=== PATIENT | male | born 1960 | race Caucasian/White ===

== ENCOUNTER → 2018-09-14 10:56 | Outpatient (REF) | payer BC, SELFPAY ==
[2018-09-09 11:35] VITALS: BMI 34.4
== END ==
LOC: CVS 10:56
PROVIDERS: Family Provider Family Medicine; PCP Family Medicine; Referring Provider Internal Medicine Cardiovascular Disease; Visit Provider Internal Medicine Cardiovascular Disease
DX: R00.2 Palpitations (principal)
CPT/HCPCS: 93270

== ENCOUNTER → 2018-10-14 08:28 | Outpatient (CLI) | payer BC, SELFPAY ==
[2018-10-09 13:48] VITALS: BMI 34.4
[2018-10-14 10:35] LABS: BNP,B-Type NATRIURETIC PEPTIDE 131.8 pg/mL (0-100)
== END ==
PROVIDERS: Family Provider Family Medicine; PCP Family Medicine; Referring Provider Internal Medicine Cardiovascular Disease; Visit Provider Internal Medicine Cardiovascular Disease
DX: I47.1 Supraventricular tachycardia (principal); I48.92 Unspecified atrial flutter; R00.2 Palpitations; R06.00 Dyspnea, unspecified
CPT/HCPCS: 36415; 83880

== ENCOUNTER → 2018-11-06 06:28 | Outpatient (CLI) | payer BC, SELFPAY ==
[2018-10-09 13:48] VITALS: BMI 34.4
--- NOTE | 2018-11-06 09:15 | STRESSREP ---
Stress Test Report Pharmacologic myocardial perfusion stress test. 57-year-old man with a history of atrial flutter. Stress protocol: Resting EKG demonstrates atrial flutter with a rate of 73 bpm resting blood pressures 118/80 6 cm of mercury. 0.4 mg of regadenoson was infused per usual protocol fluid Intravenous saline flush injection continuous borematic operator was performed. The maximum heart rate attained was 113 bpm which was 68% of maximum predicted heart rate and maximum workload was 1 metabolic equivalent. The patient maintained atrial flutter throughout the recording with no EKG changes suggestive of ischemia. The resting blood pressure was 118/86 with a final blood pressure 120/70 mmHg. Myocardial perfusion protocol. 14.8 mCi of technetium 99m sestamibi was injected at rest. 0.4 mg of regadenoson was infused per usual protocol. At peak infusion 44.6 mCi of technetium 99m sestamibi was injected stress images were obtained stress and rest images were reconstructed and compared in the short axis vertical and horizontal long axis. Gated images were also obtained Perfusion SPECT analysis: Review of the stress images demonstrate a normal cardiac silhouette size. The septum anterior wall lateral wall appear to be well perfused. The inferior wall demonstrates reduced perfusion from base to mid ventricle. The above is either suggestive of significant diaphragmatic attenuation or GI uptake. Previous infarct cannot be completely excluded. Gated SPECT analysis: The gated ejection fraction is noted to be 48%. Conclusion: Pharmacologic myocardial perfusion stress test with no obvious ischemia noted. Previous inferior infarct cannot be completely excluded. Mild cardiomyopathy. Atrial flutter present.
== END ==
PROVIDERS: Family Provider Family Medicine; PCP Family Medicine; Referring Provider Internal Medicine Cardiovascular Disease; Visit Provider Internal Medicine Cardiovascular Disease
DX: I48.0 Paroxysmal atrial fibrillation (principal); I48.92 Unspecified atrial flutter; I42.9 Cardiomyopathy, unspecified
CPT/HCPCS: 78452; 93017; A9500; A4216; J2785

== ENCOUNTER → 2020-05-08 | Outpatient (CLI) | payer OTHER, SELFPAY ==
[2019-12-14 13:25] VITALS: BMI 34.1
--- NOTE | 2020-05-08 11:30 | PROSBIL_PTH ---
PATIENT: ELMIRA PLASENCIA LOC: [facility] U#:[id number] AGE/SX: 59/M ROOM: RE05/08/[address]: Dr. Seth Santamaria MD : 1960 BED: DIS: 05/08/2020 SPEC #: [id number] RECD: 05/08/20 12:24 STATUS: ZHENG REQ #: [id number] DIANA: 05/08/20 11:[address]: Seth Santamaria DEPT: SURGICAL PATHOLOGY RECD BY: Yisel Price ENTERED: 05/08/20 13:02 SP TYPE: PROST BX MATEO DR: Dr. Sandro Khan MD Tissues: A - PROSTATE RIGHT B - PROSTATE RIGHT C - PROSTATE RIGHT D - PROSTATE LEFT E - PROSTATE LEFT F - PROSTATE LEFT Procedures: PROSTATE BX HEADER OPERATION: Prostate biopsy PRE-OP DIAGNOSIS: Elevated PSA TISSUE SUBMITTED: A - Right apex, B - Right mid, C - Right base, D - Left apex, E - Left mid, F - Left base MICROSCOPIC DIAGNOSIS A. Right prostate, apex, core biopsy: Prostatic adenocarcinoma. Chuck grade: 5+5-10 Number of cores involved: 1/2 Proportion of tissue involved: 15-20% Perineural invasion: Not identified. Greatest tumor length: 0.7 cm, discontinuous B. Right prostate, mid, core biopsy: Prostatic adenocarcinoma. Chuck grade: 4+4=9 Number of cores involved: 2/2 Proportion of tissue involved: ~95% Perineural invasion: Present. Greatest tumor length: 1.4 cm See comment. C. Right prostate, base, core biopsy: Prostatic adenocarcinoma. Chuck grade: 5+3=8 Number of cores involved: 3/3 Proportion of tissue involved: 100% Perineural invasion: Present Greatest tumor length: 1.2 cm See comment. D. Left prostate, apex, core biopsy: Prostatic tissue, negative for malignancy. E. Left prostate, mid, core biopsy: Prostatic tissue, negative for malignancy. F. Left prostate, base, core biopsy: Prostatic tissue, negative for malignancy. SJ:martin 05/09/2020 COMMENT B. Tertiary pattern 3 is also noted. C. Tertiary pattern 4 is also noted. Case has been reviewed in consultation with Dr. Mccann who concurs with the above diagnosis. IDC:AM MICROSCOPIC DESCRIPTION Slides are reviewed. GROSS DESCRIPTION A - Received is one container designated prostate, right apex. The specimen consists of one elongated fragment of light saez-white soft tissue measuring 1 cm in length and 0.1 cm in diameter. The specimen is totally submitted in one cassette. B - Received is one container designated prostate, right mid. The specimen consists of two elongated fragments of light saez-white soft tissue measuring 1 and 1.5 cm in length and 0.1 cm in diameter. The specimen is totally submitted in one cassette. C - Received is one container designated prostate, right base. The specimen consists of three elongated fragments of light saez-white soft tissue measuring 1 and 1.5 cm in length and 0.1 cm in diameter. The specimen is totally submitted in two cassettes. D - Received is one container designated prostate, left apex. The specimen consists of two minute fragments of light saez-white soft tissue measuring 0.2 and 0.3 cm in length and 0.1 cm in diameter. The specimen is totally submitted in one cassette. E - Received is one container designated prostate, left mid. The specimen consists of two elongated fragments of light saez-white soft tissue measuring 0.8 and 1 cm in length and 0.1 cm in diameter. The specimen is totally submitted in one cassette. F - Received is one container designated prostate, left base. The specimen consists of two elongated fragments of light saez-white soft tissue measuring 0.8 and 0.7 cm in length and 0.1 cm in diameter. The specimen is totally submitted in one cassette. / SJ:rg 05/08/20 TC:0 CPT: 65317 x6
== END | disposition home or self-care (01) ==
LOC: LABSPEC 12:59
PROVIDERS: PCP Family Medicine; Referring Provider Urology; Visit Provider Urology
DX: R97.20 Elevated prostate specific antigen [PSA] (principal)
CPT/HCPCS: 88305; G0416

== ENCOUNTER → 2020-05-24 08:21 | Outpatient (CLI) | payer OTHER, SELFPAY ==
[2019-12-14 13:25] VITALS: BMI 34.1
--- NOTE | 2020-05-24 08:25 | NM_ITS ---
CLINICAL: 59-year-old male with reported history of carcinoma of the prostate. WHOLE BODY 99m Tc MDP RADIONUCLIDE BONE SCINTIGRAPHY COMPARISON: None available FINDINGS: Following the intravenous administration of 27.0 mCi of 99m Tc MDP, whole body bone images reveal: 1. Increased radiopharmaceutical concentration is identified in the acromioclavicular and sternoclavicular compartments of both shoulders, lateral glenohumeral compartment of the left shoulder, third and fifth lumbar vertebra posteriorly on the right, bilateral knees, the right-left midfoot. 2. The remaining skeletal structures are scintigraphically unremarkable with normal-appearing renal images and urinary bladder activity identified. NM/Bone Scan Whole Body IMPRESSION: 1. The increase in radiopharmaceutical concentration defined in the bilateral shoulders, lumbar spine, right and left knees, midfoot bilaterally is most consistent with degenerative arthritis. 2. There is no definitive typical scintigraphic evidence of diffuse axial skeletal metastatic disease on the current examination. Electronically Signed: Tod Menezes DO at 18:52 EST Tel , Service support ,
== END ==
PROVIDERS: PCP Family Medicine; Referring Provider Urology; Visit Provider Urology
DX: D40.0 Neoplasm of uncertain behavior of prostate (principal)
CPT/HCPCS: 78306

== ENCOUNTER → 2020-06-01 12:49 | Outpatient (CLI) | payer OTHER, SELFPAY ==
[2019-12-14 13:25] VITALS: BMI 34.1
--- NOTE | 2020-06-01 12:58 | MRI_ITS ---
STUDY: MR PELVIS WITH AND WITHOUT CONTRAST (PROSTATE) REASON FOR EXAM: Male, 59 years old. Prostate carcinoma TECHNIQUE: Standardized multiparametric prostate MRI with T1, T2, DWI/ADC sequences were obtained in 3 orthogonal planes, and dynamic contrast enhancement sequences. 20 mL ml of Dotarem contrast material was administered intravenously for the contrast portion of the examination. COMPARISON: None. FINDINGS: The prostate volume measures 67 mm3. The contours of the prostate gland are lobulated. There is mass effect on the bladder base. The transition zone is heterogenous. PI-RADS DWI score 5 - Focal markedly hypointense on ADC and markedly hyperintense on high b-value DWI; > 1.5 cm on axial. PI-RADS T2W score 5 - Non-circumscribed, homogeneous, moderately hypointense, and 4.2 cm greatest dimension. Contrast enhancement (+) Focal, earlier or contemporaneous with enhancement of adjacent normal prostatic tissues, and corresponding to a suspicious finding on T2WI and/or DWI. The peripheral zone is heterogenous. PI-RADS DWI score 5 - Focal moderately hypointense on ADC and markedly hyperintense on high b-value DWI; >1.5cm on axial or definite extraprostatic extension/invasive behavior. PI-RADS T2W score 5 - Circumscribed, homogenous moderate hypointense focus/mass (likely arising from transitional zone) confined to prostate and > 1.5 cm in greatest dimension or definite extraprostatic invasion/extension. Contrast enhancement (+) Focal, earlier or contemporaneous with enhancement of adjacent normal prostatic tissues, and corresponding to a suspicious finding on T2WI and/or DWI. The seminal vesicles diminished T2 signal intensity along the central right seminal vesicle (image 13 series 5; image 19 series 13), contiguous with prostate mass and demonstrating contrast enhancement, suggesting extraprostatic extension. The rectoprostatic angles are normal. There does not appear to be clear neurovascular involvement. Urinary bladder is normal without wall thickening. The vascular structures of the are normal. The visualized hollow viscus structures are normal. No bone marrow edema or mass lesion depicted. MRI/Pelvis W/WO Contrast IMPRESSION: 1. PIRADS v2.1 2019 -- 5 - Very high (clinically significant cancer is highly likely). Large (4.2 cm) hypointense T2 mass centered in the transitional zone (right dominant), extending into the peripheral zone, with restricted diffusion and contrast enhancement. Probable involvement of the right more than left seminal vesicle. Electronically Signed: Justin Patel MD ([place]) at 14:29 EST , Service support ,
--- NOTE | 2020-06-01 12:59 | RAD_ITS ---
STUDY: X-RAY - ORBITS REASON FOR EXAM: Male, 59 years old. MRI CLEARANCE. HX METAL IN BOTH EYES TECHNIQUE: 2 view(s) of the orbits were obtained. COMPARISON: None. FINDINGS: Normal bilateral orbits without a metallic orbital foreign body. Normal visualized facial bones. Normal paranasal sinuses. The soft tissue structures are unremarkable. RAD/Orbits for Foreign Body IMPRESSION: No demonstrated metallic orbital foreign body. The patient is cleared for an MRI examination. Electronically Signed: Amaury Velasco MD at 13:36 EST , Service support ,
== END ==
PROVIDERS: PCP Family Medicine; Referring Provider Urology; Visit Provider Urology
DX: C61 Malignant neoplasm of prostate (principal)
CPT/HCPCS: 70030; 72197; A9575

== ENCOUNTER 2020-07-06 09:28 | Observation (INO) | payer OTHER, SELFPAY ==
[2019-12-14 13:25] VITALS: BMI 34.1
[2020-06-28 12:00] LABS: Hematocrit 46.3 % (40-54); Hemoglobin 15.7 g/dL (13.0-16.5); Mean Corp Hgb Conc 33.9 g/dL (32-36); Mean Corpuscular Hgb 30.9 pg (27.0-32.0); Mean Corpuscular Volume 91.1 fL (80-94); Mean Platelet Vol. 10.1 fl (6.2-12.0); Platelet Count 211 K/mm3 (150-450); RBC Distribution Width CV 12.6 % (11.6-14.6); RBC Distribution Width SD 41.7 fl (35.1-43.9); Red Blood Count 5.08 M/mm3 (4.6-6.2); White Blood Count 4.2 K/mm3 (4.4-11.0)
[2020-06-28 12:12] LABS: International Normalized Ratio 1.3; Prothrombin Time (Protime)PT. 15.5 SECONDS (11.7-14.9)
[2020-06-28 12:13] LABS: Partial Thromboplast Time 39.8 Seconds (24.1-36.2)
[2020-06-28 12:27] LABS: AST(SGOT) 19 U/L (15-37); Alanine Aminotransfer ALT/SGPT 37 U/L (16-61); Albumin, Serum 3.8 g/dL (3.2-5.0); Alkaline Phosphatase 35 U/L (45-117); Anion Gap 3 (5-15); BUN 20 mg/dL (7-18); Bilirubin, Direct 0.18 mg/dL (0.00-0.30); Calcium,Total 9.2 mg/dL (8.5-10.1); Chloride 109 mmol/L (98-107); Creatinine, Serum 0.95 mg/dL (0.70-1.30); EST Glomerular Filtration Rate 86 mL/min (>60); Est Glom Filt Rate - Afr Amer 104 mL/min (>60); Globulin 3.2 g/dL (2.2-4.2); Glucose 103 mg/dL (74-106); Potassium 3.9 mmol/L (3.5-5.1); Sodium Level 144 mmol/L (136-145)
[2020-07-05] VITALS (14 sets, daily range): BP systolic 120–147; BP diastolic 63–94; PULSE 53–79; RESP 14–18; TEMP 36.3–36.9; O2SAT 92–98; BMI 33.6
--- NOTE | 2020-07-05 | PROST_PTH ---
PATIENT: ELMIRA PLASENCIA LOC: [facility] U#:[id number] AGE/SX: 59/M ROOM: MN305 RE07/06/[address]: Dr. Seth Santamaria MD : 1960 BED: 1 DIS: 07/07/2020 SPEC #: [id number] RECD: 07/06/20 08:59 STATUS: ZHENG NOE #: [id number] DIANA: 07/05/20 00:[address]: Seth Santamaria DEPT: SURGICAL PATHOLOGY RECD BY: Erwin Paniagua ENTERED: 07/06/20 10:44 SP TYPE: PROSTATE OTHR DR: MD Dr. Alex Rooney MD Tissues: A - Adipose tissue B - Lymph node of pelvis, NOS C - Lymph node of pelvis, NOS D - Prostate, NOS Procedures: Surgery Specimen Level IV Surgery Specimen Level V HEADER OPERATION: Lap robotic prostatectomy, nerve monitoring PRE-OP DIAGNOSIS: Prostate cancer TISSUE SUBMITTED: A - Fat over prostate, B - Left pelvic lymph node, C - Right pelvic lymph node, D - Prostate MICROSCOPIC DIAGNOSIS A. Fat over prostate, biopsy: Mature adipose tissue. No evidence of malignancy. B. Left pelvic lymph node, regional lymphadenectomy: One out of one lymph node negative for carcinoma. C. Right pelvic lymph node, regional lymphadenectomy: One out of one lymph node negative for carcinoma. D. Prostate, radical prostatectomy: Adenocarcinoma. See cancer checklist below. AM:martin 07/07/2020 COMMENT PROSTATE CANCER (RADICAL) SUMMARY: Procedure: Radical Prostatectomy Prostate Size: Weight: 81 gm Size: 4.5 x 4.5 x 4.3 cm Histologic type: Adenocarcinoma Histologic grade: 10 (5+5) Percent of Pattern 4: 20% Percent of Pattern 5: 80% Intraductal Carcinoma: Not identified Tumor Quantitation: 85% Extraprostatic Extension: Present, multifocal, (right and left posterolateral and seminal vesicles). Urinary Bladder Neck Invasion: Not identified Seminal Vesicle Invasion: Present Lymphvascular Invasion: Not identified Perineural Invasion: Present, frequent Margins: Focally positive, right lateral margin. Area involved measures 2 mm in greatest dimension. Regional Lymph Nodes: Number of lymph nodes involved by carcinoma: 0 Total Number of Lymph Nodes Examined: 2 (see specimens B & C) Treatment Effect: Unknown Additional Pathologic Findings: Chronic inflammation PATHOLOGIC STAGE: pT3b N0 Mx The above summary is in compliance with [employer] (CAP) Cancer Protocols Checklist and [place] Joint Committee on Cancer (AJCC), Staging Manual, 8th Ed. Reference is made to the patient's prostate biopsy ([id number]) in which high grade prostate carcinoma was identified. Case has been reviewed in consultation with Dr. Calderon who concurs with the above diagnosis. IDC:SJ MICROSCOPIC DESCRIPTION Slides are reviewed. GROSS DESCRIPTION A - Received in fixative is one container labeled with the patient's name and designated fat over prostate. The specimen consists of multiple irregular fragments of yellow fatty tissue that in aggregate measure 4 x 4 x 0.6 cm. Sectioning does not reveal mass lesions. Pyrotechnic [employer]er sections are submitted in one cassette. B - Received in fixative is one container labeled with the patient's name and designated left pelvic lymph node. The specimen consists of multiple irregular fragments of yellow fatty tissue. Dissection reveals two firm saez nodules ranging in size from 0.8 to 1.5 cm. The smaller nodule is submitted in its entirety in cassette 1. The larger nodule is bisected and totally submitted in cassette 2. C - Received in fixative is one container labeled with the patient's name and designated right pelvic lymph node. The specimen consists of two irregular fragments of saez-yellow fatty tissue that in aggregate measure 5.7 x 3.5 x 0.8 cm. Sections reveal a single saez nodule measuring 2 cm in greatest dimension. This nodule is serially sectioned and submitted in one cassette. D - Received in fixative is one container labeled with the patient's name and designated prostate. The specimen consists of a prostate gland weighing 81 gm. The gland measures 4.5 cm transversely, 4.5 cm anterior-posteriorly and 4.3 cm craniocaudally. The attached seminal vesicle and vas deferens are grossly unremarkable. The specimen is differentially inked as follows: anterior - red, right half - blue, left half - green and entire posterior surface - black. The gland is serially sectioned from apex to base at approximately 3-4 mm. No distinct mass lesion is identified. Pyrotechnic Mixer sections are submitted as follows: 1 - distal urethral apex, shave, 2 - bladder shave, 3 & 4 - seminal vesicles, 5 & 6 - most basal section of prostate, 7-10 - apex, 11-16 - mid portion of prostate, 17-20 - basal portion of prostate. / AM:martin 07/06/20 TC:0 CPT: 06492 x3, 85590 ADDENDUM ADDENDUM ADDENDUM ADDENDUM ADDENDUM ADDENDUM ADDENDUM ADDENDUM ADDENDUM ADDENDUM ADDENDUM ADDENDUM ADDENDUM ADDENDUM ADDENDUM ADDENDUM ADDENDUM ADDENDUM ADDENDUM ADDENDUM ADDENDUM 07/15/2022 09:28 ADDENDUM 07/15/2022 09:28 ADDENDUM 07/15/2022 09:28 ADDENDUM 07/15/2022 09:28 ADDENDUM 07/15/2022 09:28 This addendum is added to incorporate an outside pathology consultation report. The case was examined at [facility] (#[id number]) and the following diagnosis was rendered. A. Fat over prostate, biopsy: Fibroadipose tissue with paraganglion, no tumor present B. Left pelvic lymph node, region lymphadenectomy: One lymph node, no tumor present. C. Right pelvic lymph node, region lymphadenectomy: One lymph node, no tumor present. D. Prostate and seminal vesicles, radical prostatectomy: Prostatic adenocarcinoma, Chuck score 9 (5+4), grade group 5, involving approximately 70% of the prostate. Intraductal carcinoma present. Extraprostatic extension present. Tumor invades seminal vesicles. Tumor extends to the right lateral resection margin (2 mm in greatest dimension). Please see complete above mentioned consultation report in EMR
[2020-07-05] MEDS: Lactated Ringers 1,000 ML 100 ML IV ×3 (07:11→12:45)
[2020-07-05] MEDS: Cefazolin 2 GM in 0.9% Normal Saline 100 ML IV (07:57)
--- NOTE | 2020-07-05 08:04 | HP.PCM_ITS ---
Problem List (1) Prostate cancer Status: Acute History of Present Illness Date of Admission: 07/05/20 Chief Complaint: Prostate cancer right prostate nodule The patient is a 59 year old male with a history of recent diagnosis of high- grade prostate cancer [place] [address] disease. He has a right hard nodule on the right side of the prostate concerned that may have extracapsular extension on that side we plan to do a wide dissection of the right side of the prostate and nerve sparing dissection of the left side of the prostate. Organ to do nerve monitoring to help dissect on the right side hopefully spare the nerves bundles with nerve monitoring on the right side since it can to be a tenuous dissection. He has a 46 g prostate. Metastatic work-up was negative for any metastatic disease. We will also plan to do lymph node dissection. Past Medical History Past Medical History (Chronic Problems): Chronic Problems (Last Reviewed 05/06/19 @ 14:[address] Juan M Diaz MD) Paroxysmal supraventricular tachycardia (Chronic) Paroxysmal atrial flutter (Chronic 08/18/18) Acute on chronic diastolic (congestive) heart failure (Chronic) Intermittent palpitations (Chronic) Medical History: Medical History (Last Reviewed 05/06/19 @ 14:[address] Juan M Diaz MD) Paroxysmal supraventricular tachycardia (Chronic) I47.1 Paroxysmal atrial flutter (Chronic) Onset Date: 08/18/18 I48.92 Acute on chronic diastolic (congestive) heart failure (Chronic) I50.33 Asthma J45.909 GERD (gastroesophageal reflux disease) K21.9 Obesity E66.9 Allergies No Known Allergies Allergy (Verified 06/28/20 10:14) Home Medications: Ambulatory Orders Medication Instructions Recorded albuterol sulfate 90 mcg/actuation 2 puff INHALATION Q6H PRN 09/07/18 aerosol inhaler fluticasone 100 mcg-salmeterol 50 1 puff INHALATION DAILY 90 Days 09/09/18 mcg/dose blistr powdr for #180 ea inhalation metoprolol succinate 50 mg 50 mg PO DAILY #90 tab 12/14/19 tablet,extended release 24 hr Albuterol Aerosols [Ventolin 2.5 mg INHALATION Q6H PRN PRN 06/28/20 Aerosols] Aspirin/Acetaminophen/Caffeine 1 ea PO PRN PRN 06/28/20 [Excedrin Migraine Caplet] Flecainide Acetate 100 mg PO BID 06/28/20 Ibuprofen 200 mg PO PRN PRN 06/28/20 Tamsulosin HCl [Flomax] 0.4 mg PO DAILY 06/28/20 Rivaroxaban [Xarelto] 20 mg PO QHS 07/05/20 Surgical History: Surgical History (Last Reviewed 05/06/19 @ 14:[address] 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 surgically reattached History of arthroscopy of left knee Z98.890 X 2 History of bilateral inguinal hernia repair Z98.890, Z87.19 History of left inguinal hernia repair Z98.890, Z87.19 Surgical History: no surgical history Smoking Status: Never smoker Tobacco Use: Chew Review of Systems Constitutional: Denies: Chills, Fever, Weight Change HEENT: Denies: Head Aches, Sinus Congestion, Sinus Drainage Cardiovascular: Denies: Chest Pain, Palpitations Respiratory: Denies: Cough, Shortness of breath at rest, Sputum production Gastrointestinal: Denies: Abdominal Pain, Nausea, Vomiting Genitourinary: Denies: Dysuria Musculoskeletal: Denies: Joint Pain, Joint Tenderness Skin: Denies: Rash, Wounds Neurological: Denies: Numbness, Tingling, Focal weakness Psychiatric: Denies: Anxiety, Depression, Homicidal Ideations, Suicidal Jerri ations Hematologic/ Lymphatic: Denies: Easy Bruising, Easy Bleeding VTE Information - Inpt Only VTE Present on Admission: No - Physical Exam Vitals/I&O's: Vital Signs Temp Pulse Resp BP Pulse Ox 98.1 F 53 L 14 123/80 H 97 07/05/20 07:01 07/05/20 07:01 07/05/20 07:01 07/05/20 07:01 07/05/20 07:01 Oxygen Delivery Method Room Air Weight: 107.8 kg Body Mass Index (BMI) 33.6 General: Alert, Oriented x3, Cooperative HEENT: Atraumatic, PERRLA, EOMI, Normocephalic Neck: Supple, No JVD, Negative Carotid Bruits Lungs: Clear to auscultation, Normal air movement Cardiovascular: Regular rate, No murmurs Abdomen: Bowel Sounds Present, Soft, Non Tender Extremities: No edema, Capillary Refill Less than 3 Seconds Skin: No rashes, No breakdown Musculoskeletal: No Tenderness to Palpation of Joints or Extremities Neurological: Cranial nerves II-XII grossly intact Psych/Mental Status: Normal Affect, Appropriate Current Medications Cefazolin Sodium 2 gm/ Sodium (Chloride) 110 mls @ 150 mls/hr IV PREOP ONE Stop: 07/05/20 08:43 Lactated Ringer's () 1,000 mls @ 100 mls/hr IV .Q10H MILA Last Admin: 07/05/20 07:11 Dose: 100 mls/hr Documented by: Lactated Ringer's () 1,000 mls @ 100 mls/hr IV .Q10H MILA Last Admin: 07/05/20 07:13 Dose: 100 mls/hr Documented by: Assessment/Plan All Active Problems (Last Reviewed 05/06/19 @ 14:[address] Juan M Diaz MD) Prostate cancer (Acute) Assessment and plan 59-year-old male with high risk prostate cancer [place] [address] disease with right hard nodule negative metastatic disease on work-up. Plan to proceed with a laparoscopic robotic assisted radical prostatectomy, plan to do a wide dissection on the right side nerve sparing in the left side and also will plan to do lymph node dissection bilaterally. Patient understands the risk of the procedure including loss of erections, incontinence, slow return of bladder control because of nonnerve sparing especially on one side. And also the potential that the surgery may not cure him and he may need more treatments such as radiation therapy or hormone deprivation therapy or even further treatments as the disease progresses. After long discussion with the patient and his fam dayan please see my office notes were to proceed with a radical prostatectomy.
--- NOTE | 2020-07-05 08:18 | PCM.DC.URO ---
Discharge Diet: Light diet - advance as tolerated Discharge Activity: May not drive while taking narcotic pain medications., May Shower Return to work on:: 08/16/20 Lifting Restrictions: No lifting more then 10 lbs for 6 weeks Call your doctor if your incision/area has: Sudden Increased Bleeding, Increased Pain/ Swelling, Increased Redness Call your doctor if you observe: Fever of 101 or Higher Suture Line Care: Avoid Pulling/Pushing, Avoid Pinching/Bending Instructions: Radical Prostatectomy Allergies/Adverse Reactions: Allergies No Known Allergies Allergy (Verified 06/28/20 10:14) Medications to take at Discharge albuterol sulfate 90 mcg/actuation aerosol inhaler 2 puff INHALATION Q6H PRN 09/07/18 fluticasone 100 mcg-salmeterol 50 mcg/dose blistr powdr for inhalation 1 puff INHALATION DAILY 90 Days #180 ea 09/09/18 metoprolol succinate 50 mg tablet,extended release 24 hr 50 mg PO DAILY #90 tab 12/14/19 Albuterol Aerosols [Ventolin Aerosols] 2.5 mg INHALATION Q6H PRN PRN 06/28/20 Aspirin/Acetaminophen/Caffeine [Excedrin Migraine Caplet] 1 ea PO PRN PRN 06/28/20 Flecainide Acetate 100 mg PO BID 06/28/20 Ibuprofen 200 mg PO PRN PRN 06/28/20 Tamsulosin HCl [Flomax] 0.4 mg PO DAILY 06/28/20 Ciprofloxacin [Cipro] 500 mg PO BID #14 tab 07/05/20 Docusate Sodium [Colace] 100 mg PO BID #20 cap 07/05/20 Hydrocodone Bitart/Apap 5-325 [[place] 5MG-325MG] 1 tab PO Q4H PRN PRN 7 Days #20 tab 07/05/20 Rivaroxaban [Xarelto] 20 mg PO QHS 07/05/20 The following prescriptions were given: Ciprofloxacin [Cipro] 500 mg PO BID #14 tab Transmission Status[facility] Docusate Sodium [Colace] 100 mg PO BID #20 cap Transmission Status: [facility] Hydrocodone Bitart/Apap 5-325 [[place] 5MG-325MG] 1 tab PO Q4H PRN PRN 7 Days #20 tab PRN Reason: Pain Transmission Status: [facility] Primary Care Physician: Sandro Khan MD [Primary Care Provider] - Test Results: Test results from this visit will be discussed in further detail at your follow-up appointment, if applicable. Please Follow Up With: Seth Santamaria MD When: in 2 weeks, please call to make an appointment. Proposed Discharge Date: 07/06/20
[2020-07-05] MEDS: Bupivacaine Mpf 0.5% 30 ML VIAL (09:09)
--- NOTE | 2020-07-05 12:45 | OP.PCM_ITS ---
Problem List (1) Prostate cancer Status: Acute Report of Operation Date of Procedure: 07/05/20 Pre-Operative Diagnosis: Prostate cancer Post-Operative Diagnosis: The same Surgery/Procedure Performed:: Laparoscopic robotic assisted radical prostatectomy. Bilateral pelvic lymph node dissection. Suture suspension of the urethra. EMG monitoring of pelvic and urethral nerves Description of Surgical Findings:: Patient presented to the hospital for treatment of his prostate cancer with radical prostatectomy. In the preoperative setting we discussed the options of management for his prostate cancer including active surveillance radiation therapy radioactive seeds and radical robotic prostatectomy we discussed the side effects of surgery including loss of erections, potential to have bladder control problems and stress incontinence, which could be temporary or permanent we discussed the risk of surgery including the risk of general anesthesia, risk of bleeding, risk of formation of hernia, inguinal hernia after long discussion with the patient in the preoperative setting also please review my preoperative notes in the office he proceed to go with a radical prostatectomy. In his specific case he had high-grade disease on the right side of the prostate we plan to do a wide dissection of the right side of the prostate and hopefully do a nerve sparing dissection the left side of the prostate. Patient was taken back to the operating room he was identified, timeout procedure was performed, is placed upon the table and he underwent general anesthesia with intubation. The abdomen shaved prepped and draped in usual sterile fashion as well as the penis and testicles. A 16 [place]yan[place] catheter was placed in the bladder with clear return of urine. I then an incision above the umbilicus and dissected down to the fascia using a Veress needle into the peritoneal cavity and insufflated insufflated the peritoneal cavity with CO2 gas. I then placed a 12 mm trocar above the umbilicus I then visualized the placement of the rest of the trochars I placed the right robotic trocar, and air seal trocar, a suction port 5 mm trocar, left-sided 2 robotic arms. Once all the trochars were placed and the patient was put in steep Trendelenburg. The robot was docked and the arms were docked and then I placed a 0 degree lens through the robotic arm and used a 30 degree lens during certain parts of the cases. I use incisions in the right arm, prograsp in the other arm and bipolar in the second arm. Initial dissection was to free the colon off the lateral wall this was done by meticulous dissection of the peritoneum and the sigmoid colon off the left lateral wall this allowed for the progress to retract the sigmoid out of the pelvis. Then I went below to the bladder and identified the vas deferens and traced the vas deferens down below the pelvis and below the prostate. I then dissected the seminal vesicle free on the right side using pinpoint electrocautery we then identified the other seminal vesicle on the left side and dissected this using pinpoint electrocautery. Then I elevated the vas deferens and seminal vesicles off the prostate and was able to sweep below the prostate I was above the rectum below the prostate and swept the fatty tissue all the way to the apex working laterally as much as possible. Was below Denonvilliers' fascia and right above rectus longitudinal muscles. I work my way back out of the pelvis this point the bladder was dropped and I created the space of Retzius there was some scar tissue from prior bilateral hernia repair on both sides after creating the space of Retzius the bladder was placed on traction with the fourth arm. Using electrocautery I dissected the anterior peritoneal fascia and then created the space of Retzius towards the prostate. The prostate was then cleaned of all the fat over the prostate using the fourth arm was used to retract the bladder and the placed the prostate and bladder on traction. I then went to the left pelvic sidewall identified the left external iliac artery and vein identified the node of [place] and then swept all the lymphatic tissue and lymph nodes off the left lateral wall performing a lymph node dissection identify the boundaries of my dissection which were the obturator nerve which was identified inferiorly the pelvic pelvic sidewall. The blood vessels and then all the fatty tissue between these identified landmarks were dissected free and all the fatty tissue was handed off as a specimen on the left side. We used generous clips during the dissection to control bleeding. I then went to the right side and identified the right external iliac artery and vein identified the right obturator nerve and then identified the node of [place] lymph node dissection was then performed into the space all the fatty lymphatic tissue was identified and removed there was one big lymph node is also removed on the right side. Generous clips were used to control lymphatic and vessels and also arteries and veins. I then went back to the prostate and identified the endopelvic fascia that was overlying the prostate on the right side and incised in endopelvic fascia and swept the levator muscles off the prostate all the way up to the apex on the right side I then worked my way anterior to the prostate and dissected the puboprostatic ligament and identified the dorsal vein complex this was not injured then I went to the other side of the proximal identify the endopelvic fascia and then incised the left side sweeping the left levator muscles off the prostate on the left side all the way to the apex again identified the puboprostatic ligament on the left side and then I dissected and transected and freed the fascia overlying the dorsal vein complex you used the prograsp encircled the dorsal vein complex and then stitched over the dorsal vein complex using needle drivers and suture ligated the dorsal vein complex above the prograsp. The progress was then placed back in the bladder put back on traction and then the junction between the bladder and prostate was identified between the bladder and prostate and came across the catheter as I dissected between the bladder prostate came across across the catheter and then dissected posterior to the bladder and freed up the prostate free from the bladder off the muscle between the bladder and prostate cauteriz ing to free the bladder off the prostate. Then I went to the top of the prostate identified the endopelvic fascia on the prostate proximal top of the prostate this was incised way to the apex and swept end of the fascia off the prostate laterally and identified the plane between endopelvic fascia and the prosthetic pseudocapsule and swept the fascia laterally until I reached the course of the neurovascular bundles. The neurovascular nodes in the right side were adherent to the prostate and because of the high-grade disease I performed a nonnerve sparing dissection on the right side. At this point the EMG electrodes were dropped into the pelvis the first electrode was placed in the pelvis and the right side the sac electrode pelvis on the left side we then using the EMG electrodes and stimulation we identified the course of the nerve nerve bundles on the left and right side once these nerve bundle course was identified then it continued with a dissection on the right side coming below the vas deferens and seminal vesicles I clipped the pedicle on the right side working my way underneath the prostate following the pedicle then worked as wide as possible doing a nonnerve dissection on the right side and working my way to the apex as I was working through the apex and we encountered some very tough adhesions between the rectal fibers and the prostate very meticulous that dissection had to be performed at this point in order to free up the longitudinal rectal fibers off the prostate all the way to the apex took extensive amount of time to do this to make sure that there is no injury to the rectum. Then I pulled back out of the prostate and went to the left side on the left side we did a nerve sparing dissection I came through the pedicles I then swept off the neurovascular tissue off the prostate laterally I then worked my way up the prostate on the left side all the way to the apex fortunately the side there was very little adhesions between the prostate and the rectum and I was able to get to the apex where the urethra was. We then transected through the dorsal vein complex. I then had to place the next extra stitch with a 3 oh needle Vicryl and secured the dorsal vein complex with an extra stitch in the dorsal vein complex. Once this was complete accomplished and there was no more bleeding from the dorsal vein complex transected through the dorsal vein complex and then dissected circumferentially around the urethra. This then allowed me to further continue the dissection inferiorly to identify the plane between the prostate and the rectum again it was extremely adherent on the posterior right side where the high-grade cancer was but I was able to get this up freed and then went through a nice plane between the rectum and the prostate ensuring that there was no injury to the rectum during this dissection the left side was also dissected free at this point then we transected through the urethra and then the posterior stump of the urethra was transected and then the prostate was free and placed in Endo Catch bag. After the prostate was removed and we checked for EMG stimulation on the left and right side again both of these stimulated very well we had good response we also checked the urethra for stimulation and there was good response from the urethral stimulation. The EMG electrodes were then removed. We inspected the pelvis placed FloSeal and Surgicel to control bleeding coming from the pelvic lateral garay. The bladder neck was then reconstructed using a 3-0 Vicryl we reconstruct the bladder neck to close the bladder neck so about the size of the pinky in order to perform an anastomosis between the bladder neck and the urethra and to do a supra suture suspension of the urethra to the bladder neck. After closing the bladder neck I used the extra stitch to go through the urethra to pull the urethra into good view I then performed an anastomosis between the bladder neck and the urethra using a double-armed suture with 3 oh V-Loc stitch we started at the 6 o'clock position and worked our way from 6:00 to 12 o'clock position in a running fashion after the anastomosis was performed between the bladder neck and the urethra in a continuous fashion then catheter was placed into the bladder we flushed the catheter and there was no leakage from the anastomosis. We then placed Surgicel and FloSeal on the edges on the left right and left edges in the pelvic sidewall where there is a minor oozing. At this point the robot was undocked we switch the extraction site to the camera port we extracted the prostate through the supraumbilical incision then we closed the supraumbilical incision with interrupted 0 Vicryl's a CT1 needle. The catheter was flushed to make sure there is no clots. We then we also closed our 1012 air seal port with a [place] stitch this was done under direct visualization. Patient with anesthetic was reversed it was a long case because of the difficult dissection between the rectum and the prostate of note also prior to closing we did fill the pelvis with water I had one of the nurses put a catheter tip syringe into the rectum and filled the rectum with air and there was no bubbles in the pelvis and no bubbles above the rectum so there was no signs of rectal injury. Patient's anesthetic is currently being reversed his incisions are being closed blood loss was about 300cc fluid replacement see the anesthesia chart and all sponges and needles were accounted for I was present during entire case. Type of Anesthesia:: General Drains: 18 fr mai - Admit VTE Documentation VTE Present on Admission: No VTE Mechan Device Prophylaxis: SCD's
[2020-07-05 13:34] LABS: Hematocrit 44.5 % (40-54); Hemoglobin 15.1 g/dL (13.0-16.5); Mean Corp Hgb Conc 33.9 g/dL (32-36); Mean Corpuscular Hgb 30.8 pg (27.0-32.0); Mean Corpuscular Volume 90.6 fL (80-94); Mean Platelet Vol. 10.1 fl (6.2-12.0); Platelet Count 204 K/mm3 (150-450); RBC Distribution Width CV 12.7 % (11.6-14.6); RBC Distribution Width SD 42.1 fl (35.1-43.9); Red Blood Count 4.91 M/mm3 (4.6-6.2); White Blood Count 9.2 K/mm3 (4.4-11.0)
[2020-07-05] MEDS: Ketorolac 15 MG/ML Vial IV ×2 (13:35→22:57)
[2020-07-05 13:47] LABS: Anion Gap 6 (5-15); BUN 19 mg/dL (7-18); BUN/Creat Ratio 12.8 RATIO (10-20); Calcium,Total 8.4 mg/dL (8.5-10.1); Chloride 108 mmol/L (98-107); Creatinine, Serum 1.48 mg/dL (0.70-1.30); EST Glomerular Filtration Rate 52 mL/min (>60); Est Glom Filt Rate - Afr Amer 63 mL/min (>60); Estimated Creatinine Clearance 56.86 ml/min; Glucose 136 mg/dL (74-106); Potassium 4.8 mmol/L (3.5-5.1); Sodium Level 140 mmol/L (136-145)
--- NOTE | 2020-07-05 14:20 | SUR.PHASEI ---
Addendum entered by Alyssa Ribeiro 07/05/20 14:38: PATIENT ANXIOUS ABOUT ALL THESE SENSATIONS, VERY CONCERNED ABOUT URGE TO VOID AND RECTAL PRESSURE FROM PROCEDURE, TINGLING SENSATION IN FINGERS. DR DODD NOTIFIED, ATIVAN ORDERED. EDUCATION, SUPPORT, AND REASSURANCE OFFERED. Original Note: RIGHT THUMB & FIRST FINGER FEELING NUMB & TINGLY. C/O RECTAL PRESSURE; DR MARTINEZ AT BEDSIDE & EVALUATED, CONTINUE CURRENT PLAN OF CARE.
[2020-07-05] MEDS: Lactated Ringers 1,000 ML 125 ML IV ×2 (15:00→23:08)
[2020-07-05] MEDS: Ciprofloxacin 400 MG/200 ML BAG 200 MG IV (16:09)
[2020-07-05] MEDS: Flecainide 100 MG Tablet PO (22:47)
[2020-07-05] MEDS: 0.9% Saline Lock 10 ML Syringe IV (22:58)
[2020-07-06] VITALS (7 sets, daily range): BP systolic 115–140; BP diastolic 66–79; PULSE 63–71; RESP 16–18; TEMP 36.6–37.2; O2SAT 93–99
[2020-07-06] MEDS: Ciprofloxacin 400 MG/200 ML BAG 200 MG IV (03:13)
[2020-07-06 06:49] LABS: Hematocrit 41.8 % (40-54); Hemoglobin 13.8 g/dL (13.0-16.5); Mean Corpuscular Hgb 30.5 pg (27.0-32.0); Mean Corpuscular Volume 92.3 fL (80-94); Mean Platelet Vol. 10.7 fl (6.2-12.0); Platelet Count 205 K/mm3 (150-450); RBC Distribution Width CV 12.9 % (11.6-14.6); RBC Distribution Width SD 43.9 fl (35.1-43.9); Red Blood Count 4.53 M/mm3 (4.6-6.2); White Blood Count 8.1 K/mm3 (4.4-11.0)
[2020-07-06] MEDS: 0.9% Saline Lock 10 ML Syringe IV (06:55)
[2020-07-06] MEDS: Ketorolac 15 MG/ML Vial IV ×3 (06:55→21:22)
[2020-07-06 07:19] LABS: Anion Gap 6 (5-15); BUN 20 mg/dL (7-18); BUN/Creat Ratio 18.2 RATIO (10-20); Calcium,Total 8.3 mg/dL (8.5-10.1); Chloride 105 mmol/L (98-107); EST Glomerular Filtration Rate 73 mL/min (>60); Est Glom Filt Rate - Afr Amer 89 mL/min (>60); Glucose 101 mg/dL (74-106); Potassium 4.3 mmol/L (3.5-5.1); Sodium Level 139 mmol/L (136-145)
--- NOTE | 2020-07-06 07:23 | PN_ITS ---
Patient Problems: Active and Suspected Problems (Last Reviewed 05/06/19 @ 14:[address] Juan M Diaz MD) Prostate cancer (Acute) Subjective: Postoperative day #1 status post robotic radical prostatectomy for advanced disease and is very difficult dissection the prostate was stuck to the rectum at the very tenuous dissection to get the prostate off the rectum. We did check for injury and there was no apparent injury to the rectum but given the difficult dissection I am not in a [place]ow[place] him out of the hospital we will watch him for another 24 hours here we can advance his diet to soft foods and liquids. Still has not passed any flatus. - Physical Exam Vitals/I&O's: Vital Signs Temp Pulse Resp BP Pulse Ox 98.6 F 71 18 131/78 H 98 07/06/20 06:48 07/06/20 06:48 07/06/20 06:48 07/06/20 06:48 07/06/20 06:48 Oxygen Flow Rate (L/min) 2 Oxygen Delivery Method Room Air Weight: 107.8 kg Body Mass Index (BMI) 33.6 Intake and Output for Last 24 Hours 07/04/20 07/05/20 07/06/20 23:59 23:59 23:59 Intake Total 5082.92 / 5082.92 1160.42 / 1160.42 Output Total 990 / 990 1350 / 1350 Balance 4092.92 / 4092.92 -189.58 / -189.58 General: Alert, Oriented x3, Cooperative HEENT: Atraumatic, PERRLA, EOMI, Normocephalic Neck: Supple, No JVD, Negative Carotid Bruits Lungs: Clear to auscultation, Normal air movement Cardiovascular: Regular rate, No murmurs Abdomen: Bowel Sounds Present, Soft, Non Tender Extremities: No edema, Capillary Refill Less than 3 Seconds Skin: No rashes, No breakdown Musculoskeletal: No Tenderness to Palpation of Joints or Extremities Neurological: Cranial nerves II-XII grossly intact Psych/Mental Status: Normal Affect, Appropriate Laboratory Results 07/05/20 13:22: WBC 9.2, RBC 4.91, Hgb 15.1, Hct 44.5, MCV 90.6, MCH 30.8, MCHC 33.9, RDW Std Deviation 42.1, RDW Coeff of Emily 12.7, Plt Count 204, MPV 10.1 07/05/20 13:22: Sodium 140, Potassium 4.8, Chloride 108 H, Carbon Dioxide 26.0, Anion Gap 6, BUN 19 H, Creatinine 1.48 H, Estim Creat Clear Calc 56.86, Est GFR (MDRD) Af Amer 63, Est GFR (MDRD) Non-Af 52 L, BUN/Creatinine Ratio 12.8, Glucose 136 H, Calcium 8.4 L 07/06/20 05:40: WBC 8.1, RBC 4.53 L, Hgb 13.8, Hct 41.8, MCV 92.3, MCH 30.5, MCHC 33.0, RDW Std Deviation 43.9, RDW Coeff of Emily 12.9, Plt Count 205, MPV 10.7 07/06/20 05:40: Sodium 139, Potassium 4.3, Chloride 105, Carbon Dioxide 28.0, Anion Gap 6, BUN 20 H, Creatinine 1.10, Estim Creat Clear Calc 76.50, Est GFR (MDRD) Af Amer 89, Est GFR (MDRD) Non-Af 73, BUN/Creatinine Ratio 18.2, Glucose 101, Calcium 8.3 L Current Medications Acetaminophen (Acetaminophen 325 Mg Tablet) 325 - 650 mg PO Q4H PRN PRN PRN Reason: pain score 1-10/fever/headache Hydrocodone Bitart/Acetaminophen (Hydrocodone Bitartrate/Apap 5/325 Tablet) 1 - 2 tablet PO Q6H PRN PRN PRN Reason: Pain Score 1-5 Albuterol Sulfate (Albuterol 2.5 Mg/3 Ml Vial.Neb.) 2.5 mg INHALATION Q6H PRN PRN PRN Reason: Asthma Albuterol Sulfate (Albuterol 2.5 Mg/3 Ml Vial.Neb.) 2.5 mg INHALATION Q6HWA.RT [facility] Belladonna Alkaloids/Opium (Opium/Belladonna Alkaloids 60 Mg/15 Mg Suppository) 60 mg RC Q6H PRN PRN PRN Reason: Spasm Budesonide (Budesonide Respules 0.5 Mg/2 Ml Ampul.Neb.) 0.5 mg INHALATION Q12H.RT [facility] Flecainide Acetate (Flecainide 100 Mg Tablet) 100 mg PO BID [facility] Last Admin: 07/05/20 22:47 Dose: 100 mg Documented by: Lactated Ringer's () 1,000 mls @ 125 mls/hr IV .Q8H MILA Last Infusion: 07/06/20 04:23 Dose: 125 mls/hr Documented by: Sodium Chloride () 250 mls @ 15 mls/hr IV .[id number] PRN PRN Reason: Saline Flush Sodium Chloride () 250 mls @ 15 mls/hr IV .[id number] PRN PRN Reason: Additional IVPB Infusion Ketorolac Tromethamine (Ketorolac 15 Mg/Ml Vial) 15 mg IV Q6H PRN PRN PRN Reason: PAIN Stop: 07/07/20 08:10 Last Admin: 07/06/20 06:55 Dose: 15 mg Documented by: Metoprolol Succinate (Metoprolol(Xl)Succ 50 Mg Tablet) 50 mg PO DAILY MILA Morphine Sulfate (Morphine 2 Mg/Ml Syringe) 2 mg IV Q2H PRN PRN PRN Reason: Pain Score 6-10 Ondansetron HCl (Ondansetron 4 Mg/2 Ml Vial) 4 mg IV Q8H PRN PRN Reason: Nausea Prochlorperazine Edisylate (Prochlorperazine 10 Mg/2 Ml Vial) 5 - 10 mg IV Q6H PRN PRN PRN Reason: Nausea/vomiting Sodium Chloride (0.9% Saline Lock 10 Ml Syringe) 10 - 40 ml IV UD PRN PRN Reason: SALINE FLUSH Last Admin: 07/06/20 06:55 Dose: 10 ml Documented by: Tolterodine Tartrate (Tolterodine Tartrate 4 Mg Cap.Sa) 4 mg PO DAILY PRN PRN PRN Reason: Spasms Medical Necessity - Tobacco Use Smoking Status: Never smoker Tobacco Use: Chew Assessment/Plan All Active Problems (Last Reviewed 05/06/19 @ 14:[address] Juan M Diaz MD) Prostate cancer (Acute) Post day #1 status post radical prostatectomy he is doing fairly well denies any current issues good urine output will see how he tolerates regular diet he can be up and around ambulating and moving advance diet as tolerated hopefully discharge tomorrow.
[2020-07-06] MEDS: Metoprolol(XL)Succ 50 MG Tablet PO (07:43)
[2020-07-06] MEDS: Flecainide 100 MG Tablet PO ×2 (07:43→21:23)
[2020-07-06] MEDS: Lactated Ringers 1,000 ML 125 ML IV ×3 (07:45→23:51)
[2020-07-07 02:45] VITALS: BP 140/79; PULSE 73; RESP 18; TEMP 36.3; O2SAT 99
[2020-07-07] MEDS: Ketorolac 15 MG/ML Vial IV ×2 (03:25→09:44)
[2020-07-07 07:16] LABS: Hematocrit 38.8 % (40-54); Mean Corp Hgb Conc 33.5 g/dL (32-36); Mean Corpuscular Hgb 30.8 pg (27.0-32.0); Mean Corpuscular Volume 91.9 fL (80-94); Mean Platelet Vol. 10.2 fl (6.2-12.0); Platelet Count 162 K/mm3 (150-450); RBC Distribution Width SD 43.2 fl (35.1-43.9); Red Blood Count 4.22 M/mm3 (4.6-6.2); White Blood Count 7.7 K/mm3 (4.4-11.0)
[2020-07-07 07:22] VITALS: O2SAT 96
[2020-07-07] MEDS: Lactated Ringers 1,000 ML 125 ML IV (07:22)
[2020-07-07 07:28] VITALS: BP 154/93; PULSE 75; RESP 16; TEMP 36.8; O2SAT 95
[2020-07-07 07:35] LABS: Anion Gap 6 (5-15); BUN 15 mg/dL (7-18); BUN/Creat Ratio 16.1 RATIO (10-20); Calcium,Total 8.3 mg/dL (8.5-10.1); Chloride 109 mmol/L (98-107); Creatinine, Serum 0.93 mg/dL (0.70-1.30); EST Glomerular Filtration Rate 89 mL/min (>60); Est Glom Filt Rate - Afr Amer 107 mL/min (>60); Estimated Creatinine Clearance 90.49 ml/min; Glucose 95 mg/dL (74-106); Potassium 3.9 mmol/L (3.5-5.1); Sodium Level 142 mmol/L (136-145)
--- NOTE | 2020-07-07 08:04 | PCM.DC.SUM ---
Discharge Date and Diagnosis - Problem List Patient Problems: Active and Suspected Problems (Last Reviewed 05/06/19 @ 14:[address] Juan M Diaz MD) Prostate cancer (Acute) Date of Admission: 07/05/20 Date of Discharge: 07/07/20 - Primary Discharge Diagnosis Acute Problems: Active Problems (Last Reviewed 05/06/19 @ 14:[address] Juan M Diaz MD) Prostate cancer (Acute) - Secondary Discharge Diagnosis Chronic Problems: Chronic Problems (Last Reviewed 05/06/19 @ 14:[address] Juan M Diaz MD) Paroxysmal supraventricular tachycardia (Chronic) Paroxysmal atrial flutter (Chronic 08/18/18) Acute on chronic diastolic (congestive) heart failure (Chronic) Intermittent palpitations (Chronic) Hospital Course and Treatment Operations: - - Robotic radical prostatectomy Summary of Care Provided: The patient is a 59 year old male with advanced prostate cancer underwent a radical prostatectomy quite difficult because the cancer was fixed to the rectum but was able to successfully free up the prostate off the rectum. He did well we kept in the hospital for next day for observation had no problems passing gas tolerating full liquid diet and he will be discharged home with Garcia catheter. Patient Problems: Active and Suspected Problems (Last Reviewed 05/06/19 @ 14:[address] Juan M Diaz MD) Prostate cancer (Acute) - Physical Exam Vitals/I&O's: Vital Signs Temp Pulse Resp BP Pulse Ox 98.3 F 75 16 154/93 H 95 07/07/20 07:28 07/07/20 07:28 07/07/20 07:28 07/07/20 07:28 07/07/20 07:28 Oxygen Flow Rate (L/min) 2 Oxygen Delivery Method Room Air Weight: 107.8 kg Body Mass Index (BMI) 33.6 Intake and Output for Last 24 Hours 07/05/20 07/06/20 07/07/20 23:59 23:59 23:59 Intake Total 5082.92 / 5082.92 4571.25 / 4571.25 1179.58 / 1179.58 Output Total 990 / 990 4450 / 4450 850 / 850 Balance 4092.92 / 4092.92 121.25 / 121.25 329.58 / 329.58 General: Alert, Oriented x3, Cooperative HEENT: Atraumatic, PERRLA, EOMI, Normocephalic Neck: Supple, No JVD, Negative Carotid Bruits Lungs: Clear to auscultation, Normal air movement Cardiovascular: Regular rate, No murmurs Abdomen: Bowel Sounds Present, Soft, Non Tender Extremities: No edema, Capillary Refill Less than 3 Seconds Skin: No rashes, No breakdown Musculoskeletal: No Tenderness to Palpation of Joints or Extremities Neurological: Cranial nerves II-XII grossly intact Psych/Mental Status: Normal Affect, Appropriate Laboratory Results 07/07/20 06:50: WBC 7.7, RBC 4.22 L, Hgb 13.0, Hct 38.8 L, MCV 91.9, MCH 30.8, MCHC 33.5, RDW Std Deviation 43.2, RDW Coeff of Emily 13.0, Plt Count 162, MPV 10.2 07/07/20 06:50: Sodium 142, Potassium 3.9, Chloride 109 H, Carbon Dioxide 27.0, Anion Gap 6, BUN 15, Creatinine 0.93, Estim Creat Clear Calc 90.49, Est GFR (MDRD) Af Amer 107, Est GFR (MDRD) Non-Af 89, BUN/Creatinine Ratio 16.1, Glucose 95, Calcium 8.3 L Current Medications Acetaminophen (Acetaminophen 325 Mg Tablet) 325 - 650 mg PO Q4H PRN PRN PRN Reason: pain score 1-10/fever/headache Hydrocodone Bitart/Acetaminophen (Hydrocodone Bitartrate/Apap 5/325 Tablet) 1 - 2 tablet PO Q6H PRN PRN PRN Reason: Pain Score 1-5 Albuterol Sulfate (Albuterol 2.5 Mg/3 Ml Vial.Neb.) 2.5 mg INHALATION Q6H PRN PRN PRN Reason: Asthma Albuterol Sulfate (Albuterol 2.5 Mg/3 Ml Vial.Neb.) 2.5 mg INHALATION Q6HWA.RT MILA Belladonna Alkaloids/Opium (Opium/Belladonna Alkaloids 60 Mg/15 Mg Suppository) 60 mg RC Q6H PRN PRN PRN Reason: Spasm Budesonide (Budesonide Respules 0.5 Mg/2 Ml Ampul.Neb.) 0.5 mg INHALATION Q12H.RT [facility] Flecainide Acetate (Flecainide 100 Mg Tablet) 100 mg PO BID [facility] Last Admin: 07/06/20 21:23 Dose: 100 mg Documented by: Lactated Ringer's () 1,000 mls @ 125 mls/hr IV .Q8H [facility] Last Admin: 07/07/20 07:22 Dose: 125 mls/hr Documented by: Sodium Chloride () 250 mls @ 15 mls/hr IV .[id number] PRN PRN Reason: Saline Flush Sodium Chloride () 250 mls @ 15 mls/hr IV .[id number] PRN PRN Reason: Additional IVPB Infusion Ketorolac Tromethamine (Ketorolac 15 Mg/Ml Vial) 15 mg IV Q6H PRN PRN PRN Reason: PAIN Stop: 07/07/20 08:10 Last Admin: 07/07/20 03:25 Dose: 15 mg Documented by: Metoprolol Succinate (Metoprolol(Xl)Succ 50 Mg Tablet) 50 mg PO DAILY [facility] Last Admin: 07/06/20 07:43 Dose: 50 mg Documented by: Morphine Sulfate (Morphine 2 Mg/Ml Syringe) 2 mg IV Q2H PRN PRN PRN Reason: Pain Score 6-10 Ondansetron HCl (Ondansetron 4 Mg/2 Ml Vial) 4 mg IV Q8H PRN PRN Reason: Nausea Prochlorperazine Edisylate (Prochlorperazine 10 Mg/2 Ml Vial) 5 - 10 mg IV Q6H PRN PRN PRN Reason: Nausea/vomiting Sodium Chloride (0.9% Saline Lock 10 Ml Syringe) 10 - 40 ml IV UD PRN PRN Reason: SALINE FLUSH Last Admin: 07/06/20 06:55 Dose: 10 ml Documented by: Tolterodine Tartrate (Tolterodine Tartrate 4 Mg Cap.Sa) 4 mg PO DAILY PRN PRN PRN Reason: Spasms Discharge Diet: Light diet - advance as tolerated Discharge Activity: May not drive while taking narcotic pain medications., May Shower Return to work on:: 08/16/20 Call your doctor if your incision/area has: Sudden Increased Bleeding, Increased Pain/ Swelling, Increased Redness Call your doctor if you observe: Fever of 101 or Higher Suture Line Care: Avoid Pulling/Pushing, Avoid Pinching/Bending Home Medications: Medications to take at Discharge albuterol sulfate 90 mcg/actuation aerosol inhaler 2 puff INHALATION Q6H PRN 09/07/18 fluticasone 100 mcg-salmeterol 50 mcg/dose blistr powdr for inhalation 1 puff INHALATION DAILY 90 Days #180 ea 09/09/18 metoprolol succinate 50 mg tablet,extended release 24 hr 50 mg PO DAILY #90 tab 12/14/19 Albuterol Aerosols [Ventolin Aerosols] 2.5 mg INHALATION Q6H PRN PRN 06/28/20 Aspirin/Acetaminophen/Caffeine [Excedrin Migraine Caplet] 1 ea PO PRN PRN 06/28/20 Flecainide Acetate 100 mg PO BID 06/28/20 Ibuprofen 200 mg PO PRN PRN 06/28/20 Tamsulosin HCl [Flomax] 0.4 mg PO DAILY 06/28/20 Ciprofloxacin [Cipro] 500 mg PO BID #14 tab 07/05/20 Docusate Sodium [Colace] 100 mg PO BID #20 cap 07/05/20 Hydrocodone Bitart/Apap 5-325 [[place] 5MG-325MG] 1 tab PO Q4H PRN PRN 7 Days #20 tab 07/05/20 Montelukast [Singulair] 10 mg PO QHS 07/05/20 Rivaroxaban [Xarelto] 20 mg PO QHS 07/05/20 Ciprofloxacin [Cipro] 500 mg PO BID #20 tab 07/06/20 Docusate Sodium [Colace] 100 mg PO BID #20 cap 07/06/20 Hydrocodone Bitart/Apap 5-325 [[place] 5MG-325MG] 1 tab PO Q4H PRN PRN 7 Days #14 tab 07/06/20 Following Prescriptions Were Given to Patient: Ciprofloxacin [Cipro] 500 mg PO BID #14 tab Transmission Status: Received by [facility] Ciprofloxacin [Cipro] 500 mg PO BID #20 tab Prescription Printed Docusate Sodium [Colace] 100 mg PO BID #20 cap Transmission Status: Received by [facility] Docusate Sodium [Colace] 100 mg PO BID #20 cap Prescription Printed Hydrocodone Bitart/Apap 5-325 [[place] 5MG-325MG] 1 tab PO Q4H PRN PRN 7 Days #20 tab PRN Reason: Pain Transmission Status: Received by [facility] Hydrocodone Bitart/Apap 5-325 [[place] 5MG-325MG] 1 tab PO Q4H PRN PRN 7 Days #14 tab PRN Reason: Pain Prescription Printed Primary Care Physician: Sandro Khan MD [Primary Care Provider] - Please Follow Up With: Seth Santamaria MD When: in 2 weeks, please call to make an appointment. Patient Instructions: Radical Prostatectomy Medical Necessity - Tobacco Use Smoking Status: Never smoker Tobacco Use: Chew Meaningful Use Info Meaningful Use Diagnoses (Choose all that apply): None applicable
[2020-07-07 09:43] VITALS: PULSE 80
[2020-07-07] MEDS: Metoprolol(XL)Succ 50 MG Tablet PO (09:43)
[2020-07-07] MEDS: Flecainide 100 MG Tablet PO (09:43)
[2020-07-07] MEDS: 0.9% Saline Lock 10 ML Syringe IV (09:44)
[2020-07-07 10:01] VITALS: BP 143/81; PULSE 65; RESP 16; TEMP 36.8; O2SAT 94
--- NOTE | 2020-07-07 10:51 | NURSING ---
pt spent time on hold with his mail order pharmacy this am trying to get 3 scripts (that were accidently e-scripted to them in error per dr ellis) stopped so he can have them filled locally on a short term basis (as his coverage requires)-the mail order Rx says it is already being shipped and they can not stop the shipment, pt has paper scripts that he can have filled -they are to call [phone] for over ride if have problems filling
== END 2020-07-07 13:10 | disposition home or self-care (01) ==
LOC: SDC 09:41 → MS3 09:41
PROVIDERS: Anesthesiology; Admitting Provider Urology; PCP Family Medicine; Referring Provider Urology; Visit Provider Urology
PROC: 0VT04ZZ Resection of Prostate, Percutaneous Endoscopic Approach (ICD-10-PCS; CPT 55866; principal; 2020-07-05 07:40)
DX: C61 Malignant neoplasm of prostate (principal); I48.92 Unspecified atrial flutter; I47.1 Supraventricular tachycardia; I50.32 Chronic diastolic (congestive) heart failure; E66.9 Obesity, unspecified; K21.9 Gastro-esophageal reflux disease without esophagitis; J45.909 Unspecified asthma, uncomplicated; F17.220 Nicotine dependence, chewing tobacco, uncomplicated; Z79.899 Other long term (current) drug therapy; Z79.82 Long term (current) use of aspirin; Z79.01 Long term (current) use of anticoagulants; Z79.51 Long term (current) use of inhaled steroids; Z86.718 Personal history of other venous thrombosis and embolism
CPT/HCPCS: 38571; 55866; 36415; 80048; 80076; 85027; 85610; 85730; 88304; 88305; 88307; 88309; 96361; 96365; 96366; 96375; 96376; 99218; 99406; J7120; A4216; G0378; G0379; J0744; J2405

== ENCOUNTER → 2020-08-29 09:01 | Outpatient (CLI) | payer OTHER, SELFPAY ==
[2020-07-25 14:14] VITALS: BMI 33.4
[2020-08-29 10:09] LABS: PSA,Total- Diagnostic 7.97 ng/mL (0.0-4.0)
== END ==
PROVIDERS: PCP Family Medicine; Referring Provider Urology; Visit Provider Urology
DX: C61 Malignant neoplasm of prostate (principal)
CPT/HCPCS: 36415; 84153

== ENCOUNTER → 2020-10-03 13:45 | Outpatient (CLI) | payer OTHER, SELFPAY ==
[2020-07-25 14:14] VITALS: BMI 33.4
--- NOTE | 2020-10-03 14:00 | PET_ITS ---
EXAMINATION: 18F Fluciclovine PET/CT CLINICAL HISTORY: A 59-year-old male with reported history of carcinoma of the prostate presenting for restaging examination. COMPARISON EXAMINATION: None available PROCEDURE: The patient received an intravenous bolus injection of 10.08 mCi of Axumin (fluciclovine F-18) via the right hand, on the imaging table with the patient in the supine position followed by an intravenous normal saline flush. The patient in the supine position with arms above the head, CT scan for attenuation correction was performed immediately following the bolus injection and left up for 1-2 minutes. The PET scan acquisition was begun within 3-5 minutes following injection from mid thigh to the base of the skull. The total scan time was registered between 20-30 minutes. Axumin (fluciclovine F-18) injection is indicated for positron emission tomography PET imaging in men with suspected prostate cancer recurrence based on elevation of the serum prostatic surface antigen (PSA) levels following prior treatment intervention. HEIGHT: 70 inches. WEIGHT: 240 lbs. LIVER BLOOD POOL SUV: 9.2 BLOOD POOL: 1.4 BONE MARROW: 3.8 INDEX LESION SIZE SUV INTERPRETATION Lower pelvis, prostate bed 27.9-mm (frame 49) 4.8 > bone marrow, blood pool ref. Fulfills quantitative criteria for viable neoplasm Upper midline, right mid pelvic mesentery soft tissue nodularity 18.9-mm (largest) (frame 81) 5.1 (max) > bone marrow, blood pool ref. Fulfills quantitative criteria for viable neoplasm NON-INDEX LESION SIZE SUV INTERPRETATION Left supraclavicular region 12.6-mm (frame 217) 4.7 Most consistent with reactive adenopathy FINDINGS: Head/Neck: There is symmetric radiopharmaceutical concentration defined in the bilateral parotid glands. There is no evidence of abnormal increased radiopharmaceutical concentration within the cranial vault. CHEST: Asymmetric increased fluorine-18 fluciclovine uptake is noted in the left supraclavicular region. The calculated maximal standard uptake value is 4.7, greater than bone marrow and blood pool reference. The corresponding soft tissue density on review of CT of the neck and chest dated 10/03/20 is 12.6-mm (transverse). No other definitive metabolic abnormalities are noted within the context of the right and left hemithorax. Pertinent chest CT findings are as follows. Atherosclerotic calcification is defined in the thoracic aorta. The maximal axial diameter of the ascending thoracic aorta is 43.1-mm. Coronary arterial calcification is observed. Bilateral axillary and mediastinal soft tissue densities are non-fluciclovine avid. There are no parenchymal densities-nodules defined in the right and left hemithorax with discernible increased radiopharmaceutical concentration. Abdomen/Pelvis: Increased radiopharmaceutical concentration is defined in the lower pelvis associated with the apparent prostate bed caudal to the urinary bladder. The calculated maximal standard uptake value is 4.8, greater than the bone marrow and blood pool reference. The maximal axial diameter of the metabolic abnormality is 27.9-mm (AP). Several nodular foci of increased tracer distribution are manifest within the upper-mid pelvic mesentery in the midline and to the right of the midline generating a calculated maximal standard uptake value of 5.1, greater than bone marrow and blood pool reference. The maximal axial diameter of the largest individual metabolic, morphologic abnormality on review of CT of the pelvis dated 10/03/20 is 18.9-mm (AP). Normal physiologic distribution of the radiopharmaceutical is apparent in the hepatic and splenic parenchyma, pancreas, pancreatic head-tail, both renal units, bladder and visualized intestinal tract. Pertinent abdomen and pelvis CT findings are as follows. There is atherosclerotic calcification defined in the abdominal aorta without evidence of dilatation-aneurysm formation. Small fat containing bilateral inguinal hernias are noted. Right and left inguinal subcentimeter soft tissue densities with fatty hilus are non-fluciclovine avid. Skeletal: Degenerative changes are noted in the cervical, thoracic and lumbar spine without evidence of increased radiopharmaceutical concentration. There is no evidence of sclerotic, mixed sclerotic-lytic and/or lytic changes noted on review of the skeletal structures manifesting an increase in radiopharmaceutical concentration. PET/PET/CT Tumor Base -Thigh Subs IMPRESSION: 1. ABNORMAL EXAMINATION INDICATIVE OF FLUCICLOVINE AVID VIABLE NEOPLASM. 2. Increased radiopharmaceutical concentration noted in the lower pelvis in the region of the prostate bed, as well as upper midline and right mid pelvic mesentery corresponding to soft tissue nodularity fulfill quantitative criteria for viable neoplasm. (Mello et al, Journal of Nuclear Medicine 55:1986, 2014). 3. No other quantitatively significant metabolic abnormalities are discerned. 4. Facilitated radiopharmaceutical concentration noted in the left supraclavicular region likely represents a component of reactive adenopathy. Electronic Signature Tod Menezes D.O. Electronically Signed: Tod Menezes DO at 9:51 EDT Tel , Service support ,
== END ==
PROVIDERS: PCP Family Medicine; Referring Provider Urology; Visit Provider Urology
DX: C61 Malignant neoplasm of prostate (principal)
CPT/HCPCS: 78815; A9588

== ENCOUNTER 2020-11-15 09:38 | Day surgery (SDC) | payer OTHER, SELFPAY ==
[2020-07-25 14:14] VITALS: BMI 33.4
[2020-11-15 10:09] VITALS: BP 122/82; PULSE 49; RESP 16; TEMP 36.5; O2SAT 98; BMI 32.5
[2020-11-15] MEDS: Lactated Ringers 1,000 ML 100 ML IV (10:15)
--- NOTE | 2020-11-15 11:24 | PCM.HP.STD ---
HPI - General HPI Narrative ELMIRA PLASENCIA, is a 59 M who presents for placement of gold markers, he had a radical prostatectomy with high risk disease and was found to have advanced disease with lymph nodes involved in the pelvic region. So today were taken to the operating room and placed gold markers for radiation planning. We are not going to do a spacer gel as I explained to the patient because he does not have a prostate and is not indicated in those situations. But I did want to do the procedure under anesthesia given how difficult and how much scar tissue the prior surgery had. After explaining this to the patient he was satisfied signed a consent form again to proceed with placement of gold markers under anesthesia. [facility] Medical History (Updated 11/08/20 @ 11:43 by Snow Yao) Acute on chronic diastolic (congestive) heart failure Alcohol use Asthma Back pain Cardiology follow-up encounter DVT (deep venous thrombosis) Easy bruising GERD (gastroesophageal reflux disease) History of COVID-19 History of echocardiogram History of kidney stones History of stress test Hypertension Injury of head and neck Migraine headache Obesity Paroxysmal atrial flutter (08/18/18) Paroxysmal supraventricular tachycardia Prostate cancer Wears contact lenses Wears hearing aid Home Medications albuterol sulfate 90 mcg/actuation aerosol inhaler 2 puff INHALATION Q6H PRN 09/07/18 [History Last Taken 11/15/20 06:00] albuterol sulfate 2.5 mg INHALATION Q6H PRN PRN 06/28/20 [History Last Taken 11/15/20 06:00] ivwrasw-bfmxgczwpqmjw-mxzkhofw 1 ea PO PRN PRN 06/28/20 [History Last Taken 07/04/20] ibuprofen 200 mg PO PRN PRN 06/28/20 [History Last Taken Unknown] montelukast 10 mg PO QHS 07/05/20 [History Last Taken Unknown] rivaroxaban 20 mg PO QHS 07/05/20 [History Last Taken 11/12/20 06:00] flecainide 100 mg PO BID 11/08/20 [History Last Taken 11/15/20 06:00] fluticasone propion-salmeterol [Advair Diskus] 1 inh INHALATION DAILY 11/08/20 [History Last Taken Unknown] metoprolol succinate 50 mg PO DAILY 11/08/20 [History Last Taken 11/15/20 06:00] Allergy/AdvReac Type Severity Reaction Status Date / Time No Known Allergies Allergy Verified 11/15/20 10:05 Family History Mother CAD (coronary artery disease) Kidney disease Father Cancer Heart disease CHF Uncle Myocardial infarction Paternal from [place] age 38 Surgical History History of amputation of finger of right hand History of arthroscopy of left knee History of bilateral inguinal hernia repair History of left inguinal hernia repair History of prostatectomy (07/05/20) Social History (Updated 07/25/20 @ 14:[address] Juan M Diaz MD) Smoking Status: Never smoker Smokeless tobacco user: chewing tobacco and other alcohol intake: current alcohol intake frequency: a few times a week substance use type: does not use caffeine: No ROS Constitutional Constitutional: Denies chills, fever(s) or malaise Eyes Eyes: Denies blurry vision or change in vision ENT HEENT: Reports none Cardiovascular Cardiovascular: Denies chest pain or palpitations Respiratory/Chest Respiratory/Chest: Denies cough or shortness of breath with exertion Gastrointestinal Gastrointestinal: Denies abdominal pain, constipation or diarrhea Musculoskeletal Musculoskeletal: Denies back pain, joint stiffness or joint swelling Integumentary Integumentary: Denies dry skin, jaundice, lesions or rash Neurologic Neurologic: Denies confusion, syncope or weakness Psychiatric Psychiatric: Reports none; Denies anxiety or depression Endocrine Endocrinology: Denies excessive sweating, fatigue or flushing Hematologic/Lymphatic Hematologic/Lymphatic: Denies anemia, easy bleeding or easy bruising Vital Signs Vital Signs Vital Signs: 11/15/20 10:09 Temperature 97.7 F L Temperature Source Temporal Pulse Rate 49 L Respiratory Rate 16 Respiratory Pattern Normal Blood Pressure 122/82 H Blood Pressure Mean 95 Blood Pressure Source Monitor Blood Pressure Position Sitting Blood Pressure Location Right Arm Pulse Ox 98 Oxygen Delivery Method Room Air Weight Weight: 104.2 kg Body Mass Index (BMI) 32.5 Physical Exam Const alert and oriented x3 General Appearance: cooperative HEENT normocephalic, head/scalp atraumatic, EAC's normal and TM's normal bilaterally Eyes PERRL and EOMs intact bilaterally Pupil: sluggish Neck no lymphadenopathy, supple and no JVD General: trachea midline Lymph Lymphatic: no lymphadenopathy noted, lymphedema and lymphadenopathy Resp normal respiratory effort, normal air movement and clear to auscultation bilaterally Cardio regular rate, regular rhythm and peripheral pulses 2+ throughout GI soft to palpation, non-tender and non-distended Extremity normal capillary refill and no clubbing, cyanosis or edema General Extremity: no tenderness to palpation of joints or extremities Skin no rashes or lesions noted General Skin Exam: turgor normal Lesions: no lesions Rashes: no rashes Neuro CN's II-XII intact bilaterally Speech: speech normal Motor Exam: strength 5/5 throughout; Negative for general weakness Psych thought process normal, cooperative and affect normal Appearance: appropriate Assessment & Plan Assessment/Plan (1) Prostate cancer: PLAN: 59-year-old male with locally advanced prostate cancer with positive lymph nodes in the pelvic area status post radical prostatectomy with high risk disease he is going to have to have multimodality therapy currently on androgen deprivation therapy and working to proceed with radiation therapy to the pelvic area replace markers today and planning for that radiation therapy.
--- NOTE | 2020-11-15 11:26 | PCM.DC ---
Discharge Instructions Diet Discharge Diet: No restrictions Activity Discharge Activity: Return to Normal Activity and May Not Drive (while taking narcotic pain medications.) Dressing / Incision Call your doctor if you observe: Fever of 101 or Higher Follow Up Care Please Follow Up With: Seth Santamaria MD When: Call [phone] for an appointment Test Results: Test results from this visit will be discussed in further detail at your follow-up appointment, if applicable. Discharge Plan Admission Attending Provider: Seth Santamaria Primary Care Provider: Sandro Khan Discharge Orders/Prescriptions Prescriptions: No Action albuterol sulfate [Ventolin HFA] 90 mcg/actuation HFA aerosol inhaler 2 puff INHALATION Q6H PRN (Reason: Asthma) RF: 0 albuterol sulfate 2.5 MG/3 ML solution for nebulization 2.5 mg INHALATION Q6H PRN PRN (Reason: Asthma) RF: 0 ibuprofen 200 MG capsule 200 mg PO PRN PRN (Reason: Pain 1-10 Or Fever) RF: 0 iiynoit-vfmzroupgzqoh-wwqgcysz 1 EACH tablet 1 ea PO PRN PRN (Reason: Migraine Symptoms) RF: 0 rivaroxaban 20 MG tablet 20 mg PO QHS RF: 0 montelukast 10 MG tablet 10 mg PO QHS RF: 0 fluticasone propion-salmeterol [Advair Diskus] 100-50 mcg/dose Blister With Device 1 inh INHALATION DAILY RF: 0 metoprolol succinate 50 mg tablet extended release 24 hr 50 mg PO DAILY RF: 0 flecainide 100 mg tablet 100 mg PO BID RF: 0
[2020-11-15] MEDS: Cefazolin 2 GM in 0.9% Normal Saline 100 ML IV (11:31)
--- NOTE | 2020-11-15 11:50 | OP.PCM_ITS ---
Report of Operation Date of Procedure: 11/15/20 Pre-Operative Diagnosis: Recurrent prostate cancer, advanced prostate cancer Post-Operative Diagnosis: Same Surgery/Procedure Performed:: Transperineal placement of gold fiducial markers for radiation planning Description of Surgical Findings:: Indication this is a 59-year-old male was found to have very high risk prostate cancer, he underwent a robotic radical prostatectomy and had persistence of disease afterwards PET scan was done that demonstrated multiple lymph nodes that lit up in the pelvic area he has been started on hormone deprivation therapy and at this point working start him on radiation salvage therapy we will taken to the operating room today for placement of gold markers so that he can then undergo radiation with wide field and treatment of the pelvic lymph nodes that are involved with cancer. 59-year-old male with very high risk prostate cancer, he was placed in dorsolithotomy position. The ultrasound probe was inserted into the rectum and ultrasonography was done no masses was seen within the pelvis the bladder was slightly distended and then through the perineum I placed for gold fiducial markers to in the left side and to the right side to chilo the area. Once the gold markers were placed then the ultrasound probe was removed patient anesthetic was reversed and he was taken back to the PACU in good condition he is now going to proceed for treatment with radiation therapy and he will follow- up in my office for his next hormone therapy. Type of Anesthesia: General Admit VTE Documentation VTE Present on Admission: No VTE Mechan Device Prophylaxis: SCD's
[2020-11-15 12:00] VITALS: BP 121/75; BP 122/85; PULSE 60; RESP 16; TEMP 36.4; O2SAT 95
[2020-11-15 12:15] VITALS: BP 111/67; BP 122/85; PULSE 47; RESP 16; TEMP 36.4; O2SAT 99
[2020-11-15 12:43] VITALS: BP 118/72; BP 122/85; PULSE 52; RESP 16; TEMP 36.5; O2SAT 98
== END 2020-11-15 12:46 | disposition home or self-care (01) ==
LOC: SDC 09:39 → AC 09:39
PROVIDERS: PCP Family Medicine; Referring Provider Urology; Visit Provider Urology
PROC: (CPT 55874; principal; 2020-11-15 11:35)
DX: C61 Malignant neoplasm of prostate (principal); C77.5 Secondary and unspecified malignant neoplasm of intrapelvic lymph nodes; Z20.822 Contact with and (suspected) exposure to COVID-19; I11.0 Hypertensive heart disease with heart failure; I50.32 Chronic diastolic (congestive) heart failure; I48.92 Unspecified atrial flutter; I47.1 Supraventricular tachycardia; J45.909 Unspecified asthma, uncomplicated; K21.9 Gastro-esophageal reflux disease without esophagitis; E66.9 Obesity, unspecified; Z68.32 Body mass index [BMI] 32.0-32.9, adult; F17.220 Nicotine dependence, chewing tobacco, uncomplicated; Z79.01 Long term (current) use of anticoagulants; Z79.51 Long term (current) use of inhaled steroids; Z79.899 Other long term (current) drug therapy; Z86.16 Personal history of COVID-19; Z86.718 Personal history of other venous thrombosis and embolism; Z87.442 Personal history of urinary calculi; Z90.79 Acquired absence of other genital organ(s)
CPT/HCPCS: 00902; 55876; 87426; C9803; J7120; J2405

== ENCOUNTER → 2020-11-28 10:16 | Outpatient (CLI) | payer OTHER, SELFPAY ==
[2020-11-15 10:09] VITALS: BMI 32.5
[2020-11-28 12:04] LABS: Absolute Lymphocyte Count 0.94 X10^3/uL (0.83-4.51); Absolute Neutrophil Count 1.3 X10^3/uL (2.0-7.7); Basophil# 0.05 X10^3/uL; Basophil% 1.8 % (0-1); Eosinophil# 0.13 X10^3/uL; Eosinophils% 4.8 % (0-5); Hematocrit 45.5 % (40-54); Hemoglobin 15.5 g/dL (13.0-16.5); Lymphocyte # 0.94 X10^3/ul (0.83-4.51); Lymphocyte % 34.7 % (19-41); Mean Corp Hgb Conc 34.1 g/dL (32-36); Mean Corpuscular Hgb 30.1 pg (27.0-32.0); Mean Corpuscular Volume 88.3 fL (80-94); Mean Platelet Vol. 10.9 fl (6.2-12.0); Monocyte% 11.1 % (0-10); NRBC Flagged by Analyzer 0 % (0-5); Neutrophil # 1.28 X10^3/uL (2.7-7.7); Neutrophil % 47.2 % (47-70); Platelet Count 216 K/mm3 (150-450); RBC Distribution Width CV 12.2 % (11.6-14.6); RBC Distribution Width SD 40.3 fl (35.1-43.9); Red Blood Count 5.15 M/mm3 (4.6-6.2); White Blood Count 2.7 K/mm3 (4.4-11.0)
[2020-11-28 12:34] LABS: EST Glomerular Filtration Rate 106 mL/min (>60); Est Glom Filt Rate - Afr Amer 128 mL/min (>60); PSA,Total- Diagnostic 1.29 ng/mL (0.0-4.0)
== END ==
PROVIDERS: PCP Family Medicine; Referring Provider Radiology Radiation Oncology; Visit Provider Radiology Radiation Oncology
DX: Z01.818 Encounter for other preprocedural examination (principal); C61 Malignant neoplasm of prostate
CPT/HCPCS: 36415; 82565; 84153; 85025

== ENCOUNTER → 2020-11-29 12:50 | Outpatient (CLI) | payer OTHER, SELFPAY ==
[2020-07-25 14:14] VITALS: BMI 33.4
[2020-11-15 10:09] VITALS: BMI 32.5
--- NOTE | 2020-11-29 12:54 | CT_ITS ---
STUDY: CT PELVIS WITH CONTRAST REASON FOR EXAM: Male, 59 years old. PROSTATE CA RADIATION DOSAGE (If Supplied By Facility): CTDIvol = ( 21.16 ) mGy, DLP = ( 772.29 ) mGycm TECHNIQUE: Transaxial imaging of the pelvis was performed with oral contrast. IV 100ML ISOVUE 300 was administered intravenously. Individualized dose optimization techniques were used for this CT. COMPARISON: PET scan 10/03/2020 FINDINGS: Poorly distended urinary bladder with prominent wall thickness, either artifact or distention versus cystitis. Metallic implants in the lower pelvis likely related to prostate cancer therapy. Right lateral pelvic wall/iliac chain lymph nodes are redemonstrated (image 46 and 50 series 2) measure up to 8 x 9 mm (slightly smaller when compared to prior PET scan, 11 x 14 mm). Procedural changes of the penis. Prostate is surgically absent. Normal visualized small intestine. Normal visualized colon. There is no pelvic fluid. There is no pelvic lymphadenopathy or mass lesion. Normal visualized pelvic arteries. Very small left inguinal fat-containing hernia. A small periumbilical fat-containing hernia is also demonstrated. Normal osseous structures. CT/CT Pelvis W/CONT Therapy IMPRESSION: 1. Decreased size of right pelvic/iliac chain adenopathy, compared to prior PET scan 10/03/2020. Electronically Signed: Justin Patel MD ([place]) at 8:57 EDT , Service support ,
== END ==
PROVIDERS: PCP Family Medicine; Referring Provider Radiology Radiation Oncology; Visit Provider Radiology Radiation Oncology
DX: C61 Malignant neoplasm of prostate (principal)
CPT/HCPCS: 51600; 72193; Q9967

== ENCOUNTER → 2020-12-27 09:32 | Outpatient (CLI) | payer OTHER, SELFPAY ==
[2020-12-27 12:15] LABS: Absolute Lymphocyte Count 0.48 X10^3/uL (0.83-4.51); Absolute Neutrophil Count 1.8 X10^3/uL (2.0-7.7); Basophil# 0.02 X10^3/uL; Basophil% 0.7 % (0-1); Eosinophil# 0.28 X10^3/uL; Eosinophils% 9.5 % (0-5); Hematocrit 40.2 % (40-54); Hemoglobin 13.9 g/dL (13.0-16.5); Lymphocyte # 0.48 X10^3/ul (0.83-4.51); Lymphocyte % 16.3 % (19-41); Mean Corp Hgb Conc 34.6 g/dL (32-36); Mean Corpuscular Hgb 31.2 pg (27.0-32.0); Mean Corpuscular Volume 90.3 fL (80-94); Mean Platelet Vol. 10.3 fl (6.2-12.0); Monocyte# 0.39 X10^3/uL; Monocyte% 13.3 % (0-10); NRBC Flagged by Analyzer 0 % (0-5); Neutrophil # 1.76 X10^3/uL (2.7-7.7); Neutrophil % 59.9 % (47-70); POSITIVE DIFFERENTIAL YES; Platelet Count 161 K/mm3 (150-450); RBC Distribution Width CV 12.9 % (11.6-14.6); RBC Distribution Width SD 41.9 fl (35.1-43.9); Red Blood Count 4.45 M/mm3 (4.6-6.2); White Blood Count 2.9 K/mm3 (4.4-11.0)
[2020-12-27 12:21] LABS: Differential Indicated SCAN CRITERIA MET
[2020-12-28 13:03] LABS: Pathologist Review Reviewed
== END ==
PROVIDERS: PCP Family Medicine; Referring Provider Radiology Radiation Oncology; Visit Provider Radiology Radiation Oncology
DX: C61 Malignant neoplasm of prostate (principal)
CPT/HCPCS: 36415; 85025

== ENCOUNTER → 2021-01-18 09:24 | Outpatient (CLI) | payer OTHER, SELFPAY ==
[2021-01-18 12:20] LABS: Absolute Lymphocyte Count 0.34 X10^3/uL (0.83-4.51); Basophil# 0.02 X10^3/uL; Basophil% 0.6 % (0-1); Eosinophil# 0.27 X10^3/uL; Eosinophils% 8.8 % (0-5); Hematocrit 38.3 % (40-54); Hemoglobin 12.9 g/dL (13.0-16.5); Lymphocyte # 0.34 X10^3/ul (0.83-4.51); Mean Corp Hgb Conc 33.7 g/dL (32-36); Mean Corpuscular Hgb 31.5 pg (27.0-32.0); Mean Corpuscular Volume 93.4 fL (80-94); Mean Platelet Vol. 9.6 fl (6.2-12.0); Monocyte# 0.46 X10^3/uL; Monocyte% 14.9 % (0-10); NRBC Flagged by Analyzer 0 % (0-5); Neutrophil # 1.98 X10^3/uL (2.7-7.7); Neutrophil % 64.4 % (47-70); POSITIVE DIFFERENTIAL YES; Platelet Count 238 K/mm3 (150-450); RBC Distribution Width CV 13.7 % (11.6-14.6); RBC Distribution Width SD 46.5 fl (35.1-43.9); White Blood Count 3.1 K/mm3 (4.4-11.0)
[2021-01-18 12:25] LABS: Differential Indicated SCAN CRITERIA MET
[2021-01-18 12:54] LABS: Differential Comment SCANNED
[2021-01-19 13:21] LABS: Pathologist Review Reviewed
== END ==
PROVIDERS: PCP Family Medicine; Referring Provider Radiology Radiation Oncology; Visit Provider Radiology Radiation Oncology
DX: C61 Malignant neoplasm of prostate (principal)
CPT/HCPCS: 36415; 85025

== ENCOUNTER → 2021-04-24 08:23 | Outpatient (CLI) | payer OTHER, SELFPAY ==
[2021-04-24 09:38] LABS: PSA,Total- Diagnostic 0.16 ng/mL (0.0-4.0)
== END ==
PROVIDERS: PCP Family Medicine; Referring Provider Urology; Visit Provider Urology
DX: C61 Malignant neoplasm of prostate (principal)
CPT/HCPCS: 36415; 84153

== ENCOUNTER 2021-08-08 10:10 | Outpatient (CLI) | payer OTHER, SELFPAY ==
[2021-08-08 11:11] LABS: PSA,Total- Diagnostic 0.34 ng/mL (0.0-4.0)
== END 2021-08-08 23:59 | disposition home or self-care (01) ==
LOC: LAB 10:11
PROVIDERS: PCP Family Medicine; Visit Provider Urology
DX: C61 Malignant neoplasm of prostate (principal)
CPT/HCPCS: 36415; 84153

== ENCOUNTER → 2021-08-22 | Outpatient (CLI) | payer OTHER, SELFPAY ==
--- NOTE | 2021-08-22 14:30 | PET_ITS ---
STUDY: WHOLE-BODY PET/CT SCAN REASON FOR EXAM: Male, 60 years old. MALIGNANT NEOPLASM OF PROSTATE RADIATION DOSAGE (If Supplied By Facility): CTDIvol = ( 7.16 ) mGy, DLP = ( 761.09 ) mGycm. Individualized dose optimization techniques were used for this CT.? TECHNIQUE: Patient was injected with F-18 FDG for whole body multiplanar PET study performed along with a noncontrasted CT scan COMPARISON: 10/03/2020 FINDINGS: Current study shows no persistent abnormal PET activity. There is normal physiologic activity noted within the brain, salivary glands, heart, liver, spleen, GI and systems. The noncontrasted CT scan shows no abnormality in the visualized brain parenchyma. There is no suspicious bulky adenopathy within the neck. There is a normal thyroid gland. Lung harvey are clear without evidence of organized infiltrate or suspicious noncalcified mass or nodule. No suspicious adenopathy noted. There is no suspicious solid organ abnormality no suspicious mesenteric or retroperitoneal lymph nodes. There are brachytherapy beads noted within the prostatectomy bed PET/PET/CT Tumor Base -Thigh Subs IMPRESSION: Negative study, no suspicious increased activity identified. Electronically Signed: Jerrod George MD at 13:24 EDT ,
== END | disposition home or self-care (01) ==
LOC: ONC 14:12
PROVIDERS: PCP Family Medicine; Referring Provider Urology; Visit Provider Urology
DX: C61 Malignant neoplasm of prostate (principal); Z85.46 Personal history of malignant neoplasm of prostate
CPT/HCPCS: 78814; 78815; A9595

== ENCOUNTER → 2021-11-09 | Outpatient (CLI) | payer OTHER, SELFPAY ==
[2021-11-09 08:00] LABS: PSA,Total- Diagnostic 0.29 ng/mL (0.0-4.0)
== END | disposition home or self-care (01) ==
PROVIDERS: Referring Provider Urology; Visit Provider Urology
DX: R97.20 Elevated prostate specific antigen [PSA] (principal)
CPT/HCPCS: 36415; 84153

== ENCOUNTER → 2022-02-12 | Outpatient (CLI) | payer OTHER, SELFPAY ==
[2022-02-12 11:09] LABS: PSA,Total- Diagnostic 0.39 ng/mL (0.0-4.0)
== END | disposition home or self-care (01) ==
LOC: LAB 09:49
PROVIDERS: Visit Provider Urology
DX: C61 Malignant neoplasm of prostate (principal)
CPT/HCPCS: 36415; 84153

== ENCOUNTER → 2022-05-24 | Outpatient (CLI) | payer BC, SELFPAY ==
[2022-05-24 12:21] LABS: PSA,Total- Diagnostic 1.86 ng/mL (0.0-4.0)
== END | disposition home or self-care (01) ==
PROVIDERS: Referring Provider Urology; Visit Provider Urology
DX: C61 Malignant neoplasm of prostate (principal)
CPT/HCPCS: 36415; 84153

== ENCOUNTER → 2022-06-18 | Outpatient (CLI) | payer BC, SELFPAY ==
--- NOTE | 2022-06-18 12:49 | ECHOD_ITS ---
Reason For Study: AFIB-FLUTTER Procedure This was a 2D Doppler, Color Flow transthoracic echocardiogram. Exam performed in department. Left Ventricle Normal LV size. Left ventricular systolic function is normal. No regional wall motion abnormalities noted. Right Ventricle Normal RV size. Normal systolic function. Atria Normal left atrium. Normal right atrium. Mitral Valve Bileaflet diffuse mitral valve thickening. Tricuspid Valve Normal tricuspid valve. Mild (1+) eccentric tricuspid valve insufficiency. Pulmonary artery systolic pressure is 30 mmHg. Aortic Valve Trisinus/trileaflet aortic valve. Moderate focal aortic valve thickening. Peak aortic valve gradient 34 mmHg. Mean aortic valve gradient 20 mmHg. Trivial aortic valve insufficiency. Pulmonic Valve Normal pulmonic valve. Mild (1+) pulmonic valve insufficiency. Great Vessels Normal aortic root. The pulmonary artery is normal size. Normal inferior vena cava. Pericardium/Pleural No pericardial effusion. MMode/2D Measurements & Calculations LVIDd: 5.0 cm IVSd: 0.98 cm LVOT diam: 2.0 cm LVIDs: 3.4 cm LVPWd: 0.87 cm LVOT area: 3.2 cm2 RVDd: 3.4 cm FS: 33.5 % Ao root diam: 3.6 cm LAV(MOD-bp): 54.5 ml LVAd ap4: 44.7 cm2 LAV(MOD-bp) Indexed: 23.7 ml/m2 LVLd ap4: 9.3 cm LAV(MOD-sp2): 52.6 ml EDV(MOD-sp4): 167.8 ml LAV(MOD-sp4): 53.9 ml EDV(sp4-el): 182.0 ml LVAs ap4: 21.9 cm2 LVLs ap4: 7.9 cm ESV(MOD-sp4): 52.4 ml ESV(sp4-el): 51.6 ml EF(MOD-sp4): 68.8 % EF(sp4-el): 71.6 % SV(MOD-sp4): 115.4 ml SV(sp4-el): 130.4 ml LA A4 area: 20.3 cm2 LA dimension(2D): 4.0 cm RA A4 area: 18.1 cm2 Time Measurements MV dec time: 0.21 sec Doppler Measurements & Calculations MV E max herberth: 85.0 cm/sec Lat Peak E' Herberth: 11.3 cm/sec Med Peak E' Herberth: 10.9 cm/sec MV A max herberth: 93.4 cm/sec E/E' lat: 7.5 E/E' med: 7.8 MV E/A: 0.91 Ao V2 max: 291.4 cm/sec AI max herberth: 464.4 cm/sec LV V1 max: 164.7 cm/sec Ao max P.0 mmHg AI max P.3 mmHg LV V1 max P.8 mmHg Ao V2 mean: 206.6 cm/sec LV V1 mean P.8 mmHg Ao mean P.6 mmHg AI dec slope: 241.0 cm/sec2 LV V1 mean: 111.7 cm/sec Ao V2 VTI: 68.1 cm AI P1/2t: 564.4 msec LV V1 VTI: 41.7 cm AV (velocity ratio): 0.61 RICARDO(I,D): 2.0 cm2 RICARDO(V,D): 1.8 cm2 SV(LVOT): 133.6 ml PA V2 max: 101.8 cm/sec PI end-d herberth: 95.8 cm/sec TR max herberth: 258.5 cm/sec TR max P.7 mmHg ECHO/Echo Complete Interpretation Summary Normal LV size. Left ventricular systolic function is normal. Bileaflet diffuse mitral valve thickening. Mean aortic valve gradient 20 mmHg. Trivial aortic valve insufficiency. Moderate focal aortic valve thickening. Ordering Physician: Juan M Diaz Performed By: Ella Richard RDCS
== END | disposition home or self-care (01) ==
PROVIDERS: Visit Provider Internal Medicine Cardiovascular Disease
DX: I48.92 Unspecified atrial flutter (principal)
CPT/HCPCS: 93306

== ENCOUNTER → 2022-08-28 | Outpatient (CLI) | payer BC, SELFPAY ==
[2022-08-28 08:34] LABS: PSA,Total- Diagnostic 0.18 ng/mL (0.0-4.0)
== END | disposition home or self-care (01) ==
LOC: LAB 07:20
PROVIDERS: Referring Provider Urology; Visit Provider Urology
DX: C61 Malignant neoplasm of prostate (principal)
CPT/HCPCS: 36415; 84153

== ENCOUNTER → 2022-12-05 | Outpatient (CLI) | payer BC, SELFPAY ==
[2022-12-05 16:50] LABS: PSA,Total- Diagnostic 0.41 ng/mL (0.0-4.0)
== END | disposition home or self-care (01) ==
LOC: LAB 15:39
PROVIDERS: Referring Provider Urology; Visit Provider Urology
DX: C61 Malignant neoplasm of prostate (principal)
CPT/HCPCS: 36415; 84153

== ENCOUNTER → 2023-03-06 | Outpatient (CLI) | payer BC, SELFPAY ==
[2023-03-06 13:56] LABS: PSA,Total- Diagnostic 1.35 ng/mL (0.0-4.0)
== END | disposition home or self-care (01) ==
LOC: LAB 13:01
PROVIDERS: Referring Provider Urology; Visit Provider Urology
DX: C61 Malignant neoplasm of prostate (principal)
CPT/HCPCS: 36415; 84153

== ENCOUNTER → 2023-03-27 | Outpatient (CLI) | payer BC, SELFPAY ==
--- NOTE | 2023-03-27 07:22 | NM_ITS ---
CLINICAL: 59-year-old male with history of primary prostate carcinoma. WHOLE BODY 99m Tc MDP RADIONUCLIDE BONE SCINTIGRAPHY COMPARISON: Previous whole body bone scintigraphy study dated 05/24/2020 FINDINGS: Following the intravenous administration of 27.1 mCi of 99m Tc MDP, whole body bone images reveal: 1. Enhanced tracer uptake is noted in the fourth lumbar vertebra posteriorly on the right in the apparent distribution of the transverse process. 2. Increased radiopharmaceutical concentration is demonstrated in the acromioclavicular and sternoclavicular compartments of both shoulders, the medial tibial compartments of both knees, the bilateral midfoot, several thoracic vertebra. 3. The remaining skeletal structures are scintigraphically unremarkable with normal-appearing renal images and urinary bladder activity identified. NM/Bone Scan Whole Body IMPRESSION: 1. The increase in radiopharmaceutical defined in the fourth lumbar vertebra is most consistent with skeletal metastatic disease. Plain film radiography correlation is recommended. 2. Degenerative arthritis is defined in the bilateral shoulders, right and left knees, the midfoot bilaterally and the thoracic spine. 3. Overall compared to the previous whole body bone scintigraphy study dated 05/24/2020, there is apparent interim development of limited skeletal metastatic disease. Electronically Signed: Tod Menezes DO at 22:26 EST ,
== END | disposition home or self-care (01) ==
LOC: NM 07:22
PROVIDERS: Referring Provider Internal Medicine Hematology & Oncology; Visit Provider Internal Medicine Hematology & Oncology
DX: C61 Malignant neoplasm of prostate (principal); C79.51 Secondary malignant neoplasm of bone; C77.9 Secondary and unspecified malignant neoplasm of lymph node, unspecified
CPT/HCPCS: 78306; A9503

== ENCOUNTER → 2023-03-28 | Outpatient (CLI) | payer BC, SELFPAY ==
--- NOTE | 2023-03-28 14:00 | CT_ITS ---
STUDY: CT CHEST, ABDOMEN T PELVIS WITH CONTRAST REASON FOR EXAM: Male, 62 years old. METS PROSTATE CANCER RADIATION DOSAGE (If Supplied By Facility): CTDIvol = ( 22.02 ) mGy, DLP = ( 2296.62 ) mGycm TECHNIQUE: Transaxial imaging was performed following intravenous administration of IV 100mL [id number]. Individualized dose optimization techniques were used for this CT. COMPARISON: No relevant priors. FINDINGS: CHEST Small benign-appearing bilateral axillary lymph nodes. The lungs are normal. There is no demonstrated pleural abnormality. There are calcifications of the coronary arteries. There are small lymph nodes within the mediastinum, which are normal in size and morphology most compatible with reactive lymph hyperplasia. Normal hilar regions. Normal unenhanced pulmonary arteries. Normal aorta arch and descending thoracic aorta. There are multi-level degenerative changes of the thoracic spine. Heterogeneous appearance of lower thoracic vertebrae. Metastatic deposit should be ruled out. There is a 1.9 cm cyst in the anterior aspect of the right lobe of the liver. ABDOMEN 1.1 cm cyst in the anterior aspect of the right lobe of the liver. Scattered tiny cysts throughout both lobes. Normal gallbladder and extrahepatic biliary system. Normal spleen. Normal pancreas. Normal bilateral adrenal glands. Normal right kidney. Normal left kidney. Normal visualized stomach. Normal small intestine. Normal colon. The appendix is visualized and appears normal. There is scattered atherosclerotic calcification of the abdominal aorta, without a demonstrated aneurysm. Normal inferior vena cava. Normal retroperitoneum. Small lymph nodes are seen in the root of the mesentery. Normal abdominal wall. There are diffuse degenerative changes of the visualized lumbar spine. Heterogeneous appearance of the lumbar vertebrae suggestive of metastatic deposits. PELVIS There is no pelvic fluid. There is no pelvic lymphadenopathy or mass lesion. Normal visualized pelvic arteries. Small bilateral inguinal hernias containing fat. Small umbilical hernia containing fat. CT/CT Chest, Abd, Pel w/Contrast IMPRESSION: Small hepatic cysts. Heterogeneous appearance of the lumbar vertebrae suggestive of possible metastasis. The patient is status post prostatectomy. Electronically Signed: Amaury Velasco MD at 15:23 EST ,
== END | disposition home or self-care (01) ==
LOC: CT 13:57
PROVIDERS: Referring Provider Internal Medicine Hematology & Oncology; Visit Provider Internal Medicine Hematology & Oncology
DX: C61 Malignant neoplasm of prostate (principal); C79.51 Secondary malignant neoplasm of bone; C77.9 Secondary and unspecified malignant neoplasm of lymph node, unspecified
CPT/HCPCS: 71260; 74177; Q9967

== ENCOUNTER → 2023-06-12 | Outpatient (CLI) | payer BC, SELFPAY ==
[2023-06-12 10:19] LABS: Absolute Lymphocyte Count 0.84 X10^3/uL (0.83-4.51); Absolute Neutrophil Count 1.5 X10^3/uL (2.0-7.7); Basophil# 0.02 X10^3/uL; Basophil% 0.7 % (0-1); Eosinophil# 0.11 X10^3/uL; Hematocrit 40.8 % (40-54); Hemoglobin 13.9 g/dL (13.0-16.5); Lymphocyte # 0.84 X10^3/ul (0.83-4.51); Lymphocyte % 30.4 % (19-41); Mean Corp Hgb Conc 34.1 g/dL (32-36); Mean Corpuscular Volume 91.1 fL (80-94); Mean Platelet Vol. 9.7 fl (6.2-12.0); Monocyte# 0.31 X10^3/uL; Monocyte% 11.2 % (0-10); NRBC Flagged by Analyzer 0 % (0-5); Neutrophil # 1.48 X10^3/uL (2.7-7.7); Neutrophil % 53.7 % (47-70); Platelet Count 211 K/mm3 (150-450); RBC Distribution Width CV 12.4 % (11.6-14.6); RBC Distribution Width SD 40.9 fl (35.1-43.9); Red Blood Count 4.48 M/mm3 (4.6-6.2); White Blood Count 2.8 K/mm3 (4.4-11.0)
[2023-06-12 10:41] LABS: BNP,B-Type NATRIURETIC PEPTIDE 56.7 pg/mL (0-100)
[2023-06-12 10:54] LABS: ALB/GLOB Ratio 1.1 RATIO (0.9-2.4); AST(SGOT) 17 U/L (15-37); Alanine Aminotransfer ALT/SGPT 28 U/L (16-61); Albumin, Serum 3.5 g/dL (3.2-5.0); Alkaline Phosphatase 77 U/L (45-117); Anion Gap 1 (5-15); BUN 15 mg/dL (7-18); BUN/Creat Ratio 17.3 RATIO (10-20); Calcium,Total 9.6 mg/dL (8.5-10.1); Chloride 109 mmol/L (98-107); Creatinine, Serum 0.87 mg/dL (0.70-1.30); EST Glomerular Filtration Rate 95 mL/min (>60); Est Glom Filt Rate - Afr Amer 115 mL/min (>60); Globulin 3.3 g/dL (2.2-4.2); Glucose 79 mg/dL (74-106); Protein, Total 6.8 g/dL (6.4-8.2); Sodium Level 142 mmol/L (136-145)
[2023-06-12 11:08] LABS: PSA,Total- Diagnostic 3.22 ng/mL (0.0-4.0)
== END | disposition home or self-care (01) ==
LOC: LAB 09:31
PROVIDERS: Internal Medicine Hematology & Oncology; Referring Provider Nurse Practitioner Family; Visit Provider Nurse Practitioner Family
DX: R06.09 Other forms of dyspnea (principal); C79.51 Secondary malignant neoplasm of bone; C77.9 Secondary and unspecified malignant neoplasm of lymph node, unspecified; I50.33 Acute on chronic diastolic (congestive) heart failure; I48.92 Unspecified atrial flutter; C61 Malignant neoplasm of prostate
CPT/HCPCS: 36415; 80053; 83880; 84153; 85025

== ENCOUNTER → 2023-06-24 | Outpatient (CLI) | payer BC, SELFPAY ==
--- NOTE | 2023-06-24 07:53 | NM_ITS ---
CLINICAL: 62-year-old male with history of primary prostate carcinoma. WHOLE BODY 99m Tc MDP RADIONUCLIDE BONE SCINTIGRAPHY COMPARISON: Previous whole body bone scintigraphy study dated 03/27/2023 FINDINGS: Following the intravenous administration of 27.1 mCi of 99m Tc MDP, whole body bone images reveal: 1. Persistent increased radiotracer is defined in the fourth lumbar vertebra involving the transverse process to the right of midline, the left anterior acetabulum, the left sacroiliac joint. 2. Facilitated uptake is noted in the acromioclavicular compartment of both shoulders, the bilateral wrists, the left hand, the right-left ankle and midfoot, knee articulations bilaterally. 3. The remaining skeletal structures are scintigraphically unremarkable with normal-appearing renal images and urinary bladder activity identified. NM/Bone Scan Whole Body IMPRESSION: 1. The increase in tracer uptake redefined and newly apparent in the fourth lumbar vertebra and left acetabulum and left sacroiliac joint are consistent with isolated osteoblastic turnover attributed to the patient''s known diagnosis of primary prostate carcinoma. 2. Degenerative arthritis is defined in the bilateral shoulder and wrist articulations, the left hand, the ankles and midfoot bilaterally, both knees. Electronically Signed: Tdo Menezes DO at 23:33 EST ,
--- OUTSIDE RECORDS SUMMARY | 2023-06-24 07:55 | XMS RPT_ITS | CCD ---
Author Name Unknown Address [address] [place] [address] Organization [facility] Care Team Providers Care Library Page Name Role Phone ROSA ELENA MUNIZ, MANGO Stallworth Primary Care Physician [phone] Tristan Borrero DO Unavailable Nahid MUNIZ, PhD, Sukumar Unavailable Mango Khan MD Primary Care Provider Porter YEH, Sanna Unavailable Unavailable SUKUMAR WHITFIELD Attending Unavailable SHAY CALVERT Referring Unavailable NAUMOFF, MANGO Primary Care Unavailable SUKUMAR WHITFIELD Attending Unavailable AARON WHITFIELD-RAGHAV Referring Unavailable NAUMLEELA, MANGO Primary Care Unavailable SUKUMAR WHITFIELD Attending Unavailable SELF, SELF Referring Unavailable NAUMLEELA, MANGO Primary Care Unavailable AARON WHITFIELD-RAGHAV Referring Unavailable SUKUMAR WHITFIELD Attending Unavailable NAUMLEELA, MANGO Primary Care Unavailable SUKUMAR WHITFIELD Referring Unavailable NAUMOFF, MANGO Primary Care Unavailable SUKUMAR WHITFIELD Attending Unavailable NAUMLEELA, MANGO Primary Care Unavailable SELF, SELF Referring Unavailable SUKUMAR WHITFIELD Attending Unavailable NAUMOFF, MANGO Primary Care Unavailable SELF, SELF Referring Unavailable SUKUMAR WHITFIELD Attending Unavailable AARON WHITFIELD-RENETTAI Referring Unavailable NAUMOFF, MANGO Primary Care Unavailable AARON WHITFIELD-RAGHAV Attending Unavailable AARON WHIFTIELD-RAGHAV Attending Unavailable SALVADOR WHITFIELDG-RENETTAI Referring Unavailable NAUMOFF, MANGO Primary Care Unavailable SUKUMAR WHITFIELD Attending Unavailable SUKUMAR WHITFIELD Referring Unavailable NAUMOFF, MANGO Primary Care Unavailable DARRIAN CROCKETT DO Primary Care Physician DARRIAN CROCKETT DO Attending Unavailable DARRIAN CROCKETT DO Primary Care Unavailable GIVEN LETTER SORTING MACHINE OPERATOR-ROAD BUILDER, [facility] Attending Wilson KHAN MD, MANGO Stallworth Primary Care Unavailable Allergies Allergy Classification Reported Allergen(s) Allergy Type Date of Onset Reaction(s) Facility (6 sources) Ciprofloxacin; Translations: [ciprofloxacin] Drug Allergy 09-19-2021 couldn't walk, hurt feet. [facility] Medications Current Medications Medication Drug Class(es) Dates Sig (Normalized) Sig (Original) acetaminophen 325 mg / caffeine 65 mg oral tablet (2 sources) Central Nervous System Stimulant, Methylxanthine Start: 12-26-2021 take 1 tablet by mouth every six hours Excedrin Mild Headache 325 mg-65 mg oral tablet Dose = 2 tab(s), Oral, q6h, 0 Refill(s) Start Date: 12/26/21 Status: Ordered Albuterol (4 sources) beta2-Adrenergic Agonist ALBUTEROL IN Inhale as needed. 0 Active albuterol MDI (90 mcg/inh) CFC free inhalation aerosol (3 sources) Start: 11-12-2018 take 2 puff(s) by inhalation four times daily as needed for wheezing albuterol MDI (90 mcg/inh) CFC free inhalation aerosol 2 puff(s), Inhalation, QID, PRN for wheezing, 0 Refill(s) Start Date: 11/12/18 Status: Ordered enzalutamide 40 mg oral tablet (1 source) Androgen Receptor Inhibitor Start: 01-21-2023 Xtandi 40 mg oral tablet Dose : 160 mg = 4 tab(s), Oral, qDay, do not chew or break tablets, # 90 tab(s), 0 Refill(s) Start Date: 01/21/23 Status: Ordered flecainide acetate 100 mg oral tablet (7 sources) Antiarrhythmic Start: 11-12-2018 flecainide 100 mg oral tablet Dose : 100 mg = 1 tab(s), Oral, q12h, # 180 tab(s), 0 Refill(s) Start Date: 11/12/18 Status: Ordered 60 actuat fluticasone propionate 0.1 mg/actuat / salmeterol 0.05 mg/actuat dry powder inhaler (7 sources) Corticosteroid, beta2-Adrenergic Agonist Start: 08-29-2021 Advair Diskus 100-50 MCG/ACT Aerosol Powder, breath activated inhaler Problems Active Problems Problem Classification Problem Date Documented Date Episodic/Chronic Abdominal pain (2 sources) Abdominal pain; Translations: [Unspecified abdominal pain] Episodic Asthma (2 sources) Asthma; Translations: [Mild persistent asthma] 05-14-2021 Chronic Cancer of prostate (9 sources) Malignant tumor of prostate; Translations: [Malignant neoplasm of prostate] Onset: 2 Chronic Cardiac dysrhythmias (3 sources) Atrial flutter; Translations: [Unspecified atrial flutter] Onset: 3 01-21-2023 Chronic Coagulation and hemorrhagic disorders (3 sources) Hypercoagulability state; Translations: [Other thrombophilia] Onset: 3 01-21-2023 Chronic Other aftercare (1 source) Long-term current use of anticoagulant 01-21-2023 Episodic Other ear and sense organ disorders (1 source) Hearing loss 01-21-2023 Chronic Residual codes; unclassified (1 source) Requires a tetanus booster 01-21-2023 Episodic Residual codes; unclassified (1 source) Requires varicella vaccination 01-21-2023 Episodic Past or Other Problems Problem Classification Problem Date Documented Da te Episodic/Chronic Mood disorders (1 source) Mood disorders Onset: 10-12-2021 10-12-2021 Results Test Name Value Interpretation Reference Range Facil ity Vital Signs Date Time Vital Sign Value Performing Clinician Faci lity 09-19-2021 [id number] Body temperature 98.4 [degF] Sukumar Whitfield MD, PhD Work Phone: [facility] 09-19-2021 13:17-040 Body weight 111.72 kg Sukumar Whitfield MD, PhD Work Phone: [facility] 09-19-2021 13:17-040 Diastolic blood pressure 71 mm[Hg] Sukumar Whitfield MD, PhD Work Phone: [facility] 09-19-2021 13:17-040 Heart rate 63 /min Sukumar Whitfield MD, PhD Work Phone: [facility] 09-19-2021 13:17-0400 Respiratory rate 18 /min Sukumar Whitfield MD, PhD Work Phone: [facility] 09-19-2021 13:17-0400 SaO2% (BldA) [Mass fraction] 96 % Sukumar Whitfield MD, PhD Work Phone: [facility] 09-19-2021 13:17-0400 Systolic blood pressure 128 mm[Hg] Sukumar Whitfield MD, PhD Work Phone: [facility] Encounters Encounter Date Encounter Type Care Provider Facility Start: 01-21-2023 End: 01-26-2023 ambulatory DARRIAN CROCKETT DO Facility:[facility] Start: 01-21-2023 End: 01-26-2023 Encounter for general adult medical examination without abnormal findings DARRIAN CROCKETT DO Facility:[facility] Start: 01-21-2023 End: 01-25-2023 Outreach Lab DARRIAN CROCKETT DO [facility] Start: 03-08-2022 End: 03-09-2022 [facility] LETTER SORTING MACHINE OPERATOR-ROAD BUILDER Facility:[facility] Start: 03-08-2022 End: 03-08-2022 Patient encounter procedure [facility] LETTER SORTING MACHINE OPERATOR-ROAD BUILDER [facility] Start: 10-12-2021 ambulatory SUKUMAR WHITFIELD Facility :[facility] Start: 10-12-2021 End: 10-12-2021 Subsequent hospital visit by physician Sukumar Whitfield MD, PhD Work Phone: Department of Radiation Oncology Start: 10-10-2021 ambulatory SUKUMAR WHITFIELD Facility :[facility] Start: 10-08-2021 ambulatory SUKUMAR WHITFIELD Facility :[facility] Start: 10-05-2021 ambulatory SUKUMAR WHITFIELD Facility :[facility] Start: 10-03-2021 ambulatory MANGO KHAN Facility :[facility] Start: 09-28-2021 ambulatory MANGO KHAN Facility :[facility] Start: 09-20-2021 ambulatory SUKUMAR WHITFIELD Facility :[facility] Start: 09-20-2021 End: 09-20-2021 Clinical Support Encounter Sukumar Whitfield MD, PhD Work Phone: Department of Radiation Oncology Procedures Date Procedure Procedure Detail Performing Clinician Start: 10-12-2021 GENERAL PROCEDURE Aaron Whitfield MD, PhD Work Phone: Start: 07-05-2020 Prostatic structure (body structure) KRUNAL GIVEN LETTER SORTING MACHINE OPERATOR-ROAD BUILDER Plan of Treatment Date Care Activity Detail Author Start: 12-27-2021 Influenza vaccination INFLUENZA VACCINE (Season Ended) [facility] Start: 10-12-2021 End: 10-12-2021 Patient encounter procedure Department of Radiation Oncology Start: 10-10-2021 End: 10-10-2021 Patient encounter procedure 10/10/2021 Appointment Radiation Oncology Sukumar Whitfield MD, PhD [address] [place] [id number] Department of Radiation Oncology Start: 10-08-2021 End: 10-08-2021 Patient encounter procedure 10/08/2021 Appointment Radiation Oncology Sukumar Whitfield MD, PhD [address] [place] [address] Department of Radiation Oncology Start: 10-05-2021 End: 10-05-2021 Patient encounter procedure 10/05/2021 Appointment Radiation Oncology Sukumar Whitfield MD, PhD [address] [place] [address] Department of Radiation Oncology Start: 10-03-2021 End: 10-03-2021 Patient encounter procedure 10/03/2021 Appointment Radiation Oncology Sukumar Whitfield MD, PhD [address] [place] [address] Department of Radiation Oncology Start: 2012 Prostate specific antigen measurement PROSTATE CANCER SCREENING DISCUSSION [facility] Start: 2012 Zoster vaccine hzv live for subcutaneous use ZOSTER (SHINGLES) VACCINE (1 of 2) [facility] Start: 12-02-2007 Colonoscopy COLORECTAL CANCER SCREENING DISCUSSION [facility] Start: 2002 Fasting lipid profile LIPID SCREENING [facility] Start: 1981 Third diphtheria, tetanus and acellular pertussis (DTaP) vaccination TDAP (ADULT) [facility] Start: 1980 Tetanus vaccination TETANUS [facility] Start: 1977 HIV screening HIV SCREENING DISCUSSION [facility] Start: 1968 PNEUMOCOCCAL VACCINE SERIES (1 - PCV) PNEUMOCOCCAL VACCINE SERIES (1 - PCV) [facility] Start: 12-02-1967 COVID-19 VACCINE (#1) COVID-19 VACCINE (#1) [facility] Start: 1962 Hepatitis C antibody, confirmatory test HEPATITIS C VIRUS SCREENING [facility] RAD ONC SIMULATION RAD ONC SIMULATION Imaging Routine Prostate cancer 09/20/2021 1:06 PM EDT [facility] Immunizations Immunization Date Immunization Notes Care Provider Fa cility 01-21-2023 tetanus toxoid, redu maxim diphtheria toxoid, and acellular pertussis vaccine, adsorbed; Translations: [Boostrix (Tdap)] DARRIAN CROCKETT DO [facility] 05-02-2017 pneumococcal polysaccharide vaccine, 23 valent [facility] LETTER SORTING MACHINE OPERATOR-ROAD BUILDER [facility] Payers Date Payer Category Payer Unknown [id number] 2020 Unknown [employer] [place] [id number] 2020-Present [address] [place] [address] [id number] 2020 Unknown [id number] 1962 Unknown [id number] 1962 Unknown [id number] 1962 Unknown [id number] 1962 Unknown [id number] 1962 Unknown [id number] 1962 Unknown [id number] 1962 Unknown [id number] 1962 Unknown [id number] 1962 Unknown [id number] 1962 Unknown [id number] 1962 Unknown [id number] 1962 Unknown [id number] Social History Date Type Detail Facility Tobacco Nicotine Use: ew . Exposure to Tobacco Smoke Lives with someone who smokes. Type: Oral (Snuff, Chew). [facility] Clinical Notes 09-19-2021 to 10-12-2021 Sukumar Whitfield MD, PhD - 10/12/2021 9:00 AM EDTSPaula Whitfield MD, PhD - 10/12/2021 9:00 AM EDTPatient Hallie Steiner, RUBA - 09/20/2021 1:00 PM Irlanda CashRUBA salguero - 09/19/2021 1:00 PM EDT Note Date & Type Note Facility 10-12-2021 Procedure note Associated Ord er(s): GENERAL PROCEDURE PROCEDURE NOTE FRACTIONATED STEREOTACTIC RADIOTHERAPY RADIATION ONCOLOGIST: Sukumar Whitfield MD, PhD PREOPERATIVE DIAGNOSIS: Prostate cancer recurrence in pelvis POSTOPERATIVE DIAGNOSIS: Same DATE OF SERVICE: 10/12/2021 1. TARGET: Presacral pelvic LN PROCEDURE PERFORMED: Linac-based Fractionated Sterotactic Radiotherapy FRACTION #: 5 RADIATION DOSE GIVEN: 600 cGy CUMULATIVE DOSE: 3000 cGy in 5 fractions PLANNED TOTAL DOSE: 3000 cGy in 5 fractions (SIB to 4000 cGy to GTV) CONSENT: Informed consent was obtained prior to the procedure. Procedure risks, benefits, alternatives and expected outcomes were discussed with the patient. Consent(s) were scanned into the electronic medical record. UNIVERSAL PROTOCOL/ TIMEOUT: Preprocedure verification is complete patient verified and consents confirmed, procedure sites are identified and marked, timeout was called before the start of the procedure. INDICATIONS FOR PROCEDURE: 60 y.o. gentleman with a diagnosis of very high risk prostate adenocarcinoma (pT3bN0, PSA 14.03, Elim 5+5=10) status post radical prostatectomy on 07/06/20, post-op PSA persistently elevated at 7.97 on 08/29/20, fluciclovine PET on 10/03/20 revealed PET-avid disease in prostate bed and pelvis s/p salvage RT to prostate bed and pelvis (70.2 Gy to bed and 45 Gy to pelvis) completed on 01/31/21 with still ongoing ADT, post-salvage PSA of 0.16 on 04/14/21 but rising to 0.34 on 08/08/21, with PSMA-PET on 08/22/21 revealed several retroperitoneal PET-avid nodes, as well as a presacral LN that was in the prior salvage radiation field. He will be undergoing RP dustin irradiation with Dr. Borrero at [place], with plan to receive 20 fractions delivering 40 Gy to the elective dustin region with 55 Gy boost to the gross nodes. He is receiving SBRT to the persistent presacral LN disease that is located within the prior salvage radiation field. PROCEDURE DETAILS: CT for treatment planning was previously obtained. The images were transferred to the treatment planning computer. The target and adjacent normal structures were outlined. A radiation treatment plan was developed to maximize coverage and minimize dose to adjacent tissues. farmworker cranberry checks were performed on the plan. The patient was immobilized utilizing the [employer] stereotactic body frame. Cone beam CT centered at the isocenter was taken and very minor shifts were made after approval by id. The patient received treatment with 10 FFF MV photons, using a volumetric modulated arc therapy (VMAT) radiation plan delivering the prescribed dose to the presacral LN. After the treatment was completed, the patient was removed from the stereotactic body frame. CONDITION: The patient tolerated the procedure well and was in stable condition. COMPLICATIONS: None PLAN: Linac-based Fractionated Stereotactic Radiotherapy completed as planned. He will follow up with our clinic in approximately 4-8 weeks. Sukumar Whitfield MD, PhD Dry Wall Installations Mechanic Department of Radiation Oncology [facility] Work Phone: 10-12-2021 Procedure note Associated Ord er(s): GENERAL PROCEDURE PROCEDURE NOTE FRACTIONATED STEREOTACTIC RADIOTHERAPY RADIATION ONCOLOGIST: Sukumar Whitfield MD, PhD PREOPERATIVE DIAGNOSIS: Prostate cancer recurrence in pelvis POSTOPERATIVE DIAGNOSIS: Same DATE OF SERVICE: 10/12/2021 1. TARGET: Presacral pelvic LN PROCEDURE PERFORMED: Linac-based Fractionated Sterotactic Radiotherapy FRACTION #: 5 RADIATION DOSE GIVEN: 600 cGy CUMULATIVE DOSE: 3000 cGy in 5 fractions PLANNED TOTAL DOSE: 3000 cGy in 5 fractions (SIB to 4000 cGy to GTV) CONSENT: Informed consent was obtained prior to the procedure. Procedure risks, benefits, alternatives and expected outcomes were discussed with the patient. Consent(s) were scanned into the electronic medical record. UNIVERSAL PROTOCOL/ TIMEOUT: Preprocedure verification is complete patient verified and consents confirmed, procedure sites are identified and marked, timeout was called before the start of the procedure. INDICATIONS FOR PROCEDURE: 60 y.o. gentleman with a diagnosis of very high risk prostate adenocarcinoma (pT3bN0, PSA 14.03, Chuck 5+5=10) status post radical prostatectomy on 07/06/20, post-op PSA persistently elevated at 7.97 on 08/29/20, fluciclovine PET on 10/03/20 revealed PET-avid disease in prostate bed and pelvis s/p salvage RT to prostate bed and pelvis (70.2 Gy to bed and 45 Gy to pelvis) completed on 01/31/21 with still ongoing ADT, post-salvage PSA of 0.16 on 04/14/21 but rising to 0.34 on 08/08/21, with PSMA-PET on 08/22/21 revealed several retroperitoneal PET-avid nodes, as well as a presacral LN that was in the prior salvage radiation field. He will be undergoing RP dustin irradiation with Dr. Borrero at [place], with plan to receive 20 fractions delivering 40 Gy to the elective dustin region with 55 Gy boost to the gross nodes. He is receiving SBRT to the persistent presacral LN disease that is located within the prior salvage radiation field. PROCEDURE DETAILS: CT for treatment planning was previously obtained. The images were transferred to the treatment planning computer. The target and adjacent normal structures were outlined. A radiation treatment plan was developed to maximize coverage and minimize dose to adjacent tissues. farmworker cranberry checks were performed on the plan. The patient was immobilized utilizing the [employer] stereotactic body frame. Cone beam CT centered at the isocenter was taken and very minor shifts were made after approval by me. The patient received treatment with 10 FFF MV photons, using a volumetric modulated arc therapy (VMAT) radiation plan delivering the prescribed dose to the presacral LN. After the treatment was completed, the patient was removed from the stereotactic body frame. CONDITION: The patient tolerated the procedure well and was in stable condition. COMPLICATIONS: None PLAN: Linac-based Fractionated Stereotactic Radiotherapy completed as planned. He will follow up with our clinic in approximately 4-8 weeks. Sukumar Whitfield MD, PhD Dry Wall Installations Mechanic Department of Radiation Oncology [facility] documented in this encounter [facility] 09-20-2021 Instructions Maryjane Steiner RN - 09/20/2021 1:[address] Simulation Instructions You had a CT scan today. If you had IV contrast for your CT, make sure you drink 2-3 extra glasses of water this evening to help your kidneys flush the contrast from your blood. Your CT scan will help your doctor, the dosimetrists, and the physicists plan for your radiation treatment. This planning normally takes about 7-10 days, after which you will start treatment. You may start treatment earlier than this in some cases. You will leave today with a full schedule of all of your radiation appointments. If there is a time of day that works best for you for treatment, let your radiation therapist know during your CT so they can try to accommodate your schedule. Any changes in treatment times after your CT will need to be made by the therapists on your machine. Radiation treatments occur daily Friday through Friday. Normally, there are no treatments on weekends or holidays. Your doctor will tell you if you need treatment on a weekend or holiday. Your treatment will normally be in the same LINAC (treatment machine) each day. You can check the monitors in each waiting room when you come to see if your treatment machine is running on time or if there is a delay. Allow for about 45-60 minutes for your treatment each day. Dr. Whitfield will see you 10/12/21 after your treatment for your On Treatment Visit (OTV). Your physician along with your primary nurse will discuss symptom management and check to see how you are doing. Your primary nurse is Asya. Allow for a longer visit on these days. If you have side effects or trouble related to your treatment in between your weekly OTVs, ask the therapists during your treatment to see a nurse and you can be scheduled for a nursing visit following treatment. The department validates parking, so make sure to ask for a ticket each day. This includes client experience consultant parking. You will be given information on reserved parking in the [place] garages. You will be given a special wrist band today that you can use to check in for your treatments. You do not need to go to registration before each radiation treatment. If you have appointments with any other department at [facility], you must go to registration prior to those appointments. Please call the radiation clinic at [phone] with any questions or concerns. You can also contact your physician via My Chart with any non-urgent issues. My Chart messages are only reviewed during regular business hours. documented in this encounter [facility] 09-20-2021 History of Presen t illness Narrative Elmira Edmondson was seen 09/20/2021 in Radiation Oncology for a CT Simulation. Elmira Edmondson will start radiation on 10/03/21 and receive 5 treatments. Final treatment will be on 10/12/21. Assessed pt for any further needs with regard to childcare, spiritual, financial, transportation, or psychosocial issues. Further education was provided to Elmira Edmondson regarding side effects of radiation, the OTV process, and Time Out procedures prior to daily treatments. No further assistance needed at this time. Maryjane Steiner RN documented in this encounter [facility] 09-19-2021 History of Presen t illness Narrative Patient presents to consult with his . They live in [place], [place] and receive ADT and RT at [facility]. Past medical history, past surgical history, medications, and allergies reviewed with patient and updated in chart. He is here for consult regarding SBRT. Previous RT: + lower abdomen/prostate: Nov 2020- January [address] [facility] Previous/Current Chemotherapy/Immunotherapy: denies Pacemaker: denies ASSESSMENT Fatigue: Grade 1 Fatigue relieved by rest Pain: 0 (No Pain) Location: denies Urinary Frequency: Grade 1 = Present mild Nocturia: 2 Dysuria: Grade 0 = none Hematuria: Grade 0 = none Urinary Urgency: Grade 1 = Present Urinary Incontinence: Grade 1 = Occasional (e.g., with coughing, sneezing, etc.), pads not indicated Constipation: Grade 0 = none Diarrhea: Grade 0 = none Fecal Incontinence: Grade 0 = none Rectal hemorrage: Grade 0 None Rectal pain: Grade 0 None Radiation Dermatitis: Grade 0 = none Hot Flashes: Grade 1 = Mild symptoms; intervention not indicated Erectile Dysfunction: Grade 2 notified Asya Lemus RN Images from the original note were not included. RADIATION ONCOLOGY CONSULTATION NOTE Referring physician: Self, Self Thank you for requesting a Radiation Oncology consultation for Elmira Edmondson in evaluation of the following: DIAGNOSIS: ICD-10-CM 1. Prostate cancer C61 RAD ONC SIMULATION HISTORY OF PRESENT ILLNESS: Elmira Edmondson is a 60 y.o. gentleman with a diagnosis of very high risk prostate adenocarcinoma (pT3bN0, PSA 14.03, Chuck 5+5=10) status post radical prostatectomy on 07/06/20, post-op PSA persistently elevated at 7.97 on 08/29/20, fluciclovine PET on 10/03/20 revealed PET-avid disease in prostate bed and pelvis s/p salvage RT to prostate bed and pelvis (70.2 Gy to bed and 45 Gy to pelvis) completed on 01/31/21 with still ongoing ADT, post-salvage PSA of 0.16 on 04/14/21 but rising to 0.34 on 08/08/21, with PSMA-PET on 08/22/21 revealed several retroperitoneal PET-avid nodes, as well as a presacral LN that was in the prior salvage radiation field. He will be undergoing RP dustin irradiation with Dr. Borrero at [place], with plan to receive 20 fractions delivering 40 Gy to the elective dustin region with 55 Gy boost to the gross nodes. He presents to the [facility] today for consultation regarding SBRT to the persistent presacral LN disease that is located within the prior salvage radiation field. Oncologic Summary: Oncology History Prostate cancer 03/17/2020 Tumor Markers PSA 14.03 05/08/2020 Procedure TRUS Prostate Biopsy 05/08/2020 Pathology 05/24/2020 Imaging Bone Scan 06/01/2020 Imaging MRI Pelvis: 07/06/2020 Surgery Radical Prostatectomy with lymph node dissection 07/06/2020 Pathology 08/29/2020 Tumor Markers PSA 7.97 10/03/2020 Imaging 18F PET: 11/28/2020 Tumor Markers PSA 1.29 11/29/[address] Pelvis 12/07/2020 - 01/31/2021 Radiation 04/14/2021 Tumor Markers PSA 0.16 08/08/2021 Tumor Markers PSA 0.34 08/22/2021 Imaging PET Interval History: He notes mild urinary frequency and urinary incontinence, as well as nocturia x 2. Otherwise without GI symptoms, pain, or constitutional symptoms. I have reviewed Elmira Edmondson medical, surgical and other pertinent history in detail HISTORY OF RADIATION THERAPY: YES - prior history of radiation therapy (salvage RT to prostate bed and pelvis Nov-Jan 2021) No history of collagen vascular disease or inflammatory bowel disease. He does not have a pacemaker or defibrillator. He denies issues with orthopnea or difficulty with arms over head position. PAST MEDICAL/SURGICAL HISTORY: Past Medical History: Diagnosis Date Arrhythmia Atrial flutter History of radiation therapy Kidney stone 2011 Past Surgical History: Procedure Laterality Date KNEE SURGERY Left 2009 2 arthroscopic knee surgery in 2009 and 2017 HERNIA REPAIR Left 1999 VASECTOMY 1991 ALLERGIES: he is allergic to ciprofloxacin. MEDICATIONS: Current Outpatient Medications Medication Sig Dispense Refill Advair Diskus 100-50 MCG/ACT Aerosol Powder, breath activated inhaler ALBUTEROL IN Inhale as needed. flecainide 100 MG tablet metoprolol 50 MG tab regular release Take 50 mg by mouth daily. montelukast 10 MG tablet Xarelto 20 MG tablet No current facility-administered medications for this visit. FAMILY HISTORY: Family History Problem Relation Age of Onset Breast Cancer Mother Lung Cancer Father Prostate Cancer Maternal Grandfather SOCIAL HISTORY: Social History Socioeconomic History Marital status: Spouse name: Not on file Number of children: Not on file Years of education: Not on file Highest education level: Not on file Occupational History Not on file Tobacco Use Smoking status: Never Smoker Smokeless tobacco: Not on file Vaping Use Vaping Use: Never used Substance and Sexual Activity Alcohol use: Yes Alcohol/week: 12.0 standard drinks Types: 12 Cans of beer per week Drug use: Not on file Sexual activity: Not Currently Partners: Female Other Topics Concern Not on file Social History Narrative Not on file Social Determinants of Health Financial Resource Strain: Not on file Food Insecurity: Not on file Transportation Needs: Not on file Physical Activity: Not on file Stress: Not on file Social Connections: Not on file Intimate Partner Violence: Not on file Housing Stability: Not on file REVIEW OF SYSTEMS: Positive 12 point ROS as noted in HPI and RN's note. Otherwise negative. PHYSICAL EXAMINATION: VITALS: BP 128/71 Pulse 63 Temp 98.4 F (36.9 C) (Oral) Resp 18 Wt 111.7 kg (246 lb 4.8 oz) SpO2 96% Smoking Status Never Smoker CONSTITUTIONAL: No acute distress noted. HEENT: Head: Normocephalic and atraumatic. Oropharynx clear. Pupils are equal, round, and reactive to light and accomodation. Extraocular movements are intact. Sclerae are anicteric. NECK: Supple, non-tender. No tracheal deviation. LYMPH NODE: No palpable cervical, supraclavicular or axillary lymphadenopathy CARDIAC: Regular rate and rhythm. No mumurs, rubs or gallops PULMONARY/CHEST: Lungs are clear to auscultation bilaterally. No wheezes, rhonchi or rales. BACK: No spinal tenderness to palpation ABDOMINAL: Abdomen with +bowel sounds. Soft, non-tender, non-distended. EXTREMETIES: No peripheral edema. NEUROLOGICAL: Conscious, alert and oriented. Cranial nerves II through XII are intact grossly and symmetrically. No focal neurologic deficit. SKIN: Skin is warm and dry. PSYCHIATRIC: Appropriate mood and affect for the clinical situation. PERFORMANCE STATUS: ECOG 0 - Fully active, able to carry on all pre-disease performance without restriction LABS/ IMAGING/ STUDIES: Laboratory Findings: No results found for: WBC, WBCCOUNT, WBCFETAL, HGB, HCT, PLATELET, MCV No results found for: SODIUM, POTASSIUM, CHLORIDE, CO2, BUN, CREATSERUM, GLUCOSE Pathologic Findings: See HPI Radiographic Findings: See HPI ASSESSMENT & PLAN: Elmira Edmondson is a 60 y.o. gentleman with a diagnosis of very high risk prostate adenocarcinoma (pT3bN0, PSA 14.03, Elim 5+5=10) status post radical prostatectomy on 07/06/20, post-op PSA persistently elevated at 7.97 on 08/29/20, fluciclovine PET on 10/03/20 revealed PET-avid disease in prostate bed and pelvis s/p salvage RT to prostate bed and pelvis (70.2 Gy to bed and 45 Gy to pelvis) completed on 01/31/21 with still ongoing ADT, post-salvage PSA of 0.16 on 04/14/21 but rising to 0.34 on 08/08/21, with PSMA-PET on 08/22/21 revealed several retroperitoneal PET-avid nodes, as well as a presacral LN that was in the prior salvage radiation field. He will be undergoing RP dustin irradiation with Dr. Borrero at [place], with plan to receive 20 fractions delivering 40 Gy to the elective dustin region with 55 Gy boost to the gross nodes. He presents to the [facility] today for consultation regarding SBRT to the persistent presacral LN disease that is located within the prior salvage radiation field. We discussed SBRT to the persistent small presacral LN disease to achieve tumor eradication while minimizing re-irradiation dose to the nearby organs at risk, namely the sigmoid colon. On review of his prior scans, there appears to be some distance between the presacral node to the adjacent sigmoid colon, which should allow safe delivery of SBRT treatment with relatively low exposure of sigmoid colon to additional radiation dose. We discussed either concurrent or sequential treatment of his SBRT here at the [facility] with his fractionated EBRT at [place], and patient would prefer concurrent, which is also logistically feasible per the patient. We plan to deliver 35-40 Gy in 5 fractions to the presacral dustin disease, but will dose-reduce if OAR constraints cannot be met. The logistics of radiation therapy, side effects and complications were discussed in detail with the patient and his at the time of this consultation. We explained the logistics of external beam radiation therapy including simulation for stereotactic radiation therapy planning followed by [id number] treatment for 5 fractions over 1.5 weeks. The side effects of radiation therapy were also explained to the patient, including but not limited to, acute side effects in the form of fatigue, loose stools or diarrhea, and late side effects in the form of change in bowel habits, radiation proctitis, and possible risk of large bowel ulceration/fistula in the setting of re-irradiation. The patient indicated that he understood the recommendations and would like to proceed with treatment. All of the patient's questions were answered to his satisfaction. He signed e-consent for SBRT treatment, and he is schedule for CT simulation tomorrow (09/20/21). Thank you for allowing me to participate in the management and care of your patient. If I may answer any questions in the interim, please do not hesitiate to contact me at any time. I spent >60 minutes today on chart review and with the patient, >50% of that dedicated to counseling and coordination of care. Sukumar Whitfield MD, PhD [employer] Radiation Oncology documented in this encounter [facility] Evaluation + Plan note Future Appointments Appointment Date:03/08/2021 08:30:00 AM Scheduled Provider:MANGO KHAN MD Location:[facility] Appointment Type:PC Wellness Annual [facility] Evaluation + Plan note Future Appointments Appointment Date:01/27/2024 08:30:00 AM Scheduled Provider:DRARIAN CROCKETT DO Location:[facility] Appointment Type:PC Wellness Annual [facility] Diagnosis Prostate cancer- Primary Malignant neoplasm of prostate [facility] N[facility] No data available for this section [facility] Hospital Discharge instructions No data available for this section [facility] Progress note No data available for this section [facility] Reason for referral (narrative)* (Routine) - Open Specialty Diagnoses / Procedures Referred By Contponcho t Referred To Contact Diagnoses Prostate cancer Procedures RAD ONC Sukumar Doss MD, PhD [address] [place] [id number] Referral ID Status Reason Start Date Expiration Date Visits Re quested Visits Authorized [id number] Open 09/19/2021 10/14/2022 1 1 [facility] N[facility]ative* (Routine) - Open Specialty Diagnoses / Procedures Referred By Chase sherman Referred To Contact Diagnoses Prostate cancer Procedures RAD ONC Sukumar Doss MD, PhD [address] [place] [address] Referral ID Status Reason Start Date Expiration Date Visits Re quested Visits Authorized [id number] Open 09/19/2021 10/14/2022 1 1 [facility] Summary Purpose Family History No Family History Records Found No data available for this section No Family History Records Found Advance Directives No Advanced Directives Records FoundNo Advanced Directives Records Found Additional Source Comments Reason for Visit (unrecogniz ed section and content) Reason Comments Consult Care Teams (unrecognized sec tion and content) Library Page Relationship Specialty Start Date End Date Mango Khan MD [address] [place] [address] PCP - General Family Medicine 09/19/21 Tristan Borrero DO [address] [facility] [address] [place] [address] Radiation Oncologist Radiation Oncology 09/19/21 Sukumar Whitfield MD, PhD [address] [place] [address] Radiation Oncologist Radiation Oncology 09/19/21 Sanna Beunrostro, RN Registered Nurse 09/19/21 Library Page Relationship Specialty Start Date End Date Mango Khan MD [address] [place] [address] PCP - General Family Medicine 09/19/21 Tristan Borrero DO [address] [facility] [address] [place] [address] Radiation Oncologist Radiation Oncology 09/19/21 Sukumar Whitfield MD, PhD [address] [place] [address] Radiation Oncologist Radiation Oncology 09/19/21 Sanna Buenrostro, RN Registered Nurse 09/19/21 Library Page Relationship Specialty Start Date End Date Mango Khan MD [address] [place] [address] PCP - General Family Medicine 09/19/21 Tristan Borrero DO [facility] [address] [address] Radiation Oncologist Radiation Oncology 09/19/21 Sukumar Whitfield MD, PhD [address] [place] [address] Radiation Oncologist Radiation Oncology 09/19/21 Sanna Buenrostro, RN Registered Nurse 09/19/21 (unrecognized sect ion and content) No Status Records FoundNo Status Records Found INFORMATION SOURCE (unrecogn ized section and content) DATE CREATED AUTHOR AUTHOR'S ORGANIZ ATION 01/31/2023 [facility] [place] Care Team (unrecognized sect ion and content) Care Team Personnel Name: MANGO KHAN MD Position: P4 Physician - Primary Care Member Role: Primary Care Physician Address: Address: [address] [place] [address] Physicians [place], [place] [address] Care Team Related Persons Name: SANDHYA EDMONDSON Address: Home [address] [place] [phone] FOR RECORDS PERTAINING TO PATIENTS WHO ARE OR HAVE BEEN ENROLLED IN A CHEMICAL DEPENDENCY/SUBSTANCEABUSE PROGRAM, SOME INFORMATION MAY BE OMITTED. This clinical summary was aggregated from multiple sources. Caution should be exercised in using it in the provision of clinical care. This summary normalizes information from multiple sources, and as a consequence, information in this document may materially change the coding, format and clinical context of patient data. In addition, data may be omitted in some cases. CLINICAL DECISIONS SHOULD BE BASED ON THE PRIMARY CLINICAL RECORDS. [employer] provides no warranty or guarantee of the accuracy or completeness of information in this document.
== END | disposition home or self-care (01) ==
LOC: NM 07:52
PROVIDERS: Referring Provider Internal Medicine Hematology & Oncology; Visit Provider Internal Medicine Hematology & Oncology
DX: C61 Malignant neoplasm of prostate (principal); C79.51 Secondary malignant neoplasm of bone; C77.9 Secondary and unspecified malignant neoplasm of lymph node, unspecified
CPT/HCPCS: 78306; A9503

== ENCOUNTER → 2023-06-27 | Outpatient (CLI) | payer BC, SELFPAY ==
--- OUTSIDE RECORDS SUMMARY | 2023-06-27 18:01 | XMS RPT_ITS | CCD ---
Author Name Unknown Address [address] [place] [address] Organization [facility] Care Team Providers Care Electromechanical Assembler Name Role Phone ROSA ELENA MUNIZ, MANGO Stallworth Primary Care Physician Tristan Borrero DO Unavailable Nahid MUNIZ, PhD, Sukumar Unavailable [phone] Mango Khan MD Primary Care Provider Porter [...] Care Unavailable AARON WHITFIELD-RAGHAV Attending Unavailable AARON WHITFIELD-RAGHAV Attending Unavailable SALVADOR WHITFIELDG-RENETTAI Referring Unavailable NAUMOFF, MANGO Primary Care Unavailable AARON WHITFIELD-RAGHAV Attending Unavailable SUKUMAR WHITFIELD Referring Unavailable NAUMOFF, MANGO Primary Care Unavailable DARRIAN CROCKETT DO Primary Care Physician DARRIAN CROCKETT DO Attending Unavailable DARRIAN CROCKETT DO Primary Care Unavailable [place] [facility] [employer] Attending Wilson KHAN MD, MANGO Stallworth Primary Care Unavailable Allergies Allergy Classification Reported Allergen(s) Allergy Type Date of Onset Reaction(s) Facility (6 sources) Ciprofloxacin; Translations: [ciprofloxacin] Drug Allergy 09-19-2021 couldn't walk, hurt feet. [facility] Medications Current Medications Medication Drug Class(es) Dates [...] [degF] Sukumar Whitfield MD, PhD Work Phone: [facility] 09-19-2021 13:17-040 Body weight 111.72 kg Sukumar Whitfield MD, PhD Work Phone: [facility] 09-19-2021 13:17-040 Diastolic blood pressure 71 mm[Hg] Sukumar Whitfield MD, PhD Work Phone: [facility] 09-19-2021 13:17-040 Heart rate 63 /min Sukumar Whitfield MD, PhD Work Phone: [facility] 09-19-2021 13:17-0400 Respiratory rate 18 /min Sukumar Whitfield MD, PhD Work Phone: [facility] 09-19-2021 13:17-0400 SaO2% (BldA) [Mass fraction] 96 % Sukumar Whitfield MD, PhD Work Phone: [facility] 09-19-2021 13:17-0400 Systolic blood pressure 128 mm[Hg] Sukumar Whitfield MD, PhD Work Phone: [facility] Encounters Encounter Date Encounter Type Care Provider Facility Start: 01-21-2023 End: 01-26-2023 ambulatory DARRIAN CROCKETT DO Facility:[facility] Start: 01-21-2023 End: 01-26-2023 Encounter for general adult medical examination without abnormal findings DARRIAN CROCKETT DO Facility:[facility] Start: 01-21-2023 End: 01-25-2023 Outreach Lab DARRIAN CROCKETT DO [facility] Start: 03-08-2022 End: 03-09-2022 ambulatory [facility] Facility[facility] Start: 03-08-2022 End: 03-08-2022 Patient encounter procedure [facility] IMMUNOLOGIST-[employer]OMOTIVE DESIGN [facility] Start: 10-12-2021 ambulatory SUKUMAR WHITFIELD [...] Start: 07-05-2020 Prostatic structure (body structure) [facility] [place] [facility] Plan of Treatment Date Care Activity Detail Author Start: 12-27-2021 Influenza vaccination INFLUENZA VACCINE (Season Ended) [facility] Start: 10-12-2021 End: 10-12-2021 Patient encounter procedure Department of Radiation Oncology Start: 10-10-2021 End: 10-10-2021 Patient encounter procedure 10/10/2021 Appointment Radiation Oncology Sukumar Whitfield MD, PhD [address] [place] [address] Department of Radiation Oncology Start: 10-08-2021 End: 10-08-2021 Patient encounter procedure 10/08/2021 Appointment Radiation Oncology Sukumar Whitfield MD, PhD [address] [place] [address] Department of Radiation Oncology Start: 10-05-2021 End: 10-05-2021 Patient encounter procedure 10/05/2021 Appointment Radiation Oncology Sukumar Whitfield MD, PhD [address] [place] [address] Department of Radiation Oncology Start: 10-03-2021 End: 10-03-2021 Patient encounter procedure 10/03/2021 Appointment Radiation Oncology Sukumar Whitfield MD, PhD [address] [place] [address] Department of Radiation Oncology Start: 2012 Prostate specific antigen measurement PROSTATE CANCER SCREENING DISCUSSION [facility] Start: 2012 Zoster vaccine hzv live for subcutaneous use ZOSTER (SHINGLES) VACCINE (1 of 2) [facility] Start: 12-02-2007 Colonoscopy COLORECTAL CANCER SCREENING DISCUSSION [facility] Start: 2002 Fasting lipid profile LIPID SCREENING [facility] Start: 1981 Third diphtheria, tetanus and acellular pertussis (DTaP) vaccination TDAP (ADULT) [facility] Start: 1980 Tetanus vaccination TETANUS [facility] Start: 1977 HIV screening HIV SCREENING DISCUSSION [facility] Start: 1968 PNEUMOCOCCAL VACCINE SERIES (1 - PCV) PNEUMOCOCCAL VACCINE SERIES (1 - PCV) [facility] Start: 12-02-1967 COVID-19 VACCINE (#1) COVID-19 VACCINE (#1) [facility] Start: 1962 Hepatitis C antibody, confirmatory test HEPATITIS C VIRUS SCREENING [facility] RAD ONC SIMULATION RAD ONC SIMULATION Imaging Routine Prostate cancer 09/20/2021 1:06 PM EDT [facility] Immunizations Immunization Date Immunization Notes Care Provider Fa cility 01-21-2023 tetanus toxoid, redu maxim diphtheria toxoid, and acellular pertussis vaccine, adsorbed; Translations: [Boostrix (Tdap)] DARRIAN CROCKETT DO [facility] 05-02-2017 pneumococcal polysaccharide vaccine, 23 valent [facility] PEDIATRIC IMMUNOLOGIST-DRAFTER AUTOMOTIVE DESIGN [facility] Payers Date Payer Category Payer Unknown [id number] 2020 Unknown [employer] [place] [id number] 2020-Present [address] [place] [address] [id number] 2020 Unknown [id number] 1962 Unknown [id number] 1962 Unknown [id number] [id number] 1962 Unknown [id number] [id number] 1962 Unknown [id number] [id number] 1962 Unknown [id number] [id number] 1962 Unknown [id number] [id number] 1962 Unknown [id number] [id number] 1962 Unknown [id number] [id number] 1962 Unknown [id number] [id number] 1962 Unknown [id number] [id number] 1962 Unknown [id number] [id number] 1962 Unknown [id number] [id number] Social History Date Type Detail Facility Tobacco Nicotine Use: ew . Exposure to Tobacco Smoke Lives with someone who smokes. Type: Oral (Snuff, Chew). [facility] Clinical Notes 09-19-2021 to 10-12-2021 [...] high risk prostate adenocarcinoma (pT3bN0, PSA 14.03, [place] 5+5=10) status post radical prostatectomy on 07/06/20, [...] RP dustin irradiation with Dr. Borrero at [place], with plan to receive 20 fractions delivering [...] coverage and minimize dose to adjacent tissues. quality assurance test program manager checks were performed on the plan. The patient was immobilized utilizing the [employer] stereotactic body frame. Cone beam CT centered at the isocenter was taken and very minor shifts were made after approval by ok. The patient received treatment with 10 FFF [...] approximately 4-8 weeks. Sukumar Whitfield MD, PhD Managing Member Department of Radiation Oncology [facility] Work Phone: 10-12-2021 Procedure note Associated Ord [...] RP dustin irradiation with Dr. Borrero at [place], with plan to receive 20 fractions delivering [...] coverage and minimize dose to adjacent tissues. quality assurance test program manager checks were performed on the plan. The patient was immobilized utilizing the [employer] stereotactic body frame. Cone beam CT centered [...] approximately 4-8 weeks. Sukumar Whitfield MD, PhD Managing Member Department of Radiation Oncology [facility] documented in this encounter [facility] 09-20-2021 Instructions Maryjane Steiner RN - 09/20/2021 [...] for a ticket each day. This includes third shift lieutenant parking. You will be given information on reserved parking in the [place] garages. You will be given a special wrist band today that you can use to check in for your treatments. You do not need to go to registration before each radiation treatment. If you have appointments with any other department at [facility], you must go to registration prior to those appointments. Please call the radiation clinic at [phone] with any questions or concerns. You can also contact your physician via My Chart with any non-urgent issues. My Chart messages are only reviewed during regular business hours. documented in this encounter [facility] 09-20-2021 History of Presen t illness Narrative [...] Steiner RN documented in this encounter [facility] 09-19-2021 History of Presen t illness Narrative Patient presents to consult with his . They live in [place], [place] and receive ADT and RT at [facility]. Past medical history, past surgical history, medications, and allergies reviewed with patient and updated in chart. He is here for consult regarding SBRT. Previous RT: + lower abdomen/prostate: Nov 2020- January 2021 at [facility] Previous/Current Chemotherapy/Immunotherapy: denies Pacemaker: denies ASSESSMENT Fatigue: [...] high risk prostate adenocarcinoma (pT3bN0, PSA 14.03, [place] 5+5=10) status post radical prostatectomy on 07/06/20, [...] RP dustin irradiation with Dr. Borrero at [place], with plan to receive 20 fractions delivering 40 Gy to the elective dustin region with 55 Gy boost to the gross nodes. He presents to the [facility] Rad[facility] Oncology Clinic today for consultation regarding [...] high risk prostate adenocarcinoma (pT3bN0, PSA 14.03, [place] 5+5=10) status post radical prostatectomy on 07/06/20, [...] RP dustin irradiation with Dr. Borrero at [place], with plan to receive 20 fractions delivering 40 Gy to the elective dustin region with 55 Gy boost to the gross nodes. He presents to the [facility] Radiation Oncology Clinic today for consultation regarding [...] treatment of his SBRT here at the [facility] with his fractionated EBRT at [place], and patient would prefer concurrent, which is [...] for stereotactic radiation therapy planning followed by [id number] treatment for 5 fractions over 1.5 weeks. [...] coordination of care. Sukumar Whitfield MD, PhD Managing Member Radiation Oncology documented in this encounter [facility] Evaluation + Plan note Future Appointments Appointment Date:03/08/2021 08:30:00 AM Scheduled Provider:MANGO KHAN MD Location:[facility] Appointment Type:PC Wellness Annual [facility] Evaluation + Plan note Future Appointments Appointment Date:01/27/2024 08:30:00 AM Scheduled Provider:DARRIAN CROCKETT DO Location:[facility] Appointment Type:PC Wellness Annual [facility] Prostate cancer- Primary Malignant neoplasm of prostate [facility] N[facility] No data available for this section [facility] Hospital Discharge instructions No data available for this section [facility] Progress note No data available for this section [facility] Reason for referral (narrative)* (Routine) - Open Specialty Diagnoses / Procedures Referred By Contponcho t Referred To Contact Diagnoses Prostate cancer Procedures RAD ONC Sukumar Doss MD, PhD [address] [place] [address] Referral ID Status Reason Start Date Expiration Date Visits Re quested Visits Authorized [id number] Open 09/19/2021 10/14/2022 1 1 [facility] ([facility]ine) - Open Specialty Diagnoses / Procedures Referred By Chase sherman Referred To Contact Diagnoses Prostate cancer Procedures RAD ONC Sukumar Doss MD, PhD [address] [place] [address] Referral ID Status Reason Start Date Expiration Date Visits Re quested Visits Authorized [id number] Open 09/19/2021 10/14/2022 1 1 [facility] Summary Purpose Family History No Family History Records Found No data available for this section No Family History Records Found Advance Directives No Advanced Directives Records FoundNo Advanced Directives Records Found Additional Source Comments Reason for Visit (unrecogniz ed section and content) Reason Comments Consult Care Teams (unrecognized sec tion and content) Electromechanical Assembler Relationship Specialty Start Date End Date Mango Khan MD [address] [place] [address] PCP - General Family Medicine 09/19/21 Tristan Borrero DO [address] [facility] [address] [place] [address] Radiation Oncologist Radiation Oncology 09/19/21 Sukumar Whitfield MD, PhD [address] [place] [address] Radiation Oncologist Radiation Oncology 09/19/21 Sanna Buenrostro, RN Registered Nurse 09/19/21 Electromechanical Assembler Relationship Specialty Start Date End Date Mango Khan MD [address] [place] [address] PCP - General Family Medicine 09/19/21 Tristan Borrero DO [address] [facility] [address] [place] [address] Radiation Oncologist Radiation Oncology 09/19/21 Sukumar Whitfield MD, PhD [address] [place] [address] Radiation Oncologist Radiation Oncology 09/19/21 Sanna Buenrostro, RN Registered Nurse 09/19/21 Electromechanical Assembler Relationship Specialty Start Date End Date Mango Khan MD [address] [place] [address] PCP - General Family Medicine 09/19/21 Tristan [facility] DO [facility] [facility] [address] [address] Radiation Oncologist Radiation Oncology 09/19/21 Sukumar Whitfield MD, PhD [address] [place] [address] Radiation Oncologist Radiation Oncology 09/19/21 Sanna Buenrostro, RN Registered Nurse 09/19/21 (unrecognized sect ion and content) No Status Records FoundNo Status Records Found INFORMATION SOURCE (unrecogn ized section and content) DATE CREATED AUTHOR AUTHOR'S ORGANIZ ATION 01/31/2023 [facility] ([place]) Care Team (unrecognized sect ion and content) Care Team Personnel Name: MANGO KHAN MD Position: P4 Physician - Primary Care Member Role: Primary Care Physician Address: Address: [address] [place] [address] Physicians [place], [place] [address] Care Team Related Persons Name: SANDHYA EDMONDSON Address: Home [address] [place] [phone] FOR RECORDS PERTAINING TO PATIENTS WHO ARE [...] BE BASED ON THE PRIMARY CLINICAL RECORDS. [employer] provides no warranty or guarantee of the accuracy or completeness of information in this document.
[2023-06-27 18:24] LABS: Amphetamine Urine VISTA NEGATIVE (<1000 ng/mL); Barbiturate Urine VISTA NEGATIVE (< 200 ng/mL); Benzodiazepine Urine VISTA NEGATIVE (< 200 ng/mL); Cocaine Urine VISTA NEGATIVE (< 300 ng/mL); Ecstacy Urine VISTA NEGATIVE (< 500 ng/mL); Methadone Urine VISTA NEGATIVE (< 300 ng/mL); PCP Urine VISTA NEGATIVE (< 25 ng/mL); THC Urine VISTA NEGATIVE (< 50 ng/mL); Vista UDS pH Range 6
== END | disposition home or self-care (01) ==
LOC: LAB 15:04
PROVIDERS: Referring Provider Anesthesiology; Visit Provider Anesthesiology
DX: M54.16 Radiculopathy, lumbar region (principal)
CPT/HCPCS: 80307

== ENCOUNTER → 2023-07-04 | Outpatient (CLI) | payer BC, SELFPAY ==
--- OUTSIDE RECORDS SUMMARY | 2023-07-04 07:13 | XMS RPT_ITS | CCD ---
Author Name Unknown Address [address] [place] [address] Organization [facility] Care Team Providers Care Plaster Maker Name Role Phone ROSA ELENA MUNIZ, MANGO [...] Unavailable DARRIAN CROCKETT DO Primary Care Unavailable [facility] COORDIN[facility]-SEED SOR[facility] Attending Wilson KHAN MD, MANGO Stallworth Primary Care Unavailable Allergies Allergy Classification Reported Allergen(s) Allergy Type Date of Onset Reaction(s) Facility (6 sources) Ciprofloxacin; Translations: [ciprofloxacin] Drug Allergy 09-19-2021 couldn't walk, hurt feet. [facility] Medications Current Medications Medication Drug Class(es) [...] [degF] Sukumar Whitfield MD, PhD Work Phone: [facility] 09-19-2021 13:17-040 Body weight 111.72 kg Sukumar Whitfield MD, PhD Work Phone: [facility] 09-19-2021 13:17-040 Diastolic blood pressure 71 mm[Hg] Sukumar Whitfield MD, PhD Work Phone: [facility] 09-19-2021 13:17-040 Heart rate 63 /min Sukumar Whitfield MD, PhD Work Phone: [facility] 09-19-2021 13:17-0400 Respiratory rate 18 /min Sukumar Whitfield MD, PhD Work Phone: [facility] 09-19-2021 13:17-0400 SaO2% (BldA) [Mass fraction] 96 % Sukumar Whitfield MD, PhD Work Phone: [facility] 09-19-2021 13:17-0400 Systolic blood pressure 128 mm[Hg] Sukumar Whitfield MD, PhD Work Phone: [facility] Encounters Encounter Date Encounter Type Care Provider Facility Start: 01-21-2023 End: 01-26-2023 ambulatory DARRIAN CROCKETT DO Facility:[facility] Start: 01-21-2023 End: 01-26-2023 Encounter for general adult medical examination without abnormal findings DARRIAN CROCKETT DO Facility:[facility] Start: 01-21-2023 End: 01-25-2023 Outreach Lab DARRIAN CROCKETT DO [facility] Start: 03-08-2022 End: 03-09-2022 [facility] Facility[facility] Start: 03-08-2022 End: 03-08-2022 Patient encounter procedure [facility] CANCER REGISTRY COORDINATOR-SEED SORTER [facility] Start: 10-12-2021 ambulatory SUKUMAR WHITFIELD [...] Start: 07-05-2020 Prostatic structure (body structure) KRUNAL [facility] REGISTRY COORDINATOR-SEED SORTER Plan of Treatment Date Care Activity Detail Author Start: 12-27-2021 Influenza vaccination INFLUENZA VACCINE (Season Ended) [facility] Start: 10-12-2021 End: 10-12-2021 Patient encounter procedure Department of Radiation Oncology Start: 10-10-2021 End: 10-10-2021 Patient encounter procedure 10/10/2021 Appointment Radiation Oncology Sukumar Whitfield MD, PhD [address] [place] [id number] Department of Radiation Oncology Start: 10-08-2021 End: 10-08-2021 Patient encounter procedure 10/08/2021 Appointment Radiation Oncology Sukumar Whitfield MD, PhD [address] [place] [address] Department of Radiation Oncology Start: 10-05-2021 End: 10-05-2021 Patient encounter procedure 10/05/2021 Appointment Radiation Oncology Sukumar Whitfield MD, PhD [address] [place] [address] Department of Radiation Oncology Start: 10-03-2021 End: 10-03-2021 Patient encounter procedure 10/03/2021 Appointment Radiation Oncology Sukumar Whitfield MD, PhD [address] [place] [address] Department of Radiation Oncology Start: 2012 Prostate specific antigen measurement PROSTATE CANCER SCREENING DISCUSSION [facility] Start: 2012 Zoster vaccine hzv live for subcutaneous use ZOSTER (SHINGLES) VACCINE (1 of 2) [facility] Start: 12-02-2007 Colonoscopy COLORECTAL CANCER SCREENING DISCUSSION [facility] Start: 2002 Fasting lipid profile LIPID SCREENING [facility] Start: 1981 Third diphtheria, tetanus and acellular pertussis (DTaP) vaccination TDAP (ADULT) [facility] Start: 1980 Tetanus vaccination TETANUS [facility] Start: 1977 HIV screening HIV SCREENING DISCUSSION [facility] Start: 1968 PNEUMOCOCCAL VACCINE SERIES (1 - PCV) PNEUMOCOCCAL VACCINE SERIES (1 - PCV) [facility] Start: 12-02-1967 COVID-19 VACCINE (#1) COVID-19 VACCINE (#1) [facility] Start: 1962 Hepatitis C antibody, confirmatory test HEPATITIS C VIRUS SCREENING [facility] RAD ONC SIMULATION RAD ONC SIMULATION Imaging Routine Prostate cancer 09/20/2021 1:06 PM EDT [facility] Immunizations Immunization Date Immunization Notes Care Provider Fa cility 01-21-2023 tetanus toxoid, redu maxim diphtheria toxoid, and acellular pertussis vaccine, adsorbed; Translations: [Boostrix (Tdap)] DARRIAN CROCKETT DO [facility] 05-02-2017 pneumococcal polysaccharide vaccine, 23 valent [facility] CANCER REGISTRY COORDINATOR-SEED SORTER [facility] Payers Date Payer Category Payer Unknown [id number] 2020 Unknown [employer] [place] [id number] 2020-Present [address] [place] [address] [id number] 2020 Unknown [id number] 1962 Unknown [id number] 1962 Unknown [id number] [id number] 1962 Unknown [id number] [id number] 1962 Unknown [id number] [id number] 1962 Unknown [id number] [id number] 1962 Unknown [id number] [id number] 1962 Unknown [id number] [id number] 1962 Unknown [id number] [id number] 1962 Unknown [id number] [id number] 1962 Unknown [id number] [id number] 1962 Unknown [id number] [id number] 1962 Unknown [id number] [id number] Social History Date Type Detail Facility Tobacco Nicotine Use: ew . Exposure to Tobacco Smoke Lives with someone who smokes. Type: Oral (Snuff, Chew). [facility] Clinical Notes 09-19-2021 to 10-12-2021 [...] high risk prostate adenocarcinoma (pT3bN0, PSA 14.03, [place] 5+5=10) status post radical prostatectomy on 07/06/20, [...] RP dustin irradiation with Dr. Borrero at [facility], with plan to receive 20 fractions delivering [...] coverage and minimize dose to adjacent tissues. neck pinner checks were performed on the plan. The patient was immobilized utilizing the [employer] stereotactic body frame. Cone beam CT centered at the isocenter was taken and very minor shifts were made after approval by wi. The patient received treatment with 10 FFF [...] approximately 4-8 weeks. Sukumar Whitfield MD, PhD Glass Artist Department of Radiation Oncology [facility] Work Phone: 10-12-2021 Procedure note Associated [...] RP dustin irradiation with Dr. Borrero at [facility], with plan to receive 20 fractions delivering [...] coverage and minimize dose to adjacent tissues. neck pinner checks were performed on the plan. The patient was immobilized utilizing the [employer] stereotactic body frame. Cone beam CT centered [...] approximately 4-8 weeks. Sukumar Whitfield MD, PhD Glass Artist Department of Radiation Oncology [facility] documented in this encounter [facility] 09-20-2021 Instructions Maryjane Steiner RN - [...] for a ticket each day. This includes medicare sales representative parking. You will be given information on reserved parking in the [place] garages. You will be given a special wrist band today that you can use to check in for your treatments. You do not need to go to registration before each radiation treatment. If you have appointments with any other department at [facility], you must go to registration prior to those appointments. Please call the radiation clinic at [phone] with any questions or concerns. You can also contact your physician via My Chart with any non-urgent issues. My Chart messages are only reviewed during regular business hours. documented in this encounter [facility] 09-20-2021 History of Presen t illness [...] Steiner RN documented in this encounter [facility] 09-19-2021 History of Presen t illness Narrative Patient presents to consult with his . They live in [place], [place] and receive ADT and RT at [facility]. Past medical history, past surgical history, medications, and allergies reviewed with patient and updated in chart. He is here for consult regarding SBRT. Previous RT: + lower abdomen/prostate: Nov 2020- January 2021 at [facility] Previous/Current Chemotherapy/Immunotherapy: denies Pacemaker: denies ASSESSMENT [...] high risk prostate adenocarcinoma (pT3bN0, PSA 14.03, [place] 5+5=10) status post radical prostatectomy on 07/06/20, [...] RP dustin irradiation with Dr. Borrero at [place], with plan to receive 20 fractions delivering 40 Gy to the elective dustin region with 55 Gy boost to the gross nodes. He presents to the [facility] Radiation Oncology Clinic today for consultation regarding [...] high risk prostate adenocarcinoma (pT3bN0, PSA 14.03, [place] 5+5=10) status post radical prostatectomy on 07/06/20, [...] RP dustin irradiation with Dr. Borrero at [facility], with plan to receive 20 fractions delivering 40 Gy to the elective dustin region with 55 Gy boost to the gross nodes. He presents to the [facility] Radiation Oncology Clinic today for consultation regarding [...] treatment of his SBRT here at the [facility] with his fractionated EBRT at [facility], and patient would prefer concurrent, which is [...] for stereotactic radiation therapy planning followed by [id number] treatment for 5 fractions over 1.5 weeks. [...] coordination of care. Sukumar Whitfield MD, PhD Glass Artist Radiation Oncology documented in this encounter [facility] Evaluation + Plan note Future Appointments Appointment Date:03/08/2021 08:30:00 AM Scheduled Provider:MANGO KHAN MD Location:[facility] Appointment Type:PC Wellness Annual [facility] Evaluation + Plan note Future Appointments Appointment Date:01/27/2024 08:30:00 AM Scheduled Provider:DARRIAN CROCKETT DO Location:[facility] Appointment Type:PC Wellness Annual [facility] Prostate cancer- Primary Malignant neoplasm of prostate [facility] No data available for this section [facility] Hospital Discharge instructions No data available for this section [facility] Progress note No data available for this section [facility] Reason for referral (narrative)* (Routine) - Open Specialty Diagnoses / Procedures Referred By Contponcho t Referred To Contact Diagnoses Prostate cancer Procedures RAD ONC Sukumar Doss MD, PhD [address] [place] [address] Referral ID Status Reason Start Date Expiration Date Visits Re quested Visits Authorized [id number] Open 09/19/2021 10/14/2022 1 1 [facility] (Routine) - Open Specialty Diagnoses / Procedures Referred By Chase sherman Referred To Contact Diagnoses Prostate cancer Procedures RAD ONC Sukumar Doss MD, PhD [address] [place] [address] Referral ID Status Reason Start Date Expiration Date Visits Re quested Visits Authorized [id number] Open 09/19/2021 10/14/2022 [address] [facility] Summary Purpose Family History No Family History Records Found No data available for this section No Family History Records Found Advance Directives No Advanced Directives Records FoundNo Advanced Directives Records Found Additional Source Comments Reason for Visit (unrecogniz ed section and content) Reason Comments Consult Care Teams (unrecognized sec tion and content) Plaster Maker Relationship Specialty Start Date End Date Mango Khan MD [address] [place] [address] PCP - General Family Medicine 09/19/21 Tristan Borrero DO [address] [facility] [address] [place] [address] Radiation Oncologist Radiation Oncology 09/19/21 Sukumar Whitfield MD, PhD [address] [place] [address] Radiation Oncologist Radiation Oncology 09/19/21 Sanna Buenrostro, RN Registered Nurse 09/19/21 Plaster Maker Relationship Specialty Start Date End Date Mango Khan MD [address] [place] [address] PCP - General Family Medicine 09/19/21 Tristan Borrero DO [address] [facility] [address] [place] [address] Radiation Oncologist Radiation Oncology 09/19/21 Sukumar Whitfield MD, PhD [address] [place] [address] Radiation Oncologist Radiation Oncology 09/19/21 Sanna Buenrostro, RN Registered Nurse 09/19/21 Plaster Maker Relationship Specialty Start Date End Date Mango Khan MD [address] [place] [address] PCP - General Family Medicine 09/19/21 Tristan [facility] DO [facility] [facility] [address] [address] Radiation Oncologist Radiation Oncology 09/19/21 Sukumar Whitfield MD, PhD [address] [place] [address] Radiation Oncologist Radiation Oncology 09/19/21 Sanna Buenrostro, RN Registered Nurse 09/19/21 (unrecognized sect ion and content) No Status Records FoundNo Status Records Found INFORMATION SOURCE (unrecogn ized section and content) DATE CREATED AUTHOR AUTHOR'S ORGANIZ ATION 01/31/2023 [facility] ([place] Care Team (unrecognized sect ion and content) Care Team Personnel Name: MANGO KHAN MD Position: P4 Physician - Primary Care Member Role: Primary Care Physician Address: Address: [address] [place] [address] Physicians [place], [place] [address] Care Team Related Persons Name: SANDHYA EDMONDSON Address: Home [address] [place] [phone] FOR RECORDS PERTAINING TO PATIENTS WHO ARE [...] BE BASED ON THE PRIMARY CLINICAL RECORDS. [employer] provides no warranty or guarantee of the accuracy or completeness of information in this document.
--- NOTE | 2023-07-04 07:25 | MRI_ITS ---
HISTORY: BONE CA. Pain low back and right buttock, thigh. TECHNIQUE: Multiplanar and multisequence MR images of the lumbar spine were obtained before and after the intravenous administration of 23 mL Clariscan. 236 images. COMPARISON: [place] 06/24/2023, CT 03/28/2023. FINDINGS: VERTEBRAE: Vertebral body heights maintained. Multiple T1 hypointense, STIR hyperintense, enhancing lesions in the vertebral bodies and posterior elements of L1, L2, L3, L5, left sacrum, and right iliac. 4.9 x 4.9 cm expansile mass of the right L3 transverse process with enhancing extraosseous soft tissue component and cortical breakthrough invading the right paraspinal soft tissues, previously 2.6 x 4.6 cm. Right L3 transverse process mass invades the right L2-3 neural foramen with moderate foraminal narrowing and the right L3-4 neural foramen with moderate-severe foraminal narrowing. The right L3 posterior element metastatic lesion also invades the right lateral and dorsal aspect of the spinal canal with mild enhancement along the ligamentum flavum. Incidental note made of hemangioma in the T11 vertebral body and degenerative endplate changes at multiple levels. ALIGNMENT: Chronic mild anterolisthesis of L3-4 and retrolisthesis of L4-5. SPINAL CANAL: Normal morphology and position of the conus medullaris at T12-L1 without enhancing lesion. INTERVERTEBRAL DISCS: T12-L1: Minimal disc bulge and facet arthropathy without significant central canal stenosis or foraminal narrowing. L1-2: No significant posterior disc protrusion, central canal stenosis, or foraminal narrowing. L2-3: Mild disc bulge and facet arthropathy with minimal narrowing of the thecal sac and left foramina. Right foraminal invasion and narrowing secondary to tumor. L3-4: Right L3 and L4 nerve root effacement secondary to the right posterior element metastatic lesion. Disc bulge with facet arthropathy resulting in mild central canal stenosis and left foraminal narrowing. Combination of degenerative change and metastatic lesion moderate to severely narrowing the right neural foramen. Extension of extraosseous soft tissue mass into the right dorsal lateral aspect of the spinal canal. L4-5: Mild posterior disc bulge osteophyte complex with facet arthropathy superimposed on a developmentally narrow spinal canal resulting in moderate central canal stenosis and mild-moderate bilateral foraminal narrowing. L5-S1: Mild degenerative disc and facet disease superimposed on a developmentally narrow spinal canal with minimal narrowing of the thecal sac and bilateral foramina. SOFT TISSUES: Mild posterior subcutaneous and intramuscular edema. Small right renal cyst. 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 Increased size of large right L3 transverse process metastasis with large extraosseous soft tissue component invading the right paraspinal soft tissues, right neuroforamina, and right spinal canal. Multilevel degenerative disc disease as above. Electronically Signed: Karen Mcclelland MD at 10:56 EST ,
--- NOTE | 2023-07-04 07:26 | MRI_ITS ---
HISTORY: BONE CA. TECHNIQUE: Multiplanar and multisequence MR images of the pelvis were obtained before and after the intravenous administration of 23 cc Clariscan. 291 images. COMPARISON: [place] 06/24/2023, CT 03/28/2023. FINDINGS: BONE MARROW: Refer to MRI lumbar spine regarding large metastatic lesion of the right L3 transverse process with extraosseous soft tissue component and L5 metastatic lesion. Multiple T1 hypointense, STIR hyperintense, and enhancing lesions measuring 7 mm in the left S1 vertebra and 2.3 cm in the left femoral head neck junction, previously 1.1 cm. 8 mm, 1.5 cm, and 1.8 cm lesions in the right iliac which also appear mildly increased in size. No cortical breakthrough or enhancing extraosseous soft tissue component of the pelvic lesions. Degenerative sclerosis and bridging osteophytes of the bilateral sacroiliac joints with a superimposed metastatic lesion on the left. JOINT SPACES: No dislocation. No significant joint effusion. Mild degenerative change. SOFT TISSUES: Small fat-containing right inguinal hernia. No enhancing soft tissue mass or fluid collection. PELVIS: Prostatectomy. Diminutive or resected seminal vesicles. No significant free fluid or pathologically enlarged lymph nodes. Preservation of the presacral fat. MRI/Pelvis W/WO Contrast IMPRESSION: Multiple metastatic lesions of the lower lumbar spine, left sacrum, right iliac, and left proximal femur mildly progressed from prior CT. Electronically Signed: Karen Mcclelland MD at 11:12 EST ,
== END | disposition home or self-care (01) ==
PROVIDERS: Referring Provider Anesthesiology; Visit Provider Anesthesiology
DX: M54.16 Radiculopathy, lumbar region (principal); C79.51 Secondary malignant neoplasm of bone
CPT/HCPCS: 72158; 72197; A9575

== ENCOUNTER → 2023-07-10 | Outpatient (CLI) | payer BC, SELFPAY ==
--- OUTSIDE RECORDS SUMMARY | 2023-07-10 22:16 | XMS RPT_ITS | CCD ---
Author Name Unknown Address [address] [place] [address] Organization [facility] Care Team Providers Care Piano Machine Operator Name Role Phone ROSA ELENA MUNIZ, MANGO Stallworth Primary Care Physician [phone] Tristan Borrero DO Unavailable [phone] Nahid MUNIZ, PhD, Sukumar Unavailable Mango Khan MD Primary Care Provider [phone] Porter YEH, Sanna Unavailable Unavailable SUKUMAR WHITFIELD [...] Unavailable NAUMOFF, MANGO Primary Care Unavailable SUKUMAR WHITIFELD Attending Unavailable SUKUMAR WHITFIELD Referring Unavailable NAUMOFF, MANGO Primary Care Unavailable DARRIAN CROCKETT DO Primary Care Physician DARRIAN CROCKETT DO Attending Unavailable DARRIAN CROCKETT DO Primary Care Unavailable [place] BLOW MOLDER-MOLD MAINTENANCE TECHNICIAN, [facility] Attending Wilson KHAN MD, MANGO Stallworth Primary Care Unavailable Allergies Allergy Classification Reported Allergen(s) Allergy Type Date of Onset Reaction(s) Facility (6 sources) Ciprofloxacin; Translations: [ciprofloxacin] Drug Allergy 09-19-2021 couldn't walk, hurt feet. [facility] Medications Current Medications Medication Drug Class(es) [...] [degF] Sukumar Whitfield MD, PhD Work Phone: [facility] 09-19-2021 13:17-040 Body weight 111.72 kg Sukumar Whitfield MD, PhD Work Phone: [facility] 09-19-2021 13:17-040 Diastolic blood pressure 71 mm[Hg] Sukumar Whitfield MD, PhD Work Phone: [facility] 09-19-2021 13:17-040 Heart rate 63 /min Sukumar Whitfield MD, PhD Work Phone: [facility] 09-19-2021 13:17-0400 Respiratory rate 18 /min Sukumar Whitfield MD, PhD Work Phone: [facility] 09-19-2021 13:17-0400 SaO2% (BldA) [Mass fraction] 96 % Sukumar Whitfield MD, PhD Work Phone: [facility] 09-19-2021 13:17-0400 Systolic blood pressure 128 mm[Hg] Sukumar Whitfield MD, PhD Work Phone: [facility] Encounters Encounter Date Encounter Type Care Provider Facility Start: 01-21-2023 End: 01-26-2023 ambulatory DARRIAN CROCKETT DO Facility:[facility] Start: 01-21-2023 End: 01-26-2023 Encounter for general adult medical examination without abnormal findings DARRIAN CROCKETT DO Facility:[facility] Start: 01-21-2023 End: 01-25-2023 Outreach Lab DARRIAN CROCKETT DO [facility] Start: 03-08-2022 End: 03-09-2022 ambulatory [facility] BLOW MOLDER-MOLD MAINTENANCE TECHNICIAN Facility:[facility] Start: 03-08-2022 End: 03-08-2022 Patient encounter procedure [facility] BLOW MOLDER-MOLD MAINTENANCE TECHNICIAN [facility] Start: 10-12-2021 ambulatory SUKUMAR WHITFIELD [...] Start: 07-05-2020 Prostatic structure (body structure) KRUNAL [place] BLOW MOLDER-MOLD MAINTENANCE TECHNICIAN Plan of Treatment Date Care Activity Detail Author Start: 12-27-2021 Influenza vaccination INFLUENZA VACCINE (Season Ended) [facility] Start: 10-12-2021 End: 10-12-2021 Patient encounter procedure Department of Radiation Oncology Start: 10-10-2021 End: 10-10-2021 Patient encounter procedure 10/10/2021 Appointment Radiation Oncology Sukumar Whitfield MD, PhD [address] [place] [address] Department of Radiation Oncology Start: 10-08-2021 End: 10-08-2021 Patient encounter procedure 10/08/2021 Appointment Radiation Oncology Sukumar Whitfield MD, PhD [address] [place] [address] Department of Radiation Oncology Start: 10-05-2021 End: 10-05-2021 Patient encounter procedure 10/05/2021 Appointment Radiation Oncology Sukumar Whitfield MD, PhD [address] [place] [address] Department of Radiation Oncology Start: 10-03-2021 End: 10-03-2021 Patient encounter procedure 10/03/2021 Appointment Radiation Oncology Sukumar Whitfield MD, PhD [address] [place] [address] Department of Radiation Oncology Start: 2012 Prostate specific antigen measurement PROSTATE CANCER SCREENING DISCUSSION [facility] Start: 2012 Zoster vaccine hzv live for subcutaneous use ZOSTER (SHINGLES) VACCINE (1 of 2) [facility] Start: 12-02-2007 Colonoscopy COLORECTAL CANCER SCREENING DISCUSSION [facility] Start: 2002 Fasting lipid profile LIPID SCREENING [facility] Start: 1981 Third diphtheria, tetanus and acellular pertussis (DTaP) vaccination TDAP (ADULT) [facility] Start: 1980 Tetanus vaccination TETANUS [facility] Start: 1977 HIV screening HIV SCREENING DISCUSSION [facility] Start: 1968 PNEUMOCOCCAL VACCINE SERIES (1 - PCV) PNEUMOCOCCAL VACCINE SERIES (1 - PCV) [facility] Start: 12-02-1967 COVID-19 VACCINE (#1) COVID-19 VACCINE (#1) [facility] Start: 1962 Hepatitis C antibody, confirmatory test HEPATITIS C VIRUS SCREENING [facility] RAD ONC SIMULATION RAD ONC SIMULATION Imaging Routine Prostate cancer 09/20/2021 1:06 PM EDT [facility] Immunizations Immunization Date Immunization Notes Care Provider Fa cility 01-21-2023 tetanus toxoid, redu maxim diphtheria toxoid, and acellular pertussis vaccine, adsorbed; Translations: [Boostrix (Tdap)] DARRIAN CROCKETT DO [facility] 05-02-2017 pneumococcal polysaccharide vaccine, 23 valent [facility] BLOW MOLDER-MOLD MAINTENANCE TECHNICIAN [facility] Payers Date Payer Category Payer Unknown [id number] 2020 Unknown [employer] [place] [id number] 2020-Present [address] [place] [address] [id number] 2020 Unknown [id number] 1962 Unknown [id number] 1962 Unknown [id number] 1962 Unknown [id number] 1962 Unknown [id number] [id number] 1962 Unknown [id number] [id number] 1962 Unknown [id number] [id number] 1962 Unknown [id number] [id number] 1962 Unknown [id number] [id number] 1962 Unknown [id number] [id number] 1962 Unknown [id number] [id number] 1962 Unknown [id number] [id number] 1962 Unknown [id number] Social History Date Type Detail Facility Tobacco Nicotine Use: ew . Exposure to Tobacco Smoke Lives with someone who smokes. Type: Oral (Snuff, Chew). [facility] Clinical Notes 09-19-2021 to 10-12-2021 Sukumar Whitfield [...] RP dustin irradiation with Dr. Borrero at [facility], with plan to receive 20 fractions delivering [...] coverage and minimize dose to adjacent tissues. corporate quality assurance manager checks were performed on the plan. The patient was immobilized utilizing the [employer] stereotactic body frame. Cone beam CT centered at the isocenter was taken and very minor shifts were made after approval by in. The patient received treatment with 10 FFF [...] approximately 4-8 weeks. Sukumar Whitfield MD, PhD Item Processor Department of Radiation Oncology [facility] Work Phone: 10-12-2021 Procedure note Associated [...] RP dustin irradiation with Dr. Borrero at [facility], with plan to receive 20 fractions delivering [...] coverage and minimize dose to adjacent tissues. corporate quality assurance manager checks were performed on the plan. The patient was immobilized utilizing the [employer] stereotactic body frame. Cone beam CT centered [...] approximately 4-8 weeks. Sukumar Whitfield MD, PhD Item Processor Department of Radiation Oncology [facility] documented in this encounter [facility] 09-20-2021 Instructions Maryjane Steiner RN - [...] for a ticket each day. This includes practice administrator parking. You will be given information on reserved parking in the [place] garages. You will be given a special wrist band today that you can use to check in for your treatments. You do not need to go to registration before each radiation treatment. If you have appointments with any other department at [facility], you must go to registration prior to those appointments. Please call the radiation clinic at [phone] with any questions or concerns. You can also contact your physician via My Chart with any non-urgent issues. My Chart messages are only reviewed during regular business hours. documented in this encounter [facility] 09-20-2021 History of Presen t illness [...] further assistance needed at this time. Maryjane Steinre RN documented in this encounter [facility] 09-19-2021 History of Presen t illness Narrative Patient presents to consult with his . They live in [place], [place] and receive ADT and RT at [facility]. Past medical history, past surgical history, medications, and allergies reviewed with patient and updated in chart. He is here for consult regarding SBRT. Previous RT: + lower abdomen/prostate: Nov 2020- January 2021 at [facility] Previous/Current Chemotherapy/Immunotherapy: denies Pacemaker: denies ASSESSMENT [...] high risk prostate adenocarcinoma (pT3bN0, PSA 14.03, Clyman 5+5=10) status post radical prostatectomy on 07/06/20, [...] RP dustin irradiation with Dr. Borrero at [facility], with plan to receive 20 fractions delivering 40 Gy to the elective dustin region with 55 Gy boost to the gross nodes. He presents to [facility] today for consultation [...] RP dustin irradiation with Dr. Borrero at [facility], with plan to receive 20 fractions delivering 40 Gy to the elective dustin region with 55 Gy boost to the gross nodes. He presents to the [facility] Rad[facility] Clinic today for consultation [...] of his SBRT here at the [facility] with his fractionated EBRT at [facility], and patient would prefer concurrent, which is [...] for stereotactic radiation therapy planning followed by [id number] treatment for 5 fractions over 1.5 weeks. [...] coordination of care. Sukumar Whitfield MD, PhD Item Processor Radiation Oncology documented in this encounter [facility] Evaluation + Plan note Future Appointments Appointment Date:03/08/2021 08:30:00 AM Scheduled Provider:MANGO KHAN MD Location:[facility] Appointment Type:PC Wellness Annual [facility] Evaluation + Plan note Future Appointments Appointment Date:01/27/2024 08:30:00 AM Scheduled Provider:DARRIAN CROCKETT DO Location:[facility] Appointment Type:PC Wellness Annual [facility] Prostate cancer- Primary Malignant neoplasm of prostate [facility] N[facility] No data available for this section [facility] Hospital Discharge instructions No data available for this section [facility] Progress note No data available for this section [facility] Reason for referral (narrative)* (Routine) - Open Specialty Diagnoses / Procedures Referred By Contponcho t Referred To Contact Diagnoses Prostate cancer Procedures RAD ONC Sukumar Doss MD, PhD [address] [place] [address] Referral ID Status Reason Start Date Expiration Date Visits Re quested Visits Authorized [id number] Open 09/19/2021 10/14/2022 1 1 [facility] (Routine) - Open Specialty Diagnoses / Procedures Referred By Chase sherman Referred To Contact Diagnoses Prostate cancer Procedures RAD ONC Sukumar Doss MD, PhD [address] [place] [address] Referral ID Status Reason Start Date Expiration Date Visits Re quested Visits Authorized [id number] Open 09/19/2021 10/14/2022 1 1 [facility] Summary Purpose Family History No Family History Records Found No data available for this section No Family History Records Found Advance Directives No Advanced Directives Records FoundNo Advanced Directives Records Found Additional Source Comments Reason for Visit (unrecogniz ed section and content) Reason Comments Consult Care Teams (unrecognized sec tion and content) Piano Machine Operator Relationship Specialty Start Date End Date Mango Khan MD [address] [place] [address] PCP - General Family Medicine 09/19/21 Tristan Borrero DO [address] [facility] [address] [place] [address] Radiation Oncologist Radiation Oncology 09/19/21 Sukumar Whitfield MD, PhD [address] [place] [address] Radiation Oncologist Radiation Oncology 09/19/21 Sanna Buenrostro, RN Registered Nurse 09/19/21 Piano Machine Operator Relationship Specialty Start Date End Date Mango Khan MD [address] [place] [address] PCP - General Family Medicine 09/19/21 Tristan Borrero DO [address] [facility] [address] [place] [address] Radiation Oncologist Radiation Oncology 09/19/21 Sukumar Whitfield MD, PhD [address] [place] [address] Radiation Oncologist Radiation Oncology 09/19/21 Sanna Buenrostro, RN Registered Nurse 09/19/21 Piano Machine Operator Relationship Specialty Start Date End Date Mango Khan MD [address] [place] [address] PCP - General Family Medicine 09/19/21 Tristan [facility]rero DO [facility] [address] [address] Radiation Oncologist Radiation Oncology 09/19/21 Sukumar Whitfield MD, PhD [address] [place] [address] Radiation Oncologist Radiation Oncology 09/19/21 Sanna Buenrostro, RN Registered Nurse 09/19/21 (unrecognized sect ion and content) No Status Records FoundNo Status Records Found INFORMATION SOURCE (unrecogn ized section and content) DATE CREATED AUTHOR AUTHOR'S ORGANIZ ATION 01/31/2023 [facility] ([place]) Care Team (unrecognized sect ion and content) Care Team Personnel Name: MANGO KHAN MD Position: P4 Physician - Primary Care Member Role: Primary Care Physician Address: Address: [address] [place] [address] Phys[place], [place] [address] Care Team Related Persons Name: SANDHYA EDMONDSON Address: Home [address] [place] [phone] FOR RECORDS PERTAINING TO PATIENTS WHO ARE [...] BE BASED ON THE PRIMARY CLINICAL RECORDS. [employer] provides no warranty or guarantee of the accuracy or completeness of information in this document.
== END | disposition home or self-care (01) ==
LOC: LABSPEC 15:55
PROVIDERS: Referring Provider Surgery; Visit Provider Surgery
DX: Z45.2 Encounter for adjustment and management of vascular access device (principal)
CPT/HCPCS: 87081

== ENCOUNTER → 2023-07-23 | Outpatient (CLI) | payer BC, SELFPAY ==
--- NOTE | 2023-07-23 06:06 | ECHOD_ITS ---
Reason For Study: DYSPNEA Procedure This was a 2D Doppler, Color Flow transthoracic echocardiogram. Myocardial strain analysis was performed in this exam to aid in the assessment of cardiac function. Exam performed in department. Left Ventricle Normal LV size. Left ventricular systolic function is normal. Stage 1 diastolic dysfunction. No regional wall motion abnormalities noted. Right Ventricle Normal RV size. Normal systolic function. Atria Normal left atrium. Normal right atrium. Mitral Valve Normal mitral valve. Tricuspid Valve Normal tricuspid valve. Mild (1+) tricuspid valve insufficiency. Pulmonary artery systolic pressure is 30 mmHg. Aortic Valve Trisinus/trileaflet aortic valve. Moderate focal aortic valve calcification. Peak aortic valve gradient 22 mmHg. Mean aortic valve gradient 13 mmHg. Mild aortic stenosis. Mild (1+) aortic valve insufficiency. Pulmonic Valve Normal pulmonic valve. Mild (1+) pulmonic valve insufficiency. Great Vessels Normal aortic root. The pulmonary artery is normal size. Inferior vena cava collapse with respiration. Pericardium/Pleural No pericardial effusion. MMode/2D Measurements & Calculations LVIDd: 4.7 cm IVSd: 1.1 cm LVOT diam: 2.0 cm LVIDs: 3.2 cm LVPWd: 1.0 cm LVOT area: 3.3 cm2 RVDd: 3.3 cm FS: 31.6 % Ao root diam: 3.9 cm LAV(MOD-bp): 44.9 ml LVAd ap4: 39.1 cm2 LAV(MOD-bp) Indexed: 19.4 ml/m2 LVLd ap4: 9.6 cm LAV(MOD-sp2): 42.7 ml EDV(MOD-sp4): 129.1 ml LAV(MOD-sp4): 43.8 ml EDV(sp4-el): 135.3 ml LVAs ap4: 20.1 cm2 LVLs ap4: 7.6 cm ESV(MOD-sp4): 46.7 ml ESV(sp4-el): 45.1 ml EF(MOD-sp4): 63.8 % EF(sp4-el): 66.7 % SV(MOD-sp4): 82.4 ml SV(sp4-el): 90.2 ml LA A4 area: 17.4 cm2 LA dimension(2D): 3.5 cm RA A4 area: 13.6 cm2 TAPSE: 2.0 cm Time Measurements MV dec time: 0.21 sec Doppler Measurements & Calculations MV E max herberth: 72.1 cm/sec Lat Peak E' Herberth: 9.1 cm/sec Med Peak E' Herberth: 8.9 cm/sec MV A max herberth: 99.7 cm/sec E/E' lat: 7.9 E/E' med: 8.1 MV E/A: 0.72 Ao V2 max: 235.7 cm/sec AI max herberth: 443.0 cm/sec LV V1 max: 123.2 cm/sec Ao max P.2 mmHg AI max P.5 mmHg LV V1 max P.1 mmHg Ao V2 mean: 170.0 cm/sec LV V1 mean P.5 mmHg Ao mean P.1 mmHg AI dec slope: 158.3 cm/sec2 LV V1 mean: 88.8 cm/sec Ao V2 VTI: 52.9 cm AI P1/2t: 819.5 msec LV V1 VTI: 30.8 cm AV (velocity ratio): 0.58 RICARDO(I,D): 1.9 cm2 RICARDO(V,D): 1.7 cm2 SV(LVOT): 101.0 ml PA V2 max: 92.3 cm/sec PI end-d herberth: 105.3 cm/sec TR max herberth: 259.3 cm/sec TR max P.9 mmHg ECHO/Echo Complete Interpretation Summary Normal LV size. Left ventricular systolic function is normal. Moderate focal aortic valve calcification. Stage 1 diastolic dysfunction. Mean aortic valve gradient 13 mmHg. Mild aortic stenosis. Ordering Physician: Catalino Williamson/Juan M Diaz Referring Physician: DARRIAN CROCKETT Performed By: Ella Richard RDCS
--- NOTE | 2023-07-23 11:27 | STRESSREP ---
Stress Test Report Exercise myocardial perfusion stress test. 62-year-old man with a history of dyspnea Stress protocol: Resting EKG demonstrates normal sinus rhythm with a rate of 61 bpm resting blood pressure is 112/84 mmHg. The patient exercised according to the regular Joshua protocol for a total duration of 6 minutes attaining a maximum heart rate of 141 bpm which was 88% of maximum predicted heart rate; the maximum workload was 7.2 metabolic equivalents. At rest there were no ST or T wave changes noted to suggest ischemia and at peak exercise upsloping ST changes only were noted which did not meet the criteria for ischemia. No clinical angina was noted the test was terminated due to the target heart rate being achieved/fatigue. The peak blood pressure was 178/80 mmHg. Rate-pressure product was 24,700. Myocardial perfusion protocol. 14.7 mCi of technetium 99m sestamibi was injected at rest. The patient exercised according to regular Joshua protocol for total duration of 6 minutes and at peak exercise 44.4 mCi of technetium 99m sestamibi was injected stress images were obtained stress and rest images were reconstructed in comparing the short axis vertical long and horizontal long axis. Gated images were also obtained. Perfusion SPECT analysis: Review of the stress images demonstrate normal uptake of tracer noted in all areas of the myocardium, there is a small area in the apex with reduced perfusion. The resting images similarly demonstrate normal uptake of tracer noted in all areas of the myocardium with a small area in the apex with reduced perfusion suggestive of a previous apical infarct. Gated SPECT analysis: The gated ejection fraction is 60%. Conclusion: Normal exercise myocardial perfusion stress test at a moderate workload Preserved ejection fraction. Previous apical infarct cannot be excluded
== END | disposition home or self-care (01) ==
LOC: CVS 06:05
PROVIDERS: Referring Provider Nurse Practitioner Family; Visit Provider Nurse Practitioner Family
DX: R06.09 Other forms of dyspnea (principal); I50.33 Acute on chronic diastolic (congestive) heart failure; I48.92 Unspecified atrial flutter; C61 Malignant neoplasm of prostate
CPT/HCPCS: 78452; 93017; 93306; A9500; A4216

== ENCOUNTER 2023-08-26 05:57 | Day surgery (SDC) | payer BC, SELFPAY ==
[2023-08-26] VITALS (7 sets, daily range): BP systolic 117–146; BP diastolic 80–89; PULSE 63–67; RESP 16; TEMP 36.1–36.2; O2SAT 94–100; BMI 36.0
[2023-08-26] MEDS: Lactated Ringers 1,000 ML 15 ML IV (06:44)
--- NOTE | 2023-08-26 07:02 | PCM.HP.BLA ---
History and Physical Date of Admission: 08/26/23 Date of Service: 07/10/23 MR#: [id number] Acct: [id number] Name: ELMIRA EDMONDSON Rep #: [id number] : 1960 Provider: Dr. Matthew Medellin MD Age/Sex: 62/M Location: [facility] Status: Signed Intake Vital Signs 07/06/2406:59 07/09/2412:30 Height 5 ft 10 in 5 ft 10 in Weight: 255 lb 5 oz 256 lb BMI 36.6 36.7 BP 147/87 H 128/87 H Blood Pressure Location Lt brachial Rt brachial Position Sitting Sitting Respiration 18 17 Pulse 70 115 H Pulse Source Monitor Monitor Temp 97.0 F L 97.2 F L Temp Source Temporal Pulse Oximetry (%) 98 95 Oxygen Delivery Method room air room air Intake Visit Reasons: PORT PLACEMENT Chief Complaint: port placement Is patient in pain?: No Allergies ciprofloxacin [From Cipro] Allergy (Unknown, Verified 07/10/23 13:34) swelling Medications albuterol sulfate 90 mcg/actuation aerosol inhaler (Ventolin HFA) 2 puff inhalation Q6H PRN Asthma 09/07/18 [History Confirmed 07/10/23] albuterol sulfate 2.5 mg/3 mL (0.083 %) solution for nebulization 2.5 mg inhalation Q6H PRN PRN Asthma 06/28/20 [History Confirmed 07/10/23] montelukast 10 mg tablet 10 mg PO QHS asthma 07/05/20 [History Confirmed 07/10/23] fluticasone 100 mcg-salmeterol 50 mcg/dose blistr powdr for inhalation (Advair Diskus) 1 inh inhalation DAILY asthma 11/08/20 [History Confirmed 07/10/23] enzalutamide 40 mg capsule (Xtandi) 160 mg PO DAILY 06/07/22 [History Confirmed 07/10/23] flecainide 100 mg tablet See Rx Instructions .Route .COMPLEX #180 tabs 01/22/23 [Rx Confirmed 07/10/23] rivaroxaban 20 mg tablet 20 mg PO QHS BLOOD THINNER #90 tabs 05/29/23 [Rx Confirmed 07/10/23] metoprolol succinate 50 mg tablet,extended release 24 hr 50 mg PO DAILY bp #90 tabs 06/16/23 [Rx Confirmed 07/10/23] hydrocodone-acetaminophen 5-325mg 5mg-325mg 1 tab PO BID PRN 07/01/23 [History Confirmed 07/10/23] dexamethasone 4 mg tablet 8 mg (2 x 4 mg) PO .COMPLEX #12 tabs 07/07/23 [Rx Confirmed 07/10/23] duloxetine 30 mg capsule,delayed release 60 mg PO DAILY 07/07/23 [History Confirmed 07/10/23] lidocaine-prilocaine 2.5 %-2.5 % topical cream 1 applic topical ONCE PRN port access 30 days #30 grams 07/07/23 [Rx Confirmed 07/10/23] ondansetron 4 mg disintegrating tablet 4 mg PO Q8H PRN nausea and vomiting #30 tabs 07/07/23 [Rx Confirmed 07/10/23] PFSH Medical History (Updated 07/10/23 @ 15:[address] Matthew Medellin MD) Acute on chronic diastolic (congestive) heart failure Alcohol use Asthma Back pain Cardiology follow-up encounter DVT (deep venous thrombosis) Easy bruising Edema Encounter for education GERD (gastroesophageal reflux disease) History of COVID-19 History of echocardiogram History of kidney stones History of stress test Hypertension Injury of head and neck Intermittent palpitations Metastasis to bone Migraine headache Obesity Paroxysmal atrial flutter (08/18/18) Paroxysmal supraventricular tachycardia Prostate cancer Prostate cancer metastatic to intraabdominal lymph node Regional lymph node metastasis present Rising PSA following treatment for malignant neoplasm of prostate Wears contact lenses Wears hearing aid Surgical History History of amputation of finger of right hand History of arthroscopy of left knee History of bilateral inguinal hernia repair History of left inguinal hernia repair History of prostatectomy (07/05/20) Family History Mother CAD (coronary artery disease) Kidney diseaseFather Heart disease CHF Lung cancerUncle Myocardial infarction Paternal from [place] age 38 Social History household members: spouse current occupational status: employed Smoking Status: Never smoker Smokeless tobacco user: chewing tobacco and other alcohol intake: current alcohol intake frequency: a few times a week Alcohol type: beer details: 12 pack or more in a week substance use type: does not use caffeine: No HPI HPI HPI: Patient is a 62-year-old male who presents for consideration of port placement. Patient was diagnosed with prostate cancer in 2020 and underwent radical prostatectomy followed by radiation. He notes that following surgery his PSA started climbing. He then had metastatic prostate cancer confirmed in 2021 followed by serial radiation treatments both here in [place] as well as in [place] as part of the [facility] cancer network. Recent bone scan suggests vertebral metastasis and he has met with Dr. Granger who has recommended proceeding for hormonal chemotherapy, however, Mr. Edmondson states that he is still undecided and due to follow-up with oncology today regarding a decision. In the meantime he shares that he and his plan to travel to [place] for a vacation the first week of July. He makes it clear that he would not want to go through with any intervention until after this trip. Patient has no prior history of central line placement. Patient has no pacemaker or intracardiac defibrillator but he is diagnosed with atrial flutter and is experiencing increasing frequency of this arrhythmia. He is pending follow-up stress testing and echocardiogram with cardiology on 07/23/2023. Patient has no renal dysfunction. Mr. Edmondson does have a history of MRSA infection along his left flank some 6 to 7 years ago. He has also been treated for presumptive staph infections 1-2 times since because of a similar presentation. Mr. Edmondson is currently prescribed Xarelto for his history of atrial flutter. ROS General General: Yes weight change and fatigue; No appetite, colon cancer, breast cancer or weakness HEENT HEENT: No difficulty swallowing, eye injury, eye surgery, swollen glands or hoarseness Endo Endocrine: No thyroid disease, diabetes mellitus, thyroid cancer, Hair loss, heat intolerance or cold intolerance Skin Skin: No rash or changing moles Musc Musculoskeletal: Yes back problems; No arthritis, rheumatoid arthritis, gout or joint pain Cardio Cardiovascular: Yes atrial fibrillation; No murmur, pacemaker, heart disease, high blood pressure, heart attack, heart stent, palpitations, shortness of breat with exertion or chest pain Psych Psychiatric: No depression, anxiety or hearing voices Resp Respiratory: Yes shortness of breath, No sleep apnea, No cough, No COPD, Yes asthma, No emphysema and No wheezing Gastro Gastrointestinal: No abdominal pain, No nausea or vomiting, No diarrhea, No constipation, No blood in stool, Yes acid reflux, No hemorrhoids, No ulcers, No gallbladder problem and No black,tarry stools Leroy Hematologic: Yes blood thinners, No blood disorders, No bleeding, No anemia and No blood clots Neuro Neurologic: No system reviewed and no additional complaints, except as documented, No as per HPI, No abnormal gait, No abnormal hearing, No abnormal movements, No abnormal speech, No behavioral changes, No burning sensations, No confusion, No convulsions, No disequilibrium, No dizziness, No localized weakness, No frequent falls, No headache(s), No lack of coordination, No loss of vision, No memory loss, No numbness, No other visual disturbances, No radicular pain, No restless legs, No sensory deficit, No syncope, No tingling, No tremor(s), No weakness and No other Exam Const General: cooperative and anxious Orientation: alert, awake and oriented x3 Neck Other: No scars or rashes Chest Other: No scars or rashes Assessment and Plan Assessment and Plan (1) Encounter for insertion of venous access port: Status: Acute Comment: Patient is a 62-year-old male with evidence of bony mets from prostate cancer first diagnosed in 2020. He is currently on the fence as to whether or not he wants to proceed with chemotherapy as recommended by oncology following serial rounds of adjuvant radiation therapy. I held a lengthy conversation with patient and his suggesting that I would not want to proceed with port placement if he is disinclined to proceed with chemotherapy. This is largely due to wanting to justify the inherent risks of the procedure with the expected benefit of having durable venous access for the use during chemotherapy. and Mrs. Edmondson expressed understanding of this rationale. In the event that patient decides to proceed with chemotherapy I did hold a discussion regarding the advantages of ports, their infection risk, and the expected procedure/recovery involved with a port placement. Mr. 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 Given the seriousness of this past time I suggest that we could simply plan for a left-sided port placement to try to circumvent any issues. Lastly, given patient's history of MRSA infection I would like to screen him today for MRSA colonization of the nares and complete treatment if found to be positive. He agrees with this course of action and we will obtain this testing today. Plan: ? Follow-up MRSA swab results ? Follow-up patient's final decision regarding possible port placement and if patient decides in favor of proceeding with port will plan for left, possible right internal jugular Port-A-Cath placement in the OR (2) Metastasis to bone: Status: Chronic I have examined the patient the following changes are noted: Patient has agreed to go forward with chemotherapy as recommended by oncology and thus presents today for left possible right Port-A-Cath placement. He denies any interval health updates, but after nursing raises the issue does confess to a musculoskeletal injury of his left shoulder. On exam there are no new rashes or lesions of the upper chest bilaterally. Procedure and post procedure expectations were reviewed?including a overview of what to expect with accessing the port and chemotherapy as well as postoperative care instructions. All questions were answered from patient and spouse will now proceed to the OR for port placement using ultrasound and fluoroscopic guidance.
[2023-08-26] MEDS: Cefazolin 2 GM in 0.9% Normal Saline (100mL Bag) 100 ML IV (07:31)
[2023-08-26] MEDS: Bupiv/Epi 0.25% 30 ML Vial (08:46)
--- NOTE | 2023-08-26 08:54 | OP.PCM_ITS ---
Report of Operation Date of Procedure: 08/26/23 Pre-Operative Diagnosis: Metastatic prostate cancer requiring Durable venous ac cess for chemotherapy Post-Operative Diagnosis: Same Surgery/Procedure Performed:: Ultrasound and fluoroscopic guidance of left internal jugular port placement Surgeon: Matthew Medellin block hand: None Type of Anesthesia: General/Supplemental Anesthesiologist: Zeke Quintanilla Specimen's removed: None Description of Procedure: After appropriate identification in the preoperative holding area the patient was brought to the operating room. There [he/she] was administered preoperative antibiotics and positioned supine on the operating room table. Once sedation was begun, the upper chest and lower cervical region were prepped and draped in usual sterile fashion. A formal timeout was then conducted to confirm both the patient and procedure. Ultrasound was used to localize the [right/left] internal jugular vein. Then a wheal of [type of local anesthetic] was raised superficially in this location and the vein was accessed under direct ultrasound guidance using a Seldinger technique and micro access kit to place a guidewire. The position of the guidewire was confirmed with fluoroscopy. The micro access guidewire was exchanged for standard 035 guidewire using provided sheath. Next the position of the port pocket was determined and again local anesthetic was used to anesthetize the area of both the pocket and the tunneling cephalad. A transverse incision approximately 3 cm in width was made down through the subcutaneous tissue. Selective electrocautery was used to obtain hemostasis. Then with blunt dissection the port pocket was developed. The catheter was connected to the tunneler and was tunneled up to the position of the guidewire. Here the dilator and peel-away sheath were placed over the guidewire and the guidewire was removed. Position was again confirmed with fluoroscopy. The catheter length was estimated based on the external placement of a hemostat to approximate the level of the cyril and the cavoatrial junction. The catheter was then fed into the sheath and slowly the sheath was peeled away as the catheter was inserted fully into the neck. Back in the chest the excess catheter was trimmed and the port was connected to the catheter. The port was tied into the pocket using [2-0 Prolene/3-0 Vicryl]. Function was then tested using sterile saline on a Morales needle. It was locked with [2.5] mL of heparinized saline (concentration 50U/5mL). The port pocket was closed with a deep dermal stitch using a running 3-0 Vicryl followed by 4-0 Monocryl subcuticular stitch. The 1 cm incision in the neck was closed with a single interrupted subcuticular stitch using 4-0 Monocryl. Dermabond was applied as a dressing. Patient was then aroused from the sedation and taken to PACU for ongoing recovery were a portable chest x-ray was obtained to confirm port positioning and exclude any pneumothorax. Grafts/Implants Used: PowerPort ISP MRI implantable reference [id number] Lot [id number]
--- NOTE | 2023-08-26 08:54 | PCM.OPRPT ---
Report of Operation Date of Procedure: 08/26/23 Pre-Operative Diagnosis: Metastatic prostate cancer requiring Durable venous access for chemotherapy Post-Operative Diagnosis: Same Surgery/Procedure Performed:: Ultrasound and fluoroscopic guidance of left internal jugular port placement Surgeon: Matthew Medellin principal java developer: None Type of Anesthesia: General/Supplemental Anesthesiologist: Zeke Quintanilla Specimen's removed: None Description of Procedure: After appropriate identification in the preoperative holding area the patient was brought to the operating room. There he was administered preoperative antibiotics and positioned supine on the operating room table. Preliminary ultrasound exam was used to confirm patency of the bilateral internal jugular veins. It was noted that the patient's left internal jugular vein was smaller in diameter than the right, however, patient had a strong preference for a left-sided port placement given his hobby shooting firearms. Therefore we proceeded with a left-sided attempt. Once sedation was begun, the upper chest and lower cervical region were prepped and draped in usual sterile fashion. A formal timeout was then conducted to confirm both the patient and procedure. Ultrasound was used to localize the left internal jugular vein. Then a wheal of 0.25% bupivacaine with epinephrine was raised superficially in this location and the vein was accessed under direct ultrasound guidance using a Seldinger technique and micro access kit to place a guidewire. Unfortunately in the guidewire kinked and the needle was withdrawn. I reattempted with the standard finder needle and guidewire. This time there was resistance to threading the wire and upon using fluoroscopy I found it doubling back upon itself toward the subclavian. Thus under live fluoroscopy I was able to redirect the wire towards the superior vena cava. Next the position of the port pocket was determined and again local anesthetic was used to anesthetize the area of both the pocket and the tunneling cephalad. A transverse incision 3 cm in width was made down through the subcutaneous tissue. Selective electrocautery was used to obtain hemostasis. Then with blunt dissection the port pocket was developed. The catheter was connected to the tunneler and was tunneled up to the position of the guidewire. Here the dilator and peel-away sheath were placed over the guidewire under fluoroscopic visualization and the guidewire was removed. However, once again I encountered resistance with feeding the catheter through the sheath as it appeared unable to make the turn towards the superior vena cava. I chose to obtain a longer hydrophilic 035 guidewire and passed this through the catheter lumen under fluoroscopic visualization after slightly withdrawing the sheath to improve push ability of the catheter. This took some manipulation but I was able to direct the wire into the SVC and then advanced the catheter over the wire. Position was again confirmed with x-ray. The catheter length was estimated based on the external placement of a hemostat to approximate the level of the cyril and the cavoatrial junction. The catheter appeared to be in appropriate depth and the wire was withdrawn under fluoroscopy to ensure that the catheter did not back out. Back in the chest the excess catheter was trimmed and the port was connected to the catheter. The port was tied into the pocket using 3-0 Vicryl. Function was then tested using sterile saline on a Morales needle. It was locked with 3 mL of heparinized saline (concentration 50U/5mL). The port pocket was closed with a deep dermal stitch using a running 3-0 Vicryl followed by 4-0 Monocryl subcuticular stitch. The 1 cm incision in the neck was closed with a single interrupted subcuticular stitch using 4-0 Monocryl. Dermabond was applied as a dressing. Patient was then aroused from the sedation and taken to PACU for ongoing recovery were a portable chest x-ray was obtained to confirm port positioning and exclude any pneumothorax. Grafts/Implants Used: PowerPort ISP MRI implantable reference [id number] Lot [id number] Complications None Admit VTE Documentation VTE Mechan Device Prophylaxis: SCD's Procedures Cardiovascular CF Procedures [id number]: [id number] Insert tunneled cv cath
--- NOTE | 2023-08-26 08:56 | EX.PCM.DISCH ---
Discharge Instructions Diet Discharge Diet: No restrictions Activity Discharge Activity: May Shower May shower in (days): 1 Ice area for (Minutes): 20 Additional Activity Instructions:: Limit the activity by the nearest upper extremity for 48 hours postop Dressing / Incision Call your doctor if your incision/area has: Increased Pain/ Swelling, Increased Redness, Foul Smelling Discharge and Swelling at the incision site Call your doctor if you observe: Fever of 101 or Higher Remove Dressing in: do not remove dressing (Dermabond (surgical glue) expected to dissolve spontaneously within 7 to 10 days postop using regular showering) Cleanse incision/area with: Soap & Water Follow Up Care Test Results: Test results from this visit will be discussed in further detail at your follow-up appointment, if applicable. Discharge Plan Admission Primary Reason for Your Visit: Port placement Attending Provider: Matthew Medellin Primary Care Provider: Carlitos Brewer Instructions Additional Instructions / Restrictions: Resume Xarelto in 48 hours post procedure Discharge Orders/Prescriptions Prescriptions: Continued albuterol sulfate [Ventolin HFA] 90 mcg/actuation HFA aerosol inhaler 2 puff INHALATION Q6H PRN (Reason: Asthma) Xtandi 40 mg capsule 160 mg PO DAILY lidocaine-prilocaine 2.5-2.5 % cream 1 applic topical ONCE PRN (Reason: port access) 30 Days Qty: 30 2RF dexamethasone 4 mg tablet 8 mg PO .COMPLEX Qty: 12 5RF Rx Instructions: 8 mg orally twice daily ONLY the day before, day of, and day after chemotherapy ondansetron 4 mg tablet,disintegrating 4 mg PO Q8H PRN (Reason: nausea and vomiting) Qty: 30 2RF oxycodone 10 mg tablet 10 mg PO Q8H PRN (Reason: pain) albuterol sulfate 2.5 MG/3 ML solution for nebulization 2.5 mg INHALATION Q6H PRN PRN (Reason: Asthma) montelukast 10 MG tablet 10 mg PO QHS fluticasone propion-salmeterol [Advair Diskus] 100-50 mcg/dose blister with device 1 inh INHALATION BID Excedrin Migraine 250-250-65 mg tablet 1 tab PO Q6H PRN PRN (Reason: pain) calcium carbonate [Calcium 600] 600 mg calcium (1,500 mg) tablet 600 mg PO DAILY cholecalciferol (vitamin D3) [Vitamin D3] 50 mcg (2,000 unit) capsule 50 mcg PO DAILY famotidine [Acid Meat Stringer (famotidine)] 20 mg tablet 20 mg PO DAILY PRN PRN (Reason: GERD) flecainide 100 mg tablet See Rx Instructions .ROUTE .COMPLEX Qty: 180 3RF Dose Instruction: TAKE 1 TABLET TWICE A DAY Rx Instructions: TAKE 1 TABLET TWICE A DAY rivaroxaban 20 mg tablet 20 mg PO QHS Qty: 90 3RF metoprolol succinate 50 mg tablet extended release 24 hr 50 mg PO DAILY Qty: 90 3RF Referrals / Follow Up: Carlitos Brewer DO [Primary Care Provider] - Disposition Disposition (needs filled in before D/C Order can be placed): Home, Self Care
--- NOTE | 2023-08-26 08:59 | RAD_ITS ---
STUDY: X-RAY CHEST REASON FOR EXAM: Male, 62 years old. Status post line placement TECHNIQUE: Single AP portable view of the chest. COMPARISON: None. FINDINGS: A left-sided Port-A-Cath has been inserted with the tip at the junction of the superior vena cava and right atrium. The lungs are clear and expanded. There is no demonstrated pleural abnormality. Normal size heart. Normal mediastinum and delfina. Normal visualized pulmonary arteries. There is atherosclerotic tortuosity of the aortic arch and descending thoracic aorta. There are diffuse degenerative changes of the visualized thoracic spine. Normal visualized ribs, clavicles, and shoulders. There is no demonstrated abnormality of the visualized soft tissue structures of the upper abdomen. RAD/CXR for Line Placement IMPRESSION: A left-sided tati catheter has been placed with the tip at the junction of the superior vena cava and right atrium. Electronically Signed: Amaury Velasco MD at 9:32 EDT ,
== END 2023-08-26 10:05 | disposition home or self-care (01) ==
LOC: SDC 06:02 → AC 06:02
PROVIDERS: Visit Provider Surgery
PROC: (CPT 36561; principal; 2023-08-26 07:15)
DX: Z45.2 Encounter for adjustment and management of vascular access device (principal); I48.92 Unspecified atrial flutter; I48.91 Unspecified atrial fibrillation; C61 Malignant neoplasm of prostate; Z92.3 Personal history of irradiation; I10 Essential (primary) hypertension; F17.220 Nicotine dependence, chewing tobacco, uncomplicated; Z90.79 Acquired absence of other genital organ(s); Z79.01 Long term (current) use of anticoagulants; Z86.14 Personal history of Methicillin resistant Staphylococcus aureus infection; Z79.899 Other long term (current) drug therapy; J45.909 Unspecified asthma, uncomplicated; K21.9 Gastro-esophageal reflux disease without esophagitis
CPT/HCPCS: 36561; 00532; 71045; 77001; C1894; C1788; J2405

== ENCOUNTER 2023-09-10 15:59 | Emergency (ER) | payer BC, SELFPAY ==
[2023-09-10] VITALS (7 sets, daily range): BP systolic 110–126; BP diastolic 77–86; PULSE 68–117; RESP 18–22; TEMP 35.6–36.2; O2SAT 96–99; BMI 36.6
--- NOTE | 2023-09-10 16:14 | ED.VIS.DYS ---
HPI History of Present Illness Chief Complaint: Shortness of Breath Informant: patient Onset/Context/Timing Onset: Today Context: gradual Timing: Continuous Quality: Positive for Dyspnea on exertion Worsened by: Exertion Relieved by: Rest Associated Symptoms Negative for cough Chest Pain: Positive for None Narrative Narrative: Patient presents with shortness of breath that became worse today. Patient states it is gradually gotten worse over the past few days. Patient states that he got up out of bed this morning walked approximately 40 feet to his kitchen and was out of breath. Patient admits to some palpitations. Patient states he has a history of paroxysmal atrial flutter and felt like his heart was fluttering this morning. Patient had his first dose of chemotherapy last week. Patient states he had a bone strengthening infusion 2 days ago. Patient admits to some subjective chills but denies any fevers. Patient denies any cough. Patient admits to some rhinorrhea. PE Risk Factors: Positive for Cancer; Negative for OCP + Smoking + > 35, Prior DVT or PE, Recent immobilization, Recent surgery or Recent travel [facility] Medical History History of steroid therapy Arthritis Dietary restriction Gastric reflux Patient uses snuff Shortness of breath on exertion History of pain when walking History of edema History of atrial fibrillation Encounter for education Metastasis to bone Regional lymph node metastasis present Rising PSA following treatment for malignant neoplasm of prostate Prostate cancer metastatic to intraabdominal lymph node Edema History of COVID-19 Wears hearing aid Wears contact lenses Alcohol use DVT (deep venous thrombosis) Back pain Injury of head and neck Migraine headache History of echocardiogram History of stress test Cardiology follow-up encounter Hypertension Prostate cancer Acute on chronic diastolic (congestive) heart failure Paroxysmal supraventricular tachycardia Asthma Paroxysmal atrial flutter (08/18/18) Intermittent palpitations Obesity Home Medications ?Medication ?Instructions ?Recorded ?Last Taken ?Type albuterol sulfate 90 mcg/actuation 2 puff inhalation Q6H PRN Asthma 09/07/18 11/15/20 06:00 History aerosol inhaler (Ventolin HFA) albuterol sulfate 2.5 mg/3 mL 2.5 mg inhalation Q6H PRN PRN 06/28/20 08/25/23 History (0.083 %) solution for nebulization Asthma montelukast 10 mg tablet 10 mg PO QHS asthma 07/05/20 09/09/23 History flecainide 100 mg tablet See Rx Instructions .Route 01/22/23 09/10/23 Rx .COMPLEX #180 tabs rivaroxaban 20 mg tablet 20 mg PO QHS BLOOD THINNER #90 tabs 05/29/23 09/09/23 Rx metoprolol succinate 50 mg 50 mg PO DAILY bp #90 tabs 06/16/23 09/10/23 Rx tablet,extended release 24 hr dexamethasone 4 mg tablet 8 mg (2 x 4 mg) PO .COMPLEX #12 07/07/23 09/02/23 Rx tabs lidocaine-prilocaine 2.5 %-2.5 % 1 applic topical ONCE PRN port 07/07/23 Unknown Rx topical cream access 30 days #30 grams ondansetron 4 mg disintegrating 4 mg PO Q8H PRN nausea and 07/07/23 Unknown Rx tablet vomiting #30 tabs oxycodone 10 mg tablet 10 mg PO Q8H PRN pain 07/21/23 08/17/23 History fluticasone 100 mcg-salmeterol 50 1 inh inhalation BID asthma 08/11/23 09/10/23 History mcg/dose blistr powdr for inhalation (Advair Diskus) calcium carbonate (Calcium 600) 600 mg PO DAILY 08/15/23 09/09/23 History cholecalciferol (vitamin D3) 50 50 mcg PO DAILY 08/15/23 09/09/23 History mcg (2,000 unit) capsule (Vitamin D3) famotidine 20 mg tablet (Acid 20 mg PO DAILY PRN PRN GERD 08/15/23 09/09/23 History Heavy Forger (famotidine)) darolutamide 300 mg tablet (Nubeqa) 600 mg PO BID 09/10/23 09/10/23 History levofloxacin 500 mg tablet 500 mg PO DAILY #7 tabs 09/10/23 Unknown Rx Allergy/AdvReac Type Severity Reaction Status Date / Time ciprofloxacin (From Cipro) Allergy Unknown swelling Verified 09/10/23 16:00 Family History Mother CAD (coronary artery disease) Kidney disease Father Heart disease CHF Lung cancer Uncle Myocardial infarction Paternal from [place] age 38 Surgical History Hx of cystoscopy History of prostatectomy (07/05/20) History of amputation of finger of right hand History of left inguinal hernia repair History of bilateral inguinal hernia repair History of arthroscopy of left knee Social History household members: spouse current occupational status: employed Smoking Status: Never smoker Smokeless tobacco user: chewing tobacco and other alcohol intake: current alcohol intake frequency: a few times a week Alcohol type: beer details: 12 pack or more in a week substance use type: does not use caffeine: No ROS ROS ED Constitutional Constitutional ED: Reports chills; Denies fever(s) Eyes Eyes: Denies blurry vision or change in vision ENT ENT ED: Reports rhinorrhea; Denies sore throat Cardiovascular Cardiovascular: Reports palpitations; Denies chest pain Respiratory/Chest Respiratory/Chest: Reports dyspnea; Denies cough Gastrointestinal Gastrointestinal: Denies nausea or vomiting Genitourinary Genitourinary ED: Denies dysuria or hematuria Musculoskeletal Musculoskeletal: Denies back pain or neck pain Integumentary Reports rash; Denies abscess Neurologic Neurologic: Denies headache(s) or weakness Allergic/Immunologic Allergic/Immunologic ED: Denies mouth swelling or urticaria EXAM Physical Exam Const Vital Signs: 09/10/23 16:00 09/10/23 16:25 09/10/23 16:59 Temperature 97.2 F L Temperature Source Temporal Pulse Rate 68 Respiratory Rate 18 Respiratory Effort Short of Breath Respiratory Depth Normal Respiratory Pattern Normal Blood Pressure 115/83 H Blood Pressure Mean 93 Pulse Ox 99 98 Oxygen Delivery Method Room Air Room Air Room Air 09/10/23 18:00 09/10/23 19:06 09/10/23 19:08 Temperature 96.1 F L 96.1 F L Temperature Source Temporal Pulse Rate 117 H 110 H 106 H Respiratory Rate 22 H 20 H 19 H Respiratory Effort Respiratory Depth Respiratory Pattern Blood Pressure 110/80 125/77 H 126/77 H Blood Pressure Mean 90 93 93 Pulse Ox 96 96 97 Oxygen Delivery Method Room Air Room Air Positive well nourished and well developed General Appearance ED: well developed and NAD HEENT Reports moist mucous membranes Neck supple and no meningeal signs Resp normal respiratory effort and clear to auscultation bilaterally Cardio Rate: tachycardic Rhythm: abnormal rhythm irregularly irregular GI non-tender and non-distended Palpation: soft Extremity normal to inspection General Extremety ED: Negative for edema or tenderness General Extremity: Negative for edema Neuro oriented x3 and CN's II-XII intact bilaterally Shalini Coma Scale: document GCS findings Spontaneous Obeys Commands Oriented 15 Sensorium / Orientation: alert Speech: speech normal Motor Exam: general weakness Psych mental status grossly normal MDM MDM MDM Narrative Medical decision making narrative: Differential diagnosis includes pulmonary embolism, pneumonia, pneumothorax, cardiac dysrhythmia, cardiac ischemia, congestive heart failure, and anxiety. EKG will be obtained to assess for cardiac dysrhythmia and cardiac ischemia. CT of the chest will be obtained to assess for pulmonary embolism and aortic dissection. CBC will be obtained to assess for leukocytosis and anemia. Basic metabolic profile will be obtained to assess for electrolyte abnormality and renal function. BNP will be obtained to assess for congestive heart failure. High-sensitivity troponin will be obtained to assess for cardiac ischemia. Lab Data Attestation: I reviewed the patient's lab results. Lab results narrative: CBC was reviewed. White blood cell count was low at 0.6. Hemoglobin was stable at 11.9 and hematocrit was 35.3. Platelets are normal. Absolute neutrophil count was 0.1. Basic metabolic profile was reviewed and was essentially within normal limits. High-sensitivity troponin was reviewed and was normal at 15. BNP was reviewed and was slightly elevated at 176.9. Labs: Laboratory Results - last 24 hr 09/10/23 16:47 WBC 0.6 L* RBC 3.98 L Hgb 11.9 L Hct 35.3 L MCV 88.7 MCH 29.9 MCHC 33.7 RDW Std Deviation 39.3 RDW Coeff of Emily 12.4 Plt Count 218 MPV 9.9 Immature Gran % (Auto) 0.000 Neut % (Auto) 10.0 L Lymph % (Auto) 63.3 H [place] % (Auto) 25.0 H Eos % (Auto) 0.0 Baso % (Auto) 1.7 H Absolute Neuts (auto) 0.1 L Absolute Lymphs (auto) 0.38 L Nucleated RBC % 25.0 H Differential Comment SCANNED Diff Path Review May foll Sodium 137 Potassium 3.6 Chloride 109 H Carbon Dioxide 25.0 Anion Gap 3 L BUN 13 Creatinine 0.72 Estim Creat Clear Calc 138.95 Est GFR (MDRD) Af Amer 143 Est GFR (MDRD) Non-Af 118 BUN/Creatinine Ratio 18.1 Glucose 114 H Calcium 8.5 Troponin I High Sens 15 B-Natriuretic Peptide 176.9 H Radiography CTA PE Study: No Evidence of PE and No Evidence of Dissection Diagnostic Testing: Clinical Impression(s) from Imaging Studies Chest CTA 09/10/23 16:30 IMPRESSION: No pulmonary embolism or evidence of acute airspace disease. Mild aortic valvular calcifications and mild coronary atherosclerosis. Nonspecific prominent right hilar 1.3 cm lymph node. Electronically Signed: Scotty Marion MD at 18:07 EDT , CT of the chest was obtained. There is no evidence of pulmonary embolism or airspace disease. There is a right hilar lymph node noted. There is no acute abnormality noted. This was interpreted by the radiologist was also independently reviewed by myself. EKG Initial EKG: Interpretation: Atrial Fibrillation and Non-Specific ST Changes Comments: EKG was obtained. On my independent interpretation, it shows atrial fibrillation with a rate of 109. QRS interval was normal at 112 ms. QTc interval was normal at 479 ms. There is borderline left axis deviation at -19. There are no acute ST or T wave changes noted. Prior EKG tracings: available for review Prior: Changed (Compared to the previous EKG, the atrial fibrillation is new.) Treatment and Re-Evaluation :: Patient was advised of his findings. Patient states he has a history of paroxysmal atrial fibrillation. Case was discussed with Dr. Maldonado. He recommended starting the patient on Cipro. Patient is allergic to Cipro. Patient states that his feet swell up and become raw. Patient does not think he is ever had Levaquin before. Patient was given a prescription for Levaquin instead. Patient was given a dose here. Patient wants to go home. Patient was instructed to get plenty of rest. Patient was given a prescription for Cipro. Patient was instructed to follow-up with his oncologist in 3 to 5 days. Patient was instructed return for any fevers. Patient was instructed return if worse in any way. Patient understood and was agreeable with the plan. All questions were answered. Discharge Plan Triage Chief Complaint: Shortness of Breath ED Provider: Alex Varma Dx/Rx/DC Orders Clinical Impression: Dyspnea on exertion, Paroxysmal atrial flutter, Neutropenia Instructions: Neutropenia, ED Dyspnea Prescriptions: New levofloxacin 500 mg tablet 500 mg PO DAILY Qty: 7 0RF No Action albuterol sulfate [Ventolin HFA] 90 mcg/actuation HFA aerosol inhaler 2 puff INHALATION Q6H PRN (Reason: Asthma) lidocaine-prilocaine 2.5-2.5 % cream 1 applic topical ONCE PRN (Reason: port access) 30 Days Qty: 30 2RF dexamethasone 4 mg tablet 8 mg PO .COMPLEX Qty: 12 5RF Rx Instructions: 8 mg orally twice daily ONLY the day before, day of, and day after chemotherapy ondansetron 4 mg tablet,disintegrating 4 mg PO Q8H PRN (Reason: nausea and vomiting) Qty: 30 2RF oxycodone 10 mg tablet 10 mg PO Q8H PRN (Reason: pain) albuterol sulfate 2.5 MG/3 ML solution for nebulization 2.5 mg INHALATION Q6H PRN PRN (Reason: Asthma) montelukast 10 MG tablet 10 mg PO QHS fluticasone propion-salmeterol [Advair Diskus] 100-50 mcg/dose blister with device 1 inh INHALATION BID calcium carbonate [Calcium 600] 600 mg calcium (1,500 mg) tablet 600 mg PO DAILY cholecalciferol (vitamin D3) [Vitamin D3] 50 mcg (2,000 unit) capsule 50 mcg PO DAILY famotidine [Acid Heavy Forger (famotidine)] 20 mg tablet 20 mg PO DAILY PRN PRN (Reason: GERD) Nubeqa 300 mg tablet 600 mg PO BID flecainide 100 mg tablet See Rx Instructions .ROUTE .COMPLEX Qty: 180 3RF Dose Instruction: TAKE 1 TABLET TWICE A DAY Rx Instructions: TAKE 1 TABLET TWICE A DAY rivaroxaban 20 mg tablet 20 mg PO QHS Qty: 90 3RF metoprolol succinate 50 mg tablet extended release 24 hr 50 mg PO DAILY Qty: 90 3RF Primary Care Provider: Carlitos Brewer Referrals: Carlitos Brewer DO [Primary Care Provider] - Print Language: Sinhala
--- NOTE | 2023-09-10 16:30 | EKG12_ITS ---
Test Reason : SOB Blood Pressure : / mmHG Vent. Rate : 109 BPM Atrial Rate : 000 BPM P-R Int : 000 ms QRS Dur : 112 ms QT Int : 356 ms P-R-T Axes : 000 -19 052 degrees QTc Int : 479 ms Atrial fibrillation with rapid ventricular response Cannot rule out Inferior infarct , age undetermined Abnormal ECG Confirmed by Matthew Vasquez ([id number]), online editor MYNOR LOVE ([id number]) on 09/15/2023 9:43:38 AM Referred By: Confirmed By:Matthew Vasquez
--- NOTE | 2023-09-10 16:30 | CT_ITS ---
STUDY: CTA CHEST REASON FOR EXAM: Male, 62 years old. Dyspnea RADIATION DOSAGE (If Supplied By Facility): CTDIvol = ( 12.64 ) mGy, DLP = ( 521.47 ) mGycm TECHNIQUE: The examination was performed with the intravenous administration of IV 100mL Isovue-370. Post-processing of the angiographic images was performed, with multiplanar reformation and 3D reconstruction. Individualized dose optimization techniques were used for this CT. COMPARISON: Chest radiograph July 30, 2023. FINDINGS: Left chest port tip projects at the distal superior vena cava. Normal enhancement of the bilateral peripheral pulmonary arteries. There is no demonstrated pulmonary embolism. No main pulmonary arterial enlargement. No aortic dissection or aneurysmal dilatation. Aortic valvular calcifications are noted. No cardiomegaly or pericardial effusion. Mild calcified coronary atherosclerosis. No mediastinal adenopathy. Right hilar 1.3 cm nonspecific lymph node. Other subcentimeter bilateral hilar lymph nodes are present.. No endobronchial lesion. No airspace consolidation, effusion, or pneumothorax. Normal osseous structures. Mild bilateral gynecomastia. Multiple hepatic cysts. CT/CTA Chest W/WO Contrast IMPRESSION: No pulmonary embolism or evidence of acute airspace disease. Mild aortic valvular calcifications and mild coronary atherosclerosis. Nonspecific prominent right hilar 1.3 cm lymph node. Electronically Signed: Scotty Marion MD at 18:07 EDT ,
[2023-09-10 16:58] LABS: Absolute Lymphocyte Count 0.38 X10^3/uL (0.83-4.51); Absolute Neutrophil Count 0.1 X10^3/uL (2.0-7.7); Basophil# 0.01 X10^3/uL; Basophil% 1.7 % (0-1); Hematocrit 35.3 % (40-54); Hemoglobin 11.9 g/dL (13.0-16.5); Lymphocyte # 0.38 X10^3/ul (0.83-4.51); Lymphocyte % 63.3 % (19-41); Mean Corp Hgb Conc 33.7 g/dL (32-36); Mean Corpuscular Hgb 29.9 pg (27.0-32.0); Mean Corpuscular Volume 88.7 fL (80-94); Mean Platelet Vol. 9.9 fl (6.2-12.0); Monocyte# 0.15 X10^3/uL; Neutrophil # 0.06 X10^3/uL (2.7-7.7); POSITIVE COUNT YES; POSITIVE DIFFERENTIAL YES; POSITIVE MORPHOLOGY YES; Platelet Count 218 K/mm3 (150-450); RBC Distribution Width CV 12.4 % (11.6-14.6); RBC Distribution Width SD 39.3 fl (35.1-43.9); Red Blood Count 3.98 M/mm3 (4.6-6.2)
[2023-09-10 17:16] LABS: Anion Gap 3 (5-15); BUN 13 mg/dL (7-18); BUN/Creat Ratio 18.1 RATIO (10-20); Calcium,Total 8.5 mg/dL (8.5-10.1); Chloride 109 mmol/L (98-107); Creatinine, Serum 0.72 mg/dL (0.70-1.30); EST Glomerular Filtration Rate 118 mL/min (>60); Est Glom Filt Rate - Afr Amer 143 mL/min (>60); Estimated Creatinine Clearance 138.95 ml/min; Glucose 114 mg/dL (74-106); Potassium 3.6 mmol/L (3.5-5.1); Sodium Level 137 mmol/L (136-145); Troponin-I HS 15 pg/mL (3.0-78.0)
[2023-09-10 17:39] LABS: BNP,B-Type NATRIURETIC PEPTIDE 176.9 pg/mL (0-100)
[2023-09-10 17:43] LABS: Differential Indicated SCAN CRITERIA MET; White Blood Count 0.6 K/mm3 (4.4-11.0)
[2023-09-10 17:44] LABS: Differential Comment SCANNED
[2023-09-10] MEDS: levoFLOXacin 500 MG Tablet PO (20:17)
[2023-09-12 14:36] LABS: Pathologist Review Reviewed
== END 2023-09-10 20:21 | disposition home or self-care (01) ==
LOC: ED 16:58
PROVIDERS: Emergency Provider Emergency Medicine; Visit Provider Emergency Medicine
DX: I48.92 Unspecified atrial flutter (principal); I50.33 Acute on chronic diastolic (congestive) heart failure; I11.0 Hypertensive heart disease with heart failure; I48.0 Paroxysmal atrial fibrillation; D70.9 Neutropenia, unspecified; R06.09 Other forms of dyspnea; K21.9 Gastro-esophageal reflux disease without esophagitis; J45.909 Unspecified asthma, uncomplicated; Z79.899 Other long term (current) drug therapy
CPT/HCPCS: 36591; 71275; 80048; 83880; 84484; 85025; 87631; 93005; 99284; Q9967; A4216

== ENCOUNTER → 2023-09-19 | Outpatient (CLI) | payer BC, SELFPAY | END | disposition home or self-care (01) | PROVIDERS: Referring Provider Nurse Practitioner Gerontology; Visit Provider Nurse Practitioner Gerontology | DX: I48.92 Unspecified atrial flutter (principal) | CPT/HCPCS: 93225; 93226 ==

== ENCOUNTER 2024-01-05 08:28 | Day surgery (SDC) | payer BC, SELFPAY ==
[2024-01-02 07:43] VITALS: BMI 38.2
--- NOTE | 2024-01-05 10:26 | CL.D_ITS ---
Patient Name: ELMIRA PLASENCIA Study Date: 01/05/2024 Performing: Juan M Diaz MD Ht: 70 inches 177.8 cm : 1960 Wt: 267 lbs 121.11 kg Age: 63 Gender: male BSA: 2.36 PROCEDURE(S) PERFORMED DC01-(10252)LHC/COR/LV CLINICAL PROFILE AND INDICATIONS Indications: Cardiac Arrythmia Heart Failure: None Stress/Imaging Date: 07/20/23 CAD Presentations: Symptom unlikely to be ischemic. CONCLUSIONS Normal coronary arteries Normal LV size, wall motion,and systolic function Aortic Valve Stenosis- Mild RECOMMENDATIONS Medical therapy DESCRIPTION OF PROCEDURE The patient arrived to the procedure lab. The risks and benefits of the procedure as well as a full description of our services here and current unavailability of surgical backup were fully explained to the patient and/or their significant other prior to the catheterization. The Timeout was completed, verifying the correct patient and procedure. The patient's procedural site was prepped and draped in the usual fashion. Local anesthetic was given subcutaneously to right radial region with Lidocaine 2%. Using a modified Seldinger technique, arterial access was obtained via the right radial artery, a 6Fr sheath was inserted. Right Coronary Artery selective angiography was then performed in multiple views using a 5 Fr. 4.0 Tarzana catheter. Left Coronary Artery selective angiography was performed in multiple views using a 5 Fr. 4.0 Tarzana catheter. Left Ventriculography was performed in DANIEL projection using a 5 Fr. Pigtail catheter. LV to AO pullback pressures were then recorded.The arterial sheath was pulled and a TR Band was applied for hemostasis -10cc air CORONARY ANGIOGRAPHY DOMINANCE: Left Dominant LEFT HEART ASSESSMENT Left Ventricular Ejection Fraction: by LV Gram 60 % Normal LV wall motion Normal Left Ventricular systolic function LEFT MAIN: Angiographically normal LEFT ANTERIOR DESCENDING ARTERY: Angiographically normal CIRCUMFLEX ARTERY: Angiographically normal COMPLICATIONS No Complications PROCEDURE MEDICATIONS Fentanyl 50 mcg IV Versed 1 mg IV Oxygen: 2 L/min via nasal cannula Baby Aspirin (81mg) 3 Tabs PO @ 01/05/2024 09:12:30 Heparin given IA 01/05/2024 09:44:06 Verapamil 2.5mg, Ntg 100mcgs, 3000 units of Heparin given IA 01/05/2024 09:44:06 SUMMARY OF HEMODYNAMIC DATA Time AIR REST ECG 09:07:17 ECG 09:07:45 AO 117/76 (95) SA 10:08:56 LV 130/10, 15 10:16:58 LV 139/9, 15 10:17:06 LV 128/12, 22 10:17:38 LV 130/11, 15 10:17:46 LVp 133/9, 30 10:17:49 AOp 112/66 (88) 10:17:56 Signed By Juan M Diaz MD On 01/05/2024 10:25:47 Juan M Diaz MD
== END 2024-01-05 12:30 | disposition home or self-care (01) ==
PROVIDERS: Referring Provider Internal Medicine Cardiovascular Disease; Visit Provider Internal Medicine Cardiovascular Disease
DX: I35.0 Nonrheumatic aortic (valve) stenosis (principal); I50.33 Acute on chronic diastolic (congestive) heart failure; I48.0 Paroxysmal atrial fibrillation; R00.2 Palpitations; Z79.01 Long term (current) use of anticoagulants; Z79.899 Other long term (current) drug therapy; R60.0 Localized edema; R06.09 Other forms of dyspnea; K21.9 Gastro-esophageal reflux disease without esophagitis; J45.909 Unspecified asthma, uncomplicated; F17.220 Nicotine dependence, chewing tobacco, uncomplicated
CPT/HCPCS: 93458; 99152; 99153; J7040; Q9967; A4216; C1769; C1894

== ENCOUNTER → 2024-01-19 | Outpatient (CLI) | payer BC, SELFPAY ==
--- NOTE | 2024-01-19 07:23 | NM_ITS ---
CLINICAL: 63-year-old male with history of primary prostate carcinoma. WHOLE BODY 99m Tc MDP RADIONUCLIDE BONE SCINTIGRAPHY COMPARISON: Previous whole body bone scintigraphy study dated 06/24/2023 FINDINGS: Following the intravenous administration of 26.4 mCi of 99m Tc MDP, whole body bone images reveal: 1. Enhanced radiopharmaceutical concentration remains apparent in the third lumbar vertebra involving the right transverse process, persistently identified in the left acetabulum with a decrease in the spatial visualization of uptake, newly identified within the right posterior 10th and left anterior fourth ribs, the left proximal clavicle. 2. There is increased tracer uptake noted in the bilateral midfoot, the knee articulations bilaterally, the bilateral shoulders, the upper cervical spine posteriorly on the left. 3. The remaining skeletal structures are scintigraphically unremarkable with normal-appearing renal images and urinary bladder activity identified. NM/Bone Scan Whole Body IMPRESSION: 1. The increase in tracer uptake defined in the third lumbar vertebra involving the right transverse process, the left acetabulum, the left posterior 10th and left anterior fourth ribs, the left proximal clavicle are commensurate with probable skeletal metastatic disease. 2. Degenerative changes are defined in the bilateral midfoot, both knee articulations, the shoulders bilaterally and upper cervical spine. 3. Overall compared to the previous whole body bone scintigraphy study dated 06/24/2023, there is apparent progression of skeletal metastatic disease. Electronically Signed: Tod Menezes DO at 15:28 EDT ,
== END | disposition home or self-care (01) ==
LOC: NM 07:23
PROVIDERS: Referring Provider Internal Medicine Hematology & Oncology; Visit Provider Internal Medicine Hematology & Oncology
DX: C61 Malignant neoplasm of prostate (principal); C77.9 Secondary and unspecified malignant neoplasm of lymph node, unspecified; C79.51 Secondary malignant neoplasm of bone
CPT/HCPCS: 78306; A9503

== ENCOUNTER → 2024-03-31 | Outpatient (CLI) | payer BC, SELFPAY ==
--- NOTE | 2024-03-31 14:53 | CT_ITS ---
STUDY: CT CHEST, ABDOMEN T PELVIS WITH CONTRAST REASON FOR EXAM: Male, 63 years old. met prostate ca; RP adenopathy; new hoarseness RADIATION DOSAGE (If Supplied By Facility): CTDIvol = ( 18.26 ) mGy, DLP = ( 1740.37 ) mGycm TECHNIQUE: Transaxial imaging was performed following intravenous administration of IV 100mL Isovue-300. The protocol utilizes one or more of the following dose reduction techniques: automated exposure control, adjustment of mA and/or kV according to patient size,and/or use of iterative reconstruction technique. COMPARISON: CTA ChestMay 2023 5:30pm FINDINGS: CHEST The lungs are normal. There is no demonstrated pleural abnormality. Normal heart and pericardium. Normal mediastinum. Normal hilar regions. Normal unenhanced pulmonary arteries. Ascending aorta aneurysm measures 4.4 cm. Metastatic lesion at T12 is unchanged since the prior study. There is no demonstrated abnormality of the visualized upper abdomen. ABDOMEN The visualized lung bases are unremarkable. The visualized portions of the heart are within normal limits. Multiple liver cysts the largest measures 1.2 cm. There are multiple gallstones. Normal spleen. Normal pancreas. Normal bilateral adrenal glands. Normal right kidney. Normal left kidney. Normal visualized stomach. Normal small intestine. Normal colon. The appendix is visualized and appears normal. Normal abdominal aorta. Normal inferior vena cava. Normal retroperitoneum. Normal abdominal wall. Multiple osteosclerotic metastatic lesions T12, L1, L2, L3, L5. PELVIS Normal urinary bladder. Normal visualized small intestine. Normal visualized colon. There is no pelvic fluid. There is no pelvic lymphadenopathy or mass lesion. Normal visualized pelvic arteries. Normal abdominal wall. Multiple metastatic lesions in the pelvic bone. CT/CT Chest, Abd, Pel w/Contrast IMPRESSION: Multiple metastatic lesions in the thoracic, lumbar spine and pelvic bones not significantly changed since the previous study. No new metastatic lesions are seen. There is no evidence of pathologic fractures. Electronically Signed: Benji Cardoso MD at 8:13 EST ,
== END | disposition home or self-care (01) ==
LOC: CT 14:52
PROVIDERS: Referring Provider Nurse Practitioner Family; Visit Provider Nurse Practitioner Family
DX: C61 Malignant neoplasm of prostate (principal); C77.9 Secondary and unspecified malignant neoplasm of lymph node, unspecified; C79.51 Secondary malignant neoplasm of bone; R49.0 Dysphonia
CPT/HCPCS: 71260; 74177; Q9967

== ENCOUNTER → 2024-04-16 | Outpatient (CLI) | payer BC, SELFPAY ==
--- NOTE | 2024-04-16 06:44 | EKG12_ITS ---
Test Reason : DRUG CHECK Blood Pressure : */* mmHG Vent. Rate : 57 BPM Atrial Rate : 57 BPM P-R Int : 172 ms QRS Dur : 106 ms QT Int : 438 ms P-R-T Axes : 23 -35 59 degrees QTcB Int : 426 ms Sinus bradycardia Left axis deviation Abnormal ECG Confirmed by SAURAV MUNIZ, ASHOK ([id number]), society editor KRYSTINA HOWELL ([id number]) on 04/19/2024 6:41:10 AM Referred By: Jignesh Purcell Confirmed By: ASHOK MG MD
== END | disposition home or self-care (01) ==
LOC: PSN 06:44
PROVIDERS: Referring Provider Internal Medicine Hematology & Oncology; Visit Provider Internal Medicine Hematology & Oncology
DX: C61 Malignant neoplasm of prostate (principal)
CPT/HCPCS: 93005

== ENCOUNTER → 2024-05-24 | Outpatient (CLI) | payer BC, SELFPAY ==
--- NOTE | 2024-05-24 12:24 | RAD_ITS ---
STUDY: X-RAY - LUMBAR SPINE REASON FOR EXAM: Male, 63 years old. Back pain. Prostate cancer with metastases to bone. TECHNIQUE: 2 view(s) of the lumbar spine were obtained. COMPARISON: Lumbar spine MRI dated June 2023 FINDINGS: Osteopenia. Normal lumbar lordosis. Minimal levoscoliosis. 4 mm of anterolisthesis of L3 on L4. Diffuse moderate lower thoracic and lumbosacral facet sclerosis. Diffuse intervertebral disc space narrowing most marked at L3-4, L4-5 and L5-S1. The soft tissue structures are normal. RAD/Lumbar Spine 2 or 3 Views IMPRESSION: Osteopenia with lower thoracic and lumbosacral spondylosis. Abnormalities noted on the lumbar spine MR are not visualized on the x-rays. Electronically Signed: Santo Condon MD at 15:24 EST ,
== END | disposition home or self-care (01) ==
LOC: RAD 12:22
PROVIDERS: Referring Provider Nurse Practitioner Family; Visit Provider Nurse Practitioner Family
DX: C61 Malignant neoplasm of prostate (principal); C79.51 Secondary malignant neoplasm of bone; M54.9 Dorsalgia, unspecified
CPT/HCPCS: 72100

== ENCOUNTER → 2024-05-25 | Outpatient (CLI) | payer BC, SELFPAY ==
--- NOTE | 2024-05-25 15:40 | MRI_ITS ---
PROCEDURE: PELVIS W/WO CONTRAST REASON FOR EXAM: Prostate CA, with known bony metastasis. TECHNIQUE: Multiplanar, multisequence MRI of the prostate was performed before and following intravenous gadolin ium-based contrast. Axial, coronal, and sagittal high-resolution T2-weighted images, axial T1-weighted images, diffusion-weighte d images with high B value, and dynamic postcontrast fat saturated T1-weighted images were performed. CONTRAST: 24 cc of Clariscan port COMPARISON: None. FINDINGS: Multifocal areas of abnormal marrow signal, with corresponding enhancement seen, including however no t limited to, L3 transverse process on the right, partially imaged, L4 vertebral body measuring 2.1 cm in the CC dimension, right iliac wing measuring 1.6 cm right sacral ala measuring 2 cm, left sacral ala measuring 1.1 cm and left femoral head measuring 2.5 cm, consistent with bony metastasis. No acute fractures or dislocations are identified. Suspect prior prostatectomy. Urinar y bladder is partially decompressed. Occasional diverticula involving the proximal sigmoid colon without gross surrounding inflammatory changes. No definite pelvic lymphadenopathy. Overlying soft tissues appear intact. MRI/Pelvis W/WO Contrast IMPRESSION: Multifocal bony metastasis with corresponding enhancement, including however no t limited to, the transverse process of L3 on the right, L4 vertebral body, right iliac wing, bilateral sacral ala and left femor al head, with measurements provided above. [facility]
--- NOTE | 2024-05-25 15:40 | MRI_ITS ---
PROCEDURE: SPINE LUMBAR W/WO CONTRAST REASON FOR EXAM: Prostate CA. Back pain. TECHNIQUE: Lumbar spine MRI without and with intravenous gadolinium-based contrast. CONTRAST: 24 cc Clariscan port COMPARISON: Prior MRI lumbar spine dated 07/04/2023 FINDINGS: Vertebrae: There is heterogeneous marrow signal throughout the visualized thoracolumbar spine, and ri ght iliac wing, with edema and enhancement most conspicuous of the T12 vertebral level as well as the posterior elements of L2 a nd L3 eccentric towards the right and L4 vertebral level. Heterogeneous mass arising from the transverse process of L3 eccentric towards the right measures 4.5 cm AP x 3.8 cm transverse by 4.6 cm cc, with enhancement. Findings are consistent with diffuse o sseous metastatic burden, progressive in the interval. There is grade 1 anterolisthesis of L4 on L5. No significant vertebral body height loss is noted. Few scattered hemangiomas again noted. Conus medullaris terminates posterior to the T12-L1 level. D istal cord and cauda equina appear intact. 1.5 renal cyst is seen on the right. Disc levels as follows: T12-L1: Mild right paracentral disc bulge. Facet arthrosis and ligamentum flavum thickening. No sig nificant central spinal or neural foraminal stenosis bilaterally L1-2: No disc herniation. Moderate facet arthrosis and ligamentum flavum thickening. No central spi nal or neural foraminal stenosis bilaterally. L2-3: Minimal disc bulge. Moderate facet arthrosis with ligamentum flavum thickening. Mild narrowin g of the right lateral recess. No central spinal stenosis. No neural foraminal stenosis bilaterally L3-4: Broad-based disc bulge mildly effaces the ventral subarachnoid space. Facet arthrosis and mild ligamentum flavum thickening. No central spinal stenosis. Moderate neural foraminal stenosis on the right. No signif icant neural foraminal stenosis on the left L4-5: Broad-based disc bulge. Facet arthrosis. No significant central spinal or left neural foramin al stenosis. Neural foramen measures lower limits of normal on the right L5-S1: Mild broad-based disc bulge. Facet arthrosis bilaterally. No central spinal or neural forami nal stenosis bilaterally. Sacrum: 1.6 cm heterogeneous T1 hypointense lesion within the right iliac wing, with mild enhancement . Postcontrast images: Heterogeneous enhancement throughout the visualized thoracolumbar spine. Mass a rising from the transverse process of L3 on the right demonstrates enhancement. MRI/Spine Lumbar W/WO Contrast IMPRESSION: 1. Diffuse osseous metastatic burden to the visualized thoracolumbar spine most conspicuous at the T12 vertebral body, posterior elements of L2 and L3 on the right, L4 vertebral body as well as the right shania c wing, progressive in the interval. 2. Heterogeneous mass arising from the transverse process arising from the L3 t ransverse process eccentric towards the right, as described 3. Multilevel spondylotic changes, without significant canal stenosis. There i s moderate neural foraminal stenosis at the L3-4 level on the right. 4. Additional findings, as above Reading [facility]
[2024-05-25] MEDS: 0.9% Saline Lock 10 ML Syringe IV (18:20)
== END | disposition home or self-care (01) ==
PROVIDERS: Referring Provider Nurse Practitioner Family; Visit Provider Nurse Practitioner Family
DX: C61 Malignant neoplasm of prostate (principal); C79.51 Secondary malignant neoplasm of bone; M54.9 Dorsalgia, unspecified
CPT/HCPCS: 72158; 72197; A9575; A4216

== ENCOUNTER → 2024-05-28 | Outpatient (CLI) | payer BC, SELFPAY ==
--- NOTE | 2024-05-28 09:06 | NM_ITS ---
PROCEDURE: BONE SCAN WHOLE BODY REASON FOR EXAM: Metastatic prostate cancer. Previous prostatectomy. TECHNIQUE: Whole-body bone scan with anterior and posterior views. Imaging at 3.5 hours. RADIOPHARMACEUTICAL: 25.1 mCi Technetium-99m MDP IV COMPARISON: Whole-body bone scan of 01/19/2024 FINDINGS: Bones: Interval worsening of multiple sites of osseous metastatic disease of the thoracic and lumbar spine noted, most prominent at the T12 vertebral body in the left T8 vertebra. The exophytic area at the right L3 vertebra is again seen. Interval worsening of the right L4 vertebra is noted. Worsening uptake in the posterolateral right 9th rib is seen. 2 focus of increased uptake of the left proximal clavicle is noted, concerning for metastatic disease. Worsening of uptake at the distal left 1st or 2nd rib is also noted, consistent with metastatic disease. Significant increased focal uptake in the left acromion is seen, also concerning for metastatic disease versus asymmetric worsening arthritic change. Increased uptake at the mid feet is similar to the prior study, likely degenerative. Scee-oygdvar-dvvx-right bilateral knee degenerative changes are again seen. Kidneys: Normal activity is identified at both kidneys. NM/Bone Scan Whole Body IMPRESSION: Interval worsening of osseous metastatic disease is seen within the left clavic le, ribs, and spine. Possible also worsening at the left acromion (versus asymmetric worsening degenerative changes). Reading Location: [address]
== END | disposition home or self-care (01) ==
LOC: NM 09:05
PROVIDERS: Referring Provider Nurse Practitioner Family; Visit Provider Nurse Practitioner Family
DX: C61 Malignant neoplasm of prostate (principal); C77.9 Secondary and unspecified malignant neoplasm of lymph node, unspecified; C79.51 Secondary malignant neoplasm of bone; M54.9 Dorsalgia, unspecified
CPT/HCPCS: 78306; A9503

== ENCOUNTER → 2024-08-25 | Outpatient (CLI) | payer BC, SELFPAY ==
--- NOTE | 2024-08-25 10:17 | NM_ITS ---
PROCEDURE: BONE SCAN WHOLE BODY 08/25/2024 REASON FOR EXAM: METS PROSTATE CANCER TECHNIQUE: Whole-body bone scan with anterior and posterior views. Imaging at 3.5 hours. RADIOPHARMACEUTICAL: 26 mCi Technetium-99m MDP IV COMPARISON: CORRELATION WITH EXISTING RELEVANT IMAGING STUDIES (i.e. x-ray, MRI, CT, etc.): 05/28/2024 FINDINGS: Bones: Increase in the size and number of areas of increased uptake within the axial skeleton consistent with worsening metastatic disease. Kidneys: Normal concentration radiopharmaceutical by both kidneys with excretion into the bladder. NM/Bone Scan Whole Body IMPRESSION: Worsening metastatic disease. Reading Location: [id number]
== END | disposition home or self-care (01) ==
LOC: NM 10:16
PROVIDERS: Referring Provider Internal Medicine Hematology & Oncology; Visit Provider Internal Medicine Hematology & Oncology
DX: Z45.2 Encounter for adjustment and management of vascular access device (principal); C79.51 Secondary malignant neoplasm of bone; C61 Malignant neoplasm of prostate
CPT/HCPCS: 78306; A9503

== ENCOUNTER 2024-10-11 07:04 | Inpatient (IN) | payer BC, SELFPAY ==
[2024-10-11] VITALS (8 sets, daily range): BP systolic 89–104; BP diastolic 43–72; PULSE 68–88; RESP 13–20; TEMP 36.7–37.3; O2SAT 91–98; BMI 31.7; BMI 30.7
--- NOTE | 2024-10-11 07:43 | EKG12_ITS ---
Test Reason : Blood Pressure : */* mmHG Vent. Rate : 83 BPM Atrial Rate : 83 BPM P-R Int : 186 ms QRS Dur : 118 ms QT Int : 404 ms P-R-T Axes : 22 -37 35 degrees QTcB Int : 474 ms Normal sinus rhythm Left axis deviation Non-specific intra-ventricular conduction delay Minimal voltage criteria for LVH, may be normal variant ( Leonides product ) Abnormal ECG Confirmed by SAURAV MUNIZ, ASHOK ([id number]), movie editor KRYSTINA HOWELL ([id number]) on 10/12/2024 10:46:55 AM Referred By: Confirmed By: ASHOK MG MD
--- NOTE | 2024-10-11 07:46 | CT_ITS ---
PROCEDURE: CTA CHEST W/WO CONTRAST 10/11/2024 REASON FOR EXAM: SOB, HX OF CANCER TECHNIQUE: CTA CHEST W/WO CONTRAST Multiplanar and multisequence images were obtained. CONTRAST: Information not provided. One or more dose reduction techniques were used (e.g., Automated exposure control, adjustment of the mA and/or kV according to patient size, use of iterative reconstruction technique). RADIATION DOSE SUMMARY: CTDlvol: 71.5 mGy DLP: 2049.85 mGycm COMPARISON: CT chest abdomen and pelvis, 03/31/2024. # of known CTs in the past 12 months: 1 # of known Cardiac Nuclear Medicine Studies in the past 12 months: None FINDINGS: Thoracic Aorta: There is aneurysmal dilatation of the ascending thoracic aorta. There is no evidence of aortic dissection. There is calcific vascular disease of the aortic arch. Measurements (cm): Mid ascendin.3 cm Proximal descendin.5 cm Heart: The heart size is normal. There is a minimal pericardial effusion. There is no calcific vascular disease of the coronary arteries evident. Pulmonary Vessels: There is no evidence of pulmonary emboli. The main pulmonary artery is normal in diameter. Hardware: There is a chemotherapy port in the left upper chest wall with the tip in the superior vena cava via the left internal jugular vein. Lymph nodes: There is no significant mediastinal or hilar lymphadenopathy. Lungs and Airways: There is peribronchial consolidation again seen in the middle lobe of the right lung consistent with atelectasis or pneumonia. There is peribronchial consolidation in the posterior basilar segments of the lower lobes of both lungs, not present previously, consistent with atelectasis or pneumonia. Pleura: There are no pleural effusions. Upper Abdomen: Unremarkable. Chest wall: There is no axillary lymphadenopathy. There is bilateral gynecomastia. There are sclerotic foci in multiple thoracic vertebral bodies consistent with the patient's known metastatic prostate cancer. CT/CTA Chest W/WO Contrast IMPRESSION: 1. No evidence of pulmonary emboli. 2. Aneurysmal dilatation of the ascending thoracic aorta. 3. Atelectasis or pneumonia in the middle lobe of the right lung in the lower lobe of both lungs as described. 4. Other findings as noted. Reading Location: [id number]
[2024-10-11 07:58] LABS: Absolute Lymphocyte Count 0.63 X10^3/uL (0.83-4.51); Basophil# 0.03 X10^3/uL; Basophil% 0.3 % (0-1); Eosinophil# 0.01 X10^3/uL; Eosinophils% 0.1 % (0-5); Hematocrit 34.4 % (40-54); Hemoglobin 11.4 g/dL (13.0-16.5); Lymphocyte # 0.63 X10^3/ul (0.83-4.51); Lymphocyte % 5.4 % (19-41); Mean Corp Hgb Conc 33.1 g/dL (32-36); Mean Corpuscular Volume 84.5 fL (80-94); Mean Platelet Vol. 9.2 fl (6.2-12.0); Monocyte# 0.94 X10^3/uL; NRBC Flagged by Analyzer 0 % (0-5); Neutrophil # 9.95 X10^3/uL (2.7-7.7); Neutrophil % 84.8 % (47-70); Platelet Count 358 K/mm3 (150-450); RBC Distribution Width CV 14.8 % (11.6-14.6); RBC Distribution Width SD 45.7 fl (35.1-43.9); Red Blood Count 4.07 M/mm3 (4.6-6.2); White Blood Count 11.7 K/mm3 (4.4-11.0)
[2024-10-11] MEDS: 0.9% Normal Saline (1000mL) 1,000 ML 999 ML IV ×2 (08:00→16:01)
--- NOTE | 2024-10-11 08:00 | CT_ITS ---
PROCEDURE: ABDOMEN/PELVIS W IV CONT ONLY 10/11/2024 REASON FOR EXAM: ABD PAIN, CONSTIPATION. Right-sided chest pain, shortness of breath and fever. Other history includes asthma, hypertension and prostate carcinoma with bone metastases. TECHNIQUE: ABDOMEN/PELVIS W IV CONT ONLY. Coronal and Sagittal reconstruction series were provided. ORAL CONTRAST TYPE: None. AMOUNT: mL CONTRAST: Isovue 370 VOLUME: 100 mL One or more dose reduction techniques were used (e.g., Automated exposure control, adjustment of the mA and/or kV according to patient size, use of iterative reconstruction technique. RADIATION DOSE SUMMARY: CTDlvol: 54.19 1740 mGy DLP: 1740 mGycm COMPARISON: CT exam of March 31, 2024 FINDINGS: Lung bases: Platelike atelectasis in both lung bases. Liver: Several tiny liver cysts. Gallbladder: Fat stranding around the gallbladder with marked gallbladder distension. Edema of the gallbladder wall. Suspect stone in the neck of the gallbladder. Spleen: Unremarkable Pancreas: Small but otherwise normal. Adrenals: Normal Kidneys: Unremarkable Bladder: Identified. Not identified Reproductive Organs: Identified Bowel: At the hepatic flexure there is thickening of the colon wall and pericolic fat stranding at the: Immediately adjacent to the gallbladder the gallbladder inflammatory process is most likely related to the: Findings Appendix: Not identified Lymph nodes: Not identified. Vasculature: Appreciated. Peritoneum / Retroperitoneum: No free air. Traces of free fluid in the right upper quadrant Bones: Osteoblastic processes involving the T12 through L4 vertebral bodies CT/Abdomen/Pelvis W IV Cont ONLY IMPRESSION: Acute cholecystitis with inflammatory process affecting the right upper quadran t and transiting hepatic flexure of the colon. Reading Location[facility]
--- NOTE | 2024-10-11 08:09 | EX.ED.DYSGE1 ---
HPI History of Present Illness Chief Complaint: General Illness Narrative Narrative: Patient is a 63-year-old male with a past medical history of prostate cancer with metastases, paroxysmal atrial flutter on Xarelto, congestive heart failure, GERD, DVT, hypertension who presents to the emergency department with a chief complaint of shortness of breath, right-sided chest pain, constipation and abdominal pain. Patient states that he just went to [place] for bone scan and CT scans and just returned. He states that he has worsening shortness of breath with exertion and states that he feels like his lungs are filled with fluid he states that he has never had to have this drained off his lungs before. Patient denies any sick contacts. [facility] Medical History Hoarseness of voice Bilateral lower extremity edema Encounter for chemotherapy management History of steroid therapy Arthritis Dietary restriction Gastric reflux Patient uses snuff Shortness of breath on exertion History of pain when walking History of edema History of atrial fibrillation Encounter for education Metastasis to bone Regional lymph node metastasis present Rising PSA following treatment for malignant neoplasm of prostate Prostate cancer metastatic to intraabdominal lymph node Edema History of COVID-19 Wears hearing aid Wears contact lenses Alcohol use DVT (deep venous thrombosis) Back pain Injury of head and neck Migraine headache History of echocardiogram History of stress test Cardiology follow-up encounter Hypertension Prostate cancer Acute on chronic diastolic (congestive) heart failure Paroxysmal supraventricular tachycardia Asthma Paroxysmal atrial flutter (08/18/18) Intermittent palpitations Obesity Home Medications ?Medication ?Instructions ?Recorded ?Last Taken ?Type albuterol sulfate 90 mcg/actuation 2 puff inhalation Q6H PRN Asthma 09/07/18 11/15/20 06:00 History aerosol inhaler (Ventolin HFA) albuterol sulfate 2.5 mg/3 mL 2.5 mg inhalation Q6H PRN PRN 06/28/20 08/25/23 History (0.083 %) solution for nebulization Asthma montelukast 10 mg tablet 10 mg PO QHS asthma 07/05/20 09/09/23 History lidocaine-prilocaine 2.5 %-2.5 % 1 applic topical ONCE PRN port 07/07/23 Unknown Rx topical cream access 30 days #30 grams oxycodone 10 mg tablet 10 mg PO Q8H PRN pain 07/21/23 08/17/23 History calcium carbonate (Calcium 600) 600 mg PO DAILY 08/15/23 09/09/23 History cholecalciferol (vitamin D3) 50 50 mcg PO DAILY 08/15/23 09/09/23 History mcg (2,000 unit) capsule (Vitamin D3) vwlhfwg-utmxqowmozxtb-bjlgouai 250 1 tab PO Q4-6H PRN pain 10/06/23 Unknown History mg-250 mg-65 mg tablet (Excedrin Migraine) fluticasone 100 mcg-salmeterol 50 1 inh inhalation DAILY asthma 10/06/23 Unknown History mcg/dose blistr powdr for inhalation (Advair Diskus) omeprazole 20 mg tablet,delayed 20 mg PO DAILY 11/03/23 Unknown History release flecainide 100 mg tablet 100 mg PO BID #180 TABLETS 08/03/24 Unknown Rx leuprolide (3 month) 22.5 mg (3 mg subcut 08/03/24 Unknown History month) subcutaneous syringe (Masabi) metoprolol succinate 100 mg 100 mg PO DAILY bp #90 tabs 08/03/24 Unknown Rx tablet,extended release 24 hr polyethylene glycol 3350 17 g PO QDAY PRN 08/03/24 Unknown History gram/dose oral powder (Miralax) rivaroxaban 20 mg tablet 20 mg PO QHS BLOOD THINNER #90 tabs 08/03/24 Unknown Rx albuterol sulfate 1.25 mg/3 mL 1 inhalation 4X/DAY PRN PRN 10/11/24 Unknown History solution for nebulization shortness of breath or wheezing tizanidine 4 mg tablet 4 mg PO TID 10/11/24 Unknown History Allergy/AdvReac Type Severity Reaction Status Date / Time ciprofloxacin (From Cipro) Allergy Unknown swelling Verified 10/11/24 07:05 Family History Mother CAD (coronary artery disease) Kidney disease Father Heart disease CHF Lung cancer Uncle Myocardial infarction Paternal from [place] age 38 Surgical History Hx of cystoscopy History of prostatectomy (07/05/20) History of amputation of finger of right hand History of left inguinal hernia repair History of bilateral inguinal hernia repair History of arthroscopy of left knee Social History household members: spouse current occupational status: employed Smoking Status: Never smoker Smokeless tobacco user: chewing tobacco and other alcohol intake: current alcohol intake frequency: a few times a week Alcohol type: beer details: 12 pack or more in a week substance use type: does not use caffeine: No ROS ROS ED ROS Narrative Constitutional: Denies fevers, chills, headaches Cardiovascular: Complains of right sided rib/chest pain Respiratory: Complains shortness of breath denies coughing wheezing Abdomen: Complains of constipation and abdominal pain as noted above denies vomiting or diarrhea denies dark tarry stools or blood in his stool : Denies urinary symptoms Neurological: Denies numbness, weakness, tingling Musculoskeletal: Complains of left-sided back pain Skin: Denies any rashes or lesions EXAM Physical Exam Narrative Exam Narrative: General: Patient lying in bed resting comfortably did not appear to be acute distress Head: Atraumatic, normocephalic Eyes: PERRL bilaterally, EOMI bilateral, no conjunctival injection noted Neck: Soft, supple, trachea midline Cardiovascular: Regular in rhythm no murmurs gallops rubs noted Respiratory: Clear to auscultation bilaterally Abdomen: Soft, nondistended, diffuse tenderness to palpation no rebound or guarding on exam Extremities: +4/5 strength noted in the bilateral upper and lower extremities, radial pulses +2/4 in the bilateral extremities, no pedal edema on exam Neurological: Patient follow commands knew that he was at [facility] years 2024 Skin: Warm, dry, intact no rashes or lesions noted Const Vital Signs: 10/11/24 07:05 10/11/24 07:36 10/11/24 09:04 Temperature 98.2 F 98.2 F Temperature Source Oral Oral Pulse Rate 82 80 Respiratory Rate 20 H 13 Respiratory Effort Short of Breath Respiratory Pattern Tachypnea Blood Pressure 101/72 102/68 Blood Pressure Mean 81 79 Pulse Ox 98 93 Oxygen Delivery Method Room Air Room Air 10/11/24 11:00 Temperature Temperature Source Pulse Rate 88 Respiratory Rate 16 Respiratory Effort Respiratory Pattern Blood Pressure 96/64 Blood Pressure Mean 74 Pulse Ox 98 Oxygen Delivery Method MDM MDM MDM Narrative Medical decision making narrative: Patient is a 63-year-old male who presented to the emergency department with a chief complaint of dyspnea on exertion, right sided chest wall pain and left back pain. On the differential diagnosis includes but not limited to CHF exacerbation, ACS, pneumothorax, pneumonia, worsening metastases, malignant pleural effusion, PE. Once workup is obtained reviewed he will be reevaluated. Patient's CBC was reviewed and showed a leukocytosis of 11,000, hemoglobin 11.4, platelet count of 358. Patient sodium was 133, potassium 3.6, creatinine was 1.44. Patient's AST and ALT are 22 and 16 respectively, troponin was 30 with a delta troponin pending. Patient's EKG was reviewed as well which showed sinus rhythm with a rate of 78 bpm. Patient's proBNP normal at 896, lipase normal at 15. Patient's total bilirubin normal at 0.99. Patient's CTA of the chest was reviewed and showed no evidence of pulmonary emboli. Aneurysmal dilation of the ascending thoracic aorta which measures 4.3 in the mid ascending and 2.5 in the proximal descending. Atelectasis or pneumonia in the middle lobe of the right lung in the lower lobe of both lungs as described. After this was reviewed patient was ordered Rocephin and azithromycin at 9:[address] ab and pelvis with IV contrast was pending. Patient CT abdomen pelvis IV contrast reviewed and showed acute cholecystitis with inflammatory process affecting the right upper quadrant and transhepatic flexure of the colon. Repeat abdominal exam patient has significant tenderness palpation of the right upper quadrant. Reach out to on-call general surgeon Dr. Pruett who states that she will talk with interventional radiology to see if they can place a drain since he is on Xarelto. Patient was given Zosyn at 9:[address] Pruett states that admit the patient to the hospitalist team hold Xarelto and drain will be placed in the morning. Will discuss case with hospitalist for admission. Discussed case with hospitalist Dr. Watkins who accept patient for admission. Lab Data Labs: Laboratory Results - last 24 hr 10/11/24 10/11/24 10/11/24 07:45 09:45 11:44 WBC 11.7 H RBC 4.07 L Hgb 11.4 L Hct 34.4 L MCV 84.5 MCH 28.0 MCHC 33.1 RDW Std Deviation 45.7 H RDW Coeff of Emily 14.8 H Plt Count 358 MPV 9.2 Immature Gran % (Auto) 1.400 H Neut % (Auto) 84.8 H Lymph % (Auto) 5.4 L [place] % (Auto) 8.0 Eos % (Auto) 0.1 Baso % (Auto) 0.3 Absolute Neuts (auto) 10.0 H Absolute Lymphs (auto) 0.63 L Nucleated RBC % 0 Sodium 133 Potassium 3.6 Chloride 99 Carbon Dioxide 20.6 L Anion Gap 14 BUN 24 H Creatinine 1.44 H Estim Creat Clear Calc 63.94 Est GFR (MDRD) Non-Af 55 L BUN/Creatinine Ratio 16.6 Glucose 149 H Calcium 9.0 Total Bilirubin 0.99 AST 22 ALT 16 Alkaline Phosphatase 152 H Troponin T High Sens 30 H Troponin T Hi Sens 2 Hr 27 H Troponin T Hi Sens 4Hr 24 H NT pro BNP II 896 Total Protein 7.0 Albumin 3.4 Globulin 3.6 Albumin/Globulin Ratio 0.9 Lipase 15 Radiography Diagnostic Testing: Clinical Impression(s) from Imaging Studies Chest CTA 10/11/24 07:46 IMPRESSION: 1. No evidence of pulmonary emboli. 2. Aneurysmal dilatation of the ascending thoracic aorta. 3. Atelectasis or pneumonia in the middle lobe of the right lung in the lower lobe of both lungs as described. 4. Other findings as noted. Reading Location: [id number] Abdomen/Pelvis CT 10/11/24 08:00 IMPRESSION: Acute cholecystitis with inflammatory process affecting the right upper quadrant and transiting hepatic flexure of the colon. Reading [facility] Discharge Plan Triage Chief Complaint: General Illness ED Provider: Darron [place] Dx/Rx/DC Orders Clinical Impression: Abdominal pain, Prostate cancer, Metastasis to bone, Paroxysmal atrial flutter, Acute cholecystitis Prescriptions: No Action albuterol sulfate [Ventolin HFA] 90 mcg/actuation HFA aerosol inhaler 2 puff INHALATION Q6H PRN (Reason: Asthma) Eligard (3 month) 22.5 mg syringe subcut polyethylene glycol 3350 [Miralax] 17 gram/dose powder PO QDAY PRN flecainide 100 mg tablet 100 mg PO BID Qty: 180 3RF metoprolol succinate 100 mg tablet extended release 24 hr 100 mg PO DAILY Qty: 90 3RF rivaroxaban 20 mg tablet 20 mg PO QHS Qty: 90 3RF lidocaine-prilocaine 2.5-2.5 % cream 1 applic topical ONCE PRN (Reason: port access) 30 Days Qty: 30 2RF oxycodone 10 mg tablet 10 mg PO Q8H PRN (Reason: pain) Excedrin Migraine 250-250-65 mg tablet 1 tab PO Q4-6H PRN (Reason: pain) omeprazole 20 mg tablet,delayed release (DR/EC) 20 mg PO DAILY albuterol sulfate 2.5 MG/3 ML solution for nebulization 2.5 mg INHALATION Q6H PRN PRN (Reason: Asthma) montelukast 10 MG tablet 10 mg PO QHS fluticasone propion-salmeterol [Advair Diskus] 100-50 mcg/dose blister with device 1 inh INHALATION DAILY calcium carbonate [Calcium 600] 600 mg calcium (1,500 mg) tablet 600 mg PO DAILY cholecalciferol (vitamin D3) [Vitamin D3] 50 mcg (2,000 unit) capsule 50 mcg PO DAILY tizanidine 4 mg tablet 4 mg PO TID albuterol sulfate 1.25 mg/3 mL solution for nebulization 1 inhalation 4X/DAY PRN PRN (Reason: shortness of breath or wheezing) Primary Care Provider: Carlitos Brewer Referrals: Carlitos Brewer DO [Primary Care Provider] - Print Language: Bengali Disposition Disposition: Acute Care Hospital [facility]
[2024-10-11 08:31] LABS: Troponin T High Sensitivity 30 ng/L (<=22)
[2024-10-11 08:35] LABS: ALB/GLOB Ratio 0.9 RATIO (0.9-2.4); AST(SGOT) 22 U/L (<=37); Alanine Aminotransfer ALT/SGPT 16 U/L (<=46); Albumin, Serum 3.4 g/dL (3.4-4.8); Alkaline Phosphatase 152 U/L (40-129); Anion Gap 14 (5-15); BUN 24 mg/dL (4-19); BUN/Creat Ratio 16.6 RATIO (10-20); Carbon Dioxide 20.6 mmol/L (21.0-32.0); Chloride 99 mmol/L (98-108); Creatinine, Serum 1.44 mg/dL (0.70-1.20); EST Glomerular Filtration Rate 55 (>60); Estimated Creatinine Clearance 63.94 ml/min (50-250); Globulin 3.6 g/dL (2.2-4.2); Glucose 149 mg/dL (70-99); Lipase 15 U/L (13-75); Potassium 3.6 mmol/L (3.3-5.1); Sodium Level 133 mmol/L (133-145); Total Bilirubin 0.99 mg/dL (0.00-1.30)
[2024-10-11 08:36] LABS: Pro- Brain NATRIURETIC PEPTIDE 896 pg/mL (<=900)
[2024-10-11] MEDS: Morphine 4 MG/ML Syringe IV (09:00)
[2024-10-11] MEDS: Ondansetron 4 MG/2 ML Vial IV (09:00)
[2024-10-11] MEDS: Ceftriaxone 2 GM in 0.9% Normal Saline (50mL MB+) 50 ML IV (09:48)
[2024-10-11] MEDS: Piperacil/Tazobactam 4.5 GM in 0.9% Normal Saline (100mL MB+) 100 ML IV (10:27)
--- NOTE | 2024-10-11 10:33 | EX.PCM.CON.S ---
Assessment & Plan Assessment/Plan (1) Acute cholecystitis due to biliary calculus: (2) Anticoagulant long-term use: PLAN: Plan Patient has had pain since Friday. And took his Xarelto at 9 PM last night. Would recommend cholecystostomy tube with cholecystectomy as an outpatient in 3 to 4 weeks. Discussed with patient and his son. Plan for admission for hospitalist. Due to taking the Xarelto at 9 PM last night we will plan for cholecystostomy tube to be placed tomorrow morning to talk with Dr. Velasco our radiologist. Hold Xarelto Pain control IV Zosyn Kitty Pruett M.D. Pager: [phone] [facility] [address] [place] [address], Outpatient Pavilion, [address] [place] [address] Office: [phone] HPI Consult Data Date of Consult: 10/11/24 HPI Narrative HPI Narrative: ELMIRA PLASENCIA, is a 63 M who presents to the ER due to right upper quadrant pain. Patient states started about Friday has had decreased appetite since then. Patient did take his Xarelto for A-fib last night at [address] abdomen pelvis consistent with acute cholecystitis with inflammation in the right upper quadrant. Patient was given Zosyn in the ER. White blood cell count was 11.7 with a shift. [facility] Medical History Hoarseness of voice Bilateral lower extremity edema Encounter for chemotherapy management History of steroid therapy Arthritis Dietary restriction Gastric reflux Patient uses snuff Shortness of breath on exertion History of pain when walking History of edema History of atrial fibrillation Encounter for education Metastasis to bone Regional lymph node metastasis present Rising PSA following treatment for malignant neoplasm of prostate Prostate cancer metastatic to intraabdominal lymph node Edema History of COVID-19 Wears hearing aid Wears contact lenses Alcohol use DVT (deep venous thrombosis) Back pain Injury of head and neck Migraine headache History of echocardiogram History of stress test Cardiology follow-up encounter Hypertension Prostate cancer Acute on chronic diastolic (congestive) heart failure Paroxysmal supraventricular tachycardia Asthma Paroxysmal atrial flutter (08/18/18) Intermittent palpitations Obesity Home Medications ?Medication ?Instructions ?Recorded ?Last Taken ?Type albuterol sulfate 90 mcg/actuation 2 puff inhalation Q6H PRN Asthma 09/07/18 11/15/20 06:00 History aerosol inhaler (Ventolin HFA) albuterol sulfate 2.5 mg/3 mL 2.5 mg inhalation Q6H PRN PRN 06/28/20 08/25/23 History (0.083 %) solution for nebulization Asthma montelukast 10 mg tablet 10 mg PO QHS asthma 07/05/20 09/09/23 History lidocaine-prilocaine 2.5 %-2.5 % 1 applic topical ONCE PRN port 07/07/23 Unknown Rx topical cream access 30 days #30 grams oxycodone 10 mg tablet 10 mg PO Q8H PRN pain 07/21/23 08/17/23 History calcium carbonate (Calcium 600) 600 mg PO DAILY 08/15/23 09/09/23 History cholecalciferol (vitamin D3) 50 50 mcg PO DAILY 08/15/23 09/09/23 History mcg (2,000 unit) capsule (Vitamin D3) hmqjkak-xubebphhqwsdp-jqhmenxm 250 1 tab PO Q4-6H PRN pain 10/06/23 Unknown History mg-250 mg-65 mg tablet (Excedrin Migraine) fluticasone 100 mcg-salmeterol 50 1 inh inhalation DAILY asthma 10/06/23 Unknown History mcg/dose blistr powdr for inhalation (Advair Diskus) omeprazole 20 mg tablet,delayed 20 mg PO DAILY 11/03/23 Unknown History release flecainide 100 mg tablet 100 mg PO BID #180 TABLETS 08/03/24 Unknown Rx leuprolide (3 month) 22.5 mg (3 mg subcut 08/03/24 Unknown History month) subcutaneous syringe (Justino) metoprolol succinate 100 mg 100 mg PO DAILY bp #90 tabs 08/03/24 Unknown Rx tablet,extended release 24 hr polyethylene glycol 3350 17 g PO QDAY PRN 08/03/24 Unknown History gram/dose oral powder (Miralax) rivaroxaban 20 mg tablet 20 mg PO QHS BLOOD THINNER #90 tabs 08/03/24 Unknown Rx albuterol sulfate 1.25 mg/3 mL 1 inhalation 4X/DAY PRN PRN 10/11/24 Unknown History solution for nebulization shortness of breath or wheezing tizanidine 4 mg tablet 4 mg PO TID 10/11/24 Unknown History Allergy/AdvReac Type Severity Reaction Status Date / Time ciprofloxacin (From Cipro) Allergy Unknown swelling Verified 10/11/24 07:05 Family History Mother CAD (coronary artery disease) Kidney disease Father Heart disease CHF Lung cancer Uncle Myocardial infarction Paternal from [place] age 38 Surgical History Hx of cystoscopy History of prostatectomy (07/05/20) History of amputation of finger of right hand History of left inguinal hernia repair History of bilateral inguinal hernia repair History of arthroscopy of left knee Social History household members: spouse current occupational status: employed Smoking Status: Never smoker Smokeless tobacco user: chewing tobacco and other alcohol intake: current alcohol intake frequency: a few times a week Alcohol type: beer details: 12 pack or more in a week substance use type: does not use caffeine: No ROS Constitutional Constitutional: Reports anorexia; Denies fever(s) Eyes Eyes: Denies blurry vision ENT HEENT: Denies dysphagia Cardiovascular Cardiovascular: Reports chest pain Respiratory/Chest Respiratory/Chest: Denies cough Gastrointestinal Gastrointestinal: Reports abdominal pain and nausea Genitourinary Genitourinary: Denies dysuria Musculoskeletal Musculoskeletal: Denies joint swelling Integumentary Integumentary: Denies jaundice Neurologic Neurologic: Denies focal weakness Psychiatric Psychiatric: Denies depression Endocrine Endocrinology: Denies palpitations Hematologic/Lymphatic Hematologic/Lymphatic: Denies easy bleeding Physical Exam Const alert, oriented x3 and no apparent distress HEENT normocephalic and head/scalp atraumatic Chest Chest Narrative: Left chest port in place clean dry and intact Resp normal respiratory effort Cardio regular rate GI soft to palpation; Negative for non-distended Palpation: tender epigastric, RUQ and Isbell's sign; Negative for guarding Extremity no clubbing, cyanosis or edema Neuro CN's II-XII intact bilaterally Psych mental status grossly normal Lab / Micro Data 10/11/24 07:45 10/11/24 07:45 Labs: Laboratory Results - last 24 hr 10/11/24 07:45: WBC 11.7 H, RBC 4.07 L, Hgb 11.4 L, Hct 34.4 L, MCV 84.5, MCH 28.0, MCHC 33.1, RDW Std Deviation 45.7 H, RDW Coeff of Emily 14.8 H, Plt Count 358, MPV 9.2, Immature Gran % (Auto) 1.400 H, Neut % (Auto) 84.8 H, Lymph % (Auto) 5.4 L, Dickson % (Auto) 8.0, Eos % (Auto) 0.1, Baso % (Auto) 0.3, Absolute Neuts (auto) 10.0 H, Absolute Lymphs (auto) 0.63 L, Nucleated RBC % 0, Sodium 133, Potassium 3.6, Chloride 99, Carbon Dioxide 20.6 L, Anion Gap 14, BUN 24 H, Creatinine 1.44 H, Estim Creat Clear Calc 63.94, Est GFR (MDRD) Non-Af 55 L, BUN/Creatinine Ratio 16.6, Glucose 149 H, Calcium 9.0, Total Bilirubin 0.99, AST 22, ALT 16, Alkaline Phosphatase 152 H, Troponin T High Sens 30 H, NT pro BNP II 896, Total Protein 7.0, Albumin 3.4, Globulin 3.6, Albumin/Globulin Ratio 0.9, Lipase 15 Imaging Radiology Impression Chest CTA 10/11/24 07:46 IMPRESSION: 1. No evidence of pulmonary emboli. 2. Aneurysmal dilatation of the ascending thoracic aorta. 3. Atelectasis or pneumonia in the middle lobe of the right lung in the lower lobe of both lungs as described. 4. Other findings as noted. Reading Location: [id number] Abdomen/Pelvis CT 10/11/24 08:00 IMPRESSION: Acute cholecystitis with inflammatory process affecting the right upper quadrant and transiting hepatic flexure of the colon. Reading Location: [facility] Charges/Coding Visit Charges Inpatient E&M: 26560 Init Hosp L3
[2024-10-11 10:54] LABS: Troponin T High Sens 2 HR 27 ng/L (<=22)
--- NOTE | 2024-10-11 11:32 | ED.RN ---
COMMUNICATION ABOUT ZIRTHOMAX AND DELAY OF IT BEING ADMIN. DR. SALEH SAID NO NEED FOR ZITHROMAX. MED DISCONTINUED PER MD ORDER'
--- NOTE | 2024-10-11 11:39 | CASEMGMT ---
Care Management Face to Face with patient for initial transition planning/care coordination assessment in the ED.? This principal technical writer introduced self and role at [facility]. Patient alert and oriented. Patient willing to participate in assessment and is able to answer all questions appropriately.? Care providers, pharmacy, and demographics verified. Admitting Diagnosis: ??Acute cholecystitis Other diagnosis history: ?prostate cancer, DVT, hypertension, CHF, asthma PCP: ?[facility] Specialists: ?Kameron Diaz, Carmen iDaz Preferred Pharmacy:? [facility] Pharmacy Insurance: ?[place] Prescription Benefit: ?Yes Living Will/HPOA: ?patient states he has completed, to bring in copies when able LNOK: ? Living Arrangements: ?patient lives with in one story home, patient mostly independent with ADLs, assists when needed Transportation: ? transports DME: ?Cane, shower chair, lift chair, blood pressure cuff, pulse ox, nebulizer HHC: ?None SNF/Rehab: ?None Community Resources: ?None Behavioral Health History: ? states she feels patient has depression and anxiety from the cancer but patient has not been diagnosed Patient goals: Uncertain at this time.? ?Patient denies any further needs or concerns at this time. Disposition Plan: admission to acute; RN CM/SW to follow for discharge planning needs that may arise Adriana Rubio, AWARD CLERK, SENIOR QUALITY ENGINEER
--- NOTE | 2024-10-11 12:07 | CASEMGMT ---
Social Work Patients last assessment was completed less than 30 days ago, patient verified no changes since last admission. Would like to discharge home when able. No further needs identified at this time. Adriana Rubio, PLANT ELECTRICAL ENGINEER, [employer]
[2024-10-11 12:09] LABS: Troponin T High Sens 4 HR 24 ng/L (<=22)
[2024-10-11] MEDS: tiZANidine HCl 2 MG Tablet 4 MG PO ×2 (13:38→21:29)
[2024-10-11] MEDS: 0.9% Normal Saline (1000mL) 1,000 ML 150 ML IV ×2 (17:30→23:46)
--- NOTE | 2024-10-11 18:32 | HP.PCM.HOS_ITS ---
HPI - General General Date of Admission: 10/11/24 HPI Narrative ELMIRA PLASENCIA, is a 63 M who presents to the hospital with abdominal pain that was occasionally going up into the right side of his chest, he is also having some left-sided upper back pain that his thinks might be related to new metastatic disease. He has a history of metastatic prostate cancer to his bones and he is very tender on his left upper back so is likely musculoskeletal in origin. In the ER he was found to have a slight leukocytosis to [address] scan of his abdomen pelvis demonstrated acute cholecystitis with pericholecystic fluid and inflammation. General surgery was consulted in the ER and they felt that given the severity of inflammation and the duration of symptoms that he would be better served with a cholecystostomy tube especially since he has also been on Xarelto for A-fib. [facility] Medical History (Updated 10/11/24 @ 12:58 by Rosario Betts) Anxiety Atrial fibrillation Hoarseness of voice Bilateral lower extremity edema Encounter for chemotherapy management History of steroid therapy Arthritis Dietary restriction Gastric reflux Patient uses snuff Shortness of breath on exertion History of pain when walking History of edema History of atrial fibrillation Encounter for education Metastasis to bone Regional lymph node metastasis present Rising PSA following treatment for malignant neoplasm of prostate Prostate cancer metastatic to intraabdominal lymph node Edema History of COVID-19 Wears hearing aid Wears contact lenses Alcohol use DVT (deep venous thrombosis) Back pain Injury of head and neck Migraine headache History of echocardiogram History of stress test Cardiology follow-up encounter Hypertension Prostate cancer Acute on chronic diastolic (congestive) heart failure Paroxysmal supraventricular tachycardia Asthma Paroxysmal atrial flutter (08/18/18) Intermittent palpitations Obesity Home Medications ?Medication ?Instructions ?Recorded ?Last Taken ?Type albuterol sulfate 90 mcg/actuation 2 puff inhalation Q 6H PRN Asthma 09/07/18 11/15/20 06:00 History aerosol inhaler (Ventolin HFA) albuterol sulfate 2.5 mg/3 mL 1.25 mg inhalation Q6H P RN PRN 06/28/20 08/25/23 History (0.083 %) solution for nebulization Asthma montelukast 10 mg tablet 10 mg PO QHS asthma 07/05/20 09/09/23 History calcium carbonate (Calcium 600) 600 mg PO DAILY supple ment 08/15/23 09/09/23 History cholecalciferol (vitamin D3) 50 50 mcg PO DAILY supple ment 08/15/23 09/09/23 History mcg (2,000 unit) capsule (Vitamin D3) fluticasone 100 mcg-salmeterol 50 1 inh inhalation Q12 H asthma 10/06/23 Unknown History mcg/dose blistr powdr for inhalation (Advair Diskus) omeprazole 20 mg tablet,delayed 20 mg PO DAILY gerd Unknown History release flecainide 100 mg tablet 100 mg PO BID bp #180 TABLET S 08/03/24 Unknown Rx leuprolide (3 month) 22.5 mg (3 mg subcut .q 3 month h ormone 08/03/24 Unknown History month) subcutaneous syringe (EliPole Stard) metoprolol succinate 100 mg 100 mg PO DAILY bp #90 tab s 08/03/24 Unknown Rx tablet,extended release 24 hr rivaroxaban 20 mg tablet 20 mg PO QHS BLOOD THINNER # 90 tabs 08/03/24 Unknown Rx albuterol sulfate 1.25 mg/3 mL 1 inhalation 4X/DAY PRN PRN 10/11/24 Unknown History solution for nebulization shortness of breath or wheez ing tizanidine 4 mg tablet 4 mg PO TID 10/11/24 Unknown History Allergy/AdvReac Type Severity Reaction Status Date / Time ciprofloxacin (From Cipro) Allergy Unknown swelling Verified 10/11/24 07:05 Family History Mother CAD (coronary artery disease) Kidney disease Father Heart disease CHF Lung cancer Uncle Myocardial infarction Paternal from [place] age 38 Surgical History Hx of cystoscopy History of prostatectomy (07/05/20) History of amputation of finger of right hand History of left inguinal hernia repair History of bilateral inguinal hernia repair History of arthroscopy of left knee Social History household members: spouse current occupational status: employed Smoking Status: Never smoker Smokeless tobacco user: chewing tobacco and other alcohol intake: current alcohol intake frequency: a few times a week Alcohol type: beer details: 12 pack or more in a week substance use type: does not use caffeine: No ROS Constitutional Constitutional: Reports malaise; Denies chills, fatigue or fever(s) Eyes Eyes: Denies blurry vision ENT HEENT: Denies headache(s) or nasal discharge Cardiovascular Cardiovascular: Denies chest pain, dyspnea on exertion or syncope Respiratory/Chest Respiratory/Chest: Denies cough, shortness of breath at rest or shortness of breath with exertion Gastrointestinal Gastrointestinal: Reports abdominal pain; Denies constipation, diarrhea, nausea or vomiting Genitourinary Genitourinary: Denies dysuria Neurologic Neurologic: Denies focal weakness, numbness or tremor(s) Psychiatric Psychiatric: Denies anxiety or depression Vital Signs Vital Signs Vital Signs: 10/11/24 07:05 10/11/24 07:36 10/11/24 09:04 Temperature 98.2 F 98.2 F Temperature Source Oral Oral Pulse Rate 82 80 Respiratory Rate 20 H 13 Respiratory Effort Short of Breath Respiratory Depth Respiratory Pattern Tachypnea Blood Pressure 101/72 102/68 Blood Pressure Mean 81 79 Blood Pressure Source Blood Pressure Position Blood Pressure Location Pulse Ox 98 93 Oxygen Delivery Method Room Air Room Air 10/11/24 11:00 10/11/24 12:26 10/11/24 12:58 Temperature 98.3 F 98.2 F Temperature Source Oral Pulse Rate 88 88 75 Respiratory Rate 16 16 18 Respiratory Effort Respiratory Depth Respiratory Pattern Blood Pressure 96/64 96/64 97/56 L Blood Pressure Mean 74 74 69 Blood Pressure Source Manual Blood Pressure Position Semi-Fowlers Blood Pressure Location Right Arm Pulse Ox 98 98 91 Oxygen Delivery Method Room Air 10/11/24 13:00 10/11/24 15:18 10/11/24 17:06 Temperature 98.2 F 98.0 F Temperature Source Oral Oral Pulse Rate 68 73 Respiratory Rate 18 18 Respiratory Effort Normal Respiratory Depth Normal Respiratory Pattern Normal Blood Pressure 89/43 L 90/52 L Blood Pressure Mean 58 64 Blood Pressure Source Monitor Monitor Blood Pressure Position Semi-Fowlers Semi-Fowlers Blood Pressure Location Right Arm Right Arm Pulse Ox 93 94 Oxygen Delivery Method Room Air Room Air Room Air Weight Weight: 219 lb 15.988 oz Body Mass Index (BMI) 30.7 Physical Exam Narrative General: Alert, Oriented x3, Cooperative, No apparent distress HEENT: Atraumatic, PERRLA, EOMI, Normocephalic Oral: Moist Mucosa Neck: Supple, No JVD Lungs: Diminished, Normal air movement, No rhonchi, No wheeze, No rales Cardiovascular: Regular rate, Regular Rhythm, Normal S1, Normal S2, No murmurs Abdomen: Soft, right upper quadrant TTP, Non-Distended, No Hepato-splenomegaly Extremities: Trace edema, Capillary Refill Less than 3 Seconds Skin: No rashes, No breakdown Musculoskeletal: No Tenderness to Palpation of Joints or Extremities Neurological: No focal neurological deficits, Motor Exam 5/5 strength throughout, Sensory exam intact to light touch and pain Psych/Mental Status: Normal Affect, Appropriate Results Lab / Micro Data 10/11/24 07:45 10/11/24 07:45 Labs: Laboratory Results - last 24 hr 10/11/24 07:45: WBC 11.7 H, RBC 4.07 L, Hgb 11.4 L, Hct 34.4 L, MCV 84.5, MCH 28.0, MCHC 33.1, RDW Std Deviation 45.7 H, RDW Coeff of Emily 14.8 H, Plt Count 358, MPV 9.2, Immature Gran % (Auto) 1.400 H, Neut % (Auto) 84.8 H, Lymph % (Auto) 5.4 L, [place] % (Auto) 8.0, Eos % (Auto) 0.1, Baso % (Auto) 0.3, Absolute Neuts (auto) 10.0 H, Absolute Lymphs (auto) 0.63 L, Nucleated RBC % 0, Sodium 133, Potassium 3.6, Chloride 99, Carbon Dioxide 20.6 L, Anion Gap 14, BUN 24 H, Creatinine 1.44 H, Estim Creat Clear Calc 63.94, Est GFR (MDRD) Non-Af 55 L, BUN/Creatinine Ratio 16.6, Glucose 149 H, Calcium 9.0, Total Bilirubin 0.99, AST 22, ALT 16, Alkaline Phosphatase 152 H, Troponin T High Sens 30 H, NT pro BNP II 896, Total Protein 7.0, Albumin 3.4, Globulin 3.6, Albumin/Globulin Ratio 0.9, Lipase 15 10/11/24 09:45: Troponin T Hi Sens 2 Hr 27 H 10/11/24 11:44: Troponin T Hi Sens 4Hr 24 H Micro: Microbiology 10/11/24 10:20 Urine, Clean Catch Legionella Antigen - Final 10/11/24 10:20 Urine, Clean Catch Streptococcus pneumoniae Antigen (M - Final Imaging Radiology Impression Chest CTA 10/11/24 07:46 IMPRESSION: 1. No evidence of pulmonary emboli. 2. Aneurysmal dilatation of the ascending thoracic aorta. 3. Atelectasis or pneumonia in the middle lobe of the right lung in the lower lobe of both lungs as described. 4. Other findings as noted. Reading Location: [id number] Abdomen/Pelvis CT 10/11/24 08:00 IMPRESSION: Acute cholecystitis with inflammatory process affecting the right upper quadrant and transiting hepatic flexure of the colon. Reading Location[facility] Assessment & Plan Assessment/Plan (1) Acute cholecystitis: PLAN: Plan 1. Acute cholecystitis ? Continue with Zosyn ? Continue with aggressive IV fluids ? He can have clear liquids until midnight when he will be n.p.o. ? Will continue to hold Xarelto-after plan for cholecystostomy tube tomorrow morning ? Not septic, he had 1 transient blood pressure at 89 systolic but otherwise does not meet the other criteria ? Given the fact that he is immunocompromise will obtain blood cultures, it is not obtained in the ER prior to getting of Rocephin, azithromycin, and Zosyn therefore they will be low yield unless he has a significant bacterial burden 2. Metastatic prostate cancer ? This is obviously complicating his care with chemotherapy and hormonal therapy that he has been on ? Will hold his home medications for now he can restart them on discharge ? Unfortunately his cancer has progressed through his treatments and oncology is considering for him to go to the [facility] [place] to enter into drug trials versus radioligand therapy 3. Essential HTN/paroxysmal A-fib ? Given his softer blood pressures we will hold his metoprolol however he is also on flecainide therefore we will continue the flecainide given the risk of an arrhythmia ? Will hold his Xarelto ? Will monitor make adjustments as necessary 4. GERD ? Stable ? Continue with PPI 5. Asthma ? Continue with Singulair and his home inhaler as needed ? Stable 6. Ascending aortic aneurysm ? Measuring about 4.3 cm. He will need to follow-up with us as an outpatient DVT: Heparin 75 minutes was spent on direct patient care, including documentation as well as chart review and collaboration with colleagues Charges/Coding Visit Charges Inpatient E&M: 29494 Init Hosp L3
[2024-10-11] MEDS: Piperacil/Tazobactam 3.375 GM in 0.9% Normal Saline (50mL MB+) 50 ML IV (21:26)
[2024-10-11] MEDS: Montelukast 10 MG Tablet PO (21:29)
[2024-10-11] MEDS: Flecainide 100 MG Tablet PO (21:29)
[2024-10-11] MEDS: Heparin Injection (Vial) 5,000 UNIT/ML VIAL 5000 UNIT SC (21:29)
[2024-10-11] MEDS: oxyCODONE 5 MG Tablet PO (21:44)
[2024-10-11] MEDS: Acetaminophen 325 MG Tablet 650 MG PO (21:45)
[2024-10-11] MEDS: 0.9% Normal Saline (250mL Bag) 250 ML 15 ML IV (21:51)
[2024-10-12] VITALS (19 sets, daily range): BP systolic 81–119; BP diastolic 47–71; PULSE 48–68; RESP 12–18; TEMP 36.2–36.8; O2SAT 92–100
[2024-10-12 04:48] LABS: Absolute Lymphocyte Count 0.43 X10^3/uL (0.83-4.51); Absolute Neutrophil Count 5.6 X10^3/uL (2.0-7.7); Basophil# 0.02 X10^3/uL; Basophil% 0.3 % (0-1); Eosinophil# 0.09 X10^3/uL; Eosinophils% 1.4 % (0-5); Hematocrit 27.3 % (40-54); Hemoglobin 9.1 g/dL (13.0-16.5); Lymphocyte # 0.43 X10^3/ul (0.83-4.51); Lymphocyte % 6.5 % (19-41); Mean Corp Hgb Conc 33.3 g/dL (32-36); Mean Corpuscular Hgb 28.5 pg (27.0-32.0); Mean Corpuscular Volume 85.6 fL (80-94); Monocyte# 0.41 X10^3/uL; Monocyte% 6.2 % (0-10); NRBC Flagged by Analyzer 0 % (0-5); Neutrophil # 5.57 X10^3/uL (2.7-7.7); Neutrophil % 84.8 % (47-70); POSITIVE DIFFERENTIAL YES; Platelet Count 263 K/mm3 (150-450); RBC Distribution Width CV 15.1 % (11.6-14.6); RBC Distribution Width SD 46.9 fl (35.1-43.9); Red Blood Count 3.19 M/mm3 (4.6-6.2); White Blood Count 6.6 K/mm3 (4.4-11.0)
[2024-10-12 05:06] LABS: International Normalized Ratio 1.6
[2024-10-12 05:07] LABS: Partial Thromboplast Time 49.3 Seconds (24.1-36.2)
[2024-10-12 05:09] LABS: AST(SGOT) 34 U/L (<=37); Alanine Aminotransfer ALT/SGPT 24 U/L (<=46); Albumin, Serum 2.8 g/dL (3.4-4.8); Alkaline Phosphatase 122 U/L (40-129); Anion Gap 10 (5-15); BUN 19 mg/dL (4-19); BUN/Creat Ratio 22.5 RATIO (10-20); Bilirubin, Direct 0.31 mg/dL (0.00-0.30); Calcium,Total 8.2 mg/dL (7.6-11.0); Carbon Dioxide 22.5 mmol/L (21.0-32.0); Chloride 102 mmol/L (98-108); Creatinine, Serum 0.86 mg/dL (0.70-1.20); EST Glomerular Filtration Rate 99 (>60); Estimated Creatinine Clearance 108.57 ml/min (50-250); Globulin 3.1 g/dL (2.2-4.2); Glucose 108 mg/dL (70-99); Potassium 3.7 mmol/L (3.3-5.1); Protein, Total 5.9 g/dL (5.9-8.4); Sodium Level 134 mmol/L (133-145); Total Bilirubin 0.52 mg/dL (0.00-1.30)
[2024-10-12] MEDS: Piperacil/Tazobactam 3.375 GM in 0.9% Normal Saline (50mL MB+) 50 ML IV ×3 (05:20→21:04)
[2024-10-12] MEDS: tiZANidine HCl 2 MG Tablet 4 MG PO ×3 (05:21→21:05)
[2024-10-12] MEDS: oxyCODONE 5 MG Tablet PO (05:29)
[2024-10-12] MEDS: Acetaminophen 325 MG Tablet 650 MG PO ×2 (05:30→21:05)
[2024-10-12] MEDS: 0.9% Normal Saline (1000mL) 1,000 ML 150 ML IV ×3 (06:10→17:38)
--- NOTE | 2024-10-12 08:00 | CT_ITS ---
EXAM: CT-guided percutaneous cholecystostomy. CLINICAL HISTORY: Hydrops of the gallbladder with a stone in the neck of the gallbladder. Sepsis. COMPARISON: Prior study dated October 11, 2024. TECHNIQUE: CT-guided percutaneous cholecystostomy. The procedure as well as the benefits and possible complications including infection and bleeding were explained to the patient and the patient's daughter. Informed consent was obtained. The patient was in the supine position. Conscious sedation was performed. The patient received 2 mg of Versed and 25 mcg of fentanyl intravenously. Conscious sedation was started at 9:21 a.m. and terminated at 9:47 a.m.. The patient was independently monitored by the department nurse. The overlying skin in the right upper quadrant was prepped and draped in the usual sterile fashion. Following local anesthetic application, a direct puncture into the gallbladder with an 8 [place] all-purpose drainage catheter was performed. 160 mL of purulent material was aspirated. The patient tolerated the procedure well. Dose report: CTDI L volume: 26 mGy. DLP: 1290.92 FINDINGS: Successful CT-guided percutaneous cholecystostomy with placement of an [address] [place] [address]/Biopsy/Inj or Needle Placement IMPRESSION: Successful CT-guided percutaneous cholecystostomy with placement of an 8 [place] all-purpose drainage catheter. The patient tolerated the procedure well. No immediate complication was noted. Reading Location: [place] [id number]
[2024-10-12] MEDS: Midazolam 2 MG/2 ML Syringe IV ×2 (09:21→09:36)
[2024-10-12] MEDS: fentaNYL 100 MCG/2 ML Ampul IV (09:22)
[2024-10-12] MEDS: Lidocaine 2% (20 ml mdv) 20 ML Vial INFILT (09:35)
--- NOTE | 2024-10-12 09:35 | PN.SURG_ITS ---
Subjective Subjective Cholecystostomy tube was placed this morning 460 cc. Objective Data Objective Data Vital Signs: Vital Signs Temp Pulse Resp BP Pulse Ox O2 Del Method 97.5 F L 51 L 14 81/52 L 95 Room Air 10/12/24 08:28 10/12/24 08:28 10/12/24 08:28 10/12/24 08:28 10/12/24 08:28 10/12/24 08:28 Oxygen Delivery Method Room Air Weight: 219 lb 15.988 oz Body Mass Index (BMI) 30.7 Intake & Output: Intake and Output for Last 24 Hours 10/10/24 10/11/24 10/12/24 23:59 23:59 23:59 Intake Total 3330 / 3330 1118.5 / 1118.5 Output Total 300 / 300 Balance 3330 / 3330 818.5 / 818.5 Lab / Micro Data 10/12/24 04:05 10/12/24 04:05 Labs: Laboratory Results - last 24 hr 10/11/24 09:45: Troponin T Hi Sens 2 Hr 27 H 10/11/24 11:44: Troponin T Hi Sens 4Hr 24 H 10/12/24 04:05: WBC 6.6, RBC 3.19 L, Hgb 9.1 L, Hct 27.3 L, MCV 85.6, MCH 28.5, MCHC 33.3, RDW Std Deviation 46.9 H, RDW Coeff of Emily 15.1 H, Plt Count 263, MPV 9.0, Immature Gran % (Auto) 0.800, Neut % (Auto) 84.8 H, Lymph % (Auto) 6.5 L, [place] % (Auto) 6.2, Eos % (Auto) 1.4, Baso % (Auto) 0.3, Absolute Neuts (auto) 5.6, Absolute Lymphs (auto) 0.43 L, Nucleated RBC % 0, PT 19.0 H, INR 1.6, APTT 49.3 H, Sodium 134, Potassium 3.7, Chloride 102, Carbon Dioxide 22.5, Anion Gap 10, BUN 19, Creatinine 0.86, Estim Creat Clear Calc 108.57, Est GFR (MDRD) Non- Af 99, BUN/Creatinine Ratio 22.5 H, Glucose 108 H, Calcium 8.2, Total Bilirubin 0.52, Direct Bilirubin 0.31 H, AST 34, ALT 24, Alkaline Phosphatase 122, Total Protein 5.9, Albumin 2.8 L, Globulin 3.1 Micro: Microbiology 10/11/24 10:20 Urine, Clean Catch Legionella Antigen - Final 10/11/24 10:20 Urine, Clean Catch Streptococcus pneumoniae Antigen (M - Final Physical Exam Const oriented x3 GI soft to palpation GI Narrative: Tender in the right upper quadrant near tube insertion, cholecystostomy tube reddish with some thicker saez material Assessment & Plan Assessment/Plan (1) Acute cholecystitis due to biliary calculus: (2) Anticoagulant long-term use: PLAN: Plan Patient currently getting cholecystostomy tube in radiology. Will plan for an outpatient cholecystectomy. Will plan to send patient home on Augmentin for 5 more days. If patient is able to tolerate diet we will plan for discharge tomorrow morning. Will have patient follow-up in 1 week and plan for robotic cholecystectomy tentatively 10/26/2024. Kitty Pruett M.D. Pager: [phone] [facility] [address] [place] [address], [facility], [address] [place] [address] Office: [phone] Charges/Coding Visit Charges Inpatient E&M: 46218 Subs Hosp L2
--- NOTE | 2024-10-12 10:00 | EKG12_ITS ---
Test Reason : AM EKG Blood Pressure : */* mmHG Vent. Rate : 56 BPM Atrial Rate : 56 BPM P-R Int : 196 ms QRS Dur : 128 ms QT Int : 502 ms P-R-T Axes : 37 -12 25 degrees QTcB Int : 484 ms Sinus bradycardia Non-specific intra-ventricular conduction block Abnormal ECG When compared with ECG of 11-Oct-2024 07:58, MANUAL COMPARISON REQUIRED DATA IS UNCONFIRMED Confirmed by SAURAV MUNIZ, ASHOK ([id number]), art editor KRYSTINA HOWELL ([id number]) on 10/13/2024 7:27:09 AM Referred By: SALINA Confirmed By: SAHOK MG MD
[2024-10-12] MEDS: Lidocaine 5% Patch 1 PATCH TOPICAL (12:01)
--- NOTE | 2024-10-12 12:46 | EX.PCM.DISCH ---
Discharge Instructions Diet Discharge Diet: Light diet - advance as tolerated Dressing / Incision Call your doctor if your incision/area has: Continuous Slow Oozing, Sudden Increased Bleeding, Increased Pain/ Swelling and Increased Redness Remove Dressing in: do not remove dressing (If starts to come loose let our office know so we can get another bandage to replace. Keep bandage clean and dry) Cleanse incision/area with: Keep Dressing Clean & Dry (Tape off with a Ziploc bag if showering to keep dressing dry) Additional Dressing/Incision Instructions:: Keep SUKHDEV log of drainage and bring to appointment. Extra dressing will be sent home with you if the other comes off?okay to come in to get it replaced but bring the dressing with you. Follow Up Care Please Follow Up With: Kitty Pruett MD When: Call the office for a follow-up appointment mid next week-week of October 18; tentative robotic cholecystectomy date October 26 hold Xarelto x 3 days (last dose 10/22/24) Test Results: Test results from this visit will be discussed in further detail at your follow-up appointment, if applicable. Discharge Plan Admission Admit Date/Time: 10/11/24 12:15 Attending Provider: Andrews Watkins Primary Care Provider: Carlitos Brewer Consulting Providers: Kitty Pruett Instructions Patient Instructions: Luis Chopra Drain Tube Dc, Post Op Drain Emptying ROSSY Stinson RN Procedural Sedation Discharge Orders/Prescriptions Prescriptions: New amoxicillin-pot clavulanate 875-125 mg tablet 1 tab PO Q12H Qty: 10 0RF oxycodone 5 mg capsule 5 mg PO Q6H PRN (Reason: pain) 3 Days Qty: 5 0RF Continued albuterol sulfate [Ventolin HFA] 90 mcg/actuation HFA aerosol inhaler 2 puff INHALATION Q6H PRN (Reason: Asthma) Eligard (3 month) 22.5 mg syringe subcut .q 3 month flecainide 100 mg tablet 100 mg PO BID Qty: 180 3RF metoprolol succinate 100 mg tablet extended release 24 hr 100 mg PO DAILY Qty: 90 3RF rivaroxaban 20 mg tablet 20 mg PO QHS Qty: 90 3RF omeprazole 20 mg tablet,delayed release (DR/EC) 20 mg PO DAILY albuterol sulfate 2.5 MG/3 ML solution for nebulization 1.25 mg INHALATION Q6H PRN PRN (Reason: Asthma) montelukast 10 MG tablet 10 mg PO QHS fluticasone propion-salmeterol [Advair Diskus] 100-50 mcg/dose blister with device 1 inh INHALATION Q12H calcium carbonate [Calcium 600] 600 mg calcium (1,500 mg) tablet 600 mg PO DAILY cholecalciferol (vitamin D3) [Vitamin D3] 50 mcg (2,000 unit) capsule 50 mcg PO DAILY tizanidine 4 mg tablet 4 mg PO TID albuterol sulfate 1.25 mg/3 mL solution for nebulization 1 inhalation 4X/DAY PRN PRN (Reason: shortness of breath or wheezing) Referrals / Follow Up: Carlitos Brewer DO [Primary Care Provider] - 10/25/24 1:00 pm Kitty Pruett MD [Med Staff - Active Staff] - 10/26/24 8:30 am Disposition Disposition (needs filled in before D/C Order can be placed): Home, Self Care
--- NOTE | 2024-10-12 12:59 | CASEMGMT ---
Noted pt was referred to palliative care. Email to palliative care to confirm if pt was active, received response back that pt declined when referred in July.
--- NOTE | 2024-10-12 13:17 | PCM.PN.HOSP ---
Subjective Subjective Doing well today, no issues overnight. Did get his cholecystostomy tube with 160 cc immediately drained Objective Data Objective Data Vital Signs: Vital Signs Temp Pulse Resp BP Pulse Ox O2 Del Method O2 Flow Rate 97.6 F L 59 L 16 99/68 93 Room Air 4 10/12/24 12:02 10/12/24 12:02 10/12/24 12:02 10/12/24 12:02 10/12/24 12:02 10/12/24 12:02 10/12/24 09:50 Oxygen Flow Rate (L/min) 4 Oxygen Delivery Method Room Air Weight: 219 lb 15.988 oz Body Mass Index (BMI) 30.7 Intake & Output: Intake and Output for Last 24 Hours 10/11/24 10/12/24 10/13/24 03:59 03:59 03:59 Intake Total 3380 / 3380 1741.0 / 1741.0 Output Total 490 / 490 Balance 3380 / 3380 1251.0 / 1251.0 Lab / Micro Data 10/12/24 04:05 10/12/24 04:05 Labs: Laboratory Results - last 24 hr 10/12/24 04:05: WBC 6.6, RBC 3.19 L, Hgb 9.1 L, Hct 27.3 L, MCV 85.6, MCH 28.5, MCHC 33.3, RDW Std Deviation 46.9 H, RDW Coeff of Emily 15.1 H, Plt Count 263, MPV 9.0, Immature Gran % (Auto) 0.800, Neut % (Auto) 84.8 H, Lymph % (Auto) 6.5 L, [place] % (Auto) 6.2, Eos % (Auto) 1.4, Baso % (Auto) 0.3, Absolute Neuts (auto) 5.6, Absolute Lymphs (auto) 0.43 L, Nucleated RBC % 0, PT 19.0 H, INR 1.6, APTT 49.3 H, Sodium 134, Potassium 3.7, Chloride 102, Carbon Dioxide 22.5, Anion Gap 10, BUN 19, Creatinine 0.86, Estim Creat Clear Calc 108.57, Est GFR (MDRD) Non-Af 99, BUN/Creatinine Ratio 22.5 H, Glucose 108 H, Calcium 8.2, Total Bilirubin 0.52, Direct Bilirubin 0.31 H, AST 34, ALT 24, Alkaline Phosphatase 122, Total Protein 5.9, Albumin 2.8 L, Globulin 3.1 Micro: Microbiology 10/11/24 10:20 Urine, Clean Catch Legionella Antigen - Final 10/11/24 10:20 Urine, Clean Catch Streptococcus pneumoniae Antigen (M - Final Radiography Diagnostic Testing: Radiology Impression Biopsy CT 10/12/24 08:00 IMPRESSION: Successful CT-guided percutaneous cholecystostomy with placement of an 8 Ecuadorean all-purpose drainage catheter. The patient tolerated the procedure well. No immediate complication was noted. Reading Location: [place] [address] Physical Exam Narrative General: Alert, Oriented x3, Cooperative, No apparent distress HEENT: Atraumatic, PERRLA, EOMI, Normocephalic Oral: Moist Mucosa Neck: Supple, No JVD Lungs: Diminished, Normal air movement, No rhonchi, No wheeze, No rales Cardiovascular: Regular rate, Regular Rhythm, Normal S1, Normal S2, No murmurs Abdomen: Soft, right upper quadrant TTP, Non-Distended, No Hepato-splenomegaly Extremities: Trace edema, Capillary Refill Less than 3 Seconds Skin: No rashes, No breakdown Musculoskeletal: No Tenderness to Palpation of Joints or Extremities Neurological: No focal neurological deficits, Motor Exam 5/5 strength throughout, Sensory exam intact to light touch and pain Psych/Mental Status: Normal Affect, Appropriate Assessment & Plan Assessment/Plan (1) Acute cholecystitis: PLAN: Plan 1. Acute cholecystitis ? Continue with Zosyn ? Continue with aggressive IV fluids ?Obtain his cholecystostomy tube today, restart Xarelto tomorrow ? Not septic, he had 1 transient blood pressure at 89 systolic but otherwise does not meet the other criteria ? Given the fact that he is immunocompromise will obtain blood cultures, it is not obtained in the ER prior to getting of Rocephin, azithromycin, and Zosyn therefore they will be low yield unless he has a significant bacterial burden ? Bile is also being cultured after his cholecystostomy placement 2. Metastatic prostate cancer ? This is obviously complicating his care with chemotherapy and hormonal therapy that he has been on ? Will hold his home medications for now he can restart them on discharge ? Unfortunately his cancer has progressed through his treatments and oncology is considering for him to go to the main campus in [place] to enter into drug trials versus radioligand therapy 3. Essential HTN/paroxysmal A-fib ? Given his softer blood pressures we will hold his metoprolol however he is also on flecainide therefore we will continue the flecainide given the risk of an arrhythmia ? Will hold his Xarelto ? Will monitor make adjustments as necessary 4. GERD ? Stable ? Continue with PPI 5. Asthma ? Continue with Singulair and his home inhaler as needed ? Stable 6. Ascending aortic aneurysm ? Measuring about 4.3 cm. He will need to follow-up with us as an outpatient DVT: Heparin Charges/Coding Visit Charges Inpatient E&M: 64555 Subs Hosp L2
[2024-10-12] MEDS: Heparin Injection (Vial) 5,000 UNIT/ML VIAL 5000 UNIT SC ×2 (14:03→21:05)
[2024-10-12] MEDS: Flecainide 100 MG Tablet PO (21:05)
[2024-10-12] MEDS: Montelukast 10 MG Tablet PO (21:05)
[2024-10-13] MEDS: 0.9% Normal Saline (1000mL) 1,000 ML 100 ML IV (02:11)
[2024-10-13 02:22] VITALS: BP 140/84; PULSE 60; RESP 16; TEMP 36.4; O2SAT 96
[2024-10-13] MEDS: Heparin Injection (Vial) 5,000 UNIT/ML VIAL 5000 UNIT SC (04:52)
[2024-10-13] MEDS: tiZANidine HCl 2 MG Tablet 4 MG PO (04:52)
[2024-10-13] MEDS: Acetaminophen 325 MG Tablet 650 MG PO (04:52)
[2024-10-13] MEDS: Piperacil/Tazobactam 3.375 GM in 0.9% Normal Saline (50mL MB+) 50 ML IV (04:52)
[2024-10-13 05:00] LABS: Absolute Lymphocyte Count 0.39 X10^3/uL (0.83-4.51); Absolute Neutrophil Count 2.9 X10^3/uL (2.0-7.7); Basophil# 0.02 X10^3/uL; Basophil% 0.5 % (0-1); Eosinophil# 0.09 X10^3/uL; Eosinophils% 2.5 % (0-5); Hemoglobin 8.8 g/dL (13.0-16.5); Lymphocyte # 0.39 X10^3/ul (0.83-4.51); Lymphocyte % 10.6 % (19-41); Mean Corp Hgb Conc 32.6 g/dL (32-36); Mean Corpuscular Hgb 27.8 pg (27.0-32.0); Mean Corpuscular Volume 85.2 fL (80-94); Monocyte# 0.26 X10^3/uL; Monocyte% 7.1 % (0-10); NRBC Flagged by Analyzer 0 % (0-5); Neutrophil # 2.89 X10^3/uL (2.7-7.7); Neutrophil % 78.8 % (47-70); POSITIVE DIFFERENTIAL YES; Platelet Count 264 K/mm3 (150-450); RBC Distribution Width CV 14.8 % (11.6-14.6); RBC Distribution Width SD 46.2 fl (35.1-43.9); Red Blood Count 3.17 M/mm3 (4.6-6.2); White Blood Count 3.7 K/mm3 (4.4-11.0)
[2024-10-13 05:38] LABS: Anion Gap 9 (5-15); BUN 12 mg/dL (4-19); BUN/Creat Ratio 18.8 RATIO (10-20); Calcium,Total 8.2 mg/dL (7.6-11.0); Carbon Dioxide 22.2 mmol/L (21.0-32.0); Chloride 104 mmol/L (98-108); Creatinine, Serum 0.65 mg/dL (0.70-1.20); EST Glomerular Filtration Rate 107 (>60); Estimated Creatinine Clearance 143.64 ml/min (50-250); Glucose 90 mg/dL (70-99); Potassium 3.8 mmol/L (3.3-5.1); Sodium Level 135 mmol/L (133-145)
[2024-10-13 07:00] VITALS: O2SAT 95
[2024-10-13 08:00] VITALS: BP 122/74; PULSE 66; RESP 18; TEMP 36.6; O2SAT 96
[2024-10-13] MEDS: Lidocaine 5% Patch 1 PATCH TOPICAL (08:09)
[2024-10-13] MEDS: Pantoprazole Sodium 20 MG Tablet PO ×2 (08:10)
[2024-10-13] MEDS: Flecainide 100 MG Tablet PO (08:10)
--- NOTE | 2024-10-13 08:16 | PN.SURG_ITS ---
Subjective Subjective Patient's SUKHDEV output bilious, right upper quadrant pain improved from last night, tolerating diet Objective Data Objective Data Vital Signs: Vital Signs Temp Pulse Resp BP Pulse Ox O2 Del Method O2 Flow Rate 97.8 F 66 18 122/74 H 96 Room Air 4 10/13/24 08:00 10/13/24 08:00 10/13/24 08:00 10/13/24 08:00 10/13/24 08:00 10/13/24 08:00 10/12/24 09:50 Oxygen Flow Rate (L/min) 4 Oxygen Delivery Method Room Air Weight: 219 lb 15.988 oz Body Mass Index (BMI) 30.7 Intake & Output: Intake and Output for Last 24 Hours 10/11/24 10/12/24 10/13/24 23:59 23:59 23:59 Intake Total 3330 / 3330 3305.00 / 3305.00 717 / 717 Output Total 740 / 740 50 / 50 Balance 3330 / 3330 2565.00 / 2565.00 667 / 667 Lab / Micro Data 10/13/24 04:33 10/13/24 04:33 Labs: Laboratory Results - last 24 hr 10/13/24 04:33: WBC 3.7 L, RBC 3.17 L, Hgb 8.8 L, Hct 27.0 L, MCV 85.2, MCH 27.8, MCHC 32.6, RDW Std Deviation 46.2 H, RDW Coeff of Emily 14.8 H, Plt Count 264, MPV 9.0, Immature Gran % (Auto) 0.500, Neut % (Auto) 78.8 H, Lymph % (Auto) 10.6 L, [place] % (Auto) 7.1, Eos % (Auto) 2.5, Baso % (Auto) 0.5, Absolute Neuts (auto) 2.9, Absolute Lymphs (auto) 0.39 L, Nucleated RBC % 0, Sodium 135, Potassium 3.8, Chloride 104, Carbon Dioxide 22.2, Anion Gap 9, BUN 12, C reatinine 0.65 L, Estim Creat Clear Calc 143.64, Est GFR (MDRD) Non-Af 107, BUN/Creatinine Ratio 18.8, Glucose 90, Calcium 8.2 Micro: Microbiology 10/11/24 10:20 Urine, Clean Catch Legionella Antigen - Final 10/11/24 10:20 Urine, Clean Catch Streptococcus pneumoniae Antigen (M - Final Radiography Diagnostic Testing: Radiology Impression Biopsy CT 10/12/24 08:00 IMPRESSION: Successful CT-guided percutaneous cholecystostomy with placement of an 8 Frisian all-purpose drainage catheter. The patient tolerated the procedure well. No immediate complication was noted. Reading Location: [place] [address] Physical Exam Const oriented x3 GI soft to palpation GI Narrative: Mild tender in the right upper quadrant near tube insertion, cholecystostomy tube bilious Assessment & Plan Assessment/Plan (1) Acute cholecystitis due to biliary calculus: (2) Anticoagulant long-term use: PLAN: Plan Patient currently getting cholecystostomy tube in radiology. Will plan for an outpatient cholecystectomy. Will plan to send patient home on Augmentin for 5 more days. Okay to DC today per surgery. Will have patient follow-up in 1 week and plan for robotic cholecystectomy tentatively 10/26/2024. Kitty Pruett M.D. Pager: [phone] [facility] [address] [place] [address], [facility], [address] [place] [address] Office: [phone] Charges/Coding Visit Charges Inpatient E&M: 37107 [facility] Hosp L2
--- NOTE | 2024-10-13 08:42 | DCINST_ITS ---
Discharge Instructions Diet Discharge Diet: Light diet - advance as tolerated DC O2, CPAP, BIPAP needs Home O2 Discharge instructions: No Dressing / Incision Discharge Activity: Return to Normal Activity Dressing / Incision Call your doctor if your incision/area has: Continuous Slow Oozing, Sudden Increased Bleeding, Increased Pain/ Swelling and Increased Redness Call your doctor if you observe: Fever of 101 or Higher, Shortness of breath, Dizziness, Fainting spells, Swelling in the ankles, Chest pain and Increased palpitations (irregular heartbeat) Cleanse incision/area with: Keep Dressing Clean & Dry (Tape off with a Ziploc bag if showering to keep dressing dry) Additional Dressing/Incision Instructions:: Keep SUKHDEV log of drainage and bring to appointment. Follow Up Care Please Follow Up With: Kitty Pruett MD Test Results: Test results from this visit will be discussed in further detail at your follow- up appointment, if applicable. Discharge Plan Admission Admit Date/Time: 10/11/24 12:15 Attending Provider: Andrews Watkins Primary Care Provider: Carlitos Brewer Consulting Providers: Kitty Pruett Instructions Patient Instructions: Luis Chopra Drain Tube Dc, Post Op Drain Emptying Milad, ROSSY YEH Procedural Sedation Discharge Orders/Prescriptions Prescriptions: New amoxicillin-pot clavulanate 875-125 mg tablet 1 tab PO Q12H Qty: 10 0RF oxycodone 5 mg capsule 5 mg PO Q6H PRN (Reason: pain) 3 Days Qty: 5 0RF Continued albuterol sulfate [Ventolin HFA] 90 mcg/actuation HFA aerosol inhaler 2 puff INHALATION Q6H PRN (Reason: Asthma) Eligard (3 month) 22.5 mg syringe subcut .q 3 month flecainide 100 mg tablet 100 mg PO BID Qty: 180 3RF metoprolol succinate 100 mg tablet extended release 24 hr 100 mg PO DAILY Qty: 90 3RF rivaroxaban 20 mg tablet 20 mg PO QHS Qty: 90 3RF omeprazole 20 mg tablet,delayed release (DR/EC) 20 mg PO DAILY albuterol sulfate 2.5 MG/3 ML solution for nebulization 1.25 mg INHALATION Q6H PRN PRN (Reason: Asthma) montelukast 10 MG tablet 10 mg PO QHS fluticasone propion-salmeterol [Advair Diskus] 100-50 mcg/dose blister with device 1 inh INHALATION Q12H calcium carbonate [Calcium 600] 600 mg calcium (1,500 mg) tablet 600 mg PO DAILY cholecalciferol (vitamin D3) [Vitamin D3] 50 mcg (2,000 unit) capsule 50 mcg PO DAILY tizanidine 4 mg tablet 4 mg PO TID albuterol sulfate 1.25 mg/3 mL solution for nebulization 1 inhalation 4X/DAY PRN PRN (Reason: shortness of breath or wheezing) Referrals / Follow Up: Carlitos Brewer DO [Primary Care Provider] - Within 1 Week Kitty Pruett MD [Med Staff - Active Staff] - Within 2 Weeks Disposition Disposition (needs filled in before D/C Order can be placed): Home, Self Care
[2024-10-13 08:47] VITALS: BP 122/74; PULSE 66; RESP 18; TEMP 36.6; O2SAT 96
--- NOTE | 2024-10-13 09:01 | CASEMGMT ---
Addendum entered by Soraya Galan 10/13/24 09:03: Pt states that he plans to go to the [facility] to pickup his rxs after leaving the floor. Original Note: Pt has an order for DC placed. RUBA CM to the pt room at this time. Pt states that he still feels safe returning home with his today and denies any additional needs or concerns.
--- NOTE | 2024-10-13 11:35 | PHA.DC.MR.R ---
Pharmacy [place] Med Reconciliation Pharmacy Service has performed discharge medication reconciliation for this patient. Medication education papers prepared, patient discharged when counseling was attempted. The patient's discharge medication list was reviewed for discrepancies and discrepancies were resolved. Medications at Discharge Home Medications albuterol sulfate 90 mcg/actuation aerosol inhaler (Ventolin HFA) 2 puff inhalation Q6H PRN Asthma 09/07/18 albuterol sulfate 2.5 mg/3 mL (0.083 %) solution for nebulization 1.25 mg inhalation Q6H PRN PRN Asthma 06/28/20 montelukast 10 mg tablet 10 mg PO QHS asthma 07/05/20 calcium carbonate (Calcium 600) 600 mg PO DAILY supplement 08/15/23 cholecalciferol (vitamin D3) 50 mcg (2,000 unit) capsule (Vitamin D3) 50 mcg PO DAILY supplement 08/15/23 fluticasone 100 mcg-salmeterol 50 mcg/dose blistr powdr for inhalation (Advair Diskus) 1 inh inhalation Q12H asthma 10/06/23 omeprazole 20 mg tablet,delayed release 20 mg PO DAILY gerd 11/03/23 flecainide 100 mg tablet 100 mg PO BID bp #180 TABLETS 08/03/24 leuprolide (3 month) 22.5 mg (3 month) subcutaneous syringe (Eligard) mg subcut .q 3 month hormone 08/03/24 metoprolol succinate 100 mg tablet,extended release 24 hr 100 mg PO DAILY bp #90 tabs 08/03/24 rivaroxaban 20 mg tablet 20 mg PO QHS BLOOD THINNER #90 tabs 08/03/24 albuterol sulfate 1.25 mg/3 mL solution for nebulization 1 inhalation 4X/DAY PRN PRN shortness of breath or wheezing 10/11/24 tizanidine 4 mg tablet 4 mg PO TID 10/11/24 amoxicillin 875 mg-potassium clavulanate 125 mg tablet 1 tab PO Q12H #10 tabs 10/12/24 oxycodone 5 mg capsule 5 mg PO Q6H PRN pain 3 days #5 caps 10/12/24
--- NOTE | 2024-10-13 15:38 | PCM.DC.SUM ---
Providers Date of Admission: 10/11/24 Primary Care Physician: Dr. 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 Medications at Discharge Home Medications albuterol sulfate 90 mcg/actuation aerosol inhaler (Ventolin HFA) 2 puff inhalation Q6H PRN Asthma 09/07/18 albuterol sulfate 2.5 mg/3 mL (0.083 %) solution for nebulization 1.25 mg inhalation Q6H PRN PRN Asthma 06/28/20 montelukast 10 mg tablet 10 mg PO QHS asthma 07/05/20 calcium carbonate (Calcium 600) 600 mg PO DAILY supplement 08/15/23 cholecalciferol (vitamin D3) 50 mcg (2,000 unit) capsule (Vitamin D3) 50 mcg PO DAILY supplement 08/15/23 fluticasone 100 mcg-salmeterol 50 mcg/dose blistr powdr for inhalation (Advair Diskus) 1 inh inhalation Q12H asthma 10/06/23 omeprazole 20 mg tablet,delayed release 20 mg PO DAILY gerd 11/03/23 flecainide 100 mg tablet 100 mg PO BID bp #180 TABLETS 08/03/24 leuprolide (3 month) 22.5 mg (3 month) subcutaneous syringe (Eligard) mg subcut .q 3 month hormone 08/03/24 metoprolol succinate 100 mg tablet,extended release 24 hr 100 mg PO DAILY bp #90 tabs 08/03/24 rivaroxaban 20 mg tablet 20 mg PO QHS BLOOD THINNER #90 tabs 08/03/24 albuterol sulfate 1.25 mg/3 mL solution for nebulization 1 inhalation 4X/DAY PRN PRN shortness of breath or wheezing 10/11/24 tizanidine 4 mg tablet 4 mg PO TID 10/11/24 amoxicillin 875 mg-potassium clavulanate 125 mg tablet 1 tab PO Q12H #10 tabs 10/12/24 oxycodone 5 mg capsule 5 mg PO Q6H PRN pain 3 days #5 caps 10/12/24 Hospital Course Operations None Procedures - (Cholecystostomy tube) Summary of Care Provided Minutes Spent on Discharge: 32 Hospital Course: Per HPI: ELMIRA PLASENCIA, is a 63 M who presents to the hospital with abdominal pain that was occasionally going up into the right side of his chest, he is also having some left-sided upper back pain that his thinks might be related to new metastatic disease. He has a history of metastatic prostate cancer to his bones and he is very tender on his left upper back so is likely musculoskeletal in origin. In the ER he was found to have a slight leukocytosis to [address] scan of his abdomen pelvis demonstrated acute cholecystitis with pericholecystic fluid and inflammation. General surgery was consulted in the ER and they felt that given the severity of inflammation and the duration of symptoms that he would be better served with a cholecystostomy tube especially since he has also been on Xarelto for A-fib. Hospital Course: 1. Acute cholecystitis?63-year-old male with history of metastatic prostate cancer presents to the hospital with right upper quadrant abdominal pain going into his chest as well as some left upper back pain. Left back pain is due to what appears to be metastatic bone lesions to the ribs on that side however the right upper quadrant is due to cholecystitis. Unfortunately given the severity of his illness and the fact that he is on Xarelto at baseline for paroxysmal A-fib, general surgery did not feel that he was a safe candidate be taken to the OR emergently therefore he was evaluated by radiology and had a cholecystostomy tube placed that drained 160 cc of pus up immediately upon insertion. He was on Zosyn during his hospitalization. He did require a few liters of fluid due to transiently borderline low blood pressures but once he had the cholecystostomy tube in place his blood pressures rebounded nicely. Unfortunate no blood cultures have been drawn in the emergency room and the blood cultures obtained for the sake of being complete were after couple doses of antibiotics so I do anticipate low yield. Also the biliary fluid that was drained during the cholecystostomy procedure is currently being cultured and it shows 3+ gram-positive cocci. He will follow-up with general surgery as an outpatient and they should be able to follow-up the cultures and make any antibiotic adjustments needed. They will likely try to take him back for a cholecystectomy in early October. I discussed with him the plan for discharge today he expressed understanding of the risk and benefits of going home and would like to go home today. 2. Metastatic prostate cancer, essential hypertension, paroxysmal A-fib, GERD, asthma, ascending aortic aneurysm are all chronic medical conditions which complicate his care. His home medications were continued where appropriate. Of note his ascending aortic aneurysm was 4.3 cm and he will need outpatient follow-up for this. Physical Exam Narrative General: Alert, Oriented x3, Cooperative, No apparent distress HEENT: Atraumatic, PERRLA, EOMI, Normocephalic Oral: Moist Mucosa Neck: Supple, No JVD Lungs: Diminished, Normal air movement, No rhonchi, No wheeze, No rales Cardiovascular: Regular rate, Regular Rhythm, Normal S1, Normal S2, No murmurs Abdomen: Soft, nontender, Non-Distended, No Hepato-splenomegaly, cholecystostomy tube in the right upper quadrant Extremities: Trace edema, Capillary Refill Less than 3 Seconds Skin: No rashes, No breakdown Musculoskeletal: No Tenderness to Palpation of Joints or Extremities Neurological: No focal neurological deficits, Motor Exam 5/5 strength throughout, Sensory exam intact to light touch and pain Psych/Mental Status: Normal Affect, Appropriate Weight / BMI Weight Weight: 219 lb 15.988 oz Body Mass Index (BMI) 30.7 ABG / Lab / Microbiology Data 10/13/24 04:33 10/13/24 04:33 Laboratory: Laboratory Results - last 24 hr 10/13/24 04:33: WBC 3.7 L, RBC 3.17 L, Hgb 8.8 L, Hct 27.0 L, MCV 85.2, MCH 27.8, MCHC 32.6, RDW Std Deviation 46.2 H, RDW Coeff of Emily 14.8 H, Plt Count 264, MPV 9.0, Immature Gran % (Auto) 0.500, Neut % (Auto) 78.8 H, Lymph % (Auto) 10.6 L, [place] % (Auto) 7.1, Eos % (Auto) 2.5, Baso % (Auto) 0.5, Absolute Neuts (auto) 2.9, Absolute Lymphs (auto) 0.39 L, Nucleated RBC % 0, Sodium 135, Potassium 3.8, Chloride 104, Carbon Dioxide 22.2, Anion Gap 9, BUN 12, Creatinine 0.65 L, Estim Creat Clear Calc 143.64, Est GFR (MDRD) Non-Af 107, BUN/Creatinine Ratio 18.8, Glucose 90, Calcium 8.2 Microbiology: Microbiology 10/12/24 Unknown Aspirate - Other Gram Stain - Final 10/11/24 10:20 Urine, Clean Catch Legionella Antigen - Final 10/11/24 10:20 Urine, Clean Catch Streptococcus pneumoniae Antigen (M - Final D/C Instructions Discharge Diet: Light diet - advance as tolerated Call your doctor if your incision/area has: Continuous Slow Oozing, Sudden Increased Bleeding, Increased Pain/ Swelling and Increased Redness Call your doctor if you observe: Fever of 101 or Higher, Shortness of breath, Dizziness, Fainting spells, Swelling in the ankles, Chest pain and Increased palpitations (irregular heartbeat) Cleanse incision/area with: Keep Dressing Clean & Dry (Tape off with a Ziploc bag if showering to keep dressing dry) Additional Dressing/Incision Instructions: Keep SUKHDEV log of drainage and bring to appointment. Extra dressing will be sent home with you if the other comes off?okay to come in to get it replaced but bring the dressing with you. DC O2, CPAP, BIPAP Needs Home O2 Discharge instructions: No Please Follow Up With: Kitty Pruett MD When: Call the office for a follow-up appointment mid next week-week of October 18; tentative robotic cholecystectomy date October 26 hold Xarelto x 3 days (last dose 10/22/24) Meaningful Use Info Meaningful Use Meaningful Use Diagnoses (Choose all that apply): None applicable Ischemic Stroke Statin Dosing Therapy Reference: STATIN DOSE THERAPY REFERENCE: * Patients > 75 years receive moderate or high dose statin therapy. * Patients 75 years or YOUNGER should receive HIGH intensity statin dose unless contraindicated. You will be required to document reason for non-treatment if statin daily dose does not meet guidelines. HIGH DOSE STATIN THERAPY DAILY Atorvastatin > than or = to 40 mg Rosuvastatin > than or = to 20 mg Amlodipine + Atorvastatin > than or = to 2.5/40 mg Ezetimibe + Simvastatin 10/80 mg Simvastatin 80mg Discharge Plan Admission Admit Date/Time: 10/11/24 12:15 Attending Provider: Andrews Watkins Primary Care Provider: Carlitos Brewer Consulting Providers: Kitty Pruett Instructions Patient Instructions: Luis Chopra Drain Tube Dc, Post Op Drain Emptying Steps, ROSSY RN Procedural Sedation Discharge Orders/Prescriptions Prescriptions: New amoxicillin-pot clavulanate 875-125 mg tablet 1 tab PO Q12H Qty: 10 0RF oxycodone 5 mg capsule 5 mg PO Q6H PRN (Reason: pain) 3 Days Qty: 5 0RF Continued albuterol sulfate [Ventolin HFA] 90 mcg/actuation HFA aerosol inhaler 2 puff INHALATION Q6H PRN (Reason: Asthma) Eligard (3 month) 22.5 mg syringe subcut .q 3 month flecainide 100 mg tablet 100 mg PO BID Qty: 180 3RF metoprolol succinate 100 mg tablet extended release 24 hr 100 mg PO DAILY Qty: 90 3RF rivaroxaban 20 mg tablet 20 mg PO QHS Qty: 90 3RF omeprazole 20 mg tablet,delayed release (DR/EC) 20 mg PO DAILY albuterol sulfate 2.5 MG/3 ML solution for nebulization 1.25 mg INHALATION Q6H PRN PRN (Reason: Asthma) montelukast 10 MG tablet 10 mg PO QHS fluticasone propion-salmeterol [Advair Diskus] 100-50 mcg/dose blister with device 1 inh INHALATION Q12H calcium carbonate [Calcium 600] 600 mg calcium (1,500 mg) tablet 600 mg PO DAILY cholecalciferol (vitamin D3) [Vitamin D3] 50 mcg (2,000 unit) capsule 50 mcg PO DAILY tizanidine 4 mg tablet 4 mg PO TID albuterol sulfate 1.25 mg/3 mL solution for nebulization 1 inhalation 4X/DAY PRN PRN (Reason: shortness of breath or wheezing) Referrals / Follow Up: Carlitos Brewer DO [Primary Care Provider] - 10/25/24 1:00 pm Kitty Pruett MD [Med Staff - Active Staff] - 10/26/24 8:30 am Disposition Disposition (needs filled in before D/C Order can be placed): Home, Self Care Charges/Coding Visit Charges Inpatient E&M: 97853 Disch Hosp >30min
--- NOTE | 2024-10-15 10:47 | CASEMGMT ---
TC back from pt who states that he is having some sob. Asked pt if he has a pox, pt states he does. He took his pox for a reading of 95%. Asked pt if he has used his nebulizer recently, pt has not. Asked if he could do a breathing treatment. Pt states he is at work. Asked pt if he felt he could finish his shift or if he felt that he needed to be seen by ER. Pt does have his albuterol inhaler with him. He states he will use this. Pt aware that if he continues to be sob, he should go to the ER. Pt verbalized understanding. Pt reports taking his atb as ordered as well as other medications. Pt denies further needs at this time.
== END 2024-10-13 10:50 | disposition home or self-care (01) | DRG 445 ==
LOC: ED 12:22 → MS3 12:23
PROVIDERS: Surgery; Admitting Provider Family Medicine; Emergency Provider Emergency Medicine; Visit Provider Family Medicine
DX: K80.00 Calculus of gallbladder with acute cholecystitis without obstruction (principal); C79.51 Secondary malignant neoplasm of bone; I11.0 Hypertensive heart disease with heart failure; I50.9 Heart failure, unspecified; J45.909 Unspecified asthma, uncomplicated; I71.21 Aneurysm of the ascending aorta, without rupture; I48.0 Paroxysmal atrial fibrillation; C61 Malignant neoplasm of prostate; K21.9 Gastro-esophageal reflux disease without esophagitis; F17.220 Nicotine dependence, chewing tobacco, uncomplicated; M54.9 Dorsalgia, unspecified; G89.3 Neoplasm related pain (acute) (chronic); R03.1 Nonspecific low blood-pressure reading; Z79.51 Long term (current) use of inhaled steroids; Z79.01 Long term (current) use of anticoagulants; Z79.899 Other long term (current) drug therapy; Z86.718 Personal history of other venous thrombosis and embolism
CPT/HCPCS: 36415; 36591; 71275; 74177; 77012; 80048; 80053; 80076; 83690; 83880; 84484; 85025; 85610; 85730; 87040; 87070; 87075; 87077; 87186; 87205; 87449; 93005; 97802; 99285; Q9967; A4216; J0696; J2405

== ENCOUNTER 2024-10-26 11:23 | Day surgery (SDC) | payer BC, SELFPAY ==
--- NOTE | 2024-10-15 15:11 | PAT.ANE_ITS ---
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 When Was Last Pacemaker Check QUESTION #4 FULL TEXT: You/Your Family Experience fever (hyperthermia) with Anesthesia Last Oral Intake Last Oral intake: Last Oral Intake NPO since Meds taken in AM with sips of water? Meds patient instructed to take am of surgery PONV PONV - mirror department supervisor: PONV - mirror department supervisor Female No 10/15/24 09:17 HX of Motion Sickness No 10/15/24 09:17 HX of N/V After Surgery No 10/15/24 09:17 Non-Smoker Yes 10/15/24 09:17 Duration of Surgery greater Yes 10/15/24 09:17 than 60 minutes Number of Risk Factors 2 10/15/24 09:17 PONV Score Moderate Risk 10/15/24 09:17 Height & Weight Height & Weight: Anesthesia: Height & Weight Height 5 ft 11 in 10/11/24 13:52 Respiratory Assessment Respiratory Assessment - mirror department supervisor: Respiratory Tract Infection Hx - mirror department supervisor Hx Respiratory Tract Infection No 10/15/24 09:17 STOP Sleep Apnea STOP Sleep Apnea - mirror department supervisor: STOP Sleep Apnea - mirror department supervisor Hx Hypertension Yes: PER PT, CONTROLLED ON 10/15/24 09:17 MEDS Hx Sleep Apnea No 10/15/24 09:17 CPAP BIPAP Do you snore loudly (louder No 10/15/24 09:17 than talking or can be heard Do you often feel tired/ No 10/15/24 09:17 fatigued/ sleepy during daytime? Has anyone observed you stop No 10/15/24 09:17 breathing during sleep? STOP Results Negative 10/15/24 09:17 QUESTION #5 FULL TEXT : Do you snore loudly (louder than talking or can be heard through closed doors)? 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 Specify any problems Hx of Preganancy in last 3 N/A 10/15/24 09:17 Months Nurse Filling Out Transfusion MGRIMIK 10/15/24 09:17 & Questions: Date: 10/15/24 10/15/24 09:17 Time: 10/15/24 09:17 Patient unable to answer at this time (ie. confused, unrespo /Reproduction History /Reproductive History - mirror department supervisor: /Reproductive Hx- mirror department supervisor Hx Now Gestational Age (in weeks): EDC: Hx Hx Para Hx Section SAB No 08/15/23 14:51 PFSH Medical History (Updated 10/15/24 @ 09:42 by Snow Yao) Cancer Ambulates with cane Former smoker Chronic cough History of Holter monitoring Anxiety Hoarseness of voice Bilateral lower extremity edema Encounter for chemotherapy management History of steroid therapy Arthritis Gastric reflux Patient uses snuff Shortness of breath on exertion History of pain when walking History of edema History of atrial fibrillation Encounter for education Metastasis to bone Regional lymph node metastasis present Rising PSA following treatment for malignant neoplasm of prostate Prostate cancer metastatic to intraabdominal lymph node Edema History of COVID-19 Wears hearing aid Wears contact lenses Alcohol use DVT (deep venous thrombosis) Back pain Injury of head and neck Migraine headache History of echocardiogram History of stress test Cardiology follow-up encounter Hypertension Prostate cancer Acute on chronic diastolic (congestive) heart failure Paroxysmal supraventricular tachycardia Asthma Paroxysmal atrial flutter (08/18/18) Intermittent palpitations Obesity Home Medications ?Medication ?Instructions ?Recorded ?Last Taken ?Type albuterol sulfate 90 mcg/actuation 2 puff inhalation Q 6H PRN Asthma 09/07/18 11/15/20 06:00 History aerosol inhaler (Ventolin HFA) albuterol sulfate 2.5 mg/3 mL 1.25 mg inhalation Q6H P RN PRN 06/28/20 08/25/23 History (0.083 %) solution for nebulization Asthma montelukast 10 mg tablet 10 mg PO QHS asthma 07/05/20 09/09/23 History calcium carbonate (Calcium 600) 600 mg PO DAILY supple ment 08/15/23 09/09/23 History fluticasone 100 mcg-salmeterol 50 1 inh inhalation Q12 H asthma 10/06/23 Unknown History mcg/dose blistr powdr for inhalation (Advair Diskus) omeprazole 20 mg tablet,delayed 20 mg PO QHS gerd 12/19 Unknown History release flecainide 100 mg tablet 100 mg PO BID bp #180 TABLET S 08/03/24 Unknown Rx leuprolide (3 month) 22.5 mg (3 22.5 mg subcut .q 3 mo nth hormone 08/03/24 Unknown History month) subcutaneous syringe (Home-Account) metoprolol succinate 100 mg 100 mg PO DAILY bp #90 tab s 08/03/24 Unknown Rx tablet,extended release 24 hr rivaroxaban 20 mg tablet 20 mg PO QHS BLOOD THINNER # 90 tabs 08/03/24 Unknown Rx albuterol sulfate 1.25 mg/3 mL 1.25 mg inhalation 4X/D AY PRN PRN 10/11/24 Unknown History solution for nebulization shortness of breath or wheez ing tizanidine 4 mg tablet 4 mg PO TID PRN muscle spast icity 10/11/24 Unknown History amoxicillin 875 mg-potassium 1 tab PO Q12H #10 tabs Unknown Rx clavulanate 125 mg tablet oxycodone 5 mg capsule 5 mg PO Q6H PRN pain 3 days #5 caps 10/12/24 Unknown Rx Allergy/AdvReac Type Severity Reaction Status Date / Time ciprofloxacin (From Cipro) Allergy Unknown swelling Verified 10/15/24 09:07 Family History Mother CAD (coronary artery disease) Kidney disease Father Heart disease CHF Lung cancer Uncle Myocardial infarction Paternal from [place] age 38 Surgical History (Updated 10/15/24 @ 09:42 by Snow Yao) History of surgery History of cardiac catheterization Hx of cystoscopy History of prostatectomy (07/05/20) History of amputation of finger of right hand History of left inguinal hernia repair History of bilateral inguinal hernia repair History of arthroscopy of left knee Social History household members: spouse current occupational status: employed Smoking Status: Former smoker Smokeless tobacco user: chewing tobacco and other alcohol intake: current alcohol intake frequency: a few times a week Alcohol type: beer details: 12 pack or more in a week substance use type: does not use caffeine: No Audit: Pertinent Findings Pertinent Findings EKG Perinent findings: October 12, 2024. Sinus bradycardia 56 bpm. Stress test pertinent findings: July 23, 2023. EF 60%. Normal exercise myocardial perfusion stress test at moderate workload. Previous apical infarct cannot be excluded. Echo (EF%) pertinent findings: July 23, 2023. Normal LV function. PASP is 30 mmHg. Mild aortic stenosis. Heart catheterization pertinent findings: January 05, 2024. Normal coronary arteries. Normal LV size and function. EF is 60%. Mild aortic valve stenosis Consult pertinent findings: August 03, 2024. Dr. Diaz. 1. Paroxysmal atrial flutter?[id number] score of 3. Normal echo. No A-fib on Holter monitor. Patient is to continue metoprolol and Xarelto. 2. Dyspnea on exertion?acute-last BNP in August 2023 was 176. He has lost some weight since then and his breathing is much better. Additional pertinent findings: Holter monitor. September 19, 2023. Normal sinus rhythm with rare PVCs and occasional PACs. 1 episode of shortness of breath correlated with normal sinus rhythm. Recommendation Anesthesia Recommendation Anesthesia recommendation: OPTIMIZED for anesthesia
[2024-10-26] VITALS (11 sets, daily range): BP systolic 115–143; BP diastolic 71–83; PULSE 70–83; RESP 16–18; TEMP 36.2–36.5; O2SAT 91–96; BMI 30.1
[2024-10-26] MEDS: Lactated Ringers 1,000 ML 15 ML IV (12:27)
[2024-10-26] MEDS: INDOCYANINE GREEN 3.75 MG in Syringe 1.5 ML 999 MG IV (12:29)
--- NOTE | 2024-10-26 12:33 | PCM.HP.BLA ---
History and Physical Date of Admission: 10/26/24 Date of Service: 10/20/24 MR#: [id number] Acct: [id number] Name: ELMIRA PLASENCIA Rep #: [id number] : 1960 Provider: Dr. Kitty Pruett MD Age/Sex: 63/M Location: [facility] Status: Signed Intake Vital Signs 10/11/2512:52 10/20/2515:25 Height 5 ft 11 in 5 ft 11 in Weight: 224 lb 4 oz BMI 31.2 BP 119/79 Blood Pressure Location Lt brachial Position Sitting Respiration 18 Pulse 69 Pulse Source Monitor Temp 97.3 F L Pulse Oximetry (%) 93 Oxygen Delivery Method room air Intake Visit Reasons: CHECK SUKHDEV DRAIN Chief Complaint: Metastatic prostate cancer Allergies ciprofloxacin (From Cipro) Allergy (Unknown, Verified 10/20/24 13:33) swelling Medications ?Medication ?Instructions ?Recorded ?Confirmed ?Type albuterol sulfate 90 mcg/actuation 2 puff inhalation Q6H PRN Asthma 09/07/18 10/20/24 History aerosol inhaler (Ventolin HFA) albuterol sulfate 2.5 mg/3 mL 1.25 mg inhalation Q6H PRN PRN 06/28/20 10/20/24 History (0.083 %) solution for nebulization Asthma montelukast 10 mg tablet 10 mg PO QHS asthma 07/05/20 10/20/24 History calcium carbonate (Calcium 600) 600 mg PO DAILY supplement 08/15/23 10/20/24 History fluticasone 100 mcg-salmeterol 50 1 inh inhalation Q12H asthma 10/06/23 10/20/24 History mcg/dose blistr powdr for inhalation (Advair Diskus) omeprazole 20 mg tablet,delayed 20 mg PO QHS gerd 11/03/23 10/20/24 History release flecainide 100 mg tablet 100 mg PO BID bp #180 TABLETS 08/03/24 10/20/24 Rx leuprolide (3 month) 22.5 mg (3 22.5 mg subcut .q 3 month hormone 08/03/24 10/20/24 History month) subcutaneous syringe (EliSRCH2d) metoprolol succinate 100 mg 100 mg PO DAILY bp #90 tabs 08/03/24 10/20/24 Rx tablet,extended release 24 hr rivaroxaban 20 mg tablet 20 mg PO QHS BLOOD THINNER #90 tabs 08/03/24 10/20/24 Rx albuterol sulfate 1.25 mg/3 mL 1.25 mg inhalation 4X/DAY PRN PRN 10/11/24 10/20/24 History solution for nebulization shortness of breath or wheezing tizanidine 4 mg tablet 4 mg PO TID PRN muscle spasticity 10/11/24 10/20/24 History oxycodone 5 mg capsule 5 mg PO Q6H PRN pain 3 days #5 caps 10/12/24 10/20/24 Rx doxycycline hyclate 100 mg capsule 100 mg PO BID 10/19/24 10/20/24 History PFSH Medical History Cancer Ambulates with cane Former smoker Chronic cough History of Holter monitoring Anxiety Hoarseness of voice Bilateral lower extremity edema Encounter for chemotherapy management History of steroid therapy Arthritis Gastric reflux Patient uses snuff Shortness of breath on exertion History of pain when walking History of edema History of atrial fibrillation Encounter for education Metastasis to bone Regional lymph node metastasis present Rising PSA following treatment for malignant neoplasm of prostate Prostate cancer metastatic to intraabdominal lymph node Edema History of COVID-19 Wears hearing aid Wears contact lenses Alcohol use DVT (deep venous thrombosis) Back pain Injury of head and neck Migraine headache History of echocardiogram History of stress test Cardiology follow-up encounter Hypertension Prostate cancer Acute on chronic diastolic (congestive) heart failure Paroxysmal supraventricular tachycardia Asthma Paroxysmal atrial flutter (08/18/18) Intermittent palpitations Obesity Surgical History History of surgery History of cardiac catheterization Hx of cystoscopy History of prostatectomy (07/05/20) History of amputation of finger of right hand History of left inguinal hernia repair History of bilateral inguinal hernia repair History of arthroscopy of left knee Family History Mother CAD (coronary artery disease) Kidney diseaseFather Heart disease CHF Lung cancerUncle Myocardial infarction Paternal from [place] age 38 Social History household members: spouse current occupational status: employed Smoking Status: Former smoker Smokeless tobacco user: chewing tobacco and other alcohol intake: current alcohol intake frequency: a few times a week Alcohol type: beer details: 12 pack or more in a week substance use type: does not use caffeine: No HPI HPI HPI: 63-year-old male presents for follow-up status post cholecystostomy tube placement/hospitalization for acute cholecystitis. Patient states close he was putting out about 360 cc/day yellowish in color currently. Patient is tolerating diet and having bowel function. Patient did go to the ER due to Ischium shortness of breath at [facility] had a CTA of the chest which was negative for PE question possible pneumonia was started on antibiotics?doxycycline. ROS Gastro Gastrointestinal: No abdominal pain, No nausea or vomiting, No acid reflux and Yes gallbladder problem Exam Const General: cooperative, healthy appearing, comfortable and no acute distress HENMT Head: normocephalic and atraumatic Neck Neck: supple Resp Effort & Inspection: normal respiratory effort Cardio Rate: regular rate GI Inspection: non-distended Palpation: soft and nontender Other: Cholecystostomy tube in place?bilious drainage Skin General: no rashes or lesions noted Neuro General: CN's II-XI intact bilaterally Extrem General: normal to inspection Psych Mental Status: mental status grossly normal Attitude: cooperative Assessment and Plan Assessment and Plan (1) H/O insertion of cholecystostomy tube: Status: Acute (2) Acute cholecystitis: Status: Acute (3) Acute cholecystitis due to biliary calculus: Status: Acute Plan Will have patient hold his Xarelto for 3 days prior to surgery on 10/26/2024 Reviewed the anatomy with the patient and discussed the procedure: Robotic assisted laparoscopic cholecystectomy with possible cholangiograms, possible open. Review risks including but not limited to bleeding, infection, hernia, bile leak, retained gallstones requiring another procedure ERCP- Endoscopic Retrograde Cholangiopancreatography, injury to another organ (bile ducts, common bile duct, small bowel, etc.) and conversion to an open procedure. All questions were answered. Kitty Pruett M.D. Pager: [phone] [facility] [address] [place], [place] [address], [address] [place] [address] Office: [phone] Coding Level of Care Code Off vis,est,level 3 Diagnoses H/O insertion of cholecystostomy tube Z98.890 Acute cholecystitis K81.0 Acute cholecystitis due to biliary calculus K80.00 10/22/24 0800 <Electronically signed by Kitty Pruett MD> Date Kitty Pruett MD
--- NOTE | 2024-10-26 13:00 | GALL_PTH ---
PATIENT: ELMIRA PLASENCIA LOC: [facility] [place] U#:[id number] AGE/SX: 63/M ROOM: RE10/26/[address]: Dr. Kitty Pruett MD : 1960 BED: DIS: 10/26/2024 SPEC #: [id number] RECD: 10/26/24 18:11 STATUS: ZHENG RECheli #: [id number] DIANA: 10/26/24 13:[address]: Kitty Pruett DEPT: SURGICAL PATHOLOGY RECD BY: José Miguel Mas ENTERED: 10/27/24 10:37 SP TYPE: ROSALIO GALINDO DR: Dr. Carlitos Brewer, DO Tissues: A - Gallbladder, NOS Procedures: Surgery Specimen Level III HEADER OPERATION: Robotic cholecystectomy PRE-OP DIAGNOSIS: History of insertion of cholecystostomy tube, acute cholecystitis, acute cholecystitis due to biliary calculus TISSUE SUBMITTED: Gallbladder MICROSCOPIC DIAGNOSIS A. Gallbladder, cholecystectomy: - Acute on chronic cholecystitis with cholelithiasis. MICROSCOPIC DESCRIPTION Slides are reviewed. GROSS DESCRIPTION A. Received in formalin labeled with the patient's name and date of . Designated as gallbladder is a 6.5 x 2.6 x 2.2 cm pink-purple to meyer, disrupted gallbladder with attached cystic duct (inked black, shaved). A lymph node is not present. Opening reveals a 1.4 cm pigmented cholelith. The mucosa is saez-pink to red, trabeculated and granular with patchy ulceration/necrosis. Sectioning reveals focally fibrotic cut surfaces near the fundus and a maximum wall thickness of 0.7 cm. Cholesterolosis is not present. [employer] sections are submitted in 1 cassette. [place] 10/27/2024 CPT:17236
--- NOTE | 2024-10-26 13:11 | EKG12_ITS ---
Test Reason : PRE OP Blood Pressure : */* mmHG Vent. Rate : 80 BPM Atrial Rate : 80 BPM P-R Int : 172 ms QRS Dur : 112 ms QT Int : 396 ms P-R-T Axes : 16 -37 34 degrees QTcB Int : 456 ms Normal sinus rhythm Left axis deviation Septal infarct , age undetermined Possible Inferior infarct , age undetermined Abnormal ECG When compared with ECG of 12-Oct-2024 04:59, Septal infarct is now Present No significant change was found Confirmed by SAURAV MUNIZ, ASHOK ([id number]), publications editor MYNOR LOVE ([id number]) on 10/27/2024 1:54:12 PM Referred By: Kitty Pruett Confirmed By: ASHOK MG MD
--- NOTE | 2024-10-26 13:14 | PRE.ANES_ITS ---
ASA Classification* ASA Classification ASA Classification: 3 (patient did not take flecanide or metoprolol this morning, we will give his morning dose of flecanide in preop. discussed risk of perioperative arrhythmias ) Assessment & Plan Anesthesia* Anesthesia Assessment Anesthesia Assessment: Discussed sedation and/or anesthesia options, risks, benefits, and alternatives with patient/parents/legal guardian/POA. Questions invited. The patient/parents/legal guardian/POA seems to understand and agrees to proceed with anesthesia plan. Reviewed the physical assessment, medical history, allergy history and patient home medications list prior to surgery/procedure/anesthetic and documented any changes. Performed airway and anesthesia risk assessments. Anesthesia Type Anesthesia Type: General (GA with ETT) History Source History Obtained from:: Patient, Chart and Significant Other Anesthesia Focused Assessment* Temperature: 97.2 F Pulse Rate: 79 Blood Pressure: 117/77 Respiratory Rate: 18 Pulse Ox: 96 Oxygen Delivery Method: Room Air Airway Assessment Mouth opens: 2 cm Mallampati Score: II Teeth Condition: Intact Labs Anesthesia Preop lab: CBC WBC 3.5 K/mm3 (4.4-11.0) L 10/19/24 15:30 10/19/24 RBC 3.51 M/mm3 (4.6-6.2) L 10/19/24 15:30 10/19/24 Hgb 9.7 g/dL (13.0-16.5) L 10/19/24 15:30 10/19/24 Hct 30.1 % (40-54) L 10/19/24 15:30 10/19/24 Plt Count 351 K/mm3 (150-450) 10/19/24 15:30 10/19/24 CHEMISTRY Potassium 4.0 mmol/L (3.3-5.1) 10/19/24 15:30 10/19/24 Sodium 136 mmol/L (133-145) 10/19/24 15:30 10/19/24 BUN 17 mg/dL (4-19) 10/19/24 15:30 10/19/24 Creatinine 0.59 mg/dL (0.70-1.20) L 10/19/24 15:30 Glucose 110 mg/dL (70-99) H 10/19/24 15:30 10/19/24 TSH 0.20 uIU/mL (0.358-3.74) L 11/03/23 08:00 07/12/19 COAG PT 19.0 SECONDS (11.7-14.9) H 10/12/24 04:05 09/26 11/19 Pre-Assessment Diagnosis/Proposed Procedure Planned Operative Procedure(s): Robotic Cholecystectomy w/grams Anesthesia History Anesthesia History - senior security architect: Anesthesia History - senior security architect Hx Hospitalization Yes: 10/20 ACUTE 10/15/24 09:17 CHOLECYSTITS Any Problems With Anesthesia Yes 10/15/24 09:17 Cholinesterase deficiency No 10/15/24 09:17 You/Your Family Experience No 10/15/24 09:17 fever (hyperthermia) with Relationship Recent Exposure to Contagious No 10/26/24 12:03 Disease Does patient have nerve No 10/15/24 09:17 stimulator Patient instructed to have device shut off --Does patient have Pacemaker No 10/26/24 12:03 or ICD? When Was Last Pacemaker Check QUESTION #4 FULL TEXT: You/Your Family Experience fever (hyperthermia) with Anesthesia Last Oral Intake Last Oral intake: Last Oral Intake NPO since 21:00 10/26/24 12:03 Meds taken in AM with sips of Yes 10/26/24 12:03 water? Meds patient instructed to take am of surgery PONV PONV - senior security architect: PONV - senior security architect Female No 10/15/24 09:17 HX of Motion Sickness No 10/15/24 09:17 HX of N/V After Surgery No 10/15/24 09:17 Non-Smoker Yes 10/15/24 09:17 Duration of Surgery greater Yes 10/15/24 09:17 than 60 minutes Number of Risk Factors 2 10/15/24 09:17 PONV Score Moderate Risk 10/15/24 09:17 Height & Weight Height & Weight: Anesthesia: Height & Weight Height 5 ft 11 in 10/26/24 12:03 Weight: 98 kg 10/26/24 12:03 Body Mass Index (BMI) 30.1 10/26/24 12:03 Respiratory Assessment Respiratory Assessment - senior security architect: Respiratory Tract Infection Hx - senior security architect Hx Respiratory Tract Infection No 10/15/24 09:17 STOP Sleep Apnea STOP Sleep Apnea - senior security architect: STOP Sleep Apnea - senior security architect Hx Hypertension Yes: PER PT, CONTROLLED ON 10/15/24 09:17 MEDS Hx Sleep Apnea No 10/15/24 09:17 CPAP BIPAP Do you snore loudly (louder No 10/15/24 09:17 than talking or can be heard Do you often feel tired/ No 10/15/24 09:17 fatigued/ sleepy during daytime? Has anyone observed you stop No 10/15/24 09:17 breathing during sleep? STOP Results Negative 10/15/24 09:17 QUESTION #5 FULL TEXT : Do you snore loudly (louder than talking or can be heard through closed doors)? Tobacco Use History Tobacco Use History - senior security architect: Tobacco Use History - senior security architect Tobacco Use Smoking Status Former smoker 10/15/24 09:17 Hx Tobacco Use Yes: snuff 10/15/24 09:17 Years Smoking Packs Smoked per Day Smoking Cessation Date was Yes - quit smoking within 15 10/15/24 09:17 within the last 15 years years Hx Smoking Cessation Date Hx Smoking Cessation Counseling Hematologic Medial History Hematologic Hx - senior security architect: Hematologic Medical Hx - treasury representative Hx of Blood Transfusion Yes 10/15/24 09:17 Hx of Transfusion in last 3 No 10/15/24 09:17 Months Date of Last Transfusion (if within last 3 months) Ever experience any problems No 10/15/24 09:17 with transfusion(s)? Specify any problems Hx of Preganancy in last 3 N/A 10/15/24 09:17 Months Nurse Filling Out Transfusion MGRIFFITH 10/15/24 09:17 & Questions: Date: 10/15/24 10/15/24 09:17 Time: 10/15/24 09:17 Patient unable to answer at this time (ie. confused, unrespo /Reproduction History /Reproductive History - senior security architect: /Reproductive Hx- senior security architect Hx Now Gestational Age (in weeks): EDC: Hx Hx Para Hx Section SAB No 08/15/23 14:51 Active Medications Active Medications: Current Medications Generic Name Dose Route Start Last Admin Trade Name Freq PRN Reason Stop Dose Admin Cefotetan Disodium 2 gm/ 100 mls @ 200 mls/hr 10/26/24 13:00 Sodium Chloride IV 10/26/24 13:29 INTRAOP ONE Lactated Ringer's 1,000 mls @ 15 mls/hr 10/26/24 11:45 10/26/24 12:27 IV 15 mls/hr .Q48H MILA Administration Sodium Chloride 10 - 40 ml 10/26/24 11:46 0.9% Saline Lock 10 Ml Syringe IV UD PRN Port-a-Cath (VAD)/R Port Flush Sodium Chloride 10 - 40 ml 10/26/24 11:46 0.9 % Nacl (Sterile) Posiflush 10 Ml IV UD PRN Port access or dressing change [facility] Medical History Cancer Ambulates with cane Former smoker Chronic cough History of Holter monitoring Anxiety Hoarseness of voice Bilateral lower extremity edema Encounter for chemotherapy management History of steroid therapy Arthritis Gastric reflux Patient uses snuff Shortness of breath on exertion History of pain when walking History of edema History of atrial fibrillation Encounter for education Metastasis to bone Regional lymph node metastasis present Rising PSA following treatment for malignant neoplasm of prostate Prostate cancer metastatic to intraabdominal lymph node Edema History of COVID-19 Wears hearing aid Wears contact lenses Alcohol use DVT (deep venous thrombosis) Back pain Injury of head and neck Migraine headache History of echocardiogram History of stress test Cardiology follow-up encounter Hypertension Prostate cancer Acute on chronic diastolic (congestive) heart failure Paroxysmal supraventricular tachycardia Asthma Paroxysmal atrial flutter (08/18/18) Intermittent palpitations Obesity Home Medications ?Medication ?Instructions ?Recorded ?Last Taken ?Type albuterol sulfate 90 mcg/actuation 2 puff inhalation Q 6H PRN Asthma 09/07/18 11/15/20 06:00 History aerosol inhaler (Ventolin HFA) albuterol sulfate 2.5 mg/3 mL 1.25 mg inhalation Q6H P RN PRN 06/28/20 08/25/23 History (0.083 %) solution for nebulization Asthma montelukast 10 mg tablet 10 mg PO QHS asthma 07/05/20 10/25/24 History calcium carbonate (Calcium 600) 600 mg PO DAILY supple ment 08/15/23 10/25/24 History fluticasone 100 mcg-salmeterol 50 1 inh inhalation Q12 H asthma 10/06/23 10/26/24 History mcg/dose blistr powdr for inhalation (Advair Diskus) omeprazole 20 mg tablet,delayed 20 mg PO QHS gerd 07/12/1910/25/24 History release flecainide 100 mg tablet 100 mg PO BID bp #180 TABLET S 08/03/24 10/25/24 Rx leuprolide (3 month) 22.5 mg (3 22.5 mg subcut .q 3 mo nth hormone 08/03/24 Unknown History month) subcutaneous syringe (Eligard) metoprolol succinate 100 mg 100 mg PO DAILY bp #90 tab s 08/03/24 10/25/24 Rx tablet,extended release 24 hr rivaroxaban 20 mg tablet 20 mg PO QHS BLOOD THINNER # 90 tabs 08/03/24 10/22/24 Rx albuterol sulfate 1.25 mg/3 mL 1.25 mg inhalation 4X/D AY PRN PRN 10/11/24 Unknown History solution for nebulization shortness of breath or wheez ing tizanidine 4 mg tablet 4 mg PO TID PRN muscle spast icity 10/11/24 10/21/24 History oxycodone 5 mg capsule 5 mg PO Q6H PRN pain 3 days #5 caps 10/12/24 Unknown Rx cefdinir 300 mg capsule 300 mg PO BID 10/26/2410/26 History Allergy/AdvReac Type Severity Reaction Status Date / Time ciprofloxacin (From Cipro) Allergy Unknown swelling Verified 10/26/24 12:00 Family History Mother CAD (coronary artery disease) Kidney disease Father Heart disease CHF Lung cancer Uncle Myocardial infarction Paternal from [place] age 38 Surgical History History of surgery History of cardiac catheterization Hx of cystoscopy History of prostatectomy (07/05/20) History of amputation of finger of right hand History of left inguinal hernia repair History of bilateral inguinal hernia repair History of arthroscopy of left knee Social History household members: spouse current occupational status: employed Smoking Status: Former smoker Smokeless tobacco user: chewing tobacco and other alcohol intake: current alcohol intake frequency: a few times a week Alcohol type: beer details: 12 pack or more in a week substance use type: does not use caffeine: No Review of Systems (Anesthesia) ROS Narrative System reviewed and no additional complaints, except as documented. Physical Exam Const alert and oriented x3 HEENT HEENT Narrative: hoarse voice Chest Chest Narrative: port right chest Resp normal respiratory effort Cardio regular rate
[2024-10-26] MEDS: Cefotetan 2 GM in 0.9% Normal Saline (100mL MB+) 100 ML IV (14:55)
--- NOTE | 2024-10-26 16:49 | PCM.OPRPT ---
Operative Report (Standard) Operative Information Date of Procedure: 10/26/24 Pre-Operative Diagnosis: Acute cholecystitis, cholelithiasis, umbilical hernia Post-Operative Diagnosis: Same Surgery/Procedure Performed: Robotic cholecystectomy with ICG, primary umbilical hernia repair merchandiser seasonal: Yes Nitrocellulose Operator: Lam Olvera Tasks completed by rehabilitation assistant: Opening & closing and Retracting Type of Anesthesia: General/Supplemental RN Documented Start/Stop Times: Operation Date: 10/26/24 13:00 Case Time Into Pre-Op 10/26/24 11:44 Anesthesia Start 10/26/24 14:55 Into Room 10/26/24 14:55 Procedure Start 10/26/24 15:12 Procedure End 10/26/24 16:48 Anesthesia End 10/26/24 16:53 Out of Room 10/26/24 16:53 Procedure Start Time: 15:12 Procedure Stop Time: 16:48 Select all DRAINS/GRAFTS/IMPLANTS that apply: None Special Medications: Cefotetan 2 g IV x 1 Estimated Blood Loss: 20 cc Specimen collected: Yes Description of specimen(s) removed: Gallbladder Description of surgery: Indications: this is a 63 year-old male who developed abdominal pain/nausea/vomiting found to have acute cholecystitis status post cholecystostomy tube placement, with a normal common bile duct. Robotic cholecystectomy was elected. Description procedure: The patient was placed on operating table in supine position. A timeout was completed verifying correct patient, procedure, site, position and special equipment prior to beginning procedure. General Anesthesia was induced. The abdomen was prepped and draped in usual sterile fashion. An curvilinear incision was made in the natural skin line below the umbilicus. Hemostat was used to ground the stalk of the umbilicus. The hernia was carefully from the skin of the umbilicus and reduced back in the abdomen. The fascia was elevated. The peritoneum was elevated and incised. Entry into the peritoneum was confirmed visually and no bowel was noted in the vicinity of the incision. Leblanc trocar was placed. The abdomen was insufflated with carbon dioxide to a pressure of 12-15 mmHg. Patient tolerated insufflation well. The laparoscope was then inserted and abdomen inspected. No injuries from initial trocar placement were noted. Additional trochars were then inserted in the following locations 8 mm trocar left upper quadrant and 2 more 8 mm trochars in right lower quadrant and left lower quadrant. The abdomen was inspected no abnormalities were found. The table is placed in reverse Trendelenburg position with the right side up. Robot was docked. The adhesions between the gallbladder and omentum were taken down carefully with traction. The dome of the gallbladder was grasped with atraumatic grasper passed through the lateral port and retracted over the dome of the liver. Infundibulum was then grasped with atraumatic grasper through the midclavicular port and retracted to the right lower quadrant. This maneuver exposed Calot's triangle. Cholecystostomy tube was removed. The peritoneum overlying the gallbladder infundibulum was then incised and cystic duct and artery identified and circumferentially dissected. ICG was used to visualize the cystic duct. The cystic duct and artery were then doubly clipped and divided close to the gallbladder. The gallbladder then dissected from its peritoneal attachments by electrocautery, and distal aspect was tightly adherent and left in place. Distal posterior gallbladder wall mucosa was cauterized. Hemostasis was checked and the gallbladder was removed using the endoscopic retrieval bag through the umbilical port. The gallbladder is passed off table as specimen. The gallbladder fossa was irrigated with saline and hemostasis obtained. There is no evidence of bleeding from the gallbladder fossa or cystic artery leakage of bile from the cystic duct stump. Secondary trochars removed under direct vision. No bleeding was noted the trocar sites. The laparoscope was withdrawn and umbilical trocar removed. The abdomen was allowed to collapse. The fascia of the 12 mm trocar was closed with a [id number] 0 Nurolon suture. Skin of the umbilicus was tacked back down to the fascia with 3-0 Vicryl interrupted suture. The skin was closed with sutures of 4-0 Monocryl and Steri-Strips. Cotton balls were placed in the umbilicus over the skin and OpSite was placed. The patient was extubated. The patient tolerated procedure well and was taken to the postanesthesia care unit in stable condition. Surgical Findings: See operative report Complications Complications: No
--- NOTE | 2024-10-26 17:00 | EX.PCM.DISCH ---
Discharge Instructions Diet Discharge Diet: Light diet - advance as tolerated Activity May shower in (days): 5 (Keep umbilical dressing clean dry and intact for 5 days. Okay to tape off with a Ziploc bag to shower after 24 hours. Or lower shower and upper sponge bath.) Lifting Restrictions: no lifting >20 lbs x 2 wks, no strenuous exercise for 4 wks Additional Activity Instructions:: - Dressing / Incision Call your doctor if your incision/area has: Continuous Slow Oozing, Sudden Increased Bleeding, Increased Pain/ Swelling, Increased Redness, Foul Smelling Discharge and Swelling at the incision site Call your doctor if you observe: Fever of 101 or Higher Remove Dressing in: 5 days (After 5 days okay to remove surgical dressing. Place cotton ball or rolled up gauze in bellybutton and retape daily for 2 more days.) Cleanse incision/area with: Soap & Water (For left upper quadrant left lower quadrant and right lower quadrant incisions) and Do not get Incision Wet (for 5 days for umbilical incision) Additional Dressing/Incision Instructions:: Steri-Strips will fall off in 7 to 10 days, if they do not fall off okay to remove after 10 days. Follow Up Care Please Follow Up With: Kitty Pruett MD When: Call the office for a follow-up appointment 2 weeks; after 5 PM and on the weekends call [phone] with any concerns. Test Results: Test results from this visit will be discussed in further detail at your follow-up appointment, if applicable. Discharge Plan Admission Attending Provider: Kitty Pruett Primary Care Provider: Carlitos Brewer Instructions Print Language: [place] Discharge Orders/Prescriptions Prescriptions: New oxycodone 5 mg capsule 5 mg PO Q6H PRN (Reason: pain) 3 Days Qty: 10 0RF Continued albuterol sulfate [Ventolin HFA] 90 mcg/actuation HFA aerosol inhaler 2 puff INHALATION Q6H PRN (Reason: Asthma) Eligard (3 month) 22.5 mg syringe 22.5 mg subcut .q 3 month flecainide 100 mg tablet 100 mg PO BID Qty: 180 3RF metoprolol succinate 100 mg tablet extended release 24 hr 100 mg PO DAILY Qty: 90 3RF omeprazole 20 mg tablet,delayed release (DR/EC) 20 mg PO QHS albuterol sulfate 2.5 MG/3 ML solution for nebulization 1.25 mg INHALATION Q6H PRN PRN (Reason: Asthma) montelukast 10 MG tablet 10 mg PO QHS fluticasone propion-salmeterol [Advair Diskus] 100-50 mcg/dose blister with device 1 inh INHALATION Q12H calcium carbonate [Calcium 600] 600 mg calcium (1,500 mg) tablet 600 mg PO DAILY tizanidine 4 mg tablet 4 mg PO TID PRN (Reason: muscle spasticity) albuterol sulfate 1.25 mg/3 mL solution for nebulization 1.25 mg inhalation 4X/DAY PRN PRN (Reason: shortness of breath or wheezing) oxycodone 5 mg capsule 5 mg PO Q6H PRN (Reason: pain) 3 Days Qty: 5 0RF cefdinir 300 mg capsule 300 mg PO BID Held rivaroxaban 20 mg tablet 20 mg PO QHS Qty: 90 3RF Hold Instructions: Resume on 10/28/24. Patient Comments: LAST DOSE TO BE 10/22/24 FOR SURGERY ON 10/26/24 Referrals / Follow Up: Carlitos Brewer DO [Primary Care Provider] - Disposition Disposition (needs filled in before D/C Order can be placed): Home, Self Care
--- NOTE | 2024-10-26 17:02 | PCM.POST.ANE ---
Anesthesia: Postop Eval I Current Vital Signs Temperature: 97.7 F Pulse Rate: 75 Blood Pressure: 141/83 Respiratory Rate: 16 Pulse Ox: 92 Oxygen Delivery Method: Room Air Assessment Airway patent: Yes Spontaneous unlabored respirations: Yes Mental status: Awake nausea: No Vomiting: No Anesthesia Complication: No Fluid Hydration Crystalloid volume administer (ml): 1,000 Total IV fluid infused: 1,000 Progress Note Anesthesia document: Postop Eval 1 completed: Yes
--- NOTE | 2024-10-26 18:19 | POSTOPAN2_ITS ---
Anesthesia Postop Eval I Sum Postop Eval Completion status Anesthesia document: Postop Eval 1 completed: Yes Anesthesia Postop Eval I Summary Anesthesia Postop Eval I Summary: Anesthesia Postop Eval I: Assessment Summary Airway patent Yes 10/26/24 17:04 [email or web address] Spontaneous unlabored Yes 10/26/24 17:04 [email or web address] respirations Mental status Awake 10/26/24 17:04 [email or web address] nausea No 10/26/24 17:04 [email or web address].ACAR Vomiting No 10/26/24 17:04 [email or web address].ACAR Anesthesia Postop Eval I: Fluid Summary Crystalloid volume administer 1,000 10/26/24 17:04 [email or web address].ACAR (ml) Colloids volume administered ( ml) Blood Product volume administered (ml) Total IV fluid infused 1,000 10/26/24 17:04 [email or web address].ACAR Anesthesia Postop Eval I: Summary Notes Anesthesia Complication No 10/26/24 17:04 [email or web address].[email or web address] Anesthesia Complication Comment: Post-operative progress note Anesthesia: Postop Eval II Evaluation Mental status: Awake and Calm Pain Level: 2 nausea: No Vomiting: No Complications Anesthesia Complication: No
--- NOTE | 2024-10-26 18:19 | PCM.POSTANE2 ---
Anesthesia Postop Eval I Sum Postop Eval Completion status Anesthesia document: Postop Eval 1 completed: Yes Anesthesia Postop Eval I Summary Anesthesia Postop Eval I Summary: Anesthesia Postop Eval I: Assessment Summary Airway patent Yes 10/26/24 17:04 BOAT [email or web address] Spontaneous unlabored Yes 10/26/24 17:04 BOAT [email or web address].ACAR respirations Mental status Awake 10/26/24 17:04 BOAT [email or web address] nausea No 10/26/24 17:04 BOAT [email or web address].ACAR Vomiting No 10/26/24 17:04 BOAT [email or web address].ACAR Anesthesia Postop Eval I: Fluid Summary Crystalloid volume administer 1,000 10/26/24 17:04 BOAT [email or web address].ACAR (ml) Colloids volume administered ( ml) Blood Product volume administered (ml) Total IV fluid infused 1,000 10/26/24 17:04 BOAT [email or web address].ACAR Anesthesia Postop Eval I: Summary Notes Anesthesia Complication No 10/26/24 17:04 BOAT [email or web address].ACAR Anesthesia Complication Comment: Post-operative progress note Anesthesia: Postop Eval II Evaluation Mental status: Awake and Calm Pain Level: 2 nausea: No Vomiting: No Complications Anesthesia Complication: No
[2024-10-26] MEDS: 0.9% Saline Lock 10 ML Syringe IV (18:48)
== END 2024-10-26 19:02 | disposition home or self-care (01) ==
LOC: SDC 11:31 → AC 11:32
PROVIDERS: Referring Provider Surgery; Visit Provider Surgery
PROC: 0FT44ZZ Resection of Gallbladder, Percutaneous Endoscopic Approach (ICD-10-PCS; CPT 47562; principal; 2024-10-26 12:40)
DX: K80.12 Calculus of gallbladder with acute and chronic cholecystitis without obstruction (principal); I11.0 Hypertensive heart disease with heart failure; I50.32 Chronic diastolic (congestive) heart failure; C61 Malignant neoplasm of prostate; K42.9 Umbilical hernia without obstruction or gangrene; F17.220 Nicotine dependence, chewing tobacco, uncomplicated; Z79.899 Other long term (current) drug therapy; Z86.718 Personal history of other venous thrombosis and embolism
CPT/HCPCS: 47563; S2900; 00790; 88304; 93005; 94640; A4216; J2405

== ENCOUNTER 2025-03-03 20:34 | Emergency (ER) | payer BC, SELFPAY ==
[2025-03-03 20:36] VITALS: BP 113/81; PULSE 96; RESP 20; TEMP 36.7; O2SAT 99; BMI 31.0
--- OUTSIDE RECORDS SUMMARY | 2025-03-03 21:06 | XMS RPT_ITS | CCD ---
Author Organization [facility] Care Team Providers Care Economics Professor Name Role Phone ROSA ELENA MUNIZ, MANGO Stallworth Primary Care Physician [phone] Dr. Mango Cuba Primary Care Provider Dr. Mango Cuba Referring Provider [phone] Teri HEATING AND BLENDING SUPERVISOR, GERARDO-Priscilla Jeffery Attending Provider Tristan Borrero DO Unavailable Nahid MUNIZ, PhD, [facility] Unavailable [phone] Mango Cuba MD Primary Care Provider [phone] Porter YEH, Sanna Unavailable Unavailable Dr. Mango Cuba Primary Care Provider Dr. Tristan Borrero Attending Provider [phone] Seth Santamaria Referring Provider Dr. Tristan Borrero Referring Provider Dr. Dong Cheung Attending Provider Dr. Dogn Cheung Referring Provider Dr. Mango Cuba Primary Care Provider Dr. Tristan Borrero Attending Provider Dr. Tristan Borrero Referring Provider Care Physician, No Primary Primary Care Provider Unavailable Care Physician, No Primary Primary Care Provider Unavailable Care Physician, No Primary Referring Provider Un available Dr. Tristan Borrero Attending Provider [phone] Dr. Juan M Diaz Attending Provider Roof HEATING AND BLENDING SUPERVISOR, HEATING AND BLENDING SUPERVISOR-C Catalino Jeffery Attending Provider Care Physician, No Primary Primary Care Provider Unavailable Dr. Tristan Borrero Attending Provider Care Physician, No Primary Referring Provider Un available Dr. Juan M Diaz Attending Provider Roof HEATING AND BLENDING SUPERVISOR, HEATING AND BLENDING SUPERVISOR-C Catalino Jeffery Attending Provider CARLITOS BREWER DO Primary Care Physician Care Physician, No Primary Primary Care Provider Unavailable Irma Jansen Attending Provider Unavailable Dr. Jignesh Purcell Attending Provider Dr. Seth Santamaria Referring Provider Dr. Carlitos Brewer Primary Care Provider [phone] Dr. Carlitos Brewer Referring Provider [phone] Care Physician, No Primary Referring Provider Un available Roof HEATING AND BLENDING SUPERVISOR, HEATING AND BLENDING SUPERVISOR-C Catalino Jeffery Attending Provider Care Physician, No Primary Primary Care Provider Unavailable Irma Jansen Attending Provider Unavailable Dr. Jignesh Purcell Attending Provider Dr. Seth Santamaria Referring Provider Dr. Carlitos Brewer Primary Care Provider [phone] Dr. Carlitos Brewer Referring Provider [phone] Care Physician, No Primary Referring Provider Un available Roof HEATING AND BLENDING SUPERVISOR, HEATING AND BLENDING SUPERVISOR-C Catalino Jeffery Attending Provider Adrián HEATING AND BLENDING SUPERVISOR, HEATING AND BLENDING SUPERVISOR-C Florencia Attending Provider Dr. Matthew Medellin Attending Provider Dr. Jignesh Purcell Attending Provider Dr. Carlitos Brewer Primary Care Provider Dr. Carlitos Brewer Referring Provider [phone] Dr. Jignesh Purcell Attending Provider Dr. Tristan Borrero Attending Provider Dr. Tristan Borrero Referring Provider Roof HEATING AND BLENDING SUPERVISOR, HEATING AND BLENDING SUPERVISOR-C Catalino Jeffery Referring Provider Roof HEATING AND BLENDING SUPERVISOR, HEATING AND BLENDING SUPERVISOR-C Catalino Jeffery Other Provider Dr. Juan M Diaz Attending Provider Dr. Matthew Medellin Other Provider CARLITOS BREWER DO Attending Unavailable CARLITOS BREWER DO Primary Care Unavailable INOCENCIO FORBES-AZAM Wells Attending Unavailab le KEIRA ZAVALETA, CARLITOS Briceño Primary Care Unavailable CARLITOS BREWER DO Attending Unavailable CARLITOS BREWER DO Primary Care Unavailable Dr. Carlitos Brewer DO Primary Care Provider Dr. Carlitos Brewer DO Referring Provider Adrián HEATING AND BLENDING SUPERVISOR-C, Florencia Attending Provider Adrián HEATING AND BLENDING SUPERVISOR-C, Florencia Referring Provider Irma Jansen Attending Provider Unavailable Dr. Tristan Borrero DO Attending Provider Dr. Jignesh Purcell MD Attending Provider Dr. Juan M Diaz MD Attending Provider Dr. Jignesh Purcell MD Referring Provider Dr. Tristan Borrero DO Referring Provider Dr. Carlitos Brewer DO Primary Care Provider [phone] Dr. Carlitos Brewer DO Referring Provider Dr. Jignesh Purcell MD Attending Provider Dr. Tristan Borrero DO Attending Provider Dr. Tristan Borrero DO Referring Provider Adrián HEATING AND BLENDING SUPERVISOR-C, Florencia Attending Provider Dr. Darron Washington DO Emergency Provider Salina MUNIZ, Dr. Andrews Goetz Admit Provider Salina MUNIZ, Dr. Andrews Goetz Attending Provider Seble MUNIZ, Dr. Tang Other Provider Dr. Andrews Watkins MD Other Provider Seble MUNIZ, Dr. Tang Attending Provider BREWER DO, CARLITOS Briceño Primary Care Unavailable ANKUSH MUNIZ, ANGIE Khan Attending Unavailable BREWER DO, CARLITOS E Primary Care Unavailable CONNIE QUINN Attending Unavailab le BREWER DO, CARLITOS E Primary Care Unavailable BREWER DO, CARLITOS E Attending Unavailable BREWER DO, CARLITOS E Primary Care Unavailable BREWER DO, CARLITOS E Attending Unavailable BREWER DO, CARLITOS E Primary Care Unavailable BREWER DO, CARLITOS E Attending Unavailable Seble MUNIZ, Dr. Tang Referring Provider [phone] Gissell ZAVALETA Tristan A Unavailable Nahid MUNIZ, Sukumar Unavailable Rosa Elena MUNIZ, Mango Primary Care Provider Jazzy STRINGER [facility], Jignesh S Unavailable Sanna Buenrostro RN Unavailable Unavailable Dr. Carlitos Brewer DO Primary Care Provider [phone] Dr. Carlitos Brewer DO Referring Provider Dr. Jignesh Purcell MD Attending Provider [phone] Alejandra Yao PA-C Attending Provider BICER, FUAT Referring Unavailable BICSVITLANA FUAT Attending Unavailable MANGO CUBA Primary Care Unavailable JIGNESH PURCELL S Referring Unavailable BICYAN SHANE Attending Unavailable MANGO CUBA Primary Care Unavailable MANGO CUBA Primary Care Unavailable KELLY PIMENTEL Referring UnavailKELLY Koenig Attending Unavailabl e Carlitos Brewer Primary Care Unavailable IsckarusJignesh Referring Unavailable IscJignesh murillo Attending Unavailable Carlitos Brewer Primary Care Unavailable Adrián HEATING AND BLENDING SUPERVISOR, Florencia Attending Unavailable Adrián HEATING AND BLENDING SUPERVISOR, Florencia Referring Unavailable Carlitos Brewer Primary Care Unavailable Adrián HEATING AND BLENDING SUPERVISOR, Florencia Referring Unavailable Adrián HEATING AND BLENDING SUPERVISOR, Florencia Attending Unavailable Carlitos Brewer Primary Care Unavailable Adrián HEATING AND BLENDING SUPERVISOR, Florencia Attending Unavailable Adrián HEATING AND BLENDING SUPERVISOR, Florencia Referring Unavailable Andrews Watkins Admitting Unavailable Andrews Watkins Referring Unavailable Brewer, Carlitos Primary Care Unavailable Robotham, Kitty Attending Unavailable Robotham, Kitty Consulting Unavailable Andrews Watkins Consulting Unavailable Gissell, Tristan Referring Unavailable Brewer, Carlitos Primary Care Unavailable Tristan Borrero Attending Unavailable Andrews Watkins Admitting Unavailable Andrews Watkins Attending Unavailable Brewer, Carlitos Primary Care Unavailable Robotham, Kitty Consulting Unavailable Brewer, Carlitos Primary Care Unavailable GissellTristan hager Attending Unavailable Brewer, Carlitos Primary Care Unavailable Irma Jansen Attending Unavailable Brewer, Carlitos Primary Care Unavailable Gissell, Tristan Referring Unavailable Gissell, Tristan Attending Unavailable Brewer, Carlitos Primary Care Unavailable Gissell, Tristan Referring Unavailable Gissell, Tristan Attending Unavailable Brewer, Carlitos Primary Care Unavailable Gissell, Tristan Referring Unavailable Gissell, Tristan Attending Unavailable Brewer, Carlitos Referring Unavailable Brewer, Carlitos Primary Care Unavailable IscJignesh murillo Attending Unavailable Brewer, Carlitos Primary Care Unavailable Brewer, Carlitos Referring Unavailable Adrián HEATING AND BLENDING SUPERVISOR, Florencia Attending Unavailable Tristan Borrero Attending Unavailable Brewer, Carlitos Primary Care Unavailable Brewer, Carlitos Referring Unavailable IsckarJignesh avina Attending Unavailable Brewer, Carlitos Primary Care Unavailable Brewer, Carlitos Referring Unavailable Brewer, Carlitos Primary Care Unavailable Gissell, Tristan Referring Unavailable Gissell, Tristan Attending Unavailable Brewer, Carlitos Primary Care Unavailable Robotham, Kitty Consulting Unavailable Robotham, Kitty Referring Unavailable Robotham, Kitty Attending Unavailable Brewer, Carlitos Referring Unavailable Brewer, Carlitos Primary Care Unavailable Alejandra Yao Attending Unavailable Brewer, Carlitos Primary Care Unavailable Jignesh Purcell Attending Unavailable Brewer, Carlitos Referring Unavailable Brewer, Carlitos Primary Care Unavailable Catalino Williamson NP Attending Unavailable Brewer, Carlitos Referring Unavailable Brewer, Carlitos Referring Unavailable GissellTristan Attending Unavailable Brewer, Carlitos Primary Care Unavailable Brewer, Carlitos Primary Care Unavailable Robotham, Kitty Referring Unavailable Robotham, Kitty Attending Unavailable Andrews Watkins Attending Unavailable Brewer, Carlitos Primary Care Unavailable Adrián HEATING AND BLENDING SUPERVISOR, Florencia Attending Unavailable Adrián HEATING AND BLENDING SUPERVISOR, Florencia Referring Unavailable Brewer, Carlitos Primary Care Unavailable Juan M Diaz Attending Unavailable Robotham, Kitty Referring Unavailable Brewer, Carlitos Primary Care Unavailable Juan M Diaz Attending Unavailable Isckarus, Mansour Referring Unavailable Isckarus, Jignesh Attending Unavailable Brewer, Carlitos Primary Care Unavailable Brewer, Carlitos Referring Unavailable Juan M Diaz Attending Unavailable Brewer, Carlitos Primary Care Unavailable Brewer, Carlitos Referring Unavailable Isckarus, Mansour Attending Unavailable Brewer, Carlitos Referring Unavailable Brewer, Carlitos Primary Care Unavailable Brewer, Carlitos Primary Care Unavailable Adrián HEATING AND BLENDING SUPERVISOR, Florencia Attending Unavailable Brewer, Carlitos Referring Unavailable Brewer, Carlitos Primary Care Unavailable Isckarus, Mansour Attending Unavailable Brewer, Carlitos Referring Unavailable Brewer, Carlitos Primary Care Unavailable Adrián HEATING AND BLENDING SUPERVISOR, Florencia Attending Unavailable Brewer, Carlitos Referring Unavailable Brewer, Carlitos Referring Unavailable Brewer, Carlitos Primary Care Unavailable Kitty Pruett Attending Unavailable Brewer, Carlitos Referring Unavailable Brewer, Carlitos Primary Care Unavailable Isckarus, Mansour Attending Unavailable Brewer, Carlitos Referring Unavailable Brewer, Carlitos Primary Care Unavailable Isckarus, Mansour Attending Unavailable Brewer, Carlitos Primary Care Unavailable Isckarus, Mansour Referring Unavailable Iscchidi, Mansour Attending Unavailable Dr. Carlitos Brewer DO Primary Care Physician Dr. Kitty Pruett MD Attending Physician Dr. Juan M Diaz MD Attending Physician Dr. Kitty Pruett MD Nurse Practitioner Dr. Carlitos Brewer DO Referring Provider Dr. Jignesh Purcell MD Attending Physician Dr. Tristan Borrero DO Attending Physician Dr. Tristan Borrero DO Referring Provider Alejandra Yao PA-C Attending Physician Catalino Witt Attending Physician Allergies Allergy Classification Reported Allergen(s) Allergy Type Date of Onset Reaction(s) Facility (20 sources) Ciprofloxacin; Translations: [ciprofloxacin] Drug Allergy 2 couldn't walk, hurt feet., swelling U [facility] (1 source) Ciprofloxacin Drug Allergy 5 [facility] Repository Medications Current Medications Medication Drug Class(es) Dates Sig (Normalized) Sig (Original) acetaminophen 325 mg / caffeine 65 mg oral tablet (7 sources) Central Nervous System Stimulant, Methylxanthine Start: 12-26-2021 take 1 tablet by mouth every six hours Excedrin Mild Headache 325 mg-65 mg oral tablet Dose = 2 tab(s), Oral, q6h, 0 Refill(s) Start Date: 12/26/21 Status: Ordered Repeat number: 1 albuterol 0.417 mg/ml inhalation solution (20 sources) beta2-Adrenergic Agonist Start: 10-11-2024 take 1.25 mg by inhalation four times daily as needed for wheezing Albuterol Sulfate 1.25 mg/3 mL solution for nebulization Active 1.25 mg INHALATION 4 TIMES DAILY NEEDED as needed for shortness of breath or wheezing October 11, 2024 12:00am Complies with drug therapy Start: 10-11-2024 Albuterol Sulf ate 1.25 mg/3 mL solution for nebulization Active 1 INHALATION 4 TIMES DAILY NEEDED as needed for shortness of breath or wheezing October 11, 2024 12:00am Start: 06-28-2020 take 1.25 mg by inha lation every six hours as needed Albuterol Sulfate 2.5 MG/3 ML solution for nebulization Active 1.25 mg INHALATION EVERY 6 HOURS NEEDED as needed for Asthma June 28, 2020 1:00am Complies with drug therapy Start: 06-28-2020 take 2.5 mg by inhal ation every six hours as needed Albuterol Sulfate 2.5 MG/3 ML solution for nebulization Active 2.5 mg INHALATION EVERY 6 HOURS NEEDED as needed for Asthma June 28, 2020 1:00am Start: 09-07-2018 Albuterol Sulf ate (Ventolin Hfa) 90 mcg/actuation HFA aerosol inhaler Active 2 NMA INHALATION EVERY 6 HOURS as needed for Asthma September 07, 2018 12:00am Complies with drug therapy ALBUTEROL IN Inh ore as needed. Active ALBUTEROL IN Inh roe as needed. 0 Active albuterol MDI (90 mcg/inh) CFC free inhalation aerosol (8 sources) Start: 11-12-2018 take 2 puff(s) by inhalation four times daily as needed for wheezing albuterol MDI (90 mcg/inh) CFC free inhalation aerosol 2 puff(s), Inhalation, QID, PRN for wheezing, 0 Refill(s) Start Date: 11/12/18 Status: Ordered Repeat number: 1 Start: 11-12-2018 take 2 puff(s) by in halation four times daily as needed for wheezing albuterol MDI (90 mcg/inh) CFC free inhalation aerosol 2 puff(s), Inhalation, QID, PRN for wheezing, 0 Refill(s) Start Date: 11/12/18 Status: Ordered Albuterol Sulfate (Ventolin Hfa) 90 mcg/actuation HFA aerosol inhaler (20 sources) Start: 09-07-2018 take 1 puff(s) by inhalation every six hours Albuterol Sulfate (Ventolin Hfa) 90 mcg/actuation HFA aerosol inhaler Active 2 PUFF INHALATION EVERY 6 HOURS September 07, 2018 8:26pm Start: 09-07-2018 Albuterol Sulf ate (Ventolin Hfa) 90 mcg/actuation HFA aerosol inhaler Active 2 NMA INHALATION EVERY 6 HOURS as needed for Asthma September 07, 2018 12:00am Start: 09-07-2018 take 1 puff(s) by in halation every six hours Albuterol Sulfate (Ventolin Hfa) 90 mcg/actuation HFA aerosol inhaler Active 2 PUFF INHALATION EVERY 6 HOURS September 06, 2018 11:00pm Start: 09-07-2018 take 1 puff(s) by in halation every six hours Albuterol Sulfate (Ventolin Hfa) 90 mcg/actuation HFA aerosol inhaler Active 2 PUFF INHALATION EVERY 6 HOURS September 07, 2018 12:00am calcium carbonate 1500 mg oral tablet (11 sources) Start: 08-15-2023 take 1 tablet by mouth once daily Calcium Carbonate (Calcium 600) 600 mg calcium (1,500 mg) tablet Active 600 mg PO DAILY August 15, 2023 12:00am supplement Complies with drug therapy cholecalciferol 0.05 mg oral capsule (4 sources) Vitamin D Start: 08-15-2023 take 1 capsule by mouth once daily Cholecalciferol (Vitamin D3) (Vitamin D3) 50 mcg (2,000 unit) capsule Active 50 ug PO DAILY August 15, 2023 12:00am fluticasone propionate 0.05 mg/actuat metered dose nasal spray (1 source) Corticosteroid Start: 02-23-2024 End: 11-27-2024 take 100 ug nasal route once daily fluticasone 50 mcg/inh NASAL spray 100 mcg Dose = 2 spray(s), Nostril, each, qDay, shake well before using, # 16 gram(s), 0 Refill(s), Pharmacy: [facility]/pharmacy #[id number], Bilateral serous otitis media, 178.4, cm, 02/23/24 15:38:00 EDT, Height, kg, 02/23/24 15:38:00 EDT, Dosing Weight Start Date: 02/23/24 Stop Date: 03/24/24 Status: Ordered Fluticasone Propion-Salmeterol (20 sources) Corticosteroid, beta2-Adrenergic Agonist Start: 10-06-2023 Fluticasone Propion-Salmeterol (Advair Diskus) 100-50 mcg/dose blister with device Active 1 NMA INHALATION Q12H October 06, 2023 1:33pm asthma Complies with drug therapy Start: 10-06-2023 Fluticasone Pr opion-Salmeterol (Advair Diskus) 100-50 mcg/dose blister with device Active 1 NMA INHALATION Q12H October 06, 2023 1:33pm asthma Start: 10-06-2023 Fluticasone Pr opion-Salmeterol (Advair Diskus) 100-50 mcg/dose blister with device Active 1 NMA INHALATION Q12H October 06, 2023 1:33pm Start: 10-06-2023 Fluticasone Pr opion-Salmeterol (Advair Diskus) 100-50 mcg/dose blister with device Active 1 NMA INHALATION DAILY October 06, 2023 1:33pm Start: 08-11-2023 End: 10-06-2023 Fluticasone Propion-Salmeter ol (Advair Diskus) 100-50 mcg/dose blister with device Discontinued 1 NMA INHALATION TWICE A DAY August 11, 2023 9:05am October 06, 2023 1:40pm asthma Start: 08-11-2023 End: 10-06-2023 Fluticasone Propion-Salmeter ol (Advair Diskus) 100-50 mcg/dose blister with device Discontinued 1 NMA INHALATION TWICE A DAY August 11, 2023 9:05am October 06, 2023 1:40pm Start: 08-11-2023 Fluticasone Pr opion-Salmeterol (Advair Diskus) 100-50 mcg/dose blister with device Active 1 INH INHALATION TWICE A DAY August 11, 2023 9:05am Start: 08-29-2021 Advair Diskus 100-50 MCG/ACT Aerosol Powder, breath activated inhaler 08/29/2021 Active Start: 11-08-2020 Fluticasone Pr opion-Salmeterol (Advair Diskus) 100-50 mcg/dose Blister With Device Active 1 INH INHALATION DAILY November 08, 2020 11:12am Start: 11-08-2020 End: 08-11-2023 Fluticasone Propion-Salmeter ol (Advair Diskus) 100-50 mcg/dose Blister With Device Discontinued 1 NMA INHALATION DAILY November 08, 2020 12:00am August 11, 2023 9:07am asthma Start: 11-08-2020 End: 08-11-2023 Fluticasone Propion-Salmeter ol (Advair Diskus) 100-50 mcg/dose Blister With Device Discontinued 1 NMA INHALATION DAILY November 08, 2020 12:00am August 11, 2023 9:07am Start: 11-08-2020 End: 08-11-2023 Fluticasone Propion-Salmeter ol (Advair Diskus) 100-50 mcg/dose Blister With Device Discontinued 1 INH INHALATION DAILY November 08, 2020 12:00am August 11, 2023 9:07am Start: 11-08-2020 Fluticasone Pr opion-Salmeterol (Advair Diskus) 100-50 mcg/dose Blister With Device Active 1 INH INHALATION DAILY November 07, 2020 11:00pm Start: 11-08-2020 Fluticasone Pr opion-Salmeterol (Advair Diskus) 100-50 mcg/dose Blister With Device Active 1 INH INHALATION DAILY November 08, 2020 12:00am Start: 11-12-2018 take 1 dose by inhal ation once daily Advair Diskus 100 mcg-50 mcg inhalation powder Dose = 1 puff(s), Inhalation, qDay, 0 Refill(s) Start Date: 11/12/18 Status: Ordered Repeat number: 1 Start: 11-12-2018 take 1 dose by inhal ation once daily Advair Diskus 100 mcg-50 mcg inhalation powder Dose = 1 puff(s), Inhalation, qDay, 0 Refill(s) Start Date: 11/12/18 Status: Ordered Start: 09-07-2018 End: 09-09-2018 Fluticasone Propion-Salmeter ol (Advair Diskus) 250-50 mcg/dose blister with device Discontinued 1 INH INHALATION TWICE A DAY September 07, 2018 8:26pm September 09, 2018 11:38am Start: 09-07-2018 End: 09-09-2018 Fluticasone Propion-Salmeter ol (Advair Diskus) 250-50 mcg/dose blister with device Discontinued 1 NMA INHALATION TWICE A DAY September 07, 2018 12:00am September 09, 2018 11:38am Start: 09-07-2018 End: 09-09-2018 Fluticasone Propion-Salmeter ol (Advair Diskus) 250-50 mcg/dose blister with device Discontinued 1 INH INHALATION TWICE A DAY September 06, 2018 11:00pm September 09, 2018 10:38am Start: 09-07-2018 End: 09-09-2018 Fluticasone Propion-Salmeter ol (Advair Diskus) 250-50 mcg/dose blister with device Discontinued 1 INH INHALATION TWICE A DAY September 07, 2018 12:00am September 09, 2018 11:38am 12 hr guaiFENesin 600 mg extended release oral tablet (1 source) Start: 02-23-2024 End: 03-04-2024 guaiFENesin 600 mg oral tablet, extended release Dose : 600 mg = 1 tab(s), Oral, q12h, X 10 day(s), # 20 tab(s), 0 Refill(s), 03/04/24 4:33:00 PM EST, Pharmacy: [facility]/pharmacy #[id number], Viral URI, 178.4, cm, 02/23/24 15:38:00 EDT, Height, kg, 02/23/24 15:38:00 EDT, Dosing Weight Start Date: 02/23/24 Stop Date: 03/04/24 Status: Ordered ibuprofen 200 mg oral tablet (20 sources) Nonsteroidal Anti-inflammatory Drug Start: 12-26-2021 ibuprofen 200 mg oral tablet Dose : 400 mg = 2 tab(s), Oral, q6hr, PRN pain or fever, 0 Refill(s) Start Date: 12/26/21 Status: Ordered Start: 06-28-2020 End: 03-17-2023 Ibuprofen 200 MG capsule Dis continued 200 mg PO NEEDED as needed for Pain 1-10 Or Fever June 28, 2020 1:00am March 17, 2023 3:34pm montelukast 10 mg oral tablet (20 sources) Leukotriene Receptor Antagonist Start: 11-12-2018 take 1 tablet by mouth at bedtime Montelukast 10 MG tablet Active 10 mg PO AT BEDTIME July 05, 2020 1:00am asthma Complies with drug therapy omeprazole 20 mg oral tablet (15 sources) Proton Pump Inhibitor Start: 02-23-2024 take 1 dose by mouth once daily omeprazole Dose : 20 mg =, Oral, qDay, 0 Refill(s) Start Date: 02/23/24 Status: Ordered Repeat number: 1 Start: 11-03-2023 take 1 tablet by rick th at bedtime Omeprazole 20 mg tablet,delayed release (DR/EC) Active 20 mg PO AT BEDTIME November 03, 2023 12:00am gerd Complies with drug therapy oxyCODONE hydrochloride 10 mg oral tablet (20 sources) Opioid Agonist Start: 2024 End: 02-03-2025 take 1 tablet by mouth every four hours as needed Oxycodone 10 mg tablet Active 10 mg PO Q4H as needed 0 February 03, 2025 2:32pm alternating with 20mg Complies with drug therapy Start: 10-12-2024 End: 11-10-2024 take 1 capsule by mouth every six hours as needed for pain Oxycodone 5 mg capsule Discontinued 5 mg PO EVERY 6 HOURS as needed for pain 10 3 0 October 26, 2024 November 10, 2024 9:39am Postoperative pain Other acute postprocedural pain Start: 07-21-2023 End: 10-11-2024 take 1 tablet by mouth every eight hours as needed for pain Oxycodone 10 mg tablet Discontinued 10 mg PO Q8H as needed for pain 0 July 21, 2023 12:00am October 11, 2024 12:51pm Pegfilgrastim-jmdb (FULPHILA SC) (2 sources) Pegfilgrastim-jm db (FULPHILA SC) Inject under the skin. Active polyethylene glycol 3350 18693 mg powder for oral solution (12 sources) Osmotic Laxative Start: 2024 Polyethylene Glycol 3350 (Miralax) 17 gram/dose powder Active 4 g PO ONCE as needed 2024 12:00am Complies with drug therapy Start: 08-03-2024 End: 10-11-2024 Polyethylene Glycol 3350 (Mi ralax) 17 gram/dose powder Discontinued g PO daily as needed August 03, 2024 12:00am October 11, 2024 12:51pm tamsulosin hydrochloride 0.4 mg oral capsule (1 source) alpha-Adrenergic Mai Start: 03-17-2020 Floma x 0.4 mg oral capsule Dose : 0.4 mg = 1 cap(s), Oral, qDay, # 30 cap(s), 4 Refill(s), Pharmacy: [facility] [address], [address], cm, 03/17/20 13:07:00 EST, Height, kg, 03/17/20 13:07:00 EST, Dosing Weight Start Date: 03/17/20 Status: Ordered Completed/Discontinued Medications Medication Drug Class(es) Dates Sig (Normalized) Sig (Original) abiraterone acetate 500 mg oral tablet (10 sources) Cytochrome P450 17A1 Inhibitor Start: 03-22-2024 End: 05-27-2024 take 1 tablet by mouth once daily 1 hour(s) after mealtime Abiraterone (Zytiga) 500 mg tablet Discontinued 1000 mg PO daily 60 30 March 22, 2024 1:00am May 27, 2024 2:24pm Malignant neoplasm of prostate Malignant neoplasm metastatic to bone Malignant neoplasm of prostate Secondary malignant neoplasm of bone must be taken on empty stomach, at least 1 hr before or 2 hrs after a meal/food acetaminophen 250 mg / aspirin 250 mg / caffeine 65 mg oral tablet (20 sources) Platelet Aggregation Inhibitor, Nonsteroidal Anti-inflammatory Drug, Central Nervous System Stimulant, Methylxanthine Start: 10-06-2023 End: 10-11-2024 Aspirin-Acetamino phen-Caffeine (Excedrin Migraine) 250-250-65 mg tablet Discontinued 1 {tbl} PO EVERY 4-6 HOURS as needed for pain October 06, 2023 12:00am October 11, 2024 12:51pm Start: 08-15-2023 End: 09-10-2023 Zgxtmbi-Kwsdpkjygvjxm-Escxpm ne (Excedrin Migraine) 250-250-65 mg tablet Discontinued 1 {tbl} PO EVERY 6 HOURS NEEDED as needed for pain August 15, 2023 12:00am September 10, 2023 6:37pm Start: 06-28-2020 End: 07-01-2023 Jkdjbar-Rzgskthlcpkvp-Scfnkc ne 1 EACH tablet Discontinued 1 NMA PO NEEDED as needed for Migraine Symptoms June 28, 2020 1:00am July 01, 2023 12:22pm Start: 06-28-2020 End: 07-01-2023 Ydxccop-Tkwvxmvcofhxe-Gxfbik ne Discontinued 1 EACH PO NEEDED June 28, 2020 1:00am July 01, 2023 12:22pm acetaminophen 325 mg / HYDROcodone bitartrate 5 mg oral tablet (20 sources) Opioid Agonist Start: 07-01-2023 End: 08-11-2023 Hydrocodone-Acetaminophen 5- 325 mg tablet Discontinued 1 {tbl} PO TWICE A DAY as needed 0 July 01, 2023 1:00am August 11, 2023 9:06am Start: 07-01-2023 End: 08-11-2023 take 1 tablet by mouth twice daily Hydrocodone-Acetaminophen Discontinued 1 TABLET PO TWICE A DAY July 01, 2023 1:00am August 11, 2023 9:06am Start: 07-05-2020 End: 07-13-2020 Hydrocodone-Acetaminophen 1 TABLET tablet Discontinued 1 {tbl} PO EVERY 4 HOURS NEEDED as needed for Pain 14 7 0 July 06, 2020 July 12, 2020 12:00am July 13, 2020 12:02am Malignant neoplasm of prostate Start: 07-05-2020 End: 07-13-2020 take 1 tablet by mouth every four hours as needed Hydrocodone-Acetaminophen Discontinued 1 TABLET PO EVERY 4 HOURS NEEDED 14 7 July 06, 2020 July 13, 2020 12:02am amoxicillin 875 mg / clavulanate 125 mg oral tablet (8 sources) Penicillin-class Antibacterial Start: 10-12-2024 End: 10-19-2024 Amoxicillin-Pot Clavulanate 875-125 mg tablet Discontinued 1 {tbl} PO Q12H 10 0 October 12, 2024 12:00am October 19, 2024 4:24pm Apalutamide (20 sources) Start: 06-01-2024 End: 09-01-2024 take 1 tablet by mouth once daily Apalutamide (Erleada) 240 mg tablet Discontinued 240 mg PO daily June 01, 2024 1:29pm September 01, 2024 11:38am Malignant neoplasm of prostate Malignant neoplasm of prostate Start: 06-01-2024 End: 09-01-2024 take 1 tablet by mouth once daily Apalutamide (Erleada) 240 mg tablet Discontinued 240 mg PO daily June 01, 2024 1:29pm September 01, 2024 11:38am Start: 05-27-2024 End: 06-01-2024 take 1 tablet by mouth once daily Apalutamide (Erleada) 240 mg tablet Discontinued 240 mg PO daily May 27, 2024 1:00am June 01, 2024 1:31pm cefdinir 300 mg oral capsule (7 sources) Cephalosporin Antibacterial Start: 10-18-2024 End: 11-10-2024 take 1 capsule by mouth twice daily Cefdinir 300 mg capsule Discontinued 300 mg PO TWICE A DAY October 26, 2024 12:00am November 10, 2024 9:38am ciprofloxacin 500 mg oral tablet (20 sources) Quinolone Antimicrobial Start: 11-15-2020 End: 05-25-2021 take 1 tablet by mouth twice daily Ciprofloxacin Hcl (Cipro) 500 mg tablet Discontinued 500 mg PO TWICE A DAY 14 0 November 15, 2020 12:00am May 25, 2021 9:41am Start: 07-05-2020 End: 07-25-2020 take 1 tablet by mouth twice daily Ciprofloxacin Hcl 500 MG tablet Discontinued 500 mg PO TWICE A DAY 20 0 July 06, 2020 1:00am July 25, 2020 2:15pm cyclobenzaprine hydrochloride 5 mg oral tablet (20 sources) Muscle Relaxant Start: 05-24-2024 End: 08-03-2024 take 1 tablet by mouth three times daily as needed for muscle spasms Cyclobenzaprine 5 mg tablet Discontinued 5 mg PO THREE TIMES A DAY as needed for muscle spasm 60 0 May 24, 2024 1:00am August 03, 2024 9:03am Back pain Malignant neoplasm of prostate Malignant neoplasm metastatic to bone Dorsalgia, unspecified Malignant neoplasm of prostate Secondary malignant neoplasm of bone Start: 09-09-2018 End: 12-15-2018 take 1 tablet by mouth once daily as needed Cyclobenzaprine 5 mg tablet Discontinued 5 mg PO DAILY as needed 10 10 0 September 09, 2018 12:00am December 15, 2018 11:46am darolutamide 300 mg oral tablet (20 sources) Start: 09-10-2023 End: 05-24-2024 take 1 tablet by mouth twice daily Darolutamide (Nubeqa) 300 mg tablet Discontinued 600 mg PO TWICE A DAY 120 30 6 September 18, 2023 11:00am December 16, 2023 3:41pm Malignant neoplasm of prostate Malignant neoplasm of prostate dexamethasone 4 mg oral tablet (15 sources) Corticosteroid Start: 07-07-2023 End: 05-24-2024 take 2 tablets by mouth twice daily Dexamethasone 4 mg tablet Discontinued 8 mg PO .COMPLEX 12 July 07, 2023 12:00am May 24, 2024 11:37am 8 mg orally twice daily ONLY the day before, day of, and day after chemotherapy Start: 07-07-2023 take 8 mg by mouth twice daily Dexamethasone Active 8 MG PO .COMPLEX 12 July 07, 2023 12:00am 8 mg orally twice daily ONLY the day before, day of, and day after chemotherapy docusate sodium 100 mg oral capsule (20 sources) Start: 08-03-2024 End: 09-08-2024 take 1 capsule by mouth twice daily Docusate Sodium (Stool Softener) 100 mg capsule Discontinued 100 mg PO TWICE A DAY August 03, 2024 12:00am September 08, 2024 1:37pm Start: 07-06-2020 End: 07-25-2020 take 1 capsule by mouth twice daily Docusate Sodium 100 MG capsule Discontinued 100 mg PO TWICE A DAY 20 0 July 06, 2020 1:00am July 25, 2020 2:17pm doxycycline hyclate 100 mg oral capsule (10 sources) Tetracycline-class Drug Start: 10-18-2024 End: 10-28-2024 take 1 capsule by mouth twice daily Doxycycline Hyclate 100 mg capsule Discontinued 100 mg PO TWICE A DAY October 19, 2024 12:00am October 26, 2024 12:13pm Start: 02-24-2024 End: 03-02-2024 doxycycline hyclate 100 mg o ral capsule Dose : 100 mg = 1 cap(s), Oral, BID, X 7 day(s), # 14 cap(s), 0 Refill(s), 03/02/24 4:08:00 PM EST, Pharmacy: [facility]/pharmacy #[id number], Acute URI, 178.4, cm, 02/23/24 15:38:00 EDT, Height, 119, kg, 02/23/24 15:38:00 EDT, Dosing Weight Start Date: 02/24/24 Stop Date: 03/02/24 Status: Ordered DULoxetine 30 mg delayed release oral capsule (20 sources) Serotonin and Norepinephrine Reuptake Inhibitor Start: 07-07-2023 End: 08-11-2023 take 2 capsules by mouth once daily Duloxetine 30 mg capsule,delayed release(DR/EC) Discontinued 60 mg PO DAILY July 07, 2023 9:11am August 11, 2023 9:05am Start: 07-07-2023 End: 08-11-2023 take 60 mg by mouth once daily Duloxetine Discontinued 60 MG PO DAILY July 07, 2023 9:11am August 11, 2023 9:05am Start: 07-01-2023 End: 07-07-2023 take 1 capsule by mouth twice daily Duloxetine 30 mg capsule,delayed release(DR/EC) Discontinued 30 mg PO TWICE A DAY July 01, 2023 1:00am July 07, 2023 9:13am enzalutamide 40 mg oral tablet (20 sources) Androgen Receptor Inhibitor Start: 09-10-2023 End: 09-10-2023 Enzalutamide (Enzalutamide 40 Mg Tablet) 40 mg tablet Discontinued 80 mg PO TWICE A DAY September 10, 2023 12:00am September 10, 2023 6:38pm Start: 01-21-2023 Xtandi 40 mg o ral tablet Dose : 160 mg = 4 tab(s), Oral, qDay, do not chew or break tablets, # 90 tab(s), 0 Refill(s) Start Date: 01/21/23 Status: Ordered Start: 06-07-2022 End: 09-10-2023 take 1 capsule by mouth once daily Enzalutamide (Xtandi) 40 mg capsule Discontinued 160 mg PO DAILY June 07, 2022 1:00am September 10, 2023 4:02pm famotidine 20 mg oral tablet (20 sources) Histamine-2 Receptor Antagonist Start: 08-15-2023 End: 11-03-2023 take 1 tablet by mouth once daily as needed for gastroesophageal reflux disease Famotidine (Acid Director Microbiology (Famotidine)) 20 mg tablet Discontinued 20 mg PO DAILY NEEDED as needed for GERD August 15, 2023 12:00am November 03, 2023 8:17am Start: 10-17-2021 End: 03-14-2023 take 1 tablet by mouth once daily before mealtime Famotidine (Pepcid Ac) 10 mg tablet Discontinued 10 mg PO DAILY October 17, 2021 12:00am March 14, 2023 1:00pm flecainide acetate 100 mg oral tablet (20 sources) Antiarrhythmic Start: 05-25-2021 End: 06-18-2021 Flecainide 100 mg tablet Discontinued 50 mg PO TWICE A DAY May 25, 2021 9:41am June 18, 2021 11:28am heart Start: 05-25-2021 End: 01-22-2023 Flecainide Discontinued 0 .R OUTE .COMPLEX 180 April 04, 2022 5:50pm January 22, 2023 6:43pm TAKE 1 TABLET TWICE A DAY Start: 11-12-2018 End: 08-03-2024 take 1 tablet by mouth twice daily Flecainide 100 mg tablet Discontinued 100 mg PO TWICE A DAY 180 3 April 14, 2024 5:44pm August 03, 2024 9:11am Start: 10-08-2018 End: 06-28-2020 take 1 tablet by mouth every twelve hours Flecainide 100 mg tablet Discontinued 100 mg PO Q12H 180 3 January 27, 2019 10:31am December 14, 2019 1:51pm furosemide 40 mg oral tablet (20 sources) Loop Diuretic Start: 09-19-2023 End: 08-03-2024 take 1 tablet by mouth once daily Furosemide 40 mg tablet Discontinued 40 mg PO DAILY 30 September 19, 2023 12:00am August 03, 2024 9:03am Start: 12-15-2018 End: 12-14-2019 Furosemide (Lasix) 40 mg tab let Discontinued 20 mg PO DAILY as needed May 06, 2019 2:52pm December 14, 2019 1:27pm Start: 10-14-2018 End: 12-15-2018 take 1 tablet by mouth once daily Furosemide (Lasix) 40 mg tablet Discontinued 40 mg PO DAILY 30 October 14, 2018 12:00am December 15, 2018 11:47am 0.375 ml leuprolide acetate 60 mg/ml prefilled syringe (11 sources) Gonadotropin Releasing Hormone Receptor Agonist Start: 08-03-2024 End: 02-03-2025 Leuprolide (3 Month) (Eligard (3 Month)) 22.5 mg syringe Discontinued 22.5 mg SC .q 3 month 1 January 11, 2025 12:33pm February 03, 2025 2:34pm Malignant neoplasm of prostate Malignant neoplasm metastatic to bone Malignant neoplasm of prostate Secondary malignant neoplasm of bone hormone Start: 08-03-2024 Leuprolide (3 Month) (Eligard (3 Month)) 22.5 mg syringe Active mg SC August 03, 2024 12:00am levoFLOXacin 500 mg oral tablet (10 sources) Quinolone Antimicrobial Start: 09-10-2023 End: 09-23-2023 take 1 tablet by mouth once daily Levofloxacin 500 mg tablet Discontinued 500 mg PO DAILY 7 September 10, 2023 12:00am September 23, 2023 9:00am lidocaine 25 mg/ml / prilocaine 25 mg/ml topical cream (14 sources) Antiarrhythmic, Amide Local Anesthetic Start: 07-07-2023 End: 10-11-2024 Lidocaine-Prilocai ne 2.5-2.5 % cream Discontinued 1 NMA TOPICAL ONCE as needed for port access July 07, 2023 12:00am October 11, 2024 12:52pm Malignant neoplasm of prostate Malignant neoplasm of prostate Start: 07-07-2023 Lidocaine-Pril ocaine Active 1 APPLIC TOPICAL ONCE July 07, 2023 12:00am Magic Mouth Wash (Bmx) 180 mL suspension (10 sources) Start: 09-08-2023 End: 09-10-2023 Magic Mouth Wash (Bmx) 180 m L suspension Discontinued 15 mL PO .Q6HR 180 5 September 08, 2023 12:00am September 10, 2023 6:39pm Stomatitis Other forms of stomatitis diphenhydramine 12.5 mg/5 mL oral liquid 60 mL; aluminum-mag hydroxide-simethicone 400 mg-400 mg-40 mg/5 mL oral susp 60 mL; Lidocaine Viscous 2 % mucosal solution 60 mL; Per 180 mL Start: 09-08-2023 End: 09-10-2023 Magic Mouth Wash (Bmx) 180 m L suspension Discontinued 15 mL PO .Q6HR 180 September 08, 2023 12:00am September 10, 2023 6:39pm diphenhydramine 12.5 mg/5 mL oral liquid 60 mL; aluminum-mag hydroxide-simethicone 400 mg-400 mg-40 mg/5 mL oral susp 60 mL; Lidocaine Viscous 2 % mucosal solution 60 mL; Per 180 mL methylPREDNISolone 4 mg oral tablet (6 sources) Corticosteroid Start: 11-04-2024 End: 11-10-2024 take 1 tablet by mouth once Methylprednisolone (Medrol (Daryn)) 4 mg tablets,dose pack Discontinued 0 PO per package directions November 04, 2024 12:00am November 10, 2024 9:39am PO PER PKG DIR Start: 11-01-2024 methylPREDNIso lone 4 MG Tab Therapy Pack tablet Take 1 tablet by mouth As directed. follow package directions 21 tablet 11/01/2024 Active 24 hr metoprolol succinate 50 mg extended release oral tablet (20 sources) beta-Adrenergic Mai Start: 10-11-2024 End: 10-11-2024 take 1 tablet by mouth once daily Metoprolol Succinate 50 mg tablet extended release 24 hr Discontinued 50 mg PO DAILY October 11, 2024 12:00am October 11, 2024 8:11am Start: 12-08-2023 End: 08-03-2024 take 1 tablet by mouth once daily Metoprolol Succinate 100 mg tablet extended release 24 hr Active 100 mg PO DAILY 90 August 03, 2024 9:11am bp Complies with drug therapy Start: 12-02-2023 Metoprolol Suc cinate ER 50 mg oral TABLET extended release Dose : 100 mg = 2 tab(s), 0 Refill(s) Start Date: 12/02/23 Status: Ordered Repeat number: 1 Start: 09-15-2023 End: 12-08-2023 Metoprolol Succinate 50 mg t ablet extended release 24 hr Discontinued 100 mg PO DAILY 90 September 15, 2023 4:01pm December 08, 2023 9:06am bp Start: 05-06-2019 End: 09-15-2023 take 1 tablet by mouth once daily Metoprolol Succinate 50 mg tablet extended release 24 hr Discontinued 50 mg PO DAILY 90 June 16, 2023 10:35am September 15, 2023 4:02pm bp Start: 11-12-2018 Metoprolol Suc cinate ER 100 mg oral tablet, extended release Dose : 50 mg = 0.5 tab(s), Oral, qDay, # 30 tab(s), 0 Refill(s) Start Date: 11/12/18 Status: Ordered Start: 10-08-2018 End: 05-06-2019 take 1 tablet by mouth once daily Metoprolol Succinate 100 mg tablet extended release 24 hr Discontinued 100 mg PO DAILY 90 January 27, 2019 10:31am May 06, 2019 2:53pm Start: 09-09-2018 End: 10-08-2018 take 1 tablet by mouth once daily Metoprolol Succinate (Toprol Xl) 50 mg tablet extended release 24 hr Discontinued 50 mg PO DAILY 60 September 09, 2018 12:00am October 08, 2018 11:35am ondansetron 4 mg disintegrating oral tablet (14 sources) Serotonin-3 Receptor Antagonist Start: 07-07-2023 End: 08-03-2024 take 1 tablet by mouth every eight hours as needed for nausea and vomiting Ondansetron 4 mg tablet,disintegrating Discontinued 4 mg PO Q8H as needed for nausea and vomiting 30 July 07, 2023 12:00am August 03, 2024 9:03am Malignant neoplasm of prostate Malignant neoplasm of prostate 0.6 ml [id number] 10 mg/ml prefilled syringe (4 sources) Leukocyte Growth Factor Start: 12-02-2023 End: 12-02-2023 inject 0.6 mL by subcutaneous injection once daily Fulphila 6 mg/0.6 mL subcutaneous solution Dose : 6 mg = 0.6 mL, Subcutaneous, qDay, # 0.6 mL, 0 Refill(s) Start Date: 12/02/23 Stop Date: 12/02/23 Status: Ordered Quantity: 0.6 Unit: mL Repeat number: 1 predniSONE 5 mg oral tablet (20 sources) Start: 03-23-2024 End: 08-03-2024 take 1 tablet by mouth twice daily Prednisone 5 mg tablet Discontinued 5 mg PO TWICE A DAY 60 March 23, 2024 1:00am August 03, 2024 9:03am Start: 02-24-2024 End: 02-29-2024 predniSONE 20 mg oral tablet Dose : 40 mg = 2 tab(s), Oral, qDay, X 5 day(s), # 10 tab(s), 0 Refill(s), 02/29/24 4:08:00 PM EST, Pharmacy: [facility]/pharmacy #[id number], Asthma exacerbation, 178.4, cm, 02/23/24 15:38:00 EDT, Height, kg, 02/23/24 15:38:00 EDT, Dosing Weight Start Date: 02/24/24 Stop Date: 02/29/24 Status: Ordered Start: 09-09-2018 End: 12-15-2018 Prednisone 5 mg tablet Disco ntinued 30 mg PO DAILY 60 10 September 09, 2018 12:00am December 15, 2018 11:47am Start: 09-09-2018 End: 12-15-2018 take 30 mg by mouth once daily Prednisone Discontinued 30 MG PO DAILY 60 September 09, 2018 12:00am December 15, 2018 11:47am rivaroxaban 20 mg oral tablet (20 sources) Factor Xa Inhibitor Start: 09-29-2018 End: 08-03-2024 take 1 tablet by mouth at bedtime Rivaroxaban 20 mg tablet Discontinued 20 mg PO AT BEDTIME 90 May 26, 2024 5:35pm August 03, 2024 9:11am BLOOD THINNER Testosterone injection (20 sources) Start: 06-07-2022 End: 07-07-2023 Testosterone injection Discontinued IM every 12 weeks June 07, 2022 1:00am July 07, 2023 9:13am Start: 06-07-2022 Testosterone i njection Active IM every 12 weeks June 07, 2022 1:00am Start: 06-07-2022 Testosterone i njection Active IM every 12 weeks June 07, 2022 12:00am tiZANidine 4 mg oral tablet (20 sources) Central alpha-2 Adrenergic Agonist Start: 07-13-2024 End: 2024 take 1 tablet by mouth three times daily as needed Tizanidine 4 mg tablet Discontinued 4 mg PO THREE TIMES A DAY as needed for muscle spasticity October 11, 2024 12:00am 2024 2:45pm Start: 07-01-2024 End: 09-08-2024 take 1 tablet by mouth every eight hours as needed Tizanidine 4 mg tablet Discontinued 4 mg PO Q8H as needed July 01, 2024 1:00am September 08, 2024 1:36pm Problems Active Problems Problem Classification Problem Date Documented Date Episodic/Chronic Abdominal pain (16 sources) Abdominal pain; Translations: [Unspecified abdominal pain] Episodic Administrative/social admission (20 sources) Patient encounter status; Translations: [Counseling, unspecified] 07-07-2023 Episodic Comment on above: Patient is a 62-year -old male with evidence of bony mets from prostate cancer first diagnosed in 2020. He is currently on the fence as to whether or not he wants to proceed with chemotherapy as recommended by oncology following serial rounds of adjuvant radiation therapy. I held a lengthy conversation with patient and his suggesting that I would not want to proceed with port placement if he is disinclined to proceed with chemotherapy. This is largely due to wanting to justify the inherent risks of the procedure with the expected benefit of having durable venous access for the use during chemotherapy. and Mrs. Edmondson expressed understanding of this rationale. In the event that patient decides to proceed with chemotherapy I did hold a discussion regarding the advantages of ports, their infection risk, and the expected procedure/recovery involved with a port placement. Mr. 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 Given the seriousness of this past time I suggest that we could simply plan for a left-sided port placement to try to circumvent any issues. Lastly, given patient's history of MRSA infection I would like to screen him today for MRSA colonization of the nares and complete treatment if found to be positive. He agrees with this course of action and we will obtain this testing today. Asthma (20 sources) Asthma; Translations: [Unspecified asthma, uncomplicated] 05-14-2021 Chronic Comment on above: WELL CONTROLLED WITH INHALER Cancer of prostate (20 sources) Malignant tumor of prostate; Translations: [Malignant neoplasm of prostate] Onset: 2 Chronic Cardiac dysrhythmias (20 sources) Paroxysmal atrial flutter; Translations: [Unspecified atrial flutter] Onset: 9 Chronic Cardiac dysrhythmias (20 sources) Intermittent palpitations; Translations: [Palpitations] Episodic Coagulation and hemorrhagic disorders (8 sources) Hypercoagulability state; Translations: [Other thrombophilia] Onset: 3 01-21-2023 Chronic Congestive heart failure; nonhypertensive (20 sources) Acute on chronic diastolic heart failure; Translations: [Acute on chronic diastolic (congestive) heart failure] 10-14-2018 Chronic Diseases of white blood cells (20 sources) Leukopenia; Translations: [Neutropenia] 01-28-2023 Chronic Disorders of lipid metabolism (6 sources) Hypercholesterolemia; Translations: [Pure hypercholesterolemia] 01-28-2023 Chronic Maintenance chemotherapy; radiotherapy (10 sources) Patient encounter status; Translations: [Encounter for antineoplastic chemotherapy] 09-23-2023 Chronic Other aftercare (20 sources) Long-term current use of anticoagulant; Translations: [snf (current) use of anticoagulants] 01-21-2023 Episodic Other aftercare (1 source) Follow-up status; Translations: [Encounter for follow-up examination after completed treatment for conditions other than malignant neoplasm] Episodic Other circulatory disease (1 source) H/O: artificial organ/tissue; Translations: [Presence of other vascular implants and grafts] Chronic Other circulatory disease (1 source) Disorder of respiratory system; Translations: [Other specified symptoms and signs involving the circulatory and respiratory systems] Episodic Other ear and sense organ disorders (6 sources) Hearing loss 01-21-2023 Chronic Other gastrointestinal disorders (1 source) Disorder of peritoneum; Translations: [Other specified disorders of peritoneum] Episodic Other lower respiratory disease (20 sources) Dyspnea on exertion; Translations: [Other forms of dyspnea] 06-12-2023 Episodic Other lower respiratory disease (9 sources) Other forms of dyspnea; Translations: [Other respiratory abnormalities] Onset: 5 06-12-2023 Episodic Other lower respiratory disease (1 source) Dyspnea; Translations: [Shortness of breath] Episodic Other lower respiratory disease (1 source) Abnormal findings on diagnostic imaging of lung; Translations: [Other nonspecific abnormal finding of lung field] Episodic Other screening for suspected conditions (not mental disorders or infectious disease) (20 sources) Raised prostate specific antigen; Translations: [Rising PSA following treatment for malignant neoplasm of prostate] Onset: 5 06-03-2022 Episodic Other upper respiratory disease (10 sources) Hoarse; Translations: [Dysphonia] 03-11-2024 Episodic Pleurisy; pneumothorax; pulmonary collapse (1 source) Pleural effusion; Translations: [Pleural effusion, not elsewhere classified] Episodic Residual codes; unclassified (20 sources) Edema; Translations: [Edema, unspecified] 05-25-2021 Episodic Residual codes; unclassified (2 sources) Edema, unspecified; Translations: [Edema] Episodic Residual codes; unclassified (4 sources) Requires a tetanus booster 01-21-2023 Episodic Residual codes; unclassified (6 sources) Requires varicella vaccination 01-21-2023 Episodic Residual codes; unclassified (3 sources) Edema of lower extremity 01-27-2024 Episodic Residual codes; unclassified (10 sources) Bilateral lower limb edema; Translations: [Localized edema] 11-04-2023 Episodic Residual codes; unclassified (1 source) Other general symptoms and signs; Translations: [Clinical finding (finding)] Episodic Secondary malignancies (20 sources) Secondary malignant neoplasm of bone; Translations: [Secondary malignant neoplasm of bone] 03-31-2023 Chronic Secondary malignancies (20 sources) Regional lymph node metastasis present ; Translations: [Secondary and unspecified malignant neoplasm of lymph node, unspecified] 03-17-2023 Chronic Secondary malignancies (20 sources) Secondary malignant neoplasm of bone; Translations: [Secondary malignant neoplasm of bone and bone marrow] Onset: 5 03-17-2023 Chronic Secondary malignancies (20 sources) Secondary and unspecified malignant neoplasm of lymph node, unspecified; Translations: [Secondary and unspecified malignant neoplasm of lymph nodes, site unspecified] Onset: 5 03-17-2023 Chronic Spondylosis; intervertebral disc disorders; other back problems (2 sources) Lumbar spondylosis 07-13-2024 Chronic Unclassified (1 source) Cough, unspecified; Translations: [Cough, unspecified] Onset: Past or Other Problems Problem Classification Problem Date Documented Date Episodic/Chronic Biliary tract disease (20 sources) Acute cholecystitis due to biliary calculus; Translations: [Calculus of gallbladder with acute cholecystitis without obstruction] Onset: 10-28-2024 10-11-2024 Episodic Mood disorders (3 sources) Mood disorders Onset: 10-12-2021 Resolved: 11-01-2024 10-12-2021 Other aftercare (5 sources) Encounter for adjustment and management of vascular access device; Translations: [Fitting and adjustment of vascular catheter] Onset: 08-31-2024 07-10-2023 Episodic Other aftercare (1 source) intermediate accountant (current) use of anticoagulants; Translations: [intermediate accountant (current) use of anticoagulants] Onset: 10-28-2024 Episodic Other lower respiratory disease (2 sources) Shortness of breath; Translations: [Shortness of breath] Onset: 07-13-2024 Episodic Other nervous system disorders (1 source) Other acute postprocedural pain; Translations: [Other acute postprocedural pain] Onset: 10-28-2024 Episodic Other upper respiratory infections (2 sources) Acute pharyngitis, unspecified; Translations: [Acute pharyngitis, unspecified] Onset: 02-23-2024 Episodic Spondylosis; intervertebral disc disorders; other back problems (12 sources) Backache; Translations: [Dorsalgia, unspecified] Onset: 05-24-2024 05-24-2024 Episodic Comment on above: low back LESION ON S PINE/SCIATIC PAIN Unclassified (1 source) Cough, unspecified; Translations: [Cough, unspecified] Onset: 02-23-2024 Results Test Name Value Interpretation Reference Range Facility Cardiology Visit Reporton Cardiology Visit Report Normal [facility] Oncology Visit Reporton Oncology Visit Report Normal [facility] Surgery Visit Reporton 11-10 Surgery Visit Report Normal [facility] Absolute lymphocyte countOrd ered By: Jignesh Purcell on 11-04-2024 Lymphocytes Auto (Unsp spec) [#/Vol] 0.79 10*3/uL Low 0.83-4.51 [facility] Absolute neutrophil countOrd ered [facility] 11-04-2024 Neutrophils (Bld) [#/Vol] 4.2 10*3/uL 2.0-7.7 [facility] Anion gap in Serum or Plasma [facility]: [facility] on 11-04-2024 Anion gap [Moles/Vol] 12 mmol/L 5-15 [facility] Automated lymphocyte count a s percentage of total leukocytesOrdered By: Jignesh Purcell on 11-04-2024 Lymphocytes/100 WBC Auto (Unsp spec) 13.7 % Low 19-41 [facility] BUN/creatinine ratioOrdered By: [facility] Center[facility] Purcell on 11-04-2024 Urea nitrogen/Creatinine [Mass ratio] 32.7 mg/mg High 10-20 [facility] Basophil percentageOrdered B y: Jignesh Purcell on 11-04-2024 Basophils/100 WBC (Bld) 0.7 % 0-1 [facility] Bilirubin, totalOrdered By: Jignesh Purcell on 11-04-2024 Bilirubin [Mass/Vol] 0.29 mg/dL 0.00-1.30 [facility] CBC W/Diff, Automatedon 10-26 Absolute Lymph 0.79 X10 3/uL Low 0.83-4.51 [facility] Comment on above: Performed By: #### L 100.0100, L501.9940, L500.4050 ####[facility] [address] [place], [address] Absolute Neut 4.2 X10 3/uL Normal 2.0-7.7 [facility] Comment on above: Performed By: #### L 100.0100, L501.9940, L500.4050 ####[facility] [address] [place], [address] Basophils/100 WBC (Bld) 0.7 % Normal 0-1 [facility] Comment on above: Performed By: #### L 100.0100, L501.9940, L500.4050 ####[facility] [address] [place], [address] Eosinophils/100 WBC (Bld) 1.2 % Normal 0-5 [facility] Comment on above: Performed By: #### L 100.0100, L501.9940, L500.4050 ####[facility] [address] [place], [address] Erythrocyte distribution width (RBC) [Ratio] 15.3 % High 11.6-14.6 [facility] Comment on above: Performed By: #### L 100.0100, L501.9940, L500.4050 ####[facility] [address] [place], [address] Hematocrit (Bld) [Volume fraction] 30.4 % Low 40-54 [facility] Comment on above: Performed By: #### L 100.0100, L501.9940, L500.4050 ####[facility] [address] [place], [address] Hemoglobin (Bld) [Mass/Vol] 9.7 g/dL Low 13.0-16.5 [facility] Comment on above: Performed By: #### L 100.0100, L501.9940, L500.4050 ####[facility] [address] [place], [address] IG% 1.400 High 0.0-0.9 [facility] Comment on above: Result Comment: IG% - Immature Granulocytes (promyelocytes, myelocytes andmetamyelocytes) > 1% indicates that a LEFT SHIFT is Present. Performed By: #### L 100.0100, L501.9940, L500.4050 ####[facility] [address] [place], [address] Lymphocytes/100 WBC (Bld) 13.7 % Low 19-41 [facility] Comment on above: Performed By: #### L 100.0100, L501.9940, L500.4050 ####[facility] [address] [place], [address] MCH (RBC) [Entitic mass] 27.2 pg Normal 27.0-32.0 [facility] Comment on above: Performed By: #### L 100.0100, L501.9940, L500.4050 ####[facility] [address] [place], [address] MCHC (RBC) [Mass/Vol] 31.9 g/dL Low 32-36 [facility] Comment on above: Performed By: #### L 100.0100, L501.9940, L500.4050 ####[facility] [address] [place], [address] MCV (RBC) [Entitic vol] 85.2 fL Normal 80-94 [facility] Comment on above: Performed By: #### L 100.0100, L501.9940, L500.4050 ####[facility] [address] [place], [address] Monocytes/100 WBC (Bld) 9.5 % Normal 0-10 [facility] Comment on above: Performed By: #### L 100.0100, L501.9940, L500.4050 ####[facility] [address] [place], [address] Neutrophils/100 WBC (Bld) 73.5 % High 47-70 [facility] Comment on above: Performed By: #### L 100.0100, L501.9940, L500.4050 ####[facility] [address] [place], [address] Nucleated RBC (Bld) [#/Vol] 0 10*3/uL Normal 0-5 [facility] Comment on above: Performed By: #### L 100.0100, L501.9940, L500.4050 ####[facility] [address] [place], [address] Platelet mean volume (Bld) [Entitic vol] 8.6 fL Normal 6.2-12.0 [facility] Comment on above: Performed By: #### L 100.0100, L501.9940, L500.4050 ####[facility] [address] [place], [address] Platelets (Bld) [#/Vol] 368 10*3/uL Normal 150-450 [facility] Comment on above: Performed By: #### L 100.0100, L501.9940, L500.4050 ####[facility] [address] [place], [address] RBC (Bld) [#/Vol] 3.57 10*6/uL Low 4.6-6.2 [facility] Comment on above: Performed By: #### L 100.0100, L501.9940, L500.4050 ####[facility] [address] [place], [address] RDW SD 47.5 fl High 35.1-43.9 [facility] Comment on above: Performed By: #### L 100.0100, L501.9940, L500.4050 ####[facility] [address] [place], [address] WBC (Bld) [#/Vol] 5.8 10*3/uL Normal 4.4-11.0 [facility] Comment on above: Performed By: #### L 100.0100, L501.9940, L500.4050 ####[facility] [address] [place], [address] Carbon dioxide, total [Moles /volume] in Central venous bloodOrdered By: Jignesh Purcell on 11-04-2024 CO2 [Moles/Vol] 25.3 mmol/L 21.0-32.0 [facility] Chloride assayOrdered By: Cash Purcell on 11-04-2024 Chloride [Moles/Vol] 104 mmol/L 98-108 [facility] Comprehensive Metabolic Prof ilon 11-04-2024 Albumin [Mass/Vol] 3.4 g/dL Normal 3.4-4.8 [facility] Comment on above: Performed By: #### L 100.0100, L501.9940, L500.4050 ####[facility] [address] [place], [address] Albumin/Globulin [Mass ratio] 1.0 {ratio} Normal 0.9-2.4 [facility] Comment on above: Performed By: #### L 100.0100, L501.9940, L500.4050 ####[facility] [address] [place], [address] ALK PHOS 406 U/L High 40-129 [facility] Comment on above: Performed By: #### L 100.0100, L501.9940, L500.4050 ####[facility] [address] [place], [address] ALT [Catalytic activity/Vol] 35 U/L Normal <=46 [facility] Comment on above: Performed By: #### L 100.0100, L501.9940, L500.4050 ####[facility] [address] [place], [address] AST [Catalytic activity/Vol] 77 U/L High <=37 [facility] Comment on above: Performed By: #### L 100.0100, L501.9940, L500.4050 ####[facility] [address] [place], [address] Bilirubin [Mass/Vol] 0.29 mg/dL Normal 0.00-1.30 [facility] Comment on above: Performed By: #### L 100.0100, L501.9940, L500.4050 ####[facility] [address] [place], [address] BUN/CRE 32.7 RATIO High 10-20 [facility] Comment on above: Performed By: #### L 100.0100, L501.9940, L500.4050 ####[facility] [address] [place], [address] Calcium [Mass/Vol] 9.2 mg/dL Normal 7.6-11.0 [facility] Comment on above: Performed By: #### L 100.0100, L501.9940, L500.4050 ####[facility] [address] [place], [address] Chloride [Moles/Vol] 104 mmol/L Normal 98-108 [facility] Comment on above: Performed By: #### L 100.0100, L501.9940, L500.4050 ####[facility] [address] [place], [address] CO2 [Moles/Vol] 25.3 mmol/L Normal 21.0-32.0 [facility] Comment on above: Performed By: #### L 100.0100, L501.9940, L500.4050 ####[facility] [address] [place], [address] Creatinine [Mass/Vol] 0.56 mg/dL Low 0.70-1.20 [facility] Comment on above: Performed By: #### L 100.0100, L501.9940, L500.4050 ####[facility] [address] [place], [address] ECRCL 165.54 ml/min Normal 50-250 [facility] Comment on above: Performed By: #### L 100.0100, L501.9940, L500.4050 ####[facility] [address] [place], [address] GAP 12 Normal 5-15 [facility] Comment on above: Performed By: #### L 100.0100, L501.9940, L500.4050 ####[facility] [address] [place], [address] GFR/1.73 sq M.predicted among non-blacks MDRD (S/P/Bld) [Vol rate/Area] 112 mL/min/{1.73_m2} Normal >60 [facility] Comment on above: Result Comment: mL/m in/1.73m2 CKD-EPI Creatinine Equation (2020) Performed By: #### L 100.0100, L501.9940, L500.4050 ####[facility] [address] [place], [address] Globulin (S) [Mass/Vol] 3.3 g/dL Normal 2.2-4.2 [facility] Comment on above: Performed By: #### L 100.0100, L501.9940, L500.4050 ####[facility] [address] [place], [address] Glucose [Mass/Vol] 97 mg/dL Normal 70-99 [facility] Comment on above: Performed By: #### L 100.0100, L501.9940, L500.4050 ####[facility] [address] [place], [address] Potassium [Moles/Vol] 3.9 mmol/L Normal 3.3-5.1 [facility] Comment on above: Performed By: #### L 100.0100, L501.9940, L500.4050 ####[facility] [address] [place], [address] Sodium [Moles/Vol] 141 mmol/L Normal 133-145 [facility] Comment on above: Performed By: #### L 100.0100, L501.9940, L500.4050 ####[facility] [address] [place], [address] T PROT 6.8 g/dL Normal 5.9-8.4 [facility] Comment on above: Performed By: #### L 100.0100, L501.9940, L500.4050 ####[facility] [address] [place], [address] Urea nitrogen [Mass/Vol] 18 mg/dL Normal 4-19 [facility] Comment on above: Performed By: #### L 100.0100, L501.9940, L500.4050 ####[facility] [address] [place], [address] Eosinophil percentageOrdered By: Jignesh Purcell on 11-04-2024 Eosinophils/100 WBC (Bld) 1.2 % 0-5 [facility] Erythrocyte distribution wid th ratioOrdered By: [facility] Jazzy on 11-04-2024 Erythrocyte distribution width (RBC) [Ratio] 15.3 % High 11.6-14.6 [facility] Erythrocyte distribution wid th standard deviationOrdered By: [facility] Purcell on 11-04-2024 Erythrocyte distribution width (RBC) [Ratio] 47.5 fl High 35.1-43.9 [facility] Glomerular filtration rate ( GFR) estimation/1.73 sq m using serum, plasma, or whole bOrdered By: Jignesh Purcell on 11-04-2024 GFR/1.73 sq M.predicted among non-blacks MDRD (S/P/Bld) [Vol rate/Area] 112 mL/min/{1.73_m2} >60 [facility] Comment on above: mL/min/1.73m2 CKD-EP I Creatinine Equation (2020) Hematocrit Auto (Bld) [Volum e fraction]Ordered By: Jignesh Purcell on 11-04-2024 Hematocrit (Bld) [Volume fraction] 30.4 % Low 40-54 [facility] Hemoglobin measurementOrdere d By: Jignesh Purcell on 11-04-2024 Hemoglobin (Bld) [Mass/Vol] 9.7 g/dL Low 13.0-16.5 [facility] Immature granulocytes/100 WB C Auto (Bld)Ordered By: Jignesh Purcell on 11-04-2024 Immature granulocytes/100 WBC (Bld) 1.400 % High 0.0-0.9 [facility] Comment on above: IG% - Immature Granu locytes (promyelocytes, myelocytes and metamyelocytes) > 1% indicates that a LEFT SHIFT is Present. Laboratory - Chemistry and C hemistry - challengeOrdered By: Jignesh Purcell on 11-04-2024 AST [Catalytic activity/Vol] 77 U/L High <38 [facility] MCV (mean corpuscular volume ) determinationOrdered By: Jignesh Purcell on 11-04-2024 MCV (RBC) [Entitic vol] 85.2 fL 80-94 [facility] Mean corpuscular hemoglobin (MCH) determinationOrdered By: Jignesh Purcell on 11-04-2024 MCH (RBC) [Entitic mass] 27.2 pg 27.0-32.0 [facility] Mean corpuscular hemoglobin concentration (MCHC) determinationOrdered By: Jignesh Purcell on 11-04-2024 MCHC (RBC) [Mass/Vol] 31.9 g/dL Low 32-36 [facility] Mean platelet volume determi nationOrdered By: Jignesh Purcell on 11-04-2024 Platelet mean volume (Bld) [Entitic vol] 8.6 fL 6.2-12.0 [facility] Monocyte percentageOrdered B y: Jignesh Purcell on 11-04-2024 Monocytes/100 WBC (Bld) 9.5 % 0-10 [facility] Neutrophil percentageOrdered By: Jignesh Purcell on 11-04-2024 Neutrophils/100 WBC (Bld) 73.5 % High 47-70 [facility] Nucleated red blood cell per centageOrdered By: Jignesh Purcell on 11-04-2024 Nucleated RBC/100 WBC (Bld) [Ratio] 0 % 0-5 [facility] Oncology Visit Reporton 10-26 Oncology Visit Report Normal [facility] PSA,Total- Diagnosticon 10-26 PSA, DIAGNOSTIC 11.80 ng/mL High 0.00-4.00 [facility] Comment on above: Result Comment: This test was performed using the [employer] tPSAmethod. Measured values of a patient??sample can varydepending on the testing procedure used. PSA valuesdetermined on patient samples by different testingprocedures cannot be used interchangeably. If there is achange in PSA assays while monitoring therapy, sequentialtesting should be performed to confirm baseline values. Performed By: #### L 100.0100, L501.9940, L500.4050 ####[facility] [address] [place], [place], [address] Platelet countOrdered By: Cash Purcell on 11-04-2024 Platelets (Bld) [#/Vol] 368 10*3/uL 150-450 [facility] Potassium measurement (mass/ volume)Ordered By: Jignesh Purecll on 11-04-2024 Potassium (Unsp spec) [Mass/Vol] 3.9 mmol/L 3.3-5.1 [facility] RBC Auto (Bld) [#/Vol]Ordere d By: Jignesh Purcell on 11-04-2024 RBC (Bld) [#/Vol] 3.57 10*6/uL Low 4.6-6.2 [facility] Serum creatinine measurement (mass/volume)Ordered By: Jignesh Purcell on 11-04-2024 Creatinine [Mass/Vol] 0.56 mg/dL Low 0.70-1.20 [facility] Serum globulin measurementOr dered By: Jignesh Purcell on 11-04-2024 Globulin (S) [Mass/Vol] 3.3 g/dL 2.2-4.2 [facility] Serum glucose measurement (m ass/volume)Ordered By: Jignesh Purcell on 11-04-2024 Glucose [Mass/Vol] 97 mg/dL 70-99 [facility] Serum or plasma alanine yeung otransferase (ALT) measurementOrdered By: Jignesh Purcell on 11-04-2024 ALT [Catalytic activity/Vol] 35 U/L <47 [facility] Serum or plasma albumin delia urement (mass/volume)Ordered By: Kristiealejandro Purcell on 11-04-2024 Albumin [Mass/Vol] 3.4 g/dL 3.4-4.8 [facility] Serum or plasma albumin/glob ulin mass ratioOrdered By: Jignesh Purcell on 11-04-2024 Albumin/Globulin [Mass ratio] 1.0 {ratio} 0.9-2.4 [facility] Serum or plasma alkaline jeffry sphatase measurementOrdered By: Jignesh Purcell on 11-04-2024 ALP [Catalytic activity/Vol] 406 U/L High 40-129 [facility] Serum or plasma calcium delia urement (mass/volume)Ordered By: Jignesh Purcell on 11-04-2024 Calcium [Mass/Vol] 9.2 mg/dL 7.6-11.0 [facility] Serum or plasma urea nitroge n measurement (mass/volume)Ordered By: Jignesh Purcell on 11-04-2024 Urea nitrogen [Mass/Vol] 18 mg/dL 4-19 [facility] Sodium levelOrdered By: Kristie alejandro Jazzy on 11-04-2024 Sodium [Moles/Vol] 141 mmol/L 133-145 [facility] Total proteinOrdered By: Moses silvano Jazzy on 11-04-2024 Protein [Mass/Vol] 6.8 g/dL 5.9-8.4 [facility] White blood cell (WBC) count Ordered By: Jignesh Purcell on 11-04-2024 WBC (Bld) [#/Vol] 5.8 10*3/uL 4.4-11.0 [facility] CBC AND ELECTRONIC DIFFon Abs Baso Auto < Normal 0.00-0.09 [facility] Comment on above: Performed By: #### L AB980 #### U [facility] (DEFAULT) [address] [place] [address] Basophils/100 WBC (Bld) 0.5 % Normal [facility] Comment on above: Performed By: #### L AB980 #### OSAkin [facility] (DEFAULT) [address] [place] [address] DIFF STATUS Electronic Differential Normal [facility] Comment on above: Performed By: #### L AB980 #### [facility] (DEFAULT) [address] [place] [address] Eosinophils (Bld) [#/Vol] 0.15 10*3/uL Normal 0.00-0.48 [facility] Comment on above: Performed By: #### L AB980 #### [facility] (DEFAULT) [address] [place] [address] Eosinophils/100 WBC (Bld) 3.9 % Normal [facility] Comment on above: Performed By: #### L AB980 #### [facility] (DEFAULT) [address] [place] [address] Hematocrit (Bld) [Volume fraction] 30.3 % Low 39.6-48.8 [facility] Comment on above: Performed By: #### L AB980 #### [facility] (DEFAULT) [address] [place] [address] Hemoglobin (Bld) [Mass/Vol] 9.6 g/dL Low 13.4-16.8 [facility] Comment on above: Performed By: #### L AB980 #### [facility] (DEFAULT) [address] [place] [address] Immature Grans % 0.8 % Normal [facility] Comment on above: Performed By: #### L AB980 #### [facility] (DEFAULT) [address] [place] [address] Immature Grans Absolute < Normal <=0.07 [facility] Comment on above: Performed By: #### L AB980 #### U [facility] (DEFAULT) [address] [place] [address] Lymphocytes (Bld) [#/Vol] 0.65 10*3/uL Low 0.83-3.57 [facility] Comment on above: Performed By: #### L AB980 #### [facility] (DEFAULT) [address] [place] [address] Lymphocytes/100 WBC (Bld) 16.8 % Normal [facility] Comment on above: Performed By: #### L AB980 #### U [facility] (DEFAULT) [address] [place] [address] MCV (RBC) [Entitic vol] 83.9 fL Normal 79.0-94.5 [facility] Comment on above: Performed By: #### L AB980 #### [facility] (DEFAULT) [address] [address] Mean Cell Hgb 26.6 pg Normal 26.1-33.3 [facility] Comment on above: Performed By: #### L AB980 #### [facility] (DEFAULT) [address] [place] [address] Mean Cell Hgb Conc 31.7 g/dL Low 31.9-36.5 [facility] Comment on above: Performed By: #### L AB980 #### [facility] (DEFAULT) [address] [place] [address]65 Monocytes (Bld) [#/Vol] 0.58 10*3/uL Normal 0.24-0.93 [facility] Comment on above: Performed By: #### L AB980 #### [facility] (DEFAULT) [address] [place] [address] Monocytes/100 WBC (Bld) 14.9 % Normal [facility] Comment on above: Performed By: #### L AB980 #### [facility] (DEFAULT) [address] [address] Nucleated RBC 0.0 /100 WBC Normal <=0.2 [facility] Comment on above: Performed By: #### L AB980 #### [facility] (DEFAULT) [address] [place] [address] Platelet mean volume (Bld) [Entitic vol] 8.6 fL Low 8.7-12.3 [facility] Comment on above: Performed By: #### L AB980 #### [facility] (DEFAULT) [address] [place] [address] Platelets (Bld) [#/Vol] 334 10*3/uL Normal 146-337 [facility] Comment on above: Performed By: #### L AB980 #### [facility] (DEFAULT) [address] [place] [address] RBC (Bld) [#/Vol] 3.61 10*6/uL Low 4.38-5.83 [facility] Comment on above: Performed By: #### L AB980 #### [facility] (DEFAULT) [address] [place] [address] RBC Distribution 15.4 % High 10.9-14.3 [facility] Comment on above: Performed By: #### L AB980 #### [facility] (DEFAULT) [address] [place] [address] Segs + Bands Auto 63.1 % Normal [facility] Comment on above: Performed By: #### L AB980 #### [facility] (DEFAULT) [address] [place] [address] Segs + Bands,Absolute Auto 2.45 K/uL Normal 1.57-6.19 [facility] Comment on above: Performed By: #### L AB980 #### U [facility] (DEFAULT) [address] [place] [address] WBC (Bld) [#/Vol] 3.88 10*3/uL Normal 3.73-10.10 [facility] Comment on above: Performed By: #### L [id number] #### [facility] (DEFAULT) [address] [place] [address] CMPN WITHOUT GLUCOSEon 11-01 Albumin [Mass/Vol] 3.3 g/dL Low 3.5-5.0 [facility] Comment on above: Performed By: #### C MPNG #### U [facility] (DEFAULT) [address] [place] [address] ALP [Catalytic activity/Vol] 194 U/L High 32-126 [facility] Comment on above: Performed By: #### C MPNG #### U [facility] (DEFAULT) [address] [place] [address] 40665 ALT [Catalytic activity/Vol] 18 U/L Normal 10-52 [facility] Comment on above: Performed By: #### C MPNG #### U [facility] (DEFAULT) [address] [place] [address] 17494 Anion gap [Moles/Vol] 9 mmol/L Normal 7-17 [facility] Comment on above: Performed By: #### C MPNG #### U [facility] (DEFAULT) [address] [place] [address] 79750 AST [Catalytic activity/Vol] 18 U/L Normal 10-39 [facility] Comment on above: Performed By: #### C MPNG #### [facility] (DEFAULT) [address] [place] [address]396 Bilirubin [Mass/Vol] 0.6 mg/dL Normal <1.5 [facility] Comment on above: Performed By: #### C MPNG #### U [facility] (DEFAULT) [address] [place] [address]114 Calcium [Mass/Vol] 8.8 mg/dL Normal 8.6-10.5 [facility] Comment on above: Performed By: #### C MPNG #### U [facility] (DEFAULT) [address] [place] [address] 28738 Chloride [Moles/Vol] 102 mmol/L Normal 98-108 [facility] Comment on above: Performed By: #### C MPNG #### U [facility] (DEFAULT) [address] [place] [address]77 CO2 [Moles/Vol] 28 mmol/L Normal 21-31 [facility] Comment on above: Performed By: #### C MPNG #### U [facility] (DEFAULT) [address] [place] [address]28 Creatinine [Mass/Vol] 0.55 mg/dL Low 0.70-1.30 [facility] Comment on above: Performed By: #### C MPNG #### U [facility] (DEFAULT) [address] [place] [address]60[address] eGFR, CKD-EPI, Male > Normal >=60 [facility] Comment on above: Result Comment: Repo rted eGFR is based on the CKD-EPI 2020 equation using creatinine, age, and sex. Performed By: #### C MPNG #### U [facility] (DEFAULT) [address] [place] [address] Potassium [Moles/Vol] 3.6 mmol/L Normal 3.5-5.0 [facility] Comment on above: Performed By: #### C MPNG #### [facility] (DEFAULT) [address] [place] [address] 56609 Protein [Mass/Vol] 6.7 g/dL Normal 6.4-8.3 [facility] Comment on above: Performed By: #### C MPNG #### U [facility] [facility] (DEFAULT) [address] [place] [address] Sodium [Moles/Vol] 135 mmol/L Normal 135-145 [facility] Comment on above: Performed By: #### C MPNG #### [facility] (DEFAULT) [address] [place] [address] Urea nitrogen [Mass/Vol] 14 mg/dL Normal 7-25 [facility] Comment on above: Performed By: #### C MPNG #### [facility] (DEFAULT) [address] [place] [address] Urea nitrogen/Creatinine [Mass ratio] 25 mg/mg Normal [facility] Comment on above: Performed By: #### C MPNG #### [facility] ([facility]) [address] [address] 12 Lead EKGon 10-26-2024 12 Lead EKG Normal [facility] Discharge Instructionon 07-0 Discharge Instruction Normal [facility] MR/POSTOP.ANEon 10-26-2024 MR/POSTOP.ANE Normal [facility] MR/[id number] 10-26-2024 MR/POSTOPAN2 Normal [facility] Operative Reporton Operative Report Normal [facility] Surgery Specimen Level IIIon 10-26-2024 Surgery Specimen Level III Normal [facility] Comment on above: Performed By: #### P SUIII ####[facility] [address] [place], [address] Surgery Visit Reporton 10-22 Surgery Visit Report Normal [facility] Culture, Anaerobic Any Sourc arpit 10-20-2024 CUAN Normal [facility] Comment on above: Performed By: #### M 100.3000, M100.4001, M100.2000 ####[facility] [address] [place], [address] Absolute lymphocyte countOrd ered By: Jignesh Purcell on 10-19-2024 Lymphocytes Auto (Unsp spec) [#/Vol] 0.48 10*3/uL Low 0.83-4.51 [facility] Absolute neutrophil countOrd ered By: Jignesh Purcell on 10-19-2024 Neutrophils (Bld) [#/Vol] 2.6 10*3/uL 2.0-7.7 [facility] Anion gap in Serum or Plasma Ordered By: Jignesh Purcell on 10-19-2024 Anion gap [Moles/Vol] 12 mmol/L 5-15 [facility] Automated lymphocyte count a s percentage of total leukocytesOrdered By: Jignesh Purcell on 10-19-2024 Lymphocytes/100 WBC Auto (Unsp spec) 13.6 % Low 19-41 [facility] BUN/creatinine ratioOrdered By: Jignesh Purcell on 10-19-2024 Urea nitrogen/Creatinine [Mass ratio] 28.5 mg/mg High 10-20 [facility] Basophil percentageOrdered B y: Jignesh Purcell on 10-19-2024 Basophils/100 WBC (Bld) 0.3 % 0-1 [facility] Bilirubin, totalOrdered By: Jignesh Purcell on 10-19-2024 Bilirubin [Mass/Vol] 0.41 mg/dL 0.00-1.30 [facility] CBC W/Diff, Automatedon 09-27 Absolute Lymph 0.48 X10 3/uL Low 0.83-4.51 [facility] Comment on above: Performed By: #### L 100.0100, L500.4050, L501.9940 ####[facility] [address] [place], [address] Absolute Neut 2.6 X10 3/uL Normal 2.0-7.7 [facility] Comment on above: Performed By: #### L 100.0100, L500.4050, L501.9940 ####[facility] [address] [place], [address] Basophils/100 WBC (Bld) 0.3 % Normal 0-1 [facility] Comment on above: Performed By: #### L 100.0100, L500.4050, L501.9940 ####[facility] [address] [place], [address] Eosinophils/100 WBC (Bld) 2.3 % Normal 0-5 [facility] Comment on above: Performed By: #### L 100.0100, L500.4050, L501.9940 ####[facility] [address] [place], [address] Erythrocyte distribution width (RBC) [Ratio] 15.5 % High 11.6-14.6 [facility] Comment on above: Performed By: #### L 100.0100, L500.4050, L501.9940 ####[facility] [address] [place], [address] Hematocrit (Bld) [Volume fraction] 30.1 % Low 40-54 [facility] Comment on above: Performed By: #### L 100.0100, L500.4050, L501.9940 ####[facility] [address] [place], [address] Hemoglobin (Bld) [Mass/Vol] 9.7 g/dL Low 13.0-16.5 [facility] Comment on above: Performed By: #### L 100.0100, L500.4050, L501.9940 ####[facility] [address] [place], [address] IG% 0.600 Normal 0.0-0.9 [facility] Comment on above: Result Comment: IG% - Immature Granulocytes (promyelocytes, myelocytes andmetamyelocytes) > 1% indicates that a LEFT SHIFT is Present. Performed By: #### L 100.0100, L500.4050, L501.9940 ####[facility] [address] [place], [address] Lymphocytes/100 WBC (Bld) 13.6 % Low 19-41 [facility] Comment on above: Performed By: #### L 100.0100, L500.4050, L501.9940 ####[facility] [address] [place], [address] MCH (RBC) [Entitic mass] 27.6 pg Normal 27.0-32.0 [facility] Comment on above: Performed By: #### L 100.0100, L500.4050, L501.9940 ####[facility] [address] [place], [address] MCHC (RBC) [Mass/Vol] 32.2 g/dL Normal 32-36 [facility] Comment on above: Performed By: #### L 100.0100, L500.4050, L501.9940 ####[facility] [address] [place], [address] MCV (RBC) [Entitic vol] 85.8 fL Normal 80-94 [facility] Comment on above: Performed By: #### L 100.0100, L500.4050, L501.9940 ####[facility] [address] [place], [address] Monocytes/100 WBC (Bld) 9.6 % Normal 0-10 [facility] Comment on above: Performed By: #### L 100.0100, L500.4050, L501.9940 ####[facility] [address] [place], [address] Neutrophils/100 WBC (Bld) 73.6 % High 47-70 [facility] Comment on above: Performed By: #### L 100.0100, L500.4050, L501.9940 ####[facility] [address] [place], [address] Nucleated RBC (Bld) [#/Vol] 0 10*3/uL Normal 0-5 [facility] Comment on above: Performed By: #### L 100.0100, L500.4050, L501.9940 ####[facility] [address] [place], [address] Platelet mean volume (Bld) [Entitic vol] 8.9 fL Normal 6.2-12.0 [facility] Comment on above: Performed By: #### L 100.0100, L500.4050, L501.9940 ####[facility] [address] [place], [address] Platelets (Bld) [#/Vol] 351 10*3/uL Normal 150-450 [facility] Comment on above: Performed By: #### L 100.0100, L500.4050, L501.9940 ####[facility] [address] [place], [address] RBC (Bld) [#/Vol] 3.51 10*6/uL Low 4.6-6.2 [facility] Comment on above: Performed By: #### L 100.0100, L500.4050, L501.9940 ####[facility] [address] [place], [address] RDW SD 48.0 fl High 35.1-43.9 [facility] Comment on above: Performed By: #### L 100.0100, L500.4050, L501.9940 ####[facility] [address] [place], [address] WBC (Bld) [#/Vol] 3.5 10*3/uL Low 4.4-11.0 [facility] Comment on above: Performed By: #### L 100.0100, L500.4050, L501.9940 ####[facility] [address] [place], [address] Carbon dioxide, total [Moles /volume] in Central venous bloodOrdered By: Jignesh Purcell on 10-19-2024 CO2 [Moles/Vol] 22.9 mmol/L 21.0-32.0 [facility] Chloride assayOrdered By: Cash Purcell on 10-19-2024 Chloride [Moles/Vol] 101 mmol/L 98-108 [facility] Comprehensive Metabolic Prof ilon 10-19-2024 Albumin [Mass/Vol] 3.3 g/dL Low 3.4-4.8 [facility] Comment on above: Performed By: #### L 100.0100, L500.4050, L501.9940 ####[facility] [address] [place], [address] Albumin/Globulin [Mass ratio] 0.9 {ratio} Normal 0.9-2.4 [facility] Comment on above: Performed By: #### L 100.0100, L500.4050, L501.9940 ####[facility] [address] [place], [address] ALK PHOS 190 U/L High 40-129 [facility] Comment on above: Performed By: #### L 100.0100, L500.4050, L501.9940 ####[facility] [address] [place], [address] ALT [Catalytic activity/Vol] 26 U/L Normal <=46 [facility] Comment on above: Performed By: #### L 100.0100, L500.4050, L501.9940 ####[facility] [address] [place], [address] AST [Catalytic activity/Vol] 33 U/L Normal <=37 [facility] Comment on above: Performed By: #### L 100.0100, L500.4050, L501.9940 ####[facility] [address] [place], [address] Bilirubin [Mass/Vol] 0.41 mg/dL Normal 0.00-1.30 [facility] Comment on above: Performed By: #### L 100.0100, L500.4050, L501.9940 ####[facility] [address] [place], [address] BUN/CRE 28.5 RATIO High 10-20 [facility] Comment on above: Performed By: #### L 100.0100, L500.4050, L501.9940 ####[facility] [address] [place], [address] Calcium [Mass/Vol] 9.1 mg/dL Normal 7.6-11.0 [facility] Comment on above: Performed By: #### L 100.0100, L500.4050, L501.9940 ####[facility] [address] [place], [address] Chloride [Moles/Vol] 101 mmol/L Normal 98-108 [facility] Comment on above: Performed By: #### L 100.0100, L500.4050, L501.9940 ####[facility] [address] [place], [address] CO2 [Moles/Vol] 22.9 mmol/L Normal 21.0-32.0 [facility] Comment on above: Performed By: #### L 100.0100, L500.4050, L501.9940 ####[facility] [address] [place], [address] Creatinine [Mass/Vol] 0.59 mg/dL Low 0.70-1.20 [facility] Comment on above: Performed By: #### L 100.0100, L500.4050, L501.9940 ####[facility] [address] [place], [address] ECRCL 157.12 ml/min Normal 50-250 [facility] Comment on above: Performed By: #### L 100.0100, L500.4050, L501.9940 ####[facility] [address] [place], [address] GAP 12 Normal 5-15 [facility] Comment on above: Performed By: #### L 100.0100, L500.4050, L501.9940 ####[facility] [address] [place], [address] GFR/1.73 sq M.predicted among non-blacks MDRD (S/P/Bld) [Vol rate/Area] 110 mL/min/{1.73_m2} Normal >60 [facility] Comment on above: Result Comment: mL/m in/1.73m2 CKD-EPI Creatinine Equation (2020) Performed By: #### L 100.0100, L500.4050, L501.9940 ####[facility] [address] [place], [address] Globulin (S) [Mass/Vol] 3.5 g/dL Normal 2.2-4.2 [facility] Comment on above: Performed By: #### L 100.0100, L500.4050, L501.9940 ####[facility] [address] [place], [address] Glucose [Mass/Vol] 110 mg/dL High 70-99 [facility] Comment on above: Performed By: #### L 100.0100, L500.4050, L501.9940 ####[facility] [address] [place], [address] Potassium [Moles/Vol] 4.0 mmol/L Normal 3.3-5.1 [facility] Comment on above: Performed By: #### L 100.0100, L500.4050, L501.9940 ####[facility] [address] [place], [address] Sodium [Moles/Vol] 136 mmol/L Normal 133-145 [facility] Comment on above: Performed By: #### L 100.0100, L500.4050, L501.9940 ####[facility] [address] [place], [address] T PROT 6.7 g/dL Normal 5.9-8.4 [facility] Comment on above: Performed By: #### L 100.0100, L500.4050, L501.9940 ####[facility] [address] [place], [address] Urea nitrogen [Mass/Vol] 17 mg/dL Normal 4-19 [facility] Comment on above: Performed By: #### L 100.0100, L500.4050, L501.9940 ####[facility] [address] [place], [address] Eosinophil percentageOrdered By: Jignesh Purcell on 10-19-2024 Eosinophils/100 WBC (Bld) 2.3 % 0-5 [facility] Erythrocyte distribution wid th ratioOrdered By: [facility] Purcell on 10-19-2024 Erythrocyte distribution width (RBC) [Ratio] 15.5 % High 11.6-14.6 [facility] Erythrocyte distribution wid th standard deviationOrdered By: [facility] Jazzy on 10-19-2024 Erythrocyte distribution width (RBC) [Ratio] 48.0 fl High 35.1-43.9 [facility] Glomerular filtration rate ( GFR) estimation/1.73 sq m using serum, plasma, or whole bOrdered By: [facility] Jazzy on 10-19-2024 GFR/1.73 sq M.predicted among non-blacks MDRD (S/P/Bld) [Vol rate/Area] 110 mL/min/{1.73_m2} >60 [facility] Comment on above: mL/min/1.73m2 CKD-EP I Creatinine Equation (2020) Hematocrit Auto (Bld) [Volum e fraction]Ordered By: [facility] Purcell on 10-19-2024 Hematocrit (Bld) [Volume fraction] 30.1 % Low 40-54 [facility] Hemoglobin measurementOrdere d By: Jignesh Purcell on 10-19-2024 Hemoglobin (Bld) [Mass/Vol] 9.7 g/dL Low 13.0-16.5 [facility] Immature granulocytes/100 WB C Auto (Bld)Ordered By: [facility] Purcell on 10-19-2024 Immature granulocytes/100 WBC (Bld) 0.600 % 0.0-0.9 [facility] Comment on above: IG% - Immature Granu locytes (promyelocytes, myelocytes and metamyelocytes) > 1% indicates that a LEFT SHIFT is Present. Laboratory - Chemistry and C hemistry - challengeOrdered By: Jignesh Purcell on 10-19-2024 AST [Catalytic activity/Vol] 33 U/L <38 [facility] MCV (mean corpuscular volume ) determinationOrdered By: Jignesh Purcell on 10-19-2024 MCV (RBC) [Entitic vol] 85.8 fL 80-94 [facility] Mean corpuscular hemoglobin (MCH) determinationOrdered By: [facility] Jazzy on 10-19-2024 MCH (RBC) [Entitic mass] 27.6 pg 27.0-32.0 [facility] Mean corpuscular hemoglobin concentration (MCHC) determinationOrdered By: [facility] Purcell on 10-19-2024 MCHC (RBC) [Mass/Vol] 32.2 g/dL 32-36 [facility] Mean platelet volume determi nationOrdered By: [facility] Jazzy on 10-19-2024 Platelet mean volume (Bld) [Entitic vol] 8.9 fL 6.2-12.0 [facility] Monocyte percentageOrdered B y: [facility] Jazzy on 10-19-2024 Monocytes/100 WBC (Bld) 9.6 % 0-10 [facility] Neutrophil percentageOrdered By: [facility] Jazzy on 10-19-2024 Neutrophils/100 WBC (Bld) 73.6 % High 47-70 [facility] Nucleated red blood cell per centageOrdered By: [facility] Jazzy on 10-19-2024 Nucleated RBC/100 WBC (Bld) [Ratio] 0 % 0-5 [facility] Oncology Visit Reporton 09-27 Oncology Visit Report Normal [facility] PROCALon 10-19-2024 Procalcitonin 0.15 ng/mL High 0.00-0.08 [facility] Comment on above: Result Comment: A procalcitonin (PCT) level above 2.0 ng/mL on the first day of ICU admission is associated with a high risk for progression to severe sepsis and/or septic shock. A PCT level below 0.5 ng/mL on the first day of ICU admission is associated with a low risk for progression to severe sepsis and/or septic shock. Note: Concentrations <0.5 ng/mL do not exclude an infection, on account of localized infections (without systemic signs) which can be associated with such low concentrations, or a systemic infection in its initial stages (<6 hours). Furthermore, increased procalcitonin can occur without infection. PCT concentrations between 0.5 and 2.0 ng/mL should be interpreted taking into account the patient's history. It is recommended to retest PCT within 6-24 hours if any concentrations <2 ng/mL are obtained. Performed At: [facility] [id number] Kaushik Dennis MD Ph:[phone] Performed By: #### C BC, TSH, ANEU, ADIFF, PSA, CMP, A1C, GFR, LIPID #### [facility] [address] [place], [place] [address] #### B12 #### [facility] [address] [place] [address] PSA,Total- [employer] 09-27 PSA, DIAGNOSTIC 6.18 ng/mL High 0.00-4.00 [facility] Comment on above: Result Comment: This test was performed using the [employer] tPSAmethod. Measured values of a patient??sample can varydepending on the testing procedure used. PSA valuesdetermined on patient samples by different testingprocedures cannot be used interchangeably. If there is achange in PSA assays while monitoring therapy, sequentialtesting should be performed to confirm baseline values. Performed By: #### L 100.0100, L500.4050, L501.9940 ####[facility] [address] [place], [address] Platelet countOrdered By: Cash Purcell on 10-19-2024 Platelets (Bld) [#/Vol] 351 10*3/uL 150-450 [facility] Potassium measurement (mass/ volume)Ordered By: Jignesh Purcell on 10-19-2024 Potassium (Unsp spec) [Mass/Vol] 4.0 mmol/L 3.3-5.1 [facility] RBC Auto (Bld) [#/Vol]Ordere d By: Jignesh Purcell on 10-19-2024 RBC (Bld) [#/Vol] 3.51 10*6/uL Low 4.6-6.2 [facility] Serum creatinine measurement (mass/volume)Ordered By: Jignesh Purcell on 10-19-2024 Creatinine [Mass/Vol] 0.59 mg/dL Low 0.70-1.20 [facility] Serum globulin measurementOr dered By: Jignesh uPrcell on 10-19-2024 Globulin (S) [Mass/Vol] 3.5 g/dL 2.2-4.2 [facility] Serum glucose measurement (m ass/volume)Ordered By: Jignesh Purcell on 10-19-2024 Glucose [Mass/Vol] 110 mg/dL High 70-99 [facility] Serum or plasma alanine yeung otransferase (ALT) measurementOrdered By: Jignesh Purcell on 10-19-2024 ALT [Catalytic activity/Vol] 26 U/L <47 [facility] Serum or plasma albumin delia urement (mass/volume)Ordered By: Jignesh Purcell on 10-19-2024 Albumin [Mass/Vol] 3.3 g/dL Low 3.4-4.8 [facility] Serum or plasma albumin/glob ulin mass ratioOrdered By: Jignesh Purcell on 10-19-2024 Albumin/Globulin [Mass ratio] 0.9 {ratio} 0.9-2.4 [facility] Serum or plasma alkaline jeffry sphatase measurementOrdered By: Jignesh Purcell on 10-19-2024 ALP [Catalytic activity/Vol] 190 U/L High 40-129 [facility] Serum or plasma calcium delia urement (mass/volume)Ordered By: Jignesh Purcell on 10-19-2024 Calcium [Mass/Vol] 9.1 mg/dL 7.6-11.0 [facility] Serum or plasma urea nitroge n measurement (mass/volume)Ordered By: Jignesh Purcell on 10-19-2024 Urea nitrogen [Mass/Vol] 17 mg/dL 4-19 [facility] Sodium levelOrdered By: Kristie Purcell on 10-19-2024 Sodium [Moles/Vol] 136 mmol/L 133-145 [facility] Total proteinOrdered By: Moses Purcell on 10-19-2024 Protein [Mass/Vol] 6.7 g/dL 5.9-8.4 [facility] White blood cell (WBC) count Ordered By: Jignesh Purcell on 10-19-2024 WBC (Bld) [#/Vol] 3.5 10*3/uL Low 4.4-11.0 [facility] .Auto Diffon 10-18-2024 Basophil, Absolute 0.0 10 3/mcL Normal 0.0-0.3 [facility] Comment on above: Performed By: #### M ALBR #### [address] [address] Basophils/100 WBC (Bld) 0.6 % Normal 0.0-2.5 [facility] Comment on above: Performed By: #### M ALBR #### [address] [address] Eosinophil, Absolute 0.1 10 3/mcL Normal 0.0-0.[address] [facility] Comment on above: Performed By: #### M ALBR #### [address] [address] Eosinophils/100 WBC (Bld) 1.5 % Normal 0.0-6.0 [facility] Comment on above: Performed By: #### M ALBR #### [address] [address] Lymphocyte, Absolute 0.5 10 3/mcL Low 0.9-4.[address] [facility] Comment on above: Performed By: #### M ALBR #### [address] [address] Lymphocytes/100 WBC (Bld) 11.8 % Low 20.0-40.0 [facility] Comment on above: Performed By: #### M ALBR #### [address] [address] Monocyte, Absolute 0.5 10 3/mcL Normal 0.1-1.4 [facility] Comment on above: Performed By: #### M ALBR #### [address] [address] Monocytes/100 WBC (Bld) 11.2 % Normal 2.0-13.0 [facility] Comment on above: Performed By: #### M ALBR #### [address] [address] Neutrophils/100 WBC (Bld) 74.9 % Normal 50.0-75.0 [facility] Comment on above: Performed By: #### M ALBR #### [address] [address] .GFRon 10-18-2024 Estimated Glomerular Filtration Rate 104 ml/min/1.73sqm Normal [facility] Comment on above: Result Comment: Stages of Chronic Kidney Disease (CKD) Stage Description eGFR(ml/min/1.73 sq.m.) CKD 1 Normal kidney function or >=90 normal kindney function with possible kidney damage (ex. Proteinuria) CKD 2 Kidney damage with mild loss 60-89 of kidney function CKD 3a Mild to moderate loss of kidney 45-59 function CKD 3b Moderate to severe loss of 30-44 of kindey function CKD 4 Severe loss of kidney function 15-29 CKD 5 Kidney failure <15 Note: (go live 2024) the eGFR calculation was updated to the 2020 CKD-EPI creatinine equation without a race factor to calculate the eGFR results. Performed By: #### C BC, TSH, ANEU, ADIFF, PSA, CMP, A1C, GFR, LIPID #### [address] [address] #### B12 #### [address] [address] .NEUABSon 10-18-2024 Neutrophil, Absolute 3.3 10 3/mcL Normal 2.3-8.[address] [facility] Comment on above: Performed By: #### M ALBR #### [address] [address] APTTon 10-18-2024 aPTT Coag (Bld) [Time] 51.7 s High 25.0-35.[address] [facility] Comment on above: Result Comment: For Heparin anticoagulation therapy, the recommended therapeutic range is: 45.4-75.9 seconds. Patients on heparin therapy may have an extreme result. Performed By: #### M ALBR #### [address] [address] CBCon 10-18-2024 Erythrocyte distribution width (RBC) [Ratio] 16.8 % High 11.5-15.5 [facility] Comment on above: Order Comment: STAT Performed By: #### M ALBR #### [address] [address] Hematocrit (Bld) [Volume fraction] 32.1 % Low 40.0-52.0 [facility] Comment on above: Order Comment: STAT Performed By: #### M ALBR #### [place] [id number] Hgb 10.6 G/dL Low 13.0-17.5 [facility] Comment on above: Order Comment: STAT Performed By: #### M ALBR #### [address] [address] MCH (RBC) [Entitic mass] 27.6 pg Normal 27.0-33.0 [facility] Comment on above: Order Comment: STAT Performed By: #### M ALBR #### [address] [address] MCHC 33.0 G/dL Normal 32.0-36.0 [facility] Comment on above: Order Comment: STAT Performed By: #### M ALBR #### [address] [address] MCV (RBC) [Entitic vol] 83.4 fL Normal 81.0-100.0 [facility] Comment on above: Order Comment: STAT Performed By: #### M ALBR #### [address] [address] Platelet 362 10 3/mcL Normal 150-450 [facility] Comment on above: Order Comment: STAT Performed By: #### M ALBR #### [address] [address] Platelet mean volume (Bld) [Entitic vol] 6.6 fL Normal 6.4-10.5 [facility] Comment on above: Order Comment: STAT Performed By: #### M ALBR #### [address] [address] RBC 3.85 10 6/mcL Low 4.50-6.00 [facility] Comment on above: Order Comment: STAT Performed By: #### M ALBR #### [address] [address] WBC 4.4 10 3/mcL Low 4.5-10.8 [facility] Comment on above: Order Comment: STAT Performed By: #### M ALBR #### [address] [address] CMPon 10-18-2024 Albumin Level 2.3 G/dL Low 3.4-4.8 [facility] Comment on above: Performed By: #### C BC, TSH, ANEU, ADIFF, PSA, CMP, A1C, GFR, LIPID #### [place] [address] #### B12 #### [place] [address] Albumin/Globulin [Mass ratio] 0.5 {ratio} Low 1.1-2.5 [facility] Comment on above: Performed By: #### C BC, TSH, ANEU, ADIFF, PSA, CMP, A1C, GFR, LIPID #### [place] [address] #### B12 #### [address] [address] ALP [Catalytic activity/Vol] 198 U/L High 40-135 [facility] Comment on above: Performed By: #### C BC, TSH, ANEU, ADIFF, PSA, CMP, A1C, GFR, LIPID #### [place] [address] #### B12 #### [address] [address] ALT [Catalytic activity/Vol] 23 U/L Normal 16-63 [facility] Comment on above: Performed By: #### C BC, TSH, ANEU, ADIFF, PSA, CMP, A1C, GFR, LIPID #### [place] [address] #### B12 #### [address] [address] AST [Catalytic activity/Vol] 20 U/L Normal 10-40 [facility] Comment on above: Performed By: #### C BC, TSH, ANEU, ADIFF, PSA, CMP, A1C, GFR, LIPID #### [place] [address] #### B12 #### [address] [address] Bili Total 0.7 mg/dL Normal 0.2-1.0 [facility] Comment on above: Result Comment: Use of this assay is not recommended for patients undergoing treatment with eltrombopag due to the potential for falsely elevated results. Performed By: #### C BC, TSH, ANEU, ADIFF, PSA, CMP, A1C, GFR, LIPID #### [place] [address] #### B12 #### [address] [address] BUN/Creatinine Ratio 26 ratio Normal 7-27 [facility] Comment on above: Performed By: #### C BC, TSH, ANEU, ADIFF, PSA, CMP, A1C, GFR, LIPID #### [place] [address] #### B12 #### [address] [address] Calcium [Mass/Vol] 9.1 mg/dL Normal 8.4-10.2 [facility] Comment on above: Performed By: #### C BC, TSH, ANEU, ADIFF, PSA, CMP, A1C, GFR, LIPID #### [place] [address] #### B12 #### [address] [address] Chloride [Moles/Vol] 100 mmol/L Normal 98-107 [facility] Comment on above: Performed By: #### C BC, TSH, ANEU, ADIFF, PSA, CMP, A1C, GFR, LIPID #### [address] [address] #### B12 #### [address] [address] CO2 [Moles/Vol] 28 mmol/L Normal 23-31 [facility] Comment on above: Performed By: #### C BC, TSH, ANEU, ADIFF, PSA, CMP, A1C, GFR, LIPID #### [address] [address] #### B12 #### [place] [address] Creatinine [Mass/Vol] 0.72 mg/dL Normal 0.67-1.17 [facility] Comment on above: Performed By: #### C BC, TSH, ANEU, ADIFF, PSA, CMP, A1C, GFR, LIPID #### [place] [address] #### B12 #### [place] [address] Electrolyte Balance 7.0 mEq/L Normal 4.0-15.0 [facility] Comment on above: Performed By: #### C BC, TSH, ANEU, ADIFF, PSA, CMP, A1C, GFR, LIPID #### [address] [address] #### B12 #### [place] [address] Globulin 5.0 G/dL High 2.7-4.4 [facility] Comment on above: Performed By: #### C BC, TSH, ANEU, ADIFF, PSA, CMP, A1C, GFR, LIPID #### [address] [address] #### B12 #### [address] [address] Glucose [Mass/Vol] 106 mg/dL Normal 80-115 [facility] Comment on above: Performed By: #### C BC, TSH, ANEU, ADIFF, PSA, CMP, A1C, GFR, LIPID #### [address] [address] #### B12 #### [address] [address] Potassium [Moles/Vol] 3.7 mmol/L Normal 3.5-5.1 [facility] Comment on above: Performed By: #### C BC, TSH, ANEU, ADIFF, PSA, CMP, A1C, GFR, LIPID #### [place] [address] #### B12 #### [address] [address] Sodium [Moles/Vol] 135 mmol/L Low 136-145 [facility] Comment on above: Performed By: #### C BC, TSH, ANEU, ADIFF, PSA, CMP, A1C, GFR, LIPID #### [place] [address] #### B12 #### [address] [address] Total Protein 7.3 G/dL Normal 6.4-8.2 [facility] Comment on above: Performed By: #### C BC, TSH, ANEU, ADIFF, PSA, CMP, A1C, GFR, LIPID #### [place] [address] #### B12 #### [address] [address] Urea nitrogen [Mass/Vol] 19 mg/dL High 7-18 [facility] Comment on above: Performed By: #### C BC, TSH, ANEU, ADIFF, PSA, CMP, A1C, GFR, LIPID #### [place] [address] #### B12 #### [address] [address] CRPon 10-18-2024 C-Reactive Protein 19.8 mg/dL High 0.0-0.3 [facility] Comment on above: Performed By: #### C BC, TSH, ANEU, ADIFF, PSA, CMP, A1C, GFR, LIPID #### [place] [id number] [place], [place] [address] #### B12 #### [address] [address] [address] ANGIOGRAPHY CHEST W/CONTR Lacy 10-18-2024 CT ANGIOGRAPHY CHEST W/CONTRAST ORIGINAL EXAMINATION: CTA OF THE CHEST10/18/2024 9:13 pm CTA CHEST WITH CONTRAST TECHNIQUE: CTA of the chest was performed after the administration of intravenous contrast. Multiplanar reformatted images are provided for review. MIP images are provided for review. Automated exposure control, iterative reconstruction, and/or weight based adjustment of the mA/kV was utilized to reduce the radiation dose to as low as reasonably achievable. CTA of the thorax was acquired in the axial plane. Coronal and sagittal reformatted images were reviewed. Three dimensional reconstructions were created on a separate workstation. This exam was performed according to our departmental dose optimization program, and includes the following measures where applicable: automated exposure control, adjustment of the mAs and/or kVp according to patient size and/or exam, and an iterative reconstruction algorithm. COMPARISON: None HISTORY: ORDERING SYSTEM PROVIDED HISTORY: Reason for Exam: Pulmonary embolism (PE) suspected, high prob FINDINGS: Pulmonary Arteries:There is mild cardiac and respiratory motion artifact. Main pulmonary artery is nondilated. Contrast bolus is adequate to exclude pulmonary arterial embolus to the segmental level. No evidence of right heart strain. Mediastinum: There is a left chest Port-A-Cath with tip at the cavoatrial junction. Thoracic aorta does not appear dilated accounting for cardiac motion artifact. There are coronary artery calcifications. There is mild atherosclerosis of. Heart is normal in size. No pericardial effusion. No pathologically enlarged mediastinal or hilar lymph nodes by size criteria. Lungs: Central tracheobronchial tree is patent. Lung volumes are low. There is a small left pleural effusion. No pneumothorax. There are streaky bibasilar lower lobe consolidations. The right middle lobe is completely collapsed Upper Abdomen:Limited evaluation of the partially visualized upper abdomen demonstrates a percutaneous cholecystostomy tube within the gallbladder. No upper abdominal pneumoperitoneum. Finding on comparison radiograph is likely artifactual. There is a 2.3 cm right hepatic lobe fluid density lesion, likely a cyst. There are a few subcentimeter hypodensities in the liver, too small further characterize also represent cysts. Scattered colonic diverticulosis noted. Bones/Soft Tissues: There are multiple sclerotic lesions in the thoracic and partially visualized lumbar spine as well as the left clavicle and several ribs. Unremarkable soft tissues. IMPRESSION: 1. No evidence of pulmonary embolism. 2. Small left pleural effusion. 3. Streaky bibasilar lower lobe consolidations, suspicious for pneumonia or atelectasis. 4. Complete collapse of the right middle lobe. 5. Multiple sclerotic bone lesions, suspicious for metastatic disease. 6. Percutaneous cholecystostomy tube within the gallbladder. No upper abdominal pneumoperitoneum. Finding on comparison radiograph is likely artifactual. Interpreted by: Rogelio Monroy Preliminary Report By: Rogelio Monroy Electronically signed By Rogelio Monroy Dictated Date: 10/18/2024 9:45:25 PM Prelim Date: 10/18/2024 9:54:57 PM Sign Date: 10/18/2024 9:54:57 PM Ordering Provider: MAHENDRA ARRIAGA Normal [facility] DIMERon 10-18-2024 D-Dimer 2090 ng/mL D-DU High 0-230 [facility] Comment on above: Order Comment: STAT Result Comment: Resu lts reported in D-DU ng/mL. Positive for D-dimer. A positive D-Dimer may occur in the following: DVT, PE, DIC, Trauma, Cancer, Sepsis, , Rheumatoid arthritis, Myocardial infarction and Cirrhosis. The presence of Rheumatoid Factor and HAMA (human mouse antibody) produces an overestimation of test results. The result of the D-Dimer test should be evaluated in the context of all the clinical and laboratory data available. In those instances where the laboratory result does not agree with the clinical evaluation, additional tests should be performed accordingly. If the D-Dimer result is used to exclude DVT or PE, the recommended cutoff value is less than 230 ng/mL. The D-Dimer result should not be used alone to rule in DVT/PE, but should be used in conjunction with a clinical pretest probability (PTP)assessment model to exclude venous thromboembolism (VTE) in patients suspected of deep venous thrombosis (DVT) and pulmonary embolism (PE). Performed By: #### C BC, TSH, ANEU, ADIFF, PSA, CMP, A1C, GFR, LIPID #### [address] [address] #### B12 #### [address] [address] ESRon 10-18-2024 Erythrocyte Sed Rate 22 mm/hr High 0-20 [facility] Comment on above: Performed By: #### C BC, TSH, ANEU, ADIFF, PSA, CMP, A1C, GFR, LIPID #### [address] [address] #### B12 #### [address] [address] LABORATORYOrdered By: SYSTEM SYSTEM on 10-18-2024 aPTT Coag (PPP) [Time] 51.7 s High 25.0 - 35.0 seconds AO [facility] Comment on above: Interpretive Data: F or Heparin anticoagulation therapy, the recommended therapeutic range is: 45.4-75.9 seconds. Patients on heparin therapy may have an extreme result. INR Coag (PPP) [Relative time] 1.6 {INR} Invalid Interpretation Code AO [facility] Comment on above: Interpretive Data: Lane chandra [employer] [place] [employer] (CHEST, 1992, 102:312S-25S) recommended therapeutic range for oral anticoagulant therapy is: LOW RISK: Prophylaxis of venous thrombosis INR: 2.0-3.0 Treatment of pulmonary embolism 2.0-3.0 Prevention of systemic embolism 2.0-3.0 HIGH RISK: Mechanical prosthetic valves 2.5-3.5 Natriuretic peptide.B prohormone N-Terminal [Mass/Vol] 294 pg/mL High 0 - 125 pg/mL AO ADM SS Comment on above: Interpretive Data: N T-proBNP results of less than 300 pg/mL effectively rules out acute congestive heart failure with 99% negative predictive value. PT Coag (PPP) [Time] 18.0 s High 9.0 - 1 4.4 seconds AO [facility] Troponin I.cardiac DL <= 0.01 ng/mL [Mass/Vol] 7 ng/L Normal 0 - 76 ng/L AO ADM SS Comment on above: Interpretive Data: H igh Sensitive Troponin I Reference Ranges: Female: 0-51 ng/L Male: 0-76 ng/L Testing performed on [employer] using a homogeneous sandwich chemiluminescent immunoassay based on [employer] technology. Albumin BCP dye [Mass/Vol] 2.3 G/dL Low 3.4 - 4.8 G/dL AO ADM SS Albumin/Globulin [Mass ratio] 0.5 {ratio} Low 1.1 - 2.5 ratio AO ADM SS ALP [Catalytic activity/Vol] 198 U/L High 40 - 135 U/L AO ADM SS ALT With P-5'-P [Catalytic activity/Vol] 23 U/L Normal 16 - 63 U/L AO ADM SS AST With P-5'-P [Catalytic activity/Vol] 20 U/L Normal 10 - 40 U/L AO ADM SS Basophils (Bld) [#/Vol] 0.0 103/mcL Normal 0.0 - 0.3 10^3/mcL AO Workflow SS Basophils/100 WBC (Bld) 0.6 % Normal 0.0 - 2.5 % AO Workflow SS Bilirubin [Mass/Vol] 0.7 mg/dL Normal 0.2 - 1 .0 mg/dL AO ADM SS Comment on above: Interpretive Data: U se of this assay is not recommended for patients undergoing treatment with eltrombopag due to the potential for falsely elevated results. Calcium [Mass/Vol] 9.1 mg/dL Normal 8.4 - 10. 2 mg/dL AO ADM SS Chloride [Moles/Vol] 100 mmol/L Normal 98 - 10 7 mmol/L AO ADM SS CO2 [Moles/Vol] 28 mmol/L Normal 23 - 31 mmol/L AO ADM SS Creatinine [Mass/Vol] 0.72 mg/dL Normal 0.67 - 1.17 mg/dL AO ADM SS CRP [Mass/Vol] 19.8 mg/dL High 0.0 - 0.3 mg/dL AO ADM SS Electrolyte Balance 7.0 mEq/L Normal 4.0 - 15 .0 mEq/L AO ADM SS Eosinophil, Absolute 0.1 103/mcL Normal 0.0 - 0 .7 10^3/mcL AO Workflow SS Eosinophils/100 WBC (Bld) 1.5 % Normal 0.0 - 6.0 % AO Workflow SS Erythrocyte distribution width (RBC) [Ratio] 16.8 % High 11.5 - 15.5 % AO Workflow SS Estimated Glomerular Filtration Rate 104 ml/min/1.73sqm Invalid Interpretation Code AO Chemistry S Comment on above: Interpretive Data: Stages of Chronic Kidney Disease (CKD) Stage Description eGFR(ml/min/1.73 sq.m.) CKD 1 Normal kidney function or >=90 normal kindney function with possible kidney damage (ex. Proteinuria) CKD 2 Kidney damage with mild loss 60-89 of kidney function CKD 3a Mild to moderate loss of kidney 45-59 function CKD 3b Moderate to severe loss of 30-44 of kindey function CKD 4 Severe loss of kidney function 15-29 CKD 5 Kidney failure <15 Note: (go live 2024) the eGFR calculation was updated to the 2020 CKD-EPI creatinine equation without a race factor to calculate the eGFR results. Fibrin D-dimer DDU (PPP) [Mass/Vol] 2090 ng/mL D-DU High 0 - 230 ng/mL D-DU AO [facility] Comment on above: Result Comment: Resu lts reported in D-DU ng/mL. Positive for D-dimer. A positive D-Dimer may occur in the following: DVT, PE, DIC, Trauma, Cancer, Sepsis, , Rheumatoid arthritis, Myocardial infarction and Cirrhosis. The presence of Rheumatoid Factor and HAMA (human mouse antibody) produces an overestimation of test results. Interpretive Data: T he result of the D-Dimer test should be evaluated in the context of all the clinical and laboratory data available. In those instances where the laboratory result does not agree with the clinical evaluation, additional tests should be performed accordingly. If the D-Dimer result is used to exclude DVT or PE, the recommended cutoff value is less than 230 ng/mL. The D-Dimer result should not be used alone to rule in DVT/PE, but should be used in conjunction with a clinical pretest probability (PTP)assessment model to exclude venous thromboembolism (VTE) in patients suspected of deep venous thrombosis (DVT) and pulmonary embolism (PE). Globulin 5.0 G/dL High 2.7 - 4.4 G/dL AO ADM SS Glucose [Mass/Vol] 106 mg/dL Normal 80 - 115 mg/dL AO ADM SS Hematocrit (Bld) [Volume fraction] 32.1 % Low 40.0 - 52.0 % AO Workflow SS Hemoglobin (Bld) [Mass/Vol] 10.6 G/dL Low 13.0 - 17.5 G/dL AO Workflow SS Lymphocytes (Bld) [#/Vol] 0.5 103/mcL Low 0.9 - 4.3 10^3/mcL AO Workflow SS Lymphocytes/100 WBC (Bld) 11.8 % Low 20.0 - 40.0 % AO Workflow SS MCH (RBC) [Entitic mass] 27.6 pg Normal 27.0 - 33.0 pg AO Workflow SS MCHC 33.0 G/dL Normal 32.0 - 36.0 G/dL AO Workflow SS MCV (RBC) [Entitic vol] 83.4 fL Normal 81.0 - 100.0 fL AO Workflow SS Monocytes (Bld) [#/Vol] 0.5 103/mcL Normal 0.1 - 1.4 10^3/mcL AO Workflow SS Monocytes/100 WBC (Bld) 11.2 % Normal 2.0 - 13.0 % AO Workflow SS Natriuretic peptide.B prohormone N-Terminal [Mass/Vol] 353 pg/mL High 0 - 125 pg/mL AO ADM SS Comment on above: Interpretive Data: N T-proBNP results of less than 300 pg/mL effectively rules out acute congestive heart failure with 99% negative predictive value. Neutrophils (Bld) [#/Vol] 3.3 103/mcL Normal 2.3 - 8.1 10^3/mcL AO Workflow SS Neutrophils/100 WBC (Bld) 74.9 % Normal 50.0 - 75.0 % AO Workflow SS Platelet mean volume (Bld) [Entitic vol] 6.6 fL Normal 6.4 - 10.5 fL AO Workflow SS Platelets (Bld) [#/Vol] 362 103/mcL Normal 150 - 450 10^3/mcL AO Workflow SS Potassium [Moles/Vol] 3.7 mmol/L Normal 3.5 - 5.1 mmol/L AO ADM SS Protein [Mass/Vol] 7.3 G/dL Normal 6.4 - 8.2 G/dL AO ADM SS RBC (Bld) [#/Vol] 3.85 106/mcL Low 4.50 - 6.0 0 10^6/mcL AO Workflow SS Sodium [Moles/Vol] 135 mmol/L Low 136 - 145 mmol/L AO ADM SS Urea nitrogen [Mass/Vol] 19 mg/dL High 7 - 18 mg/dL AO ADM SS Urea nitrogen/Creatinine [Mass ratio] 26 ratio Normal 7 - 27 ratio AO ADM SS WBC (Bld) [#/Vol] 4.4 103/mcL Low 4.5 - 10.8 10^3/mcL AO Workflow SS LABORATORYOrdered By: Berna Isbell on 10-18-2024 ESR Photometric method (Bld) [Velocity] 22 mm/hr High 0 - 20 mm/hr AO Man Heme SS PBNPon 10-18-2024 Natriuretic peptide B (Bld) [Mass/Vol] 294 pg/mL High 0-125 [facility] Comment on above: Result Comment: NT-p roBNP results of less than 300 pg/mL effectively rules out acute congestive heart failure with 99% negative predictive value. Performed By: #### M ALBR #### [address] [address] Natriuretic peptide B (Bld) [Mass/Vol] 353 pg/mL High [address] Comment on above: Result Comment: NT-p roBNP results of less than 300 pg/mL effectively rules out acute congestive heart failure with 99% negative predictive value. Performed By: #### C BC, TSH, ANEU, ADIFF, PSA, CMP, A1C, GFR, LIPID #### [address] [address] #### B12 #### [place] [address] PROon 10-18-2024 PT Coag (PPP) [Time] 18.0 s High 9.0-14.4 [facility] Comment on above: Performed By: #### M ALBR #### [address] [address] PT International Ratio 1.[address] [facility] Comment on above: Result Comment: [employer] [place] [employer] (CHEST, 1992, 102:312S-25S) recommended therapeutic range for oral anticoagulant therapy is: LOW RISK: Prophylaxis of venous thrombosis INR: 2.0-3.0 Treatment of pulmonary embolism 2.0-3.0 Prevention of systemic embolism 2.0-3.0 HIGH RISK: Mechanical prosthetic valves 2.5-3.5 Performed By: #### M ALBR #### [address] [address] TROPHSon 06-23-2025 High Sensitivity Troponin I 7 ng/L Normal 0-76 [facility] Comment on above: Result Comment: High Sensitive Troponin I Reference Ranges: Female: 0-51 ng/L Male: 0-76 ng/L Testing performed on [employer] using a homogeneous sandwich chemiluminescent immunoassay based on [employer] technology. Performed By: #### M ALBR #### [facility] [address] [place], [place] [address] XR CHEST 2 VIEWSon XR CHEST 2 VIEWS ORIGINAL EXAMINATION: TWO XRAY VIEWS OF THE CHEST10/18/2024 5:13 pm CHEST AP/PA and LATERAL COMPARISON: Chest radiograph 07 31 2013 HISTORY: ORDERING SYSTEM PROVIDED HISTORY: Reason for Exam: short of breath, rales R posterior [id number]^ FINDINGS: Lines/Tubes: There is a left chest Port-A-Cath tip which projects over the right atrium. A pigtail catheter projects over the right upper quadrant. Lungs: Low lung volumes crowding bronchovascular markings. There are right greater than left bibasilar opacities. No evidence of pneumothorax. Blunting of both costophrenic angles suggestive of pleural effusions. Heart/Mediastinum: Within normal limits of size. Bones/Soft Tissues: There is pneumoperitoneum. No evidence of acute fracture. IMPRESSION: 1. Pneumoperitoneum with a right upper quadrant surgical drain. Recommend clinical correlation. 2. Right greater than left basilar opacities, concerning for pneumonia or aspiration given clinical history. Recommend follow-up to resolution. 3. Small bilateral pleural effusions. Interpreted by: Rogelio Monroy Preliminary Report By: Rogelio Monroy Electronically signed By Rogelio Monroy Dictated Date: 10/18/2024 6:27:42 PM Prelim Date: 10/18/2024 6:30:38 PM Sign Date: 10/18/2024 6:30:38 PM Ordering Provider: CARLITOS BREWER Normal [facility] Culture, Blood (WB)on 2024 CUB No growth in 5 days. Normal [facility] Comment on above: Performed By: #### M 200.1000 ####[facility] [address] [place], [address] MR/PAT.ANEon 10-15-2024 MR/YUN Normal [facility] Wound Cultureon 10-15-2024 WC Normal [facility] Comment on above: Performed By: #### M 100.3000, M100.4001, M100.2000 ####[facility] [address] [place], [place], [id number] Absolute lymphocyte countOrd ered By: Andrews Watkins on 10-13-2024 Lymphocytes Auto (Unsp spec) [#/Vol] 0.39 10*3/uL Low 0.83-4.51 [facility] Absolute neutrophil countOrd ered By: Andrews Watkins on 10-13-2024 Neutrophils (Bld) [#/Vol] 2.9 10*3/uL 2.0-7.7 [facility] Anion gap in Serum or Plasma Ordered By: Andrews Watkins on 10-13-2024 Anion gap [Moles/Vol] 9 mmol/L 5-15 [facility] Automated blood erythrocyte countOrdered By: Andrews Watkins on 10-13-2024 RBC (Bld) [#/Vol] 3.17 10*6/uL Low 4.6-6.2 [facility] Comment on above: Performed By: #### L 100.0100, L500.2500 ####[facility] [address] [place], [place], [id number] Automated blood hematocrit ( percentage)Ordered By: Andrews Watkins on 10-13-2024 Hematocrit (Bld) [Volume fraction] 27.0 % Low 40-54 [facility] Comment on above: Performed By: #### L 100.0100, L500.2500 ####[facility] [address] [place], [address] Automated lymphocyte count a s percentage of total leukocytesOrdered By: Andrews Watkins on 10-13-2024 Lymphocytes/100 WBC Auto (Unsp spec) 10.6 % Low 19-41 [facility] BUN/creatinine ratioOrdered By: Andrews Watkins on 10-13-2024 Urea nitrogen/Creatinine [Mass ratio] 18.8 mg/mg 10-20 [facility] Basic Metabolic Profile (BMP )on 10-13-2024 BUN/CRE 18.8 RATIO Normal - [facility] Comment on above: Performed By: #### L 100.0100, L500.2500 ####[facility] [address] [place], [address] Calcium [Mass/Vol] 8.2 mg/dL Normal 7.6-11.0 [facility] Comment on above: Performed By: #### L 100.0100, L500.2500 ####[facility] [address] [place], [address] Chloride [Moles/Vol] 104 mmol/L Normal 98-108 [facility] Comment on above: Performed By: #### L 100.0100, L500.2500 ####[facility] [address] [place], [address] CO2 [Moles/Vol] 22.2 mmol/L Normal 21.0-32.0 [facility] Comment on above: Performed By: #### L 100.0100, L500.2500 ####[facility] [address] [place], [address] Creatinine [Mass/Vol] 0.65 mg/dL Low 0.70-1.20 [facility] Comment on above: Performed By: #### L 100.0100, L500.2500 ####[facility] [address] [place], [address] ECRCL 143.64 ml/min Normal 50-250 [facility] Comment on above: Performed By: #### L 100.0100, L500.2500 ####[facility] [address] [place], [address] GAP 9 Normal 5-15 [facility] Comment on above: Performed By: #### L 100.0100, L500.2500 ####[facility] [address] [place], [address] GFR/1.73 sq M.predicted among non-blacks MDRD (S/P/Bld) [Vol rate/Area] 107 mL/min/{1.73_m2} Normal >60 [facility] Comment on above: Result Comment: mL/m in/1.73m2 CKD-EPI Creatinine Equation (2020) Performed By: #### L 100.0100, L500.2500 ####[facility] [address] [place], [address] Glucose [Mass/Vol] 90 mg/dL Normal 70-99 [facility] Comment on above: Performed By: #### L 100.0100, L500.2500 ####[facility] [address] [place], [address] Potassium [Moles/Vol] 3.8 mmol/L Normal 3.3-5.1 [facility] Comment on above: Performed By: #### L 100.0100, L500.2500 ####[facility] [address] [place], [address] Sodium [Moles/Vol] 135 mmol/L Normal 133-145 [facility] Comment on above: Performed By: #### L 100.0100, L500.2500 ####[facility] [address] [place], [address] Urea nitrogen [Mass/Vol] 12 mg/dL Normal 4-19 [facility] Comment on above: Performed By: #### L 100.0100, L500.2500 ####[facility] [address] [place], [address] Basophil percentageOrdered B y: Andrews Watkins on 10-13-2024 Basophils/100 WBC (Bld) 0.5 % Normal 0-1 [facility] Comment on above: Performed By: #### L 100.0100, L500.2500 ####[facility] [address] [place], [address] CBC W/Diff, Automatedon 06-1 Absolute Lymph 0.39 X10 3/uL Low 0.83-4.51 [facility] Comment on above: Performed By: #### L 100.0100, L500.2500 ####[facility] [address] [place], [address] Absolute Neut 2.9 X10 3/uL Normal 2.0-7.7 [facility] Comment on above: Performed By: #### L 100.0100, L500.2500 ####[facility] [address] [place], [address] IG% 0.500 Normal 0.0-0.9 [facility] Comment on above: Result Comment: IG% - Immature Granulocytes (promyelocytes, myelocytes andmetamyelocytes) > 1% indicates that a LEFT SHIFT is Present. Performed By: #### L 100.0100, L500.2500 ####[facility] [address] [place], [address] Lymphocytes/100 WBC (Bld) 10.6 % Low 19-41 [facility] Comment on above: Performed By: #### L 100.0100, L500.2500 ####[facility] [address] [place], [address] Nucleated RBC (Bld) [#/Vol] 0 10*3/uL Normal 0-5 [facility] Comment on above: Performed By: #### L 100.0100, L500.2500 ####[facility] [address] [place], [address] RDW SD 46.2 fl High 35.1-43.9 [facility] Comment on above: Performed By: #### L 100.0100, L500.2500 ####[facility] [address] [place], [address] Carbon dioxide, total [Moles /volume] in Central venous bloodOrdered By: Andrews Watkins on 10-13-2024 CO2 [Moles/Vol] 22.2 mmol/L 21.0-32.0 [facility] Chloride assayOrdered By: Eugenia Watkins on 10-13-2024 Chloride [Moles/Vol] 104 mmol/L 98-108 [facility] Discharge Instructionon 09-26 Discharge Instruction Normal [facility] Electrocardiogram reportOrde red By: Juan M Diaz on 10-13-2024 EKG study [facility] [address] [place] [address] 12 Lead EKG 10/12/24 0459 MR#: [id number] Acct: [id number] Name: DANNIE EDMONDSON Rep #:[id number] : 1960 63 From: Juan M Diaz MD Attending Dr: Dr. Andrews Watknis MD Status: ADM IN Ordering Dr: Andrews Watkins MD Da te: 10/12/24 Location: MS3 Sex: M C Admitted: 10/11/24 Test Reason : AM EKG Blood Pressure : */* mmHG Vent. Rate : 56 BPM Atrial Rate : 56 BPM P-R Int : 196 ms QRS Dur : 128 ms QT Int : 502 ms P-R-T Axes : 37 -12 25 degrees QTcB Int : 484 ms Sinus bradycardia Non-specific intra-ventricular conduction block Abnormal ECG When compared with ECG of 11-Oct-2024 07:58, MANUAL COMPARISON REQUIRED DATA IS UNCONFIRMED Confirmed by JUAN M DIAZ MD ([id number]), loan expeditor KRYSTINA HOWELL ([id number]) on 10/13/2024 7:27:09 AM Referred By: SALINA Confirmed By: JUAN M DIAZ MD 10/13/24 0727 Date _ Juan M Diaz MD CC: Dr. Andrews Watkins MD; Dr. Carlitos Brewer, DO ~ Signed [facility] Work Phone: [phone] Eosinophil percentageOrdered By: Andrews Watkins on 10-13-2024 Eosinophils/100 WBC (Bld) 2.5 % Normal 0-5 [facility] Comment on above: Performed By: #### L 100.0100, L500.2500 ####[facility] [address] [place], [address] Erythrocyte distribution wid th ratioOrdered By: Andrews Watkins on 10-13-2024 Erythrocyte distribution width (RBC) [Ratio] 14.8 % High 11.6-14.6 [facility] Comment on above: Performed By: #### L 100.0100, L500.2500 ####[facility] [address] [place], [place], [address] Erythrocyte distribution wid th standard deviationOrdered By: Andrews Watkins on 10-13-2024 Erythrocyte distribution width (RBC) [Ratio] 46.2 fl High 35.1-43.9 [facility] Glomerular filtration rate ( GFR) estimation/1.73 sq m using serum, plasma, or whole bOrdered By: Andrews Watkins on 10-13-2024 GFR/1.73 sq M.predicted among non-blacks MDRD (S/P/Bld) [Vol rate/Area] 107 mL/min/{1.73_m2} >60 [facility] Comment on above: mL/min/1.73m2 CKD-EP I Creatinine Equation (2020) Gram Stainon 10-13-2024 GS Gallbladder Aspirate Gram Stain 4+ White Blood Cells 3+ Gram positive cocci Normal [facility] Comment on above: Performed By: #### M 100.3000, M100.4001, M100.2000 ####[facility] [address] [place], [address] Hemoglobin measurementOrdere d By: Andrews Watkins on 10-13-2024 Hemoglobin (Bld) [Mass/Vol] 8.8 g/dL Low 13.0-16.5 [facility] Comment on above: Performed By: #### L 100.0100, L500.2500 ####[facility] [address] [place], [address] Immature granulocytes/100 WB C Auto (Bld)Ordered By: Andrews Watkins on 10-13-2024 Immature granulocytes/100 WBC (Bld) 0.500 % 0.0-0.9 [facility] Comment on above: IG% - Immature Granu locytes (promyelocytes, myelocytes and metamyelocytes) > 1% indicates that a LEFT SHIFT is Present. MCV (mean corpuscular volume ) determinationOrdered By: Andrews Watkins on 10-13-2024 MCV (RBC) [Entitic vol] 85.2 fL Normal 80-94 [facility] Comment on above: Performed By: #### L 100.0100, L500.2500 ####[facility] [address] [place], [address] Mean corpuscular hemoglobin (MCH) determinationOrdered By: Andrews Watkins on 10-13-2024 MCH (RBC) [Entitic mass] 27.8 pg Normal 27.0-32.0 [facility] Comment on above: Performed By: #### L 100.0100, L500.2500 ####[facility] [address] [place], [address] Mean corpuscular hemoglobin concentration (MCHC) determinationOrdered By: Andrews Watkins on 10-13-2024 MCHC (RBC) [Mass/Vol] 32.6 g/dL Normal 32-36 [facility] Comment on above: Performed By: #### L 100.0100, L500.2500 ####[facility] [address] [place], [address] Mean platelet volume determi nationOrdered By: Andrews Watkins on 10-13-2024 Platelet mean volume (Bld) [Entitic vol] 9.0 fL Normal 6.2-12.0 [facility] Comment on above: Performed By: #### L 100.0100, L500.2500 ####[facility] [address] [place], [address] Monocyte percentageOrdered B y: Andrews Watkins on 10-13-2024 Monocytes/100 WBC (Bld) 7.1 % Normal 0-10 [facility] Comment on above: Performed By: #### L 100.0100, L500.2500 ####[facility] [address] [place], [address] Neutrophil percentageOrdered By: Andrews Watkins on 10-13-2024 Neutrophils/100 WBC (Bld) 78.8 % High 47-70 [facility] Comment on above: Performed By: #### L 100.0100, L500.2500 ####[facility] [address] [place], [address] Nucleated red blood cell per centageOrdered By: Andrews Watkins on 10-13-2024 Nucleated RBC/100 WBC (Bld) [Ratio] 0 % 0-5 [facility] Platelet countOrdered By: Eugenia Watkins on 10-13-2024 Platelets (Bld) [#/Vol] 264 10*3/uL Normal 150-450 [facility] Comment on above: Performed By: #### L 100.0100, L500.2500 ####[facility] [address] [place], [address] Potassium measurement (mass/ volume)Ordered By: Andrews Watkins on 10-13-2024 Potassium (Unsp spec) [Mass/Vol] 3.8 mmol/L 3.3-5.1 [facility] Serum creatinine measurement (mass/volume)Ordered By: Andrews Watkins on 10-13-2024 Creatinine [Mass/Vol] 0.65 mg/dL Low 0.70-1.20 [facility] Serum glucose measurement (m ass/volume)Ordered By: Andrews Watkins on 10-13-2024 Glucose [Mass/Vol] 90 mg/dL 70-99 [facility] Serum or plasma calcium delia urement (mass/volume)Ordered By: Andrews Watkins on 10-13-2024 Calcium [Mass/Vol] 8.2 mg/dL 7.6-11.0 [facility] Serum or plasma urea nitroge n measurement (mass/volume)Ordered By: Andrews Watkins on 10-13-2024 Urea nitrogen [Mass/Vol] 12 mg/dL 4-19 [facility] Sodium levelOrdered By: Brijesh Watkins on 10-13-2024 Sodium [Moles/Vol] 135 mmol/L 133-145 [facility] White blood cell (WBC) count Ordered By: Andrews Watkins on 10-13-2024 WBC (Bld) [#/Vol] 3.7 10*3/uL Low 4.4-11.0 [facility] Comment on above: Performed By: #### L 100.0100, L500.2500 ####[facility] [address] [place], [place], [address] 12 Lead EKGon 10-12-2024 12 Lead EKG Normal [facility] Activated partial thrombopla stin time (aPTT) in platelet poor plasma by coagulation aOrdered By: Kitty Pruett on 10-12-2024 aPTT Coag (PPP) [Time] 49.3 s High 24.1-36.2 [facility] Anaerobic cultureOrdered By: Kitty Pruett on 10-12-2024 Bacteria identified Anaer cx Nom (Unsp spec) Prevotella dari Abnormal [facility] Basic Metabolic Profile (BMP )on 10-12-2024 BUN/CRE 22.5 RATIO High 10-20 [facility] Comment on above: Performed By: #### L 300.4310, L100.0100, L300.3900, L500.2500, L500.3400 ####[facility] [address] [place], [address] Calcium [Mass/Vol] 8.2 mg/dL Normal 7.6-11.0 [facility] Comment on above: Performed By: #### L 300.4310, L100.0100, L300.3900, L500.2500, L500.3400 ####[facility] [address] [place], [address] Chloride [Moles/Vol] 102 mmol/L Normal 98-108 [facility] Comment on above: Performed By: #### L 300.4310, L100.0100, L300.3900, L500.2500, L500.3400 ####[facility] [address] [place], [address] CO2 [Moles/Vol] 22.5 mmol/L Normal 21.0-32.0 [facility] Comment on above: Performed By: #### L 300.4310, L100.0100, L300.3900, L500.2500, L500.3400 ####[facility] [address] [place], [address] Creatinine [Mass/Vol] 0.86 mg/dL Normal 0.70-1.20 [facility] Comment on above: Performed By: #### L 300.4310, L100.0100, L300.3900, L500.2500, L500.3400 ####[facility] [address] [place], [address] ECRCL 108.57 ml/min Normal 50-250 [facility] Comment on above: Performed By: #### L 300.4310, L100.0100, L300.3900, L500.2500, L500.3400 ####[facility] [address] [place], [address] GAP 10 Normal 5-15 [facility] Comment on above: Performed By: #### L 300.4310, L100.0100, L300.3900, L500.2500, L500.3400 ####[facility] [address] [place], [address] GFR/1.73 sq M.predicted among non-blacks MDRD (S/P/Bld) [Vol rate/Area] 99 mL/min/{1.73_m2} Normal >60 [facility] Comment on above: Result Comment: mL/m in/1.73m2 CKD-EPI Creatinine Equation (2020) Performed By: #### L 300.4310, L100.0100, L300.3900, L500.2500, L500.3400 ####[facility] [address] [place], [address] Glucose [Mass/Vol] 108 mg/dL High 70-99 [facility] Comment on above: Performed By: #### L 300.4310, L100.0100, L300.3900, L500.2500, L500.3400 ####[facility] [address] [place], [address] Potassium [Moles/Vol] 3.7 mmol/L Normal 3.3-5.1 [facility] Comment on above: Performed By: #### L 300.4310, L100.0100, L300.3900, L500.2500, L500.3400 ####[facility] [address] [place], [address] Sodium [Moles/Vol] 134 mmol/L Normal 133-145 [facility] Comment on above: Performed By: #### L 300.4310, L100.0100, L300.3900, L500.2500, L500.3400 ####[facility] [address] [place], [address] Urea nitrogen [Mass/Vol] 19 mg/dL Normal 4-19 [facility] Comment on above: Performed By: #### L 300.4310, L100.0100, L300.3900, L500.2500, L500.3400 ####[facility] [address] [place], [address] Bilirubin directOrdered By: Kitty Pruett on 10-12-2024 Bilirubin.direct [Mass/Vol] 0.31 mg/dL High 0.00-0.30 [facility] Bilirubin, totalOrdered By: Kitty [facility] on 10-12-2024 Bilirubin [Mass/Vol] 0.52 mg/dL 0.00-1.30 [facility] Biopsy/Inj or Needle Placeme nton 10-12-2024 Biopsy/Inj or Needle Placement Normal [facility] CBC W/Diff, Automatedon 09-26 Absolute Lymph 0.43 X10 3/uL Low 0.83-4.51 [facility] Comment on above: Performed By: #### L 300.4310, L100.0100, L300.3900, L500.2500, L500.3400 ####[facility] [address] [place], [address] Absolute Neut 5.6 X10 3/uL Normal 2.0-7.7 [facility] Comment on above: Performed By: #### L 300.4310, L100.0100, L300.3900, L500.2500, L500.3400 ####[facility] [address] [place], [address] Basophils/100 WBC (Bld) 0.3 % Normal 0-1 [facility] Comment on above: Performed By: #### L 300.4310, L100.0100, L300.3900, L500.2500, L500.3400 ####[facility] [address] [place], [address] Eosinophils/100 WBC (Bld) 1.4 % Normal 0-5 [facility] Comment on above: Performed By: #### L 300.4310, L100.0100, L300.3900, L500.2500, L500.3400 ####[facility] [address] [place], [address] Erythrocyte distribution width (RBC) [Ratio] 15.1 % High 11.6-14.6 [facility] Comment on above: Performed By: #### L 300.4310, L100.0100, L300.3900, L500.2500, L500.3400 ####[facility] [address] [place], [address] Hematocrit (Bld) [Volume fraction] 27.3 % Low 40-54 [facility] Comment on above: Performed By: #### L 300.4310, L100.0100, L300.3900, L500.2500, L500.3400 ####[facility] [address] [place], [address] Hemoglobin (Bld) [Mass/Vol] 9.1 g/dL Low 13.0-16.5 [facility] Comment on above: Performed By: #### L 300.4310, L100.0100, L300.3900, L500.2500, L500.3400 ####[facility] [address] [place], [address] IG% 0.800 Normal 0.0-0.9 [facility] Comment on above: Result Comment: IG% - Immature Granulocytes (promyelocytes, myelocytes andmetamyelocytes) > 1% indicates that a LEFT SHIFT is Present. Performed By: #### L 300.4310, L100.0100, L300.3900, L500.2500, L500.3400 ####[facility] [address] [place], [address] Lymphocytes/100 WBC (Bld) 6.5 % Low 19-41 [facility] Comment on above: Performed By: #### L 300.4310, L100.0100, L300.3900, L500.2500, L500.3400 ####[facility] [address] [place], [address] MCH (RBC) [Entitic mass] 28.5 pg Normal 27.0-32.0 [facility] Comment on above: Performed By: #### L 300.4310, L100.0100, L300.3900, L500.2500, L500.3400 ####[facility] [address] [place], [address] MCHC (RBC) [Mass/Vol] 33.3 g/dL Normal 32-36 [facility] Comment on above: Performed By: #### L 300.4310, L100.0100, L300.3900, L500.2500, L500.3400 ####[facility] [address] [place], [address] MCV (RBC) [Entitic vol] 85.6 fL Normal 80-94 [facility] Comment on above: Performed By: #### L 300.4310, L100.0100, L300.3900, L500.2500, L500.3400 ####[facility] [address] [place], [address] Monocytes/100 WBC (Bld) 6.2 % Normal 0-10 [facility] Comment on above: Performed By: #### L 300.4310, L100.0100, L300.3900, L500.2500, L500.3400 ####[facility] [address] [place], [address] Neutrophils/100 WBC (Bld) 84.8 % High 47-70 [facility] Comment on above: Performed By: #### L 300.4310, L100.0100, L300.3900, L500.2500, L500.3400 ####[facility] [address] [place], [address] Nucleated RBC (Bld) [#/Vol] 0 10*3/uL Normal 0-5 [facility] Comment on above: Performed By: #### L 300.4310, L100.0100, L300.3900, L500.2500, L500.3400 ####[facility] [address] [place], [address] Platelet mean volume (Bld) [Entitic vol] 9.0 fL Normal 6.2-12.0 [facility] Comment on above: Performed By: #### L 300.4310, L100.0100, L300.3900, L500.2500, L500.3400 ####[facility] [address] [place], [address] Platelets (Bld) [#/Vol] 263 10*3/uL Normal 150-450 [facility] Comment on above: Performed By: #### L 300.4310, L100.0100, L300.3900, L500.2500, L500.3400 ####[facility] [address] [place], [address] RBC (Bld) [#/Vol] 3.19 10*6/uL Low 4.6-6.2 [facility] Comment on above: Performed By: #### L 300.4310, L100.0100, L300.3900, L500.2500, L500.3400 ####[facility] [address] [place], [address] RDW SD 46.9 fl High 35.1-43.9 [facility] Comment on above: Performed By: #### L 300.4310, L100.0100, L300.3900, L500.2500, L500.3400 ####[facility] [address] [place], [address] WBC (Bld) [#/Vol] 6.6 10*3/uL Normal 4.4-11.0 [facility] Comment on above: Performed By: #### L 300.4310, L100.0100, L300.3900, L500.2500, L500.3400 ####[facility] [address] [place], [address] Discharge Instructionon 09-26 Discharge Instruction Normal [facility] Electrocardiogram reportOrde red By: Juan M Diaz on 10-12-2024 EKG study [facility] [address] [place] [address] 12 Lead EKG 10/11/24 0758 MR#: [id number] Acct: [id number] Name: DANNIE EDMONDSON Rep #:[id number] : 1960 63 From: Juan M Diaz MD Attending Dr: Dr. Andrews Watkins MD Status: ADM IN Ordering Dr: Darron Washington DO Date: Location: [facility] Sex: M C Admitted: 10/11/24 Test Reason : Blood Pressure : */* mmHG Vent. Rate : 83 BPM Atrial Rate : 83 BPM P-R Int : 186 ms QRS Dur : 118 ms QT Int : 404 ms P-R-T Axes : 22 -37 35 degrees QTcB Int : 474 ms Normal sinus rhythm Left axis deviation Non-specific intra-ventricular conduction delay Minimal voltage criteria for LVH, may be normal variant ( [place] product ) Abnormal ECG Confirmed by JUAN M DIAZ MD ([id number]), loan expeditor KRYSTINA HOWELL ([id number]) on 10/12/2024 10:46:55 AM Referred By: Confirmed By: JUAN M DIAZ MD 10/12/24 1046 Date _ Juan M Diaz MD CC: Dr. Andrews Watkins MD; Dr. Carlitos Brewer DO; Dr. Darron Washington DO ~ Signed [facility] Work Phone: Gram stainOrdered By: Kitty Pruett on 10-12-2024 Microscopic observation Gram stain Nom (Unsp spec) [facility] International normalized rat io (INR) calculationOrdered By: Kitty Pruett on 10-12-2024 INR Coag (Bld) [Relative time] 1.6 {INR} [facility] Laboratory - Chemistry and C hemistry - challengeOrdered By: Kitty Pruett on 10-12-2024 AST [Catalytic activity/Vol] 34 U/L <38 [facility] Liver Profileon 10-12-2024 Albumin [Mass/Vol] 2.8 g/dL Low 3.4-4.8 [facility] Comment on above: Performed By: #### L 300.4310, L100.0100, L300.3900, L500.2500, L500.3400 ####[facility] [address] [place], [address] ALK PHOS 122 U/L Normal 40-129 [facility] Comment on above: Performed By: #### L 300.4310, L100.0100, L300.3900, L500.2500, L500.3400 ####[facility] [address] [place], [address] ALT [Catalytic activity/Vol] 24 U/L Normal <=46 [facility] Comment on above: Performed By: #### L 300.4310, L100.0100, L300.3900, L500.2500, L500.3400 ####[facility] [address] [place], [address] AST [Catalytic activity/Vol] 34 U/L Normal <=37 [facility] Comment on above: Performed By: #### L 300.4310, L100.0100, L300.3900, L500.2500, L500.3400 ####[facility] [address] [place], [address] Bilirubin [Mass/Vol] 0.52 mg/dL Normal 0.00-1.30 [facility] Comment on above: Performed By: #### L 300.4310, L100.0100, L300.3900, L500.2500, L500.3400 ####[facility] [address] [place], [address] Bilirubin.direct [Mass/Vol] 0.31 mg/dL High 0.00-0.30 [facility] Comment on above: Performed By: #### L 300.4310, L100.0100, L300.3900, L500.2500, L500.3400 ####[facility] [address] [place], [address] Globulin (S) [Mass/Vol] 3.1 g/dL Normal 2.2-4.2 [facility] Comment on above: Performed By: #### L 300.4310, L100.0100, L300.3900, L500.2500, L500.3400 ####[facility] [address] [place], [address] T PROT 5.9 g/dL Normal 5.9-8.4 [facility] Comment on above: Performed By: #### L 300.4310, L100.0100, L300.3900, L500.2500, L500.3400 ####[facility] [address] [place], [address] Partial Thromboplast Timeon 10-12-2024 aPTT Coag (Bld) [Time] 49.3 s High 24.1-36.2 [facility] Comment on above: Performed By: #### L 300.4310, L100.0100, L300.3900, L500.2500, L500.3400 ####[facility] [address] [place], [address] Prothrombin Time w/INRon INR Normal [facility] Comment on above: Result Comment: OVER LAPPING- SEE CG3 ORDERED BY Performed By: #### L 300.3900 ####[facility] [address] [place], [address] PROTIME Normal 11.7-14.9 [facility] Comment on above: Result Comment: OVER LAPPING- SEE CG3 ORDERED BY Performed By: #### L 300.3900 ####[facility] [address] [place], [address] INR Coag (PPP) [Relative time] 1.6 {INR} Normal [facility] Comment on above: Performed By: #### L 300.4310, L100.0100, L300.3900, L500.2500, L500.3400 ####[facility] [address] [place], [address] PT Coag (PPP) [Time] 19.0 s High 11.7-14.9 [facility] Comment on above: Performed By: #### L 300.4310, L100.0100, L300.3900, L500.2500, L500.3400 ####[facility] [address] [place], [address] Prothrombin timeOrdered By: Kitty Pruett on 10-12-2024 PT Coag (PPP) [Time] 19.0 s High 11.7-14.9 [facility] Routine wound cultureOrdered By: Kitty Pruett on 10-12-2024 Microbial culture, routine Enterobacter cloacae complex Abnormal [facility] Serum globulin measurementOr dered By: Kitty Pruett on 10-12-2024 Globulin (S) [Mass/Vol] 3.1 g/dL 2.2-4.2 [facility] Serum or plasma alanine yeung otransferase (ALT) measurementOrdered By: Kitty Pruett on 10-12-2024 ALT [Catalytic activity/Vol] 24 U/L <47 [facility] Serum or plasma albumin delia urement (mass/volume)Ordered By: Kitty Pruett on 10-12-2024 Albumin [Mass/Vol] 2.8 g/dL Low 3.4-4.8 [facility] Serum or plasma alkaline jeffry sphatase measurementOrdered By: [facility] on 10-12-2024 ALP [Catalytic activity/Vol] 122 U/L 40-129 [facility] Total proteinOrdered By: [facility] on 10-12-2024 Protein [Mass/Vol] 5.9 g/dL 5.9-8.4 [facility] 12 Lead EKGon 10-11-2024 12 Lead EKG Normal [facility] Abdomen/Pelvis W IV Cont ONL Yon 10-11-2024 Abdomen/Pelvis W IV Cont ONLY Normal [facility] Absolute lymphocyte countOrd ered By: Darron Washington on 10-11-2024 Lymphocytes Auto (Unsp spec) [#/Vol] 0.63 10*3/uL Low 0.83-4.51 [facility] [facility] Absolute neutrophil countOrd ered By: Darron Washington on 10-11-2024 Neutrophils (Bld) [#/Vol] 10.0 10*3/uL High 2.0-7.7 [facility] Anion gap in Serum or Plasma Ordered By: Darron Washington on 10-11-2024 Anion gap [Moles/Vol] 14 mmol/L 5-15 [facility] Automated lymphocyte count a s percentage of total leukocytesOrdered By: Darron Washington on 10-11-2024 Lymphocytes/100 WBC Auto (Unsp spec) 5.4 % Low 19-41 [facility] BUN/creatinine ratioOrdered By: Darron Washington on 10-11-2024 Urea nitrogen/Creatinine [Mass ratio] 16.6 mg/mg 10-20 [facility] Basophil percentageOrdered B y: Darron Washington on 10-11-2024 Basophils/100 WBC (Bld) 0.3 % 0-1 [facility] Bilirubin, totalOrdered By: Darron Washington on 10-11-2024 Bilirubin [Mass/Vol] 0.99 mg/dL 0.00-1.30 [facility] Blood cultureOrdered By: Larry Watkins on 10-11-2024 Bacteria identified Cx Nom (Bld) No growth in 5 days. [facility] Bacteria identified Cx Nom (Bld) No growth in 5 days. [facility] CBC W/Diff, Automatedon 06-05 03-2024 Absolute Lymph 0.63 X10 3/uL Low 0.83-4.51 [facility] Comment on above: Performed By: #### L 501.4021, L100.0100 ####[facility] [address] [place], [address] Absolute Neut 10.0 X10 3/uL High 2.0-7.7 [facility] Comment on above: Performed By: #### L 501.4021, L100.0100 ####[facility] [address] [place], [address] Basophils/100 WBC (Bld) 0.3 % Normal 0-1 [facility] Comment on above: Performed By: #### L 501.4021, L100.0100 ####[facility] [address] [place], [address] Eosinophils/100 WBC (Bld) 0.1 % Normal 0-5 [facility] Comment on above: Performed By: #### L 501.4021, L100.0100 ####[facility] [address] [place], [address] Erythrocyte distribution width (RBC) [Ratio] 14.8 % High 11.6-14.6 [facility] Comment on above: Performed By: #### L 501.4021, L100.0100 ####[facility] [address] [place], [address] Hematocrit (Bld) [Volume fraction] 34.4 % Low 40-54 [facility] Comment on above: Performed By: #### L 501.4021, L100.0100 ####[facility] [address] [place], [address] Hemoglobin (Bld) [Mass/Vol] 11.4 g/dL Low 13.0-16.5 [facility] Comment on above: Performed By: #### L 501.4021, L100.0100 ####[facility] [address] [place], [address] IG% 1.400 High 0.0-0.9 [facility] Comment on above: Result Comment: IG% - Immature Granulocytes (promyelocytes, myelocytes andmetamyelocytes) > 1% indicates that a LEFT SHIFT is Present. Performed By: #### L 501.4021, L100.0100 ####[facility] [address] [place], [address] Lymphocytes/100 WBC (Bld) 5.4 % Low 19-41 [facility] Comment on above: Performed By: #### L 501.4021, L100.0100 ####[facility] [address] [place], [address] MCH (RBC) [Entitic mass] 28.0 pg Normal 27.0-32.0 [facility] Comment on above: Performed By: #### L 501.4021, L100.0100 ####[facility] [address] [place], [address] MCHC (RBC) [Mass/Vol] 33.1 g/dL Normal 32-36 [facility] Comment on above: Performed By: #### L 501.4021, L100.0100 ####[facility] [address] [place], [address] MCV (RBC) [Entitic vol] 84.5 fL Normal 80-94 [facility] Comment on above: Performed By: #### L 501.4021, L100.0100 ####[facility] [address] [place], [address] Monocytes/100 WBC (Bld) 8.0 % Normal 0-10 [facility] Comment on above: Performed By: #### L 501.4021, L100.0100 ####[facility] [address] [place], [address] Neutrophils/100 WBC (Bld) 84.8 % High 47-70 [facility] Comment on above: Performed By: #### L 501.4021, L100.0100 ####[facility] [address] [place], [address] Nucleated RBC (Bld) [#/Vol] 0 10*3/uL Normal 0-5 [facility] Comment on above: Performed By: #### L 501.4021, L100.0100 ####[facility] [address] [place], [address] Platelet mean volume (Bld) [Entitic vol] 9.2 fL Normal 6.2-12.0 [facility] Comment on above: Performed By: #### L 501.4021, L100.0100 ####[facility] [address] [place], [address] Platelets (Bld) [#/Vol] 358 10*3/uL Normal 150-450 [facility] Comment on above: Performed By: #### L 501.4021, L100.0100 ####[facility] [address] [place], [address] RBC (Bld) [#/Vol] 4.07 10*6/uL Low 4.6-6.2 [facility] Comment on above: Performed By: #### L 501.4021, L100.0100 ####[facility] [address] [place], [address] RDW SD 45.7 fl High 35.1-43.9 [facility] Comment on above: Performed By: #### L 501.4021, L100.0100 ####[facility] [address] [place], [address] WBC (Bld) [#/Vol] 11.7 10*3/uL High 4.4-11.0 [facility] Comment on above: Performed By: #### L 501.4021, L100.0100 ####[facility] [address] [place], [address] CTA Chest W/WO Contraston CTA Chest W/WO Contrast Normal [facility] Carbon dioxide, total [Moles /volume] in Central venous bloodOrdered By: Darron Washington on 10-11-2024 CO2 [Moles/Vol] 20.6 mmol/L Low 21.0-32.0 [facility] Chloride assayOrdered By: Luca Washington on 10-11-2024 Chloride [Moles/Vol] 99 mmol/L 98-108 [facility] Comprehensive Metabolic Prof ilon 10-11-2024 Albumin [Mass/Vol] 3.4 g/dL Normal 3.4-4.8 [facility] Comment on above: Performed By: #### L 501.2450, L500.4050, L503.7505 ####[facility] [address] [place], [address] Albumin/Globulin [Mass ratio] 0.9 {ratio} Normal 0.9-2.4 [facility] Comment on above: Performed By: #### L 501.2450, L500.4050, L503.7505 ####[facility] [address] [place], [address] ALK PHOS 152 U/L High 40-129 [facility] Comment on above: Performed By: #### L 501.2450, L500.4050, L503.7505 ####[facility] [address] [place], [address] ALT [Catalytic activity/Vol] 16 U/L Normal <=46 [facility] Comment on above: Performed By: #### L 501.2450, L500.4050, L503.7505 ####[facility] [address] [place], [address] AST [Catalytic activity/Vol] 22 U/L Normal <=37 [facility] Comment on above: Performed By: #### L 501.2450, L500.4050, L503.7505 ####[facility] [address] [place], [address] Bilirubin [Mass/Vol] 0.99 mg/dL Normal 0.00-1.30 [facility] Comment on above: Performed By: #### L 501.2450, L500.4050, L503.7505 ####[facility] [address] [place], [address] BUN/CRE 16.6 RATIO Normal 10-20 [facility] Comment on above: Performed By: #### L 501.2450, L500.4050, L503.7505 ####[facility] [address] [place], [address] Calcium [Mass/Vol] 9.0 mg/dL Normal 7.6-11.0 [facility] Comment on above: Performed By: #### L 501.2450, L500.4050, L503.7505 ####[facility] [address] [place], [address] Chloride [Moles/Vol] 99 mmol/L Normal 98-108 [facility] Comment on above: Performed By: #### L 501.2450, L500.4050, L503.7505 ####[facility] [address] [place], [address] CO2 [Moles/Vol] 20.6 mmol/L Low 21.0-32.0 [facility] Comment on above: Performed By: #### L 501.2450, L500.4050, L503.7505 ####[facility] [address] [place], [address] Creatinine [Mass/Vol] 1.44 mg/dL High 0.70-1.20 [facility] Comment on above: Performed By: #### L 501.2450, L500.4050, L503.7505 ####[facility] [address] [place], [address] ECRCL 63.94 ml/min Normal 50-250 [facility] Comment on above: Performed By: #### L 501.2450, L500.4050, L503.7505 ####[facility] [address] [place], [address] GAP 14 Normal 5-15 [facility] Comment on above: Performed By: #### L 501.2450, L500.4050, L503.7505 ####[facility] [address] [place], [address] GFR/1.73 sq M.predicted among non-blacks MDRD (S/P/Bld) [Vol rate/Area] 55 mL/min/{1.73_m2} Low >60 [facility] Comment on above: Result Comment: mL/m in/1.73m2 CKD-EPI Creatinine Equation (2020) Performed By: #### L 501.2450, L500.4050, L503.7505 ####[facility] [address] [place], [address] Globulin (S) [Mass/Vol] 3.6 g/dL Normal 2.2-4.2 [facility] Comment on above: Performed By: #### L 501.2450, L500.4050, L503.7505 ####[facility] [address] [place], [address] Glucose [Mass/Vol] 149 mg/dL High 70-99 [facility] Comment on above: Performed By: #### L 501.2450, L500.4050, L503.7505 ####[facility] [address] [place], [address] Potassium [Moles/Vol] 3.6 mmol/L Normal 3.3-5.1 [facility] Comment on above: Performed By: #### L 501.2450, L500.4050, L503.7505 ####[facility] [address] [place], [address] Sodium [Moles/Vol] 133 mmol/L Normal 133-145 [facility] Comment on above: Performed By: #### L 501.2450, L500.4050, L503.7505 ####[facility] [address] [place], [address] T PROT 7.0 g/dL Normal 5.9-8.4 [facility] Comment on above: Performed By: #### L 501.2450, L500.4050, L503.7505 ####[facility] [address] [place], [address] Urea nitrogen [Mass/Vol] 24 mg/dL High 4-19 [facility] Comment on above: Performed By: #### L 501.2450, L500.4050, L503.7505 ####[facility] [address] [place], [address] Consultation - Surgicalon Consultation - Surgical Normal [facility] Emergency Department Summary on 10-11-2024 Emergency Department Summary Normal [facility] Eosinophil percentageOrdered By: Darron Washington on 10-11-2024 Eosinophils/100 WBC (Bld) 0.1 % 0-5 [facility] Erythrocyte distribution wid th ratioOrdered By: Darron Washington on 10-11-2024 Erythrocyte distribution width (RBC) [Ratio] 14.8 % High 11.6-14.6 [facility] Erythrocyte distribution wid th standard deviationOrdered By: Darron Washington on 10-11-2024 Erythrocyte distribution width (RBC) [Ratio] 45.7 fl High 35.1-43.9 [facility] Glomerular filtration rate ( GFR) estimation/1.73 sq m using serum, plasma, or whole bOrdered By: Darron Washington on 10-11-2024 GFR/1.73 sq M.predicted among non-blacks MDRD (S/P/Bld) [Vol rate/Area] 55 mL/min/{1.73_m2} Low >60 [facility] Comment on above: mL/min/1.73m2 CKD-EP I Creatinine Equation (2020) H AND P Exam - Hospitaliston 10-11-2024 H&P Exam - Hospitalist Normal [facility] Hematocrit Auto (Bld) [Volum e fraction]Ordered By: Darron Washington on 10-11-2024 Hematocrit (Bld) [Volume fraction] 34.4 % Low 40-54 [facility] Hemoglobin measurementOrdere d By: Darron Washington on 10-11-2024 Hemoglobin (Bld) [Mass/Vol] 11.4 g/dL Low 13.0-16.5 [facility] Immature granulocytes/100 WB C Auto (Bld)Ordered By: Darron Washington on 10-11-2024 Immature granulocytes/100 WBC (Bld) 1.400 % High 0.0-0.9 [facility] Comment on above: IG% - Immature Granu locytes (promyelocytes, myelocytes and metamyelocytes) > 1% indicates that a LEFT SHIFT is Present. L499.0042on 10-11-2024 Trop T High Sen 27 ng/L High <=22 [facility] Comment on above: Performed By: #### L 499.0042 ####[facility] [address] [place], [place], [address] L499.0043on 10-11-2024 Trop T High Sen 24 ng/L High <=22 [facility] Comment on above: Performed By: #### L 499.0043 ####[facility] [address] [place], [place], [address] L501.4021on 10-11-2024 Trop T High Sen 30 ng/L High <=22 [facility] Comment on above: Performed By: #### L 501.4021, L100.0100 ####[facility] [address] [place], [address] L503.7505on 10-11-2024 Natriuretic peptide B (Bld) [Mass/Vol] 896 pg/mL Normal <=900 [facility] Comment on above: Result Comment: Hear t Failure Unlikely: < 300 pg/mLHeart Failure Likely< 50 Years: > 450 pg/mL50-75 Years: > 900 pg/mL>75 Years: > 1800 pg/mL Performed By: #### L 501.2450, L500.4050, L503.7505 ####[facility] [address] [place], [place], [id number] Laboratory - Chemistry and C hemistry - challengeOrdered By: Darron Washington on 10-11-2024 AST [Catalytic activity/Vol] 22 U/L <38 [facility] Legionella Antigen Urineon 0 10-11-2024 LEGU Normal [facility] Comment on above: Performed By: #### M 300.4500, M300.4600 ####[facility] [address] [place], [address] Lipaseon 10-11-2024 Lipase [Catalytic activity/Vol] 15 U/L Normal 13-75 [facility] Comment on above: Result Comment: Plea se note:LIPASE revised reference range effective 22.New Lipase methodology. Expected to produce lower valuesthan the previous assay method.NEW Reference Range: 13 - 75 U/L Performed By: #### L 501.2450, L500.4050, L503.7505 ####[facility] [address] [place], [address] Lipase measurementOrdered By : Darron Washington on 10-11-2024 Lipase [Catalytic activity/Vol] 15 U/L 13-75 [facility] Comment on above: Please note:LIPASE r evised reference range effective 22. New Lipase methodology. Expected to produce lower values than the previous assay method. NEW Reference Range: 13 - 75 U/L MCV (mean corpuscular volume ) determinationOrdered By: Darron Washington on 10-11-2024 MCV (RBC) [Entitic vol] 84.5 fL 80-94 [facility] Mean corpuscular hemoglobin (MCH) determinationOrdered By: Darron Washington on 10-11-2024 MCH (RBC) [Entitic mass] 28.0 pg 27.0-32.0 [facility] Mean corpuscular hemoglobin concentration (MCHC) determinationOrdered By: Darron Washington on 10-11-2024 MCHC (RBC) [Mass/Vol] 33.1 g/dL 32-36 [facility] Mean platelet volume determi nationOrdered By: Darron Washington on 10-11-2024 Platelet mean volume (Bld) [Entitic vol] 9.2 fL 6.2-12.0 [facility] Monocyte percentageOrdered B y: Darron Washington on 10-11-2024 Monocytes/100 WBC (Bld) 8.0 % 0-10 [facility] Natriuretic peptide.B prohor oswald N-Terminal [Mass/volume] in Serum or PlasmaOrdered By: Darron Washington on 10-11-2024 Natriuretic peptide.B prohormone N-Terminal [Mass/Vol] 896 pg/mL <900 [facility] Comment on above: Heart Failure Unlike ly: < 300 pg/mLHeart Failure Likely< 50 Years: > 450 pg/mL50-75 Years: > 900 pg/mL>75 Years: > 1800 pg/mL Neutrophil percentageOrdered By: Darron Washington on 10-11-2024 Neutrophils/100 WBC (Bld) 84.8 % High 47-70 [facility] Nucleated red blood cell per centageOrdered By: Darron Washington on 10-11-2024 Nucleated RBC/100 WBC (Bld) [Ratio] 0 % 0-5 [facility] Platelet countOrdered By: Luca Washington on 10-11-2024 Platelets (Bld) [#/Vol] 358 10*3/uL 150-450 [facility] Potassium measurement (mass/ volume)Ordered By: Darron Washington on 10-11-2024 Potassium (Unsp spec) [Mass/Vol] 3.6 mmol/L 3.3-5.1 [facility] RBC Auto (Bld) [#/Vol]Ordere d By: Darron Washington on 10-11-2024 RBC (Bld) [#/Vol] 4.07 10*6/uL Low 4.6-6.2 [facility] Serum creatinine measurement (mass/volume)Ordered By: Darron Washington on 10-11-2024 Creatinine [Mass/Vol] 1.44 mg/dL High 0.70-1.20 [facility] Serum globulin measurementOr dered By: Darron Washington on 10-11-2024 Globulin (S) [Mass/Vol] 3.6 g/dL 2.2-4.2 [facility] Serum glucose measurement (m ass/volume)Ordered By: Darron Washington on 10-11-2024 Glucose [Mass/Vol] 149 mg/dL High 70-99 [facility] Serum or plasma alanine yeung otransferase (ALT) measurementOrdered By: Darron Washington on 10-11-2024 ALT [Catalytic activity/Vol] 16 U/L <47 [facility] Serum or plasma albumin delia urement (mass/volume)Ordered By: Darron Washington on 10-11-2024 Albumin [Mass/Vol] 3.4 g/dL 3.4-4.8 [facility] Serum or plasma albumin/glob ulin mass ratioOrdered By: Darron Washington on 10-11-2024 Albumin/Globulin [Mass ratio] 0.9 {ratio} 0.9-2.4 [facility] Serum or plasma alkaline jeffry sphatase measurementOrdered By: Darron Washington 10-11-2024 ALP [Catalytic activity/Vol] 152 U/L High 40-129 [facility] Serum or plasma calcium delia urement (mass/volume)Ordered By: Darron Washington on 10-11-2024 Calcium [Mass/Vol] 9.0 mg/dL 7.6-11.0 [facility] Serum or plasma urea nitroge n measurement (mass/volume)Ordered By: Darron Washington on 10-11-2024 Urea nitrogen [Mass/Vol] 24 mg/dL High 4-19 [facility] Sodium levelOrdered By: Christy Washington on 10-11-2024 Sodium [Moles/Vol] 133 mmol/L 133-145 [facility] Strep pneumoniae Antig(UR,CS F)on 10-11-2024 STPAG Normal [facility] Comment on above: Performed By: #### M 300.0950, M300.4600 ####[facility] [address] [place], [address] Total proteinOrdered By: Flip Washington on 10-11-2024 Protein [Mass/Vol] 7.0 g/dL 5.9-8.4 [facility] Troponin T.cardiac [Mass/vol ume] in Serum or Plasma by High sensitivity methodOrdered By: Darron Washington on 10-11-2024 Troponin T.cardiac High sensitivity method [Mass/Vol] 24 ng/L High <22 [facility] Troponin T.cardiac High sensitivity method [Mass/Vol] 27 ng/L High <22 [facility] Troponin T.cardiac High sensitivity method [Mass/Vol] 30 ng/L High <22 [facility] Urine Legionella pneumophila antigen detectionOrdered By: Darron Washington on 10-11-2024 L. pneumophila Ag Ql (U) [facility] White blood cell (WBC) count Ordered By: Darron Washington on 10-11-2024 WBC (Bld) [#/Vol] 11.7 10*3/uL High 4.4-11.0 [facility] Absolute lymphocyte countOrd ered By: Jignesh Purcell on 09-08-2024 Lymphocytes Auto (Unsp spec) [#/Vol] 0.51 10*3/uL Low 0.83-4.51 [facility] Absolute neutrophil countOrd ered By: Jignesh Purcell on 09-08-2024 Neutrophils (Bld) [#/Vol] 1.7 10*3/uL Low 2.0-7.7 [facility] Anion gap in Serum or Plasma Ordered By: Jignesh Purcell on 09-08-2024 Anion gap [Moles/Vol] 8 mmol/L 5-15 [facility] Automated lymphocyte count a s percentage of total leukocytesOrdered By: Jignesh Jazzy on 09-08-2024 Lymphocytes/100 WBC Auto (Unsp spec) 19.8 % 19-41 [facility] BUN/creatinine ratioOrdered By: Jignesh Jazzy on 09-08-2024 Urea nitrogen/Creatinine [Mass ratio] 21.6 mg/mg High 10-20 [facility] Basophil percentageOrdered B y: Jignesh Purcell on 09-08-2024 Basophils/100 WBC (Bld) 0.8 % 0-1 [facility] Bilirubin, totalOrdered By: Jignesh Jazzy on 09-08-2024 Bilirubin [Mass/Vol] 0.30 mg/dL 0.00-1.30 [facility] Blood manual differential co mment interpretation (narrative result)Ordered By: Kristiealejandro Purcell on 09-08-2024 Manual differential comment Davon (Bld) [Interp] COMMENT [facility] Comment on above: LYMPHOPENIA. CBC W/Diff, Automatedon 08-26 SMEAR COMMENT COMMENT Normal [facility] Comment on above: Result Comment: LYMP HOPENIA. Performed By: #### L 501.9940, L100.0100, L500.4050 ####[facility] [address] [place], [place], [id number] Carbon dioxide, total [Moles /volume] in Central venous bloodOrdered By: Jignesh Purcell on 09-08-2024 CO2 [Moles/Vol] 23.8 mmol/L 21.0-32.0 [facility] Chloride assayOrdered By: Cash Purcell on 09-08-2024 Chloride [Moles/Vol] 106 mmol/L 98-108 [facility] Comprehensive Metabolic Prof ilon 09-08-2024 Albumin [Mass/Vol] 3.7 g/dL Normal 3.4-4.8 [facility] Comment on above: Performed By: #### L 501.9940, L100.0100, L500.4050 ####[facility] [address] [place], [address] Albumin/Globulin [Mass ratio] 1.2 {ratio} Normal 0.9-2.4 [facility] Comment on above: Performed By: #### L 501.9940, L100.0100, L500.4050 ####[facility] [address] [place], [address] ALK PHOS 164 U/L High 40-129 [facility] Comment on above: Performed By: #### L 501.9940, L100.0100, L500.4050 ####[facility] [address] [place], [address] ALT [Catalytic activity/Vol] 10 U/L Normal <=46 [facility] Comment on above: Performed By: #### L 501.9940, L100.0100, L500.4050 ####[facility] [address] [place], [address] AST [Catalytic activity/Vol] 20 U/L Normal <=37 [facility] Comment on above: Performed By: #### L 501.9940, L100.0100, L500.4050 ####[facility] [address] [place], [address] Bilirubin [Mass/Vol] 0.30 mg/dL Normal 0.00-1.30 [facility] Comment on above: Performed By: #### L 501.9940, L100.0100, L500.4050 ####[facility] [address] [place], [address] BUN/CRE 21.6 RATIO High 10-20 [facility] Comment on above: Performed By: #### L 501.9940, L100.0100, L500.4050 ####[facility] [address] [place], [address] Calcium [Mass/Vol] 9.4 mg/dL Normal 7.6-11.0 [facility] Comment on above: Performed By: #### L 501.9940, L100.0100, L500.4050 ####[facility] [address] [place], [address] Chloride [Moles/Vol] 106 mmol/L Normal 98-108 [facility] Comment on above: Performed By: #### L 501.9940, L100.0100, L500.4050 ####[facility] [address] [place], [address] CO2 [Moles/Vol] 23.8 mmol/L Normal 21.0-32.0 [facility] Comment on above: Performed By: #### L 501.9940, L100.0100, L500.4050 ####[facility] [address] [place], [address] Creatinine [Mass/Vol] 0.68 mg/dL Low 0.70-1.20 [facility] Comment on above: Performed By: #### L 501.9940, L100.0100, L500.4050 ####[facility] [address] [place], [address] ECRCL 141.34 ml/min Normal 50-250 [facility] Comment on above: Performed By: #### L 501.9940, L100.0100, L500.4050 ####[facility] [address] [place], [address] GAP 8 Normal 5-15 [facility] Comment on above: Performed By: #### L 501.9940, L100.0100, L500.4050 ####[facility] [address] [place], [address] GFR/1.73 sq M.predicted among non-blacks MDRD (S/P/Bld) [Vol rate/Area] 106 mL/min/{1.73_m2} Normal >60 [facility] Comment on above: Result Comment: mL/m in/1.73m2 CKD-EPI Creatinine Equation (2020) Performed By: #### L 501.9940, L100.0100, L500.4050 ####[facility] [address] [place], [address] Globulin (S) [Mass/Vol] 3.0 g/dL Normal 2.2-4.2 [facility] Comment on above: Performed By: #### L 501.9940, L100.0100, L500.4050 ####[facility] [address] [place], [address] Glucose [Mass/Vol] 115 mg/dL High 70-99 [facility] Comment on above: Performed By: #### L 501.9940, L100.0100, L500.4050 ####[facility] [address] [place], [address] Potassium [Moles/Vol] 3.8 mmol/L Normal 3.3-5.1 [facility] Comment on above: Performed By: #### L 501.9940, L100.0100, L500.4050 ####[facility] [address] [place], [address] Sodium [Moles/Vol] 138 mmol/L Normal 133-145 [facility] Comment on above: Performed By: #### L 501.9940, L100.0100, L500.4050 ####[facility] [address] [place], [address] T PROT 6.7 g/dL Normal 5.9-8.4 [facility] Comment on above: Performed By: #### L 501.9940, L100.0100, L500.4050 ####[facility] [address] [place], [address] Urea nitrogen [Mass/Vol] 15 mg/dL Normal 4-19 [facility] Comment on above: Performed By: #### L 501.9940, L100.0100, L500.4050 ####[facility] [address] [place], [address] Eosinophil percentageOrdered By: Jignesh Purcell on 09-08-2024 Eosinophils/100 WBC (Bld) 1.9 % 0-5 [facility] Erythrocyte distribution wid th ratioOrdered By: [facility]cell on 09-08-2024 Erythrocyte distribution width (RBC) [Ratio] 14.3 % 11.6-14.6 [facility] Erythrocyte distribution wid th standard deviationOrdered By: Jignesh Purcell on 09-08-2024 Erythrocyte distribution width (RBC) [Ratio] 45.0 fl High 35.1-43.9 [facility] Glomerular filtration rate ( GFR) estimation/1.73 sq m using serum, plasma, or whole bOrdered By: Jignesh Purcell on 09-08-2024 GFR/1.73 sq M.predicted among non-blacks MDRD (S/P/Bld) [Vol rate/Area] 106 mL/min/{1.73_m2} >60 [facility] Comment on above: mL/min/1.73m2 CKD-EP I Creatinine Equation (2020) Hematocrit Auto (Bld) [Volum e fraction]Ordered By: Jignesh Purcell on 09-08-2024 Hematocrit (Bld) [Volume fraction] 32.8 % Low 40-54 [facility] Hemoglobin measurementOrdere d By: Jignesh Purcell on 09-08-2024 Hemoglobin (Bld) [Mass/Vol] 10.8 g/dL Low 13.0-16.5 [facility] Immature granulocytes/100 WB C Auto (Bld)Ordered By: Jignesh Purcell on 09-08-2024 Immature granulocytes/100 WBC (Bld) 0.400 % 0.0-0.9 [facility] Comment on above: IG% - Immature Granu locytes (promyelocytes, myelocytes and metamyelocytes) > 1% indicates that a LEFT SHIFT is Present. Laboratory - Chemistry and C hemistry - challengeOrdered By: Jignesh Purcell on 09-08-2024 AST [Catalytic activity/Vol] 20 U/L <38 [facility] MCV (mean corpuscular volume ) determinationOrdered By: Kristiealejandro Purcell on 09-08-2024 MCV (RBC) [Entitic vol] 86.8 fL 80-94 [facility] Mean corpuscular hemoglobin (MCH) determinationOrdered By: [facility] Purcell on 09-08-2024 MCH (RBC) [Entitic mass] 28.6 pg 27.0-32.0 [facility] Mean corpuscular hemoglobin concentration (MCHC) determinationOrdered By: [facility] Purcell on 09-08-2024 MCHC (RBC) [Mass/Vol] 32.9 g/dL 32-36 [facility] Mean platelet volume determi nationOrdered By: Jignesh Purcell on 09-08-2024 Platelet mean volume (Bld) [Entitic vol] 9.0 fL 6.2-12.0 [facility] Monocyte percentageOrdered B y: Jignesh Purcell on 09-08-2024 Monocytes/100 WBC (Bld) 13.2 % High 0-10 [facility] Neutrophil percentageOrdered By: [facility] Jazzy on 09-08-2024 Neutrophils/100 WBC (Bld) 63.9 % 47-70 [facility] Nucleated red blood cell per centageOrdered By: [facility] Purcell on 09-08-2024 Nucleated RBC/100 WBC (Bld) [Ratio] 0 % 0-5 [facility] Oncology Visit Reporton 08-26 Oncology Visit Report Normal [facility] PSA,Total- Diagnosticon 08-26 PSA, DIAGNOSTIC 4.97 ng/mL High 0.00-4.00 [facility] Comment on above: Result Comment: This test was performed using the [employer] tPSAmethod. Measured values of a patient??sample can varydepending on the testing procedure used. PSA valuesdetermined on patient samples by different testingprocedures cannot be used interchangeably. If there is achange in PSA assays while monitoring therapy, sequentialtesting should be performed to confirm baseline values. Performed By: #### L 501.9940, L100.0100, L500.4050 ####[facility] [address] [place], [address] Platelet countOrdered By: Cash Purcell on 09-08-2024 Platelets (Bld) [#/Vol] 252 10*3/uL 150-450 [facility] Potassium measurement (mass/ volume)Ordered By: Jignesh Purcell on 09-08-2024 Potassium (Unsp spec) [Mass/Vol] 3.8 mmol/L 3.3-5.1 [facility] RBC Auto (Bld) [#/Vol]Ordere d By: Jignesh Purcell on 09-08-2024 RBC (Bld) [#/Vol] 3.78 10*6/uL Low 4.6-6.2 [facility] Serum creatinine measurement (mass/volume)Ordered By: Jignesh Purcell on 09-08-2024 Creatinine [Mass/Vol] 0.68 mg/dL Low 0.70-1.20 [facility] Serum globulin measurementOr dered By: Jignesh Purcell on 09-08-2024 Globulin (S) [Mass/Vol] 3.0 g/dL 2.2-4.2 [facility] Serum glucose measurement (m ass/volume)Ordered By: Jignesh Purcell on 09-08-2024 Glucose [Mass/Vol] 115 mg/dL High 70-99 [facility] Serum or plasma alanine yeung otransferase (ALT) measurementOrdered By: Jignesh Purcell on 09-08-2024 ALT [Catalytic activity/Vol] 10 U/L <47 [facility] Serum or plasma albumin delia urement (mass/volume)Ordered By: Jignesh Purcell on 09-08-2024 Albumin [Mass/Vol] 3.7 g/dL 3.4-4.8 [facility] Serum or plasma albumin/glob ulin mass ratioOrdered By: Jignesh Purcell on 09-08-2024 Albumin/Globulin [Mass ratio] 1.2 {ratio} 0.9-2.4 [facility] Serum or plasma alkaline jeffry sphatase measurementOrdered By: Jignesh Purcell on 09-08-2024 ALP [Catalytic activity/Vol] 164 U/L High 40-129 [facility] Serum or plasma calcium delia urement (mass/volume)Ordered By: Jignesh Purcell on 09-08-2024 Calcium [Mass/Vol] 9.4 mg/dL 7.6-11.0 [facility] Serum or plasma urea nitroge n measurement (mass/volume)Ordered By: Jignesh Purcell on 09-08-2024 Urea nitrogen [Mass/Vol] 15 mg/dL 4-19 [facility] Sodium levelOrdered By: Kristie alejandro Jazzy on 09-08-2024 Sodium [Moles/Vol] 138 mmol/L 133-145 [facility] Total proteinOrdered By: Moses Purcell on 09-08-2024 Protein [Mass/Vol] 6.7 g/dL 5.9-8.4 [facility] White blood cell (WBC) count Ordered By: Jignesh Purcell on 09-08-2024 WBC (Bld) [#/Vol] 2.6 10*3/uL Low 4.4-11.0 [facility] Radiation Oncology Visiton 0 09-01-2024 Radiation Oncology Visit Normal [facility] Radiation Oncology Visit Normal [facility] Bone Scan Whole Bodyon 08-25 Bone Scan Whole Body Normal [facility] Oncology Visit Reporton 07-28 Oncology Visit Report Normal [facility] CBC W/Diff, Automatedon 07-27 Absolute Lymph 1.02 X10 3/uL Normal 0.83-4.51 [facility] Comment on above: Performed By: #### L 501.9940, L100.0100, L500.4050 ####[facility] [address] [place], [address] Absolute Neut 1.8 X10 3/uL Low 2.0-7.7 [facility] Comment on above: Performed By: #### L 501.9940, L100.0100, L500.4050 ####[facility] [address] [place], [address] Basophils/100 WBC (Bld) 0.9 % Normal 0-1 [facility] Comment on above: Performed By: #### L 501.9940, L100.0100, L500.4050 ####[facility] [address] [place], [address] Eosinophils/100 WBC (Bld) 2.7 % Normal 0-5 [facility] Comment on above: Performed By: #### L 501.9940, L100.0100, L500.4050 ####[facility] [address] [place], [address] Erythrocyte distribution width (RBC) [Ratio] 13.4 % Normal 11.6-14.6 [facility] Comment on above: Performed By: #### L 501.9940, L100.0100, L500.4050 ####[facility] [address] [place], [address] Hematocrit (Bld) [Volume fraction] 33.4 % Low 40-54 [facility] Comment on above: Performed By: #### L 501.9940, L100.0100, L500.4050 ####[facility] [address] [place], [address] Hemoglobin (Bld) [Mass/Vol] 11.3 g/dL Low 13.0-16.5 [facility] Comment on above: Performed By: #### L 501.9940, L100.0100, L500.4050 ####[facility] [address] [place], [address] IG% 0.300 Normal 0.0-0.9 [facility] Comment on above: Result Comment: IG% - Immature Granulocytes (promyelocytes, myelocytes andmetamyelocytes) > 1% indicates that a LEFT SHIFT is Present. Performed By: #### L 501.9940, L100.0100, L500.4050 ####[facility] [address] [place], [address] Lymphocytes/100 WBC (Bld) 30.5 % Normal 19-41 [facility] Comment on above: Performed By: #### L 501.9940, L100.0100, L500.4050 ####[facility] [address] [place], [address] MCH (RBC) [Entitic mass] 28.7 pg Normal 27.0-32.0 [facility] Comment on above: Performed By: #### L 501.9940, L100.0100, L500.4050 ####[facility] [address] [place], [address] MCHC (RBC) [Mass/Vol] 33.8 g/dL Normal 32-36 [facility] Comment on above: Performed By: #### L 501.9940, L100.0100, L500.4050 ####[facility] [address] [place], [address] MCV (RBC) [Entitic vol] 84.8 fL Normal 80-94 [facility] Comment on above: Performed By: #### L 501.9940, L100.0100, L500.4050 ####[facility] [address] [place], [address] Monocytes/100 WBC (Bld) 12.6 % High 0-10 [facility] Comment on above: Performed By: #### L 501.9940, L100.0100, L500.4050 ####[facility] [address] [place], [address] Neutrophils/100 WBC (Bld) 53.0 % Normal 47-70 [facility] Comment on above: Performed By: #### L 501.9940, L100.0100, L500.4050 ####[facility] [address] [place], [address] Nucleated RBC (Bld) [#/Vol] 0 10*3/uL Normal 0-5 [facility] Comment on above: Performed By: #### L 501.9940, L100.0100, L500.4050 ####[facility] [address] [place], [address] Platelet mean volume (Bld) [Entitic vol] 9.0 fL Normal 6.2-12.0 [facility] Comment on above: Performed By: #### L 501.9940, L100.0100, L500.4050 ####[facility] [address] [place], [address] Platelets (Bld) [#/Vol] 285 10*3/uL Normal 150-450 [facility] Comment on above: Performed By: #### L 501.9940, L100.0100, L500.4050 ####[facility] [address] [place], [address] RBC (Bld) [#/Vol] 3.94 10*6/uL Low 4.6-6.2 [facility] Comment on above: Performed By: #### L 501.9940, L100.0100, L500.4050 ####[facility] [address] [place], [address] RDW SD 41.3 fl Normal 35.1-43.9 [facility] Comment on above: Performed By: #### L 501.9940, L100.0100, L500.4050 ####[facility] [address] [place], [address] WBC (Bld) [#/Vol] 3.3 10*3/uL Low 4.4-11.0 [facility] Comment on above: Performed By: #### L 501.9940, L100.0100, L500.4050 ####[facility] [address] [place], [address] Comprehensive Metabolic Prof ilon 04-17-2025 Albumin [Mass/Vol] 3.7 g/dL Normal 3.4-4.8 [facility] Comment on above: Performed By: #### L 501.9940, L100.0100, L500.4050 ####[facility] [address] [place], [address] Albumin/Globulin [Mass ratio] 1.2 {ratio} Normal 0.9-2.4 [facility] Comment on above: Performed By: #### L 501.9940, L100.0100, L500.4050 ####[facility] [address] [place], [address] ALK PHOS 146 U/L High 40-129 [facility] Comment on above: Performed By: #### L 501.9940, L100.0100, L500.4050 ####[facility] [address] [place], [address] ALT [Catalytic activity/Vol] 9 U/L Normal <=46 [facility] Comment on above: Performed By: #### L 501.9940, L100.0100, L500.4050 ####[facility] [address] [place], [address] AST [Catalytic activity/Vol] 17 U/L Normal <=37 [facility] Comment on above: Performed By: #### L 501.9940, L100.0100, L500.4050 ####[facility] [address] [place], [address] Bilirubin [Mass/Vol] 0.29 mg/dL Normal 0.00-1.30 [facility] Comment on above: Performed By: #### L 501.9940, L100.0100, L500.4050 ####[facility] [address] [place], [address] BUN/CRE 11.7 RATIO Normal 10-20 [facility] Comment on above: Performed By: #### L 501.9940, L100.0100, L500.4050 ####[facility] [address] [place], [address] Calcium [Mass/Vol] 9.2 mg/dL Normal 7.6-11.0 [facility] Comment on above: Performed By: #### L 501.9940, L100.0100, L500.4050 ####[facility] [address] [place], [address] Chloride [Moles/Vol] 104 mmol/L Normal 98-108 [facility] Comment on above: Performed By: #### L 501.9940, L100.0100, L500.4050 ####[facility] [address] [place], [address] CO2 [Moles/Vol] 24.3 mmol/L Normal 21.0-32.0 [facility] Comment on above: Performed By: #### L 501.9940, L100.0100, L500.4050 ####[facility] [address] [place], [address] Creatinine [Mass/Vol] 0.71 mg/dL Normal 0.70-1.20 [facility] Comment on above: Performed By: #### L 501.9940, L100.0100, L500.4050 ####[facility] [address] [place], [address] ECRCL 135.37 ml/min Normal 50-250 [facility] Comment on above: Performed By: #### L 501.9940, L100.0100, L500.4050 ####[facility] [address] [place], [address] GAP 9 Normal 5-15 [facility] Comment on above: Performed By: #### L 501.9940, L100.0100, L500.4050 ####[facility] [address] [place], [address] GFR/1.73 sq M.predicted among non-blacks MDRD (S/P/Bld) [Vol rate/Area] 104 mL/min/{1.73_m2} Normal >60 [facility] Comment on above: Result Comment: mL/m in/1.73m2 CKD-EPI Creatinine Equation (2020) Performed By: #### L 501.9940, L100.0100, L500.4050 ####[facility] [address] [place], [address] Globulin (S) [Mass/Vol] 3.0 g/dL Normal 2.2-4.2 [facility] Comment on above: Performed By: #### L 501.9940, L100.0100, L500.4050 ####[facility] [address] [place], [address] Glucose [Mass/Vol] 97 mg/dL Normal 70-99 [facility] Comment on above: Performed By: #### L 501.9940, L100.0100, L500.4050 ####[facility] [address] [place], [address] Potassium [Moles/Vol] 4.1 mmol/L Normal 3.3-5.1 [facility] Comment on above: Performed By: #### L 501.9940, L100.0100, L500.4050 ####[facility] [address] [place], [address] Sodium [Moles/Vol] 138 mmol/L Normal 133-145 [facility] Comment on above: Performed By: #### L 501.9940, L100.0100, L500.4050 ####[facility] [address] [place], [address] T PROT 6.7 g/dL Normal 5.9-8.4 [facility] Comment on above: Performed By: #### L 501.9940, L100.0100, L500.4050 ####[facility] [address] [place], [address] Urea nitrogen [Mass/Vol] 8 mg/dL Normal 4-19 [facility] Comment on above: Performed By: #### L 501.9940, L100.0100, L500.4050 ####[facility] [address] [place], [address] Oncology Visit Reporton 07-27 Oncology Visit Report Normal [facility] PSA,Total- Diagnosticon 07-27 PSA, DIAGNOSTIC 4.48 ng/mL High 0.00-4.00 [facility] Comment on above: Result Comment: This test was performed using the [employer] tPSAmethod. Measured values of a patient??sample can varydepending on the testing procedure used. PSA valuesdetermined on patient samples by different testingprocedures cannot be used interchangeably. If there is achange in PSA assays while monitoring therapy, sequentialtesting should be performed to confirm baseline values. Performed By: #### L 501.9940, L100.0100, L500.4050 ####[facility] [address] [place], [address] Radiation Oncology Visiton 0 08-12-2024 Radiation Oncology Visit Normal [facility] Cardiology Visit Reporton Cardiology Visit Report Normal [facility] 07-13-2024 U Creatinine 206.7 mg/dL Normal [facility] Comment on above: Performed By: #### M ALBR #### [place] [address] [address] U Microalb 21.8 mg/L Normal [facility] Comment on above: Performed By: #### M ALBR #### [place] [address] [address] U Ratio Alb/Cre 11 mg/G Normal 0-30 [facility] Comment on above: Performed By: #### M ALBR #### [facility] [address] [place], [place] [address] CBC W/Diff, Automatedon 03-0 6-2024 Absolute Lymph 1.33 X10 3/uL Normal 0.83-4.51 [facility] Comment on above: Performed By: #### L 500.4050, L501.9940, L100.0100 ####[facility] [address] [place], [address] Absolute Neut 1.7 X10 3/uL Low 2.0-7.7 [facility] Comment on above: Performed By: #### L 500.4050, L501.9940, L100.0100 ####[facility] [address] [place], [address] Basophils/100 WBC (Bld) 0.8 % Normal 0-1 [facility] Comment on above: Performed By: #### L 500.4050, L501.9940, L100.0100 ####[facility] [address] [place], [address] Eosinophils/100 WBC (Bld) 3.6 % Normal 0-5 [facility] Comment on above: Performed By: #### L 500.4050, L501.9940, L100.0100 ####[facility] [address] [place], [address] Erythrocyte distribution width (RBC) [Ratio] 13.1 % Normal 11.6-14.6 [facility] Comment on above: Performed By: #### L 500.4050, L501.9940, L100.0100 ####[facility] [address] [place], [address] Hematocrit (Bld) [Volume fraction] 37.3 % Low 40-54 [facility] Comment on above: Performed By: #### L 500.4050, L501.9940, L100.0100 ####[facility] [address] [place], [address] Hemoglobin (Bld) [Mass/Vol] 12.3 g/dL Low 13.0-16.5 [facility] Comment on above: Performed By: #### L 500.4050, L501.9940, L100.0100 ####[facility] [address] [place], [address] IG% 0.000 Normal 0.0-0.9 [facility] Comment on above: Result Comment: IG% - Immature Granulocytes (promyelocytes, myelocytes andmetamyelocytes) > 1% indicates that a LEFT SHIFT is Present. Performed By: #### L 500.4050, L501.9940, L100.0100 ####[facility] [address] [place], [address] Lymphocytes/100 WBC (Bld) 37.3 % Normal 19-41 [facility] Comment on above: Performed By: #### L 500.4050, L501.9940, L100.0100 ####[facility] [address] [place], [address] MCH (RBC) [Entitic mass] 28.7 pg Normal 27.0-32.0 [facility] Comment on above: Performed By: #### L 500.4050, L501.9940, L100.0100 ####[facility] [address] [place], [address] MCHC (RBC) [Mass/Vol] 33.0 g/dL Normal 32-36 [facility] Comment on above: Performed By: #### L 500.4050, L501.9940, L100.0100 ####[facility] [address] [place], [address] MCV (RBC) [Entitic vol] 87.1 fL Normal 80-94 [facility] Comment on above: Performed By: #### L 500.4050, L501.9940, L100.0100 ####[facility] [address] [place], [address] Monocytes/100 WBC (Bld) 10.6 % High 0-10 [facility] Comment on above: Performed By: #### L 500.4050, L501.9940, L100.0100 ####[facility] [address] [place], [address] Neutrophils/100 WBC (Bld) 47.7 % Normal 47-70 [facility] Comment on above: Performed By: #### L 500.4050, L501.9940, L100.0100 ####[facility] [address] [place], [address] Nucleated RBC (Bld) [#/Vol] 0 10*3/uL Normal 0-5 [facility] Comment on above: Performed By: #### L 500.4050, L501.9940, L100.0100 ####[facility] [address] [place], [address] Platelet mean volume (Bld) [Entitic vol] 9.3 fL Normal 6.2-12.0 [facility] Comment on above: Performed By: #### L 500.4050, L501.9940, L100.0100 ####[facility] [address] [place], [address] Platelets (Bld) [#/Vol] 295 10*3/uL Normal 150-450 [facility] Comment on above: Performed By: #### L 500.4050, L501.9940, L100.0100 ####[facility] [address] [place], [address] RBC (Bld) [#/Vol] 4.28 10*6/uL Low 4.6-6.2 [facility] Comment on above: Performed By: #### L 500.4050, L501.9940, L100.0100 ####[facility] [address] [place], [address] RDW SD 41.0 fl Normal 35.1-43.9 [facility] Comment on above: Performed By: #### L 500.4050, L501.9940, L100.0100 ####[facility] [address] [place], [address] WBC (Bld) [#/Vol] 3.6 10*3/uL Low 4.4-11.0 [facility] Comment on above: Performed By: #### L 500.4050, L501.9940, L100.0100 ####[facility] [address] [place], [address] Comprehensive Metabolic Prof [facility] 07-01-2024 Albumin [Mass/Vol] 3.7 g/dL Normal 3.4-4.8 [facility] Comment on above: Performed By: #### L 500.4050, L501.9940, L100.0100 ####[facility] [address] [place], [address] Albumin/Globulin [Mass ratio] 1.2 {ratio} Normal 0.9-2.4 [facility] Comment on above: Performed By: #### L 500.4050, L501.9940, L100.0100 ####[facility] [address] [place], [address] ALK PHOS 117 U/L Normal 40-129 [facility] Comment on above: Performed By: #### L 500.4050, L501.9940, L100.0100 ####[facility] [address] [place], [address] ALT [Catalytic activity/Vol] 14 U/L Normal <=46 [facility] Comment on above: Performed By: #### L 500.4050, L501.9940, L100.0100 ####[facility] [address] [place], [address] AST [Catalytic activity/Vol] 18 U/L Normal <=37 [facility] Comment on above: Performed By: #### L 500.4050, L501.9940, L100.0100 ####[facility] [address] [place], [address] Bilirubin [Mass/Vol] 0.18 mg/dL Normal 0.00-1.30 [facility] Comment on above: Performed By: #### L 500.4050, L501.9940, L100.0100 ####[facility] [address] [place], [address] BUN/CRE 19.5 RATIO Normal 10-20 [facility] Comment on above: Performed By: #### L 500.4050, L501.9940, L100.0100 ####[facility] [address] [place], [address] Calcium [Mass/Vol] 9.2 mg/dL Normal 7.6-11.0 [facility] Comment on above: Performed By: #### L 500.4050, L501.9940, L100.0100 ####[facility] [address] [place], [address] Chloride [Moles/Vol] 106 mmol/L Normal 98-108 [facility] Comment on above: Performed By: #### L 500.4050, L501.9940, L100.0100 ####[facility] [address] [place], [address] CO2 [Moles/Vol] 25.3 mmol/L Normal 21.0-32.0 [facility] Comment on above: Performed By: #### L 500.4050, L501.9940, L100.0100 ####[facility] [address] [place], [address] Creatinine [Mass/Vol] 0.80 mg/dL Normal 0.70-1.20 [facility] Comment on above: Performed By: #### L 500.4050, L501.9940, L100.0100 ####[facility] [address] [place], [address] ECRCL 125.08 ml/min Normal 50-250 [facility] Comment on above: Performed By: #### L 500.4050, L501.9940, L100.0100 ####[facility] [address] [place], [address] GAP 11 Normal 5-15 [facility] Comment on above: Performed By: #### L 500.4050, L501.9940, L100.0100 ####[facility] [address] [place], [address] GFR/1.73 sq M.predicted among non-blacks MDRD (S/P/Bld) [Vol rate/Area] 101 mL/min/{1.73_m2} Normal >60 [facility] Comment on above: Result Comment: mL/m in/1.73m2 CKD-EPI Creatinine Equation (2020) Performed By: #### L 500.4050, L501.9940, L100.0100 ####[facility] [address] [place], [address] Globulin (S) [Mass/Vol] 3.1 g/dL Normal 2.2-4.2 [facility] Comment on above: Performed By: #### L 500.4050, L501.9940, L100.0100 ####[facility] [address] [place], [address] Glucose [Mass/Vol] 110 mg/dL High 70-99 [facility] Comment on above: Performed By: #### L 500.4050, L501.9940, L100.0100 ####[facility] [address] [place], [address] Potassium [Moles/Vol] 4.0 mmol/L Normal 3.3-5.1 [facility] Comment on above: Performed By: #### L 500.4050, L501.9940, L100.0100 ####[facility] [address] [place], [address] Sodium [Moles/Vol] 142 mmol/L Normal 133-145 [facility] Comment on above: Performed By: #### L 500.4050, L501.9940, L100.0100 ####[facility] [address] [place], [address] T PROT 6.8 g/dL Normal 5.9-8.4 [facility] Comment on above: Performed By: #### L 500.4050, L501.9940, L100.0100 ####[facility] [address] [place], [address] Urea nitrogen [Mass/Vol] 16 mg/dL Normal 4-19 [facility] Comment on above: Performed By: #### L 500.4050, L501.9940, L100.0100 ####[facility] [address] [place], [address] Oncology Visit Reporton 0 Oncology Visit Report Normal [facility] PSA,Total- Diagnosticon PSA, DIAGNOSTIC 2.85 ng/mL Normal 0.00-4.00 [facility] Comment on above: Result Comment: This test was performed using the [employer] tPSAmethod. Measured values of a patient??sample can varydepending on the testing procedure used. PSA valuesdetermined on patient samples by different testingprocedures cannot be used interchangeably. If there is achange in PSA assays while monitoring therapy, sequentialtesting should be performed to confirm baseline values. Performed By: #### L 500.4050, L501.9940, L100.0100 ####[facility] [address] [place], [address] Oncology Visit Reporton Oncology Visit Report Normal [facility] Radiation Oncology Visiton 0 05-31-2024 Radiation Oncology Visit Normal [facility] Bone Scan Whole Bodyon 05-28 Bone Scan Whole Body Normal [facility] Pelvis W/WO Contraston 05-25 Pelvis W/WO Contrast Normal [facility] Spine Lumbar W/WO Contraston 05-25-2024 Spine Lumbar W/WO Contrast Normal [facility] Urine Cultureon 05-25-2024 URC Culture exhibits no growth. Normal [facility] Comment on above: Performed By: #### L 400.0001, M100.2200 ####[facility] [address] [place], [address] Bilirubin Test strip Ql (U)O rdered By: Florencia Sampson on 05-24-2024 Bilirubin Ql (U) Negative Negative [facility] CBC W/Diff, Automatedon 04-29 Absolute Lymph 0.96 X10 3/uL Normal 0.83-4.51 [facility] Comment on above: Performed By: #### L 501.9940, L100.0100, L500.4050 ####[facility] [address] [place], [address] Absolute Neut 3.4 X10 3/uL Normal 2.0-7.7 [facility] Comment on above: Performed By: #### L 501.9940, L100.0100, L500.4050 ####[facility] [address] [place], [address] Basophils/100 WBC (Bld) 0.6 % Normal 0-1 [facility] Comment on above: Performed By: #### L 501.9940, L100.0100, L500.4050 ####[facility] [address] [place], [address] Eosinophils/100 WBC (Bld) 1.1 % Normal 0-5 [facility] Comment on above: Performed By: #### L 501.9940, L100.0100, L500.4050 ####[facility] [address] [place], [address] Erythrocyte distribution width (RBC) [Ratio] 13.3 % Normal 11.6-14.6 [facility] Comment on above: Performed By: #### L 501.9940, L100.0100, L500.4050 ####[facility] [address] [place], [address] Hematocrit (Bld) [Volume fraction] 40.0 % Normal 40-54 [facility] Comment on above: Performed By: #### L 501.9940, L100.0100, L500.4050 ####[facility] [address] [place], [address] Hemoglobin (Bld) [Mass/Vol] 13.2 g/dL Normal 13.0-16.5 [facility] Comment on above: Performed By: #### L 501.9940, L100.0100, L500.4050 ####[facility] [address] [place], [address] IG% 0.200 Normal 0.0-0.9 [facility] Comment on above: Result Comment: IG% - Immature Granulocytes (promyelocytes, myelocytes andmetamyelocytes) > 1% indicates that a LEFT SHIFT is Present. Performed By: #### L 501.9940, L100.0100, L500.4050 ####[facility] [address] [place], [address] Lymphocytes/100 WBC (Bld) 20.4 % Normal 19-41 [facility] Comment on above: Performed By: #### L 501.9940, L100.0100, L500.4050 ####[facility] [address] [place], [address] MCH (RBC) [Entitic mass] 29.1 pg Normal 27.0-32.0 [facility] Comment on above: Performed By: #### L 501.9940, L100.0100, L500.4050 ####[facility] [address] [place], [address] MCHC (RBC) [Mass/Vol] 33.0 g/dL Normal 32-36 [facility] Comment on above: Performed By: #### L 501.9940, L100.0100, L500.4050 ####[facility] [address] [place], [address] MCV (RBC) [Entitic vol] 88.1 fL Normal 80-94 [facility] Comment on above: Performed By: #### L 501.9940, L100.0100, L500.4050 ####[facility] [address] [place], [address] Monocytes/100 WBC (Bld) 6.6 % Normal 0-10 [facility] Comment on above: Performed By: #### L 501.9940, L100.0100, L500.4050 ####[facility] [address] [place], [address] Neutrophils/100 WBC (Bld) 71.1 % High 47-70 [facility] Comment on above: Performed By: #### L 501.9940, L100.0100, L500.4050 ####[facility] [address] [place], [address] Nucleated RBC (Bld) [#/Vol] 0 10*3/uL Normal 0-5 [facility] Comment on above: Performed By: #### L 501.9940, L100.0100, L500.4050 ####[facility] [address] [place], [address] Platelet mean volume (Bld) [Entitic vol] 9.2 fL Normal 6.2-12.0 [facility] Comment on above: Performed By: #### L 501.9940, L100.0100, L500.4050 ####[facility] [address] [place], [address] Platelets (Bld) [#/Vol] 257 10*3/uL Normal 150-450 [facility] Comment on above: Performed By: #### L 501.9940, L100.0100, L500.4050 ####[facility] [address] [place], [address] RBC (Bld) [#/Vol] 4.54 10*6/uL Low 4.6-6.2 [facility] Comment on above: Performed By: #### L 501.9940, L100.0100, L500.4050 ####[facility] [address] [place], [address] RDW SD 43.2 fl Normal 35.1-43.9 [facility] Comment on above: Performed By: #### L 501.9940, L100.0100, L500.4050 ####[facility] [address] [place], [address] WBC (Bld) [#/Vol] 4.7 10*3/uL Normal 4.4-11.0 [facility] Comment on above: Performed By: #### L 501.9940, L100.0100, L500.4050 ####[facility] [address] [place], [address] Comprehensive Metabolic Prof iljovita 05-24-2024 Albumin [Mass/Vol] 3.3 g/dL Normal 3.2-5.0 [facility] Comment on above: Performed By: #### L 501.9940, L100.0100, L500.4050 ####[facility] [address] [place], [address] Albumin/Globulin [Mass ratio] 0.9 {ratio} Normal 0.9-2.4 [facility] Comment on above: Performed By: #### L 501.9940, L100.0100, L500.4050 ####[facility] [address] [place], [address] ALK P 107 U/L Normal 45-117 [facility] Comment on above: Performed By: #### L 501.9940, L100.0100, L500.4050 ####[facility] [address] [place], [address] ALT [Catalytic activity/Vol] 22 U/L Normal 16-61 [facility] Comment on above: Performed By: #### L 501.9940, L100.0100, L500.4050 ####[facility] [address] [place], [address] AST [Catalytic activity/Vol] 12 U/L Low 15-37 [facility] Comment on above: Performed By: #### L 501.9940, L100.0100, L500.4050 ####[facility] [address] [place], [address] Bilirubin [Mass/Vol] 0.50 mg/dL Normal 0.20-1.00 [facility] Comment on above: Result Comment: For patients on eltrombopag therapy, use of Dimension [place] TBIL is not recommended. Performed By: #### L 501.9940, L100.0100, L500.4050 ####[facility] [address] [place], [address] BUN/CRE 23.4 RATIO High 10-20 [facility] Comment on above: Performed By: #### L 501.9940, L100.0100, L500.4050 ####[facility] [address] [place], [address] CA,Total 9.5 mg/dL Normal 8.5-10.1 [facility] Comment on above: Performed By: #### L 501.9940, L100.0100, L500.4050 ####[facility] [address] [place], [address] Chloride [Moles/Vol] 109 mmol/L High 98-107 [facility] Comment on above: Performed By: #### L 501.9940, L100.0100, L500.4050 ####[facility] [address] [place], [address] CO2 [Moles/Vol] 26.0 mmol/L Normal 21.0-32.0 [facility] Comment on above: Performed By: #### L 501.9940, L100.0100, L500.4050 ####[facility] [address] [place], [address] Creatinine [Mass/Vol] 0.90 mg/dL Normal 0.70-1.30 [facility] Comment on above: Result Comment: The validity of the calculated GFR GFRAA in patients over70 years has not been determined. Clinical correlation isessential. Performed By: #### L 501.9940, L100.0100, L500.4050 ####[facility] [address] [place], [address] ECRCL 111.90 ml/min Normal [facility] Comment on above: Performed By: #### L 501.9940, L100.0100, L500.4050 ####[facility] [address] [place], [address] EST GFR - AA 111 mL/min Normal >60 [facility] Comment on above: Result Comment: Afri can [place] GFR Calc Performed By: #### L 501.9940, L100.0100, L500.4050 ####[facility] [address] [place], [address] GAP 5 Normal 5-15 [facility] Comment on above: Performed By: #### L 501.9940, L100.0100, L500.4050 ####[facility] [address] [place], [address] GFR/1.73 sq M.predicted among non-blacks MDRD (S/P/Bld) [Vol rate/Area] 92 mL/min/{1.73_m2} Normal >60 [facility] Comment on above: Result Comment: Non- GFR Calc Performed By: #### L 501.9940, L100.0100, L500.4050 ####[facility] [address] [place], [address] Globulin (S) [Mass/Vol] 3.8 g/dL Normal 2.2-4.2 [facility] Comment on above: Performed By: #### L 501.9940, L100.0100, L500.4050 ####[facility] [address] [place], [address] Glucose [Mass/Vol] 116 mg/dL High 74-106 [facility] Comment on above: Result Comment: Fast ing Glucose result from 100 to 125 mg/dLsuggests IMPAIRED HOMEOSTASIS per A.D.A. criteria. Performed By: #### L 501.9940, L100.0100, L500.4050 ####[facility] [address] [place], [address] Potassium [Moles/Vol] 3.9 mmol/L Normal 3.5-5.1 [facility] Comment on above: Performed By: #### L 501.9940, L100.0100, L500.4050 ####[facility] [address] [place], [address] Sodium [Moles/Vol] 140 mmol/L Normal 136-145 [facility] Comment on above: Performed By: #### L 501.9940, L100.0100, L500.4050 ####[facility] [address] [place], [address] T PROT 7.1 g/dL Normal 6.4-8.2 [facility] Comment on above: Performed By: #### L 501.9940, L100.0100, L500.4050 ####[facility] [address] [place], [address] Urea nitrogen [Mass/Vol] 21 mg/dL High 7-18 [facility] Comment on above: Performed By: #### L 501.9940, L100.0100, L500.4050 ####[facility] [address] [place], [address] Ketones Test strip Ql (U)Ord ered By: Florencia Sampson on 05-24-2024 Ketones Ql (U) Negative Negative [facility] Lumbar Spine 2 or 3 Viewson 05-24-2024 Lumbar Spine 2 or 3 Views Normal [facility] Microscopic analysis of urin e for red blood cells (RBC)Ordered By: Florencia Sampson on 05-24-2024 Microscopic analysis of urine for red blood cells (RBC) 0 SEEN /hpf 0-5 [facility] Mucus LM Ql (Urine sed)Order ed By: Florencia Sampson on 05-24-2024 Mucus Ql (Urine sed) 0 SEEN /hpf [facility] Nitrite Test strip Ql (U)Ord ered By: Florencia Sampson on 05-24-2024 Nitrite Ql (U) Negative Negative [facility] Oncology Visit Reporton 04-29 Oncology Visit Report Normal [facility] PSA,Total- Diagnosticon 04-29 PSA, DIAGNOSTIC 3.76 ng/mL Normal 0.0-4.0 [facility] Comment on above: Result Comment: This test was performed using the TPSA assay method for [employer] [place] chemistry system. Values obtained with differentassay methods cannot be used interchangably.When changing PSA assays in the course of monitoring apatient, additional sequential testing should be carriedout to confirm baseline values. Performed By: #### L 501.9940, L100.0100, L500.4050 ####[facility] [address] [place], [address] Protein Test strip Ql (U)Ord ered By: Florencia Sampson on 05-24-2024 Protein Ql (U) 30 mg/dl High Negative [facility] Squamous epithelial cells de tection in urine sediment by light microscopyOrdered By: Florencia Sampson on 05-24-2024 Epithelial cells.squamous LM Ql (Urine sed) 0 SEEN /hpf 0-5 [facility] Urinalysis, Completeon 05-24 BACTERIA 2+ /hpf Normal None Seen [facility] Comment on above: Order Comment: MK CTOR TO SPECIFY Performed By: #### L 400.0001, ####[facility] [address] [place], [address] WBC 10-25 SEEN Normal 0-5 [facility] Comment on above: Order Comment: MK CTOR TO SPECIFY Performed By: #### L 400.0001, ####[facility] [address] [place], [address] EPI,SQUAMOUS 0 SEEN Normal 0-5 [facility] Comment on above: Order Comment: MK CTOR TO SPECIFY Performed By: #### L 400.0001, ####[facility] [address] [place], [address] Mucus Ql (Urine sed) 0 SEEN Normal [facility] Comment on above: Order Comment: MK CTOR TO SPECIFY Performed By: #### L 400.0001, M1.0 ####[facility] [address] [place], [address] RBC 0 SEEN Normal 0-5 [facility] Comment on above: Order Comment: COLLE CTOR TO SPECIFY Performed By: #### L 400.0001, M100.0 ####[facility] [address] [place], [address] Urine clarityOrdered By: Donna Sampson on 05-24-2024 Clarity (U) Clear Clear [facility] Urine color determinationOrd ered By: Florencia Sampson on 05-24-2024 Color (U) Yellow Yellow [facility] Urine cultureOrdered By: Donna Sampson on 05-24-2024 Bacteria identified Cx Nom (U) Culture exhibits no growth. [facility] Urine glucose detectionOrder ed By: Florencia Sampson on 05-24-2024 Glucose Ql (U) Normal mg/dl Normal [facility] Urine leukocyte esterase det ection by dipstickOrdered By: Florencia Sampson on 05-24-2024 Leukocyte esterase Test strip Ql (U) Negative Negative [facility] Urine pHOrdered By: Florencia kim on 05-24-2024 pH (U) 6.0 [pH] 5.0 - 8.0 [facility] Urine sediment bacteria coun t by microscopy (number/high power field)Ordered By: Florencia Samposn on 05-24-2024 Bacteria LM.HPF (Urine sed) [#/Area] 2 /[HPF] None Seen [facility] Urine specific gravity measu rementOrdered By: Florencia Sampson on 05-24-2024 Specific gravity (U) [Rel density] 1.020 1.002-1.030 [facility] Urine urobilinogen measureme ntOrdered By: Florencia Sampson on 05-24-2024 Urobilinogen Ql (U) Normal mg/dl Normal [facility] White blood cell countOrdere d By: Florencia Sampson on 05-24-2024 White blood cell count 10-25 SEEN /hpf 0-5 [facility] 12 Lead EKGon 12-20-2024 12 Lead EKG Normal [facility] CBC W/Diff, Automatedon 12- Absolute Lymph 1.17 X10 3/uL Normal 0.83-4.51 [facility] Comment on above: Performed By: #### L 501.9940, L500.4050, L100.0100 ####[facility] [address] [place], [address] Absolute Neut 2.2 X10 3/uL Normal 2.0-7.7 [facility] Comment on above: Performed By: #### L 501.9940, L500.4050, L100.0100 ####[facility] [address] [place], [address] Basophils/100 WBC (Bld) 0.8 % Normal 0-1 [facility] Comment on above: Performed By: #### L 501.9940, L500.4050, L100.0100 ####[facility] [address] [place], [address] Eosinophils/100 WBC (Bld) 1.1 % Normal 0-5 [facility] Comment on above: Performed By: #### L 501.9940, L500.4050, L100.0100 ####[facility] [address] [place], [address] Erythrocyte distribution width (RBC) [Ratio] 13.2 % Normal 11.6-14.6 [facility] Comment on above: Performed By: #### L 501.9940, L500.4050, L100.0100 ####[facility] [address] [place], [address] Hematocrit (Bld) [Volume fraction] 40.1 % Normal 40-54 [facility] Comment on above: Performed By: #### L 501.9940, L500.4050, L100.0100 ####[facility] [address] [place], [address] Hemoglobin (Bld) [Mass/Vol] 13.2 g/dL Normal 13.0-16.5 [facility] Comment on above: Performed By: #### L 501.9940, L500.4050, L100.0100 ####[facility] [address] [place], [address] IG% 0.300 Normal 0.0-0.9 [facility] Comment on above: Result Comment: IG% - Immature Granulocytes (promyelocytes, myelocytes andmetamyelocytes) > 1% indicates that a LEFT SHIFT is Present. Performed By: #### L 501.9940, L500.4050, L100.0100 ####[facility] [address] [place], [address] Lymphocytes/100 WBC (Bld) 31.1 % Normal 19-41 [facility] Comment on above: Performed By: #### L 501.9940, L500.4050, L100.0100 ####[facility] [address] [place], [address] MCH (RBC) [Entitic mass] 29.4 pg Normal 27.0-32.0 [facility] Comment on above: Performed By: #### L 501.9940, L500.4050, L100.0100 ####[facility] [address] [place], [address] MCHC (RBC) [Mass/Vol] 32.9 g/dL Normal 32-36 [facility] Comment on above: Performed By: #### L 501.9940, L500.4050, L100.0100 ####[facility] [address] [place], [address] MCV (RBC) [Entitic vol] 89.3 fL Normal 80-94 [facility] Comment on above: Performed By: #### L 501.9940, L500.4050, L100.0100 ####[facility] [address] [place], [address] Monocytes/100 WBC (Bld) 8.5 % Normal 0-10 [facility] Comment on above: Performed By: #### L 501.9940, L500.4050, L100.0100 ####[facility] [address] [place], [address] Neutrophils/100 WBC (Bld) 58.2 % Normal 47-70 [facility] Comment on above: Performed By: #### L 501.9940, L500.4050, L100.0100 ####[facility] [address] [place], [address] Nucleated RBC (Bld) [#/Vol] 0 10*3/uL Normal 0-5 [facility] Comment on above: Performed By: #### L 501.9940, L500.4050, L100.0100 ####[facility] [address] [place], [address] Platelet mean volume (Bld) [Entitic vol] 9.6 fL Normal 6.2-12.0 [facility] Comment on above: Performed By: #### L 501.9940, L500.4050, L100.0100 ####[facility] [facility] [address] [place], [address] Platelets (Bld) [#/Vol] 262 10*3/uL Normal 150-450 [facility] Comment on above: Performed By: #### L 501.9940, L500.4050, L100.0100 ####[facility] [address] [place], [address] RBC (Bld) [#/Vol] 4.49 10*6/uL Low 4.6-6.2 [facility] Comment on above: Performed By: #### L 501.9940, L500.4050, L100.0100 ####[facility] [address] [place], [address] RDW SD 43.2 fl Normal 35.1-43.9 [facility] Comment on above: Performed By: #### L 501.9940, L500.4050, L100.0100 ####[facility] [address] [place], [address] WBC (Bld) [#/Vol] 3.8 10*3/uL Low 4.4-11.0 [facility] Comment on above: Performed By: #### L 501.9940, L500.4050, L100.0100 ####[facility] [address] [place], [address] [facility] 04-15-2024 Albumin [Mass/Vol] 3.3 g/dL Normal 3.2-5.0 [facility] Comment on above: Performed By: #### L 501.9940, L500.4050, L100.0100 ####[facility] [address] [place], [address] Albumin/Globulin [Mass ratio] 0.9 {ratio} Normal 0.9-2.4 [facility] Comment on above: Performed By: #### L 501.9940, L500.4050, L100.0100 ####[facility] [address] [place], [address] ALK P 56 U/L Normal 45-117 [facility] Comment on above: Performed By: #### L 501.9940, L500.4050, L100.0100 ####[facility] [address] [place], [address] ALT [Catalytic activity/Vol] 29 U/L Normal 16-61 [facility] Comment on above: Performed By: #### L 501.9940, L500.4050, L100.0100 ####[facility] [address] [place], [address] AST [Catalytic activity/Vol] 12 U/L Low 15-37 [facility] Comment on above: Performed By: #### L 501.9940, L500.4050, L100.0100 ####[facility] [address] [place], [address] Bilirubin [Mass/Vol] 0.50 mg/dL Normal 0.20-1.00 [facility] Comment on above: Result Comment: For patients on eltrombopag therapy, use of Dimension [place] TBIL is not recommended. Performed By: #### L 501.9940, L500.4050, L100.0100 ####[facility] [address] [place], [address] BUN/CRE 23.8 RATIO High 10-20 [facility] Comment on above: Performed By: #### L 501.9940, L500.4050, L100.0100 ####[facility] [address] [place], [address] CA,Total 9.2 mg/dL Normal 8.5-10.1 [facility] Comment on above: Performed By: #### L 501.9940, L500.4050, L100.0100 ####[facility] [address] [place], [address] Chloride [Moles/Vol] 107 mmol/L Normal 98-107 [facility] Comment on above: Performed By: #### L 501.9940, L500.4050, L100.0100 ####[facility] [address] [place], [address] CO2 [Moles/Vol] 29.0 mmol/L Normal 21.0-32.0 [facility] Comment on above: Performed By: #### L 501.9940, L500.4050, L100.0100 ####[facility] [address] [place], [address] Creatinine [Mass/Vol] 0.80 mg/dL Normal 0.70-1.30 [facility] Comment on above: Result Comment: The validity of the calculated GFR GFRAA in patients over70 years has not been determined. Clinical correlation isessential. Performed By: #### L 501.9940, L500.4050, L100.0100 ####[facility] [address] [place], [address] ECRCL 124.82 ml/min Normal [facility] Comment on above: Performed By: #### L 501.9940, L500.4050, L100.0100 ####[facility] [address] [place], [address] EST GFR - AA 127 mL/min Normal >60 [facility] Comment on above: Result Comment: Afri can [place] GFR Calc Performed By: #### L 501.9940, L500.4050, L100.0100 ####[facility] [address] [place], [address] GAP 4 Low 5-15 [facility] Comment on above: Performed By: #### L 501.9940, L500.4050, L100.0100 ####[facility] [address] [place], [address] GFR/1.73 sq M.predicted among non-blacks MDRD (S/P/Bld) [Vol rate/Area] 105 mL/min/{1.73_m2} Normal >60 [facility] Comment on above: Result Comment: Non- GFR Calc Performed By: #### L 501.9940, L500.4050, L100.0100 ####[facility] [address] [place], [address] Globulin (S) [Mass/Vol] 3.7 g/dL Normal 2.2-4.2 [facility] Comment on above: Performed By: #### L 501.9940, L500.4050, L100.0100 ####[facility] [address] [place], [address] Glucose [Mass/Vol] 92 mg/dL Normal 74-106 [facility] Comment on above: Performed By: #### L 501.9940, L500.4050, L100.0100 ####[facility] [address] [place], [address] Potassium [Moles/Vol] 4.0 mmol/L Normal 3.5-5.1 [facility] Comment on above: Performed By: #### L 501.9940, L500.4050, L100.0100 ####[facility] [address] [place], [address] Sodium [Moles/Vol] 140 mmol/L Normal 136-145 [facility] Comment on above: Performed By: #### L 501.9940, L500.4050, L100.0100 ####[facility] [address] [place], [address] T PROT 7.0 g/dL Normal 6.4-8.2 [facility] Comment on above: Performed By: #### L 501.9940, L500.4050, L100.0100 ####[facility] [address] [place], [address] Urea nitrogen [Mass/Vol] 19 mg/dL High 7-18 [facility] Comment on above: Performed By: #### L 501.9940, L500.4050, L100.0100 ####[facility] [address] [place], [address] Oncology Visit Reporton 03-28 Oncology Visit Report Normal [facility] PSA,Total- Diagnosticon 03-28 PSA, DIAGNOSTIC 1.96 ng/mL Normal 0.0-4.0 [facility] Comment on above: Result Comment: This test was performed using the TPSA assay method for [facility] chemistry system. Values obtained with differentassay methods cannot be used interchangably.When changing PSA assays in the course of monitoring apatient, additional sequential testing should be carriedout to confirm baseline values. Performed By: #### L 501.9940, L500.4050, L100.0100 ####[facility] [address] [place], [address] CT Chest, Abd, Pel w/Contras ton 03-31-2024 CT Chest, Abd, Pel w/Contrast Normal [facility] CBC W/Diff, Automatedon 02-26 Absolute Lymph 0.83 X10 3/uL Normal 0.83-4.51 [facility] Comment on above: Performed By: #### L 501.9940, L100.0100, L500.4050 ####[facility] [address] [place], [address] Absolute Neut 2.3 X10 3/uL Normal 2.0-7.7 [facility] Comment on above: Performed By: #### L 501.9940, L100.0100, L500.4050 ####[facility] [address] [place], [address] Basophils/100 WBC (Bld) 0.8 % Normal 0-1 [facility] Comment on above: Performed By: #### L 501.9940, L100.0100, L500.4050 ####[facility] [address] [place], [address] Eosinophils/100 WBC (Bld) 2.8 % Normal 0-5 [facility] Comment on above: Performed By: #### L 501.9940, L100.0100, L500.4050 ####[facility] [address] [place], [address] Erythrocyte distribution width (RBC) [Ratio] 12.6 % Normal 11.6-14.6 [facility] Comment on above: Performed By: #### L 501.9940, L100.0100, L500.4050 ####[facility] [address] [place], [address] Hematocrit (Bld) [Volume fraction] 39.9 % Low 40-54 [facility] Comment on above: Performed By: #### L 501.9940, L100.0100, L500.4050 ####[facility] [address] [place], [address] Hemoglobin (Bld) [Mass/Vol] 13.2 g/dL Normal 13.0-16.5 [facility] Comment on above: Performed By: #### L 501.9940, L100.0100, L500.4050 ####[facility] [address] [place], [address] IG% 0.600 Normal 0.0-0.9 [facility] Comment on above: Result Comment: IG% - Immature Granulocytes (promyelocytes, myelocytes andmetamyelocytes) > 1% indicates that a LEFT SHIFT is Present. Performed By: #### L 501.9940, L100.0100, L500.4050 ####[facility] [address] [place], [address] Lymphocytes/100 WBC (Bld) 23.2 % Normal 19-41 [facility] Comment on above: Performed By: #### L 501.9940, L100.0100, L500.4050 ####[facility] [address] [place], [address] MCH (RBC) [Entitic mass] 30.1 pg Normal 27.0-32.0 [facility] Comment on above: Performed By: #### L 501.9940, L100.0100, L500.4050 ####[facility] [address] [place], [address] MCHC (RBC) [Mass/Vol] 33.1 g/dL Normal 32-36 [facility] Comment on above: Performed By: #### L 501.9940, L100.0100, L500.4050 ####[facility] [address] [place], [address] MCV (RBC) [Entitic vol] 91.1 fL Normal 80-94 [facility] Comment on above: Performed By: #### L 501.9940, L100.0100, L500.4050 ####[facility] [address] [place], [address] Monocytes/100 WBC (Bld) 9.5 % Normal 0-10 [facility] Comment on above: Performed By: #### L 501.9940, L100.0100, L500.4050 ####[facility] [address] [place], [address] Neutrophils/100 WBC (Bld) 63.1 % Normal 47-70 [facility] Comment on above: Performed By: #### L 501.9940, L100.0100, L500.4050 ####[facility] [address] [place], [address] Nucleated RBC (Bld) [#/Vol] 0 10*3/uL Normal 0-5 [facility] Comment on above: Performed By: #### L 501.9940, L100.0100, L500.4050 ####[facility] [address] [place], [address] Platelet mean volume (Bld) [Entitic vol] 9.4 fL Normal 6.2-12.0 [facility] Comment on above: Performed By: #### L 501.9940, L100.0100, L500.4050 ####[facility] [address] [place], [address] Platelets (Bld) [#/Vol] 242 10*3/uL Normal 150-450 [facility] Comment on above: Performed By: #### L 501.9940, L100.0100, L500.4050 ####[facility] [address] [place], [address] RBC (Bld) [#/Vol] 4.38 10*6/uL Low 4.6-6.2 [facility] Comment on above: Performed By: #### L 501.9940, L100.0100, L500.4050 ####[facility] [address] [place], [address] RDW SD 41.3 fl Normal 35.1-43.9 [facility] Comment on above: Performed By: #### L 501.9940, L100.0100, L500.4050 ####[facility] [address] [place], [address] WBC (Bld) [#/Vol] 3.6 10*3/uL Low 4.4-11.0 [facility] Comment on above: Performed By: #### L 501.9940, L100.0100, L500.4050 ####[facility] [address] [place], [address] Comprehensive Metabolic Prof [facility] 03-11-2024 Albumin [Mass/Vol] 3.3 g/dL Normal 3.2-5.0 [facility] Comment on above: Performed By: #### L 501.9940, L100.0100, L500.4050 ####[facility] [address] [place], [address] Albumin/Globulin [Mass ratio] 0.9 {ratio} Normal 0.9-2.4 [facility] Comment on above: Performed By: #### L 501.9940, L100.0100, L500.4050 ####[facility] [address] [place], [address] ALK P 60 U/L Normal 45-117 [facility] Comment on above: Performed By: #### L 501.9940, L100.0100, L500.4050 ####[facility] [address] [place], [address] ALT [Catalytic activity/Vol] 47 U/L Normal 16-61 [facility] Comment on above: Performed By: #### L 501.9940, L100.0100, L500.4050 ####[facility] [address] [place], [address] AST [Catalytic activity/Vol] 23 U/L Normal 15-37 [facility] Comment on above: Performed By: #### L 501.9940, L100.0100, L500.4050 ####[facility] [address] [place], [address] Bilirubin [Mass/Vol] 0.60 mg/dL Normal 0.20-1.00 [facility] Comment on above: Result Comment: For patients on eltrombopag therapy, use of Dimension [place] TBIL is not recommended. Performed By: #### L 501.9940, L100.0100, L500.4050 ####[facility] [address] [place], [address] BUN/CRE 22.2 RATIO High 10-20 [facility] Comment on above: Performed By: #### L 501.9940, L100.0100, L500.4050 ####[facility] [address] [place], [address] CA,Total 9.0 mg/dL Normal 8.5-10.1 [facility] Comment on above: Performed By: #### L 501.9940, L100.0100, L500.4050 ####[facility] [address] [place], [address] Chloride [Moles/Vol] 108 mmol/L High 98-107 [facility] Comment on above: Performed By: #### L 501.9940, L100.0100, L500.4050 ####[facility] [address] [place], [address] CO2 [Moles/Vol] 28.0 mmol/L Normal 21.0-32.0 [facility] Comment on above: Performed By: #### L 501.9940, L100.0100, L500.4050 ####[facility] [address] [place], [address] Creatinine [Mass/Vol] 0.99 mg/dL Normal 0.70-1.30 [facility] Comment on above: Result Comment: The validity of the calculated GFR GFRAA in patients over70 years has not been determined. Clinical correlation isessential. Performed By: #### L 501.9940, L100.0100, L500.4050 ####[facility] [address] [place], [address] ECRCL 101.23 ml/min Normal [facility] Comment on above: Performed By: #### L 501.9940, L100.0100, L500.4050 ####[facility] [address] [place], [address] EST GFR - AA 98 mL/min Normal >60 [facility] Comment on above: Result Comment: Afri can [place] GFR Calc Performed By: #### L 501.9940, L100.0100, L500.4050 ####[facility] [address] [place], [address] GAP 6 Normal 5-15 [facility] Comment on above: Performed By: #### L 501.9940, L100.0100, L500.4050 ####[facility] [address] [place], [address] GFR/1.73 sq M.predicted among non-blacks MDRD (S/P/Bld) [Vol rate/Area] 81 mL/min/{1.73_m2} Normal >60 [facility] Comment on above: Result Comment: Non- GFR Calc Performed By: #### L 501.9940, L100.0100, L500.4050 ####[facility] [address] [place], [address] Globulin (S) [Mass/Vol] 3.5 g/dL Normal 2.2-4.2 [facility] Comment on above: Performed By: #### L 501.9940, L100.0100, L500.4050 ####[facility] [address] [place], [address] Glucose [Mass/Vol] 153 mg/dL High 74-106 [facility] Comment on above: Result Comment: Fast ing Glucose result greater than or equal to 126 mg/dLsuggests DIABETES MELLITUS per A.D.A. criteria. Performed By: #### L 501.9940, L100.0100, L500.4050 ####[facility] [address] [place], [address] Potassium [Moles/Vol] 3.7 mmol/L Normal 3.5-5.1 [facility] Comment on above: Performed By: #### L 501.9940, L100.0100, L500.4050 ####[facility] [address] [place], [address] Sodium [Moles/Vol] 142 mmol/L Normal 136-145 [facility] Comment on above: Performed By: #### L 501.9940, L100.0100, L500.4050 ####[facility] [address] [place], [address] T PROT 6.8 g/dL Normal 6.4-8.2 [facility] Comment on above: Performed By: #### L 501.9940, L100.0100, L500.4050 ####[facility] [address] [place], [address] Urea nitrogen [Mass/Vol] 22 mg/dL High 7-18 [facility] Comment on above: Performed By: #### L 501.9940, L100.0100, L500.4050 ####[facility] [address] [place], [address] Oncology Visit Reporton 02-26 Oncology Visit Report Normal [facility] PSA,Total- Diagnosticon 02-26 PSA, DIAGNOSTIC 1.35 ng/mL Normal 0.0-4.0 [facility] Comment on above: Result Comment: This test was performed using the TPSA assay method for [employer] chemistry system. Values obtained with differentassay methods cannot be used interchangably.When changing PSA assays in the course of monitoring apatient, additional sequential testing should be carriedout to confirm baseline values. Performed By: #### L 501.9940, L100.0100, L500.4050 ####[facility] [address] [place], [address] CVFLURVon 02-23-2024 FLU A PCR Negative Normal Negative [facility] Comment on above: Performed By: #### C BC, TSH, ANEU, ADIFF, PSA, CMP, A1C, GFR, LIPID #### [address] [id number] #### B12 #### [facility] [address] [place] [address] FLU B PCR Negative Normal Negative [facility] Comment on above: Performed By: #### C BC, TSH, ANEU, ADIFF, PSA, CMP, A1C, GFR, LIPID #### [address] [id number] #### B12 #### [facility] [address] [place] [address] RSV PCR Negative Normal Negative [facility] Comment on above: Performed By: #### C BC, TSH, ANEU, ADIFF, PSA, CMP, A1C, GFR, LIPID #### [address] [address] #### B12 #### [place] [address] SARS-CoV-2 (COVID-19) RNA DANIEL+probe Ql (Unsp spec) Negative Normal Negative [facility] Comment on above: Result Comment: Resu lts from the Xpert Xpress CoV-2/Flu/RSV plus test should be correlated with the clinical history, epidemiological data, and other data available to the clinical evaluating the patient. Performance of the Xpert Xpress CoV-2/Flu/RSV plus test has only been established in nasopharyngeal swab specimen. Erroneous test results might occur from improper specimen collection, failure to follow the recommended sample collection, handling and storage procedures, technical error, or sample mix-up. False negative results may occur if a virus is present at a level below the analytical limit of detection. Viral nucleic acid may persist in vivo, independent of virus viability. Detection of analyte target(s) does not imply that the corresponding virus(es) are infectious or are the causative agents for clinical symptoms. Recent patient exposure to FluMist or other live attenuated influenza vaccines may cause inaccurate positive results. Performed By: #### C BC, TSH, ANEU, ADIFF, PSA, CMP, A1C, GFR, LIPID #### [address] [address] #### B12 #### [address] [address] LABORATORYOrdered By: Олег so on 02-23-2024 FLUAV RNA DANIEL+probe Ql (Resp) Negative (02/23/24 4:40 PM) Normal AO Auto Urine SS FLUBV RNA DANIEL+probe Ql (Resp) Negative (02/23/24 4:40 PM) Normal AO Auto Urine SS Group A Strep PCR Int Negative Results: Negative for Streptococcus pyogenes by PCR. A negative test result does not exclude the possibility of infection because the test result may be affected by improper specimen collection, technical error, sample mix-up, or because the number of organisms in the sample is below the limit of detection of the test.The Xpert Xpress Strep A test should not be used as the sole basis for treatment or other patient management decisions. The Xpert Xpress Strep A test does not differentiate asymptomatic carriers of Group A streptococci from those exhibiting streptococcal infection. The results from the Xpert Xpress Strep A test should be interpreted in conjunction with other laboratory and clinical data available to the clinician.The Xpert Xpress Strep A Assay is a real-time polymerase chain reaction (PCR) based qualitative in vitro diagnostic test for the direct detection of Streptococcus pyogenes (Group A Beta hemolytic Streptococcus) in throat swab specimens from patients with signs and symptoms of pharyngitis.The assay is not intended to monitor treatment for Group A Streptococcus infections. Invalid Interpretation Code AO Auto Urine SS RSV RNA DANIEL+probe Ql (Resp) Negative (02/23/24 4:40 PM) Normal AO Auto Urine SS S. pyogenes DNA DANIEL+probe Ql (Throat) Not Detected (02/23/24 4:40 PM) Normal AO Auto Urine SS SARS-CoV-2 (COVID-19) RNA DANIEL+probe Ql (Resp) Negative 1 (02/23/24 4:40 PM) Normal AO Auto Urine SS Comment on above: Interpretive Data: R esults from the Xpert Xpress CoV-2/Flu/RSV plus test should be correlated with the clinical history, epidemiological data, and other data available to the clinical evaluating the patient. Performance of the Xpert Xpress CoV-2/Flu/RSV plus test has only been established in nasopharyngeal swab specimen. Erroneous test results might occur from improper specimen collection, failure to follow the recommended sample collection, handling and storage procedures, technical error, or sample mix-up. False negative results may occur if a virus is present at a level below the analytical limit of detection. Viral nucleic acid may persist in vivo, independent of virus viability. Detection of analyte target(s) does not imply that the corresponding virus(es) are infectious or are the causative agents for clinical symptoms. Recent patient exposure to FluMist or other live attenuated influenza vaccines may cause inaccurate positive results. STREPAon 02-23-2024 Group A Strep PCR Not detected Normal Not Detected [facility] Comment on above: Performed By: #### C BC, TSH, ANEU, ADIFF, PSA, CMP, A1C, GFR, LIPID #### [address] [address] #### B12 #### [address] [address] Group A Strep PCR Int Normal [facility] Comment on above: Result Comment: Nega tive Results: Negative for Streptococcus pyogenes by PCR. A negative test result does not exclude the possibility of infection because the test result may be affected by improper specimen collection, technical error, sample mix-up, or because the number of organisms in the sample is below the limit of detection of the test. The Xpert Xpress Strep A test should not be used as the sole basis for treatment or other patient management decisions. The Xpert Xpress Strep A test does not differentiate asymptomatic carriers of Group A streptococci from those exhibiting streptococcal infection. The results from the Xpert Xpress Strep A test should be interpreted in conjunction with other laboratory and clinical data available to the clinician. The Xpert Xpress Strep A Assay is a real-time polymerase chain reaction (PCR) based qualitative in vitro diagnostic test for the direct detection of Streptococcus pyogenes (Group A Beta hemolytic Streptococcus) in throat swab specimens from patients with signs and symptoms of pharyngitis. The assay is not intended to monitor treatment for Group A Streptococcus infections. See Interp Performed By: #### C BC, TSH, ANEU, ADIFF, PSA, CMP, A1C, GFR, LIPID #### [address] [address] #### B12 #### [address] [address] .Auto Diffon 01-21-2024 Basophil, Absolute 0.0 10 3/mcL Normal 0.0-0.2 [facility] Comment on above: Performed By: #### C BC, TSH, ANEU, ADIFF, PSA, CMP, A1C, GFR, LIPID #### [address] [address] #### B12 #### [address] [address] Basophils/100 WBC (Bld) 1.0 % Normal 0.0-2.5 [facility] Comment on above: Performed By: #### C BC, TSH, ANEU, ADIFF, PSA, CMP, A1C, GFR, LIPID #### [place] [address] #### B12 #### [address] [address] Eosinophil, Absolute 0.2 10 3/mcL Normal 0.0-0.[address] [facility] Comment on above: Performed By: #### C BC, TSH, ANEU, ADIFF, PSA, CMP, A1C, GFR, LIPID #### [place] [address] #### B12 #### [address] [address] Eosinophils/100 WBC (Bld) 6.1 % Normal 0.0-7.0 [facility] Comment on above: Performed By: #### C BC, TSH, ANEU, ADIFF, PSA, CMP, A1C, GFR, LIPID #### [place] [address] #### B12 #### [address] [address] Lymphocyte, Absolute 1.1 10 3/mcL Normal 0.9-4.[address] [facility] Comment on above: Performed By: #### C BC, TSH, ANEU, ADIFF, PSA, CMP, A1C, GFR, LIPID #### [place] [address] #### B12 #### [address] [address] Lymphocytes/100 WBC (Bld) 28.5 % Normal 20.0-40.0 [facility] Comment on above: Performed By: #### C BC, TSH, ANEU, ADIFF, PSA, CMP, A1C, GFR, LIPID #### [place] [address] #### B12 #### [place] [address] Monocyte, Absolute 0.4 10 3/mcL Normal 0.1-1.4 [facility] Comment on above: Performed By: #### C BC, TSH, ANEU, ADIFF, PSA, CMP, A1C, GFR, LIPID #### [address] [address] #### B12 #### [address] [address] Monocytes/100 WBC (Bld) 10.5 % Normal 2.0-13.0 [facility] Comment on above: Performed By: #### C BC, TSH, ANEU, ADIFF, PSA, CMP, A1C, GFR, LIPID #### [address] [address] #### B12 #### [address] [address] Neutrophils/100 WBC (Bld) 53.9 % Normal 50.0-75.0 [facility] Comment on above: Performed By: #### C BC, TSH, ANEU, ADIFF, PSA, CMP, A1C, GFR, LIPID #### [address] [address] #### B12 #### [address] [address] .GFRon 01-21-2024 GFR 93 ml/min/1.73sqm Normal [facility] Comment on above: Result Comment: GFR Population mean for , Non- Americans Ages 20-29 = 116 mL/min/1.73 sq.m. Ages 30-39 = 107 mL/min/1.73 sq.m. Ages 40-49 = 99 mL/min/1.73 sq.m. Ages 50-59 = 93 mL/min/1.73 sq.m. Ages 60-69 = 85 mL/min/1.73 sq.m. Ages 70+ = 75 mL/min/1.73 sq.m. Chronic Kidney Disease: Less than 60 mL/min/1.73 square meters End Stage Renal Disease: Less than 15 mL/min/1.73 square meters Performed By: #### C BC, TSH, ANEU, ADIFF, PSA, CMP, A1C, GFR, LIPID #### [address] [address] #### B12 #### [address] [address] GFR Non- 77 ml/min/1.73sqm Normal [facility] Comment on above: Result Comment: GFR Population mean for , Non- Americans Ages 20-29 = 116 mL/min/1.73 sq.m. Ages 30-39 = 107 mL/min/1.73 sq.m. Ages 40-49 = 99 mL/min/1.73 sq.m. Ages 50-59 = 93 mL/min/1.73 sq.m. Ages 60-69 = 85 mL/min/1.73 sq.m. Ages 70+ = 75 mL/min/1.73 sq.m. Chronic Kidney Disease: Less than 60 mL/min/1.73 square meters End Stage Renal Disease: Less than 15 mL/min/1.73 square meters Performed By: #### C BC, TSH, ANEU, ADIFF, PSA, CMP, A1C, GFR, LIPID #### [address] [address] #### B12 #### [address] [address] .NEUABSon 01-21-2024 Neutrophil, Absolute 2.0 10 3/mcL Low 2.3-8.[address] [facility] Comment on above: Performed By: #### C BC, TSH, ANEU, ADIFF, PSA, CMP, A1C, GFR, LIPID #### [address] [address] #### B12 #### [address] [address] A1Con 01-21-2024 Glucose [Mass/Vol] 103 mg/dL Normal [facility] Comment on above: Result Comment: Clara mated Average Glucose calculated by equation ((28.7xA1C)-46.7) Estimated average glucose (eAG) is a calculated value from Hemoglobin A1C and is business office representative of the average blood glucose level in the last 2-3 month period. Normal range: less than 114 mg/dL Performed By: #### C BC, TSH, ANEU, ADIFF, PSA, CMP, A1C, GFR, LIPID #### [address] [address] #### B12 #### [address] [address] HbA1c (Bld) [Mass fraction] 5.2 % Normal 4.3-6.4 [facility] Comment on above: Performed By: #### C BC, TSH, ANEU, ADIFF, PSA, CMP, A1C, GFR, LIPID #### [place] [id number] #### B12 #### [id number] [place] [address] 01-21-2024 Cobalamin (Vitamin B12) [Mass/Vol] 1186 pg/mL High 211-911 [facility] Comment on above: Performed By: #### M ALBR #### [place] [address] CBCon 01-21-2024 Erythrocyte distribution width (RBC) [Ratio] 14.6 % Normal 11.5-15.5 [facility] Comment on above: Performed By: #### C BC, TSH, ANEU, ADIFF, PSA, CMP, A1C, GFR, LIPID #### [place] [address] #### B12 #### [address] [address] Hematocrit (Bld) [Volume fraction] 38.9 % Low 40.0-52.0 [facility] Comment on above: Performed By: #### C BC, TSH, ANEU, ADIFF, PSA, CMP, A1C, GFR, LIPID #### [place] [address] #### B12 #### [address] [address] Hgb 13.2 G/dL Normal 13.0-17.5 [facility] Comment on above: Performed By: #### C BC, TSH, ANEU, ADIFF, PSA, CMP, A1C, GFR, LIPID #### [place] [address] #### B12 #### [place] [address] MCH (RBC) [Entitic mass] 32.2 pg Normal 27.0-33.0 [facility] Comment on above: Performed By: #### C BC, TSH, ANEU, ADIFF, PSA, CMP, A1C, GFR, LIPID #### [place] [address] #### B12 #### [place] [address] MCHC 33.8 G/dL Normal 32.0-36.0 [facility] Comment on above: Performed By: #### C BC, TSH, ANEU, ADIFF, PSA, CMP, A1C, GFR, LIPID #### [place] [address] #### B12 #### [place] [address] MCV (RBC) [Entitic vol] 95.2 fL Normal 81.0-100.0 [facility] Comment on above: Performed By: #### C BC, TSH, ANEU, ADIFF, PSA, CMP, A1C, GFR, LIPID #### [place] [address] #### B12 #### [place] [address] Platelet 214 10 3/mcL Normal 150-450 [facility] Comment on above: Performed By: #### C BC, TSH, ANEU, ADIFF, PSA, CMP, A1C, GFR, LIPID #### [place] [address] #### B12 #### [place] [address] Platelet mean volume (Bld) [Entitic vol] 7.7 fL Normal 6.4-10.5 [facility] Comment on above: Performed By: #### C BC, TSH, ANEU, ADIFF, PSA, CMP, A1C, GFR, LIPID #### [address] [address] #### B12 #### [place] [address] RBC 4.09 10 6/mcL Low 4.50-6.00 [facility] Comment on above: Performed By: #### C BC, TSH, ANEU, ADIFF, PSA, CMP, A1C, GFR, LIPID #### [place] [address] #### B12 #### [place] [address] WBC 3.7 10 3/mcL Low 4.5-10.8 [facility] Comment on above: Performed By: #### C BC, TSH, ANEU, ADIFF, PSA, CMP, A1C, GFR, LIPID #### [place] [address] #### B12 #### [place] [address] CMPon 01-21-2024 Albumin Level 3.6 G/dL Normal 3.4-4.8 [facility] Comment on above: Performed By: #### C BC, TSH, ANEU, ADIFF, PSA, CMP, A1C, GFR, LIPID #### [place] [address] #### B12 #### [place] [address] Albumin/Globulin [Mass ratio] 1.2 {ratio} Normal 1.1-2.5 [facility] Comment on above: Performed By: #### C BC, TSH, ANEU, ADIFF, PSA, CMP, A1C, GFR, LIPID #### [place] [address] #### B12 #### [place] [address] ALP [Catalytic activity/Vol] 50 U/L Normal 40-135 [facility] Comment on above: Performed By: #### C BC, TSH, ANEU, ADIFF, PSA, CMP, A1C, GFR, LIPID #### [address] [address] #### B12 #### [address] [address] ALT [Catalytic activity/Vol] 28 U/L Normal 16-63 [facility] Comment on above: Performed By: #### C BC, TSH, ANEU, ADIFF, PSA, CMP, A1C, GFR, LIPID #### [place] [address] #### B12 #### [address] [address] AST [Catalytic activity/Vol] 14 U/L Normal 10-40 [facility] Comment on above: Performed By: #### C BC, TSH, ANEU, ADIFF, PSA, CMP, A1C, GFR, LIPID #### [place] [address] #### B12 #### [place] [address] Bili Total 0.8 mg/dL Normal 0.2-1.0 [facility] Comment on above: Result Comment: Use of this assay is not recommended for patients undergoing treatment with eltrombopag due to the potential for falsely elevated results. Performed By: #### C BC, TSH, ANEU, ADIFF, PSA, CMP, A1C, GFR, LIPID #### [address] [address] #### B12 #### [place] [address] BUN/Creatinine Ratio 19 ratio Normal 7-27 [facility] Comment on above: Performed By: #### C BC, TSH, ANEU, ADIFF, PSA, CMP, A1C, GFR, LIPID #### [place] [address] #### B12 #### [place] [address] Calcium [Mass/Vol] 9.2 mg/dL Normal 8.4-10.2 [facility] Comment on above: Performed By: #### C BC, TSH, ANEU, ADIFF, PSA, CMP, A1C, GFR, LIPID #### [address] [address] #### B12 #### [address] [address] Chloride [Moles/Vol] 106 mmol/L Normal 98-107 [facility] Comment on above: Performed By: #### C BC, TSH, ANEU, ADIFF, PSA, CMP, A1C, GFR, LIPID #### [place] [address] #### B12 #### [address] [address] CO2 [Moles/Vol] 31 mmol/L Normal 23-31 [facility] Comment on above: Performed By: #### C BC, TSH, ANEU, ADIFF, PSA, CMP, A1C, GFR, LIPID #### [place] [address] #### B12 #### [place] [address] Creatinine [Mass/Vol] 0.99 mg/dL Normal 0.70-1.30 [facility] Comment on above: Result Comment: Test ing performed on Siemens Dimension EXL analyzer using a modified kinetic Ja technique. Performed By: #### C BC, TSH, ANEU, ADIFF, PSA, CMP, A1C, GFR, LIPID #### [address] [address] #### B12 #### [place] [address] Electrolyte Balance 4.0 mEq/L Normal 4.0-15.0 [facility] Comment on above: Performed By: #### C BC, TSH, ANEU, ADIFF, PSA, CMP, A1C, GFR, LIPID #### [place] [address] #### B12 #### [place] [address] Globulin 2.9 G/dL Normal [facility] Comment on above: Performed By: #### C BC, TSH, ANEU, ADIFF, PSA, CMP, A1C, GFR, LIPID #### [address] [address] #### B12 #### [address] [address] Glucose [Mass/Vol] 109 mg/dL Normal 80-115 [facility] Comment on above: Performed By: #### C BC, TSH, ANEU, ADIFF, PSA, CMP, A1C, GFR, LIPID #### [address] [address] #### B12 #### [address] [address] Potassium [Moles/Vol] 4.2 mmol/L Normal 3.5-5.1 [facility] Comment on above: Performed By: #### C BC, TSH, ANEU, ADIFF, PSA, CMP, A1C, GFR, LIPID #### [place] [address] #### B12 #### [address] [address] Sodium [Moles/Vol] 141 mmol/L Normal 136-145 [facility] Comment on above: Performed By: #### C BC, TSH, ANEU, ADIFF, PSA, CMP, A1C, GFR, LIPID #### [address] [address] #### B12 #### [address] [address] Total Protein 6.5 G/dL Normal 6.4-8.2 [facility] Comment on above: Performed By: #### C BC, TSH, ANEU, ADIFF, PSA, CMP, A1C, GFR, LIPID #### [address] [address] #### B12 #### [address] [address] Urea nitrogen [Mass/Vol] 19 mg/dL High 7-18 [facility] Comment on above: Performed By: #### C BC, TSH, ANEU, ADIFF, PSA, CMP, A1C, GFR, LIPID #### [facility] [address] [place], [place] [address] #### B12 #### [place] [address] [address] [place] [address] LABORATORYOrdered By: She Yang on 01-21-2024 Albumin DL <= 20 mg/L (U) [Mass/Vol] 493 mcg/dL Invalid Interpretation Code AO ADM SS Albumin/Creatinine DL <= 20 mg/L (U) [Mass ratio] 8 mcg/mg Normal 0 - 30 mcg/mg AO ADM SS Creatinine (U) [Mass/Vol] 63.2 mg/dL Normal 39.0 - 259.0 mg/dL AO ADM SS Cholesterol [Mass/Vol] 222 mg/dL High 0 - 2 00 mg/dL AO ADM SS Comment on above: Interpretive Data: C holesterol Reference Interval: Less than 200 Desirable 200-239 Borderline high risk 240 and above High risk Cholesterol in HDL [Mass/Vol] 53 mg/dL Normal 40 - 60 mg/dL AO ADM SS Cholesterol in LDL [Mass/Vol] 140 mg/dL High 0 - 130 mg/dL AO ADM SS Triglyceride [Mass/Vol] 144 mg/dL Normal 0 - 150 mg/dL AO ADM SS Comment on above: Interpretive Data: T riglyceride Reference Interval: Less than 150 Normal 150-199 Borderline high risk 200-499 High risk 500 or higher Very high risk LABORATORYOrdered By: SYSTEM SYSTEM on 01-21-2024 Albumin BCP dye [Mass/Vol] 3.6 G/dL Normal 3.4 - 4.8 G/dL AO ADM SS Albumin/Globulin [Mass ratio] 1.2 {ratio} Normal 1.1 - 2.5 ratio AO ADM SS ALP [Catalytic activity/Vol] 50 U/L Normal 40 - 135 U/L AO ADM SS ALT With P-5'-P [Catalytic activity/Vol] 28 U/L Normal 16 - 63 U/L AO ADM SS AST With P-5'-P [Catalytic activity/Vol] 14 U/L Normal 10 - 40 U/L AO ADM SS Basophils (Bld) [#/Vol] 0.0 103/mcL Normal 0.0 - 0.2 10^3/mcL AO Workflow SS Basophils/100 WBC (Bld) 1.0 % Normal 0.0 - 2.5 % AO Workflow SS Bilirubin [Mass/Vol] 0.8 mg/dL Normal 0.2 - 1 .0 mg/dL AO ADM SS Comment on above: Interpretive Data: U se of this assay is not recommended for patients undergoing treatment with eltrombopag due to the potential for falsely elevated results. Calcium [Mass/Vol] 9.2 mg/dL Normal 8.4 - 10. 2 mg/dL AO ADM SS Chloride [Moles/Vol] 106 mmol/L Normal 98 - 10 7 mmol/L AO ADM SS CO2 [Moles/Vol] 31 mmol/L Normal 23 - 31 mmol/L AO ADM SS Cobalamin (Vitamin B12) [Mass/Vol] 1186 pg/mL High 211 - 911 pg/mL AH ADM SS Creatinine [Mass/Vol] 0.99 mg/dL Normal 0.70 - 1.30 mg/dL AO ADM SS Comment on above: Interpretive Data: T esting performed on Siemens Dimension EXL analyzer using a modified kinetic Ja technique. Electrolyte Balance 4.0 mEq/L Normal 4.0 - 15 .0 mEq/L AO ADM SS Eosinophil, Absolute 0.2 103/mcL Normal 0.0 - 0 .7 10^3/mcL AO Workflow SS Eosinophils/100 WBC (Bld) 6.1 % Normal 0.0 - 7.0 % AO Workflow SS Erythrocyte distribution width (RBC) [Ratio] 14.6 % Normal 11.5 - 15.5 % AO Workflow SS GFR/1.73 sq M.predicted among blacks MDRD (S/P/Bld) [Vol rate/Area] 93 ml/min/1.73sqm Invalid Interpretation Code AO Chemistry S Comment on above: Interpretive Data: GFR Population mean for , Non- Americans Ages 20-29 = 116 mL/min/1.73 sq.m. Ages 30-39 = 107 mL/min/1.73 sq.m. Ages 40-49 = 99 mL/min/1.73 sq.m. Ages 50-59 = 93 mL/min/1.73 sq.m. Ages 60-69 = 85 mL/min/1.73 sq.m. Ages 70+ = 75 mL/min/1.73 sq.m. Chronic Kidney Disease: Less than 60 mL/min/1.73 square meters End Stage Renal Disease: Less than 15 mL/min/1.73 square meters GFR/1.73 sq M.predicted among non-blacks MDRD (S/P/Bld) [Vol rate/Area] 77 ml/min/1.73sqm Invalid Interpretation Code AO Chemistry S Comment on above: Interpretive Data: GFR Population mean for , Non- Americans Ages 20-29 = 116 mL/min/1.73 sq.m. Ages 30-39 = 107 mL/min/1.73 sq.m. Ages 40-49 = 99 mL/min/1.73 sq.m. Ages 50-59 = 93 mL/min/1.73 sq.m. Ages 60-69 = 85 mL/min/1.73 sq.m. Ages 70+ = 75 mL/min/1.73 sq.m. Chronic Kidney Disease: Less than 60 mL/min/1.73 square meters End Stage Renal Disease: Less than 15 mL/min/1.73 square meters Globulin 2.9 G/dL Invalid Interpretation Code AO ADM SS Glucose [Mass/Vol] 103 mg/dL Invalid Interpretation Code AO Chemistry S Comment on above: Interpretive Data: E stimated average glucose (eAG) is a calculated value from Hemoglobin A1C and is business office representative of the average blood glucose level in the last 2-3 month period. Normal range: less than 114 mg/dL Glucose [Mass/Vol] 109 mg/dL Normal 80 - 115 mg/dL AO ADM SS HbA1c (Bld) [Mass fraction] 5.2 % Normal 4.3 - 6.4 % AO ADM SS Hematocrit (Bld) [Volume fraction] 38.9 % Low 40.0 - 52.0 % AO Workflow SS Hemoglobin (Bld) [Mass/Vol] 13.2 G/dL Normal 13.0 - 17.5 G/dL AO Workflow SS Lymphocytes (Bld) [#/Vol] 1.1 103/mcL Normal 0.9 - 4.3 10^3/mcL AO Workflow SS Lymphocytes/100 WBC (Bld) 28.5 % Normal 20.0 - 40.0 % AO Workflow SS MCH (RBC) [Entitic mass] 32.2 pg Normal 27.0 - 33.0 pg AO Workflow SS MCHC 33.8 G/dL Normal 32.0 - 36.0 G/dL AO Workflow SS MCV (RBC) [Entitic vol] 95.2 fL Normal 81.0 - 100.0 fL AO Workflow SS Monocytes (Bld) [#/Vol] 0.4 103/mcL Normal 0.1 - 1.4 10^3/mcL AO Workflow SS Monocytes/100 WBC (Bld) 10.5 % Normal 2.0 - 13.0 % AO Workflow SS Neutrophils (Bld) [#/Vol] 2.0 103/mcL Low 2.3 - 8.1 10^3/mcL AO Workflow SS Neutrophils/100 WBC (Bld) 53.9 % Normal 50.0 - 75.0 % AO Workflow SS Platelet mean volume (Bld) [Entitic vol] 7.7 fL Normal 6.4 - 10.5 fL AO Workflow SS Platelets (Bld) [#/Vol] 214 103/mcL Normal 150 - 450 10^3/mcL AO Workflow SS Potassium [Moles/Vol] 4.2 mmol/L Normal 3.5 - 5.1 mmol/L AO ADM SS Prostate specific Ag [Mass/Vol] 0.65 ng/mL Normal 0.00 - 4.00 ng/mL AO ADM SS Protein [Mass/Vol] 6.5 G/dL Normal 6.4 - 8.2 G/dL AO ADM SS RBC (Bld) [#/Vol] 4.09 106/mcL Low 4.50 - 6.0 0 10^6/mcL AO Workflow SS Sodium [Moles/Vol] 141 mmol/L Normal 136 - 145 mmol/L AO ADM SS TSH Qn 0.82 m[IU]/L Normal 0.36 - 3.74 mcIU/mL AO ADM SS Urea nitrogen [Mass/Vol] 19 mg/dL High 7 - 18 mg/dL AO ADM SS Urea nitrogen/Creatinine [Mass ratio] 19 ratio Normal 7 - 27 ratio AO ADM SS WBC (Bld) [#/Vol] 3.7 103/mcL Low 4.5 - 10.8 10^3/mcL AO Workflow SS LIPIDon 01-21-2024 Cholesterol [Mass/Vol] 222 mg/dL High 0-[address] [facility] Comment on above: Result Comment: Chol esterol Reference Interval: Less than 200 Desirable 200-239 Borderline high risk 240 and above High risk Performed By: #### M ALBR #### [address] [address] Cholesterol in HDL [Mass/Vol] 53 mg/dL Normal 40-60 [facility] Comment on above: Performed By: #### M ALBR #### [address] [address] Cholesterol in LDL [Mass/Vol] 140 mg/dL High 0-130 [facility] Comment on above: Performed By: #### M ALBR #### [address] [address] Triglyceride [Mass/Vol] 144 mg/dL Normal 0-150 [facility] Comment on above: Result Comment: Trig lyceride Reference Interval: Less than 150 Normal 150-199 Borderline high risk 200-499 High risk 500 or higher Very high risk Performed By: #### M ALBR #### [address] [address] MALBRon 01-21-2024 U Creatinine 63.2 mg/dL Normal 39.0-259.0 [facility] Comment on above: Performed By: #### M ALBR #### [address] [address] U Microalb 493 mcg/dL Normal [facility] Comment on above: Performed By: #### M ALBR #### [address] [address] U Ratio Alb/Cre 8 mcg/mg Normal 0-30 [facility] Comment on above: Performed By: #### M ALBR #### [address] [address] PSAon 01-21-2024 Prostate Specific Antigen 0.65 ng/mL Normal 0.00-4.00 [facility] Comment on above: Performed By: #### C BC, TSH, ANEU, ADIFF, PSA, CMP, A1C, GFR, LIPID #### [address] [address] #### B12 #### [facility] [address] [place] [address] TSHon 01-21-2024 TSH Qn 0.82 m[IU]/L Normal 0.36-3.74 [facility] Comment on above: Order Comment: REFLE X FREE T4 IF ABNORMAL! (TSH < 0.36, or TSH > 3.64) Performed By: #### C BC, TSH, ANEU, ADIFF, PSA, CMP, A1C, GFR, LIPID #### [address] [address] #### B12 #### [facility] [address] [place] [address] METon 12-12-2023 Methylmalonic Acid 267 nmol/L Normal 0-378 [facility] ([place]) Comment on above: Result Comment: This test was developed and its performance characteristics determined by [facility]. It has not been cleared or approved by the Food and Drug Administration. Performed At: [facility] [id number] Kaushik Dennis MD Ph:[phone] Performed By: #### C BC, DIFF, MORPH #### [address] [address] TFTESTon 12-06-2023 Free Testost Direct 0.3 pg/mL Low 6.6-18.1 [facility] ([place]) Comment on above: Result Comment: Perf ormed At: [facility] [id number] Kaushik Dennis MD Ph:[phone] Performed At: [facility] [id number] Kd Plascencia PhD Ph:[phone] Performed By: #### C BC, DIFF, MORPH #### [address] [address] Testosterone Lvl 7 ng/dL Low 409-056 [facility] ([place]) Comment on above: Result Comment: Adul t male reference interval is based on a population of healthy nonobese males (BMI <30) between 19 and 39 years old. apoorva Sharif.al. JCEM 2017,102;1042-5771. PMID: [id number]. Performed By: #### C BC, DIFF, MORPH #### [address] [address] .Manual Diffon 12-03-2023 Bands 1.0 % Normal 0.0-5.0 [facility] ([place]) Comment on above: Performed By: #### C BC, DIFF, MORPH #### [address] [address] Basophil %, Manual 0.0 % Normal 0.0-2.5 [facility] ([place]) Comment on above: Performed By: #### C BC, DIFF, MORPH #### [address] [address] Basophil, Abs Manual 0.0 10 3/mcL Normal 0.0-0.2 [facility] ([place]) Comment on above: Performed By: #### C BC, DIFF, MORPH #### [address] [address] Eosinophil %, Manual 0.0 % Normal 0.0-7.0 [facility] ([place]) Comment on above: Performed By: #### C BC, DIFF, MORPH #### [address] [address] Eosinophil, Abs Manual 0.0 10 3/mcL Normal 0.0-0.4 [facility] ([place]) Comment on above: Performed By: #### C BC, DIFF, MORPH #### [address] [address] Lymphocyte %, Manual 4.0 % Low 10.0-50.0 [facility] ([place]) Comment on above: Performed By: #### C BC, DIFF, MORPH #### [address] [address] Lymphocyte, Abs Manual 0.5 10 3/mcL Low 0.8-3.9 [facility] ([place]) Comment on above: Performed By: #### C BC, DIFF, MORPH #### [address] [address] Monocyte %, Manual 4.0 % Normal 1.7-13.0 [facility] ([place]) Comment on above: Performed By: #### C BC, DIFF, MORPH #### [address] [address] Monocyte, Abs Manual 0.4 10 3/mcL Normal 0.2-1.0 [facility] ([place]) Comment on above: Performed By: #### C BC, DIFF, MORPH #### [address] [address] Neutrophil %, Manual 91.0 % High 37.0-80.0 [facility] ([place]) Comment on above: Performed By: #### C BC, DIFF, MORPH #### [address] [address] Nucleated RBC 2.0 /100 WBC Normal [facility] ([place]) Comment on above: Performed By: #### C BC, DIFF, MORPH #### [address] [address] Neutrophil, Abs Manual 10.1 10 3/mcL High 2.9-6.2 [facility] ([place]) Comment on above: Performed By: #### C BC, DIFF, MORPH #### [address] [address] .Morphon 12-03-2023 Anisocytosis Ql (Bld) 1+ Normal [facility] ([place]) Comment on above: Performed By: #### C BC, DIFF, MORPH #### [address] [address] Macrocytosis 1+ Normal [facility] ([place]) Comment on above: Performed By: #### C BC, DIFF, MORPH #### [address] [address] Platelet Estimate Normal Normal [facility] ([place]) Comment on above: Performed By: #### C BC, DIFF, MORPH #### [address] [address] Polychrom 1+ Normal [facility] ([place] Comment on above: Performed By: #### C BC, DIFF, MORPH #### [address] [address] Stomatocytes 1+ Normal [facility] ([place] Comment on above: Performed By: #### C BC, DIFF, MORPH #### [address] [address] B12on 12-03-2023 Cobalamin (Vitamin B12) [Mass/Vol] 1480 pg/mL High 211-911 [facility] ([place] Comment on above: Performed By: #### C BC, DIFF, MORPH #### [place] [id number] CBCon 12-03-2023 Erythrocyte distribution width (RBC) [Ratio] 17.1 % High 11.5-14.5 [facility] ([place] Comment on above: Performed By: #### C BC, DIFF, MORPH #### [place] [address] Hematocrit (Bld) [Volume fraction] 35.9 % Low 42.0-52.0 [facility] ([place] Comment on above: Performed By: #### C BC, DIFF, MORPH #### [place] [phone] Hgb 11.9 G/dL Low 14.0-18.0 [facility] ([place] Comment on above: Performed By: #### C BC, DIFF, MORPH #### [place] [id number] MCH (RBC) [Entitic mass] 33.1 pg High 27.0-31.2 [facility] ([place] Comment on above: Performed By: #### C BC, DIFF, MORPH #### [place] [id number] MCHC 33.3 G/dL Normal 31.8-35.4 [facility] ([place]) Comment on above: Performed By: #### C BC, DIFF, MORPH #### [place] [id number] MCV (RBC) [Entitic vol] 99.6 fL High 80.0-94.0 A [facility] ([place]) Comment on above: Performed By: #### C BC, DIFF, MORPH #### [place] [id number] Platelet 206 10 3/mcL Normal 130-400 [facility] ([place]) Comment on above: Performed By: #### C BC, DIFF, MORPH #### Darell [place] [id number] [place], [place] [address] Platelet mean volume (Bld) [Entitic vol] 8.4 fL Normal 7.4-10.4 [facility] ([place]) Comment on above: Performed By: #### C BC, DIFF, MORPH #### Darell [address] [address] RBC 3.61 10 6/mcL Low 4.04-6.13 [facility] ([place]) Comment on above: Performed By: #### C BC, DIFF, MORPH #### Dare[place] [address] [place], [place] [address] WBC 11.0 10 3/mcL High 4.6-10.8 [facility] ([place]) Comment on above: Performed By: #### C BC, DIFF, MORPH #### Darell [address] [address] [place] 12-03-2023 Ferritin [Mass/Vol] 351.0 ng/mL Normal 26.0-388.0 [facility] ([place]) Comment on above: Performed By: #### 7 [id number], FERR, TSH, FT4, FT3, FES, VIDH, LIPID, [id number] ####[place] [address]#### FOL, B12 ####[place] [address] FESon 12-03-2023 Iron [Mass/Vol] 68 ug/dL Normal 65-175 [facility] ([place]) Comment on above: Performed By: #### 7 [address], FERR, TSH, FT4, FT3, FES, VIDH, LIPID, [id number] ####[address] [address]#### FOL, B12 ####[place] [address] Iron Sat 19 % Normal [facility] ([place]) Comment on above: Performed By: #### 7 [address]121, FERR, TSH, FT4, FT3, FES, VIDH, LIPID, [id number] ####[place] [address]#### FOL, B12 ####[place] [address] TIBC 349 mcg/dL Normal 250-450 [facility] ([place]) Comment on above: Performed By: #### 7 [address], FERR, TSH, FT4, FT3, FES, VIDH, LIPID, [id number] ####[place] [address]#### FOL, B12 ####[place] [address] FOLon 12-03-2023 Folate 8.16 ng/mL Normal 5.38-24.00 [facility] ([place]) Comment on above: Performed By: #### C BC, DIFF, MORPH #### [place] [address] FT3on 12-03-2023 Free T3 [Mass/Vol] 2.94 pg/mL Normal 2.30-4.00 [facility] ([place]) Comment on above: Performed By: #### 7 [address], FERR, TSH, FT4, FT3, FES, VIDH, LIPID, [id number] ####[place] [address]#### FOL, B12 ####[place] [address] FT4on 12-03-2023 Free T4 [Mass/Vol] 1.16 ng/dL Normal 0.76-1.46 [facility] ([place]) Comment on above: Performed By: #### 7 [address], FERR, TSH, FT4, FT3, FES, VIDH, LIPID, [id number] ####[place] [address]#### FOL, B12 ####[place] [address] HIVRPon 12-03-2023 HIV p24 Antigen Non-Reactive Normal Non-Reactiv e [facility] ([place]) Comment on above: Result Comment: Dete ction of p24 may be inhibited by biotin in the sample, causing false negative results in acute infection. Therefore do not test samples from patients who are taking biotin. Performed By: #### H IVRP #### [address] [address] HIV P24 Int Non-Reactive Invalid Interpretation Code [facility] ([place]) Comment on above: Performed By: #### H IVRP #### [address] [address] Rapid HIV 1/2 Antibody Non-Reactive Normal Non-R eactiv e [facility] ([place]) Comment on above: Performed By: #### H IVRP #### [address] [address] RHIV 1/2 Ab Int Non-Reactive Invalid Interpretation Code [facility] ([place]) Comment on above: Performed By: #### H IVRP #### [address] [address] LIPIDon 12-03-2023 Cholesterol [Mass/Vol] 183 mg/dL Normal 0-200 [facility] ([place]) Comment on above: Result Comment: Chol esterol Reference Interval: Less than 200 Desirable 200-239 Borderline high risk 240 and above High risk Performed By: #### C BC, DIFF, MORPH #### [address] [address] Cholesterol in HDL [Mass/Vol] 28 mg/dL Low 40-60 [facility] ([place]) Comment on above: Performed By: #### C BC, DIFF, MORPH #### [address] [address] Cholesterol in LDL [Mass/Vol] 116 mg/dL Normal 0-130 [facility] ([place]) Comment on above: Performed By: #### C BC, DIFF, MORPH #### [address] [address] Triglyceride [Mass/Vol] 196 mg/dL High 0-150 [facility] ([place]) Comment on above: Result Comment: Trig lyceride Reference Interval: Less than 150 Normal 150-199 Borderline high risk 200-499 High risk 500 or higher Very high risk Performed By: #### C BC, DIFF, MORPH #### Darell [place] [address] [place], [place] [address] TSHon 12-03-2023 TSH Qn 1.35 m[IU]/L Normal 0.36-3.74 [facility] ([place]) Comment on above: Performed By: #### 7 [address], FERR, TSH, FT4, FT3, FES, VIDH, LIPID, [id number] ####Darell [address] [place], [place] [address]#### FOL, B12 ####[place] [address] VIDHon 12-03-2023 Vit. D 25-Hydroxy 44.9 ng/mL Normal [facility] ([place]) Comment on above: Result Comment: Inte rpretive Values Based on Total 25(OH) Vitamin D: Deficient <20 ng/mL Insufficient 20 - <30 ng/mL Sufficient 30-100 ng/mL Performed By: #### C BC, DIFF, MORPH #### [facility] [address] [place], [place] [address] Direct serum free thyroxine (FT4) measurementOrdered By: Catalino Williamson on 11-03-2023 Free T4 [Mass/Vol] 0.98 ng/dL 0.76-1.46 [facility] Serum or plasma thyroid stim ulating hormone (TSH) measurement (units/volume)Ordered By: Catalino Williamson on 11-03-2023 TSH Qn 0.20 uIU/mL Low 0.358-3.74 [facility] XR SHOULDER MINIMUM 2 VIEWS LEFTon 08-20-2023 XR SHOULDER MINIMUM 2 VIEWS LEFT ORIGINAL EXAMINATION: XR left shoulder three views 08/20/2023 10:51 am COMPARISON: None HISTORY: ORDERING SYSTEM PROVIDED HISTORY: Reason for Exam: L shoulder pain with decreased ROM 2/2 fall, FINDINGS: No acute fracture, dislocation, lytic process or periosteal reaction is seen in the visualized bones and joints. No erosive type of arthritis. No periarticular soft tissue calcification. Glenohumeral joint is unremarkable. 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 Normal subacromial space. Included left upper ribs show no obvious displaced fracture. IMPRESSION: No acute skeletal abnormality is seen. . Mild AC joint arthrosis. Interpreted by: Mahendra Coronel MD Preliminary Report By: Mahendra Coronel MD Electronically signed By Mahendra Coronel MD Dictated Date: 08/20/2023 11:34:15 PM Prelim Date: 08/20/2023 11:35:09 PM Sign Date: 08/20/2023 11:35:09 PM Ordering Provider: AZAM PAINTER [facility] ([place]) Absolute lymphocyte countOrd ered By: Kristiealejandro Purcell on 08-11-2023 Lymphocytes Auto (Unsp spec) [#/Vol] 0.77 10*3/uL 0.83-4.51 [facility] Automated lymphocyte count a s percentage of total leukocytesOrdered By: Jignesh Purcell on 08-11-2023 Lymphocytes/100 WBC Auto (Unsp spec) 19.3 % 19-41 [facility] Basophil percentageOrdered B y: Jignesh Purcell on 08-11-2023 Basophil percentage 4.12 ng/mL 0.0-4.0 [facility] Comment on above: This test was perfor med using the TPSA assay method [facility]. Values obtained with differentassay methods cannot be used interchangably.When changing PSA assays in the course of monitoring apatient, additional sequential testing should be carriedout to confirm baseline values. Basophils/100 WBC (Bld) 0.8 % 0-1 [facility] Bilirubin [Mass/Vol] 0.80 mg/dL 0.20-1.00 [facility] Comment on above: For patients on eltr ombopag therapy, use of [place] TBIL is not recommended. Chloride [Moles/Vol] 109 mmol/L 98-107 [facility] Eosinophils/100 WBC (Bld) 2.3 % 0-5 [facility] Glucose [Mass/Vol] 115 mg/dL 74-106 [facility] Comment on above: Fasting Glucose resu lt from 100 to 125 mg/dL suggests IMPAIRED HOMEOSTASIS per A.D.A. criteria. Hemoglobin (Bld) [Mass/Vol] 13.3 g/dL 13.0-16.5 [facility] Monocytes/100 WBC (Bld) 11.3 % 0-10 [facility] Neutrophils (Bld) [#/Vol] 2.6 10*3/uL 2.0-7.7 [facility] Neutrophils/100 WBC (Bld) 66.0 % 47-70 [facility] Potassium [Moles/Vol] 4.0 mmol/L 3.5-5.1 [facility] Protein [Mass/Vol] 7.2 g/dL 6.4-8.2 [facility] Sodium [Moles/Vol] 142 mmol/L 136-145 [facility] WBC (Bld) [#/Vol] 4.0 10*3/uL 4.4-11.0 [facility] Determination of erythrocyte mean corpuscular volume (MCV)Ordered By: Jignesh Purcell on 08-11-2023 MCV (RBC) [Entitic vol] 90.5 fL 80-94 [facility] Erythrocyte distribution wid th ratioOrdered By: [facility] J[facility]zy on 08-11-2023 Erythrocyte distribution width (RBC) [Ratio] 13.0 % 11.6-14.6 [facility] Erythrocyte distribution wid th standard deviationOrdered By: [facility] J[facility]zy on 08-11-2023 Erythrocyte distribution width (RBC) [Entitic vol] 42.7 fL 35.1-43.9 [facility] Hematocrit Auto (Bld) [Volum e fraction]Ordered By: Jignesh Purcell on 08-11-2023 Hematocrit (Bld) [Volume fraction] 40.2 % 40-54 [facility] Immature granulocytes/100 WB C Auto (Bld)Ordered By: [facility] on 08-11-2023 Immature granulocytes/100 WBC (Bld) 0.300 % 0.0-0.9 [facility] Comment on above: IG% - Immature Granu locytes (promyelocytes, myelocytes and metamyelocytes) > 1% indicates that a LEFT SHIFT is Present. Laboratory - Chemistry and C hemistry - challengeOrdered By: Jignesh Purcell on 08-11-2023 Albumin/Globulin [Mass ratio] 0.9 {ratio} 0.9-2.4 [facility] ALP [Catalytic activity/Vol] 108 U/L 45-117 [facility] ALT [Catalytic activity/Vol] 24 U/L 16-61 [facility] CO2 [Moles/Vol] 29.0 mmol/L 21.0-32.0 [facility] Globulin (S) [Mass/Vol] 3.8 g/dL 2.2-4.2 [facility] Urea nitrogen/Creatinine [Mass ratio] 25.3 mg/mg 10-20 [facility] Laboratory - Hematology and Cell countsOrdered By: Jignesh Purcell on 08-11-2023 MCH (RBC) [Entitic mass] 30.0 pg 27.0-32.0 [facility] MCHC (RBC) [Mass/Vol] 33.1 g/dL 32-36 [facility] Nucleated RBC/100 WBC (Bld) [Ratio] 0 % 0-5 [facility] Platelet mean volume (Bld) [Entitic vol] 9.0 fL 6.2-12.0 [facility] Platelets (Bld) [#/Vol] 232 10*3/uL 150-450 [facility] No Panel InformationOrdered By: Jignesh Purcell on 08-11-2023 Estimated Creatinine Clearance Calc 134.12 ml/min [facility] Estimated GFR (MDRD) Amer 136 mL/min >60 [facility] Comment on above: GFR Calc Estimated GFR (MDRD) Non-Af Amer 113 mL/min >60 [facility] Comment on above: Non- GFR Calc RBC Auto (Bld) [#/Vol]Ordere d By: Jignesh Purcell on 08-11-2023 RBC (Bld) [#/Vol] 4.44 10*6/uL 4.6-6.2 [facility] Serum or plasma calcium delia urement (mass/volume)Ordered By: Jignesh Purcell on 08-11-2023 Calcium [Mass/Vol] 9.4 mg/dL 8.5-10.1 [facility] Serum or plasma creatinine m easurement (mass/volume)Ordered By: Jignesh Purcell on 08-11-2023 Creatinine [Mass/Vol] 0.75 mg/dL 0.70-1.30 [facility] Comment on above: The validity of the calculated GFR & GFRAA in patients over 70 years has not been determined. Clinical correlation is essential. Serum or plasma urea nitroge n measurement (mass/volume)Ordered By: Jignesh Purcell on 08-11-2023 Urea nitrogen [Mass/Vol] 19 mg/dL 7-18 [facility] Thin prep Papanicolaou smear with manual screeningOrdered By: [facility] Purcell on 08-11-2023 Thin prep Papanicolaou smear with manual screening 3.4 g/dL 3.2-5.0 [facility] Thin prep Papanicolaou smear with manual screening 17 U/L 15-37 [facility] Thin prep Papanicolaou smear with manual screening 4 5-15 [facility] No Panel InformationOrdered By: Matthew Medellin on 07-10-2023 Nasal Screen MRSA/MSSA [facility] Absolute lymphocyte countOrd ered By: Jignesh Purcell on 07-01-2023 Lymphocytes Auto (Unsp spec) [#/Vol] 0.93 10*3/uL 0.83-4.51 [facility] Automated lymphocyte count a s percentage of total leukocytesOrdered By: Jignesh Purcell on 07-01-2023 Lymphocytes/100 WBC Auto (Unsp spec) 27.8 % 19-41 [facility] Basophil percentageOrdered B y: Jignesh Purcell on 07-01-2023 Basophil percentage 3.75 ng/mL 0.0-4.0 [facility] Comment on above: This test was perfor med using the TPSA assay method [facility] the[facility]. Values obtained with differentassay methods cannot be used interchangably.When changing PSA assays in the course of monitoring apatient, additional sequential testing should be carriedout to confirm baseline values. Basophils/100 WBC (Bld) 0.9 % 0-1 [facility] Bilirubin [Mass/Vol] 0.60 mg/dL 0.20-1.00 [facility] Comment on above: For patients on eltr ombopag therapy, use of [place] TBIL is not recommended. Chloride [Moles/Vol] 107 mmol/L 98-107 [facility] Eosinophils/100 WBC (Bld) 2.7 % 0-5 [facility] Glucose [Mass/Vol] 141 mg/dL 74-106 [facility] Comment on above: Fasting Glucose resu lt greater than or equal to 126 mg/dL suggests DIABETES MELLITUS per A.D.A. criteria. Hemoglobin (Bld) [Mass/Vol] 14.1 g/dL 13.0-16.5 [facility] Monocytes/100 WBC (Bld) 8.7 % 0-10 [facility] Neutrophils (Bld) [#/Vol] 2.0 10*3/uL 2.0-7.7 [facility] Neutrophils/100 WBC (Bld) 59.3 % 47-70 [facility] Potassium [Moles/Vol] 4.0 mmol/L 3.5-5.1 [facility] Protein [Mass/Vol] 7.3 g/dL 6.4-8.2 [facility] Sodium [Moles/Vol] 141 mmol/L 136-145 [facility] WBC (Bld) [#/Vol] 3.3 10*3/uL 4.4-11.0 [facility] Determination of erythrocyte mean corpuscular volume (MCV)Ordered By: Jignesh Purcell on 07-01-2023 MCV (RBC) [Entitic vol] 87.7 fL 80-94 [facility] Erythrocyte distribution wid th ratioOrdered By: Jignesh Purcell on 07-01-2023 Erythrocyte distribution width (RBC) [Ratio] 11.9 % 11.6-14.6 [facility] Erythrocyte distribution wid th standard deviationOrdered By: Jignesh Purcell on 07-01-2023 Erythrocyte distribution width (RBC) [Entitic vol] 38.4 fL 35.1-43.9 [facility] Hematocrit Auto (Bld) [Volum e fraction]Ordered By: Jignesh Purcell on 07-01-2023 Hematocrit (Bld) [Volume fraction] 41.2 % 40-54 [facility] Immature granulocytes/100 WB C Auto (Bld)Ordered By: Jignesh Purcell on 07-01-2023 Immature granulocytes/100 WBC (Bld) 0.600 % 0.0-0.9 [facility] Comment on above: IG% - Immature Granu locytes (promyelocytes, myelocytes and metamyelocytes) > 1% indicates that a LEFT SHIFT is Present. Laboratory - Chemistry and C hemistry - challengeOrdered By: Jignesh Purcell on 07-01-2023 Albumin/Globulin [Mass ratio] 0.9 {ratio} 0.9-2.4 [facility] ALP [Catalytic activity/Vol] 97 U/L 45-117 [facility] ALT [Catalytic activity/Vol] 21 U/L 16-61 [facility] CO2 [Moles/Vol] 30.0 mmol/L 21.0-32.0 [facility] Globulin (S) [Mass/Vol] 3.8 g/dL 2.2-4.2 [facility] Urea nitrogen/Creatinine [Mass ratio] 20.0 mg/mg 10-20 [facility] Laboratory - Hematology and Cell countsOrdered By: Jignesh Purcell on 07-01-2023 MCH (RBC) [Entitic mass] 30.0 pg 27.0-32.0 [facility] MCHC (RBC) [Mass/Vol] 34.2 g/dL 32-36 [facility] Nucleated RBC/100 WBC (Bld) [Ratio] 0 % 0-5 [facility] Platelet mean volume (Bld) [Entitic vol] 9.0 fL 6.2-12.0 [facility] Platelets (Bld) [#/Vol] 293 10*3/uL 150-450 [facility] No Panel InformationOrdered By: Jignesh Purcell on 07-01-2023 Estimated Creatinine Clearance Calc 101.28 ml/min [facility] Estimated GFR (MDRD) Amer 98 mL/min >60 [facility] Comment on above: GFR Calc Estimated GFR (MDRD) Non-Af Amer 81 mL/min >60 [facility] Comment on above: Non- GFR Calc RBC Auto (Bld) [#/Vol]Ordere d By: Jignesh Purcell on 07-01-2023 RBC (Bld) [#/Vol] 4.70 10*6/uL 4.6-6.2 [facility] Serum or plasma calcium delia urement (mass/volume)Ordered By: Jignesh Purcell on 07-01-2023 Calcium [Mass/Vol] 9.9 mg/dL 8.5-10.1 [facility] Serum or plasma creatinine m easurement (mass/volume)Ordered By: Jignesh Purcell on 07-01-2023 Creatinine [Mass/Vol] 1.00 mg/dL 0.70-1.30 [facility] Comment on above: The validity of the calculated GFR & GFRAA in patients over 70 years has not been determined. Clinical correlation is essential. Serum or plasma urea nitroge n measurement (mass/volume)Ordered By: Jignesh Purcell on 07-01-2023 Urea nitrogen [Mass/Vol] 20 mg/dL 7-18 [facility] Thin prep Papanicolaou smear with manual screeningOrdered By: [facility] Jazzy on 07-01-2023 Thin prep Papanicolaou smear with manual screening 3.5 g/dL 3.2-5.0 [facility] Thin prep Papanicolaou smear with manual screening 14 U/L 15-37 [facility] Thin prep Papanicolaou smear with manual screening 4 5-15 [facility] Laboratory - Drug toxicology Ordered By: Andrews Morales on 06-27-2023 Amphetamines Ql (U) Negative <1000 ng/mL [facility] Benzodiazepines Ql (U) Negative < 200 ng/mL [facility] Cannabinoids Screen Ql (U) Negative < 50 ng/mL [facility] Cocaine Ql (U) Negative < 300 ng/mL [facility] Opiates Ql (U) Negative < 300 ng/mL [facility] No Panel InformationOrdered By: Andrews Morales on 06-27-2023 MDMA (Ecstasy) Screen Negative < 500 ng/mL [facility] Miscellaneous Test See comment [facility] Comment on above: [id number] 6+OXYCODONE-B UND (ng/mL) DRUG RESULT SCREEN CUTOFF____ Amphetamines,Urine Negative ng/mL 1000 Amphetamine test includes Amphetamine and Methamphetamine.Barbiturates Negative ng/mL 200Benzodiazepines Negative ng/mL 200Cannabinoid Negative ng/mL 20Cocaine (Metab) Negative ng/mL 300Opiates Negative ng/mL 300 Opiates test includes Codeine, Morphine, Hydromorphone, Hydrocodone. Oxycodone/Oxymorphone,Urine Negative ng/mL 300 Test includes Oxycodone and Oxymorphone. TESTING PERFORMED AT [facility]. ORIGINAL REPORT ON FILE IN LAB CONTAINS ADDITIONAL TEST SITE INFORMATION. Urine Barbiturates Screen Negative < 200 ng/mL [facility] Urine Drug Screen Comment [facility] Comment on above: CONFIRMATORY TESTING FOR ALL POSITIVE URINE DRUG SCREENRESULTS WILL ONLY BE SENT OUT UPON PHYSICIAN ORDER. VISTA Urine Drug Screen methods provide only preliminaryanalytical test results. A more specific alternate chemicalmethod must be used in order to obtain a confirmedanalytical result. Gas chromatography/mass spectrometery(GC/MS) is the preferred confirmatory method. Clinicalconsideration and professional judgement should be appliedto any drug of abuse test result, particularly whenpreliminary positive results are used. URINE TCA TESTING MUST BE ORDERED SEPARATELY. USE TESTMNEMONIC: [facility] Urine Methadone Screen Negative < 300 ng/mL [facility] Urine phencyclidine (PCP) de tectionOrdered By: Andrews Morales on 06-27-2023 Phencyclidine Ql (U) Negative < 25 ng/mL [facility] Absolute lymphocyte countOrd ered By: Catalino Williamson on 06-12-2023 Lymphocytes Auto (Unsp spec) [#/Vol] 0.84 10*3/uL 0.83-4.51 [facility] Automated lymphocyte count a s percentage of total leukocytesOrdered By: Catalino Williamson on 06-12-2023 Lymphocytes/100 WBC Auto (Unsp spec) 30.4 % 19-41 [facility] Basophil percentageOrdered B y: Jignesh Purcell on 06-12-2023 Basophil percentage 3.22 ng/mL 0.0-4.0 [facility] Comment on above: This test was perfor med using the TPSA assay method for the[employer] chemistry system. Values obtained with differentassay methods cannot be used interchangably.When changing PSA assays in the course of monitoring apatient, additional sequential testing should be carriedout to confirm baseline values. Basophil percentageOrdered B y: Catalino Williamson on 06-12-2023 Basophils/100 WBC (Bld) 0.7 % 0-1 [facility] Bilirubin [Mass/Vol] 0.50 mg/dL 0.20-1.00 [facility] Comment on above: For patients on eltr ombopag therapy, use of [place] TBIL is not recommended. Chloride [Moles/Vol] 109 mmol/L 98-107 [facility] Eosinophils/100 WBC (Bld) 4.0 % 0-5 [facility] Glucose [Mass/Vol] 79 mg/dL 74-106 [facility] Hemoglobin (Bld) [Mass/Vol] 13.9 g/dL 13.0-16.5 [facility] Monocytes/100 WBC (Bld) 11.2 % 0-10 [facility] Neutrophils (Bld) [#/Vol] 1.5 10*3/uL 2.0-7.7 [facility] Neutrophils/100 WBC (Bld) 53.7 % 47-70 [facility] Potassium [Moles/Vol] 4.0 mmol/L 3.5-5.1 [facility] Protein [Mass/Vol] 6.8 g/dL 6.4-8.2 [facility] Sodium [Moles/Vol] 142 mmol/L 136-145 [facility] WBC (Bld) [#/Vol] 2.8 10*3/uL 4.4-11.0 [facility] Determination of erythrocyte mean corpuscular volume (MCV)Ordered By: Catalino Williamson on 06-12-2023 MCV (RBC) [Entitic vol] 91.1 fL 80-94 [facility] Erythrocyte distribution wid th ratioOrdered By: Catalino Williamson on 06-12-2023 Erythrocyte distribution width (RBC) [Ratio] 12.4 % 11.6-14.6 [facility] Erythrocyte distribution wid th standard deviationOrdered By: Catalino Williamson on 06-12-2023 Erythrocyte distribution width (RBC) [Entitic vol] 40.9 fL 35.1-43.9 [facility] Hematocrit Auto (Bld) [Volum e fraction]Ordered By: Catalino Williamson on 06-12-2023 Hematocrit (Bld) [Volume fraction] 40.8 % 40-54 [facility] Immature granulocytes/100 WB C Auto (Bld)Ordered By: Catalino Williamson on 06-12-2023 Immature granulocytes/100 WBC (Bld) 0.000 % 0.0-0.9 [facility] Comment on above: IG% - Immature Granu locytes (promyelocytes, myelocytes and metamyelocytes) > 1% indicates that a LEFT SHIFT is Present. Laboratory - Chemistry and C hemistry - challengeOrdered By: Catalino Williamson on 06-12-2023 Albumin/Globulin [Mass ratio] 1.1 {ratio} 0.9-2.4 [facility] ALP [Catalytic activity/Vol] 77 U/L 45-117 [facility] ALT [Catalytic activity/Vol] 28 U/L 16-61 [facility] CO2 [Moles/Vol] 32.0 mmol/L 21.0-32.0 [facility] Globulin (S) [Mass/Vol] 3.3 g/dL 2.2-4.2 [facility] Natriuretic peptide B (Bld) [Mass/Vol] 56.7 pg/mL 0-100 [facility] Urea nitrogen/Creatinine [Mass ratio] 17.3 mg/mg 10-20 [facility] Laboratory - Hematology and Cell countsOrdered By: Catalino Williamson on 06-12-2023 MCH (RBC) [Entitic mass] 31.0 pg 27.0-32.0 [facility] MCHC (RBC) [Mass/Vol] 34.1 g/dL 32-36 [facility] Nucleated RBC/100 WBC (Bld) [Ratio] 0 % 0-5 [facility] Platelet mean volume (Bld) [Entitic vol] 9.7 fL 6.2-12.0 [facility] Platelets (Bld) [#/Vol] 211 10*3/uL 150-450 [facility] No Panel InformationOrdered By: Catalino Williamson on 06-12-2023 Estimated GFR (MDRD) Amer 115 mL/min >60 [facility] Comment on above: GFR Calc Estimated GFR (MDRD) Non-Af Amer 95 mL/min >60 [facility] Comment on above: Non- GFR Calc RBC Auto (Bld) [#/Vol]Ordere d By: Catalino Williamson on 06-12-2023 RBC (Bld) [#/Vol] 4.48 10*6/uL 4.6-6.2 [facility] Serum or plasma calcium delia urement (mass/volume)Ordered By: Catalino Williamson on 06-12-2023 Calcium [Mass/Vol] 9.6 mg/dL 8.5-10.1 [facility] Serum or plasma creatinine m easurement (mass/volume)Ordered By: Catalino Williamson on 06-12-2023 Creatinine [Mass/Vol] 0.87 mg/dL 0.70-1.30 [facility] Comment on above: The validity of the calculated GFR & GFRAA in patients over 70 years has not been determined. Clinical correlation is essential. Serum or plasma urea nitroge n measurement (mass/volume)Ordered By: Catalino Williamson on 06-12-2023 Urea nitrogen [Mass/Vol] 15 mg/dL 7-18 [facility] Thin prep Papanicolaou smear with manual screeningOrdered By: Catalino Williamson on 06-12-2023 Thin prep Papanicolaou smear with manual screening 3.5 g/dL 3.2-5.0 [facility] Thin prep Papanicolaou smear with manual screening 17 U/L 15-37 [facility] Thin prep Papanicolaou smear with manual screening 1 5-15 [facility] Absolute lymphocyte countOrd ered By: Jignesh Purcell on 04-30-2023 Lymphocytes Auto (Unsp spec) [#/Vol] 0.98 10*3/uL 0.83-4.51 [facility] Basophil percentageOrdered B y: Jignesh Purcell on 04-30-2023 Basophils/100 WBC (Bld) 1.0 % 0-1 [facility] Bilirubin [Mass/Vol] 0.50 mg/dL 0.20-1.00 [facility] Comment on above: For patients on eltr ombopag therapy, use of Dimension [place] TBIL is not recommended. Chloride [Moles/Vol] 108 mmol/L 98-107 [facility] Eosinophils/100 WBC (Bld) 4.6 % 0-5 [facility] Glucose [Mass/Vol] 92 mg/dL 74-106 [facility] Neutrophils (Bld) [#/Vol] 1.5 10*3/uL 2.0-7.7 [facility] Neutrophils/100 WBC (Bld) 48.6 % 47-70 [facility] Potassium [Moles/Vol] 4.1 mmol/L 3.5-5.1 [facility] Protein [Mass/Vol] 7.1 g/dL 6.4-8.2 [facility] Sodium [Moles/Vol] 144 mmol/L 136-145 [facility] WBC (Bld) [#/Vol] 3.0 10*3/uL 4.4-11.0 [facility] Blood erythrocytes count (nu mber/volume)Ordered By: Jignesh Purcell on 04-30-2023 RBC (Bld) [#/Vol] 4.42 10*6/uL 4.6-6.2 [facility] Blood hemoglobin measurement (mass/volume)Ordered By: Jignesh Purcell on 04-30-2023 Hemoglobin (Bld) [Mass/Vol] 13.9 g/dL 13.0-16.5 [facility] Blood lymphocytes/100 leukoc ytesOrdered By: Jignesh Purcell on 04-30-2023 Lymphocytes/100 WBC (Bld) 32.3 % 19-41 [facility] Blood monocytes/100 leukocyt esOrdered By: Jignesh Purcell on 04-30-2023 Monocytes/100 WBC (Bld) 13.2 % 0-10 [facility] Blood platelet mean volumeOr dered By: Jignesh Purcell on 04-30-2023 Platelet mean volume (Bld) [Entitic vol] 9.0 fL 6.2-12.0 [facility] Determination of erythrocyte mean corpuscular volume (MCV)Ordered By: Jignesh Purcell on 04-30-2023 MCV (RBC) [Entitic vol] 91.2 fL 80-94 [facility] Hematocrit Auto (Bld) [Volum e fraction]Ordered By: Jignesh Purcell on 04-30-2023 Hematocrit (Bld) [Volume fraction] 40.3 % 40-54 [facility] Laboratory - Chemistry and C hemistry - challengeOrdered By: Jignesh Purcell on 04-30-2023 ALP [Catalytic activity/Vol] 70 U/L 45-117 [facility] ALT [Catalytic activity/Vol] 30 U/L 16-61 [facility] CO2 [Moles/Vol] 33.0 mmol/L 21.0-32.0 [facility] Globulin (S) [Mass/Vol] 3.6 g/dL 2.2-4.2 [facility] Urea nitrogen/Creatinine [Mass ratio] 18.1 mg/mg 10-20 [facility] Laboratory - Hematology and Cell countsOrdered By: [facility] on 04-30-2023 Erythrocyte distribution width (RBC) [Entitic vol] 41.2 fL 35.1-43.9 [facility] Erythrocyte distribution width (RBC) [Ratio] 12.5 % 11.6-14.6 [facility] Immature granulocytes/100 WBC (Bld) 0.300 % 0.0-0.9 [facility] Comment on above: IG% - Immature Granu locytes (promyelocytes, myelocytes and metamyelocytes) > 1% indicates that a LEFT SHIFT is Present. MCH (RBC) [Entitic mass] 31.4 pg 27.0-32.0 [facility] Nucleated RBC/100 WBC (Bld) [Ratio] 0 % 0-5 [facility] MCHC Auto (RBC) [Mass/Vol]Or dered By: Jignesh Purcell on 04-30-2023 MCHC (RBC) [Mass/Vol] 34.5 g/dL 32-36 [facility] No Panel InformationOrdered By: [facility] on 04-30-2023 Estimated Creatinine Clearance Calc 77.25 ml/min [facility] Estimated GFR (MDRD) Amer 93 mL/min >60 [facility] Comment on above: GFR Calc Estimated GFR (MDRD) Non-Af Amer 77 mL/min >60 [facility] Comment on above: Non- GFR Calc Prostate Specific Antigen Total 2.06 ng/mL 0.0-4.0 [facility] Comment on above: This test was perfor med using the TPSA assay method for the[employer] chemistry system. Values obtained with differentassay methods cannot be used interchangably.When changing PSA assays in the course of monitoring apatient, additional sequential testing should be carriedout to confirm baseline values. Platelets bldOrdered By: Moses Purcell on 04-30-2023 Platelets (Bld) [#/Vol] 227 10*3/uL 150-450 [facility] Serum or plasma albumin delia urement (mass/volume)Ordered By: Jignesh Purcell on 04-30-2023 Albumin [Mass/Vol] 3.5 g/dL 3.2-5.0 [facility] Serum or plasma albumin/glob ulin mass ratioOrdered By: Jignesh Purcell on 04-30-2023 Albumin/Globulin [Mass ratio] 1.0 {ratio} 0.9-2.4 [facility] Serum or plasma calcium delia urement (mass/volume)Ordered By: Jignesh Purcell on 04-30-2023 Calcium [Mass/Vol] 9.2 mg/dL 8.5-10.1 [facility] Serum or plasma creatinine m easurement (mass/volume)Ordered By: Jignesh Purcell on 04-30-2023 Creatinine [Mass/Vol] 1.05 mg/dL 0.70-1.30 [facility] Comment on above: The validity of the calculated GFR & GFRAA in patients over 70 years has not been determined. Clinical correlation is essential. Serum or plasma urea nitroge n measurement (mass/volume)Ordered By: Jignesh Purcell on 04-30-2023 Urea nitrogen [Mass/Vol] 19 mg/dL 7-18 [facility] Thin prep Papanicolaou smear with manual screeningOrdered By: Jignesh Purcell on 04-30-2023 Thin prep Papanicolaou smear with manual screening 20 U/L 15-37 [facility] Thin prep Papanicolaou smear with manual screening 3 5-15 [facility] Absolute lymphocyte countOrd ered By: Jignesh Purcell on 03-31-2023 Lymphocytes Auto (Unsp spec) [#/Vol] 0.87 10*3/uL 0.83-4.51 [facility] Basophil percentageOrdered B y: Jignesh Purcell on 03-31-2023 Basophils/100 WBC (Bld) 1.0 % 0-1 [facility] Bilirubin [Mass/Vol] 0.40 mg/dL 0.20-1.00 [facility] Comment on above: For patients on eltr ombopag therapy, use of [employer] [place] TBIL is not recommended. Chloride [Moles/Vol] 107 mmol/L 98-107 [facility] Eosinophils/100 WBC (Bld) 5.2 % 0-5 [facility] Glucose [Mass/Vol] 99 mg/dL 74-106 [facility] Neutrophils (Bld) [#/Vol] 1.5 10*3/uL 2.0-7.7 [facility] Neutrophils/100 WBC (Bld) 51.2 % 47-70 [facility] Potassium [Moles/Vol] 4.5 mmol/L 3.5-5.1 [facility] Protein [Mass/Vol] 6.9 g/dL 6.4-8.2 [facility] Sodium [Moles/Vol] 140 mmol/L 136-145 [facility] WBC (Bld) [#/Vol] 2.9 10*3/uL 4.4-11.0 [facility] Blood erythrocytes count (nu mber/volume)Ordered By: Jignesh Purcell on 03-31-2023 RBC (Bld) [#/Vol] 4.34 10*6/uL 4.6-6.2 [facility] Blood hemoglobin measurement (mass/volume)Ordered By: Jignesh Purcell on 03-31-2023 Hemoglobin (Bld) [Mass/Vol] 13.4 g/dL 13.0-16.5 [facility] Blood lymphocytes/100 leukoc ytesOrdered By: Jignesh Purcell on 03-31-2023 Lymphocytes/100 WBC (Bld) 30.1 % 19-41 [facility] Blood monocytes/100 leukocyt esOrdered By: Jignesh Purcell on 03-31-2023 Monocytes/100 WBC (Bld) 12.5 % 0-10 [facility] Blood platelet mean volumeOr dered By: Jignesh Purcell on 03-31-2023 Platelet mean volume (Bld) [Entitic vol] 9.6 fL 6.2-12.0 [facility] Determination of erythrocyte mean corpuscular volume (MCV)Ordered By: Jignesh Purcell on 03-31-2023 MCV (RBC) [Entitic vol] 91.5 fL 80-94 [facility] Hematocrit Auto (Bld) [Volum e fraction]Ordered By: Jignesh Purcell on 03-31-2023 Hematocrit (Bld) [Volume fraction] 39.7 % 40-54 [facility] Laboratory - Chemistry and C hemistry - challengeOrdered By: [facility] on 03-31-2023 ALP [Catalytic activity/Vol] 72 U/L 45-117 [facility] ALT [Catalytic activity/Vol] 20 U/L 16-61 [facility] CO2 [Moles/Vol] 30.0 mmol/L 21.0-32.0 [facility] Globulin (S) [Mass/Vol] 3.6 g/dL 2.2-4.2 [facility] Urea nitrogen/Creatinine [Mass ratio] 18.1 mg/mg 10-20 [facility] Laboratory - Hematology and Cell countsOrdered By: [facility] on 03-31-2023 Erythrocyte distribution width (RBC) [Entitic vol] 40.8 fL 35.1-43.9 [facility] Erythrocyte distribution width (RBC) [Ratio] 12.3 % 11.6-14.6 [facility] Immature granulocytes/100 WBC (Bld) 0.000 % 0.0-0.9 [facility] Comment on above: IG% - Immature Granu locytes (promyelocytes, myelocytes and metamyelocytes) > 1% indicates that a LEFT SHIFT is Present. MCH (RBC) [Entitic mass] 30.9 pg 27.0-32.0 [facility] Nucleated RBC/100 WBC (Bld) [Ratio] 0 % 0-5 [facility] MCHC Auto (RBC) [Mass/Vol]Or dered By: Jignesh Purcell on 03-31-2023 MCHC (RBC) [Mass/Vol] 33.8 g/dL 32-36 [facility] No Panel InformationOrdered By: Jignesh Purcell on 03-31-2023 Estimated Creatinine Clearance Calc 92.17 ml/min [facility] Estimated GFR (MDRD) Amer 113 mL/min >60 [facility] Comment on above: GFR Calc Estimated GFR (MDRD) Non-Af Amer 94 mL/min >60 [facility] Comment on above: Non- GFR Calc Prostate Specific Antigen Total 1.66 ng/mL 0.0-4.0 [facility] Comment on above: This test was perfor med using the TPSA assay method for the[employer] chemistry system. Values obtained with differentassay methods cannot be used interchangably.When changing PSA assays in the course of monitoring apatient, additional sequential testing should be carriedout to confirm baseline values. Platelets bldOrdered By: Moses Purcell on 03-31-2023 Platelets (Bld) [#/Vol] 229 10*3/uL 150-450 [facility] Serum or plasma albumin delia urement (mass/volume)Ordered By: Jignesh Purcell on 03-31-2023 Albumin [Mass/Vol] 3.3 g/dL 3.2-5.0 [facility] Serum or plasma albumin/glob ulin mass ratioOrdered By: Jignesh Purcell on 03-31-2023 Albumin/Globulin [Mass ratio] 0.9 {ratio} 0.9-2.4 [facility] Serum or plasma calcium delia urement (mass/volume)Ordered By: Jignesh Purcell on 03-31-2023 Calcium [Mass/Vol] 9.3 mg/dL 8.5-10.1 [facility] Serum or plasma creatinine m easurement (mass/volume)Ordered By: Jignesh Purcell on 03-31-2023 Creatinine [Mass/Vol] 0.88 mg/dL 0.70-1.30 [facility] Comment on above: The validity of the calculated GFR & GFRAA in patients over 70 years has not been determined. Clinical correlation is essential. Serum or plasma urea nitroge n measurement (mass/volume)Ordered By: Jignesh Purcell on 03-31-2023 Urea nitrogen [Mass/Vol] 16 mg/dL 7-18 [facility] Thin prep Papanicolaou smear with manual screeningOrdered By: Jignesh Purcell on 03-31-2023 Thin prep Papanicolaou smear with manual screening 12 U/L 15-37 [facility] Thin prep Papanicolaou smear with manual screening 3 5-15 [facility] Basophil percentageOrdered B y: Jignesh Purcell on 03-17-2023 Testosterone [Mass/Vol] 4 ng/dL Low 264-916 [facility] Comment on above: Adult male reference interval is based on a population ofhealthy nonobese males (BMI <30) between 19 and 39 yearsold. apoorva [email or web address]. [facility] 2017,102;1332-0056. PMID:[id number]. Free testosterone percentage Ordered By: Jignesh Purcell on 03-17-2023 Testosterone Free/Testosterone.total [Mass fraction] 1.81 % 1.50-4.20 [facility] Comment on above: Performed at: [address] [id number] Director: Temo Yi PhD, Phone: [phone] at: [facility] [id number] Director: Sonny Faulkner MD, Phone: [phone] PotassiumOrdered By: Jignesh Purcell on 03-17-2023 Potassium 4 ng/dL Low 264-916 [facility] Comment on above: Adult male reference interval is based on a population ofhealthy nonobese males (BMI <30) between 19 and 39 yearsold. Kole et.al. [facility] 2017,102;8771-2074. PMID:[id number]. Serum or plasma testosterone free measurement (mass/volume)Ordered By: Jignesh Purcell on 03-17-2023 Testosterone Free [Mass/Vol] 0.07 ng/dL Low 5.00-21.00 [facility] No Panel InformationOrdered By: Seth Santamaria on 03-06-2023 Prostate Specific Antigen Total 1.35 ng/mL 0.0-4.0 [facility] Comment on above: This test was perfor med using the TPSA assay method [facility]. Values obtained with differentassay methods cannot be used interchangably.When changing PSA assays in the course of monitoring apatient, additional sequential testing should be carriedout to confirm baseline values. Direct LDLon 01-22-2023 LDL Cholesterol Direct 133 mg/dL High <100 [facility] ([place]) Comment on above: Result Comment: <100 mg/dL, Optimal 100-129 mg/dL, Near optimal/above optimal 130-159 mg/dL, Borderline high 160-189 mg/dL, High >189 mg/dL, Very high Secondary prevention optimal LDL Cholesterol levels are recommended to be < 70 mg/dL Performed By: [place] [address] Lead Neurodiagnostic Technologist: Gabe Kebede III, M.D. CLIA#: [id number] Performed By: #### L IPID, LDLDCT, CBC, ADIFF, ANEU, TSH, FT4, CMP, GFR ####[address] [address]#### HCV1 ####[address] [address] VLDL Cholesterol See Below Normal [facility] ([place]) Comment on above: Result Comment: Test not indicated. Performed By: [address] [address] Lead Neurodiagnostic Technologist: Gabe Kebede III, M.D. CLIA#: [id number] Performed By: #### L IPID, LDLDCT, CBC, ADIFF, ANEU, TSH, FT4, CMP, GFR ####[place] [address]#### HCV1 ####[address] [address] .Auto Diffon 01-21-2023 Basophil, Absolute 0.0 10 3/mcL Normal 0.0-0.2 [facility] ([place]) Comment on above: Performed By: #### L IPID, LDLDCT, CBC, ADIFF, ANEU, TSH, FT4, CMP, GFR #### [address] [address] #### HCV1 #### [address] [address] Basophils/100 WBC (Bld) 1.2 % Normal 0.0-2.5 [facility] ([place]) Comment on above: Performed By: #### L IPID, LDLDCT, CBC, ADIFF, ANEU, TSH, FT4, CMP, GFR #### [address] [address] #### HCV1 #### [address] [address] Eosinophil, Absolute 0.1 10 3/mcL Normal 0.0-0.4 [facility] ([place]) Comment on above: Performed By: #### L IPID, LDLDCT, CBC, ADIFF, ANEU, TSH, FT4, CMP, GFR #### [place] [address] #### HCV1 #### [address] [address] Eosinophils/100 WBC (Bld) 2.9 % Normal 0.0-7.0 [facility] ([place]) Comment on above: Performed By: #### L IPID, LDLDCT, CBC, ADIFF, ANEU, TSH, FT4, CMP, GFR #### [place] [address] #### HCV1 #### [address] [address] Lymphocyte, Absolute 0.7 10 3/mcL Low 0.8-3.9 [facility] ([place]) Comment on above: Performed By: #### L IPID, LDLDCT, CBC, ADIFF, ANEU, TSH, FT4, CMP, GFR #### [address] [address] #### HCV1 #### [address] [address] Lymphocytes/100 WBC (Bld) 18.4 % Normal 10.0-50.0 [facility] ([place]) Comment on above: Performed By: #### L IPID, LDLDCT, CBC, ADIFF, ANEU, TSH, FT4, CMP, GFR #### [place] [id number] #### HCV1 #### [address] [address] Monocyte, Absolute 0.3 10 3/mcL Normal 0.2-1.0 [facility] ([place]) Comment on above: Performed By: #### L IPID, LDLDCT, CBC, ADIFF, ANEU, TSH, FT4, CMP, GFR #### [address] [address] #### HCV1 #### [address] [address] Monocytes/100 WBC (Bld) 8.2 % Normal 1.7-13.0 [facility] ([place]) Comment on above: Performed By: #### L IPID, LDLDCT, CBC, ADIFF, ANEU, TSH, FT4, CMP, GFR #### [address] [address] #### HCV1 #### [address] [address] Neutrophils/100 WBC (Bld) 69.3 % Normal 37.0-80.0 [facility] ([place]) Comment on above: Performed By: #### L IPID, LDLDCT, CBC, ADIFF, ANEU, TSH, FT4, CMP, GFR #### [address] [address] #### HCV1 #### [address] [address] .GFRon 01-21-2023 GFR Non- 99 ml/min/1.73sqm Normal [facility] ([place]) Comment on above: Result Comment: GFR Population mean for , Non- Americans Ages 20-29 = 116 mL/min/1.73 sq.m. Ages 30-39 = 107 mL/min/1.73 sq.m. Ages 40-49 = 99 mL/min/1.73 sq.m. Ages 50-59 = 93 mL/min/1.73 sq.m. Ages 60-69 = 85 mL/min/1.73 sq.m. Ages 70+ = 75 mL/min/1.73 sq.m. Chronic Kidney Disease: Less than 60 mL/min/1.73 square meters End Stage Renal Disease: Less than 15 mL/min/1.73 square meters Performed By: #### L IPID, LDLDCT, CBC, ADIFF, ANEU, TSH, FT4, CMP, GFR ####[address] [address]#### HCV1 ####[address] [address] GFR 120 ml/min/1.73sqm Normal [facility] ([place]) Comment on above: Result Comment: GFR Population mean for , Non- Americans Ages 20-29 = 116 mL/min/1.73 sq.m. Ages 30-39 = 107 mL/min/1.73 sq.m. Ages 40-49 = 99 mL/min/1.73 sq.m. Ages 50-59 = 93 mL/min/1.73 sq.m. Ages 60-69 = 85 mL/min/1.73 sq.m. Ages 70+ = 75 mL/min/1.73 sq.m. Chronic Kidney Disease: Less than 60 mL/min/1.73 square meters End Stage Renal Disease: Less than 15 mL/min/1.73 square meters Performed By: #### L IPID, LDLDCT, CBC, ADIFF, ANEU, TSH, FT4, CMP, GFR ####[place] [id number]#### HCV1 ####[address] [address] .NEUABSon 01-21-2023 Neutrophil, Absolute 2.7 10 3/mcL Low 2.9-6.2 [facility] ([place]) Comment on above: Performed By: #### L IPID, LDLDCT, CBC, ADIFF, ANEU, TSH, FT4, CMP, GFR #### [address] [address] #### HCV1 #### [address] [address] CBCon 01-21-2023 Erythrocyte distribution width (RBC) [Ratio] 13.2 % Normal 11.5-14.5 [facility] ([place]) Comment on above: Performed By: #### L IPID, LDLDCT, CBC, ADIFF, ANEU, TSH, FT4, CMP, GFR #### [place] [address] #### HCV1 #### [place] [address] Hematocrit (Bld) [Volume fraction] 38.6 % Low 42.0-52.0 [facility] ([place]) Comment on above: Performed By: #### L IPID, LDLDCT, CBC, ADIFF, ANEU, TSH, FT4, CMP, GFR #### [place] [address] #### HCV1 #### [place] [address] Hgb 13.6 G/dL Low 14.0-18.0 [facility] ([place]) Comment on above: Performed By: #### L IPID, LDLDCT, CBC, ADIFF, ANEU, TSH, FT4, CMP, GFR #### [place] [address] #### HCV1 #### [place] [address] MCH (RBC) [Entitic mass] 32.0 pg High 27.0-31.2 [facility] ([place]) Comment on above: Performed By: #### L IPID, LDLDCT, CBC, ADIFF, ANEU, TSH, FT4, CMP, GFR #### [place] [address] #### HCV1 #### [place] [address] MCHC 35.3 G/dL Normal 31.8-35.4 [facility] ([place]) Comment on above: Performed By: #### L IPID, LDLDCT, CBC, ADIFF, ANEU, TSH, FT4, CMP, GFR #### [place] [address] #### HCV1 #### [place] [address] MCV (RBC) [Entitic vol] 90.6 fL Normal 80.0-94.0 [facility] ([place]) Comment on above: Performed By: #### L IPID, LDLDCT, CBC, ADIFF, ANEU, TSH, FT4, CMP, GFR #### [place] [address] #### HCV1 #### [place] [address] Platelet 194 10 3/mcL Normal 130-400 [facility] ([place]) Comment on above: Performed By: #### L IPID, LDLDCT, CBC, ADIFF, ANEU, TSH, FT4, CMP, GFR #### [place] [address] #### HCV1 #### [place] [address] Platelet mean volume (Bld) [Entitic vol] 8.3 fL Normal 7.4-10.4 [facility] ([place]) Comment on above: Performed By: #### L IPID, LDLDCT, CBC, ADIFF, ANEU, TSH, FT4, CMP, GFR #### [place] [address] #### HCV1 #### [place] [address] RBC 4.25 10 6/mcL Normal 4.04-6.13 [facility] ([place]) Comment on above: Performed By: #### L IPID, LDLDCT, CBC, ADIFF, ANEU, TSH, FT4, CMP, GFR #### [place] [address] #### HCV1 #### [place] [address] WBC 3.9 10 3/mcL Low 4.6-10.8 [facility] ([place]) Comment on above: Performed By: #### L IPID, LDLDCT, CBC, ADIFF, ANEU, TSH, FT4, CMP, GFR #### [address] [address] #### HCV1 #### [place] [address] [address] [place] [address] CMPon 01-21-2023 Albumin Level 3.8 G/dL Normal 3.4-4.8 [facility] ([place]) Comment on above: Performed By: #### L IPID, LDLDCT, CBC, ADIFF, ANEU, TSH, FT4, CMP, GFR ####[place] [address]#### HCV1 ####[address] [address] Albumin/Globulin [Mass ratio] 1.3 {ratio} Normal 1.1-2.5 [facility] ([place]) Comment on above: Performed By: #### L IPID, LDLDCT, CBC, ADIFF, ANEU, TSH, FT4, CMP, GFR ####[place] [address]#### HCV1 ####[address] [address] ALP [Catalytic activity/Vol] 60 U/L Normal 40-135 [facility] ([place]) Comment on above: Performed By: #### L IPID, LDLDCT, CBC, ADIFF, ANEU, TSH, FT4, CMP, GFR ####[place] [address]#### HCV1 ####[address] [address] ALT [Catalytic activity/Vol] 26 U/L Normal 16-63 [facility] ([place]) Comment on above: Performed By: #### L IPID, LDLDCT, CBC, ADIFF, ANEU, TSH, FT4, CMP, GFR ####[place] [address]#### HCV1 ####[address] [address] AST [Catalytic activity/Vol] 15 U/L Normal 10-40 [facility] ([place]) Comment on above: Performed By: #### L IPID, LDLDCT, CBC, ADIFF, ANEU, TSH, FT4, CMP, GFR ####[place] [address]#### HCV1 ####[place] [address] Bili Total 0.6 mg/dL Normal 0.2-1.0 [facility] ([place]) Comment on above: Result Comment: Use of this assay is not recommended for patients undergoing treatment with eltrombopag due to the potential for falsely elevated results. Performed By: #### L IPID, LDLDCT, CBC, ADIFF, ANEU, TSH, FT4, CMP, GFR ####[place] [address]#### HCV1 ####[place] [address] BUN/Creatinine Ratio 16 ratio Normal 7-27 [facility] ([place]) Comment on above: Performed By: #### L IPID, LDLDCT, CBC, ADIFF, ANEU, TSH, FT4, CMP, GFR ####[place] [address]#### HCV1 ####[place] [address] Calcium [Mass/Vol] 9.4 mg/dL Normal 8.4-10.2 [facility] ([place]) Comment on above: Performed By: #### L IPID, LDLDCT, CBC, ADIFF, ANEU, TSH, FT4, CMP, GFR ####[place] [address]#### HCV1 ####[place] [address] Chloride [Moles/Vol] 104 mmol/L Normal 98-107 [facility] ([place]) Comment on above: Performed By: #### L IPID, LDLDCT, CBC, ADIFF, ANEU, TSH, FT4, CMP, GFR ####[place] [address]#### HCV1 ####[address] [address] CO2 [Moles/Vol] 30 mmol/L Normal 23-31 [facility] ([place]) Comment on above: Performed By: #### L IPID, LDLDCT, CBC, ADIFF, ANEU, TSH, FT4, CMP, GFR ####[place] [address]#### HCV1 ####[place] [address] Creatinine [Mass/Vol] 0.80 mg/dL Normal 0.70-1.30 [facility] ([place]) Comment on above: Performed By: #### L IPID, LDLDCT, CBC, ADIFF, ANEU, TSH, FT4, CMP, GFR ####[place] [address]#### HCV1 ####[place] [address] Electrolyte Balance 9.0 mEq/L Normal 4.0-15.0 [facility] ([place]) Comment on above: Performed By: #### L IPID, LDLDCT, CBC, ADIFF, ANEU, TSH, FT4, CMP, GFR ####[place] [address]#### HCV1 ####[place] [address] Globulin 2.9 G/dL Normal [facility] ([place]) Comment on above: Performed By: #### L IPID, LDLDCT, CBC, ADIFF, ANEU, TSH, FT4, CMP, GFR ####[place] [address]#### HCV1 ####[place] [address] Glucose [Mass/Vol] 102 mg/dL Normal 80-115 [facility] ([place]) Comment on above: Performed By: #### L IPID, LDLDCT, CBC, ADIFF, ANEU, TSH, FT4, CMP, GFR ####[place] [address]#### HCV1 ####[address] [address] Potassium [Moles/Vol] 4.3 mmol/L Normal 3.5-5.1 [facility] ([place]) Comment on above: Performed By: #### L IPID, LDLDCT, CBC, ADIFF, ANEU, TSH, FT4, CMP, GFR ####[place] [address]#### HCV1 ####[place] [address] Sodium [Moles/Vol] 143 mmol/L Normal 136-145 [facility] ([place]) Comment on above: Performed By: #### L IPID, LDLDCT, CBC, ADIFF, ANEU, TSH, FT4, CMP, GFR ####[place] [address]#### HCV1 ####[place] [address] Total Protein 6.7 G/dL Normal 6.4-8.2 [facility] ([place]) Comment on above: Performed By: #### L IPID, LDLDCT, CBC, ADIFF, ANEU, TSH, FT4, CMP, GFR ####[place] [address]#### HCV1 ####[place] [address] Urea nitrogen [Mass/Vol] 13 mg/dL Normal 7-18 [facility] ([place]) Comment on above: Performed By: #### L IPID, LDLDCT, CBC, ADIFF, ANEU, TSH, FT4, CMP, GFR ####[place] [address]#### HCV1 ####[address] [address] FT4on 01-21-2023 Free T4 [Mass/Vol] 0.95 ng/dL Normal 0.76-1.46 [facility] ([place]) Comment on above: Performed By: #### L IPID, LDLDCT, CBC, ADIFF, ANEU, TSH, FT4, CMP, GFR #### [address] [address] #### HCV1 #### [address] [address] HCVon 01-21-2023 Hep C Ab Non-Reactive Normal Non-Reactiv e [facility] ([place]) Comment on above: Performed By: #### L IPID, LDLDCT, CBC, ADIFF, ANEU, TSH, FT4, CMP, GFR ####[address] [address]#### HCV1 ####[place] [address] Hep C Ab Int Normal [facility] ([place]) Comment on above: Result Comment: Nonr eactive: Samples with a value < 0.80 are considered nonreactive (negative) for antibodies to HCV. A negative test result does not exclude the possibility of exposure to or infection with HCV. HCV antibodies may be undetectable in some stages of the infection and in some clinical conditions. See Interp Performed By: #### L IPID, LDLDCT, CBC, ADIFF, ANEU, TSH, FT4, CMP, GFR ####[address] [address]#### HCV1 ####[place] [address] LABORATORYOrdered By: SYSTEM SYSTEM on 01-21-2023 Albumin BCP dye [Mass/Vol] 3.8 G/dL Invalid Interpretation Code 3.4 - 4.8 G/dL AO ADM SS Albumin/Globulin [Mass ratio] 1.3 {ratio} Invalid Interpretation Code 1.1 - 2.5 ratio AO ADM SS ALP [Catalytic activity/Vol] 60 U/L Invalid Interpretation Code 40 - 135 U/L AO ADM SS ALT With P-5'-P [Catalytic activity/Vol] 26 U/L Invalid Interpretation Code 16 - 63 U/L AO ADM SS AST With P-5'-P [Catalytic activity/Vol] 15 U/L Invalid Interpretation Code 10 - 40 U/L AO ADM SS Basophil, Absolute 0.0 103/mcL Invalid Interpretation Code 0.0 - 0.2 10^3/mcL AO Workflow SS Basophils/100 WBC (Bld) 1.2 % Invalid Interpretation Code 0.0 - 2.5 % AO Workflow SS Bilirubin [Mass/Vol] 0.6 mg/dL Invalid Interpretation Code 0.2 - 1.0 mg/dL AO ADM SS Comment on above: Interpretive Data: U se of this assay is not recommended for patients undergoing treatment with eltrombopag due to the potential for falsely elevated results. Calcium [Mass/Vol] 9.4 mg/dL Invalid Interpretation Code 8.4 - 10.2 mg/dL AO ADM SS Chloride [Moles/Vol] 104 mmol/L Invalid Interpretation Code 98 - 107 mmol/L AO ADM SS CO2 [Moles/Vol] 30 mmol/L Invalid Interpretation Code 23 - 31 mmol/L AO ADM SS Creatinine [Mass/Vol] 0.80 mg/dL Invalid Interpretation Code 0.70 - 1.30 mg/dL AO ADM SS Electrolyte Balance 9.0 mEq/L Invalid Interpretation Code 4.0 - 15.0 mEq/L AO ADM SS Eosinophil, Absolute 0.1 103/mcL Invalid Interpretation Code 0.0 - 0.4 10^3/mcL AO Workflow SS Eosinophils/100 WBC (Bld) 2.9 % Invalid Interpretation Code 0.0 - 7.0 % AO Workflow SS Erythrocyte distribution width (RBC) [Ratio] 13.2 % Invalid Interpretation Code 11.5 - 14.5 % AO Workflow SS Free T4 [Mass/Vol] 0.95 ng/dL Invalid Interpretation Code 0.76 - 1.46 ng/dL AO ADM SS GFR/1.73 sq M.predicted among blacks MDRD (S/P/Bld) [Vol rate/Area] 120 ml/min/1.73sqm Invalid Interpretation Code AO Chemistry S Comment on above: Interpretive Data: GFR Population mean for , Non- Americans Ages 20-29 = 116 mL/min/1.73 sq.m. Ages 30-39 = 107 mL/min/1.73 sq.m. Ages 40-49 = 99 mL/min/1.73 sq.m. Ages 50-59 = 93 mL/min/1.73 sq.m. Ages 60-69 = 85 mL/min/1.73 sq.m. Ages 70+ = 75 mL/min/1.73 sq.m. Chronic Kidney Disease: Less than 60 mL/min/1.73 square meters End Stage Renal Disease: Less than 15 mL/min/1.73 square meters GFR/1.73 sq M.predicted among non-blacks MDRD (S/P/Bld) [Vol rate/Area] 99 ml/min/1.73sqm Invalid Interpretation Code AO Chemistry S Comment on above: Interpretive Data: GFR Population mean for , Non- Americans Ages 20-29 = 116 mL/min/1.73 sq.m. Ages 30-39 = 107 mL/min/1.73 sq.m. Ages 40-49 = 99 mL/min/1.73 sq.m. Ages 50-59 = 93 mL/min/1.73 sq.m. Ages 60-69 = 85 mL/min/1.73 sq.m. Ages 70+ = 75 mL/min/1.73 sq.m. Chronic Kidney Disease: Less than 60 mL/min/1.73 square meters End Stage Renal Disease: Less than 15 mL/min/1.73 square meters Globulin 2.9 G/dL Invalid Interpretation Code AO ADM SS Glucose [Mass/Vol] 102 mg/dL Invalid Interpretation Code 80 - 115 mg/dL AO ADM SS Hematocrit (Bld) [Volume fraction] 38.6 % Invalid Interpretation Code 42.0 - 52.0 % AO Workflow SS Hemoglobin (Bld) [Mass/Vol] 13.6 G/dL Invalid Interpretation Code 14.0 - 18.0 G/dL AO Workflow SS Lymphocyte, Absolute 0.7 103/mcL Invalid Interpretation Code 0.8 - 3.9 10^3/mcL AO Workflow SS Lymphocytes/100 WBC (Bld) 18.4 % Invalid Interpretation Code 10.0 - 50.0 % AO Workflow SS MCH (RBC) [Entitic mass] 32.0 pg Invalid Interpretation Code 27.0 - 31.2 pg AO Workflow SS MCHC 35.3 G/dL Invalid Interpretation Code 31.8 - 35.4 G/dL AO Workflow SS MCV (RBC) [Entitic vol] 90.6 fL Invalid Interpretation Code 80.0 - 94.0 fL AO Workflow SS Monocyte, Absolute 0.3 103/mcL Invalid Interpretation Code 0.2 - 1.0 10^3/mcL AO Workflow SS Monocytes/100 WBC (Bld) 8.2 % Invalid Interpretation Code 1.7 - 13.0 % AO Workflow SS Neutrophil, Absolute 2.7 103/mcL Invalid Interpretation Code 2.9 - 6.2 10^3/mcL AO Workflow SS Neutrophils/100 WBC (Bld) 69.3 % Invalid Interpretation Code 37.0 - 80.0 % AO Workflow SS Platelet mean volume (Bld) [Entitic vol] 8.3 fL Invalid Interpretation Code 7.4 - 10.4 fL AO Workflow SS Platelets (Bld) [#/Vol] 194 103/mcL Invalid Interpretation Code 130 - 400 10^3/mcL AO Workflow SS Potassium [Moles/Vol] 4.3 mmol/L Invalid Interpretation Code 3.5 - 5.1 mmol/L AO ADM SS Protein [Mass/Vol] 6.7 G/dL Invalid Interpretation Code 6.4 - 8.2 G/dL AO ADM SS RBC (Bld) [#/Vol] 4.25 106/mcL Invalid Interpretation Code 4.04 - 6.13 10^6/mcL AO Workflow SS Sodium [Moles/Vol] 143 mmol/L Invalid Interpretation Code 136 - 145 mmol/L AO ADM SS TSH Qn 1.72 m[IU]/L Invalid Interpretation Code 0.36 - 3.74 mcIU/mL AO ADM SS Urea nitrogen [Mass/Vol] 13 mg/dL Invalid Interpretation Code 7 - 18 mg/dL AO ADM SS Urea nitrogen/Creatinine [Mass ratio] 16 ratio Invalid Interpretation Code 7 - 27 ratio AO ADM SS WBC (Bld) [#/Vol] 3.9 103/mcL Invalid Interpretation Code 4.6 - 10.8 10^3/mcL AO Workflow SS LABORATORYOrdered By: Frankie Maya on 01-21-2023 Cholesterol [Mass/Vol] 219 mg/dL Invalid Interpretation Code 0 - 200 mg/dL AO ADM SS Comment on above: Interpretive Data: C holesterol Reference Interval: Less than 200 Desirable 200-239 Borderline high risk 240 and above High risk Cholesterol in HDL [Mass/Vol] 69 mg/dL Invalid Interpretation Code 40 - 60 mg/dL AO ADM SS Cholesterol in LDL [Mass/Vol] 133 mg/dL Invalid Interpretation Code 0 - 130 mg/dL AO ADM SS Triglyceride [Mass/Vol] 87 mg/dL Invalid Interpretation Code 0 - 150 mg/dL AO ADM SS Comment on above: Interpretive Data: T riglyceride Reference Interval: Less than 150 Normal 150-199 Borderline high risk 200-499 High risk 500 or higher Very high risk LABORATORYOrdered By: Stephanie Wynn amroc on 01-21-2023 HCV Ab IA Ql Non-Reactive (01/21/23 10:51 AM) Invalid Interpretation Code Non-Reactiv e ADM SS HCV Ab IA Ql Nonreactive: Samples with a value < 0.80 are considered nonreactive (negative) for antibodies to HCV.A negative test result does not exclude the possibility of exposure to or infection with HCV. HCV antibodies may be undetectable in some stages of the infection and in some clinical conditions. Invalid Interpretation Code Chemistry S LABORATORYOrdered By: GABI SERRA CONTRIBUTOR_SYSTEM on 01-21-2023 LDL Cholesterol Direct 133 mg/dL Invalid Interpretation Code <100 AO Sendouts SS Comment on above: Result Comment: <100 mg/dL, Optimal 100-129 mg/dL, Near optimal/above optimal 130-159 mg/dL, Borderline high 160-189 mg/dL, High >189 mg/dL, Very high Secondary prevention optimal LDL Cholesterol levels are recommended to be < 70 mg/dL Performed By: [facility] [address] [place] [address] Lead Neurodiagnostic Technologist: Gabe Kebede III, M.D. CLIA#: [id number] VLDL Cholesterol See Below Invalid Interpretation Code AO Sendouts SS Comment on above: Result Comment: Test not indicated. Performed By: [facility] [address] [place] [address] Lead Neurodiagnostic Technologist: Gabe Kebede III, M.D. CLIA#: [id number] LIPIDon 01-21-2023 Cholesterol [Mass/Vol] 219 mg/dL High 0-200 [facility] ([place]) Comment on above: Result Comment: Chol esterol Reference Interval: Less than 200 Desirable 200-239 Borderline high risk 240 and above High risk Performed By: #### L IPID, LDLDCT, CBC, ADIFF, ANEU, TSH, FT4, CMP, GFR ####[address] [place], [place] [address]#### HCV1 ####[place] [address] [address] Cholesterol in HDL [Mass/Vol] 69 mg/dL High 40-60 [facility] ([place]) Comment on above: Performed By: #### L IPID, LDLDCT, CBC, ADIFF, ANEU, TSH, FT4, CMP, GFR ####[place] [address]#### HCV1 ####[place] [address] Cholesterol in LDL [Mass/Vol] 133 mg/dL High 0-130 [facility] ([place]) Comment on above: Performed By: #### L IPID, LDLDCT, CBC, ADIFF, ANEU, TSH, FT4, CMP, GFR ####[place] [address]#### HCV1 ####[place] [address] Triglyceride [Mass/Vol] 87 mg/dL Normal 0-150 A [facility] ([place]) Comment on above: Result Comment: Trig lyceride Reference Interval: Less than 150 Normal 150-199 Borderline high risk 200-499 High risk 500 or higher Very high risk Performed By: #### L IPID, LDLDCT, CBC, ADIFF, ANEU, TSH, FT4, CMP, GFR ####[place] [address]#### HCV1 ####[place] [address] TSHon 01-21-2023 TSH Qn 1.72 m[IU]/L Normal 0.36-3.74 [facility] ([place]) Comment on above: Performed By: #### L IPID, LDLDCT, CBC, ADIFF, ANEU, TSH, FT4, CMP, GFR #### [address] [address] #### HCV1 #### [place] [address] No Panel InformationOrdered By: Seth Santamaria on 12-05-2022 Prostate Specific Antigen Total 0.41 ng/mL 0.0-4.0 [facility] Comment on above: This test was perfor med using the TPSA assay method for the[employer] chemistry system. Values obtained with differentassay methods cannot be used interchangably.When changing PSA assays in the course of monitoring apatient, additional sequential testing should be carriedout to confirm baseline values. No Panel InformationOrdered By: Dr. Santamaria on 08-28-2022 Prostate Specific Antigen Total 0.18 ng/mL 0.0-4.0 [facility] Comment on above: This test was perfor med using the TPSA assay method for the[employer] chemistry system. Values obtained with differentassay methods cannot be used interchangably.When changing PSA assays in the course of monitoring apatient, additional sequential testing should be carriedout to confirm baseline values. No Panel InformationOrdered By: Dr. Santamaria on 05-24-2022 Prostate Specific Antigen Total 1.86 ng/mL 0.0-4.0 [facility] Comment on above: This test was perfor med using the TPSA assay method for the[employer] chemistry system. Values obtained with differentassay methods cannot be used interchangably.When changing PSA assays in the course of monitoring apatient, additional sequential testing should be carriedout to confirm baseline values. LABORATORYOrdered By: Frankie Schaeffer on 03-08-2022 Albumin BCP dye [Mass/Vol] 3.8 G/dL Invalid Interpretation Code 3.5 - 5.0 G/dL AO ADM SS Albumin/Globulin [Mass ratio] 1.4 {ratio} Invalid Interpretation Code 1.1 - 2.5 ratio AO ADM SS ALP [Catalytic activity/Vol] 50 U/L Invalid Interpretation Code 40 - 135 U/L AO ADM SS ALT With P-5'-P [Catalytic activity/Vol] 39 U/L Invalid Interpretation Code 16 - 63 U/L AO ADM SS Amylase [Catalytic activity/Vol] 41 U/L Invalid Interpretation Code 25 - 115 U/L AO ADM SS AST With P-5'-P [Catalytic activity/Vol] 22 U/L Invalid Interpretation Code 10 - 40 U/L AO ADM SS Bilirubin [Mass/Vol] 0.5 mg/dL Invalid Interpretation Code 0.2 - 1.0 mg/dL AO ADM SS Calcium [Mass/Vol] 9.3 mg/dL Invalid Interpretation Code 8.4 - 10.2 mg/dL AO ADM SS Chloride [Moles/Vol] 107 mmol/L Invalid Interpretation Code 98 - 107 mmol/L AO ADM SS CO2 [Moles/Vol] 28 mmol/L Invalid Interpretation Code 22 - 29 mmol/L AO ADM SS Creatinine [Mass/Vol] 0.78 mg/dL Invalid Interpretation Code 0.70 - 1.30 mg/dL AO ADM SS Electrolyte Balance 9.0 mEq/L Invalid Interpretation Code 4.0 - 15.0 mEq/L AO ADM SS Globulin 2.7 G/dL Invalid Interpretation Code AO ADM SS Glucose [Mass/Vol] 88 mg/dL Invalid Interpretation Code 70 - 105 mg/dL AO ADM SS Lipase [Catalytic activity/Vol] 21 U/L Invalid Interpretation Code 16 - 77 U/L AO ADM SS Potassium [Moles/Vol] 3.8 mmol/L Invalid Interpretation Code 3.5 - 5.1 mmol/L AO ADM SS Protein [Mass/Vol] 6.5 G/dL Invalid Interpretation Code 6.4 - 8.2 G/dL AO ADM SS Sodium [Moles/Vol] 144 mmol/L Invalid Interpretation Code 136 - 145 mmol/L AO ADM SS Urea nitrogen [Mass/Vol] 16 mg/dL Invalid Interpretation Code 7 - 18 mg/dL AO ADM SS Urea nitrogen/Creatinine [Mass ratio] 21 ratio Invalid Interpretation Code 7 - 27 ratio AO ADM SS LABORATORYOrdered By: Ave Atkins on 03-08-2022 Basophil, Absolute 0.0 103/mcL Invalid Interpretation Code 0.0 - 0.2 10^3/mcL AO Workflow SS Basophils/100 WBC (Bld) 0.7 % Invalid Interpretation Code 0.0 - 2.5 % AO Workflow SS Eosinophil, Absolute 0.1 103/mcL Invalid Interpretation Code 0.0 - 0.4 10^3/mcL AO Workflow SS Eosinophils/100 WBC (Bld) 2.7 % Invalid Interpretation Code 0.0 - 7.0 % AO Workflow SS Erythrocyte distribution width (RBC) [Ratio] 12.8 % Invalid Interpretation Code 11.5 - 14.5 % AO Workflow SS Hematocrit (Bld) [Volume fraction] 39.8 % Invalid Interpretation Code 42.0 - 52.0 % AO Workflow SS Hemoglobin (Bld) [Mass/Vol] 13.8 G/dL Invalid Interpretation Code 14.0 - 18.0 G/dL AO Workflow SS Lymphocyte, Absolute 0.6 103/mcL Invalid Interpretation Code 0.8 - 3.9 10^3/mcL AO Workflow SS Lymphocytes/100 WBC (Bld) 11.6 % Invalid Interpretation Code 10.0 - 50.0 % AO Workflow SS MCH (RBC) [Entitic mass] 31.4 pg Invalid Interpretation Code 27.0 - 31.2 pg AO Workflow SS MCHC 34.6 G/dL Invalid Interpretation Code 31.8 - 35.4 G/dL AO Workflow SS MCV (RBC) [Entitic vol] 90.7 fL Invalid Interpretation Code 80.0 - 94.0 fL AO Workflow SS Monocyte, Absolute 0.6 103/mcL Invalid Interpretation Code 0.2 - 1.0 10^3/mcL AO Workflow SS Monocytes/100 WBC (Bld) 11.0 % Invalid Interpretation Code 1.7 - 13.0 % AO Workflow SS Neutrophil, Absolute 3.9 103/mcL Invalid Interpretation Code 2.9 - 6.2 10^3/mcL AO Workflow SS Neutrophils/100 WBC (Bld) 74.0 % Invalid Interpretation Code 37.0 - 80.0 % AO Workflow SS Platelet mean volume (Bld) [Entitic vol] 7.7 fL Invalid Interpretation Code 7.4 - 10.4 fL AO Workflow SS Platelets (Bld) [#/Vol] 211 103/mcL Invalid Interpretation Code 130 - 400 10^3/mcL AO Workflow SS RBC (Bld) [#/Vol] 4.38 106/mcL Invalid Interpretation Code 4.04 - 6.13 10^6/mcL AO Workflow SS WBC (Bld) [#/Vol] 5.2 103/mcL Invalid Interpretation Code 4.6 - 10.8 10^3/mcL AO Workflow SS LABORATORYOrdered By: SYSTEM SYSTEM on 03-08-2022 GFR 123 ml/min/1.73sqm Invalid Interpretation Code AO Chemistry S GFR Non- 102 ml/min/1.73sqm Invalid Interpretation Code AO Chemistry S No Panel InformationOrdered By: Dr. Santamaria on 02-12-2022 Prostate Specific Antigen Total 0.39 ng/mL 0.0-4.0 [facility] Comment on above: This test was perfor med using the TPSA assay method for the[employer] chemistry system. Values obtained with differentassay methods cannot be used interchangably.When changing PSA assays in the course of monitoring apatient, additional sequential testing should be carriedout to confirm baseline values. No Panel Informationon 11-09 Prostate Specific Antigen Total 0.29 ng/mL 0.0-4.0 [facility] Work Phone: Comment on above: This test was perfor med using the TPSA assay method for [employer] chemistry system. Values obtained with differentassay methods cannot be used interchangably.When changing PSA assays in the course of monitoring apatient, additional sequential testing should be carriedout to confirm baseline values. 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 Borrero at [place], with plan to receive 20 fractions delivering [...] minimize dose to adjacent tissues. quality assurance group leader checks were performed on the plan. The patient was immobilized utilizing the [employer] stereotactic body frame. Cone beam CT centered [...] approximately 4-8 weeks. Sukumar Whitfield MD, PhD Acid Tank [employer] Department of Radiation Oncology [facility] Radiology Study observation (narrative) [facility] No Panel Informationon 09-11 Estimated GFR (MDRD) Amer 106 mL/min >60 [facility] Comment on above: GFR Calc Estimated GFR (MDRD) Non-Af Amer 87 mL/min >60 [facility] Comment on above: Non- GFR Calc Serum or plasma creatinine m easurement (mass/volume)on 09-11-2021 Creatinine [Mass/Vol] 0.94 mg/dL 0.70-1.30 [facility] Comment on above: The validity of the calculated GFR & GFRAA in patients over 70 years has not been determined. Clinical correlation is essential. No Panel Informationon 08-08 Prostate Specific Antigen Total 0.34 ng/mL 0.0-4.0 [facility] Work Phone: Comment on above: This test was perfor med using the TPSA assay method for the[employer] chemistry system. Values obtained with differentassay methods cannot be used interchangably.When changing PSA assays in the course of monitoring apatient, additional sequential testing should be carriedout to confirm baseline values. No Panel Informationon 04-24 Prostate Specific Antigen Total 0.16 ng/mL 0.0-4.0 [facility] Work Phone: Comment on above: This test was perfor med using the TPSA assay method for the[employer] chemistry system. Values obtained with differentassay methods cannot be used interchangably.When changing PSA assays in the course of monitoring apatient, additional sequential testing should be carriedout to confirm baseline values. LABORATORYOrdered By: Aishwarya Rodriguez on 03-02-2021 Albumin BCP dye [Mass/Vol] 3.6 G/dL Invalid Interpretation Code 3.5 - 5.0 G/dL AO ADM SS Albumin/Globulin [Mass ratio] 1.3 {ratio} Invalid Interpretation Code 1.1 - 2.5 ratio AO ADM SS ALP [Catalytic activity/Vol] 53 U/L Invalid Interpretation Code 40 - 135 U/L AO ADM SS ALT With P-5'-P [Catalytic activity/Vol] 49 U/L Invalid Interpretation Code 16 - 63 U/L AO ADM SS AST With P-5'-P [Catalytic activity/Vol] 24 U/L Invalid Interpretation Code 10 - 40 U/L AO ADM SS Bilirubin [Mass/Vol] 0.7 mg/dL Invalid Interpretation Code 0.2 - 1.0 mg/dL AO ADM SS Calcium [Mass/Vol] 9.2 mg/dL Invalid Interpretation Code 8.4 - 10.2 mg/dL AO ADM SS Chloride [Moles/Vol] 107 mmol/L Invalid Interpretation Code 98 - 107 mmol/L AO ADM SS Cholesterol [Mass/Vol] 213 mg/dL Invalid Interpretation Code 0 - 200 mg/dL AO ADM SS Cholesterol in HDL [Mass/Vol] 70 mg/dL Invalid Interpretation Code 40 - 60 mg/dL AO ADM SS Cholesterol in LDL [Mass/Vol] 127 mg/dL Invalid Interpretation Code 0 - 130 mg/dL AO ADM SS CO2 [Moles/Vol] 34 mmol/L Invalid Interpretation Code 22 - 29 mmol/L AO ADM SS Creatinine [Mass/Vol] 0.73 mg/dL Invalid Interpretation Code 0.70 - 1.30 mg/dL AO ADM SS Electrolyte Balance 4.0 mEq/L Invalid Interpretation Code AO ADM SS Erythrocyte distribution width (RBC) [Ratio] 13.9 % Invalid Interpretation Code 11.5 - 14.5 % AO Auto Heme SS Globulin 2.8 G/dL Invalid Interpretation Code AO ADM SS Glucose [Mass/Vol] 86 mg/dL Invalid Interpretation Code 70 - 105 mg/dL AO ADM SS Hematocrit (Bld) [Volume fraction] 38.5 % Invalid Interpretation Code 42.0 - 52.0 % AO Auto Heme SS Hemoglobin (Bld) [Mass/Vol] 13.4 G/dL Invalid Interpretation Code 14.0 - 18.0 G/dL AO Auto Heme SS MCH (RBC) [Entitic mass] 32.6 pg Invalid Interpretation Code 27.0 - 31.2 pg AO Auto Heme SS MCHC (RBC) [Mass/Vol] 34.8 G/dL Invalid Interpretation Code 31.8 - 35.4 G/dL AO Auto Heme SS MCV (RBC) [Entitic vol] 93.8 fL Invalid Interpretation Code 80.0 - 94.0 fL AO Auto Heme SS Platelet mean volume (Bld) [Entitic vol] 8.4 fL Invalid Interpretation Code 7.4 - 10.4 fL AO Auto Heme SS Platelets (Bld) [#/Vol] 192 103/mcL Invalid Interpretation Code 130 - 400 10^3/mcL AO Auto Heme SS Potassium [Moles/Vol] 3.8 mmol/L Invalid Interpretation Code 3.5 - 5.1 mmol/L AO ADM SS Protein [Mass/Vol] 6.4 G/dL Invalid Interpretation Code 6.4 - 8.2 G/dL AO ADM SS RBC (Bld) [#/Vol] 4.10 106/mcL Invalid Interpretation Code 4.04 - 6.13 10^6/mcL AO Auto Heme SS Sodium [Moles/Vol] 145 mmol/L Invalid Interpretation Code 136 - 145 mmol/L AO ADM SS Triglyceride [Mass/Vol] 82 mg/dL Invalid Interpretation Code 0 - 150 mg/dL AO ADM SS TSH Qn 1.84 m[IU]/L Invalid Interpretation Code 0.36 - 3.74 mcIU/mL AO ADM SS Urea nitrogen [Mass/Vol] 16 mg/dL Invalid Interpretation Code 7 - 18 mg/dL AO ADM SS Urea nitrogen/Creatinine [Mass ratio] 22 ratio Invalid Interpretation Code 7 - 27 ratio AO ADM SS WBC (Bld) [#/Vol] 2.90 103/mcL Invalid Interpretation Code 4.60 - 10.80 10^3/mcL AO Auto Heme SS LABORATORYOrdered By: Frankie Maya on 03-02-2021 Basophil %, Manual 0.0 1 Invalid Interpretation Code 0.0 - 2.5 % AO Auto Heme SS Basophil, Abs Manual 0.00 103/mcL Invalid Interpretation Code 0.00 - 0.19 10^3/mcL AO Auto Heme SS Eosinophil %, Manual 13.0 1 Invalid Interpretation Code 0.0 - 7.0 % AO Auto Heme SS Eosinophil, Abs Manual 0.38 103/mcL Invalid Interpretation Code 0.00 - 0.40 10^3/mcL AO Auto Heme SS Lymphocyte %, Manual 25.0 1 Invalid Interpretation Code 10.0 - 50.0 % AO Auto Heme SS Lymphocyte, Abs Manual 0.72 103/mcL Invalid Interpretation Code 0.77 - 3.85 10^3/mcL AO Auto Heme SS Monocyte %, Manual 13.0 1 Invalid Interpretation Code 1.7 - 13.0 % AO Auto Heme SS Monocyte, Abs Manual 0.38 103/mcL Invalid Interpretation Code 0.15 - 1.00 10^3/mcL AO Auto Heme SS Neutrophil %, Manual 49.0 1 Invalid Interpretation Code 37.0 - 80.0 % AO Auto Heme SS Neutrophil, Abs Manual 1.42 103/mcL Invalid Interpretation Code 2.85 - 6.16 10^3/mcL AO Auto Heme SS Platelet Estimate Normal (03/02/21 7:20 AM) Invalid Interpretation Code AO Auto Heme SS LABORATORYOrdered By: SYSTEM SYSTEM on 03-02-2021 GFR 134 ml/min/1.73sqm Invalid Interpretation Code AO Chemistry S GFR Non- 110 ml/min/1.73sqm Invalid Interpretation Code AO Chemistry S Vital Signs Date Time Vital Sign Value Performing Clinician Facility 02-03-2025 11:32-0400 Body mass index (BMI) [Ratio] 29.1 kg/m2 Dr. Carlitos Brewer DO Work Phone: [facility] 02-03-2025 11:32-0400 Body weight 94.[address] Carlitos Brewer DO Work Phone: [facility] 02-03-2025 11:32-0400 Diastolic blood pressure 67 mm[Hg] Dr. Carlitos Brewer DO Work Phone: [facility] 02-03-2025 11:32-0400 Heart rate 72 /min Dr. Carlitos Brewer DO Work Phone: [facility] 02-03-2025 11:32-0400 Respiratory rate 20 /min Dr. Carlitos Brewer DO Work Phone: [facility] 02-03-2025 11:32-0400 SaO2% (BldA) [Mass fraction] 96 % Dr. Carlitos Brewer DO Work Phone: [facility] 02-03-2025 11:32-0400 Systolic blood pressure 103 mm[Hg] Dr. Carlitos Brewer DO Work Phone: [facility] 2024 14:47-0400 Body height 180.[address] Carlitos Brewer DO Work Phone: [facility] 2024 14:47-0400 Body mass index (BMI) [Ratio] 29.2 kg/m2 Dr. Carlitos Brewer DO Work Phone: [facility] 2024 14:47-0400 Body temperature 98.4 [degF] Dr. Carlitos Brewer DO Work Phone: [facility] 2024 14:47-0400 Body weight 95.[address] Carlitos Brewer DO Work Phone: [facility] 2024 14:47-0400 Diastolic blood pressure 67 mm[Hg] Dr. Carlitos Brewer DO Work Phone: [facility] 2024 14:47-0400 Heart rate 84 /min Dr. Carlitos Brewer DO Work Phone: [facility] 2024 14:47-0400 Respiratory rate 16 /min Dr. Carlitos Brewer DO Work Phone: [facility] 2024 14:47-0400 SaO2% (BldA) [Mass fraction] 93 % Dr. Carlitos Brewer DO Work Phone: [facility] 2024 14:47-0400 Systolic blood pressure 94 mm[Hg] Dr. Carlitos Brewer DO Work Phone: [facility] 11-04-2024 10:11-0400 Body height 180.[address] Carlitos Brewer DO Work Phone: [facility] 11-04-2024 10:11-0400 Body mass index (BMI) [Ratio] 30.5 kg/m2 Dr. Carlitos Brewer DO Work Phone: [facility] 11-04-2024 10:11-0400 Body temperature 96.7 [degF] Dr. Carlitos Brewer DO Work Phone: [facility] 11-04-2024 10:11-0400 Body weight 99.[address] Carlitos Brewer DO Work Phone: [facility] 11-04-2024 10:11-0400 Diastolic blood pressure 89 mm[Hg] Dr. Carlitos Brewer DO Work Phone: [facility] 11-04-2024 10:11-0400 Heart rate 75 /min Dr. Carlitos Brewer DO Work Phone: [facility] 11-04-2024 10:11-0400 Respiratory rate 16 /min Dr. Carlitos Brewer DO Work Phone: [facility] 11-04-2024 10:11-0400 SaO2% (BldA) [Mass fraction] 93 % Dr. Carlitos Brewer DO Work Phone: [facility] 11-04-2024 10:11-0400 Systolic blood pressure 134 mm[Hg] Dr. Carlitos Brewer DO Work Phone: [facility] 11-01-2024 10:48-0400 Body height 182.9 cm Yan Scherer MD, PhD Work Phone: [phone] [place] [address] Comment on above: patient state height 11-01-2024 10:48-0400 Body mass index (BMI) [Ratio] 29.24 kg/m2 Yan Scherer MD, PhD Work Phone: [facility] 11-01-2024 10:48-0400 Body temperature 97.59 [degF] Yan Scherer MD, PhD Work Phone: [facility] 11-01-2024 10:48-0400 Body weight 97.8 kg Yan Scherer MD, PhD Work Phone: [facility] Comment on above: WITH SHOES 11-01-2024 10:48-0400 Diastolic blood pressure 58 mm[Hg] Yan Scherer MD, PhD Work Phone: [facility] Comment on above: NOTIFY RUBA MAR 11-01-2024 10:48-0400 Heart rate 75 /min Yan Scherer MD, PhD Work Phone: [facility] 11-01-2024 10:48-0400 Respiratory rate 18 /min Yan Scherer MD, PhD Work Phone: [facility] 11-01-2024 10:48-0400 SaO2% (BldA) [Mass fraction] 95 % Yan Scherer MD, PhD Work Phone: [facility] 11-01-2024 10:48-0400 Systolic blood pressure 99 mm[Hg] Yan Schreer MD, PhD Work Phone: [facility] Comment on above: NOTIFY RUBA MAR 10-26-2024 18:50-0400 SaO2% (BldA) [Mass fraction] 95 % Dr. Carlitos Brewer DO Work Phone: [facility] 10-26-2024 18:00-0400 Body temperature 97.4 [degF] Dr. Carlitos Brewer DO Work Phone: [facility] 10-26-2024 18:00-0400 Diastolic blood pressure 82 mm[Hg] Dr. Carlitos Brewer DO Work Phone: [facility] 10-26-2024 18:00-0400 Heart rate 77 /min Dr. Carlitos Brewer DO Work Phone: [facility] 10-26-2024 18:00-0400 Respiratory rate 16 /min Dr. Carlitos Brewer DO Work Phone: [facility] 10-26-2024 18:00-0400 Systolic blood pressure 115 mm[Hg] Dr. Carlitos Brewer DO Work Phone: [facility] 10-26-2024 17:15-0400 Inhaled oxygen flow rate 2 L/min Dr. Carltios Brewre DO Work Phone: [facility] 10-26-2024 12:03-0400 Body height 180.[address] Carlitos Brewer DO Work Phone: [facility] 10-26-2024 12:03-0400 Body mass index (BMI) [Ratio] 30.1 kg/m2 Dr. Carlitos Brewer DO Work Phone: [facility] 10-26-2024 12:03-0400 Body weight [address] Carlitos Brewer DO Work Phone: [facility] 10-19-2024 16:25-0400 Body height 180.[address] Carlitos Brewer DO Work Phone: [facility] 10-19-2024 16:25-0400 Body mass index (BMI) [Ratio] 31.2 kg/m2 Dr. Carlitos Brewer DO Work Phone: [facility] 10-19-2024 16:25-0400 Body temperature 97.3 [degF] Dr. Carlitos Brewer DO Work Phone: [facility] 10-19-2024 16:25-0400 Body weight 101.[address] Carlitos Brewer DO Work Phone: [facility] 10-19-2024 16:25-0400 Diastolic blood pressure 79 mm[Hg] Dr. Carlitos Brewer DO Work Phone: [facility] 10-19-2024 16:25-0400 Heart rate 69 /min Dr. Carlitos Brewer DO Work Phone: [facility] 10-19-2024 16:25-0400 Respiratory rate 18 /min Dr. Carlitos Brewer DO Work Phone: [facility] 10-19-2024 16:25-0400 SaO2% (BldA) [Mass fraction] 93 % Dr. Carlitos Brewer DO Work Phone: [facility] 10-19-2024 16:25-0400 Systolic blood pressure 119 mm[Hg] Dr. Carlitos Brewer DO Work Phone: [facility] 10-13-2024 08:47-0400 Body temperature 97.8 [degF] Dr. Carlitos Brewer DO Work Phone: [facility] 10-13-2024 08:47-0400 Diastolic blood pressure 74 mm[Hg] Dr. Carlitos Brewer DO Work Phone: [facility] 10-13-2024 08:47-0400 Heart rate 66 /min Dr. Carlitos Brewer DO Work Phone: [facility] 10-13-2024 08:47-0400 Respiratory rate 18 /min Dr. Carlitos Brewer DO Work Phone: [facility] 10-13-2024 08:47-0400 SaO2% (BldA) [Mass fraction] 96 % Dr. Carlitos Brewer DO Work Phone: [facility] 10-13-2024 08:47-0400 Systolic blood pressure 122 mm[Hg] Dr. Carlitos Brewer DO Work Phone: [facility] 10-12-2024 09:50-0400 Inhaled oxygen flow rate 4 L/min Dr. Carlitos Brewer DO Work Phone: [facility] 10-11-2024 13:52-0400 Body height 180.[address] Carlitos Brewer DO Work Phone: [facility] 10-11-2024 13:52-0400 Body weight 99.[address] Carlitos Brewer DO Work Phone: [facility] 10-11-2024 12:53-0400 Body mass index (BMI) [Ratio] 30.7 kg/m2 Dr. Carlitos Brewer DO Work Phone: [facility] 10-11-2024 12:26-0400 Body temperature 98.3 [degF] Dr. Carlitos Brewer DO Work Phone: [facility] 10-11-2024 12:26-0400 Diastolic blood pressure 64 mm[Hg] Dr. Carlitos Brewer DO Work Phone: [facility] 10-11-2024 12:26-0400 Heart rate 88 /min Dr. Carlitos Brewer DO Work Phone: [facility] 10-11-2024 12:26-0400 Respiratory rate 16 /min Dr. Carlitos Brewer DO Work Phone: [facility] 10-11-2024 12:26-0400 SaO2% (BldA) [Mass fraction] 98 % Dr. Carlitos Brewer DO Work Phone: [facility] 10-11-2024 12:26-0400 Systolic blood pressure 96 mm[Hg] Dr. Carlitos Brewer DO Work Phone: [facility] 10-11-2024 07:05-0400 Body mass index (BMI) [Ratio] 31.7 kg/m2 Dr. Carlitos Brewer DO Work Phone: [facility] 10-11-2024 07:05-0400 Body weight 100.[address] Carlitos Brewer DO Work Phone: [facility] 09-08-2024 13:38-0400 Body height 177.[address] Calritos Brewer DO Work Phone: [facility] 09-08-2024 13:38-0400 Body mass index (BMI) [Ratio] 33 kg/m2 Dr. Carlitos Brewer DO Work Phone: [facility] 09-08-2024 13:38-0400 Body temperature 97.8 [degF] Dr. Carlitos Brewer DO Work Phone: [facility] 09-08-2024 13:38-0400 Body weight 104.[address] Carlitos Brewer DO Work Phone: [facility] 09-08-2024 13:38-0400 Diastolic blood pressure 81 mm[Hg] Dr. Carlitos Brewer DO Work Phone: [facility] 09-08-2024 13:38-0400 Heart rate 68 /min Dr. Carlitos Brewer DO Work Phone: [facility] 09-08-2024 13:38-0400 Respiratory rate 16 /min Dr. Carlitos Brewer DO Work Phone: [facility] 09-08-2024 13:38-0400 SaO2% (BldA) [Mass fraction] 96 % Dr. Carlitos Brewer DO Work Phone: [facility] 09-08-2024 13:38-0400 Systolic blood pressure 122 mm[Hg] Dr. Carlitos Brewer DO Work Phone: [facility] 09-01-2024 11:38-0400 Body temperature 96.9 [degF] Dr. Carlitos Brewer DO Work Phone: [facility] 09-01-2024 11:38-0400 Diastolic blood pressure 82 mm[Hg] Dr. Carlitos Brewer DO Work Phone: [facility] 09-01-2024 11:38-0400 Heart rate 62 /min Dr. Carlitos Brewer DO Work Phone: [facility] 09-01-2024 11:38-0400 Respiratory rate 18 /min Dr. Carlitos Brewer DO Work Phone: [facility] 09-01-2024 11:38-0400 SaO2% (BldA) [Mass fraction] 98 % Dr. Carlitos Brewer DO Work Phone: [facility] 09-01-2024 11:38-0400 Systolic blood pressure 125 mm[Hg] Dr. Carlitos Brewer DO Work Phone: [facility] 08-19-2024 15:05-0400 Body mass index (BMI) [Ratio] 33.6 kg/m2 Dr. Carlitos Brewer DO Work Phone: [facility] 08-19-2024 15:05-0400 Body temperature 97.8 [degF] Dr. Carlitos Brewer DO Work Phone: [facility] 08-19-2024 15:05-0400 Body weight 106.[address] Carlitos Brewer DO Work Phone: [facility] 08-19-2024 15:05-0400 Diastolic blood pressure 81 mm[Hg] Dr. Carlitos Brewer DO Work Phone: [facility] 08-19-2024 15:05-0400 Heart rate 65 /min Dr. Carlitos Brewer DO Work Phone: [facility] 08-19-2024 15:05-0400 Respiratory rate 16 /min Dr. Carlitos Brewer DO Work Phone: [facility] 08-19-2024 15:05-0400 SaO2% (BldA) [Mass fraction] 98 % Dr. Carlitos Brewer DO Work Phone: [facility] 08-19-2024 15:05-0400 Systolic blood pressure 122 mm[Hg] Dr. Carlitos Brewer DO Work Phone: [facility] 08-12-2024 16:32-0400 Body temperature 98.4 [degF] Dr. Carlitos Brewer DO Work Phone: [facility] 08-12-2024 16:32-0400 Diastolic blood pressure 84 mm[Hg] Dr. Carlitos Brewer DO Work Phone: [facility] 08-12-2024 16:32-0400 Heart rate 57 /min Dr. Carlitos Brewer DO Work Phone: [facility] 08-12-2024 16:32-0400 Respiratory rate 16 /min Dr. Carlitos Brewer DO Work Phone: [facility] 08-12-2024 16:32-0400 SaO2% (BldA) [Mass fraction] 98 % Dr. Carlitos Brewer DO Work Phone: [facility] 08-12-2024 16:32-0400 Systolic blood pressure 138 mm[Hg] Dr. Carlitos Brewer DO Work Phone: [facility] 08-12-2024 15:04-0400 Body mass index (BMI) [Ratio] 34.6 kg/m2 Dr. Carlitos Brewer DO Work Phone: [facility] 08-12-2024 15:04-0400 Body temperature 97.5 [degF] Dr. Carlitos Brewer DO Work Phone: [facility] 08-12-2024 15:04-0400 Body weight 109.[address] Carlitos Brewer DO Work Phone: [facility] 08-12-2024 15:04-0400 Diastolic blood pressure 86 mm[Hg] Dr. Carlitos Brewer DO Work Phone: [facility] 08-12-2024 15:04-0400 Heart rate 64 /min Dr. Carlitos Brewer DO Work Phone: [facility] 08-12-2024 15:04-0400 Respiratory rate 16 /min Dr. Carlitos Brewer DO Work Phone: [facility] 08-12-2024 15:04-0400 SaO2% (BldA) [Mass fraction] 97 % Dr. Carlitos Brewer DO Work Phone: [facility] 08-12-2024 15:04-0400 Systolic blood pressure 125 mm[Hg] Dr. Carlitos Brewer DO Work Phone: [facility] 08-03-2024 08:59-0400 Body mass index (BMI) [Ratio] 34.1 kg/m2 Dr. Carlitos Brewer DO Work Phone: [facility] 08-03-2024 08:59-0400 Body weight 107.[address] Carlitos Brewer DO Work Phone: [facility] 08-03-2024 08:59-0400 Diastolic blood pressure 80 mm[Hg] Dr. Carlitos Brewer DO Work Phone: [facility] 08-03-2024 08:59-0400 Heart rate 73 /min Dr. Carlitos Brewer DO Work Phone: [facility] 08-03-2024 08:59-0400 Respiratory rate 16 /min Dr. Carlitos Brewer DO Work Phone: [facility] 08-03-2024 08:59-0400 Systolic blood pressure 116 mm[Hg] Dr. Carlitos Brewer DO Work Phone: [facility] 07-01-2024 15:07-0500 Body mass index (BMI) [Ratio] 37.3 kg/m2 Dr. Carlitos Brewer DO Work Phone: [facility] 07-01-2024 15:07-0500 Body temperature 97.1 [degF] Dr. Carlitos Brewer DO Work Phone: [facility] 07-01-2024 15:07-0500 Body weight 117.[address] Carlitos Brewer DO Work Phone: [facility] 07-01-2024 15:07-0500 Diastolic blood pressure 92 mm[Hg] Dr. Carlitos Brewer DO Work Phone: [facility] 07-01-2024 15:07-0500 Heart rate 70 /min Dr. Carlitos Brewer DO Work Phone: [facility] 07-01-2024 15:07-0500 Respiratory rate 16 /min Dr. Carlitos Brewer DO Work Phone: [facility] 07-01-2024 15:07-0500 SaO2% (BldA) [Mass fraction] 96 % Dr. Carlitos Brewer DO Work Phone: [facility] 07-01-2024 15:07-0500 Systolic blood pressure 138 mm[Hg] Dr. Carlitos Brewer DO Work Phone: [facility] 05-31-2024 13:10-0500 Body mass index (BMI) [Ratio] 37.5 kg/m2 Dr. Carlitos Brewer DO Work Phone: [facility] 05-31-2024 13:10-0500 Body temperature 97.2 [degF] Dr. Carlitos Brewer DO Work Phone: [facility] 05-31-2024 13:10-0500 Body weight 118.[address] Carlitos Brewer DO Work Phone: [facility] 05-31-2024 13:10-0500 Diastolic blood pressure 75 mm[Hg] Dr. Carlitos Brewer DO Work Phone: [facility] 05-31-2024 13:10-0500 Heart rate 74 /min Dr. Carlitos Brewer DO Work Phone: [facility] 05-31-2024 13:10-0500 Respiratory rate 16 /min Dr. Carlitos Brewer DO Work Phone: [facility] 05-31-2024 13:10-0500 SaO2% (BldA) [Mass fraction] 95 % Dr. Carlitos Brewer DO Work Phone: [facility] 05-31-2024 13:10-0500 Systolic blood pressure 115 mm[Hg] Dr. Carlitos Brewer DO Work Phone: [facility] 05-31-2024 12:27-0500 Body mass index (BMI) [Ratio] 37.5 kg/m2 Dr. Carlitos Brewer DO Work Phone: [facility] 05-31-2024 12:27-0500 Body temperature 97.1 [degF] Dr. Carlitos Brewer DO Work Phone: [facility] 05-31-2024 12:27-0500 Body weight 118.[address] Carlitos Brewer DO Work Phone: [facility] 05-31-2024 12:27-0500 Diastolic blood pressure 75 mm[Hg] Dr. Carlitos Brewer DO Work Phone: [facility] 05-31-2024 12:27-0500 Heart rate 74 /min Dr. Carlitos Brewer DO Work Phone: [facility] 05-31-2024 12:27-0500 Respiratory rate 16 /min Dr. Carlitos Brewer DO Work Phone: [facility] 05-31-2024 12:27-0500 SaO2% (BldA) [Mass fraction] 95 % Dr. Carlitos Brewer DO Work Phone: [facility] 05-31-2024 12:27-0500 Systolic blood pressure 115 mm[Hg] Dr. Carlitos Brewer DO Work Phone: [facility] 05-24-2024 09:42-0500 Body mass index (BMI) [Ratio] 37.9 kg/m2 Dr. Carlitos Brewer DO Work Phone: [facility] 05-24-2024 09:42-0500 Body temperature 97.8 [degF] Dr. Carlitos Brewer DO Work Phone: [facility] 05-24-2024 09:42-0500 Body weight 119.[address] Carlitos Brewer DO Work Phone: [facility] 05-24-2024 09:42-0500 Diastolic blood pressure 79 mm[Hg] Dr. Carlitos Brewer DO Work Phone: [facility] 05-24-2024 09:42-0500 Heart rate 69 /min Dr. Carlitos Brewer DO Work Phone: [facility] 05-24-2024 09:42-0500 Respiratory rate 18 /min Dr. Carlitos Brewer DO Work Phone: [facility] 05-24-2024 09:42-0500 SaO2% (BldA) [Mass fraction] 94 % Dr. Carlitos Brewer DO Work Phone: [facility] 05-24-2024 09:42-0500 Systolic blood pressure 122 mm[Hg] Dr. Carlitos Brewer DO Work Phone: [facility] 2023 12:35-0400 Body mass index (BMI) [Ratio] 37.9 kg/m2 Dr. Carlitos Brewer DO Work Phone: [facility] 08-26-2023 09:20-0400 Body temperature 97 [degF] Dr. Carlitos Brewer Work Phone: [facility] 08-26-2023 09:20-0400 Diastolic blood pressure 85 mm[Hg] Dr. Carlitos Brewer Work Phone: [facility] 08-26-2023 09:20-0400 Heart rate 63 /min Dr. Carlitos Brewer Work Phone: [facility] 08-26-2023 09:20-0400 Respiratory rate 16 /min Dr. Carlitos Brewer Work Phone: [facility] 08-26-2023 09:20-0400 SaO2% (BldA) [Mass fraction] 96 % Dr. Carlitos Brewer Work Phone: [facility] 08-26-2023 09:20-0400 Systolic blood pressure 130 mm[Hg] Dr. Carlitos Brewer Work Phone: [facility] 08-26-2023 06:36-0400 Body height 177.[address] Carlitos Brewer Work Phone: [facility] 08-26-2023 06:36-0400 Body mass index (BMI) [Ratio] 36 kg/m2 Dr. Carlitos Brewer Work Phone: [facility] 08-26-2023 06:36-0400 Body weight 113.[address] Carlitos Brewer Work Phone: [facility] 08-13-2023 10:25-0400 Body mass index (BMI) [Ratio] 36.4 kg/m2 Dr. Carlitos Brewer Work Phone: [facility] 08-13-2023 10:25-0400 Body temperature 97.8 [degF] Dr. Carlitos Brewer Work Phone: [facility] 08-13-2023 10:25-0400 Body weight 115.[address] Carlitos Brewer Work Phone: [facility] 08-13-2023 10:25-0400 Diastolic blood pressure 72 mm[Hg] Dr. Carlitos Brewer Work Phone: [facility] 08-13-2023 10:25-0400 Heart rate 73 /min Dr. Carlitos Brewer Work Phone: [facility] 08-13-2023 10:25-0400 Respiratory rate 16 /min Dr. Carlitos Brewer Work Phone: [facility] 08-13-2023 10:25-0400 SaO2% (BldA) [Mass fraction] 96 % Dr. Carlitos Brewer Work Phone: [facility] 08-13-2023 10:25-0400 Systolic blood pressure 112 mm[Hg] Dr. Carlitos Brewer Work Phone: [facility] 08-11-2023 10:54-0400 Body mass index (BMI) [Ratio] 36.3 kg/m2 Dr. Carlitos Brewer Work Phone: [facility] 08-11-2023 10:54-0400 Body temperature 97.9 [degF] Dr. Carlitos Brewer Work Phone: [facility] 08-11-2023 10:54-0400 Body weight 114.[address] Carlitos Brewer Work Phone: [facility] 08-11-2023 10:54-0400 Diastolic blood pressure 90 mm[Hg] Dr. Carlitos Brewer Work Phone: [facility] 08-11-2023 10:54-0400 Heart rate 65 /min Dr. Carlitos Brewer Work Phone: [facility] 08-11-2023 10:54-0400 Respiratory rate 18 /min Dr. Carlitos Brewer Work Phone: [facility] 08-11-2023 10:54-0400 SaO2% (BldA) [Mass fraction] 96 % Dr. Carlitos Brewer Work Phone: [facility] 08-11-2023 10:54-0400 Systolic blood pressure 132 mm[Hg] Dr. Carlitos Brewer Work Phone: [facility] 08-11-2023 08:56-0400 Body mass index (BMI) [Ratio] 36.3 kg/m2 Dr. Carlitos Brewer Work Phone: [facility] 08-11-2023 08:56-0400 Body weight 114.[address] Carlitos Brewer Work Phone: [facility] 08-11-2023 08:56-0400 Diastolic blood pressure 79 mm[Hg] Dr. Carlitos Brewer Work Phone: [facility] 08-11-2023 08:56-0400 Heart rate 70 /min Dr. Carlitos Brewer Work Phone: [facility] 08-11-2023 08:56-0400 Respiratory rate 18 /min Dr. Carlitos Brewer Work Phone: [facility] 08-11-2023 08:56-0400 Systolic blood pressure 117 mm[Hg] Dr. Carlitos Brewer Work Phone: [facility] 07-21-2023 14:05-0400 Body height 177.[address] Carlitos Brewer Work Phone: [facility] 07-21-2023 14:05-0400 Body mass index (BMI) [Ratio] 36.9 kg/m2 Dr. Carlitos Brewer Work Phone: [facility] 07-21-2023 14:05-0400 Body temperature 97.3 [degF] Dr. Carlitos Brewer Work Phone: [facility] 07-21-2023 14:05-0400 Body weight 116.[address] Carlitos Brewer Work Phone: [facility] 07-21-2023 14:05-0400 Diastolic blood pressure 92 mm[Hg] Dr. Carlitos Brewer Work Phone: [facility] 07-21-2023 14:05-0400 Heart rate 73 /min Dr. Carlitos Brewer Work Phone: [facility] 07-21-2023 14:05-0400 Respiratory rate 16 /min Dr. Carlitos Brewer Work Phone: [facility] 07-21-2023 14:05-0400 SaO2% (BldA) [Mass fraction] 94 % Dr. Carlitos Brewer Work Phone: [facility] 07-21-2023 14:05-0400 Systolic blood pressure 141 mm[Hg] Dr. Carlitos Brewer Work Phone: [facility] 07-10-2023 13:30-0400 Body height 177.8 cm No Primary Care Physician [facility] 07-10-2023 13:30-0400 Body mass index (BMI) [Ratio] 36.7 kg/m2 No Primary Care Physician [facility] 07-10-2023 13:30-0400 Body temperature 97.2 [degF] No Primary Care Physician [facility] 07-10-2023 13:30-0400 Body weight 116.11 kg No Primary Care Physician [facility] 07-10-2023 13:30-0400 Diastolic blood pressure 87 mm[Hg] No Primary Care Physician [facility] 07-10-2023 13:30-0400 Heart rate 115 /min No Primary Care Physician [facility] 07-10-2023 13:30-0400 Respiratory rate 17 /min No Primary Care Physician [facility] 07-10-2023 13:30-0400 SaO2% (BldA) [Mass fraction] 95 % No Primary Care Physician [facility] 07-10-2023 13:30-0400 Systolic blood pressure 128 mm[Hg] No Primary Care Physician [facility] 07-07-2023 07:59-0400 Body mass index (BMI) [Ratio] 36.6 kg/m2 No Primary Care Physician [facility] 07-07-2023 07:59-0400 Body temperature 97 [degF] No Primary Care Physician [facility] 07-07-2023 07:59-0400 Body weight 115.8 kg No Primary Care Physician [facility] 07-07-2023 07:59-0400 Diastolic blood pressure 87 mm[Hg] No Primary Care Physician [facility] 07-07-2023 07:59-0400 Heart rate 70 /min No Primary Care Physician [facility] 07-07-2023 07:59-0400 Respiratory rate 18 /min No Primary Care Physician [facility] 07-07-2023 07:59-0400 SaO2% (BldA) [Mass fraction] 98 % No Primary Care Physician [facility] 07-07-2023 07:59-0400 Systolic blood pressure 147 mm[Hg] No Primary Care Physician [facility] 07-01-2023 11:17-0500 Body height 177.8 cm No Primary Care Physician [facility] 07-01-2023 11:17-0500 Body mass index (BMI) [Ratio] 36.2 kg/m2 No Primary Care Physician [facility] 07-01-2023 11:17-0500 Body temperature 97.8 [degF] No Primary Care Physician [facility] 07-01-2023 11:17-0500 Body weight 114.53 kg No Primary Care Physician [facility] 07-01-2023 11:17-0500 Diastolic blood pressure 79 mm[Hg] No Primary Care Physician [facility] 07-01-2023 11:17-0500 Heart rate 68 /min No Primary Care Physician [facility] 07-01-2023 11:17-0500 Respiratory rate 18 /min No Primary Care Physician [facility] 07-01-2023 11:17-0500 SaO2% (BldA) [Mass fraction] 97 % No Primary Care Physician [facility] 07-01-2023 11:17-0500 Systolic blood pressure 115 mm[Hg] No Primary Care Physician [facility] 06-16-2023 13:57-0500 Body height 177.8 cm No Primary Care Physician [facility] 06-16-2023 13:57-0500 Body mass index (BMI) [Ratio] 37.4 kg/m2 No Primary Care Physician [facility] 06-16-2023 13:57-0500 Body temperature 97.3 [degF] No Primary Care Physician [facility] 06-16-2023 13:57-0500 Body weight 118.38 kg No Primary Care Physician [facility] 06-16-2023 13:57-0500 Diastolic blood pressure 90 mm[Hg] No Primary Care Physician [facility] 06-16-2023 13:57-0500 Heart rate 61 /min No Primary Care Physician [facility] 06-16-2023 13:57-0500 Respiratory rate 18 /min No Primary Care Physician [facility] 06-16-2023 13:57-0500 SaO2% (BldA) [Mass fraction] 98 % No Primary Care Physician [facility] 06-16-2023 13:57-0500 Systolic blood pressure 139 mm[Hg] No Primary Care Physician [facility] 06-12-2023 08:32-0500 Body mass index (BMI) [Ratio] 37.3 kg/m2 No Primary Care Physician [facility] 06-12-2023 08:32-0500 Body weight 117.93 kg No Primary Care Physician [facility] 06-12-2023 08:32-0500 Diastolic blood pressure 82 mm[Hg] No Primary Care Physician [facility] 06-12-2023 08:32-0500 Heart rate 67 /min No Primary Care Physician [facility] 06-12-2023 08:32-0500 Respiratory rate 18 /min No Primary Care Physician [facility] 06-12-2023 08:32-0500 Systolic blood pressure 124 mm[Hg] No Primary Care Physician [facility] 04-30-2023 13:58-0500 Body mass index (BMI) [Ratio] 37.8 kg/m2 No Primary Care Physician [facility] 04-30-2023 13:58-0500 Body temperature 97.1 [degF] No Primary Care Physician [facility] 04-30-2023 13:58-0500 Body weight 119.52 kg No Primary Care Physician [facility] 04-30-2023 13:58-0500 Diastolic blood pressure 88 mm[Hg] No Primary Care Physician [facility] 04-30-2023 13:58-0500 Heart rate 57 /min No Primary Care Physician [facility] 04-30-2023 13:58-0500 Respiratory rate 18 /min No Primary Care Physician [facility] 04-30-2023 13:58-0500 SaO2% (BldA) [Mass fraction] 97 % No Primary Care Physician [facility] 04-30-2023 13:58-0500 Systolic blood pressure 139 mm[Hg] No Primary Care Physician [facility] 03-31-2023 15:24-0500 Body mass index (BMI) [Ratio] 36.5 kg/m2 No Primary Care Physician [facility] 03-31-2023 15:24-0500 Body temperature 96.7 [degF] No Primary Care Physician [facility] 03-31-2023 15:24-0500 Body weight 117.14 kg No Primary Care Physician [facility] 03-31-2023 15:24-0500 Diastolic blood pressure 93 mm[Hg] No Primary Care Physician [facility] 03-31-2023 15:24-0500 Heart rate 63 /min No Primary Care Physician [facility] 03-31-2023 15:24-0500 Respiratory rate 16 /min No Primary Care Physician [facility] 03-31-2023 15:24-0500 SaO2% (BldA) [Mass fraction] 98 % No Primary Care Physician [facility] 03-31-2023 15:24-0500 Systolic blood pressure 147 mm[Hg] No Primary Care Physician [facility] 03-17-2023 14:36-0500 Body mass index (BMI) [Ratio] 36.3 kg/m2 No Primary Care Physician [facility] 03-17-2023 14:36-0500 Body temperature 97.1 [degF] No Primary Care Physician [facility] 03-17-2023 14:36-0500 Body weight 116.57 kg No Primary Care Physician [facility] 03-17-2023 14:36-0500 Diastolic blood pressure 89 mm[Hg] No Primary Care Physician [facility] 03-17-2023 14:36-0500 Heart rate 63 /min No Primary Care Physician [facility] 03-17-2023 14:36-0500 Respiratory rate 18 /min No Primary Care Physician [facility] 03-17-2023 14:36-0500 SaO2% (BldA) [Mass fraction] 98 % No Primary Care Physician [facility] 03-17-2023 14:36-0500 Systolic blood pressure 143 mm[Hg] No Primary Care Physician [facility] 06-07-2022 09:23-0500 Body height 179.07 cm No Primary Care Physician [facility] 06-07-2022 09:23-0500 Body mass index (BMI) [Ratio] 34.7 kg/m2 No Primary Care Physician [facility] 06-07-2022 09:23-0500 Body weight 111.58 kg No Primary Care Physician [facility] 06-07-2022 09:23-0500 Diastolic blood pressure 64 mm[Hg] No Primary Care Physician [facility] 06-07-2022 09:23-0500 Heart rate 63 /min No Primary Care Physician [facility] 06-07-2022 09:23-0500 Respiratory rate 16 /min No Primary Care Physician [facility] 06-07-2022 09:23-0500 Systolic blood pressure 104 mm[Hg] No Primary Care Physician [facility] 06-03-2022 08:38-0500 Body height 179.07 cm No Primary Care Physician [facility] 06-03-2022 08:36-0500 Body mass index (BMI) [Ratio] 34.9 kg/m2 No Primary Care Physician [facility] 06-03-2022 08:36-0500 Body temperature 96.2 [degF] No Primary Care Physician [facility] 06-03-2022 08:36-0500 Body weight 112.09 kg No Primary Care Physician [facility] 06-03-2022 08:36-0500 Diastolic blood pressure 81 mm[Hg] No Primary Care Physician [facility] 06-03-2022 08:36-0500 Heart rate 64 /min No Primary Care Physician [facility] 06-03-2022 08:36-0500 Respiratory rate 16 /min No Primary Care Physician [facility] 06-03-2022 08:36-0500 SaO2% (BldA) [Mass fraction] 94 % No Primary Care Physician [facility] 06-03-2022 08:36-0500 Systolic blood pressure 128 mm[Hg] No Primary Care Physician [facility] 02-25-2022 08:34-0400 Body mass index (BMI) [Ratio] 35.4 kg/m2 No Primary Care Physician [facility] 02-25-2022 08:34-0400 Body temperature 97.4 [degF] No Primary Care Physician [facility] 02-25-2022 08:34-0400 Body weight 113.51 kg No Primary Care Physician [facility] 02-25-2022 08:34-0400 Diastolic blood pressure 95 mm[Hg] No Primary Care Physician [facility] 02-25-2022 08:34-0400 Heart rate 62 /min No Primary Care Physician [facility] 02-25-2022 08:34-0400 Respiratory rate 18 /min No Primary Care Physician [facility] 02-25-2022 08:34-0400 SaO2% (BldA) [Mass fraction] 96 % No Primary Care Physician [facility] 02-25-2022 08:34-0400 Systolic blood pressure 153 mm[Hg] No Primary Care Physician [facility] 11-19-2021 08:38-0400 Body height 179.[address] Mango [place] Work Phone: [facility] Work Phone: 11-19-2021 08:35-0400 Body mass index (BMI) [Ratio] 34.4 kg/m2 Dr. Mango [place] Work Phone: [facility] Work Phone: 11-19-2021 08:35-0400 Body temperature 97.8 [degF] Dr. Mango [place] Work Phone: [facility] Work Phone: 11-19-2021 08:35-0400 Body weight 110.[address] Mango [place] Work Phone: [facility] Work Phone: 11-19-2021 08:35-0400 Diastolic blood pressure 88 mm[Hg] Dr. Mango [place] Work Phone: [facility] Work Phone: 11-19-2021 08:35-0400 Heart rate 78 /min Dr. Mango [place] Work Phone: [facility] Work Phone: 11-19-2021 08:35-0400 Respiratory rate 16 /min Dr. Mango [place] Work Phone: [facility] Work Phone: 11-19-2021 08:35-0400 SaO2% (BldA) [Mass fraction] 95 % Dr. Mango [place] Work Phone: [facility] Work Phone: 11-19-2021 08:35-0400 Systolic blood pressure 139 mm[Hg] Dr. Mango [place] Work Phone: [facility] Work Phone: 10-22-2021 13:54-0400 Body height 179.[address] Mango [place] Work Phone: [facility] Work Phone: 10-22-2021 13:52-0400 Body mass index (BMI) [Ratio] 34.4 kg/m2 Dr. Mango [place] Work Phone: [facility] Work Phone: 10-22-2021 13:52-0400 Body temperature 97.5 [degF] Dr. Mango [place] Work Phone: [facility] Work Phone: 10-22-2021 13:52-0400 Body weight 110.[address] Mango [place] Work Phone: [facility] Work Phone: 10-22-2021 13:52-0400 Diastolic blood pressure 89 mm[Hg] Dr. Mango [place] Work Phone: [facility] Work Phone: 10-22-2021 13:52-0400 Heart rate 60 /min Dr. Mango [place] Work Phone: [facility] Work Phone: 10-22-2021 13:52-0400 Respiratory rate 16 /min Dr. Mango [place] Work Phone: [facility] Work Phone: 10-22-2021 13:52-0400 SaO2% (BldA) [Mass fraction] 97 % Dr. Mango [place] Work Phone: [facility] Work Phone: 10-22-2021 13:52-0400 Systolic blood pressure 148 mm[Hg] Dr. Mango [place] Work Phone: [facility] Work Phone: 10-17-2021 13:45-0400 Body mass index (BMI) [Ratio] 34.7 kg/m2 Dr. Mango [place] Work Phone: [facility] Work Phone: 10-17-2021 13:45-0400 Body temperature 97.5 [degF] Dr. Mango [place] Work Phone: [facility] Work Phone: 10-17-2021 13:45-0400 Body weight 111.[address] Mango [place] Work Phone: [facility] Work Phone: 10-17-2021 13:45-0400 Diastolic blood pressure 71 mm[Hg] Dr. Mango [place] Work Phone: [facility] Work Phone: 10-17-2021 13:45-0400 Heart rate 75 /min Dr. Mango [place] Work Phone: [facility] Work Phone: 10-17-2021 13:45-0400 Respiratory rate 16 /min Dr. Mango [place] Work Phone: [facility] Work Phone: 10-17-2021 13:45-0400 SaO2% (BldA) [Mass fraction] 96 % Dr. Mango [place] Work Phone: [facility] Work Phone: 10-17-2021 13:45-0400 Systolic blood pressure 120 mm[Hg] Dr. Mango [place] Work Phone: [facility] Work Phone: 10-10-2021 13:39-0400 Body mass index (BMI) [Ratio] 34.3 kg/m2 Dr. Mango [place] Work Phone: [facility] Work Phone: 10-10-2021 13:39-0400 Body temperature 97.4 [degF] Dr. Mango [place] Work Phone: [facility] Work Phone: 10-10-2021 13:39-0400 Body weight 110.[address] Mango [place] Work Phone: [facility] Work Phone: 10-10-2021 13:39-0400 Diastolic blood pressure 86 mm[Hg] Dr. Mango [place] Work Phone: [facility] Work Phone: 10-10-2021 13:39-0400 Heart rate 63 /min Dr. Mango [place] Work Phone: [facility] Work Phone: 10-10-2021 13:39-0400 Respiratory rate 16 /min Dr. Mango uCba Work Phone: [facility] Work Phone: 10-10-2021 13:39-0400 SaO2% (BldA) [Mass fraction] 97 % Dr. Mango [place] Work Phone: [facility] Work Phone: 10-10-2021 13:39-0400 Systolic blood pressure 120 mm[Hg] Dr. Mango [place] Work Phone: [facility] Work Phone: 10-02-2021 13:32-0400 Body mass index (BMI) [Ratio] 34.8 kg/m2 Dr. Mango [place] Work Phone: [facility] Work Phone: 10-02-2021 13:32-0400 Body temperature 97.7 [degF] Dr. Mango [place] Work Phone: [facility] Work Phone: 10-02-2021 13:32-0400 Body weight 111.[address] Mango [place] Work Phone: [facility] Work Phone: 10-02-2021 13:32-0400 Diastolic blood pressure 78 mm[Hg] Dr. Mango [place] Work Phone: [facility] Work Phone: 10-02-2021 13:32-0400 Heart rate 65 /min Dr. Mango [place] Work Phone: [facility] Work Phone: 10-02-2021 13:32-0400 Respiratory rate 16 /min Dr. Mango [place] Work Phone: [facility] Work Phone: 10-02-2021 13:32-0400 SaO2% (BldA) [Mass fraction] 95 % Dr. Mango [place] Work Phone: [facility] Work Phone: 10-02-2021 13:32-0400 Systolic blood pressure 118 mm[Hg] Dr. Mango [place] Work Phone: [facility] Work Phone: 09-26-2021 13:57-0400 Body mass index (BMI) [Ratio] 34.5 kg/m2 Dr. Mango [place] Work Phone: [facility] Work Phone: 09-26-2021 13:57-0400 Body temperature 97.6 [degF] Dr. Mango [place] Work Phone: [facility] Work Phone: 09-26-2021 13:57-0400 Body weight 110.[address] Mango [place] Work Phone: [facility] Work Phone: 09-26-2021 13:57-0400 Diastolic blood pressure 81 mm[Hg] Dr. Mango [place] Work Phone: [facility] Work Phone: 09-26-2021 13:57-0400 Heart rate 65 /min Dr. Mango [place] Work Phone: [facility] Work Phone: 09-26-2021 13:57-0400 Respiratory rate 16 /min Dr. Mango [place] Work Phone: [facility] Work Phone: 09-26-2021 13:57-0400 SaO2% (BldA) [Mass fraction] 97 % Dr. Mango [place] Work Phone: [facility] Work Phone: 09-26-2021 13:57-0400 Systolic blood pressure 125 mm[Hg] Dr. Mango [place] Work Phone: [facility] Work Phone: 09-19-2021 13:17-0400 Body temperature 98.4 [degF] Sukumar Whitfield MD, PhD Work Phone: [facility] 09-19-2021 13:17-0400 Body weight 111.72 kg Sukumar Whitfield MD, PhD Work Phone: [facility] 09-19-2021 13:17-0400 Diastolic blood pressure 71 mm[Hg] Skuumar Whitfield MD, PhD Work Phone: [facility] 09-19-2021 13:17-0400 Heart rate 63 /min Sukumar Whitfield MD, PhD Work Phone: [facility] 09-19-2021 13:17-0400 Respiratory rate 18 /min Sukumar Whitfield MD, PhD Work Phone: [facility] 09-19-2021 13:17-0400 SaO2% (BldA) [Mass fraction] 96 % Sukumar Whitfield MD, PhD Work Phone: [facility] 09-19-2021 13:17-0400 Systolic blood pressure 128 mm[Hg] Sukumar Whitfield MD, PhD Work Phone: [facility] 09-07-2021 09:06-0400 Body mass index (BMI) [Ratio] 34.8 kg/m2 Dr. Mango [place] Work Phone: [facility] Work Phone: 09-07-2021 09:06-0400 Body temperature 97.9 [degF] Dr. Mango [place] Work Phone: [facility] Work Phone: 09-07-2021 09:06-0400 Body weight 111.[address] Mango [place] Work Phone: [facility] Work Phone: 09-07-2021 09:06-0400 Diastolic blood pressure 88 mm[Hg] Dr. Mango [place] Work Phone: [facility] Work Phone: 09-07-2021 09:06-0400 Heart rate 59 /min Dr. Mango [place] Work Phone: [facility] Work Phone: 09-07-2021 09:06-0400 Respiratory rate 16 /min Dr. Mango [place] Work Phone: [facility] Work Phone: 09-07-2021 09:06-0400 SaO2% (BldA) [Mass fraction] 95 % Dr. Mango [place] Work Phone: [facility] Work Phone: 09-07-2021 09:06-0400 Systolic blood pressure 144 mm[Hg] Dr. Mango [place] Work Phone: [facility] Work Phone: 05-25-2021 07:37-0500 Body height 179.[address] Mango [place] Work Phone: [facility] Work Phone: 05-25-2021 07:37-0500 Body weight 102.[address] Mango [place] Work Phone: [facility] Work Phone: 05-25-2021 07:37-0500 Diastolic blood pressure 82 mm[Hg] Dr. Mango [place] Work Phone: [facility] Work Phone: 05-25-2021 07:37-0500 Heart rate 56 /min Dr. Mango [place] Work Phone: [facility] Work Phone: 05-25-2021 07:37-0500 Respiratory rate 16 /min Dr. Mango [place] Work Phone: [facility] Work Phone: 05-25-2021 07:37-0500 Systolic blood pressure 127 mm[Hg] Dr. Mango [place] Work Phone: [facility] Work Phone: 07-25-2020 14:14-0400 Body mass index (BMI) [Ratio] 33.4 kg/m2 Dr. Mango [place] Work Phone: [facility] Work Phone: Encounters Encounter Date Encounter Type Care Provider Facility Start: 02-03-2025 End: 02-03-2025 Patient encounter procedure Catalino Jeffery Teri AMADO -[facility] Work Phone: Start: 02-03-2025 End: 02-03-2025 ambulatory Carlitos Brewer Facility:[facility] Start: 2024 End: [address] Jignesh Purcell MD -[facility] Work Phone: Start: 2024 End: [address] Carlitos Brewer DO Work Phone: [facility] Start: 11-16-2024 ambulatory MANGO CUBA Facility :[facility] Start: 11-10-2024 End: 11-10-2024 Patient encounter procedure Alejandra Yao PA-C -[facility] Work Phone: Start: 11-10-2024 End: 11-10-[address] Carlitos Brewer DO Work Phone: -[facility] Start: 11-04-[address] Tristan Rosen on [facility] Start: 11-04-2024 End: 11-04-[address] Jignesh Purcell MD -[facility] Work Phone: Start: 11-04-2024 End: 11-04-[address] Carlitos Brewer DO Work Phone: [facility] Start: 11-01-2024 End: 11-01-2024 Office outpatient new 60 minutes Yan Scherer MD, PhD Work Phone: [facility] On[facility] Comment on above: Prostate cancer (Nury stephanie Dx); Rising PSA following treatment for malignant neoplasm of prostate; Metastasis to bone Start: 11-01-2024 ambulatory JIGNESH Sinclair lity:[facility] Start: 10-26-2024 ambulatory Carlitos Brewer [facility] [facility] Start: 10-26-2024 End: 10-26-2024 Non-patient / Non-visit Dr. Ktity Pruett MD -[facility] Start: 10-26-2024 End: 10-26-2024 Admission to same day surgery center Dr. Kitty Pruett MD [facility] Start: 10-26-2024 End: 10-26-[address] Carlitos Brewer DO Work Phone: [facility] Start: 10-20-2024 End: 10-20-[address] Kitty Pruett MD -[facility] Work Phone: Start: 10-20-2024 End: 10-20-[address] Carlitos rBewer DO Work Phone: [facility] Work Phone: Start: 10-19-[address] Tristan Rosen on [facility] Start: 10-19-2024 End: 10-19-[address] Jignesh Purcell MD -[facility] Work Phone: Start: 10-19-2024 End: 10-19-[address] Carlitos Brewer DO Work Phone: [facility] Work Phone: Start: 10-18-2024 End: 10-18-2024 Emergency department patient visit ANGIE LECHUGA MD [facility] Start: 10-18-2024 End: 10-18-2024 ambulatory CARLITOS BREWER DO Facility:[facility] Start: 10-18-2024 End: 10-18-2024 Patient encounter procedure CARLITOS BREWER DO [facility] Start: 10-13-2024 Non-patient / Non-visit Dr. Eugenia Watkins MD -[facility] Work Phone: Start: 10-13-2024 Non-patient / Non-visit Dr. Kitty pérez MD -[facility] Start: 10-12-2024 Non-patient / Non-visit Dr. Eugenia Watkins MD -[facility] Work Phone: Start: 10-12-2024 Non-patient / Non-visit Dr. Kitty pérez MD -[facility] Start: 10-11-2024 Non-patient / Non-visit Dr. Eugenia Watkins MD -[facility] Work Phone: Start: 10-11-2024 ambulatory Andrews Watkins Fac ility:[facility] Start: 10-11-2024 End: 10-13-2024 Evaluation and management of inpatient Dr. Andrews Watkins MD -[facility] Work Phone: Start: 09-08-[address] Tristan Rosen on [facility] Start: 09-08-2024 End: 09-08-[address] Jignesh Purcell MD -[facility] Work Phone: Start: 09-08-2024 End: 09-08-[address] Carlitos Brewer DO Work Phone: [facility] Work Phone: Start: 09-01-2024 End: 09-01-[address] Tristan Borrero DO [facility] Work Phone: Start: 09-01-2024 End: 09-01-2024 ambulatory [facility] Facility:[facility] Start: 09-01-2024 Non-patient / Non-visit Dr. Tristan acosta [facility] Work Phone: Start: 09-01-2024 ambulatory [facility] Facility: [facility] Start: 08-25-2024 End: 08-25-[address] Jignesh Purcell MD -Nuclear Medicine [facility] Work Phone: Start: 08-25-2024 ambulatory [facility] Facility: [facility] Start: 08-25-2024 Non-patient / Non-visit Dr. Tristan acosta DO [facility] Start: 08-25-2024 End: 08-25-2024 ambulatory [facility] Facility:[facility] Start: 08-20-2024 ambulatory [facility] Facility: [facility] Start: 08-20-2024 Non-patient / Non-visit Dr. Tristan acosta DO [facility] Start: 08-19-2024 End: 08-19-2024 Patient encounter procedure Florencia AMADO -[facility] Work Phone: Start: 08-19-2024 End: 08-19-2024 ambulatory [facility] Facility:[facility] Start: 08-17-2024 ambulatory [facility] Facility: [facility] Start: 08-17-2024 Non-patient / Non-visit Dr. Tristan acosta DO [facility] Start: 08-12-2024 End: 08-12-[address] Tristan Borrero DO -[facility] Work Phone: Start: 08-12-2024 End: 08-12-20[facility] Start: 08-03-2024 End: 08-03-[address] Juan M Diaz MD -[facility] Work Phone: Start: 08-03-2024 End: 08-03-2024 ambulatory Juan M Diaz Facility:[facility] Start: 07-13-2024 End: 07-17-2024 ambulatory CARLITOS RUIZINS Facility[facility] Start: 07-13-2024 End: 07-17-2024 Encounter for general adult medical examination without abnormal findings CARLITOS E BREWER Facility:[facility] Start: 07-01-2024 End: 07-01-[address] Jignesh Purcell MD -[facility] Work Phone: Start: 07-01-2024 End: 07-01-2024 ambulatory Jignesh Purcell Facility:[facility] Start: 05-31-2024 End: 05-31-[address] Jignesh Purcell MD -[facility] Work Phone: Start: 05-31-2024 End: 05-31-2024 ambulatory Jignesh Purcell Facility:[facility] Start: 05-28-2024 End: 05-28-2024 Patient encounter procedure Florencia Sampson [employer]PER[employer]OR-C -Nuclear Medicine [facility] Work Phone: Start: 05-27-2024 Non-patient / Non-visit Irma Lim er -[facility] Work Phone: Start: 05-27-2024 End: 05-28-2024 ambulatory Carlitos Brewer Facility:[facility] Start: 05-25-2024 End: 05-25-2024 Patient encounter procedure Florenciapham Sampson [employer]ATING [employer]ING SUPERVISOR-C -MRI - [facility] Work Phone: Start: 05-24-2024 End: 05-24-2024 Patient encounter procedure Florenciapham Sampson [employer]ATING [employer] SUPERVISOR-C -Radiology [facility] Work Phone: Start: 05-24-2024 End: 05-24-2024 Patient encounter procedure Florenciapham Sampson HEATING AND BLENDING SUPERVISOR-C -[facility] Work Phone: Start: 05-24-2024 End: 05-25-2024 ambulatory Carlitos Brewer Facility:[facility] Start: 05-24-2024 End: 05-24-2024 ambulatory Carlitos Brewer Facility:[facility] Start: 04-16-2024 End: 04-16-2024 ambulatory Carlitos Brewer Facility:[facility] Start: 04-15-2024 End: 04-16-2024 ambulatory Carlitos Brewer Facility:[facility] Start: 03-31-2024 End: 03-31-2024 ambulatory Carlitos Brewer Facility:[facility] Start: 03-11-2024 End: 03-11-2024 ambulatory Carlitos Brewer Facility:[facility] Start: 02-23-2024 End: 02-27-2024 ambulatory CARLITOS BREWER DO Facility:[facility] Start: 02-23-2024 End: 02-27-2024 Outreach Lab CONNIE SALVADOR [employer]IE[employer] PRINTER [facility] Start: 01-21-2024 End: 01-21-2024 ambulatory CARLITOS BREWER DO Facility:[facility] Start: 01-21-2024 End: 01-21-2024 Patient encounter procedure CARLITOS BREWER DO [facility] Start: 12-03-2023 End: 12-03-2023 ambulatory CARLITOS BREWER DO Facility:B Start: 08-26-2023 Non-patient / Non-visit Dr. Ruben Brewer Work Phone: [facility] Start: 08-26-2023 End: 08-26-2023 Admission to same day surgery center Dr. Carlitos Brewer Work Phone: [facility] Start: 08-26-2023 End: 08-26-[address] Carlitos Brewer Work Phone: [facility] Work Phone: Start: 08-20-2023 End: 08-20-2023 ambulatory AZAM SAMANTHAI PA-C Facility:[facility] Start: 08-20-2023 End: 08-20-2023 Patient encounter procedure AZAM CHOEOMARI PA-C [facility] Start: 08-14-2023 Non-patient / Non-visit Dr. Ruben Brewer Work Phone: [facility] Work Phone: Start: 08-14-[address] Carlitos Brewer Work Phone: [facility]Radiation Oncology Start: 08-13-2023 End: 08-13-[address] Carlitos Brewer Work Phone: [facility] Work Phone: Start: 08-11-2023 End: 08-11-[address] Carlitos Brewer Work Phone: [facility] Work Phone: Start: 08-11-2023 End: 08-11-[address] Carlitos Brewer Work Phone: [facility] Work Phone: Start: 08-07-2023 Non-patient / Non-visit Dr. Ruben Brewer Work Phone: [facility] Start: 08-01-2023 Non-patient / Non-visit Dr. Ruben Brewer Work Phone: [facility] Start: 07-30-2023 Non-patient / Non-visit Dr. Ruben Brewer Work Phone: [facility] Start: 07-23-2023 Non-patient / Non-visit Dr. Ruben Brewer Work Phone: [facility] Start: 07-23-2023 End: 07-23-[address] Carlitos Brewer Work Phone: [facility] Work Phone: Start: 07-23-2023 End: 07-23-[address] Carlitos Brewer Work Phone: [facility]Cardiovascul[facility] Work Phone: Start: 07-22-2023 Non-patient / Non-visit Dr. Ruben Brewer Work Phone: [facility] Start: 07-22-[address] Carlitos Brewer Work Phone: [facility] Start: 07-21-2023 End: 07-21-[address] Carlitos Brewer Work Phone: [facility] Work Phone: Start: 07-10-2023 End: 07-10-[address] Carlitos Brewer Work Phone: [facility] Work Phone: Start: 07-10-2023 End: 07-10-2023 Patient encounter procedure No Primary Care Physician [facility]Laboratory, Specimen Work Phone: Start: 07-10-2023 End: 07-10-2023 Patient encounter procedure No Primary Care Physician [facility] Work Phone: Start: 07-07-2023 End: 07-07-2023 Patient encounter procedure No Primary Care Physician [facility] Work Phone: Start: 07-04-2023 End: 07-04-2023 ambulatory No Primary Care Physician [facility] Work Phone: Start: 07-04-2023 End: 07-04-2023 Patient encounter procedure No Primary Care Physician [facility]MRI - [facility] Work Phone: Start: 07-01-2023 End: 07-01-2023 Patient encounter procedure No Primary Care Physician [facility] Work Phone: Start: 07-01-2023 Registered Recurring No Primar y Care Physician [facility] Start: 06-27-2023 End: 06-27-2023 ambulatory No Primary Care Physician [facility] Work Phone: Start: 06-27-2023 End: 06-27-2023 Patient encounter procedure No Primary Care Physician [facility] Work Phone: Start: 06-24-2023 End: 06-24-2023 ambulatory No Primary Care Physician [facility] Work Phone: Start: 06-24-2023 End: 06-24-2023 Patient encounter procedure No Primary Care Physician [facility]Nuclear Medicine, [facility] Work Phone: Start: 06-16-2023 Registered Recurring No Primar y Care Physician [facility] Start: 06-16-2023 End: 06-16-2023 Patient encounter procedure No Primary Care Physician [facility] Work Phone: Start: 06-12-2023 End: 06-12-2023 ambulatory No Primary Care Physician [facility] Work Phone: Start: 06-12-2023 End: 06-12-2023 Patient encounter procedure No Primary Care Physician [facility] Work Phone: Start: 06-12-2023 End: 06-12-2023 Patient encounter procedure No Primary Care Physician [facility] Work Phone: Start: 04-30-2023 End: 04-30-2023 Patient encounter procedure No Primary Care Physician [facility] Work Phone: Start: 03-31-2023 Registered Recurring No Primar y Care Physician [facility] Start: 03-31-2023 End: 03-31-2023 Patient encounter procedure No Primary Care Physician [facility] Work Phone: Start: 03-28-2023 End: 03-28-2023 ambulatory No Primary Care Physician [facility] Work Phone: Start: 03-28-2023 End: 03-28-2023 Patient encounter procedure No Primary Care Physician [facility]-Cat Scan, [facility] Work Phone: Start: 03-27-2023 End: 03-27-2023 ambulatory No Primary Care Physician [facility] Work Phone: Start: 03-27-2023 End: 03-27-2023 Patient encounter procedure No Primary Care Physician [facility]Nuclear [facility], [facility] Work Phone: Start: 03-17-2023 End: 03-17-2023 Patient encounter procedure No Primary Care Physician [facility] Work Phone: Start: 03-14-2023 Non-patient / Non-visit No [facility] Care Physician [facility] Work Phone: Start: 03-06-2023 End: 03-06-2023 ambulatory [facility] Work Phone: Start: 03-06-2023 End: 03-06-2023 Patient encounter procedure [facility] Work Phone: Start: 01-21-2023 End: 01-25-2023 ambulatory CARLITOS BREWER DO Facility:[facility] Start: 01-21-2023 End: 01-25-2023 Encounter for general adult medical examination without abnormal findings CARLIOTS BREWER DO Facility:[facility] Start: 01-21-2023 End: 01-25-2023 Outreach Lab CARLITOS Navarro BREWER DO [facility] Start: 12-05-2022 End: 12-05-2022 ambulatory [facility] Work Phone: Start: 12-05-2022 End: 12-05-2022 Patient encounter procedure [facility] Work Phone: Start: 08-28-2022 End: 08-28-2022 ambulatory No Primary Care Physician [facility] Work Phone: Start: 08-28-2022 End: 08-28-2022 Patient encounter procedure No Primary Care Physician [facility] Start: 06-19-2022 Non-patient / Non-visit No [place] ste[facility]ie Care Physician [facility] Start: 06-18-2022 Non-patient / Non-visit No [place] brown Care Physician [facility] Start: 06-18-2022 End: 06-18-2022 ambulatory No Primary Care Physician [facility] Work Phone: Start: 06-18-2022 End: 06-18-2022 Patient encounter procedure No Primary Care Physician [facility]Cardiovascul[facility] Services Start: 06-18-2022 Registered Recurring No Primar y Care Physician [facility] Oncology Start: 06-07-2022 End: 06-07-2022 Patient encounter procedure No Primary Care Physician [facility] Start: 06-03-2022 End: 06-03-2022 Patient encounter procedure No Primary Care Physician [facility] Start: 05-24-2022 End: 05-24-2022 ambulatory No Primary Care Physician [facility] Work Phone: Start: 05-24-2022 End: 05-24-2022 Patient encounter procedure No Primary Care Physician [facility]Labor[facility] Start: 03-08-2022 End: 03-08-2022 Patient encounter procedure KRUNAL [place] [employer]IEF[employer]INTER [facility] Start: 02-25-2022 End: 02-25-2022 Patient encounter procedure No Primary Care Physician [facility] Care Start: 02-12-2022 End: 02-12-[address] Mango Cuba Work Phone: [facility] Work Phone: Start: 02-12-2022 End: 02-12-[address] Mango [place] [facility] Start: 11-19-2021 End: 11-19-[address] Mango Cuba Work Phone: [facility] Start: 11-09-2021 End: 11-09-[address] Mango Cuba [facility] Start: 10-22-[address] Allen Cuba Work Phone: [facility]Rad[facility] Start: 10-22-2021 End: 10-22-[address] Mango Cuba Work Phone: [facility] Start: 10-17-2021 End: 10-17-[address] Mango Cuba Work Phone: [facility] Start: 10-12-2021 End: 10-12-2021 Subsequent hospital visit by physician Sukumar Whitfield MD, PhD Work Phone: Department of Radiation Oncology Start: 10-10-2021 End: 10-10-[address] Mango Cbua Work Phone: [facility] Start: 10-02-2021 End: 10-02-[address] Mango Cuba Work Phone: [facility] Start: 09-26-2021 End: 09-26-[address] Mango Cuba Work Phone: [facility] Start: 09-21-2021 Non-patient / Non-visit Dr. Romi Cuba Work Phone: [facility] Start: 09-20-2021 End: 09-20-2021 Clinical Support Encounter Sukumar Whitfield MD, PhD Work Phone: Department of Radiation Oncology Comment on above: Prostate cancer ([place] stephanie Dx) Start: 09-20-2021 End: 09-20-2021 Subsequent hospital visit by physician Sukumar Whitfield MD, PhD Work Phone: Department of Radiology Comment on above: Arrived Start: 09-20-2021 Non-patient / Non-visit Dr. Romi Cuba Work Phone: [facility] Start: 09-19-2021 End: 09-19-2021 Office outpatient new 60 minutes Sukumar Whitfield MD, PhD Work Phone: Department of Radiation Oncology Comment on above: Prostate cancer ([place] stephanie Dx) Start: 09-11-2021 Non-patient / Non-visit Dr. Romi Cuba Work Phone: [facility] Start: 09-07-2021 End: 09-07-[address] Mango Cuba Work Phone: [facility] Start: 08-22-2021 End: 08-22-[address] Mango Cuba Work Phone: [facility] Oncology Start: 08-08-2021 End: 08-08-[address] Mango Cuba Work Phone: [facility] Start: 05-25-2021 End: 05-25-[address] Mango Cuba Work Phone: [facility] Start: 04-24-[address] Mango Cuba Work Phone: [facility] Start: 03-02-2021 End: 03-02-2021 Patient encounter procedure MANGO CUBA MD [facility] Procedures Date Procedure Procedure Detail Performing Clinician Start: 11-04-2024 Assay of prostate specific antigen total Dr. Carlitos Brewer DO Work Phone: Comment on above: This test was perfor med using the [employer] tPSA method. Measured values of a patient sample can vary depending on the testing procedure used. PSA values determined on patient samples by different testing procedures cannot be used interchangeably. If there is a change in PSA assays while monitoring therapy, sequential testing should be performed to confirm baseline values. Start: 11-04-[address] Carlitos Brewer DO Work Phone: Start: 11-04-2024 Prostate specific an tigen measurement Dr. Carlitos Brewer DO Work Phone: Comment on above: This test was perfor med using the [employer] tPSA method. Measured values of a patient sample can vary depending on the testing procedure used. PSA values determined on patient samples by different testing procedures cannot be used interchangeably. If there is a change in PSA assays while monitoring therapy, sequential testing should be performed to confirm baseline values. Start: 11-01-2024 PSA screening YAN Wynn Comment on above: Result Comment: Test results cannot be interpreted as absolute evidence for the presence or absence of malignant disease. This test was performed on the [employer] Immunoassay platform which is a 2-step sandwich chemiluminescent immunoassay. It is important to note that assays using different manufacturers and/or methods may not be comparable. Performed By: #### [facility] #### [facility] ([facility]) [address] [place] [address] Start: 10-26-[address] Carlitos Brewer DO Work Phone: Start: 10-19-2024 Assay of prostate specific antigen total Dr. Carlitos Brewer DO Work Phone: Comment on above: This test was perfor med using the [employer] tPSA method. Measured values of a patient sample can vary depending on the testing procedure used. PSA values determined on patient samples by different testing procedures cannot be used interchangeably. If there is a change in PSA assays while monitoring therapy, sequential testing should be performed to confirm baseline values. Start: 10-19-[address] Carlitos Brewer DO Work Phone: Start: 10-13-[address] Carlitos Brewer DO Work Phone: Start: 10-12-[address] Carlitos Brewer DO Work Phone: Start: 10-12-2024 Gram stain microscopy Nikki Brewer DO Work Phone: Start: 10-12-2024 End: 10-12-2024 Microbial culture, routine Dr. Carlitos Brewer DO Work Phone: Start: 10-12-2024 Biopsy/Inj or Needle Placement Dr. Carlitos Brewer DO Work Phone: Start: 10-11-[address] Carlitos Brewer DO Work Phone: Start: 10-11-2024 Legionella pneumophi la antigen assay Dr. Carlitos Brewer DO Work Phone: Start: 10-11-2024 End: 10-11-2024 Streptococcus pneumoniae antigen assay Dr. Carlitos Brewer DO Work Phone: Start: 10-11-2024 Computed tomography of abdomen and pelvis with intravenous contrast Dr. Carlitos Brewer DO Work Phone: Start: 10-11-2024 CT angiography of ch est with contrast Dr. Carlitos Brewer DO Work Phone: Start: 10-11-[address] Carlitos Brewer DO Work Phone: Start: 09-08-2024 Assay of prostate specific antigen total Dr. Carlitos Brewer DO Work Phone: Comment on above: This test was perfor med using the [employer] tPSA method. Measured values of a patient sample can vary depending on the testing procedure used. PSA values determined on patient samples by different testing procedures cannot be used interchangeably. If there is a change in PSA assays while monitoring therapy, sequential testing should be performed to confirm baseline values. Start: 09-08-[address] Carlitos Brewer DO Work Phone: Start: 08-25-2024 Radionuclide whole b louis bone study Dr. Carlitos Brewer DO Work Phone: Start: 05-28-2024 Radionuclide whole b louis bone study Dr. Carlitos Brewer DO Work Phone: Start: 05-25-2024 MRI of lumbar spine with contrast Dr. Carlitos Brewer DO Work Phone: Start: 05-25-2024 MRI of pelvis with contrast Dr. Carlitos Brewer DO Work Phone: Start: 05-24-[address] Carlitos Brewer DO Work Phone: Start: 05-24-2024 X-ray of lumbar spin e, two or three views Dr. Carlitos Brewer DO Work Phone: Start: 05-24-2024 Urnls dip stick/tabl et reagent auto microscopy Dr. Carlitos Brewer DO Work Phone: Start: 05-24-2024 Measurement of renal function Dr. Carlitos Brewer DO Work Phone: Comment on above: GFR Calc Start: 08-26-2023 Radiographic procedu re of chest Dr. Carlitos Brewer Work Phone: Start: 08-26-2023 Implantation to cardiovascular system Dr. Carlitos Brewer Work Phone: Start: 08-26-2023 Fluoroscopic guidance Nikki Brewer Work Phone: Start: 07-23-2023 Radionuclide imaging of perfusion of myocardium under exercise stress Dr. Carlitos Brewer Work Phone: Start: 07-10-2023 Nasal Screen MRSA/MSSA Dr. Carlitos Brewer Work Phone: Start: 07-04-2023 MRI of pelvis with contrast No Primary Care Physician Start: 07-04-2023 MRI of lumbar spine with contrast No Primary Care Physician Start: 06-24-2023 Radionuclide whole b [place] bone study No Primary Care Physician Start: 03-28-2023 CT of chest and abdomen No Primary Care Physician Start: 03-27-2023 Radionuclide whole b [place]is bone study No Primary Care Physician Start: 06-18-2022 PET study for localization of tumor No Primary Care Physician Start: 10-12-2021 GENERAL PROCEDURE Yeni Whitfield MD, PhD Work Phone: Start: 08-22-2021 PET study for localization of tumor Dr. 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 Carlitos Brewer DO Work Phone: H/O: surgery H/O insertion of cholecystostomy tube Dr. Kitty Pruett MD History of cholecystectomy S/P laparoscopic cholecystectomy Dr. Carlitos Brewer DO Work Phone: Comment on above: 10/26/24 History of cholecystectomy S/P laparoscopic cholecystectomy Alejandra Yao PA-C History of radiation therapy History of radiation therapy CARLITOS BREWER DO History of radiation therapy History of radiation therapy, Dr. 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 Plan of Treatment Date Care Activity Detail Author Start: 2037 RSV VACCINE (1 - 1-dose 75+ series) RSV VACCINE (1 - 1-dose 75+ series) [facility] Start: 01-21-2033 Tetanus vaccination TETANUS [facility] Start: 11-01-2025 Prostate specific antigen measurement PROSTATE CANCER SCREENING DISCUSSION [facility] Start: 02-03-2025 End: 02-03-2025 Evaluation of diagnostic study results [facility] Start: 01-27-2025 Prostate specific antigen measurement [facility] Start: 12-27-2024 Influenza vaccination INFLUENZA VACCINE (#1) [facility] Start: 11-22-2024 End: 11-22-2024 Patient encounter procedure Clinical Lab at [facility] Start: 11-16-2024 End: 11-16-2024 Patient encounter procedure 11/16/2024 7:00 AM EDT Appointment Imaging [facility] [address] [place] [id number] Kelly Pimentel, FIRE BATTALION CHIEF-STRIPPER AND PRINTER [address] [place] [id number] Imaging [facility] Start: 11-12-2024 End: 11-12-2024 Patient encounter procedure 11/12/2024 9:00 AM EDT Appointment Imaging [facility] [address] [place] [id number] Erwin Morillo MD [address] [place] [address] [facility] Start: 11-04-2024 [facility] Start: 11-01-2024 End: 11-01-2025 PT Skull base to mid-thigh NUC PET HEAD TO THIGH Imaging STAT Prostate cancer Rising PSA following treatment for malignant neoplasm of prostate Metastasis to bone Expected: 11/01/2024, Expires: 11/01/2025 [facility] Comment on above: Expected: 11/01/2024, Expires: Start: 10-26-2024 Patient discharge [facility] Start: 10-26-2024 Anes intraperitoneal upper abdomen w/laps nos ANES IPER UPR ABD NOS [facility] Start: 10-26-2024 Laps surg cholecystectomy w/cholangiography LAPARO CHOLECYSTECTOMY/GRAPH [facility] Start: 10-26-2024 Electrocardiographic procedure [facility] Start: 10-26-2024 End: 10-26-2024 Biliary tract contrast procedure [facility] Start: 10-26-2024 Fluoroscopic guidance O.R. Fluoro for C-Arm [facility] Start: 10-26-2024 Venous catheter care management [facility] Start: 10-19-2024 [facility] Start: 10-13-2024 Patient discharge [facility] Start: 10-12-2024 Anaerobic Culture Anaerobic Culture [facility] Start: 10-12-2024 Anaerobic microbial culture Anaerobic Culture [facility] Start: 10-12-2024 Microbial culture, routine Wound Culture [facility] Start: 10-12-2024 Microscopic observation [Identifier] in Unspecified specimen by Gram stain Gram Stain [facility] Start: 10-12-2024 [facility] Start: 10-12-2024 Biopsy/Inj or Needle Placement Biopsy/Inj or Needle Placement [facility] Start: 10-12-2024 [facility] Start: 10-12-2024 Catheterization of vein [facility] Start: 10-12-2024 Oxygen therapy [facility] Start: 10-12-2024 Vital signs measurements [facility] Start: 10-12-2024 Hepatic function panel [facility] Start: 10-12-2024 Partial thromboplastin time, activated [facility] Start: 10-12-2024 Prothrombin time [facility] Start: 10-11-2024 End: 10-11-2024 Following clinical pathway protocol [facility] Start: 10-11-2024 [facility] Start: 10-11-2024 Bacteria identified in Blood by Culture Blood Culture [facility] Start: 10-11-2024 Application of intermittent pneumatic compression device [facility] Start: 10-11-2024 Ambulation without limitation [facility] Start: 10-11-2024 Assessment of risk of venous thromboembolism [facility] Start: 10-11-2024 Insertion of catheter into peripheral vein [facility] Start: 10-11-2024 Providing care according to standard [facility] Start: 10-11-2024 Referral to general surgeon [facility] Start: 10-11-2024 [facility] Start: 10-11-2024 Verification routine [facility] Start: 10-11-2024 Admission procedure [facility] Start: 10-11-2024 Hospital admission, emergency, from emergency room, medical nature [facility] Start: 10-11-2024 End: 10-12-2024 Source specific culture [facility] Start: 10-11-2024 [facility] Start: 10-11-2024 Inhalation therapy procedure [facility] Start: 10-11-2024 Patient referral to dietitian [facility] Start: 09-08-2024 [facility] Start: 08-25-2024 Venous catheter care management [facility] Start: 05-28-2024 Venous catheter care management [facility] Start: 05-25-2024 Venous catheter care management [facility] Start: 12-28-2023 COVID-19 VACCINE ( season) COVID-19 VACCINE ( season) [facility] Start: 09-01-2023 Venous catheter care management [facility] Start: 08-26-2023 Patient discharge [facility] Start: 07-10-2023 Nasal Screen MRSA/MSSA Nasal Screen MRSA/MSSA [facility] Start: 07-10-2023 [facility] Start: 07-07-2023 Patient referral [facility] Work Phone: Start: 06-27-2023 Procedure [facility] Start: 06-12-2023 Evaluation of diagnostic study results [facility] Start: 03-26-2022 Screening for malignant neoplasm of colon COLORECTAL CANCER SCREENING DISCUSSION [facility] Start: 12-27-2021 Influenza vaccination INFLUENZA VACCINE (Season Ended) [facility] Start: 10-12-2021 End: 10-12-2021 Patient encounter procedure Department o f Radiation Oncology Start: 10-10-2021 End: 10-10-2021 Patient encounter procedure 10/10/2021 Appointment Radiation Oncology Sukumar Whitfield MD, PhD [address] [place] [id number] Department of Radiation Oncology Start: 10-08-2021 End: 10-08-2021 Patient encounter procedure 10/08/2021 Appointment Radiation Oncology Sukumar Whitfield MD, PhD [address] [place] [address] Department of Radiation Oncology Start: 10-05-2021 End: 10-05-2021 Patient encounter procedure 10/05/2021 Appointment Radiation Oncology Sukumar Whitfield MD, PhD [address] [place] [address] Department of Radiation Oncology Start: 10-03-2021 End: 10-03-2021 Patient encounter procedure 10/03/2021 Appointment Radiation Oncology Sukumar Whitfield MD, PhD [address] [place] [address] Department of Radiation Oncology Start: 05-25-2021 Patient referral [facility] Work Phone: Start: 05-02-2018 Pneumococcal vaccination PNEUMOCOCCAL VACCINE SERIES (2 of 2 - PCV) [facility] Start: 2012 Prostate specific antigen measurement PROSTATE CANCER SCREENING DISCUSSION [facility] Start: 2012 Zoster vaccine hzv live for subcutaneous use ZOSTER (SHINGLES) VACCINE (1 of 2) [facility] Start: 12-02-2007 Colonoscopy COLORECTAL CANCER SCREENING DISCUSSION [facility] Start: 2002 Fasting lipid profile LIPID SCREENING [facility] Start: 2002 Lipid panel LIPID SCREENING [facility] Start: 1981 Third diphtheria, tetanus and acellular pertussis (DTaP) vaccination TDAP (ADULT) [facility] Start: 1980 Tetanus vaccination TETANUS [facility] Start: 1977 HIV screening HIV SCREENING DISCUSSION [facility] Start: 1968 PNEUMOCOCCAL VACCINE SERIES (1 - PCV) PNEUMOCOCCAL VACCINE SERIES (1 - PCV) [facility] Start: 12-02-1967 COVID-19 VACCINE (#1) COVID-19 VACCINE (#1) [facility] Start: 1962 Hepatitis C antibody, confirmatory test HEPATITIS C VIRUS SCREENING [facility] Start: 1962 Hepatitis C screening HEPATITIS C VIRUS SCREENING [facility] Alanine aminotransfe rase [Enzymatic activity/volume] in Serum or Plasma [facility] Albumin [Mass/volume ] in Serum or Plasma [facility] Alkaline phosphatase [Enzymatic activity/volume] in Serum or Plasma [facility] Anion gap in Serum or Plasma [facility] Bacteria identified in Unspecified specimen by Anaerobe culture [facility] Bacteria identified in Unspecified specimen by Anaerobe culture [facility] Bilirubin, total measurement [facility] Bilirubin.direct [Mass/volume] in Serum or Plasma [facility] BUN/Creatinine ratio [facility] Calcium [Mass/volume ] in Serum or Plasma [facility] Carbon dioxide, tota l [Moles/volume] in Central venous blood [facility] CBC W Auto Different ial panel - Blood [facility] CBC W Auto Different ial panel - Blood [facility] CBC W Auto Different ial panel - Blood [facility] CBC W Auto Different ial panel - Blood [facility] CBC W Auto Different ial panel - Blood [facility] CBC W Auto Different ial panel - Blood [facility] CBC W Auto Different ial panel - Blood [facility] CBC W Auto Different ial panel - Blood [facility] Comprehensive metabo lic 1999 panel - Serum or Plasma [facility] Comprehensive metabo lic 1999 panel - Serum or Plasma [facility] Comprehensive metabo lic 1999 panel - Serum or Plasma [facility] Comprehensive metabo lic 1999 panel - Serum or Plasma [facility] Creatinine [Mass/vol ume] in Serum or Plasma [facility] Erythrocyte mean cor puscular volume determination [facility] Glucose [Mass/volume ] in Serum or Plasma [facility] RAD ONC SIMULATION RAD ONC SIMULATION Imaging Routine Prostate cancer 09/20/2021 1:06 PM EDT [facility] Hematocrit [Volume F raction] of Blood [facility] Hemoglobin [Mass/vol ume] in Blood [facility] INR in Blood by Coag ulation assay [facility] Leukocytes [#/volume ] in Blood [facility] Mean corpuscular hem oglobin concentration determination [facility] Mean corpuscular hem oglobin determination [facility] Measurement of renal function [facility] Microscopic observat ion [Identifier] in Unspecified specimen by Gram stain [facility] Microscopic observat ion [Identifier] in Unspecified specimen by Gram stain [facility] Neutrophil count [facility] Neutrophil percent differential count [facility] NM Whole body Bone Views [facility] NM Whole body Bone Views [facility] Patient Education Luis Chopra Drain Tube Dc Post Op Drain Emptying Steps RAD RN Procedural Sedation [facility] Work Phone: Patient referral [facility] Work Phone: Platelets [#/volume] in Blood [facility] Potassium measurement [facility] Prostate specific an tigen measurement [facility] Prostate specific an tigen measurement [facility] Prostate specific an tigen measurement [facility] Prostate specific an tigen measurement [facility] Prostate specific an tigen measurement [facility] Prostate specific an tigen measurement [facility] Prostate specific an tigen measurement [facility] Prostate specific an tigen measurement [facility] PT Unspecified body region [facility] Radiation oncology A ND/OR radiotherapy [facility] Work Phone: Radionuclide imaging of perfusion of myocardium under exercise stress [facility] Red blood cell count [facility] Red cell distributio n width determination [facility] Serum chloride measurement [facility] Sodium measurement [facility] Total protein measurement [facility] Urea nitrogen [Mass/ volume] in Serum or Plasma [facility] US Heart [facility] Wound microscopy, cu lture and sensitivities [facility] Immunizations Immunization Date Immunization Notes Care Provider Masha scanlon 01-21-2023 tetanus toxoid, redu maxim diphtheria toxoid, and acellular pertussis vaccine, adsorbed; Translations: [Boostrix (Tdap)] CARLITOS BREWER DO [facility] 05-02-2017 pneumococcal polysaccharide vaccine, 23 valent [employer] [facility] Payers Date Payer Category Payer Private Health Insurance [id number] 2022 Managed Care (unspecified) [facility] PPO POS [id number] 2021 Self-pay [id number] 2021 Unknown [id number] 2020 Unknown [employer] M [place] [id number] 2020-Present [address] [place] [address] [id number] 1962 Unknown [id number] 2.16.840.1.147422.3.579.2. 627 1962 Unknown [id number] 2.16.840.1.057913.3.579.2. 627 1962 Unknown [id number] 2.16.840.1.411307.3.579.2. 627 1962 Unknown [id number] 2..840.1.278081.3.579.2. 627 1962 Unknown [id number] 2.16.840.1.870227.3.579.2. 627 1962 Unknown [id number] 2.0.1.188064.3.579.2. 627 1962 Unknown [id number] 2.840.1.788285.3.579.2. 627 1962 Unknown [id number] 2.0.1.820300.3.579.2. 627 1962 Unknown [id number] 2.0.1.355778.3.579.2. 594 1962 Unknown [id number] 2..1.800992.3.579.2. 594 1962 Unknown [id number] 2.0.1.407413.3.579.2. 594 Unknown [id number] Unknown [id number] Unknown [facility] PACKAGE PLAN [id number] Unknown [id number] 2.840.1.079294.3.579.2. 462 Unknown [id number] 2.840.1.736674.3.579.2. 462 Unknown [id number] 2.840.1.197530.3.579.2. 462 Unknown [id number] 2.840.1.402760.3.579.2. 462 Unknown [id number] 2.0.1.746676.3.579.2. 462 Unknown [id number] 2.16.840.1.429935.3.579.2. 462 Unknown [id number] 2.16.840.1.129385.3.579.2. 462 Unknown [id number] 2.16.840.1.343486.3.579.2. 462 Unknown [id number] 2.16.840.1.199854.3.579.2. 462 Unknown [id number] 2.16840.1.143729.3.579.2. 462 Unknown [id number] 2.16840.1.698782.3.579.2. 462 Unknown [id number] 2.840.1.204321.3.579.2. 462 Unknown [id number] 2.840.1.645873.3.579.2. 462 Unknown [id number] 2.840.1.681105.3.579.2. 462 Unknown [id number] 2.840.1.064435.3.579.2. 462 Unknown [id number] 2.840.1.861464.3.579.2. 462 Unknown [id number] 2.840.1.398426.3.579.2. 462 Unknown [id number] 2.840.1.985761.3.579.2. 462 Unknown [id number] 2.840.1.851501.3.579.2. 462 Unknown [id number] 2.840.1.593426.3.579.2. 462 Unknown [id number] 2.16840.1.736693.3.579.2. 462 Unknown [id number] 2.16.840.1.208435.3.579.2. 462 Unknown [id number] 2.16840.1.423117.3.579.2. 462 Unknown [id number] 2.840.1.993094.3.579.2. 462 Unknown [id number] 2.16.840.1.113991.3.579.2. 462 Unknown [id number] 2.16.840.1.316809.3.579.2. 462 Unknown [id number] 2.16.840.1.331822.3.579.2. 462 Unknown [id number] 2.16.840.1.480733.3.579.2. 462 Unknown [id number] 2.16.840.1.232303.3.579.2. 462 Unknown [id number] 2.16.840.1.614851.3.579.2. 462 Unknown [id number] 2.16.840.1.323691.3.579.2. 462 Unknown [id number] 2.16.840.1.604342.3.579.2. 462 Unknown [id number] 2.16.840.1.502983.3.579.2. 462 Unknown [id number] 2.16.840.1.326760.3.579.2. 462 Unknown [id number] 2.16.840.1.080545.3.579.2. 462 Unknown [id number] 2.16.840.1.210475.3.579.2. 462 Unknown [id number] 2.16.840.1.355467.3.579.2. 462 Unknown [id number] 2.16.840.1.895658.3.579.2. 462 Unknown [id number] 2.16.840.1.695762.3.579.2. 462 Unknown [id number] 2.16.840.1.520283.3.579.2. 462 Unknown [id number] 2.16.840.1.963440.3.579.2. 462 Social History Date Type Detail Facility Tobacco Nicotine Use: [facility] . Exposure to Tobacco Smoke Lives with someone who smokes. Type: Oral (Snuff, Chew). [facility] Comment on above: 4 tins per week 2 cans weekly Start: 1960 Sex Assigned At Male A [facility] Start: 05-25-2021 End: 08-15-2023 Tobacco smoking status NHIS Unknown if ever smoked [facility] Start: 07-05-2020 Chew [facility] Start: 09-19-2021 End: 11-01-2024 Tobacco smoking status NHIS Never smoked tobacco [facility] Start: 09-19-2021 End: 11-01-2024 Alcohol intake Current drinker of alcohol (finding) [facility] Start: 09-19-2021 End: 11-01-2024 Alcohol intake [facility] Start: 1960 Sex Assigned At Not on file O [facility] Tobacco smoking status [facility] Start: 01-21-2023 Tobacco smoking status Smokele ss tobacco user within last 30 days [facility] Comment on above: 2 cans weekly 4 tins per week Start: 03-22-2019 End: 09-14-2021 Sex Male (finding) [facility] Start: 10-15-2024 Tobacco smoking stat us NHIS Ex-smoker (finding) [facility] Start: 11-01-2024 Tobacco use and exposure Former smokeless tobacco user [facility] Start: 11-01-2024 Tobacco use panel [facility] Start: 11-01-2024 Tobacco Comment Used snuff tob acco for fourty plus years, quit three weeks ago [facility] Start: 11-01-2024 Alcohol Comment 0-2 drinks/week. [facility] Start: 10-30-2024 Gender identity Identifies as male gender (finding) [facility] Start: 10-30-2024 Sexual orientation Heterosexual (leilani dupree) [facility] Medical Equipment Procedure Code Equipment Code Equipment Origin al Text Equipment Identifier Dates Robot-assisted laparoscopic cholecystectomy without cholangiography VITO GARCIA LG JLSHAZIA FDA Start: 10-26-2024 Robot-assisted laparoscopic cholecystectomy without cholangiography CLIP,HEMOLOSHAZIA LG JLSHAZIA FDA Start: 10-26-2024 Robot-assisted laparoscopic cholecystectomy without cholangiography CLIP,HEMOLOSHAZIA GERSON PARIKHSHAZIA FDA Start: 10-26-2024 Robot-assisted laparoscopic cholecystectomy without cholangiography CLIP,HEMOLOSHAZIA REZA JLSHAZIA FDA Start: 10-26-2024 Robot-assisted laparoscopic cholecystectomy without cholangiography CLIP,HEMOLOSHAZIA JUAQUIN PARIKHSHAZIA FDA Start: 10-26-2024 Robot-assisted laparoscopic cholecystectomy without cholangiography CLIP,HEMOLOSHAZIA GERSON CARMEN FDA Start: 10-26-2024 Robot-assisted laparoscopic cholecystectomy without cholangiography CLIP,HEMOLOSHAZIA CARMEN FDA Start: 10-26-2024 Robot-assisted laparoscopic cholecystectomy without cholangiography CLIP,HEMOLOSHAZIA JUAQUIN PARIKHSHAZIA FDA Start: 10-26-2024 Robot-assisted laparoscopic cholecystectomy without cholangiography CLIP,HEMHOLLEY GERSON PARIKHSHAZIA FDA Start: 10-26-2024 Robot-assisted laparoscopic cholecystectomy without cholangiography CLIP,HEMHOLLEY REZA JLSHAZIA FDA Start: 10-26-2024 Robot-assisted laparoscopic cholecystectomy without cholangiography CLIP,HEMMAGDALENASHAZIA JUAQUIN PARIKHSHAZIA FDA Start: 10-26-2024 Robot-assisted laparoscopic cholecystectomy without cholangiography CLIP,HEMMAGDALENASHAZIA GERSON CARMEN FDA Start: 10-26-2024 Insertion, vascular access port ([id number]) Vascular port/catheter [id number] FDA Start: 08-26-2023 CLIP,HEMHOLLEY CARMEN FDA Start: 07-05-2020 SEALANT,FLOSEAL HEMOSTATIC 5ML FDA Start: 07-05-2020 CLIP,HEMOLOSHAZIA LG NELLA FDA Start: 07-05-2020 CLIP,HEMOLOCK LG NELLA FDA Start: 07-05-2020 CLIP,HEMOLOSHAZIA CARMEN FDA Start: 07-05-2020 CLIP,HEMOLOSHAZIA CARMEN FDA Start: 07-05-2020 CLIP,HEMOLOSHAZIA CARMEN FDA Start: 07-05-2020 CLIP,HEMHOLLEY CARMEN FDA Start: 07-05-2020 CLIP,HEMOLOSHAZIA CARMEN FDA Start: 07-05-2020 SEALANT,FLOSEAL HEMOSTATIC 5ML FDA Start: 07-05-2020 MARKER,FIDUCIAL GOLD FDA Start: 11-15-2020 MARKERS, FIDUCIA L GOLD FDA Start: 11-15-2020 CLIP,HEMOLOCK JUAQUIN CARMEN FDA Start: 07-05-2020 SEALANT,FLOSEAL HEMOSTATIC 5ML FDA Start: 07-05-2020 CLIP,HEMOLOCK JUAQUIN CARMEN FDA Start: 07-05-2020 CLIP,HEMOLOCK JUAQUIN CARMEN FDA Start: 07-05-2020 CLIP,HEMOLOCK JUAQUIN CARMEN FDA Start: 07-05-2020 CLIP,HEMOLOCK JUAQUIN CARMEN FDA Start: 07-05-2020 CLIP,HEMOLOCK JUAQUIN CARMEN FDA Start: 07-05-2020 CLIP,HEMOLOCK MO Nikki CARMEN FDA Start: 07-05-2020 CLIP,HEMOLOSHAZIA MO Nikki CARMEN FDA Start: 07-05-2020 SEALANT,FLOSEAL HEMOSTATIC 5ML FDA Start: 07-05-2020 MARKER,FIDUCIAL GOLD FDA Start: 11-15-2020 MARKERS, FIDUCIA L GOLD FDA Start: 11-15-2020 CLIP,HEMOLOCK JUAQUIN CARMEN FDA Start: 07-05-2020 SEALANT,FLOSEAL HEMOSTATIC 5ML FDA Start: 07-05-2020 CLIP,HEMOLOCK JUAQUIN CARMEN FDA Start: 07-05-2020 CLIP,HEMOLOCK JUAQUIN CARMEN FDA Start: 07-05-2020 CLIP,HEMOLOCK JUAQUIN CARMEN FDA Start: 07-05-2020 CLIP,HEMOLOCK JUAQUIN CARMEN FDA Start: 07-05-2020 CLIP,HEMOLOCK JUAQUIN CARMEN FDA Start: 07-05-2020 CLIP,HEMOLOCK MO Nikki PARIKH FDA Start: 07-05-2020 CLIP,HEMOLOCK MO Nikki PARKIH FDA Start: 07-05-2020 SEALANT,FLOSEAL HEMOSTATIC 5ML FDA Start: 07-05-2020 MARKER,FIDUCIAL GOLD FDA Start: 11-15-2020 MARKERS, FIDUCIA L GOLD FDA Start: 11-15-2020 CLIP,HEMOLOSHAZIA CARMEN FDA Start: 07-05-2020 SEALANT,FLOSEAL HEMOSTATIC 5ML FDA Start: 07-05-2020 CLIP,HEMOLOCK JUAQUIN CARMEN FDA Start: 07-05-2020 CLIP,HEMOLOCK JUAQUIN CARMEN FDA Start: 07-05-2020 CLIP,HEMOLOCK JUAQUIN CARMEN FDA Start: 07-05-2020 CLIP,HEMOLOCK JUAQUIN CARMEN FDA Start: 07-05-2020 CLIP,HEMOLOCK JUAQUIN CARMEN FDA Start: 07-05-2020 CLIP,HEMOLOCK ME Nikki CARMEN FDA Start: 07-05-2020 CLIP,HEMOLOCK MO Nikki CARMEN FDA Start: 07-05-2020 SEALANT,FLOSEAL HEMOSTATIC 5ML FDA Start: 07-05-2020 MARKER,FIDUCIAL GOLD FDA Start: 11-15-2020 MARKERS, FIDUCIA L GOLD FDA Start: 11-15-2020 CLIP,HEMOLOCK JUAQUIN CARMEN FDA Start: 07-05-2020 SEALANT,FLOSEAL HEMOSTATIC 5ML FDA Start: 07-05-2020 CLIP,HEMOLOSHAZIA CARMEN FDA Start: 07-05-2020 CLIP,HEMOLOSHAZIA CARMEN FDA Start: 07-05-2020 CLIP,HEMOLOCK JUAQUIN CARMEN FDA Start: 07-05-2020 CLIP,HEMOLOCK JUAQUIN CARMEN FDA Start: 07-05-2020 CLIP,HEMOLOCK JUAQUIN CARMEN FDA Start: 07-05-2020 CLIP,HEMOLOSHAZIA CARMEN FDA Start: 07-05-2020 CLIP,HEMOLOSHAZIA MO Nikki CARMEN FDA Start: 07-05-2020 SEALANT,FLOSEAL HEMOSTATIC 5ML FDA Start: 07-05-2020 MARKER,FIDUCIAL GOLD FDA Start: 11-15-2020 MARKERS, FIDUCIA L GOLD FDA Start: 11-15-2020 CLIP,HEMOLOCK JUAQUIN CARMEN FDA Start: 07-05-2020 SEALANT,FLOSEAL HEMOSTATIC 5ML FDA Start: 07-05-2020 CLIP,HEMOLOCK JUAQUIN CARMEN FDA Start: 07-05-2020 CLIP,HEMOLOCK JUAQUIN CARMEN FDA Start: 07-05-2020 CLIP,HEMOLOSHAZIA CARMEN FDA Start: 07-05-2020 CLIP,HEMOLOSHAZIA CARMEN FDA Start: 07-05-2020 CLIP,HEMOLOSHAZIA CARMEN FDA Start: 07-05-2020 CLIP,HEMOLOCK ME Nikki CARMEN FDA Start: 07-05-2020 CLIP,HEMOLOSHAZIA CARMEN FDA Start: 07-05-2020 SEALANT,FLOSEAL HEMOSTATIC 5ML FDA Start: 07-05-2020 MARKER,FIDUCIAL GOLD FDA Start: 11-15-2020 MARKERS, FIDUCIA L GOLD FDA Start: 11-15-2020 CLIP,HEMOLOSHAZIA CARMEN FDA Start: 07-05-2020 SEALANT,FLOSEAL HEMOSTATIC 5ML FDA Start: 07-05-2020 CLIP,HEMOLOCK JUAQUIN CARMEN FDA Start: 07-05-2020 CLIP,HEMOLOCK JUAQUIN CARMEN FDA Start: 07-05-2020 CLIP,HEMOLOSHAZIA CARMEN FDA Start: 07-05-2020 CLIP,HEMOLOSHAZIA CARMEN FDA Start: 07-05-2020 CLIP,HEMOLOSHAZIA CARMEN FDA Start: 07-05-2020 CLIP,HEMOLOSHAZIA MO Nikki CARMEN FDA Start: 07-05-2020 [facility] Nikki CARMEN FDA Start: 07-05-2020 SEALANT,FLOSEAL HEMOSTATIC 5ML FDA Start: 07-05-2020 MARKER,FIDUCIAL GOLD FDA Start: 11-15-2020 MARKERS, FIDUCIA L GOLD FDA Start: 11-15-2020 CLIP,HEMOLOSHAZIA CARMEN FDA Start: 07-05-2020 SEALANT,FLOSEAL HEMOSTATIC 5ML FDA Start: 07-05-2020 CLIP,HEMOLOSHAZIA CARMEN FDA Start: 07-05-2020 CLIP,HEMOLOSHAZIA CARMEN FDA Start: 07-05-2020 CLIP,HEMOLOSHAZIA CARMEN FDA Start: 07-05-2020 CLIP,HEMOLOSHAZIA CARMEN FDA Start: 07-05-2020 CLIP,HEMOLOSHAZIA CARMEN FDA Start: 07-05-2020 CLIP,HEMOLOCK MO Nikki CARMEN FDA Start: 07-05-2020 CLIP,HEMOLOSHAZIA MO Nikki CARMEN FDA Start: 07-05-2020 SEALANT,FLOSEAL HEMOSTATIC 5ML FDA Start: 07-05-2020 MARKER,FIDUCIAL GOLD FDA Start: 11-15-2020 MARKERS, FIDUCIA L GOLD FDA Start: 11-15-2020 CLIP,HEMOLOSHAZIA CARMEN FDA Start: 07-05-2020 SEALANT,FLOSEAL HEMOSTATIC 5ML FDA Start: 07-05-2020 CLIP,HEMOLOCK JUAQUIN CARMEN FDA Start: 07-05-2020 CLIP,HEMOLOSHAZIA CARMEN FDA Start: 07-05-2020 CLIP,HEMOLOSHAZIA CARMEN FDA Start: 07-05-2020 CLIP,HEMOLOSHAZIA CARMEN FDA Start: 07-05-2020 CLIP,HEMOLOSHAZIA CARMEN FDA Start: 07-05-2020 CLIP,HEMOLOCK MO Nikki CARMEN FDA Start: 07-05-2020 CLIP,HEMOLOCK MO Nikki JL FDA Start: 07-05-2020 SEALANT,FLOSEAL HEMOSTATIC 5ML FDA Start: 07-05-2020 MARKER,FIDUCIAL GOLD FDA Start: 11-15-2020 MARKERS, FIDUCIA L GOLD FDA Start: 11-15-2020 CLIP,HEMOLOSHAZIA CARMEN FDA Start: 07-05-2020 SEALANT,FLOSEAL HEMOSTATIC 5ML FDA Start: 07-05-2020 CLIP,HEMOLOSHAZIA CARMEN FDA Start: 07-05-2020 CLIP,HEMOLOCK JUAQUIN CARMEN FDA Start: 07-05-2020 CLIP,HEMOLOSHAZIA CARMEN FDA Start: 07-05-2020 CLIP,HEMOLOSHAZIA CARMEN FDA Start: 07-05-2020 CLIP,HEMOLOSHAZIA CARMEN FDA Start: 07-05-2020 CLIP,HEMOLOSHAZIA MO Nikki NELLA FDA Start: 07-05-2020 CLIP,HEMOLOSHAZIA MO Nikki NELLA FDA Start: 07-05-2020 SEALANT,FLOSEAL HEMOSTATIC 5ML FDA Start: 07-05-2020 MARKER,FIDUCIAL GOLD FDA Start: 11-15-2020 MARKERS, FIDUCIA L GOLD FDA Start: 11-15-2020 CLIP,HEMOLOSHAZIA CARMEN FDA Start: 07-05-2020 SEALANT,FLOSEAL HEMOSTATIC 5ML FDA Start: 07-05-2020 CLIP,HEMOLOSHAZIA CARMEN FDA Start: 07-05-2020 CLIP,HEMOLOSHAZIA CARMEN FDA Start: 07-05-2020 CLIP,HEMOLOSHAZIA CARMEN FDA Start: 07-05-2020 CLIP,HEMOLOSHAZIA CARMEN FDA Start: 07-05-2020 CLIP,HEMOLOSHAZIA CARMEN FDA Start: 07-05-2020 CLIP,HEMOLOCK Nikki CARMEN FDA Start: 07-05-2020 CLIP,HEMOLOCK Nikki CARMEN FDA Start: 07-05-2020 SEALANT,FLOSEAL HEMOSTATIC 5ML FDA Start: 07-05-2020 MARKER,FIDUCIAL GOLD FDA Start: 11-15-2020 MARKERS, FIDUCIA L GOLD FDA Start: 11-15-2020 CLIP,HEMOLOCK JUAQUIN CARMEN FDA Start: 07-05-2020 SEALANT,FLOSEAL HEMOSTATIC 5ML FDA Start: 07-05-2020 CLIP,HEMOLOCK JUAQUIN CARMEN FDA Start: 07-05-2020 CLIP,HEMOLOCK JUAQUIN CARMEN FDA Start: 07-05-2020 CLIP,HEMOLOCK JUAQUIN CARMEN FDA Start: 07-05-2020 CLIP,HEMOLOCK JUAQUIN CARMEN FDA Start: 07-05-2020 CLIP,HEMOLOSHAZIA CARMEN FDA Start: 07-05-2020 CLIP,HEMOLOSHAZIA CARMEN FDA Start: 07-05-2020 CLIP,HEMOLOSHAZIA MO Nikki CARMEN FDA Start: 07-05-2020 SEALANT,FLOSEAL HEMOSTATIC 5ML FDA Start: 07-05-2020 MARKER,FIDUCIAL GOLD FDA Start: 11-15-2020 MARKERS, FIDUCIA L GOLD FDA Start: 11-15-2020 CLIP,HEMOLOCK JUAQUIN CARMEN FDA Start: 07-05-2020 SEALANT,FLOSEAL HEMOSTATIC 5ML FDA Start: 07-05-2020 CLIP,HEMOLOSHAZIA CARMEN FDA Start: 07-05-2020 CLIP,HEMOLOCK JUAQUIN CARMEN FDA Start: 07-05-2020 CLIP,HEMOLOCK JUAQUIN CARMEN FDA Start: 07-05-2020 CLIP,HEMOLOCK JUAQUIN CARMEN FDA Start: 07-05-2020 CLIP,HEMOLOCK JUAQUIN CARMEN FDA Start: 07-05-2020 CLIP,HEMOLOCK Nikki CARMEN FDA Start: 07-05-2020 CLIP,HEMOLOSHAZIA MO Nikki NELLA FDA Start: 07-05-2020 SEALANT,FLOSEAL HEMOSTATIC 5ML FDA Start: 07-05-2020 MARKER,FIDUCIAL GOLD FDA Start: 11-15-2020 MARKERS, FIDUCIA L GOLD FDA Start: 11-15-2020 CLIP,HEMMAGDALENASHAZIA CARMEN FDA Start: 07-05-2020 SEALANT,FLOSEAL HEMOSTATIC 5ML FDA Start: 07-05-2020 CLIP,HEMOLOCK JUAQUIN CARMEN FDA Start: 07-05-2020 CLIP,HEMOLOSHAZIA CARMEN FDA Start: 07-05-2020 CLIP,HEMOLOSHAZIA CARMEN FDA Start: 07-05-2020 CLIP,HEMOLOSHAZIA CARMEN FDA Start: 07-05-2020 CLIP,HEMOLOSHAZIA CARMEN FDA Start: 07-05-2020 CLIP,HEMHOLLEY MO Nikki NELLA FDA Start: 07-05-2020 CLIP,HEMHOLLEY MO Nikki NELLA FDA Start: 07-05-2020 SEALANT,FLOSEAL HEMOSTATIC 5ML FDA Start: 07-05-2020 MARKER,FIDUCIAL GOLD FDA Start: 11-15-2020 MARKERS, FIDUCIA L GOLD FDA Start: 11-15-2020 CLIP,HEMOLOSHAZIA CARMEN FDA Start: 07-05-2020 SEALANT,FLOSEAL HEMOSTATIC 5ML FDA Start: 07-05-2020 CLIP,HEMOLOSHAZIA CARMEN FDA Start: 07-05-2020 CLIP,HEMOLOSHAZIA CARMEN FDA Start: 07-05-2020 CLIP,HEMOLOSHAZIA CARMEN FDA Start: 07-05-2020 CLIP,HEMOLOSHAZIA CARMEN FDA Start: 07-05-2020 CLIP,HEMOLOSHAZIA CARMEN FDA Start: 07-05-2020 CLIP,HEMMAGDALENASHAZIA MO Nikki CARMEN FDA Start: 07-05-2020 CLIP,HEMMAGDALENASHAZIA MO Nikki CARMEN FDA Start: 07-05-2020 SEALANT,FLOSEAL HEMOSTATIC 5ML FDA Start: 07-05-2020 MARKER,FIDUCIAL GOLD FDA Start: 11-15-2020 MARKERS, FIDUCIA L GOLD FDA Start: 11-15-2020 CLIP,HEMOLOSHAZIA CARMEN FDA Start: 07-05-2020 SEALANT,FLOSEAL HEMOSTATIC 5ML FDA Start: 07-05-2020 CLIP,HEMOLOSHAZIA CARMEN FDA Start: 07-05-2020 CLIP,HEMOLOSHAZIA CARMEN FDA Start: 07-05-2020 CLIP,HEMOLOSHAZIA CARMEN FDA Start: 07-05-2020 CLIP,HEMOLOCK JUAQUIN CARMEN FDA Start: 07-05-2020 CLIP,HEMOLOSHAZIA CARMEN FDA Start: 07-05-2020 CLIP,HEMOLOCK Nikki CARMEN FDA Start: 07-05-2020 CLIP,HEMOLOSHAZIA Jordan NELLA FDA Start: 07-05-2020 SEALANT,FLOSEAL HEMOSTATIC 5ML FDA Start: 07-05-2020 MARKER,FIDUCIAL GOLD FDA Start: 11-15-2020 MARKERS, FIDUCIA L GOLD FDA Start: 11-15-2020 CLIP,HEMOLOCK JUAQUIN CARMEN FDA Start: 07-05-2020 SEALANT,FLOSEAL HEMOSTATIC 5ML FDA Start: 07-05-2020 CLIP,HEMOLOSHAZIA CARMEN FDA Start: 07-05-2020 CLIP,HEMOLOSHAZIA CARMEN FDA Start: 07-05-2020 CLIP,HEMOLOSHAZIA CARMEN FDA Start: 07-05-2020 CLIP,HEMOLOSHAZIA CARMEN FDA Start: 07-05-2020 CLIP,HEMOLOSHAZIA CARMEN FDA Start: 07-05-2020 CLIP,HEMOLOCK ME Jordan NELLA FDA Start: 07-05-2020 CLIP,HEMOLOCK ME Nikki PARIKHSHAZIA FDA Start: 07-05-2020 SEALANT,FLOSEAL HEMOSTATIC 5ML FDA Start: 07-05-2020 MARKER,FIDUCIAL GOLD FDA Start: 11-15-2020 MARKERS, FIDUCIA L GOLD FDA Start: 11-15-2020 CLIP,HEMOLOCK JUAQUIN CARMEN FDA Start: 07-05-2020 SEALANT,FLOSEAL HEMOSTATIC 5ML FDA Start: 07-05-2020 CLIP,HEMOLOCK JUAQUIN CARMEN FDA Start: 07-05-2020 CLIP,HEMOLOCK JUAQUIN CARMEN FDA Start: 07-05-2020 CLIP,HEMOLOCK JUAQUIN CARMEN FDA Start: 07-05-2020 CLIP,HEMOLOSHAZIA CARMEN FDA Start: 07-05-2020 CLIP,HEMOLOSHAZIA CARMEN FDA Start: 07-05-2020 CLIP,HEMOLOCK ME Jordan NELLA FDA Start: 07-05-2020 CLIP,HEMOLOCK ME Jordan NELLA FDA Start: 07-05-2020 SEALANT,FLOSEAL HEMOSTATIC 5ML FDA Start: 07-05-2020 MARKER,FIDUCIAL GOLD FDA Start: 11-15-2020 MARKERS, FIDUCIA L GOLD FDA Start: 11-15-2020 CLIP,HEMOLOSHAZIA CARMEN FDA Start: 07-05-2020 SEALANT,FLOSEAL HEMOSTATIC 5ML FDA Start: 07-05-2020 CLIP,HEMOLOCK JUAQUIN CARMEN FDA Start: 07-05-2020 CLIP,HEMOLOSHAZIA CARMEN FDA Start: 07-05-2020 CLIP,HEMOLOSHAZIA CARMEN FDA Start: 07-05-2020 CLIP,HEMOLOSHAZIA CARMEN FDA Start: 07-05-2020 CLIP,HEMOLOSHAZIA CARMEN FDA Start: 07-05-2020 CLIP,HEMOLOSHAZIA MO Nikki CARMEN FDA Start: 07-05-2020 CLIP,HEMOLOSHAZIA MO Nikki CARMEN FDA Start: 07-05-2020 SEALANT,FLOSEAL HEMOSTATIC 5ML FDA Start: 07-05-2020 MARKER,FIDUCIAL GOLD FDA Start: 11-15-2020 MARKERS, FIDUCIA L GOLD FDA Start: 11-15-2020 CLIP,HEMOLOSHAZIA CARMEN FDA Start: 07-05-2020 SEALANT,FLOSEAL HEMOSTATIC 5ML FDA Start: 07-05-2020 CLIP,HEMOLOSHAZIA CARMEN FDA Start: 07-05-2020 CLIP,HEMOLOSHAZIA CARMEN FDA Start: 07-05-2020 CLIP,HEMOLOSHAZIA CARMEN FDA Start: 07-05-2020 CLIP,HEMOLOSHAZIA CARMEN FDA Start: 07-05-2020 CLIP,HEMOLOSHAZIA CARMEN FDA Start: 07-05-2020 CLIP,HEMHOLLEY MO Nikki CARMEN FDA Start: 07-05-2020 CLIP,HEMOLOSHAZIA MO Nikki CARMEN FDA Start: 07-05-2020 SEALANT,FLOSEAL HEMOSTATIC 5ML FDA Start: 07-05-2020 MARKER,FIDUCIAL GOLD FDA Start: 11-15-2020 MARKERS, FIDUCIA L GOLD FDA Start: 11-15-2020 CLIP,HEMOLOSHAZIA CARMEN FDA Start: 07-05-2020 SEALANT,FLOSEAL HEMOSTATIC 5ML FDA Start: 07-05-2020 CLIP,HEMOLOSHAZIA CARMEN FDA Start: 07-05-2020 CLIP,HEMOLOSHAZIA CARMEN FDA Start: 07-05-2020 CLIP,HEMOLOCK JUAQUIN CARMEN FDA Start: 07-05-2020 CLIP,HEMOLOCK JUAQUIN CARMEN FDA Start: 07-05-2020 CLIP,HEMOLOCK JUAQUIN CARMEN FDA Start: 07-05-2020 CLIP,HEMOLOCK ME Nikki CARMEN FDA Start: 07-05-2020 CLIP,HEMOLOCK ME Nikki CARMEN FDA Start: 07-05-2020 SEALANT,FLOSEAL HEMOSTATIC 5ML FDA Start: 07-05-2020 MARKER,FIDUCIAL GOLD FDA Start: 11-15-2020 MARKERS, FIDUCIA L GOLD FDA Start: 11-15-2020 CLIP,HEMOLOCK JUAQUIN CARMEN FDA Start: 07-05-2020 SEALANT,FLOSEAL HEMOSTATIC 5ML FDA Start: 07-05-2020 CLIP,HEMOLOCK JUAQUIN CARMEN FDA Start: 07-05-2020 CLIP,HEMOLOCK JUAQUIN CARMEN FDA Start: 07-05-2020 CLIP,HEMOLOCK JUAQUIN CARMEN FDA Start: 07-05-2020 CLIP,HEMOLOCK JUAQUIN CARMEN FDA Start: 07-05-2020 CLIP,HEMOLOCK JUAQUIN CARMEN FDA Start: 07-05-2020 CLIP,HEMOLOCK ME Nikki CARMEN FDA Start: 07-05-2020 CLIP,HEMOLOCK ME Nikki CARMEN FDA Start: 07-05-2020 SEALANT,FLOSEAL HEMOSTATIC 5ML FDA Start: 07-05-2020 MARKER,FIDUCIAL GOLD FDA Start: 11-15-2020 MARKERS, FIDUCIA L GOLD FDA Start: 11-15-2020 CLIP,HEMOLOCK JUAQUIN CARMEN FDA Start: 07-05-2020 SEALANT,FLOSEAL HEMOSTATIC 5ML FDA Start: 07-05-2020 CLIP,HEMOLOCK JUAQUIN CARMEN FDA Start: 07-05-2020 CLIP,HEMOLOCK JUAQUIN CARMEN FDA Start: 07-05-2020 CLIP,HEMOLOCK JUAQUIN CARMEN FDA Start: 07-05-2020 CLIP,HEMOLOCK JUAQUIN CARMEN FDA Start: 07-05-2020 CLIP,HEMOLOCK JUAQUIN CARMEN FDA Start: 07-05-2020 CLIP,HEMOLOCK ME Nikki CARMEN FDA Start: 07-05-2020 CLIP,HEMOLOCK ME Nikki CARMEN FDA Start: 07-05-2020 SEALANT,FLOSEAL HEMOSTATIC 5ML FDA Start: 07-05-2020 MARKER,FIDUCIAL GOLD FDA Start: 11-15-2020 MARKERS, FIDUCIA L GOLD FDA Start: 11-15-2020 CLIP,HEMOLOSHAZIA CARMEN FDA Start: 07-05-2020 SEALANT,FLOSEAL HEMOSTATIC 5ML FDA Start: 07-05-2020 CLIP,HEMOLOSHAZIA CARMEN FDA Start: 07-05-2020 CLIP,HEMOLOSHAZIA CARMEN FDA Start: 07-05-2020 CLIP,HEMOLOCK JUAQUIN CARMEN FDA Start: 07-05-2020 CLIP,HEMOLOSHAZIA CARMEN FDA Start: 07-05-2020 CLIP,HEMOLOSHAZIA CARMEN FDA Start: 07-05-2020 CLIP,HEMOLOSHAZIA MO Nikki CARMEN FDA Start: 07-05-2020 CLIP,HEMOLOSHAZIA MO Nikki CARMEN FDA Start: 07-05-2020 SEALANT,FLOSEAL HEMOSTATIC 5ML FDA Start: 07-05-2020 MARKER,FIDUCIAL GOLD FDA Start: 11-15-2020 MARKERS, FIDUCIA L GOLD FDA Start: 11-15-2020 CLIP,HEMOLOSHAZIA CARMEN FDA Start: 07-05-2020 SEALANT,FLOSEAL HEMOSTATIC 5ML FDA Start: 07-05-2020 CLIP,HEMOLOSHAZIA CARMEN FDA Start: 07-05-2020 CLIP,HEMOLOSHAZIA CARMEN FDA Start: 07-05-2020 CLIP,HEMOLOSHAZIA CARMEN FDA Start: 07-05-2020 CLIP,HEMOLOSHAZIA CARMEN FDA Start: 07-05-2020 CLIP,HEMOLOCK JUAQUIN CARMEN FDA Start: 07-05-2020 CLIP,HEMOLOCK MO Nikki CARMEN FDA Start: 07-05-2020 CLIP,HEMOLOCK MO Nikki CARMEN FDA Start: 07-05-2020 SEALANT,FLOSEAL HEMOSTATIC 5ML FDA Start: 07-05-2020 MARKER,FIDUCIAL GOLD FDA Start: 11-15-2020 MARKERS, FIDUCIA L GOLD FDA Start: 11-15-2020 CLIP,HEMOLOSHAZIA CARMEN FDA Start: 07-05-2020 SEALANT,FLOSEAL HEMOSTATIC 5ML FDA Start: 07-05-2020 CLIP,HEMOLOCK JUAQUIN CARMEN FDA Start: 07-05-2020 CLIP,HEMOLOCK JUAQUIN CARMEN FDA Start: 07-05-2020 CLIP,HEMOLOCK JUAQUIN CARMEN FDA Start: 07-05-2020 CLIP,HEMOLOCK JUAQUIN CARMEN FDA Start: 07-05-2020 CLIP,HEMOLOCK JUAQUIN CARMEN FDA Start: 07-05-2020 CLIP,HEMOLOCK MO Nikki CARMEN FDA Start: 07-05-2020 CLIP,HEMOLOCK MO Nikki CARMEN FDA Start: 07-05-2020 SEALANT,FLOSEAL HEMOSTATIC 5ML FDA Start: 07-05-2020 MARKER,FIDUCIAL GOLD FDA Start: 11-15-2020 MARKERS, FIDUCIA L GOLD FDA Start: 11-15-2020 CLIP,HEMOLOCK JUAQUIN CARMEN FDA Start: 07-05-2020 SEALANT,FLOSEAL HEMOSTATIC 5ML FDA Start: 07-05-2020 CLIP,HEMOLOSHAZIA CARMEN FDA Start: 07-05-2020 CLIP,HEMOLOCK JUAQUIN CARMEN FDA Start: 07-05-2020 CLIP,HEMOLOCK JUAQUIN CARMEN FDA Start: 07-05-2020 CLIP,HEMOLOCK JUAQUIN CARMEN FDA Start: 07-05-2020 CLIP,HEMOLOSHAZIA CARMEN FDA Start: 07-05-2020 CLIP,HEMHOLLEY MO Nikki CARMEN FDA Start: 07-05-2020 CLIP,HEMOLOSHAZIA MO Nikki CARMEN FDA Start: 07-05-2020 SEALANT,FLOSEAL HEMOSTATIC 5ML FDA Start: 07-05-2020 MARKER,FIDUCIAL GOLD FDA Start: 11-15-2020 MARKERS, FIDUCIA L GOLD FDA Start: 11-15-2020 CLIP,HEMOLOCK JUAQUIN CARMEN FDA Start: 07-05-2020 SEALANT,FLOSEAL HEMOSTATIC 5ML FDA Start: 07-05-2020 CLIP,HEMOLOCK JUAQUIN CARMEN FDA Start: 07-05-2020 CLIP,HEMOLOCK JUAQUIN CARMEN FDA Start: 07-05-2020 CLIP,HEMOLOCK JUAQUIN CARMEN FDA Start: 07-05-2020 CLIP,HEMOLOCK JUAQUIN CARMEN FDA Start: 07-05-2020 CLIP,HEMOLOCK JUAQUNI CARMEN FDA Start: 07-05-2020 CLIP,VITO CARMEN FDA Start: 07-05-2020 CLIP,VITO CARMEN FDA Start: 07-05-2020 SEALANT,FLOSEAL HEMOSTATIC 5ML FDA Start: 07-05-2020 MARKER,FIDUCIAL GOLD FDA Start: 11-15-2020 MARKERS, FIDUCIA L GOLD FDA Start: 11-15-2020 Goals Date Patient Goal Desired Activity /State Functional Status Date Assessment Result Facility 10-13-2024 Functional status Patient Activity Bedres t [facility] Work Phone: 10-12-2024 Functional status Standby Assist ;With Assist of 1 [facility] Work Phone: Mental Status Date Assessment Result Facility 10-26-2024 Cognitive function Voice/Name [facility] Work Phone: 10-26-2024 Cognitive function Patient Orien tation Person;Place;Time [facility] Work Phone: 10-12-2024 Cognitive function Voice/Name [facility] Work Phone: 10-12-2024 Cognitive function Appropriate [facility] Work Phone: 10-11-2024 Cognitive function Level Of Cons ciousness Awake;Appropriate;Follows Commands [facility] Work Phone: 2023 Cognitive function Voice/Name [facility] Work Phone: 08-26-2023 Cognitive function Voice/Name [facility] Work Phone: Clinical Notes 08-18-2018 to 02-03-2025 Note Date & Type Note Facility 02-03-[address] [facility] 02-03-2025 Progress note Note Date/Time February 03, 2025 2:57pm [facility] [place] [facility] [place] [address] OFFICE VISIT Date of Service: 02/03/25 MR#: [id number] Acct: [id number] Name: DANNIE EDMONDSON Rep #: [id number] : 1960 Provider: ANEUDY Williamson Age/Sex: 64/M [place] [facility] Status: Signed HPI HPI History of Present Illness Details: Mr. Edmondson is a pleasant 64-year-old man with no previous cardiac history who saysthat he has been having intermittent palpitations dating back to 2016. He had [id number] Holter monitor placed which demonstrated predominantly sinus rhythm withfrequent premature atrial complexes. This total 2.5% of the monitoring. Most ofthem were isolated. There was no atrial fibrillation or supraventricular tachyarrhythmias noted. He also had an echocardiogram performed with demonstrated an ejection fraction of 50 to 55% there was mild mitral regurgitation. During the echocardiogram it was felt that he was in an abnormalrhythm and an EKG was obtained which appeared to demonstrate atrial flutter witha 2-1 block at a rate of 156 bpm there was supraventricular tachyarrhythmia cannot be completely excluded. The EKG is not particularly clear. A subsequentEKG however demonstrated normal sinus rhythm with a rate of 99 bpm. He gets quite fatigued when he goes into this rhythm. He had a previous stress test in 2016 where he exercised to 13 metabolic equivalents without any angina or exercise-induced arrhythmias. He had been more having more of these palpitations and he underwent an event monitor placement which demonstrated evidence of atrial fibrillation as well as atrial flutter. He has been started on anticoagulation with Xarelto and had his Toprol increased. In addition he has been started on flecainide. He says that these episodes are now few and farbetween. Heart catheterization on 01/05/2024 showed normal coronary arteries and LV gram 60%. Medical therapy was recommended. He denies chest, arm, jaw, or neck discomfort. He denies palpitations. He continues with bilateral lower extremity edema. He denies claudication. He continues with shortness of breath with activity. He acknowledges shortness of breath at rest. He denies orthopnea, or PND. He denies chronic cough. He denies significant, sudden weight gain. He denies lightheadedness, dizziness, near-syncope, or syncope. He denies blood in urine, blood in stool, or epistaxis. He denies fever with chills. He denies myalgia. He continue with weakness and fatigue. His exercise level has remained stable. 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 Is patient in pain?: No Allergies ciprofloxacin (From Cipro) Allergy (Unknown, Verified 02/03/25 14:31) swelling Medications ?Medication ?Instructions ?Recorded ?Confirmed ?Type albuterol sulfate 90 mcg/actuation 2 puff inhalation Q 6H PRN Asthma 09/07/18 02/03/25 History aerosol inhaler (Ventolin HFA) albuterol sulfate 2.5 mg/3 mL 1.25 mg inhalation Q6H P RN PRN 06/28/20 02/03/25 History (0.083 %) solution for nebulization Asthma montelukast 10 mg tablet 10 mg PO QHS asthma 07/05/20 02/03/25 History calcium carbonate (Calcium 600) 600 mg PO DAILY supple ment 08/15/23 02/03/25 History fluticasone 100 mcg-salmeterol 50 1 inh inhalation Q12 H asthma 10/06/23 02/03/25 History mcg/dose blistr powdr for inhalation (Advair Diskus) omeprazole 20 mg tablet,delayed 20 mg PO QHS gerd 0712/1902/03/25 History release flecainide 100 mg tablet 100 mg PO BID bp #180 TABLET S 08/03/24 02/03/25 Rx metoprolol succinate 100 mg 100 mg PO DAILY bp #90 tab s 08/03/24 02/03/25 Rx tablet,extended release 24 hr rivaroxaban 20 mg tablet 20 mg PO QHS BLOOD THINNER # 90 tabs 08/03/24 02/03/25 Rx Held on 10/26/24. Instructions: Resume on 10/28/24. albuterol sulfate 1.25 mg/3 mL 1.25 mg inhalation 4X/D AY PRN PRN 10/11/24 02/03/25 History solution for nebulization shortness of breath or wheez ing polyethylene glycol 3350 17 4 g PO ONCE PRN 12/01/24 1 History gram/dose oral powder (Miralax) oxycodone 10 mg tablet 10 mg PO Q4H PRN 02/03/25 History Have you fallen in the past year?: Yes PFSH Medical History Cancer Ambulates with cane Former smoker Chronic cough History of Holter monitoring Anxiety Hoarseness of voice Bilateral lower extremity edema Encounter for chemotherapy management History of steroid therapy Arthritis Gastric reflux Patient uses snuff Shortness of breath on exertion History of pain when walking History of edema History of atrial fibrillation Encounter for education Metastasis to bone Regional lymph node metastasis present Rising PSA following treatment for malignant neoplasm of prostate Prostate cancer metastatic to intraabdominal lymph node Edema History of COVID-19 Wears hearing aid Wears contact lenses Alcohol use DVT (deep venous thrombosis) Back pain Injury of head and neck Migraine headache History of echocardiogram History of stress test Cardiology follow-up encounter Hypertension Prostate cancer Acute on chronic diastolic (congestive) heart failure Paroxysmal supraventricular tachycardia Asthma Paroxysmal atrial flutter (08/18/18) Intermittent palpitations Obesity Surgical History S/P laparoscopic cholecystectomy History of surgery History of cardiac catheterization Hx of cystoscopy History of prostatectomy (07/05/20) History of amputation of finger of right hand History of left inguinal hernia repair History of bilateral inguinal hernia repair History of arthroscopy of left knee Family History Mother CAD (coronary artery disease) Kidney disease Father Heart disease CHF Lung cancer Uncle Myocardial infarction Paternal from [place] age 38 Social History household members: spouse current occupational status: employed Smoking Status: Former smoker Smokeless tobacco user: chewing tobacco and other alcohol intake: current alcohol intake frequency: a few times a week Alcohol type: beer details: 12 pack or more in a week substance use type: does not use caffeine: No ROS Const Const: Positive for fatigue and weakness; Negative for headache(s) or frequent falls Eyes Eyes: Negative for blurry vision ENT ENT: Negative for headache(s), dizziness or Nosebleed/epistaxis Cardio Chest Pain: No Palpitations: No Edema: None Muscle aches with walking: None Resp Respiratory: Positive for SOB with activity and SOB at rest; Negative for SOB orthopnea\SOB lying down GI GI: Negative nausea, vomiting, heartburn, bright, red blood in stools or black,tarry stools : Negative for hematuria Musc Musc: Negative for muscle aches/ myalgia Skin Skin: Negative non-healing lesions or rash Neuro Neuro: Positive for weakness; Negative for dizziness, lightheadedness, near syncope, syncope, frequent falls, headache(s) or blurry vision Endo Endo: Positive for fatigue Allergy Allergy/Immunology: Negative for rash Cardiology Exam Const Appearance: cooperative, healthy appearing, comfortable and no acute distress Nutritional Appearance: well nourished and overweight Orientation: alert, awake and oriented x3 Head Head: normal to inspection Ears: hearing grossly normal bilaterally Nose: external nose normal Face and Sinus: face symmetric Mouth: moist mucous membranes Eyes General: appearance normal, both eyes and all related structures Eyelids: eyelids normal EOM: EOM intact bilaterally Neck Neck: normal visual inspection and no JVD Carotids: normal carotid upstroke Chest Chest inspection: normal inspection of the chest, symmetric chest movement and normal respiratory effort; Negative cough Auscultation: Bilateral: Clear to Auscultation Cardio Rate: regular rate Rhythm: regular rhythm Heart sounds: S1 normal and S2 normal; Negative rub, gallop or murmur GI GI: normal to inspection Neuro General: patient alert, patient awake, patient oriented x3 and CN's II-XI intactbilaterally Skin Skin: no rashes or lesions noted Extremities Pulses: Normal: Right Posterior Tibial Pulse, Left Posterior Tibial Pulse, RightRadial Pulse and Left Radial Pulse Lower Extremity Edema: +1: Bilateral (compression stockings) Psych Psychological: normal affect Supplemental Info Supplemental Information Echocardiogram from 07/23/2023: Interpretation Summary Normal LV size. Left ventricular systolic function is normal. Moderate focal aortic valve calcification. Stage 1 diastolic dysfunction. Mean aortic valve gradient 13 mmHg. Mild aortic stenosis. Echocardiogram from 06/18/2022: Interpretation Summary Normal LV size. Left ventricular systolic function is normal. Bileaflet diffuse mitral valve thickening. Mean aortic valve gradient 20 mmHg. Trivial aortic valve insufficiency. Moderate focal aortic valve thickening. Stress testing 07/23/2023: Conclusion: Normal exercise myocardial perfusion stress test at a moderate workload Preserved ejection fraction. Previous apical infarct cannot be excluded Cardiac Catheterization 01/05/24 CONCLUSIONS Normal coronary arteries Normal LV size, wall motion,and systolic function Aortic Valve Stenosis- Mild CORONARY ANGIOGRAPHY DOMINANCE: Left Dominant LEFT HEART ASSESSMENT Left Ventricular Ejection Fraction: by LV Gram 60 % Normal LV wall motion Normal Left Ventricular systolic function LEFT MAIN: Angiographically normal LEFT ANTERIOR DESCENDING ARTERY: Angiographically normal CIRCUMFLEX ARTERY: Angiographically normal Chest CTA 09/10/23 IMPRESSION: No pulmonary embolism or evidence of acute airspace disease. Mild aortic valvular calcifications and mild coronary atherosclerosis. Nonspecific prominent right hilar 1.3 cm lymph node. Holter monitor 09/19/23 Conclusion Normal Sinus Rhythm with rare PVCs and occasional PACs Diagnostics: Electrocardiogram Echocardiogram Stress Test Stress Test Nuclear Medicine Cardiac Catheterization Chest X-Ray Chest CTA Abdomen/Pelvis CT Past Visits: Cardiology Visit Today Assessment and Plan Assessment and Plan (1) Paroxysmal atrial flutter: Status: Chronic Plan: [id number] score: 3 (HTN, DVT +2) (3.2% stroke risk) Atrial fibrillation/flutter stage: 3A, paroxysmal 12 Lead EC02/03/2025- Sinus Rhythm/Sinus arrhythmia at 77 bpm Echocardiogram: 07/23/2023-EF: Normal, normal left atrium, normal right atrium Heart Rate Control: Metoprolol succinate 100 mg p.o. daily Antiarrhythmic: Flecainide 100 mg p.o. twice daily Anticoagulation/CVA Protection: Xarelto 20 mg p.o. daily He will continue current medical therapy. He states he is currently in hospice therapy. We will continue to follow. (2) Dyspnea on exertion: Status: Chronic Plan: On account of his shortness of breath, he underwent a heart catheterization 01/05/2024 that showed normal coronary arteries. He had an echocardiogram in June 2023 that showed LV function to be normal. At this time, we will continueto monitor from a cardiac perspective. No changes made. Orders: Orders 12 Lead EKG performed by [facility] Today I47.1 - Supraventricular tachycardia, I48.92- Unspecified atrial flutter, R06.09 - Other forms of dyspnea Plan Details Additional Comments: Thank you for allowing us to participate in the patients plan of care, if you have any questions please do not hesitate to call. Plan was reviewed with patient/family member along with red flag symptoms. Understanding was acknowledged. Questions were answered to apparent satisfaction. This note was generated using a voice recognition system and there may be incorrect words, spelling or punctuation that were not noted when reviewing the office note prior to saving. Portions of this documentation were copied and pasted from previous office visitnotes to provide a cohesive continuity of the history. The note has been reviewed, edited, and updated, as necessary. Follow Up: PRN Coding Level of Care Code Off vis,est,level 3 Diagnoses Paroxysmal atrial flutter I48.92 Dyspnea on exertion R06.09 Coding Level of Care Code Off vis,est,level 3 Diagnoses Paroxysmal atrial flutter I48.92 Dyspnea on exertion R06.09 Clinical Quality Measures Falls Risk Screening/Assistive Devices Have you fallen in the past year?: Yes 02/03/25 1618 <Electronically signed by Catalino AMADO> Date _ Catalino PEDRAZAC Cosigner Signature: Date (if applicable) CC: Dr. Carlitos Brewer, DO ~ 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 Work Phone: [phone]) 652-994207-10-2025 [facility] [place] [address] OFFICE VISIT Date of Service: 11/04/24 1005 MR#: [id number] Acct: [id number] Name: DANNIE EDMONDSON Rep #: [id number] : 1960 From: Jignesh haro MD Age/Sex: 63/M [place] [facility] Status: Signed HPI Subjective Date of Service 11/04/24 Chief Complaint Metastatic prostate cancer History of Present Illness 63-year-old male with metastatic castrate resistant prostate cancer seen in consultation February 2023 for further management. April 2020: Had an elevated screening PSA of 17, underwent TRUS guided prostate biopsy that showed an adenocarcinoma with the highest Chuck score being 10 (5+5). Staging showed no evidence for metastatic disease. June 2020: Patient underwent radical prostatectomy and lymph node dissection.? Pathology demonstrated Rena Lara 5+5 adenocarcinoma involving 85% of the gland, multifocal extraprostatic extension is identified involving the right, left posterior lateral and seminal vesicles.? Seminal vesicle invasion ispresent.? Perineural invasion is present.? Margin focally positive (2 mm right lateral margin), 2 lymph nodes were obtained and did not contain metastatic disease.? pT3b pN0 September 2020 due to persistently elevated residual PSA, patient completed PET scanwhich demonstrated increased radiopharmaceutical concentration noted in the lower pelvis in the region of the prostate bed, as well as the upper midline andright mid pelvic mesentery corresponding to soft tissue nodularity in his fulfills quantitative criteria for viable neoplasm. November - January 2021 underwent adjuvant radiation therapy consisting of 4500 cGy delivered in 25 fractions to the prostate bed and pelvis followed by boost consisting of 2520 cGy delivered in 14 fractions to the prostate bed.? This brought the total dose delivered to the prostate bed to 7020 cGy in 39 fractions. July 2021 PSMA PET demonstrated focal increased localized activity involving the retroperitoneum and presacral space.? Anterior to the sacrum there is an 8 mm nodule with abnormal activity with an SUV of 44.1.? There is a 9 mm lymph node between the lower IVC and aorta with an SUV of 43.6.? There is a lymph nodeinferior to the left renal vein with an SUV of 23.5.? No other evidence of disease appreciated. August?September 2021 received SBRT consisting of 3000 cGy in 5 fractions to the presacral adenopathy (4000cGy to GTV) And 4000 cGy delivered to the elective periaortic region with a simultaneous integrated boost of 5500 cGy delivered to the concerning lymph nodes. May 2022: Due to a rising PSMA PET CT: SKELETAL: Enhanced radiopharmaceutical is defined in the left proximal femur, the third and fifth lumbar vertebrae, the sacrum, the fourth thoracic vertebra, the left posterior second rib, the spinous process of the lower cervical spine, with a calculated maximal standard uptake value IMPRESSION: 1. ABNORMAL EXAMINATION INDICATIVE OF MALIGNANT VIABLE NEOPLASM. 2. Increased radiopharmaceutical concentration encountered in the lower midline pelvic mesentery fulfills quantitative criteria for viable neoplasm. (Eiber et al., Journal of Nuclear Medicine 59:469, 2018). 3. Enhanced tracer uptake noted in the osseous skeletal structures fulfills quantitative criteria for viable osseous neoplasia. 4. The increase in radiotracer uptake visualized the left anterior neck corresponding to soft tissue with fatty hilus is most consistent with reactive adenopathy. 5. Increased radiopharmaceutical distribution noted in the abdominal retroperitoneum in several locations does not fulfill quantitative criteria for malignant infiltration. July 2022 next generation sequence and genetic testing liquid at [facility]: No mutations identified. March 27, 2023 bone scan: IMPRESSION: 1. The increase in radiopharmaceutical defined in the fourth lumbar vertebra is most consistent with skeletal metastatic disease. Plain film radiography correlation is recommended. 2. Degenerative arthritis is defined in the bilateral shoulders, right and left knees, the midfoot bilaterally and the thoracic spine. March 28, 2023 chest abdomen and pelvis CT: IMPRESSION: Small hepatic cysts. Heterogeneous appearance of the lumbar vertebrae suggestive of possible metastasis. The patient is status post prostatectomy. June 24, 2023 bone scan: IMPRESSION: 1. The increase in tracer uptake redefined and newly apparent in the fourth lumbar vertebra and left acetabulum and left sacroiliac joint are consistent with isolated osteoblastic turnover attributed to the patient''s known diagnosis of primary prostate carcinoma. 2. Degenerative arthritis is defined in the bilateral shoulder and wrist articulations, the left hand, the ankles and midfoot bilaterally, both knees. July 04, 2023 lumbar spine MRI: IMPRESSION: Multiple osseous metastatic lesions of the lumbar spine and pelvis. Increased size of large right L3 transverse process metastasis with large extraosseous soft tissue component invading the right paraspinal soft tissues, right neuroforamina, and right spinal canal. Multilevel degenerative disc disease as above. July 04, 2023 pelvic MRI: IMPRESSION: Multiple metastatic lesions of the lower lumbar spine, left sacrum, right iliac, and left proximal femur mildly progressed from prior CT. January 19, 2024 bone scan: IMPRESSION: 1. The increase in tracer uptake defined in the third lumbar vertebra involving the right transverse process, the left acetabulum, the left posterior 10th and left anterior fourth ribs, the left proximal clavicle are commensurate with probable skeletal metastatic disease. 2. Degenerative changes are defined in the bilateral midfoot, both knee articulations, the shoulders bilaterally and upper cervical spine. 3. Overall compared to the previous whole body bone scintigraphy study dated 06/24/2023, there is apparent progression of skeletal metastatic disease. March 31, 2024 CT chest abdomen and pelvis: IMPRESSION: Multiple metastatic lesions in the thoracic, lumbar spine and pelvic bones not significantly changed since the previous study. No new metastatic lesions are seen. There is no evidence of pathologic fractures. May 25, 2024 lumbar spine MRI: IMPRESSION: 1. Diffuse osseous metastatic burden to the visualized thoracolumbar spine most conspicuous at the T12 vertebral body, posterior elements of L2 and L3 on the right, L4 vertebral body as well as the right iliacwing, progressive in the interval. 2. Heterogeneous mass arising from the transverse process arising from the L3 transverse process eccentric towards the right, as described 3. Multilevel spondylotic changes, without significant canal stenosis. There ismoderate neural foraminal stenosis at the L3-4 level on the right. May 25, 2024 pelvic MRI: IMPRESSION: Multifocal bony metastasis with corresponding enhancement, including however notlimited to, the transverse process of L3 on the right, L4 vertebral body, right iliac wing, bilateral sacral ala and left femoral head, with measurements provided above. May 28, 2024 bone scan: IMPRESSION: Interval worsening of osseous metastatic disease is seen within the left clavicle, ribs, and spine.Possible also worsening at the left acromion (versus asymmetric worsening degenerative changes). August 25, 2024 bone scan: IMPRESSION: Worsening metastatic disease. Radiation Treatment History: 1) 12/07/2020? 01/31/2021: Completed adjuvant radiation therapy consisting of 4500cGy delivered in 25fractions to the prostate bed and pelvis followed by boost consisting of 2520 cGy delivered in 14 fractions to the prostate bed.? This brought the total dose delivered to the prostate bed 2 7020 cGy in 39 fractions. 2) From 10/03/2021 ? 10/12/2021: Completed SBRT consisting of 3000 cGy in 5 fractions to the presacraladenopathy (4000 cGy to GTV) 3) From 09/25/2021 ? 10/22/2021: received 4000 cGy delivered to the elective periaortic region with asimultaneous integrated boost of 5500 cGy delivered to the concerning lymph nodes. 4) from 08/07/2023 - 08/14/2023: Received 2000 cGy delivered in 5 fractions to theL2-L3 disease including right paraspinal muscular mass and also 2000 cGy in 5 fractions delivered to the left proximal femur metastasis. 5) from 08/26/2024 - 09/01/2024: Received 2000 cGy delivered in 6 fractions to T12 and left shoulder. Systemic treatment summary: LHRH agonist started 2020?ongoing Xtandi added to LHRH agonist May 2022; partial remission then progression by May 2023 Taxotere August 31?December 14 (6 cycles) 2023 Nubeqa (darolutamide) August -February, [place] then progression Zytiga prednisone February 2024-April 2024 progressive disease. Apalutamide May?July 2024 progressive disease. Interval History Cholecystectomy October 26, 2024 [facility] Medical History Cancer Ambulates with cane Former smoker Chronic cough History of Holter monitoring Anxiety Hoarseness of voice Bilateral lower extremity edema Encounter for chemotherapy management History of steroid therapy Arthritis Gastric reflux Patient uses snuff Shortness of breath on exertion History of pain when walking History of edema History of atrial fibrillation Encounter for education Metastasis to bone Regional lymph node metastasis present Rising PSA following treatment for malignant neoplasm of prostate Prostate cancer metastatic to intraabdominal lymph node Edema History of COVID-19 Wears hearing aid Wears contact lenses Alcohol use DVT (deep venous thrombosis) Back pain Injury of head and neck Migraine headache History of echocardiogram History of stress test Cardiology follow-up encounter Hypertension Prostate cancer Acute on chronic diastolic (congestive) heart failure Paroxysmal supraventricular tachycardia Asthma Paroxysmal atrial flutter (08/18/18) Intermittent palpitations Obesity Surgical History S/P laparoscopic cholecystectomy History of surgery History of cardiac catheterization Hx of cystoscopy History of prostatectomy (07/05/20) History of amputation of finger of right hand History of left inguinal hernia repair History of bilateral inguinal hernia repair History of arthroscopy of left knee Family History Mother CAD (coronary artery disease) Kidney disease Father Heart disease CHF Lung cancer Uncle Myocardial infarction Paternal from [place] age 38 Social History household members: spouse current occupational status: employed Smoking Status: Former smoker Smokeless tobacco user: chewing tobacco and other alcohol intake: current alcohol intake frequency: a few times a week Alcohol type: beer details: 12 pack or more in a week substance use type: does not use caffeine: No ROS Constitutional Constitutional: Reports systems reviewed and no addt'l complaints, except as documented, fatigue, weight loss and other; Denies anorexia or fever(s) Eyes Eyes: Reports systems reviewed and no addt'l complaints, except as documented ENT HEENT: Reports systems reviewed and no addt'l complaints, except as documented; Denies mouth lesions Cardiovascular Cardiovascular: Reports systems reviewed and no addt'l complaints, except as documented; Denies chest pain with activity or edema Respiratory/Chest Respiratory/Chest: Reports systems reviewed and no addt'l complaints, except as documented; Denies cough or dyspnea Gastrointestinal Gastrointestinal: Reports systems reviewed and no addt'l complaints, except as documented, as per HPI and constipation; Denies abdominal pain, change in bowel habits, hematochezia or melena Genitourinary Genitourinary: Reports systems reviewed and no addt'l complaints, except as documented; Denies hematuria Musculoskeletal Musculoskeletal: Reports systems reviewed and no addt'l complaints, except as documented, back painand other Details: Pain has significantly improved following August 2024 radiation now down to Tylenolas needed ; Denies arthralgias, muscle spasms or muscle weakness Integumentary Integumentary: Reports systems reviewed and no addt'l complaints, except as documented; Denies new lesions Neurologic Neurologic: Reports systems reviewed and no addt'l complaints, except as documented; Denies focal weakness or paresthesias Psychiatric Psychiatric: Reports systems reviewed and no addt'l complaints, except as documented Endocrine Endocrinology: Reports systems reviewed and no addt'l complaints, except as documented Hematologic/Lymphatic Hematologic/Lymphatic: Reports systems reviewed and no addt'l complaints, exceptas documented Allergic/Immunologic Allergic/Immunologic: Reports systems reviewed and no addt'l complaints, except as documented Intake Vital Signs 10/19/24 16:25 11/04/24 10:06 11/04/24 10:11 Height 5 ft 11 in 5 ft 11 in 5 ft 11 in Weight: 99.393 kg BMI 30.5 BP 134/89 H Blood Pressure Location Lt brachial Position Sitting Respiration 16 Pulse 75 Pulse Source Monitor Temp 96.7 F L Temperature Source Temporal Artery Pulse Oximetry (%) 93 Oxygen Delivery Method room air Intake Is patient in pain?: No Allergies ciprofloxacin (From Cipro) Allergy (Unknown, Verified 11/04/24 10:10) swelling Medications ?Medication ?Instructions ?Recorded ?Confirmed ?Type albuterol sulfate 90 mcg/actuation 2 puff inhalation Q 6H PRN Asthma 09/07/18 11/04/24 History aerosol inhaler (Ventolin HFA) albuterol sulfate 2.5 mg/3 mL 1.25 mg inhalation Q6H P RN PRN 06/28/20 11/04/24 History (0.083 %) solution for nebulization Asthma montelukast 10 mg tablet 10 mg PO QHS asthma 07/05/20 11/04/24 History calcium carbonate (Calcium 600) 600 mg PO DAILY supple ment 08/15/23 11/04/24 History fluticasone 100 mcg-salmeterol 50 1 inh inhalation Q12 H asthma 10/06/23 11/04/24 History mcg/dose blistr powdr for inhalation (Advair Diskus) omeprazole 20 mg tablet,delayed 20 mg PO QHS gerd 0712/1911/04/24 History release flecainide 100 mg tablet 100 mg PO BID bp #180 TABLET S 08/03/24 11/04/24 Rx leuprolide (3 month) 22.5 mg (3 22.5 mg subcut .q 3 mo nth hormone 08/03/24 11/04/24 History month) subcutaneous syringe (Justino) metoprolol succinate 100 mg 100 mg PO DAILY bp #90 tab s 08/03/24 11/04/24 Rx tablet,extended release 24 hr rivaroxaban 20 mg tablet 20 mg PO QHS BLOOD THINNER # 90 tabs 08/03/24 11/04/24 Rx Held on 10/26/24. Instructions: Resume on 10/28/24. albuterol sulfate 1.25 mg/3 mL 1.25 mg inhalation 4X/D AY PRN PRN 10/11/24 11/04/24 History solution for nebulization shortness of breath or wheez ing tizanidine 4 mg tablet 4 mg PO TID PRN muscle spast icity 10/11/24 11/04/24 History oxycodone 5 mg capsule 5 mg PO Q6H PRN pain 3 days #5 caps 10/12/24 11/04/24 Rx cefdinir 300 mg capsule 300 mg PO BID 10/26/2411/04 History oxycodone 5 mg capsule 5 mg PO Q6H PRN pain 3 days #10 10/26/24 11/04/24 Rx caps methylprednisolone 4 mg tablets in See Rx Instructions PO PER PKG DIR 11/04/24 11/04/24 History a dose pack (Medrol (Daryn)) Central Venous Access Central Venous Access: Yes Port/PICC: Port Laboratory Tests 08/29/20 11/28/20 04/24/21 09:05 10:20 08:30 Total PSA 7.97 H 1.29 0.16 08/08/21 11/09/21 02/12/22 09:32 06:48 09:51 Total PSA 0.34 0.29 0.39 05/24/22 08/28/22 12/05/22 10:50 07:24 15:42 Total PSA 1.86 0.18 0.41 03/06/23 03/31/23 04/30/23 13:04 16:34 13:18 Total PSA 1.35 1.66 2.06 06/12/23 07/01/23 08/11/23 09:37 10:28 09:55 Total PSA 3.22 3.75 4.12 H 09/01/23 09/23/23 10/13/23 08:52 08:00 08:36 Total PSA 3.40 0.84 0.29 11/03/23 11/24/23 12/15/23 08:00 10:37 11:00 Total PSA 0.20 0.21 0.28 01/29/24 03/11/24 04/15/24 11:42 12:44 11:35 Total PSA 0.44 1.35 1.96 05/24/24 07/01/24 08/12/24 09:37 14:29 13:43 Total PSA 3.76 2.85 4.48 H 09/08/24 10/19/24 11/04/24 12:56 15:30 09:31 Total PSA 4.97 H 6.18 H 11.80 H Exam Physical Exam Narrative ECOG 1 Const alert, oriented x3 and no apparent distress General Appearance: cooperative and comfortable Nutritional Appearance: obese HEENT Face and Sinus: normal facial exam Eyes General Eye: normal appearance of both eyes Neck no lymphadenopathy and no JVD Resp clear to auscultation bilaterally Cardio regular rate and regular rhythm Jugular Venous Distention: Negative for JVD GI soft to palpation, non-tender and non-distended; Negative for hepatosplenomegaly Back/Spine no thoracic nor lumbar tenderness Extremity General Extremity: Negative for clubbing, cyanosis or edema Skin no rashes or lesions noted Neuro oriented x3, CN's II-XII intact bilaterally, moves all extremities and no focal motor deficits Coordination / Balance: [id number] test normal Speech: speech normal Gait (Neuro): normal gait Psych mental status grossly normal Coding Level of Care Code Off vis,est,level 4 Exam Problem Focused Diagnoses Prostate cancer C61 Regional lymph node metastasis present C77.9 Metastasis to bone C79.51 Assessment and Plan Assessment and Plan (1) Prostate cancer: Status: Chronic (2) Regional lymph node metastasis present: Status: Chronic (3) Metastasis to bone: Status: Chronic Plan 63-year-old male with castrate resistant metastatic prostate cancer; Rena Lara 10 status post radicalprostatectomy in June 2020, adjuvant pelvic radiation November - January 2021, additional radiation therapy to presacral and periaortic lymph nodes August - September 2021. He has received hormonal therapy with LHRH agonist (Eligard) since 2020, with Xtandi added in May 2022 after documentation of hormone refractoriness and metastasis to bone based on PSMA PET in May 2022. July 2022 next generation sequence and genetic testing liquid at [facility]: No mutations identified. He ha6 a rising PSA February 2023 which prompted medical oncology consultation at [facility]. Repeat imaging with bone scan and CT scans of the chest abdomen and pelvis, though comparison to PET/CT is somewhat limited, shows overall better metastaticdisease than when he started combined antiandrogen therapy in May 2022. The rising PSA signaling early relapse of the disease after the imp rovement and he remained symptom-free and no measurable disease on imaging. May 2023 reported new onset of low back pain and right-sided sciatica fora month or so, painimproved after medical treatment prescribed by pain management but only temporarily and therefore he received further palliative radiation to L2-L3 and left proximal fever in July 2023. Started systemic therapy with LHRH agonist plus Nubeqa (darolutamide) August 2023 in addition to docetaxel (6 cycles August - November 2023) based on the ARASENS trial . Main toxicities encountered where cytopenias requiring growth factor support during chemotherapy salt and water retention attributed to Taxotere that required use of diuretics. He had a favorable response with PSA level down under 1. Bone scan (between May then December 2023) shows persistent, some improvement in the lumbar and left pelvis and new uptake in the ribs and clavicle. With continued upward trend in PSA and development of new bone lesions on bone scan of December 2023 patient androgen blockade treatment was changed to Zytigawith prednisone and to continue with LHRH agonist. However by April 2024 he continued to have relentlessly rising PSA and furtherworsening of bone scan. Hormonal therapy was switched to apalutamide (Erleada) May 2024. However, by July 2024 he is having increasing back pain and his PSA has gone up. At this time he has a castrate refractory metastatic prostate cancer. Chronic comorbid conditions: Asthma, paroxysmal atrial flutter on chronic anticoagulation. Plan: Based on NCCN guidelines and up-to-date review of systemic therapy of treatment of metastatic(M1) prostate cancer; 1. For castrate resistant metastatic prostate cancer. Refered to [facility] for radioligand therapy ( lutetium 177, Pluvicto). 2. Continue LHRH agonist therapy long-term. 3. Continue bone supportive therapy with zoledronic acid every 12 weeks. 4. He is under care of pain management and was refered to palliative. Patient was seen , impression and plan discussed. Jignesh Purcell MD [employer], [facility] Divisions of Medical Oncology & Hematology Department of Internal Medicine [place] [id number] This note was generated using a voice recognition system software. Although itwas reviewed by the author prior to finalization, it may still contain incorrectwords, spelling, and punctuation that were not noted when reviewing prior to saving. If a clinically significant typo or inaccurately typed phrase is noted, please notify the author. 11/04/24 1032 eze MUNIZ> Date _ Jignesh Purcell MD Cosigner Signature: Date (if applicable) CC: Dr. Carlitos Brewer, DO ~ [facility]07-10-2025 Progress note Author Jignesh Purcell [facility] Note Date/Time November 04, 2024 10:3 2am [place] [address] OFFICE VISIT Date of Service: 11/04/24 1005 MR#: [id number] Acct: [id number] Name: DANNIE EDMONDSON Rep #: [id number] : 1960 From: Jignesh haro MD Age/Sex: 63/M Location: [facility] Status: Signed HPI Subjective Date of Service 11/04/24 Chief Complaint Metastatic prostate cancer History of Present Illness 63-year-old male with metastatic castrate resistant prostate cancer seen in consultation February 2023 for further management. April 2020: Had an elevated screening PSA of 17, underwent TRUS guided prostate biopsy that showed an adenocarcinoma with the highest Rena Lara score being 10 (5+5). Staging showed no evidence for metastatic disease. June 2020: Patient underwent radical prostatectomy and lymph node dissection.? Pathology demonstrated Rena Lara 5+5 adenocarcinoma involving 85% of the gland, multifocal extraprostatic extension is identified involving the right, left posterior lateral and seminal vesicles.? Seminal vesicle invasion ispresent.? Perineural invasion is present.? Margin focally positive (2 mm right lateral margin), 2 lymph nodes were obtained and did not contain metastatic disease.? pT3b pN0 September 2020 due to persistently elevated residual PSA, patient completed PET scanwhich demonstrated increased radiopharmaceutical concentration noted in the lower pelvis in the region of the prostate bed, as well as the upper midline andright mid pelvic mesentery corresponding to soft tissue nodularity in his fulfills quantitative criteria for viable neoplasm. November - January 2021 underwent adjuvant radiation therapy consisting of 4500 cGy delivered in 25 fractions to the prostate bed and pelvis followed by boost consisting of 2520 cGy delivered in 14 fractions to the prostate bed.? This brought the total dose delivered to the prostate bed to 7020 cGy in 39 fractions. July 2021 PSMA PET demonstrated focal increased localized activity involving the retroperitoneum and presacral space.? Anterior to the sacrum there is an 8 mm nodule with abnormal activity with an SUV of 44.1.? There is a 9 mm lymph node between the lower IVC and aorta with an SUV of 43.6.? There is a lymph nodeinferior to the left renal vein with an SUV of 23.5.? No other evidence of disease appreciated. August?September 2021 received SBRT consisting of 3000 cGy in 5 fractions to the presacral adenopathy (4000 cGy to GTV) And 4000 cGy delivered to the elective periaortic region with a simultaneous integrated boost of 5500 cGy delivered to the concerning lymph nodes. May 2022: Due to a rising PSMA PET CT: SKELETAL: Enhanced radiopharmaceutical is defined in the left proximal femur, the third and fifth lumbar vertebrae, the sacrum, the fourth thoracic vertebra, the left posterior second rib, the spinous process of the lower cervical spine, with a calculated maximal standard uptake value IMPRESSION: 1. ABNORMAL EXAMINATION INDICATIVE OF MALIGNANT VIABLE NEOPLASM. 2. Increased radiopharmaceutical concentration encountered in the lower midline pelvic mesentery fulfills quantitative criteria for viable neoplasm. (Eiyasir et al., Journal of Nuclear Medicine 59:469, 2018). 3. Enhanced tracer uptake noted in the osseous skeletal structures fulfills quantitative criteria for viable osseous neoplasia. 4. The increase in radiotracer uptake visualized the left anterior neck corresponding to soft tissue with fatty hilus is most consistent with reactive adenopathy. 5. Increased radiopharmaceutical distribution noted in the abdominal retroperitoneum in several locations does not fulfill quantitative criteria for malignant infiltration. July 2022 next generation sequence and genetic testing liquid at [facility]: No mutations identified. March 27, 2023 bone scan: IMPRESSION: 1. The increase in radiopharmaceutical defined in the fourth lumbar vertebra is most consistent with skeletal metastatic disease. Plain film radiography correlation is recommended. 2. Degenerative arthritis is defined in the bilateral shoulders, right and left knees, the midfoot bilaterally and the thoracic spine. March 28, 2023 chest abdomen and pelvis CT: IMPRESSION: Small hepatic cysts. Heterogeneous appearance of the lumbar vertebrae suggestive of possible metastasis. The patient is status post prostatectomy. June 24, 2023 bone scan: IMPRESSION: 1. The increase in tracer uptake redefined and newly apparent in the fourth lumbar vertebra and left acetabulum and left sacroiliac joint are consistent with isolated osteoblastic turnover attributed to the patient''s known diagnosis of primary prostate carcinoma. 2. Degenerative arthritis is defined in the bilateral shoulder and wrist articulations, the left hand, the ankles and midfoot bilaterally, both knees. July 04, 2023 lumbar spine MRI: IMPRESSION: Multiple osseous metastatic lesions of the lumbar spine and pelvis. Increased size of large right L3 transverse process metastasis with large extraosseous soft tissue component invading the right paraspinal soft tissues, right neuroforamina, and right spinal canal. Multilevel degenerative disc disease as above. July 04, 2023 pelvic MRI: IMPRESSION: Multiple metastatic lesions of the lower lumbar spine, left sacrum, right iliac, and left proximal femur mildly progressed from prior CT. January 19, 2024 bone scan: IMPRESSION: 1. The increase in tracer uptake defined in the third lumbar vertebra involving the right transverse process, the left acetabulum, the left posterior 10th and left anterior fourth ribs, the left proximal clavicle are commensurate with probable skeletal metastatic disease. 2. Degenerative changes are defined in the bilateral midfoot, both knee articulations, the shoulders bilaterally and upper cervical spine. 3. Overall compared to the previous whole body bone scintigraphy study dated 06/24/2023, there is apparent progression of skeletal metastatic disease. March 31, 2024 CT chest abdomen and pelvis: IMPRESSION: Multiple metastatic lesions in the thoracic, lumbar spine and pelvic bones not significantly changed since the previous study. No new metastatic lesions are seen. There is no evidence of pathologic fractures. May 25, 2024 lumbar spine MRI: IMPRESSION: 1. Diffuse osseous metastatic burden to the visualized thoracolumbar spine most conspicuous at the T12 vertebral body, posterior elements of L2 and L3 on the right, L4 vertebral body as well as the right iliacwing, progressive in the interval. 2. Heterogeneous mass arising from the transverse process arising from the L3 transverse process eccentric towards the right, as described 3. Multilevel spondylotic changes, without significant canal stenosis. There ismoderate neural foraminal stenosis at the L3-4 level on the right. May 25, 2024 pelvic MRI: IMPRESSION: Multifocal bony metastasis with corresponding enhancement, including however notlimited to, the transverse process of L3 on the right, L4 vertebral body, right iliac wing, bilateral sacral ala and left femoral head, with measurements provided above. May 28, 2024 bone scan: IMPRESSION: Interval worsening of osseous metastatic disease is seen within the left clavicle, ribs, and spine. Possible also worsening at the left acromion (versus asymmetric worsening degenerative changes). August 25, 2024 bone scan: IMPRESSION: Worsening metastatic disease. Radiation Treatment History: 1) 12/07/2020? 01/31/2021: Completed adjuvant radiation therapy consisting of 4500cGy delivered in 25 fractions to the prostate bed and pelvis followed by boost consisting of 2520 cGy delivered in 14 fractions to the prostate bed.? This brought the total dose delivered to the prostate bed 2 7020 cGy in 39 fractions. 2) From 10/03/2021 ? 10/12/2021: Completed SBRT consisting of 3000 cGy in 5 fractions to the presacral adenopathy (4000 cGy to GTV) 3) From 09/25/2021 ? 10/22/2021: received 4000 cGy delivered to the elective periaortic region with a simultaneous integrated boost of 5500 cGy delivered to the concerning lymph nodes. 4) from 08/07/2023 - 08/14/2023: Received 2000 cGy delivered in 5 fractions to theL2-L3 disease including right paraspinal muscular mass and also 2000 cGy in 5 fractions delivered to the left proximal femur metastasis. 5) from 08/26/2024 - 09/01/2024: Received 2000 cGy delivered in 6 fractions to T12 and left shoulder. Systemic treatment summary: LHRH agonist started 2020?ongoing Xtandi added to LHRH agonist May 2022; partial remission then progression by May 2023 Taxotere August 31?December 14 (6 cycles) 2023 Nubeqa (darolutamide) August -February, [place] then progression Zytiga prednisone February 2024-April 2024 progressive disease. Apalutamide May?July 2024 progressive disease. Interval History Cholecystectomy October 26, 2024 [facility] Medical History Cancer Ambulates with cane Former smoker Chronic cough History of Holter monitoring Anxiety Hoarseness of voice Bilateral lower extremity edema Encounter for chemotherapy management History of steroid therapy Arthritis Gastric reflux Patient uses snuff Shortness of breath on exertion History of pain when walking History of edema History of atrial fibrillation Encounter for education Metastasis to bone Regional lymph node metastasis present Rising PSA following treatment for malignant neoplasm of prostate Prostate cancer metastatic to intraabdominal lymph node Edema History of COVID-19 Wears hearing aid Wears contact lenses Alcohol use DVT (deep venous thrombosis) Back pain Injury of head and neck Migraine headache History of echocardiogram History of stress test Cardiology follow-up encounter Hypertension Prostate cancer Acute on chronic diastolic (congestive) heart failure Paroxysmal supraventricular tachycardia Asthma Paroxysmal atrial flutter (08/18/18) Intermittent palpitations Obesity Surgical History S/P laparoscopic cholecystectomy History of surgery History of cardiac catheterization Hx of cystoscopy History of prostatectomy (07/05/20) History of amputation of finger of right hand History of left inguinal hernia repair History of bilateral inguinal hernia repair History of arthroscopy of left knee Family History Mother CAD (coronary artery disease) Kidney disease Father Heart disease CHF Lung cancer Uncle Myocardial infarction Paternal from [place] age 38 Social History household members: spouse current occupational status: employed Smoking Status: Former smoker Smokeless tobacco user: chewing tobacco and other alcohol intake: current alcohol intake frequency: a few times a week Alcohol type: beer details: 12 pack or more in a week substance use type: does not use caffeine: No ROS Constitutional Constitutional: Reports systems reviewed and no addt'l complaints, except as documented, fatigue, weight loss and other; Denies anorexia or fever(s) Eyes Eyes: Reports systems reviewed and no addt'l complaints, except as documented ENT HEENT: Reports systems reviewed and no addt'l complaints, except as documented; Denies mouth lesions Cardiovascular Cardiovascular: Reports systems reviewed and no addt'l complaints, except as documented; Denies chest pain with activity or edema Respiratory/Chest Respiratory/Chest: Reports systems reviewed and no addt'l complaints, except as documented; Denies cough or dyspnea Gastrointestinal Gastrointestinal: Reports systems reviewed and no addt'l complaints, except as documented, as per HPI and constipation; Denies abdominal pain, change in bowel habits, hematochezia or melena Genitourinary Genitourinary: Reports systems reviewed and no addt'l complaints, except as documented; Denies hematuria Musculoskeletal Musculoskeletal: Reports systems reviewed and no addt'l complaints, except as documented, back pain and other Details: Pain has significantly improved following August 2024 radiation now down to Tylenol as needed ; Denies arthralgias, muscle spasms or muscle weakness Integumentary Integumentary: Reports systems reviewed and no addt'l complaints, except as documented; Denies new lesions Neurologic Neurologic: Reports systems reviewed and no addt'l complaints, except as documented; Denies focal weakness or paresthesias Psychiatric Psychiatric: Reports systems reviewed and no addt'l complaints, except as documented Endocrine Endocrinology: Reports systems reviewed and no addt'l complaints, except as documented Hematologic/Lymphatic Hematologic/Lymphatic: Reports systems reviewed and no addt'l complaints, exceptas documented Allergic/Immunologic Allergic/Immunologic: Reports systems reviewed and no addt'l complaints, except as documented Intake Vital Signs 10/19/24 16:25 11/04/24 10:06 11/04/24 10:11 Height 5 ft 11 in 5 ft 11 in 5 ft 11 in Weight: 99.393 kg BMI 30.5 BP 134/89 H Blood Pressure Location Lt brachial Position Sitting Respiration 16 Pulse 75 Pulse Source Monitor Temp 96.7 F L Temperature Source Temporal Artery Pulse Oximetry (%) 93 Oxygen Delivery Method room air Intake Is patient in pain?: No Allergies ciprofloxacin (From Cipro) Allergy (Unknown, Verified 11/04/24 10:10) swelling Medications ?Medication ?Instructions ?Recorded ?Confirmed ?Type albuterol sulfate 90 mcg/actuation 2 puff inhalation Q 6H PRN Asthma 09/07/18 11/04/24 History aerosol inhaler (Ventolin HFA) albuterol sulfate 2.5 mg/3 mL 1.25 mg inhalation Q6H P RN PRN 06/28/20 11/04/24 History (0.083 %) solution for nebulization Asthma montelukast 10 mg tablet 10 mg PO QHS asthma 07/05/20 11/04/24 History calcium carbonate (Calcium 600) 600 mg PO DAILY supple ment 08/15/23 11/04/24 History fluticasone 100 mcg-salmeterol 50 1 inh inhalation Q12 H asthma 10/06/23 11/04/24 History mcg/dose blistr powdr for inhalation (Advair Diskus) omeprazole 20 mg tablet,delayed 20 mg PO QHS gerd 12/1911/04/24 History release flecainide 100 mg tablet 100 mg PO BID bp #180 TABLET S 08/03/24 11/04/24 Rx leuprolide (3 month) 22.5 mg (3 22.5 mg subcut .q 3 mo nth hormone 08/03/24 11/04/24 History month) subcutaneous syringe (Mompery) metoprolol succinate 100 mg 100 mg PO DAILY bp #90 tab s 08/03/24 11/04/24 Rx tablet,extended release 24 hr rivaroxaban 20 mg tablet 20 mg PO QHS BLOOD THINNER # 90 tabs 08/03/24 11/04/24 Rx Held on 10/26/24. Instructions: Resume on 10/28/24. albuterol sulfate 1.25 mg/3 mL 1.25 mg inhalation 4X/D AY PRN PRN 10/11/24 11/04/24 History solution for nebulization shortness of breath or wheez ing tizanidine 4 mg tablet 4 mg PO TID PRN muscle spast icity 10/11/24 11/04/24 History oxycodone 5 mg capsule 5 mg PO Q6H PRN pain 3 days #5 caps 10/12/24 11/04/24 Rx cefdinir 300 mg capsule 300 mg PO BID 10/26/2411/04 History oxycodone 5 mg capsule 5 mg PO Q6H PRN pain 3 days #10 10/26/24 11/04/24 Rx caps methylprednisolone 4 mg tablets in See Rx Instructions PO PER PKG DIR 11/04/24 11/04/24 History a dose pack (Medrol (Daryn)) Central Venous Access Central Venous Access: Yes Port/PICC: Port Laboratory Tests 08/29/20 11/28/20 04/24/21 09:05 10:20 08:30 Total PSA 7.97 H 1.29 0.16 08/08/21 11/09/21 02/12/22 09:32 06:48 09:51 Total PSA 0.34 0.29 0.39 05/24/22 08/28/22 12/05/22 10:50 07:24 15:42 Total PSA 1.86 0.18 0.41 03/06/23 03/31/23 04/30/23 13:04 16:34 13:18 Total PSA 1.35 1.66 2.06 06/12/23 07/01/23 08/11/23 09:37 10:28 09:55 Total PSA 3.22 3.75 4.12 H 09/01/23 09/23/23 10/13/23 08:52 08:00 08:36 Total PSA 3.40 0.84 0.29 11/03/23 11/24/23 12/15/23 08:00 10:37 11:00 Total PSA 0.20 0.21 0.28 01/29/24 03/11/24 04/15/24 11:42 12:44 11:35 Total PSA 0.44 1.35 1.96 05/24/24 07/01/24 08/12/24 09:37 14:29 13:43 Total PSA 3.76 2.85 4.48 H 09/08/24 10/19/24 11/04/24 12:56 15:30 09:31 Total PSA 4.97 H 6.18 H 11.80 H Exam Physical Exam Narrative ECOG 1 Const alert, oriented x3 and no apparent distress General Appearance: cooperative and comfortable Nutritional Appearance: obese HEENT Face and Sinus: normal facial exam Eyes General Eye: normal appearance of both eyes Neck no lymphadenopathy and no JVD Resp clear to auscultation bilaterally Cardio regular rate and regular rhythm Jugular Venous Distention: Negative for JVD GI soft to palpation, non-tender and non-distended; Negative for hepatosplenomegaly Back/Spine no thoracic nor lumbar tenderness Extremity General Extremity: Negative for clubbing, cyanosis or edema Skin no rashes or lesions noted Neuro oriented x3, CN's II-XII intact bilaterally, moves all extremities and no focal motor deficits Coordination / Balance: [id number] test normal Speech: speech normal Gait (Neuro): normal gait Psych mental status grossly normal Coding Level of Care Code Off vis,est,level 4 Exam Problem Focused Diagnoses Prostate cancer C61 Regional lymph node metastasis present C77.9 Metastasis to bone C79.51 Assessment and Plan Assessment and Plan (1) Prostate cancer: Status: Chronic (2) Regional lymph node metastasis present: Status: Chronic (3) Metastasis to bone: Status: Chronic Plan 63-year-old male with castrate resistant metastatic prostate cancer; Rena Lara 10 status post radical prostatectomy in June 2020, adjuvant pelvic radiation November - January 2021, additional radiation therapy to presacral and periaortic lymph nodes August - September 2021. He has received hormonal therapy with LHRH agonist (Eligard) since 2020, with Xtandi added in May 2022 after documentation of hormone refractoriness and metastasis to bone based on PSMA PET in May 2022. July 2022 next generation sequence and genetic testing liquid at [facility]: No mutations identified. He ha6 a rising PSA February 2023 which prompted medical oncology consultation at [facility]. Repeat imaging with bone scan and CT scans of the chest abdomen and pelvis, though comparison to PET/CT is somewhat limited, shows overall better metastaticdisease than when he started combined antiandrogen therapy in May 2022. The rising PSA signaling early relapse of the disease after the improvement and he remained symptom-free and no measurable disease on imaging. May 2023 reported new onset of low back pain and right-sided sciatica fora month or so, pain improved after medical treatment prescribed by pain management but only temporarily and therefore he received further palliative radiation to L2-L3 and left proximal fever in July 2023. Started systemic therapy with LHRH agonist plus Nubeqa (darolutamide) August 2023 in addition to docetaxel (6 cycles August - November 2023) based on the ARASENS trial . Main toxicities encountered where cytopenias requiring growth factor support during chemotherapy salt and water retention attributed to Taxotere that required use of diuretics. He had a favorable response with PSA level down under 1. Bone scan (between May then December 2023) shows persistent, some improvement in the lumbar and left pelvis and new uptake in the ribs and clavicle. With continued upward trend in PSA and development of new bone lesions on bone scan of December 2023 patient androgen blockade treatment was changed to Zytigawith prednisone and to continue with LHRH agonist. However by April 2024 he continued to have relentlessly rising PSA and furtherworsening of bone scan. Hormonal therapy was switched to apalutamide (Erleada) May 2024. However, by July 2024 he is having increasing back pain and his PSA has gone up. At this time he has a castrate refractory metastatic prostate cancer. Chronic comorbid conditions: Asthma, paroxysmal atrial flutter on chronic anticoagulation. Plan: Based on NCCN guidelines and up-to-date review of systemic therapy of treatment of metastatic (M1) prostate cancer; 1. For castrate resistant metastatic prostate cancer. Refered to [facility] for radioligand therapy ( lutetium 177, Pluvicto). 2. Continue LHRH agonist therapy long-term. 3. Continue bone supportive therapy with zoledronic acid every 12 weeks. 4. He is under care of pain management and was refered to palliative. Patient was seen , impression and plan discussed. Jignesh Purcell MD [employer], [facility] Divisions of Medical Oncology & Hematology Department of Internal Medicine [place] [id number] This note was generated using a voice recognition system software. Although itwas reviewed by the author prior to finalization, it may still contain incorrectwords, spelling, and punctuation that were not noted when reviewing prior to saving. If a clinically significant typo or inaccurately typed phrase is noted, please notify the author. 11/04/24 1032 <Electronically signed by Jignesh loo MD> Date _ Jignesh Purcell MD Cosigner Signature: Date (if applicable) CC: Dr. Carlitos Brewer, DO ~ [employer] Work Phone: [phone] History of Present illness Narrative* Yan Scherer MD, PhD - 11/01/2024 11:00 AM EDT Images from the original note were not included. Referring provider: Jignesh Purcell MB* Consultation reason: Malignant neoplasm of prostate, Secondary malignant neoplasm of bone Thank you very much for requesting a Medical oncology consultation for the patient Diagnosis, Staging and Date history Recurrent mCRPC, Stage IV M1 07/05/2020: RPLND & Prostatectomy: Chuck 9 (5+4), 70% involvement, EPE, seminal vesicle invasion, [id number] 06/01/2020: MRI: PIRADS 5 lesion, seminal vesicle involvement 05/08/2020: Prostate biopsy: Chuck 10 (5+5) adenocarcinoma 03/2020: Presented with LUTS, PSA 14.03, abnormal DANNY Pertinent oncologic and treatment History beside iHPI 11/01/24 Ordering new PSMA Pet before ordering Pluvicto. NGS and Guardant will be ordered 11/01/24 Discussed the [facility] [id number]: Pluvicto + ONC-392 in mCRPC who've progressed on AR pathway inhibitors (PRESERVE-006) BUT NOT candidate due to poor ECOG 10/2024: ADT ongoing since 12/2020 (Eligard 22.5 mg as of 06/04/2022 ) - present 09/2024: Bone scan:Multifocal axial and appendicular bony metastatic disease, possibly increased asbest compared to prior outside institution bone scan from 08/25/2024. 08/2024: PSA chad to 4.97 Palliative XRT to L shoulder & T12 -07/2024: MRI & Bone scans showed progressive osseous metastases 02/2024-04/2024: Abiraterone/Prednisone : Darolutamide -11/2023: Docetaxel (6 cycles) 07/2023: Palliative XRT to L2-L3 05/2023-07/2024: Apalutamide 07/2022: Xtandi restarted 05/2022: PET PSMA: Bone metastases Xtandi briefly initiated 2022 PSA Trend: Dropped to 0.2, then chad to 4.97 by 08/2024-09/2021: SBRT to presacral/periaortic nodes 07/2021: PET: Retroperitoneal/presacral LN activity; Bone scan negative 2021 PSA Trend: Chad from 0.16 ? 1.89 2021 Treatments: SBRT to presacral lymph nodes Enzalutamide Apalutamide Palliative XRT to L2-L3 Docetaxel x6 cycles Darolutamide Abiraterone/Prednisone Palliative XRT to L shoulder & T12 : Salvage RT to prostate bed/pelvis 12/2020: Initiation of ADT 09/2020: CT & PET: Prostate bed recurrence, pelvic nodules, supraclavicular uptake 2020 PSA Trend: Fluctuated from 0.2 ? 7.97 07/05/2020: RPLND & Prostatectomy: Rena Lara 9 (5+4), 70% involvement, EPE, seminal vesicle invasion, [id number] 06/01/2020: MRI: PIRADS 5 lesion, seminal vesicle involvement 05/08/2020: Prostate biopsy: Chuck 10 (5+5) adenocarcinoma 03/2020: Presented with LUTS, PSA 14.03, abnormal DANNY Genomic profile Molecular & Genetic Testing 07/05/2020: Tumor profiling: PTEN loss, p53+, RB1 weak, MSI-L, TET1/TP53 mutations, TMPRSS2/ERG fusion, TMB 1 mut/Mb 08/02/2022: MDA Liquid Biopsy: No CNV, somatic mutations, or fusions ECO Initial HPI Dannie Edmondson is a 63 y.o. male works in [employer] with past medical history of atrialflutter, currently managed with flecainide and rivaroxaban, presents here for 2nd opinion evaluation of mCRPC with osseous metastases. His initial PSA was 14, and Rena Lara score was 5+5=10. Oncologic History: 07/06/2020: Diagnosed with very high-risk prostate adenocarcinoma (pT3bN0, PSA 14.03, Rena Lara 10); underwent radical prostatectomy (RP) with pelvic lymph node dissection (PLND). 08/29/2020: Postoperative PSA remained elevated at 7.97. 10/03/2020: Fluciclovine PET scan showed PET-avid disease in the prostate bed and pelvis. 01/31/2021: Completed salvage radiation therapy (RT) to the prostate bed (70.2 Gy) and pelvis (45 Gy), with ongoing androgen deprivation therapy (ADT) initiated in December 2020. 04/14/2021: PSA dropped to 0.16 but chad again to 0.34 by 08/08/2021. 08/22/2021: PSMA-PET revealed retroperitoneal PET-avid lymph nodes, including a presacral node within the prior radiation field. Underwent dustin irradiation with a plan for 20 fractions (40 Gy to elective nodes, 55 Gy boost to gross disease). Received SBRT to the presacral lymph node (30 Gy to PTV, 40 Gy SIB to GTV). 05/2022: PSMA-PET confirmed bone metastases. 04/2024-07/2024: MRI and bone scans showed progressive osseous metastases. Therapies Received: ADT (ongoing since 12/2020) Enzalutamide Apalutamide Darolutamide Abiraterone with prednisone Docetaxel (6 cycles) Palliative radiation therapy to: L2-L3 spine Left shoulder T12 vertebra 10/05/24 CT C/A/P: Multiple osseous sclerotic lesions are seen scattered within the axial and appendicular skeleton. These sclerotic lesions involving several lumbar and thoracic vertebrae (L1-L5), T12, T8 and T3 vertebral bodies. A large expansile mixed lytic and sclerotic lesion is seen involving the right lateral aspect of L3 vertebra as well as the right transverse process of L3. Mild sclerosis and mild deformity of upper endplate of S1 is also seen. Several smaller sclerotic lesions are seen involving the pelvic bones, bilateral ribs, manubrium, left clavicle and left scapula. Recent Evaluation (10/06/2024): by Davy Alcocer M.D. from [facility] Reviewed updated imaging showing progressive bone metastases. Discussed prognosis and next-line treatment options for refractory mCRPC, [id number] Cabazitaxel [place]-223 11/01/24 [facility] visit: The patient presents for ongoing management of adenocarcinoma of the prostate and associated complications, accompanied by their spouse and son. The patient was diagnosed with prostate cancer in 2019, confirmed by biopsy with a Rena Lara score of 5+5 and an initial prostate-specific antigen (PSA) level of 14. The condition has been managed by Dr. Ortiz, with consultationsfrom Dr. Alcocer in 2022 and 2023, who confirmed the treatment plan and suggested participation terri clinical trial involving Pluvicto and chemotherapy. However, the clinical trial was postponed dueto the need for gallbladder surgery. The patient's treatment history includes radiation therapy, chemotherapy, hormone therapy, and surgical intervention. Post-surgical PSA levels fluctuated, necessitating additional radiation and hormone therapy. Rising PSA levels led to a PSMA PET scan, which revealed bone metastases. Current medications include Xtandi, Nubeqa, Orgovyx, and chemotherapy. The [facility] has a scheduled appointment with Dr. Ortiz on 11/04/2024. Presently, the patient is receivingEligard and bone-strengthening medication, along with bone marrow booster injections. The patient reports experiencing dyspnea, initially attributed to a gallbladder infection by coremaker experimental Dr. Zuleta. The patient has been using a nebulizer four times daily for the past week. There is a history of asthma since age 7, with previous use of Medrol Dosepak. The patient underwent cholecystectomy on 10/26/2024 and continues to experience postoperative pain. The patient was recently treated for pneumonia with a course of antibiotics, which was completed yesterday morning. SOCIAL HISTORY - Do not smoke - Do not drink excessively FAMILY HISTORY - Mother had breast cancer - Father had lung cancer at age 60 Assessment and Plan: Dannie Edmondson is a 63 y.o. male mCRPC to bone (Rena Lara 5+4=9, PSA 16) and [facility] molecular features (PTEN loss, TP53+). Treatment history includes: RP + PLND (2020), salvage XRT + ADT () Castration-resistant disease since 09/2021 Palliative bone XRT, enzalutamide (until 05/2023) Apalutamide (-07/2023), docetaxel 6 () Darolutamide (), abiraterone (02/2024-04/2024) Recent imaging: Progressive bone metastases Current PSA: 9.6 # mCRPC, Stage IV M1 POD and ADT. Multiple ARPIs and Docetaxel # 07/05/2020: RPLND & Prostatectomy: Chuck 9 (5+4), 70% involvement, EPE, seminal vesicle invasion, [id number] Please see the details of disease in HPI section 11/01/24 Stage IV metastatic castrate-resistant prostate cancer. Diagnosed in 2020 (Rena Lara 5+5, PSA 14). Post-surgery PSA fluctuations, PSMA PET scan showed bone lesions. Extensive treatments include radiation, hormone therapy, and chemotherapy. Recent PSA increase to 9.6 indicates disease progression. Order PSMA PET scan to assess for Pluvicto treatment. Conduct biopsy and genetic testing for gene resistance. Discussed options: clinical trials, Pluvicto, and cabazitaxel. Pluvicto involves sixradioactive injections every six weeks, with side effects including dry mouth, dry eyes, redness, and potential bone marrow suppression. Continue Eligard treatment. If PSMA PET scan positive, initiate Pluvicto. Plan and recommendation Discussed options: clinical trials, Pluvicto, and cabazitaxel. Conduct biopsy and genetic testing for gene resistance Continue Eligard treatment. If PSMA PET scan positive, initiate Pluvicto # A flutter On Xarelto #Asthma. Reports wheezing and increased nebulizer use. Prescribe Medrol Dosepak. Advise follow-up with coremaker experimental if no improvement. #Gallbladder infection. Gallbladder removed on 10/26/2024. No significant change in breathing post-surgery. # Bone Health while on ADT ADT increases the risk of bone loss, which is further exacerbated by more potent androgen suppression, longer therapy duration, delayed testosterone recovery, and concurrent use of prednisone. ADT was associated with a 21% to 54% relative increase in fracture risk. The NCCN Guidelines Panel recommends screening and treatment for osteoporosis according to guidelines for the general population from the National Osteoporosis Foundation. A baseline bone mineral density study should be considered for the patients on ADT. The National Osteoporosis Foundation guidelines include: 1) calcium (1164-3284 mg daily from food and supplements) and vitamin D3 (400-1000 IU daily); and 2) additional treatment for males aged greater than or equal to 50 years with low bone mass (T-score between -1.0 and -2.5, osteopenia) at the femoral neck, total hip, or lumbar spine by dual-energy x-ray absorptiometry (DEXA) scan and a 10-year probability of hip fracture greater than or equal to 3% or a 10-year probability of a major osteoporosis-related fracture greater than or equal to 20%. Recommended daily calcium ([id number] mg daily from food and supplements) and vitamin D3 (400-1000 IU daily) and weight bearing exercise Baseline DEXA is ordered #RTC: 2-3 weeks for PSMA PET review and biopsy and possible Pluvicto All pertinent medical problems have been discussed with patient, he has stated he verbally understood it. Yan Scherer MD, PhD assistant professor of mathematics of Internal Medicine Section of Genitourinary Cancers Division of Medical Oncology [facility] P: [phone] F: [phone] Please note this document has been produced using speech recognition Brandwatch and Quirky judy (consented for recording) and may contain errors related to that system including errors with grammar, punctuation, and spelling, as well as words and phrases that may be inappropriate. Some of the documentations have been collected from chart and edited. if there are questions or concerns please feel free to contact the Yan Scherer for clarification. Please look additional history, ROS, Exam, labs and Images below Social History Tobacco Use Smoking Status Never Smokeless Tobacco Former Tobacco Comments Used snuff tobacco for fourty plus years, quit three weeks ago Social History Substance and Sexual Activity Alcohol Use Yes Alcohol/week: 1.0 standard drink of alcohol Types: 1 Cans of beer per week Comment: 0-2 drinks/week. Social History Substance and Sexual Activity Drug Use Never Dannie [place] Delvis is a 63 y.o. Oncology History Prostate cancer 03/17/2020 Tumor Markers PSA 14.03 05/08/2020 Procedure TRUS Prostate Biopsy 05/08/2020 Pathology 05/24/2020 Imaging Bone Scan 06/01/2020 Imaging MRI Pelvis: 07/05/2020 - Cancer Staged Staging form: Prostate, AJCC 8th Edition - Pathologic stage from 07/05/2020: pT3b, pN0, PSA: 14, Grade Group: 5 07/06/2020 Surgery Radical Prostatectomy with lymph node dissection 07/06/2020 Pathology 08/29/2020 Tumor Markers PSA 7.97 09/26/2020 - Cancer Staged Staging form: Prostate, AJCC 8th Edition - Clinical stage from 09/26/2020: cN1 10/03/2020 Imaging 18F PET: 11/28/2020 Tumor Markers PSA 1.29 11/29/[address] Pelvis 12/07/2020 - 01/31/2021 Radiation 04/14/2021 Tumor Markers PSA 0.16 08/08/2021 Tumor Markers PSA 0.34 08/22/2021 Imaging PET 09/19/2021 - 10/13/2021 Radiation RADIATION THERAPY Treatment Details (09/19/2021 - 10/13/2021) Site: Midline Pelvis Technique: SBRT Goal: No goal specified Planned Treatment Start Date: No planned start date specified 05/29/2022 - Cancer Staged Staging form: Prostate, AJCC 8th Edition - Pathologic stage from 05/29/2022: Stage IVB (cM1) 08/25/2024 - Cancer Staged Staging form: Prostate, AJCC 8th Edition - Clinical stage from 08/25/2024: Stage IVB (cM1b) Past Medical History: Diagnosis Date Anemia July 2024 Arrhythmia Asthma 1968 Atrial flutter History of radiation therapy Kidney stone 2012 Migraine 1975 Past Surgical History: Procedure Laterality Date CHOLECYSTECTOMY 10/26/2024 PROSTATECTOMY 06/2020 KNEE SURGERY Left 2009 2 arthroscopic knee surgery in 2009 and 2017 HERNIA REPAIR Left 1999 VASECTOMY 1991 Family History Problem Relation Age of Onset Breast Cancer Mother 60-70's Lung Cancer Father 60 smoker Sudden Cardiac Sister Prostate Cancer Maternal Grandfather Social History Occupational History Not on file Tobacco Use Smoking status: Never Smokeless tobacco: Former Tobacco comments: Used snuff tobacco for fourty plus years, quit three weeks ago Vaping Use Vaping status: Never Used Substance and Sexual Activity Alcohol use: Yes Alcohol/week: 1.0 standard drink of alcohol Types: 1 Cans of beer per week Comment: 0-2 drinks/week. Drug use: Never Sexual activity: Not Currently Partners: Female Social History Tobacco Use Smoking Status Never Smokeless Tobacco Former Tobacco Comments Used snuff tobacco for fourty plus years, quit three weeks ago Social History Substance and Sexual Activity Alcohol Use Yes Alcohol/week: 1.0 standard drink of alcohol Types: 1 Cans of beer per week Comment: 0-2 drinks/week. Social History Substance and Sexual Activity Drug Use Never Ciprofloxacin Current Medications: Current Outpatient Medications Medication Sig Advair Diskus 100-50 MCG/ACT Aerosol Powder, breath activated inhaler ALBUTEROL IN Inhale as needed. flecainide 100 MG tablet metoprolol 50 MG tab regular release Take 50 mg by mouth daily. (Patient taking differently: Take 2tablets by mouth daily.) montelukast 10 MG tablet OMEPRAZOLE PO 20 mg. Pegfilgrastim-jmdb (FULPHILA SC) Inject under the skin. Xarelto 20 MG tablet methylPREDNIsolone 4 MG Tab Therapy Pack tablet Take 1 tablet by mouth As directed. follow package directions Review of Systems Review of Systems Constitutional: Negative. Negative for chills, fatigue, fever and unexpected weight change. HENT: Negative. Negative for congestion, hearing loss, trouble swallowing and voice change. Eyes: Negative for visual disturbance. Respiratory: Negative for apnea, cough, choking, chest tightness, shortness of breath and wheezing. Cardiovascular: Negative for chest pain, palpitations and leg swelling. Gastrointestinal: Negative for abdominal distention, abdominal pain, blood in stool, constipation, diarrhea, nausea and vomiting. Endocrine: Negative for cold intolerance and heat intolerance. Genitourinary: Negative for difficulty urinating, dysuria, flank pain, frequency, hematuria and urgency. Musculoskeletal: Positive for arthralgias and back pain. Negative for gait problem, joint swelling and myalgias. Skin: Negative for color change, pallor, rash and wound. Neurological: Negative for dizziness, tremors, seizures, speech difficulty, weakness, light-headedness, numbness and headaches. Hematological: Negative for adenopathy. Does not bruise/bleed easily. Psychiatric/Behavioral: Negative for agitation, behavioral problems and confusion. The patient is not nervous/anxious. Vital Signs Blood pressure 99/58, pulse 75, temperature 97.6 F (36.4 C), temperature source Oral, resp. rate 18, height 1.829 m (6'), weight 97.8 kg (215 lb 9.6 oz), SpO2 95%. BP Readings from Last 3 Encounters: 11/01/24 99/58 10/12/21 138/84 09/19/21 128/71 Wt Readings from Last 3 Encounters: 11/01/24 97.8 kg (215 lb 9.6 oz) 10/12/21 109.8 kg (242 lb 1.6 oz) 09/19/21 111.7 kg (246 lb 4.8 oz) Physical Exam Body mass index is 29.24 kg/m . Wt Readings from Last 3 Encounters: 11/01/24 97.8 kg (215 lb 9.6 oz) 10/12/21 109.8 kg (242 lb 1.6 oz) 09/19/21 111.7 kg (246 lb 4.8 oz) Physical Exam Constitutional: Appearance: Normal appearance. HENT: Head: Normocephalic and atraumatic. Nose: No congestion. Cardiovascular: Rate and Rhythm: Normal rate and regular rhythm. Pulmonary: Effort: No respiratory distress. Breath sounds: No stridor. No wheezing, rhonchi or rales. Abdominal: General: Abdomen is flat. There is no distension. Palpations: Abdomen is soft. Tenderness: There is no abdominal tenderness. Musculoskeletal: General: No swelling or tenderness. Cervical back: Normal range of motion and neck supple. Right lower leg: No edema. Left lower leg: No edema. Skin: General: Skin is warm. Findings: No lesion or rash. Neurological: General: No focal deficit present. Mental Status: He is alert and oriented to person, place, and time. Motor: No weakness. Gait: Gait normal. Psychiatric: Mood and Affect: Mood normal. Behavior: Behavior normal. Laboratory Data Lab Results Component Value Date PSA 9.62 (H) 11/01/2024 Lab Results Component Value Date PSA 9.62 (H) 11/01/2024 No results found for: TESTOSTTTL, TESTOSTTOT, TESTOSTERONE Lab Results Component Value Date WBC 3.88 11/01/2024 HGB 9.6 (L) 11/01/2024 HCT 30.3 (L) 11/01/2024 PLATELET 334 11/01/2024 MCV 83.9 11/01/2024 Lab Results Component Value Date SODIUM 135 11/01/2024 POTASSIUM 3.6 11/01/2024 CHLORIDE 102 11/01/2024 CO2 28 11/01/2024 BUN 14 11/01/2024 CREATSERUM 0.55 (L) 11/01/2024 Lab Results Component Value Date ALT 18 11/01/2024 AST 18 11/01/2024 ALKPHOS 194 (H) 11/01/2024 BILITOTAL 0.6 11/01/2024 No results found for: LDH * Kelly Diana Pimentel, [employer] CHIEF-STRIPPER AND PRINTER - 11/01/2024 11:00 AM EDT Images from the original note were not included. Referring provider: Jignesh Purcell MB* Consultation reason: Malignant neoplasm of prostate, Secondary malignant neoplasm of bone Thank you very much for requesting a Medical oncology consultation for the patient Diagnosis, Staging and Date history Recurrent mCRPC, Stage IV M1 07/05/2020: RPLND & Prostatectomy: Rena Lara 9 (5+4), 70% involvement, EPE, seminal vesicle invasion, [id number] 06/01/2020: MRI: PIRADS 5 lesion, seminal vesicle involvement 05/08/2020: Prostate biopsy: Rena Lara 10 (5+5) adenocarcinoma 03/2020: Presented with LUTS, PSA 14.03, abnormal DANNY Pertinent oncologic and treatment History beside PI 10/2024: ADT ongoing since 12/2020 (Eligard 22.5 mg as of 06/04/2022 ) - present 09/2024: Bone scan:Multifocal axial and appendicular bony metastatic disease, possibly increased asbest compared to prior outside institution bone scan from 08/25/2024. 08/2024: PSA chad to 4.97 Palliative XRT to L shoulder & T12 -07/2024: MRI & Bone scans showed progressive osseous metastases 02/2024-04/2024: Abiraterone/Prednisone -02/2024: Darolutamide -11/2023: Docetaxel (6 cycles) 07/2023: Palliative XRT to L2-L3 05/2023-07/2024: Apalutamide 07/2022: Xtandi restarted 05/2022: PET PSMA: Bone metastases Xtandi briefly initiated 2022 PSA Trend: Dropped to 0.2, then chad to 4.97 by 08/2024-09/2021: SBRT to presacral/periaortic nodes 07/2021: PET: Retroperitoneal/presacral LN activity; Bone scan negative 2021 PSA Trend: Chad from 0.16 ? 1.89 2021 Treatments: SBRT to presacral lymph nodes Enzalutamide Apalutamide Palliative XRT to L2-L3 Docetaxel x6 cycles Darolutamide Abiraterone/Prednisone Palliative XRT to L shoulder & T12 -01/2021: Salvage RT to prostate bed/pelvis 12/2020: Initiation of ADT 09/2020: CT & PET: Prostate bed recurrence, pelvic nodules, supraclavicular uptake 2020 PSA Trend: Fluctuated from 0.2 ? 7.97 07/05/2020: RPLND & Prostatectomy: Chuck 9 (5+4), 70% involvement, EPE, seminal vesicle invasion, [id number] 06/01/2020: MRI: PIRADS 5 lesion, seminal vesicle involvement 05/08/2020: Prostate biopsy: Rena Lara 10 (5+5) adenocarcinoma 03/2020: Presented with LUTS, PSA 14.03, abnormal DANNY Genomic profile Molecular & Genetic Testing 07/05/2020: Tumor profiling: PTEN loss, p53+, RB1 weak, MSI-L, TET1/TP53 mutations, TMPRSS2/ERG fusion, TMB 1 mut/Mb 08/02/2022: MDA Liquid Biopsy: No CNV, somatic mutations, or fusions ECO Presents today with his and son to establish care and for further treatment discussion. Currently he reports spending more than 75% of day in the bed/chair d/t CAPPS. He reports CAPPS initially started in 11/2023 and has gradually worsened. He reports recently completing course of Doxycycline for suspected PNA. He denies coughing. He denies having any CP. He reports occasionally feeling heart palpitations. He denies having any AYON or vision changes. He reports feeling dizzy while standing in the kitchen yesterday. He states his appetite is poor and he is getting full easily. He denies having any N/V . He reports having diarrhea since his cholecystectomy last week. He reports diarrhea is improving and he is having max 2 episodes/day. He denies having any melena or hematochezia. He denies having any fevers, chills, dysuria or hematuria. He reports having right sided posterior ribcage pain. He denies taking any pain medications currently. He has intermittent numbness/tingling in his fingers and feet. Initial HPI Dannie Edmondson is a 63 y.o. male works in [employer] with past medical history of atrialflutter, currently managed with flecainide and rivaroxaban, presents here for 2nd opinion evaluation of mCRPC with osseous metastases. His initial PSA was 14, and Chuck score was 5+5=10. Oncologic History: 07/06/2020: Diagnosed with very high-risk prostate adenocarcinoma (pT3bN0, PSA 14.03, Rena Lara 10); underwent radical prostatectomy (RP) with pelvic lymph node dissection (PLND). 08/29/2020: Postoperative PSA remained elevated at 7.97. 10/03/2020: Fluciclovine PET scan showed PET-avid disease in the prostate bed and pelvis. 01/31/2021: Completed salvage radiation therapy (RT) to the prostate bed (70.2 Gy) and pelvis (45 Gy), with ongoing androgen deprivation therapy (ADT) initiated in December 2020. 04/14/2021: PSA dropped to 0.16 but chad again to 0.34 by 08/08/2021. 08/22/2021: PSMA-PET revealed retroperitoneal PET-avid lymph nodes, including a presacral node within the prior radiation field. Underwent dustin irradiation with a plan for 20 fractions (40 Gy to elective nodes, 55 Gy boost to gross disease). Received SBRT to the presacral lymph node (30 Gy to PTV, 40 Gy SIB to GTV). 05/2022: PSMA-PET confirmed bone metastases. 04/2024-07/2024: MRI and bone scans showed progressive osseous metastases. Therapies Received: ADT (ongoing since 12/2020) Enzalutamide Apalutamide Darolutamide Abiraterone with prednisone Docetaxel (6 cycles) Palliative radiation therapy to: L2-L3 spine Left shoulder T12 vertebra 10/05/24 CT C/A/P: Multiple osseous sclerotic lesions are seen scattered within the axial and appendicular skeleton. These sclerotic lesions involving several lumbar and thoracic vertebrae (L1-L5), T12, T8 and T3 vertebral bodies. A large expansile mixed lytic and sclerotic lesion is seen involving the right lateral aspect of L3 vertebra as well as the right transverse process of L3. Mild sclerosis and mild deformity of upper endplate of S1 is also seen. Several smaller sclerotic lesions are seen involving the pelvic bones, bilateral ribs, manubrium, left clavicle and left scapula. Recent Evaluation (10/06/2024): by Davy Alcocer M.D. from [facility] Reviewed updated imaging showing progressive bone metastases. Discussed prognosis and next-line treatment options for refractory mCRPC, [id number] Cabazitaxel [place]-223 11/01/24 [facility] visit: Assessment and Plan: Dannie Edmondson is a 63 y.o. 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 Treatment history includes: RP + PLND (2020), salvage XRT + ADT () Castration-resistant disease since 09/2021 Palliative bone XRT, enzalutamide (until 05/2023) Apalutamide (), docetaxel 6 () Darolutamide (), abiraterone (02/2024-04/2024) Recent imaging: Progressive bone metastases 11/01/2024: Patient confirmed above history. PSA rising, 9.62 ng/mL today. # mCRPC, Stage IV M1 POD and ADT. Multiple ARPIs and Docetaxel # 07/05/2020: RPLND & Prostatectomy: Rena Lara 9 (5+4), 70% involvement, EPE, seminal vesicle invasion, [id number] Please see the details of disease in HPI section Plan and recommendation Discussed options: clinical trials, Pluvicto, Xofigo, and chemotherapy. Our recommendation is to proceed with Pluvicto on or off trial. Discussed that currently his PS would prevent him from being a candidate for clinical trial [facility] [id number]: Pluvicto + ONC-392. Education and handout on Pluvicto provided. Referral to IR placed for bone biopsy to be completed. RTC in 2 weeks with repeat labs and PSMA PET scan prior. #Venous Access: Has Hypertension Diagnostics # Bone Health while on ADT: He reports he is on a bone strengthening agent locally. Medication administration records requested. #Pain Management: Currently taking Tylenol PRN but has Oxycodone available if needed. #CAPPS: Has history of asthma. Recently completed course of Doxycycline last week for suspected PNA. Dr. Scherer prescribed Medrol dose pack to see if this helps to improve CAPPS. #History of A-flutter: Currently on Lopressor, Flecainide, and Xarelto. #Genetics: Liquid biopsy completed in 07/2022 with no targetable mutations noted. Will plan to perform Guardant testing at next visit. He states he believes he had genetic testing completed. Will attempt to request the results. #RTC: 2 weeks with labs and PSMA PET prior. Kelly Pimentel, MITESH-STRIPPER AND PRINTER All pertinent medical problems have been discussed with patient, he has stated he verbally understood it. Yan Scherer MD, PhD assistant professor of mathematics of Internal Medicine Section of Genitourinary Cancers Division of Medical Oncology [facility] P: [phone] F: [phone] Please note this document has been produced using speech recognition [employer]watch and Quirky judy (consented for recording) and may contain errors related to that system including errors with grammar, punctuation, and spelling, as well as words and phrases that may be inappropriate. Some of the documentations have been collected from chart and edited. if there are questions or concerns please feel free to contact the Yan Scherer for clarification. Please look additional history, ROS, Exam, labs and Images below Social History Tobacco Use Smoking Status Never Smokeless Tobacco Former Tobacco Comments Used snuff tobacco for fourty plus years, quit three weeks ago Social History Substance and Sexual Activity Alcohol Use Yes Alcohol/week: 1.0 standard drink of alcohol Types: 1 Cans of beer per week Comment: 0-2 drinks/week. Social History Substance and Sexual Activity Drug Use Never Dannie Edmondson is a 63 y.o. Oncology History Prostate cancer 03/17/2020 Tumor Markers PSA 14.03 05/08/2020 Procedure TRUS Prostate Biopsy 05/08/2020 Pathology 05/24/2020 Imaging Bone Scan 06/01/2020 Imaging MRI Pelvis: 07/05/2020 - Cancer Staged Staging form: Prostate, AJCC 8th Edition - Pathologic stage from 07/05/2020: pT3b, pN0, PSA: 14, Grade Group: 5 07/06/2020 Surgery Radical Prostatectomy with lymph node dissection 07/06/2020 Pathology 08/29/2020 Tumor Markers PSA 7.97 09/26/2020 - Cancer Staged Staging form: Prostate, AJCC 8th Edition - Clinical stage from 09/26/2020: cN1 10/03/2020 Imaging 18F PET: 11/28/2020 Tumor Markers PSA 1.29 11/29/[address] Pelvis 12/07/2020 - 01/31/2021 Radiation 04/14/2021 Tumor Markers PSA 0.16 08/08/2021 Tumor Markers PSA 0.34 08/22/2021 Imaging PET 09/19/2021 - 10/13/2021 Radiation RADIATION THERAPY Treatment Details (09/19/2021 - 10/13/2021) Site: Midline Pelvis Technique: SBRT Goal: No goal specified Planned Treatment Start Date: No planned start date specified 05/29/2022 - Cancer Staged Staging form: Prostate, AJCC 8th Edition - Pathologic stage from 05/29/2022: Stage IVB (cM1) 08/25/2024 - Cancer Staged Staging form: Prostate, AJCC 8th Edition - Clinical stage from 08/25/2024: Stage IVB (cM1b) Past Medical History: Diagnosis Date Anemia July 2024 Arrhythmia Asthma 1968 Atrial flutter History of radiation therapy Kidney stone 2011 Migraine 1974 Past Surgical History: Procedure Laterality Date CHOLECYSTECTOMY 10/26/2024 PROSTATECTOMY 06/2020 KNEE SURGERY Left 2009 2 arthroscopic knee surgery in 2009 and 2017 HERNIA REPAIR Left 1999 VASECTOMY 1992 Family History Problem Relation Age of Onset Breast Cancer Mother 60-70's Lung Cancer Father 60 smoker Sudden Cardiac Sister Prostate Cancer Maternal Grandfather Social History Occupational History Not on file Tobacco Use Smoking status: Never Smokeless tobacco: Former Tobacco comments: Used snuff tobacco for fourty plus years, quit three weeks ago Vaping Use Vaping status: Never Used Substance and Sexual Activity Alcohol use: Yes Alcohol/week: 1.0 standard drink of alcohol Types: 1 Cans of beer per week Comment: 0-2 drinks/week. Drug use: Never Sexual activity: Not Currently Partners: Female Social History Tobacco Use Smoking Status Never Smokeless Tobacco Former Tobacco Comments Used snuff tobacco for fourty plus years, quit three weeks ago Social History Substance and Sexual Activity Alcohol Use Yes Alcohol/week: 1.0 standard drink of alcohol Types: 1 Cans of beer per week Comment: 0-2 drinks/week. Social History Substance and Sexual Activity Drug Use Never Ciprofloxacin Current Medications: Current Outpatient Medications Medication Sig Advair Diskus 100-50 MCG/ACT Aerosol Powder, breath activated inhaler ALBUTEROL IN Inhale as needed. flecainide 100 MG tablet metoprolol 50 MG tab regular release Take 50 mg by mouth daily. (Patient taking differently: Take 2tablets by mouth daily.) montelukast 10 MG tablet OMEPRAZOLE PO 20 mg. Pegfilgrastim-jmdb (FULPHILA SC) Inject under the skin. Xarelto 20 MG tablet Review of Systems Review of Systems Constitutional: Positive for appetite change and fatigue. Respiratory: Positive for shortness of breath. Cardiovascular: Positive for palpitations. Gastrointestinal: Positive for diarrhea. Musculoskeletal: Right sided posterior ribcage pain Neurological: Positive for dizziness. Vital Signs Blood pressure 99/58, pulse 75, temperature 97.6 F (36.4 C), temperature source Oral, resp. rate 18, height 1.829 m (6'), weight 97.8 kg (215 lb 9.6 oz), SpO2 95%. BP Readings from Last 3 Encounters: 11/01/24 99/58 10/12/21 138/84 09/19/21 128/71 Wt Readings from Last 3 Encounters: 11/01/24 97.8 kg (215 lb 9.6 oz) 10/12/21 109.8 kg (242 lb 1.6 oz) 09/19/21 111.7 kg (246 lb 4.8 oz) Physical Exam Body mass index is 29.24 kg/m . Wt Readings from Last 3 Encounters: 11/01/24 97.8 kg (215 lb 9.6 oz) 10/12/21 109.8 kg (242 lb 1.6 oz) 09/19/21 111.7 kg (246 lb 4.8 oz) Physical Exam Constitutional: General: He is not in acute distress. HENT: Head: Normocephalic and atraumatic. Eyes: Extraocular Movements: Extraocular movements intact. Conjunctiva/sclera: Conjunctivae normal. Cardiovascular: Rate and Rhythm: Normal rate and regular rhythm. Pulmonary: Effort: Pulmonary effort is normal. Breath sounds: Rales present. Comments: + fine crackles in LLL. Abdominal: General: Bowel sounds are normal. Palpations: Abdomen is soft. Musculoskeletal: Comments: Trace BLE ankle/pedal edema Lymphadenopathy: Cervical: No cervical adenopathy. Neurological: General: No focal deficit present. Mental Status: He is alert and oriented to person, place, and time. Psychiatric: Mood and Affect: Mood normal. Behavior: Behavior normal. Laboratory Data Lab Results Component Value Date PSA 9.62 (H) 11/01/2024 Lab Results Component Value Date PSA 9.62 (H) 11/01/2024 No results found for: TESTOSTTTL, TESTOSTTOT, TESTOSTERONE Lab Results Component Value Date WBC 3.88 11/01/2024 HGB 9.6 (L) 11/01/2024 HCT 30.3 (L) 11/01/2024 PLATELET 334 11/01/2024 MCV 83.9 11/01/2024 Lab Results Component Value Date SODIUM 135 11/01/2024 POTASSIUM 3.6 11/01/2024 CHLORIDE 102 11/01/2024 CO2 28 11/01/2024 BUN 14 11/01/2024 CREATSERUM 0.55 (L) 11/01/2024 Lab Results Component Value Date ALT 18 11/01/2024 AST 18 11/01/2024 ALKPHOS 194 (H) 11/01/2024 BILITOTAL 0.6 11/01/2024 No results found for: LDH [facility] Consult note [facility] Medical Records Department [address] [place] [id number] Anesthesia Postop Eval II 10/26/24 1819 MR#: [id number] Acct: [id number] Name: DANNIE EDMONDSON Rep #:[id number] : 1960 63 From: Erasto Torres MD PCP: Dr. Carlitos Brewer, DO Status:REG SDC Y Race: C Location: [place] [address] Anesthesia Postop Eval I Sum Postop Eval Completion status Anesthesia document: Postop Eval 1 completed: Yes Anesthesia Postop Eval I Summary Anesthesia Postop Eval I Summary: Anesthesia Postop Eval I: Assessment Summary Airway patent Yes 10/26/24 17:04 WINDOWS PHONE [email or web address] Spontaneous unlabored Yes 10/26/24 17:04 WINDOWS PHONE [email or web address] respirations Mental status Awake 10/26/24 17:04 WINDOWS PHONE [email or web address] nausea No 10/26/24 17:04 WINDOWS PHONE [email or web address] Vomiting No 10/26/24 17:04 WINDOWS PHONE [email or web address] Anesthesia Postop Eval I: Fluid Summary Crystalloid volume administer 1,000 10/26/24 17:04 WINDOWS PHONE [email or web address] (ml) Colloids volume administered ( ml) Blood Product volume administered (ml) Total IV fluid infused 1,000 10/26/24 17:04 WINDOWS PHONE [email or web address].ACAR Anesthesia Postop Eval I: Summary Notes Anesthesia Complication No 10/26/24 17:04 WINDOWS PHONE DEVELOPER.ACAR Anesthesia Complication Comment: Post-operative progress note Anesthesia: Postop Eval II Evaluation Mental status: Awake and Calm Pain Level: 2 nausea: No Vomiting: No Complications Anesthesia Complication: No 10/26/24 1819 D> Date _ Erasto Lazarigner Signature: Date CC: ~ Signed [facility]07-01-2025 Consult note Author Rivera العراقي [facility] Note Date/Time October 26, 2024 5:04p [facility] Medical Records Department [address] [place] [address] Anesthesia Postop Eval I 10/26/241701 MR#: [id number] Acct: [id number] Name: DANNIE EDMONDSON FLO Rep #:[id number] : 1960 63 From: Rivera sams CRNA PCP: Dr. Carlitos Brewer, DO Status:REG SDC Y Race: C Location: [place] [address] Anesthesia: Postop Eval I Current Vital Signs Temperature: 97.7 F Pulse Rate: 75 Blood Pressure: 141/83 Respiratory Rate: 16 Pulse Ox: 92 Oxygen Delivery Method: Room Air Assessment Airway patent: Yes Spontaneous unlabored respirations: Yes Mental status: Awake nausea: No Vomiting: No Anesthesia Complication: No Fluid Hydration Crystalloid volume administer (ml): 1,000 Total IV fluid infused: 1,000 Progress Note Anesthesia document: Postop Eval 1 completed: Yes 10/26/241703 <Electronically signed by Rivera nicolas CRNA> Date _ Rivera العراقي CRNA Cosigner Signature: Date CC: ~ Signed [facility] Work Phone: 1(832) 905-883007-01-2025 Discharge summary Author Kitty Pruett [facility] Note Date/Time October 26, 2024 5:04p [facility] Medical Records Department [address] [facility] [place] [address] Instructions for Home/Discharge Instructions 10/26/24 1700 MR#: [id number] Acct: [id number] Name: DANNIE EDMONDSON Rep #:[id number] : 1960 63 From: Kitty Pruett MD PCP: Dr. Carlitos Brewer, DO Status:[place] [facility] [place]charge Instructions Diet Discharge Diet: Light diet - advance as tolerated Activity May shower in (days): 5 (Keep umbilical dressing clean dry and intact for 5 days. Okay to tape off with a Ziploc bag to shower after 24 hours. Or lower shower and upper sponge bath.) Lifting Restrictions: no lifting >20 lbs x 2 wks, no strenuous exercise for 4 wks Additional Activity Instructions:: - Dressing / Incision Call your doctor if your incision/area has: Continuous Slow Oozing, Sudden Increased Bleeding, Increased Pain/ Swelling, Increased Redness, Foul Smelling Discharge and Swelling at the incision site Call your doctor if you observe: Fever of 101 or Higher Remove Dressing in: 5 days (After 5 days okay to remove surgical dressing. Place cotton ball or rolled up gauze in bellybutton and retape daily for 2 more days.) Cleanse incision/area with: Soap & Water (For left upper quadrant left lower quadrant and right lower quadrant incisions) and Do not get Incision Wet (for 5 days for umbilical incision) Additional Dressing/Incision Instructions:: Steri-Strips will fall off in 7 to 10 days, if they do not fall off okay to remove after 10 days. Follow Up Care Please Follow Up With: Kitty Pruett MD When: Call the office for a follow-up appointment 2 weeks; after 5 PM and on call [phone] with any concerns. Test Results: Test results from this visit will be discussed in further detail at your follow- up appointment, if applicable. Discharge Plan Admission Attending Provider: Kitty Pruett Primary Care Provider: Carlitos Brewer Instructions Print Language: Brazilian Discharge Orders/Prescriptions Prescriptions: New oxycodone 5 mg capsule 5 mg PO Q6H PRN (Reason: pain) 3 Days Qty: 10 0RF Continued albuterol sulfate [Ventolin HFA] 90 mcg/actuation HFA aerosol inhaler 2 puff INHALATION Q6H PRN (Reason: Asthma) Eligard (3 month) 22.5 mg syringe 22.5 mg subcut .q 3 month flecainide 100 mg tablet 100 mg PO BID Qty: 180 3RF metoprolol succinate 100 mg tablet extended release 24 hr 100 mg PO DAILY Qty: 90 3RF omeprazole 20 mg tablet,delayed release (DR/EC) 20 mg PO QHS albuterol sulfate 2.5 MG/3 ML solution for nebulization 1.25 mg INHALATION Q6H PRN PRN (Reason: Asthma) montelukast 10 MG tablet 10 mg PO QHS fluticasone propion-salmeterol [Advair Diskus] 100-50 mcg/dose blister with device 1 inh INHALATION Q12H calcium carbonate [Calcium 600] 600 mg calcium (1,500 mg) tablet 600 mg PO DAILY tizanidine 4 mg tablet 4 mg PO TID PRN (Reason: muscle spasticity) albuterol sulfate 1.25 mg/3 mL solution for nebulization 1.25 mg inhalation 4X/DAY PRN PRN (Reason: shortness of breath or wheezing) oxycodone 5 mg capsule 5 mg PO Q6H PRN (Reason: pain) 3 Days Qty: 5 0RF cefdinir 300 mg capsule 300 mg PO BID Held rivaroxaban 20 mg tablet 20 mg PO QHS Qty: 90 3RF Hold Instructions: Resume on 10/28/24. Patient Comments: LAST DOSE TO BE 10/22/24 FOR SURGERY ON 10/26/24 Referrals / Follow Up: Carlitos Brewer DO [Primary Care Provider] - Disposition Disposition (needs filled in before D/C Order can be placed): Home, Self Care 10/26/24 1704<Electronically signed by Kitty Pruett MD>Kitty Pruett MD CC: Dr. Carlitos Brewer DO ~ Signed [facility] Work Phone: [phone]) 138-260907-01-2025 Procedure note [facility] Medical Records Department [address] [place] [address] Operative Report 10/26/24 1649 MR#: [id number] Acct: [id number] Name: DANNIE EDMONDSON Rep #:[id number] : 1960 63 From: Kitty Pruett MD PCP: Dr. Carlitos Brewer DO Status:REG [facility] Location: [place] [address] Operative Report (Standard) Operative Information Date of Procedure: 10/26/24 Pre-Operative Diagnosis: Acute cholecystitis, cholelithiasis, umbilical hernia Post-Operative Diagnosis: Same Surgery/Procedure Performed: Robotic cholecystectomy with ICG, primary umbilicalhernia repair sales and marketing analyst: Yes Broadcast Designer: Lam Olvera Tasks completed by warehouse administrative assistant: Opening & closing and Retracting Type of Anesthesia: General/Supplemental RN Documented Start/Stop Times: Operation Date: 10/26/24 13:00 Case Time Into Pre-Op 10/26/24 11:44 Anesthesia Start 10/26/24 14:55 Into Room 10/26/24 14:55 Procedure Start 10/26/24 15:12 Procedure End 10/26/24 16:48 Anesthesia End 10/26/24 16:53 Out of Room 10/26/24 16:53 Procedure Start Time: 15:12 Procedure Stop Time: 16:48 Select all DRAINS/GRAFTS/IMPLANTS that apply: None Special Medications: Cefotetan 2 g IV x 1 Estimated Blood Loss: 20 cc Specimen collected: Yes Description of specimen(s) removed: Gallbladder Description of surgery: Indications: this is a 63 year-old male who developed abdominal pain/nausea/vomiting found to have acute cholecystitis status post cholecystostomy tube placement, with a normal common bile duct. Robotic cholecystectomy was elected. Description procedure: The patient was placed on operating table in supine position. A timeout was completed verifying correct patient, procedure, site, position and special equipment prior to beginning procedure. General Anesthesia was induced. The abdomen was prepped and draped in usual sterile fashion. An curvilinear incision was made in the natural skin line below the umbilicus. Hemostat was used to ground the stalk of the umbilicus. The hernia was carefully from the skin of the umbilicus and reduced back in the abdomen. The fascia was elevated. The peritoneum was elevated and incised. Entry into the peritoneum was confirmed visually and no bowel was noted in the vicinity of the incision. Leblanc trocar was placed. The abdomen was insufflated with carbon dioxide to a pressure of 12-15 mmHg. Patient tolerated insufflation well. The laparoscope was then inserted and abdomen inspected. No injuries from initial trocar placement were noted. Additional trochars were then inserted in the following locations 8 mm trocar left upper quadrant and 2 more 8 mm trochars in right lower quadrant and left lower quadrant. The abdomen was inspected no abnormalities were found. The table is placed in reverse Trendelenburg position with the right side up. Robotwas docked. The adhesions between the gallbladder and omentum were taken down carefully withtraction. The dome of the gallbladder was grasped with atraumatic grasper passed through the lateral port and retractedover the dome of the liver. Infundibulum was then grasped with atraumatic grasper through the midclavicular port and retracted to the right lower quadrant. This maneuver exposed Calot's triangle. Cholecystostomy tube was removed. The peritoneum overlying the gallbladder infundibulum was then incised and cystic duct and artery identified and circumferentially dissected. ICG was usedto visualize the cystic duct. The cystic ductand artery were then doubly clipped and divided close to the gallbladder. The gallbladder then dissected from its peritoneal attachments by electrocautery, and distal aspectwas tightly adherent and left in place. Distal posterior gallbladder wall mucosa was cauterized. Hemostasis was checkedand the gallbladder was removed using the endoscopic retrieval bag through the umbilical port. The gallbladder is passed off table as specimen. The gallbladder fossa was irrigated with saline and hemostasis obtained. There is no evidence of bleeding from the gallbladder fossa or cystic artery leakage of bile from the cystic duct stump. Secondary trochars removed under direct vision. No bleeding was noted the trocar sites. The laparoscope was withdrawn and umbilical trocar removed. The abdomen was allowed to collapse. The fascia of the 12 mm trocar was closed witha [id number] Nurolon suture. Skin of the umbilicus was tackedback down to the fascia with 3-0 Vicryl interrupted suture. The skin was closed with sutures of 4-0Monocryl and Steri-Strips. Cotton balls were placed in the umbilicus over the skin and OpSite was placed. The patient was extubated. The patient tolerated procedure well and was taken to the postanesthesia care unit in stable condition. Surgical Findings: See operative report Complications Complications: No 10/26/241704 Cosigner Signature (if applicable): CC: Dr. Carlitos Brewer DO; Dr. Kitty Pruett MD~ Signed [facility]07-01-2025 Consult note [facility] Medical Records Department [address] [place] [address] Anesthesia Postop Eval I 10/26/241701 MR#: [id number] Acct: [id number] Name: DANNIE EDMONDSON Rep #:[id number] : 1960 63 From: Rivera sams WINDOWS PHONE DEVELOPER PCP: Dr. Carlitos Brewer DO Status:REG SDC Y Race: C Location: [place] [address] Anesthesia: Postop Eval I Current Vital Signs Temperature: 97.7 F Pulse Rate: 75 Blood Pressure: 141/83 Respiratory Rate: 16 Pulse Ox: 92 Oxygen Delivery Method: Room Air Assessment Airway patent: Yes Spontaneous unlabored respirations: Yes Mental status: Awake nausea: No Vomiting: No Anesthesia Complication: No Fluid Hydration Crystalloid volume administer (ml): 1,000 Total IV fluid infused: 1,000 Progress Note Anesthesia document: Postop Eval 1 completed: Yes 10/26/241703 ero WINDOWS PHONE DEVELOPER> Date _ Rivera Carriero WINDOWS PHONE DEVELOPER Cosigner Signature: Date CC: ~ Signed [facility]07-01-2025 Discharge summary [facility] Medical Records Department [address] [place] [address] Instructions for Home/Discharge Instructions 10/26/24 1700 MR#: [id number] Acct: [id number] Name: DANNIE EDMONDSON Rep #:[id number] : 1960 63 From: Kitty Pruett MD PCP: Dr. Carlitos Brewer, DO Status:REG [facility] Discharge Instructions Diet Discharge Diet: Light diet - advance as tolerated Activity May shower in (days): 5 (Keep umbilical dressing clean dry and intact for 5 days. Okay to tape off with a Ziploc bag to shower after 24 hours. Or lower shower and upper sponge bath.) Lifting Restrictions: no lifting >20 lbs x 2 wks, no strenuous exercise for 4 wks Additional Activity Instructions:: - Dressing / Incision Call your doctor if your incision/area has: Continuous Slow Oozing, Sudden Increased Bleeding, Increased Pain/ Swelling, Increased Redness, Foul Smelling Discharge and Swelling at the incision site Call your doctor if you observe: Fever of 101 or Higher Remove Dressing in: 5 days (After 5 days okay to remove surgical dressing. Place cotton ball or rolled up gauze in bellybutton and retape daily for 2 more days.) Cleanse incision/area with: Soap & Water (For left upper quadrant left lower quadrant and rightlower quadrant incisions) and Do not get Incision Wet (for 5 days for umbilical incision) Additional Dressing/Incision Instructions:: Steri-Strips will fall off in 7 to 10 days, if they do not fall off okay to remove after 10 days. Follow Up Care Please Follow Up With: Kitty Pruett MD When: Call the office for a follow-up appointment 2 weeks; after 5 PM and on call [phone] with any concerns. Test Results: Test results from this visit will be discussed in further detail at your follow- up appointment, if applicable. Discharge Plan Admission Attending Provider: Kitty Pruett Primary Care Provider: Carlitos Brewer Instructions Print Language: Brazilian Discharge Orders/Prescriptions Prescriptions: New oxycodone 5 mg capsule 5 mg PO Q6H PRN (Reason: pain) 3 Days Qty: 10 0RF Continued albuterol sulfate [Ventolin HFA] 90 mcg/actuation HFA aerosol inhaler 2 puff INHALATION Q6H PRN (Reason: Asthma) Eligard (3 month) 22.5 mg syringe 22.5 mg subcut .q 3 month flecainide 100 mg tablet 100 mg PO BID Qty: 180 3RF metoprolol succinate 100 mg tablet extended release 24 hr 100 mg PO DAILY Qty: 90 3RF omeprazole 20 mg tablet,delayed release (DR/EC) 20 mg PO QHS albuterol sulfate 2.5 MG/3 ML solution for nebulization 1.25 mg INHALATION Q6H PRN PRN (Reason: Asthma) montelukast 10 MG tablet 10 mg PO QHS fluticasone propion-salmeterol [Advair Diskus] 100-50 mcg/dose blister with device 1 inh INHALATION Q12H calcium carbonate [Calcium 600] 600 mg calcium (1,500 mg) tablet 600 mg PO DAILY tizanidine 4 mg tablet 4 mg PO TID PRN (Reason: muscle spasticity) albuterol sulfate 1.25 mg/3 mL solution for nebulization 1.25 mg inhalation 4X/DAY PRN PRN (Reason: shortness of breath or wheezing) oxycodone 5 mg capsule 5 mg PO Q6H PRN (Reason: pain) 3 Days Qty: 5 0RF cefdinir 300 mg capsule 300 mg PO BID Held rivaroxaban 20 mg tablet 20 mg PO QHS Qty: 90 3RF Hold Instructions: Resume on 10/28/24. Patient Comments: LAST DOSE TO BE 10/22/24 FOR SURGERY ON 10/26/24 Referrals / Follow Up: Carlitos Brewer DO [Primary Care Provider] - Disposition Disposition (needs filled in before D/C Order can be placed): Home, Self Care 10/26/24 1704Kitty Pruett MD CC: Dr. Carlitos Brewer DO ~ Signed [facility]07-01-2025 Consult note Author Erasto Torres [facility] Note Date/Time October 26, 2024 1:21p m [facility] Medical Records Department [address] [facility] [place] [address] Pre-Anesthesia Evaluation 10/26/24 1314 MR#: [id number] Acct: [id number] Name: DANNIE EDMONDSON Rep #:[id number] : 1960 63 From: Erasto Torres MD PCP: Dr. Carlitos Brewer, DO Status:REG SDC Y Race: C Location: [place] [address] ASA Classification* ASA Classification ASA Classification: 3 (patient did not take flecanide or metoprolol this morning, we will give his morning dose of flecanide in preop. discussed risk of perioperative arrhythmias ) Assessment & Plan Anesthesia* Anesthesia Assessment Anesthesia Assessment: Discussed sedation and/or anesthesia options, risks, benefits, and alternatives with patient/parents/legal guardian/POA. Questions invited. The patient/parents/legal guardian/POA seems to understand and agrees to proceedwith anesthesia plan. Reviewed the physical assessment, medical history, allergy history and patient home medications list prior to surgery/procedure/anesthetic and documented any changes. Performed airway and anesthesia risk assessments. Anesthesia Type Anesthesia Type: General (GA with ETT) History Source History Obtained from:: Patient, Chart and Significant Other Anesthesia Focused Assessment* Temperature: 97.2 F Pulse Rate: 79 Blood Pressure: 117/77 Respiratory Rate: 18 Pulse Ox: 96 Oxygen Delivery Method: Room Air Airway Assessment Mouth opens: 2 cm Mallampati Score: II Teeth Condition: Intact Labs Anesthesia Preop lab: CBC WBC 3.5 K/mm3 (4.4-11.0) L 10/19/24 15:10/19/24 RBC 3.51 M/mm3 (4.6-6.2) L 10/19/24 15:30 10/19/24 Hgb 9.7 g/dL (13.0-16.5) L 10/19/24 15:30 10/19/24 Hct 30.1 % (40-54) L 10/19/24 15:30 10/19/24 Plt Count 351 K/mm3 (150-450) 10/19/24 15:30 10/19/24 CHEMISTRY Potassium 4.0 mmol/L (3.3-5.1) 10/19/24 15:30 10/19/24 Sodium 136 mmol/L (133-145) 10/19/24 15:30 10/19/24 BUN 17 mg/dL (4-19) 10/19/24 15:30 10/19/24 Creatinine 0.59 mg/dL (0.70-1.20) L 10/19/24 15:30 Glucose 110 mg/dL (70-99) H 10/19/24 15:30 10/19/24 TSH 0.20 uIU/mL (0.358-3.74) L 11/03/23 08:00 07/12/19 COAG PT 19.0 SECONDS (11.7-14.9) H 10/12/24 04:05 09/26 11/19 Pre-Assessment Diagnosis/Proposed Procedure Planned Operative Procedure(s): Robotic Cholecystectomy w/grams Anesthesia History Anesthesia History - heel painter: Anesthesia History - heel painter Hx Hospitalization Yes: 10/20 ACUTE 10/15/24 09:17 CHOLECYSTITS Any Problems With Anesthesia Yes 10/15/24 09:17 Cholinesterase deficiency No 10/15/24 09:17 You/Your Family Experience No 10/15/24 09:17 fever (hyperthermia) with Relationship Recent Exposure to Contagious No 10/26/24 12:03 Disease Does patient have nerve No 10/15/24 09:17 stimulator Patient instructed to have device shut off --Does patient have Pacemaker No 10/26/24 12:03 or ICD? When Was Last Pacemaker Check QUESTION #4 FULL TEXT: You/Your Family Experience fever (hyperthermia) with Anesthesia Last Oral Intake Last Oral intake: Last Oral Intake NPO since 21:00 10/26/24 12:03 Meds taken in AM with sips of Yes 10/26/24 12:03 water? Meds patient instructed to take am of surgery PONV PONV - heel painter: PONV - heel painter Female No 10/15/24 09:17 HX of Motion Sickness No 10/15/24 09:17 HX of N/V After Surgery No 10/15/24 09:17 Non-Smoker Yes 10/15/24 09:17 Duration of Surgery greater Yes 10/15/24 09:17 than 60 minutes Number of Risk Factors 2 10/15/24 09:17 PONV Score Moderate Risk 10/15/24 09:17 Height & Weight Height & Weight: Anesthesia: Height & Weight Height 5 ft 11 in 10/26/24 12:03 Weight: 98 kg 10/26/24 12:03 Body Mass Index (BMI) 30.1 10/26/24 12:03 Respiratory Assessment Respiratory Assessment - heel painter: Respiratory Tract Infection Hx - heel painter Hx Respiratory Tract Infection No 10/15/24 09:17 STOP Sleep Apnea STOP Sleep Apnea - heel painter: STOP Sleep Apnea - heel painter Hx Hypertension Yes: PER PT, CONTROLLED ON 10/15/24 09:17 MEDS Hx Sleep Apnea No 10/15/24 09:17 CPAP BIPAP Do you snore loudly (louder No 10/15/24 09:17 than talking or can be heard Do you often feel tired/ No 10/15/24 09:17 fatigued/ sleepy during daytime? Has anyone observed you stop No 10/15/24 09:17 breathing during sleep? STOP Results Negative 10/15/24 09:17 QUESTION #5 FULL TEXT : Do you snore loudly (louder than talking or can be heard through closed doors)? Tobacco Use History Tobacco Use History - heel painter: Tobacco Use History - heel painter Tobacco Use Smoking Status Former smoker 10/15/24 09:17 Hx Tobacco Use Yes: snuff 10/15/24 09:17 Years Smoking Packs Smoked per Day Smoking Cessation Date was Yes - quit smoking within 15 10/15/24 09:17 within the last 15 years years Hx Smoking Cessation Date Hx Smoking Cessation Counseling Hematologic Medial History Hematologic Hx - heel painter: Hematologic Medical Hx - swage tender Hx of Blood Transfusion Yes 10/15/24 09:17 Hx of Transfusion in last 3 No 10/15/24 09:17 Months Date of Last Transfusion (if within last 3 months) Ever experience any problems No 10/15/24 09:17 with transfusion(s)? Specify any problems Hx of Preganancy in last 3 N/A 10/15/24 09:17 Months Nurse Filling Out Transfusion MGRIFFITH 10/15/24 09:17 & Questions: Date: 10/15/24 10/15/24 09:17 Time: :10/15/24 09:17 Patient unable to answer at this time (ie. confused, unrespo /Reproduction History /Reproductive History - heel painter: /Reproductive Hx- heel painter Hx Now Gestational Age (in weeks): EDC: Hx Hx Para Hx Section SAB No 08/15/23 14:51 Active Medications Active Medications: Current Medications Generic Name Dose Route Start Last Admin Trade Name Freq PRN Reason Stop Dose Admin Cefotetan Disodium 2 gm/ 100 mls @ 200 mls/hr 10/26/24 13:00 Sodium Chloride IV 10/26/24 13:29 INTRAOP ONE Lactated Ringer's 1,000 mls @ 15 mls/hr 10/26/24 11:45 10/26/24 12:27 IV 15 mls/hr .Q48H MILA Administration Sodium Chloride 10 - 40 ml 10/26/24 11:46 0.9% Saline Lock 10 Ml Syringe IV UD PRN Port-a-Cath (VAD)/R Port Flush Sodium Chloride 10 - 40 ml 10/26/24 11:46 0.9 % Nacl (Sterile) Posiflush 10 Ml IV UD PRN Port access or dressing change PFS Medical History Cancer Ambulates with cane Former smoker Chronic cough History of Holter monitoring Anxiety Hoarseness of voice Bilateral lower extremity edema Encounter for chemotherapy management History of steroid therapy Arthritis Gastric reflux Patient uses snuff Shortness of breath on exertion History of pain when walking History of edema History of atrial fibrillation Encounter for education Metastasis to bone Regional lymph node metastasis present Rising PSA following treatment for malignant neoplasm of prostate Prostate cancer metastatic to intraabdominal lymph node Edema History of COVID-19 Wears hearing aid Wears contact lenses Alcohol use DVT (deep venous thrombosis) Back pain Injury of head and neck Migraine headache History of echocardiogram History of stress test Cardiology follow-up encounter Hypertension Prostate cancer Acute on chronic diastolic (congestive) heart failure Paroxysmal supraventricular tachycardia Asthma Paroxysmal atrial flutter (08/18/18) Intermittent palpitations Obesity Home Medications ?Medication ?Instructions ?Recorded ?Last Taken ?Type albuterol sulfate 90 mcg/actuation 2 puff inhalation Q 6H PRN Asthma 09/07/18 11/15/20 06:00 History aerosol inhaler (Ventolin HFA) albuterol sulfate 2.5 mg/3 mL 1.25 mg inhalation Q6H P RN PRN 06/28/20 08/25/23 History (0.083 %) solution for nebulization Asthma montelukast 10 mg tablet 10 mg PO QHS asthma 07/05/20 10/25/24 History calcium carbonate (Calcium 600) 600 mg PO DAILY supple ment 08/15/23 10/25/24 History fluticasone 100 mcg-salmeterol 50 1 inh inhalation Q12 H asthma 10/06/23 10/26/24 History mcg/dose blistr powdr for inhalation (Advair Diskus) omeprazole 20 mg tablet,delayed 20 mg PO QHS gerd 12/1910/25/24 History release flecainide 100 mg tablet 100 mg PO BID bp #180 TABLET S 08/03/24 10/25/24 Rx leuprolide (3 month) 22.5 mg (3 22.5 mg subcut .q 3 mo nth hormone 08/03/24 Unknown History month) subcutaneous syringe (Mompery) metoprolol succinate 100 mg 100 mg PO DAILY bp #90 tab s 08/03/24 10/25/24 Rx tablet,extended release 24 hr rivaroxaban 20 mg tablet 20 mg PO QHS BLOOD THINNER # 90 tabs 08/03/24 10/22/24 Rx albuterol sulfate 1.25 mg/3 mL 1.25 mg inhalation 4X/D AY PRN PRN 10/11/24 Unknown History solution for nebulization shortness of breath or wheez ing tizanidine 4 mg tablet 4 mg PO TID PRN muscle spast icity 10/11/24 10/21/24 History oxycodone 5 mg capsule 5 mg PO Q6H PRN pain 3 days #5 caps 10/12/24 Unknown Rx cefdinir 300 mg capsule 300 mg PO BID 10/26/2410/26 History Allergy/AdvReac Type Severity Reaction Status Date / Time ciprofloxacin (From Cipro) Allergy Unknown swelling Verified 10/26/24 12:00 Family History Mother CAD (coronary artery disease) Kidney disease Father Heart disease CHF Lung cancer Uncle Myocardial infarction Paternal from [place] age 38 Surgical History History of surgery History of cardiac catheterization Hx of cystoscopy History of prostatectomy (07/05/20) History of amputation of finger of right hand History of left inguinal hernia repair History of bilateral inguinal hernia repair History of arthroscopy of left knee Social History household members: spouse current occupational status: employed Smoking Status: Former smoker Smokeless tobacco user: chewing tobacco and other alcohol intake: current alcohol intake frequency: a few times a week Alcohol type: beer details: 12 pack or more in a week substance use type: does not use caffeine: No Review of Systems (Anesthesia) ROS Narrative System reviewed and no additional complaints, except as documented. Physical Exam Const alert and oriented x3 HEENT HEENT Narrative: hoarse voice Chest Chest Narrative: port right chest Resp normal respiratory effort Cardio regular rate 10/26/24 1321 <Electronically signed by Erasto Jordan> Date _ Erasto Torres MD Cosigner Signature: Date CC: ~ Signed [facility] Work Phone: 1(858) 758-915807-01-2025 History and physical note Author [facility] Note Date/Time October 26, 2024 12:34 pm [facility] Medical Records Department [address] [place] [address] History & Physical Exam 10/26/24 1233 MR#: [id number] Acct: [id number] Name: DANNIE EDMONDSON Rep #:[id number] : 1960 63 From: Kitty Pruett MD PCP: Dr. Carlitos Brewer, DO Status:[facility] Location: [place] [address] History and Physical Date of Admission: 10/26/24 Date of Service: 10/20/24 MR#: [id number] Acct: [id number] Name: DANNIE EDMONDSON Rep #: [id number] : 1960 Provider: Dr. Kitty Pruett MD Age/Sex: 63/M Location: [facility] Status: Signed Intake Vital Signs 10/11/2512:52 10/20/2515:25 Height 5 ft 11 in 5 ft 11 in Weight: 224 lb 4 oz BMI 31.2 BP 119/79 Blood Pressure Location Lt brachial Position Sitting Respiration 18 Pulse 69 Pulse Source Monitor Temp 97.3 F L Pulse Oximetry (%) 93 Oxygen Delivery Method room air Intake Visit Reasons: CHECK SUKHDEV DRAIN Chief Complaint: Metastatic prostate cancer Allergies ciprofloxacin (From Cipro) Allergy (Unknown, Verified 10/20/24 13:33) swelling Medications ?Medication ?Instructions ?Recorded ?Confirmed ?Type albuterol sulfate 90 mcg/actuation 2 puff inhalation Q6H PRN Asthma 9 10/20/24 History aerosol inhaler (Ventolin HFA) albuterol sulfate 2.5 mg/3 mL 1.25 mg inhalation Q6H PRN PRN 06/28/20 10/20/24 History (0.083 %) solution for nebulization Asth ma montelukast 10 mg tablet 10 mg PO QHS asthma 07/05/20 10/20/24 Hi story calcium carbonate (Calcium 600) 600 mg PO DAILY supplement 08/15/23/09/19 History fluticasone 100 mcg-salmeterol 50 1 inh inhalation Q12H asthma 10/06/23 History mcg/dose blistr powdr for inhalation (Advair Diskus) omeprazole 20 mg tablet,delayed 20 mg PO QHS gerd 11/03/23 10/20/24 Hist ory release flecainide 100 mg tablet 100 mg PO BID bp #180 TABLETS 08/03/24 0 10/20/24 Rx leuprolide (3 month) 22.5 mg (3 22.5 mg subcut .q 3 month hormone 10/20/24 History month) subcutaneous syringe (Eligard) metoprolol succinate 100 mg 100 mg PO DAILY bp #90 tabs 08/03/24 Rx tablet,extended release 24 hr rivaroxaban 20 mg tablet 20 mg PO QHS BLOOD THINNER #90 tabs 04/0 12/2010/20/24 Rx albuterol sulfate 1.25 mg/3 mL 1.25 mg inhalation 4X/DAY PRN PRN 10/20/24 History solution for nebulization shortness of breath or wheezing tizanidine 4 mg tablet 4 mg PO TID PRN muscle spasticity 10/20/24 History oxycodone 5 mg capsule 5 mg PO Q6H PRN pain 3 days #5 caps 09/2610/20/24 Rx doxycycline hyclate 100 mg capsule 100 mg PO BID 10/19/24 10/20/24 History PFSH Medical History Cancer Ambulates with cane Former smoker Chronic cough History of Holter monitoring Anxiety Hoarseness of voice Bilateral lower extremity edema Encounter for chemotherapy management History of steroid therapy Arthritis Gastric reflux Patient uses snuff Shortness of breath on exertion History of pain when walking History of edema History of atrial fibrillation Encounter for education Metastasis to bone Regional lymph node metastasis present Rising PSA following treatment for malignant neoplasm of prostate Prostate cancer metastatic to intraabdominal lymph node Edema History of COVID-19 Wears hearing aid Wears contact lenses Alcohol use DVT (deep venous thrombosis) Back pain Injury of head and neck Migraine headache History of echocardiogram History of stress test Cardiology follow-up encounter Hypertension Prostate cancer Acute on chronic diastolic (congestive) heart failure Paroxysmal supraventricular tachycardia Asthma Paroxysmal atrial flutter (08/18/18) Intermittent palpitations Obesity Surgical History History of surgery History of cardiac catheterization Hx of cystoscopy History of prostatectomy (07/05/20) History of amputation of finger of right hand History of left inguinal hernia repair History of bilateral inguinal hernia repair History of arthroscopy of left knee Family History Mother CAD (coronary artery disease) Kidney diseaseFather Heart disease CHF Lung cancerUncle Myocardial infarction Paternal from [place] age 38 Social History household members: spouse current occupational status: employed Smoking Status: Former smoker Smokeless tobacco user: chewing tobacco and other alcohol intake: current alcohol intake frequency: a few times a week Alcohol type: beer details: 12 pack or more in a week substance use type: does not use caffeine: No HPI HPI HPI: 63-year-old male presents for follow-up status post cholecystostomy tube placement/hospitalization for acute cholecystitis. Patient states close he was putting out about 360 cc/day yellowish in color currently. Patient is tolerating diet and having bowel function. Patient did go to the ER due to Ischium shortness of breath at [facility] had a CTA of the chest which wasnegative for PE question possible pneumonia was started on antibiotics?doxycycline. ROS Gastro Gastrointestinal: No abdominal pain, No nausea or vomiting, No acid reflux and Yes gallbladder problem Exam Const General: cooperative, healthy appearing, comfortable and no acute distress HENMT Head: normocephalic and atraumatic Neck Neck: supple Resp Effort & Inspection: normal respiratory effort Cardio Rate: regular rate GI Inspection: non-distended Palpation: soft and nontender Other: Cholecystostomy tube in place?bilious drainage Skin General: no rashes or lesions noted Neuro General: CN's II-XI intact bilaterally Extrem General: normal to inspection Psych Mental Status: mental status grossly normal Attitude: cooperative Assessment and Plan Assessment and Plan (1) H/O insertion of cholecystostomy tube: Status: Acute (2) Acute cholecystitis: Status: Acute (3) Acute cholecystitis due to biliary calculus: Status: Acute Plan Will have patient hold his Xarelto for 3 days prior to surgery on 10/26/2024 Reviewed the anatomy with the patient and discussed the procedure: Robotic assisted laparoscopic cholecystectomy with possible cholangiograms, possible open. Review risks including but not limited to bleeding, infection, hernia, bile leak, retained gallstones requiring another procedure ERCP- Endoscopic Retrograde Cholangiopancreatography, injury to another organ (bile ducts, commonbile duct, small bowel, etc.) and conversion to an open procedure. All questionswere answered. Kitty Pruett M.D. Pager: [phone] [facility] [address] [place] [address], [facility], [address] [place] [address] Office: [phone] Coding Level of Care Code Off vis,est,level 3 Diagnoses H/O insertion of cholecystostomy tube Z98.890 Acute cholecystitis K81.0 Acute cholecystitis due to biliary calculus K80.00 10/22/24 0800 <Electronically signed by Kitty Pruett MD> Date Kitty Pruett MD 10/26/24 1233 <Electronically signed by Kitty Pruett MD> Cosigner Signature (if applicable): CC: Dr. Carlitos Brewer DO; Dr. Kitty Pruett MD~ Signed ADDENDUM by Dr. Kitty Pruett MD on 10/26/24 at 1234 Addendum I have examined the patient and the H&P has been reviewed. There are no clinicalchanges since date of exam. 10/26/24 1234<Electronically signed by Kitty Pruett MD> Cosigner Signature (if applicable): cc: Dr. Carlitos Brewer DO; Dr. Kitty Pruett MD ~* Signed [facility] Work Phone: [phone]) 283-246407-01-2025 Consult note [facility] Medical Records Department [address] [place] [address] Pre-Anesthesia Evaluation 10/26/24 1314 MR#: [id number] Acct: [id number] Name: DANNIE EDMONDSON Rep #:[id number] : 1960 63 From: Erasto Torres MD PCP: Dr. Carlitos Brewer DO Status:REG SDC Y Race: C Location: [place] [address] ASA Classification* ASA Classification ASA Classification: 3 (patient did not take flecanide or metoprolol this morning, we will give his morning dose of flecanide in preop. discussed risk of perioperative arrhythmias ) Assessment & Plan Anesthesia* Anesthesia Assessment Anesthesia Assessment: Discussed sedation and/or anesthesia options, risks, benefits, and alternatives with patient/parents/legal guardian/POA. Questions invited. The patient/parents/legal guardian/POA seems to understand and agrees to proceedwith anesthesia plan. Reviewed the physical assessment, medical history, allergy history and patient home medications list prior to surgery/procedure/anesthetic and documented any changes. Performed airway and anesthesia risk assessments. Anesthesia Type Anesthesia Type: General (GA with ETT) History Source History Obtained from:: Patient, Chart and Significant Other Anesthesia Focused Assessment* Temperature: 97.2 F Pulse Rate: 79 Blood Pressure: 117/77 Respiratory Rate: 18 Pulse Ox: 96 Oxygen Delivery Method: Room Air Airway Assessment Mouth opens: 2 cm Mallampati Score: II Teeth Condition: Intact Labs Anesthesia Preop lab: CBC WBC 3.5 K/mm3 (4.4-11.0) L 10/19/24 15:30 10/19/24 RBC 3.51 M/mm3 (4.6-6.2) L 10/19/24 15:30 10/19/24 Hgb 9.7 g/dL (13.0-16.5) L 10/19/24 15:30 10/19/24 Hct 30.1 % (40-54) L 10/19/24 15:30 10/19/24 Plt Count 351 K/mm3 (150-450) 10/19/24 15:30 10/19/24 CHEMISTRY Potassium 4.0 mmol/L (3.3-5.1) 10/19/24 15:30 10/19/24 Sodium 136 mmol/L (133-145) 10/19/24 15:30 10/19/24 BUN 17 mg/dL (4-19) 10/19/24 15:30 10/19/24 Creatinine 0.59 mg/dL (0.70-1.20) L 10/19/24 15:30 Glucose 110 mg/dL (70-99) H 10/19/24 15:30 10/19/24 TSH 0.20 uIU/mL (0.358-3.74) L 11/03/23 08:00 07/0 12/19 COAG PT 19.0 SECONDS (11.7-14.9) H 10/12/24 04:05 09/26 11/19 Pre-Assessment Diagnosis/Proposed Procedure Planned Operative Procedure(s): Robotic Cholecystectomy w/grams Anesthesia History Anesthesia History - heel painter: Anesthesia History - heel painter Hx Hospitalization Yes: 10/20 ACUTE 10/15/24 09:17 CHOLECYSTITS Any Problems With Anesthesia Yes 10/15/24 09:17 Cholinesterase deficiency No 10/15/24 09:17 You/Your Family Experience No 10/15/24 09:17 fever (hyperthermia) with Relationship Recent Exposure to Contagious No 10/26/24 12:03 Disease Does patient have nerve No 10/15/24 09:17 stimulator Patient instructed to have device shut off --Does patient have Pacemaker No 10/26/24 12:03 or ICD? When Was Last Pacemaker Check QUESTION #4 FULL TEXT: You/Your Family Experience fever (hyperthermia) with Anesthesia Last Oral Intake Last Oral intake: Last Oral Intake NPO since 21:00 10/26/24 12:03 Meds taken in AM with sips of Yes 10/26/24 12:03 water? Meds patient instructed to take am of surgery PONV PONV - heel painter: PONV - heel painter Female No 10/15/24 09:17 HX of Motion Sickness No 10/15/24 09:17 HX of N/V After Surgery No 10/15/24 09:17 Non-Smoker Yes 10/15/24 09:17 Duration of Surgery greater Yes 10/15/24 09:17 than 60 minutes Number of Risk Factors 2 10/15/24 09:17 PONV Score Moderate Risk 10/15/24 09:17 Height & Weight Height & Weight: Anesthesia: Height & Weight Height 5 ft 11 in 10/26/24 12:03 Weight: 98 kg 10/26/24 12:03 Body Mass Index (BMI) 30.1 10/26/24 12:03 Respiratory Assessment Respiratory Assessment - heel painter: Respiratory Tract Infection Hx - heel painter Hx Respiratory Tract Infection No 10/15/24 09:17 STOP Sleep Apnea STOP Sleep Apnea - heel painter: STOP Sleep Apnea - heel painter Hx Hypertension Yes: PER PT, CONTROLLED ON 10/15/24 09:17 MEDS Hx Sleep Apnea No 10/15/24 09:17 CPAP BIPAP Do you snore loudly (louder No 10/15/24 09:17 than talking or can be heard Do you often feel tired/ No 10/15/24 09:17 fatigued/ sleepy during daytime? Has anyone observed you stop No 10/15/24 09:17 breathing during sleep? STOP Results Negative 10/15/24 09:17 QUESTION #5 FULL TEXT : Do you snore loudly (louder than talking or can be heard through closeddoors)? Tobacco Use History Tobacco Use History - heel painter: Tobacco Use History - heel painter Tobacco Use Smoking Status Former smoker 10/15/24 09:17 Hx Tobacco Use Yes: snuff 10/15/24 09:17 Years Smoking Packs Smoked per Day Smoking Cessation Date was Yes - quit smoking within 15 10/15/24 09:17 within the last 15 years years Hx Smoking Cessation Date Hx Smoking Cessation Counseling Hematologic Medial History Hematologic Hx - heel painter: Hematologic Medical Hx - swage tender Hx of Blood Transfusion Yes 10/15/24 09:17 Hx of Transfusion in last 3 No 10/15/24 09:17 Months Date of Last Transfusion (if within last 3 months) Ever experience any problems No 10/15/24 09:17 with transfusion(s)? Specify any problems Hx of Preganancy in last 3 N/A 10/15/24 09:17 Months Nurse Filling Out Transfusion MGRIFFITH 10/15/24 09:17 & Questions: Date: 10/15/24 10/15/24 09:17 Time: 09:10/15/24 09:17 Patient unable to answer at this time (ie. confused, unrespo /Reproduction History /Reproductive History - heel painter: /Reproductive Hx- heel painter Hx Now Gestational Age (in weeks): EDC: Hx Hx Para Hx Section SAB No 08/15/23 14:51 Active Medications Active Medications: Current Medications Generic Name Dose Route Start Last Admin Trade Name Freq PRN Reason Stop Dose Admin Cefotetan Disodium 2 gm/ 100 mls @ 200 mls/hr 10/26/24 13:00 Sodium Chloride IV 10/26/24 13:29 INTRAOP ONE Lactated Ringer's 1,000 mls @ 15 mls/hr 10/26/24 11:45 10/26/24 12:27 IV 15 mls/hr .Q48H MILA Administration Sodium Chloride 10 - 40 ml 10/26/24 11:46 0.9% Saline Lock 10 Ml Syringe IV UD PRN Port-a-Cath (VAD)/R Port Flush Sodium Chloride 10 - 40 ml 10/26/24 11:46 0.9 % Nacl (Sterile) Posiflush 10 Ml IV UD PRN Port access or dressing change PFSH Medical History Cancer Ambulates with cane Former smoker Chronic cough History of Holter monitoring Anxiety Hoarseness of voice Bilateral lower extremity edema Encounter for chemotherapy management History of steroid therapy Arthritis Gastric reflux Patient uses snuff Shortness of breath on exertion History of pain when walking History of edema History of atrial fibrillation Encounter for education Metastasis to bone Regional lymph node metastasis present Rising PSA following treatment for malignant neoplasm of prostate Prostate cancer metastatic to intraabdominal lymph node Edema History of COVID-19 Wears hearing aid Wears contact lenses Alcohol use DVT (deep venous thrombosis) Back pain Injury of head and neck Migraine headache History of echocardiogram History of stress test Cardiology follow-up encounter Hypertension Prostate cancer Acute on chronic diastolic (congestive) heart failure Paroxysmal supraventricular tachycardia Asthma Paroxysmal atrial flutter (08/18/18) Intermittent palpitations Obesity Home Medications ?Medication ?Instructions ?Recorded ?Last Taken ?Type albuterol sulfate 90 mcg/actuation 2 puff inhalation Q 6H PRN Asthma 09/07/18 11/15/20 06:00 History aerosol inhaler (Ventolin HFA) albuterol sulfate 2.5 mg/3 mL 1.25 mg inhalation Q6H P RN PRN 06/28/20 08/25/23 History (0.083 %) solution for nebulization Asthma montelukast 10 mg tablet 10 mg PO QHS asthma 07/05/20 10/25/24 History calcium carbonate (Calcium 600) 600 mg PO DAILY supple ment 08/15/23 10/25/24 History fluticasone 100 mcg-salmeterol 50 1 inh inhalation Q12 H asthma 10/06/23 10/26/24 History mcg/dose blistr powdr for inhalation (Advair Diskus) omeprazole 20 mg tablet,delayed 20 mg PO QHS gerd 0712/1910/25/24 History release flecainide 100 mg tablet 100 mg PO BID bp #180 TABLET S 08/03/24 10/25/24 Rx leuprolide (3 month) 22.5 mg (3 22.5 mg subcut .q 3 mo nth hormone 08/03/24 Unknown History month) subcutaneous syringe (Justino) metoprolol succinate 100 mg 100 mg PO DAILY bp #90 tab s 08/03/24 10/25/24 Rx tablet,extended release 24 hr rivaroxaban 20 mg tablet 20 mg PO QHS BLOOD THINNER # 90 tabs 08/03/24 10/22/24 Rx albuterol sulfate 1.25 mg/3 mL 1.25 mg inhalation 4X/D AY PRN PRN 10/11/24 Unknown History solution for nebulization shortness of breath or wheez ing tizanidine 4 mg tablet 4 mg PO TID PRN muscle spast icity 10/11/24 10/21/24 History oxycodone 5 mg capsule 5 mg PO Q6H PRN pain 3 days #5 caps 10/12/24 Unknown Rx cefdinir 300 mg capsule 300 mg PO BID 10/26/2410/26 History Allergy/AdvReac Type Severity Reaction Status Date / Time ciprofloxacin (From Cipro) Allergy Unknown swelling Verified 10/26/24 12:00 Family History Mother CAD (coronary artery disease) Kidney disease Father Heart disease CHF Lung cancer Uncle Myocardial infarction Paternal from [place] age 38 Surgical History History of surgery History of cardiac catheterization Hx of cystoscopy History of prostatectomy (07/05/20) History of amputation of finger of right hand History of left inguinal hernia repair History of bilateral inguinal hernia repair History of arthroscopy of left knee Social History household members: spouse current occupational status: employed Smoking Status: Former smoker Smokeless tobacco user: chewing tobacco and other alcohol intake: current alcohol intake frequency: a few times a week Alcohol type: beer details: 12 pack or more in a week substance use type: does not use caffeine: No Review of Systems (Anesthesia) ROS Narrative System reviewed and no additional complaints, except as documented. Physical Exam Const alert and oriented x3 HEENT HEENT Narrative: hoarse voice Chest Chest Narrative: port right chest Resp normal respiratory effort Cardio regular rate 10/26/24 1321 D> Date _ Erasto Meade Signature: Date CC: ~ Signed [facility]07-01-2025 History and physical note [facility] Medical Records Department [address] [place] [address] History & Physical Exam 10/26/24 1233 MR#: [id number] Acct: [id number] Name: DANNIE EDMONDSON Rep #:[id number] : 1960 63 From: Kitty Pruett MD PCP: Dr. Carlitos Brewer, Status:[facility] Location: [place] [address] History and Physical Date of Admission: 10/26/24 Date of Service: 10/20/24 MR#: [id number] Acct: [id number] Name: DANNIE EDMONDSON Rep #: [id number] : 1960 Provider: Dr. Kitty Pruett MD Age/Sex: 63/M Location: [facility] Status: Signed Intake Vital Signs 10/11/2512:52 10/20/2515:25 Height 5 ft 11 in 5 ft 11 in Weight: 224 lb 4 oz BMI 31.2 BP 119/79 Blood Pressure Location Lt brachial Position Sitting Respiration 18 Pulse 69 Pulse Source Monitor Temp 97.3 F L Pulse Oximetry (%) 93 Oxygen Delivery Method room air Intake Visit Reasons: CHECK SUKHDEV DRAIN Chief Complaint: Metastatic prostate cancer Allergies ciprofloxacin (From Cipro) Allergy (Unknown, Verified 10/20/24 13:33) swelling Medications ?Medication ?Instructions ?Recorded ?Confirmed ?Type albuterol sulfate 90 mcg/actuation 2 puff inhalation Q6H PRN Asthma 9 10/20/24 History aerosol inhaler (Ventolin HFA) albuterol sulfate 2.5 mg/3 mL 1.25 mg inhalation Q6H PRN PRN 06/28/20 10/20/24 History (0.083 %) solution for nebulization Asth ma montelukast 10 mg tablet 10 mg PO QHS asthma 07/05/20 10/20/24 Hi story calcium carbonate (Calcium 600) 600 mg PO DAILY supplement 08/15/23 06/09/19 History fluticasone 100 mcg-salmeterol 50 1 inh inhalation Q12H asthma 10/06/23 History mcg/dose blistr powdr for inhalation (Advair Diskus) omeprazole 20 mg tablet,delayed 20 mg PO QHS gerd 11/03/23 10/20/24 Hist ory release flecainide 100 mg tablet 100 mg PO BID bp #180 TABLETS 08/03/24 0 10/20/24 Rx leuprolide (3 month) 22.5 mg (3 22.5 mg subcut .q 3 month hormone 10/20/24 History month) subcutaneous syringe (Eligard) metoprolol succinate 100 mg 100 mg PO DAILY bp #90 tabs 08/03/24 Rx tablet,extended release 24 hr rivaroxaban 20 mg tablet 20 mg PO QHS BLOOD THINNER #90 tabs 12/2010/20/24 Rx albuterol sulfate 1.25 mg/3 mL 1.25 mg inhalation 4X/DAY PRN PRN 10/20/24 History solution for nebulization shortness of breath or wheezing tizanidine 4 mg tablet 4 mg PO TID PRN muscle spasticity 10/20/24 History oxycodone 5 mg capsule 5 mg PO Q6H PRN pain 3 days #5 caps 09/2610/20/24 Rx doxycycline hyclate 100 mg capsule 100 mg PO BID 10/19/24 10/20/24 History PFSH Medical History Cancer Ambulates with cane Former smoker Chronic cough History of Holter monitoring Anxiety Hoarseness of voice Bilateral lower extremity edema Encounter for chemotherapy management History of steroid therapy Arthritis Gastric reflux Patient uses snuff Shortness of breath on exertion History of pain when walking History of edema History of atrial fibrillation Encounter for education Metastasis to bone Regional lymph node metastasis present Rising PSA following treatment for malignant neoplasm of prostate Prostate cancer metastatic to intraabdominal lymph node Edema History of COVID-19 Wears hearing aid Wears contact lenses Alcohol use DVT (deep venous thrombosis) Back pain Injury of head and neck Migraine headache History of echocardiogram History of stress test Cardiology follow-up encounter Hypertension Prostate cancer Acute on chronic diastolic (congestive) heart failure Paroxysmal supraventricular tachycardia Asthma Paroxysmal atrial flutter (08/18/18) Intermittent palpitations Obesity Surgical History History of surgery History of cardiac catheterization Hx of cystoscopy History of prostatectomy (07/05/20) History of amputation of finger of right hand History of left inguinal hernia repair History of bilateral inguinal hernia repair History of arthroscopy of left knee Family History Mother CAD (coronary artery disease) Kidney diseaseFather Heart disease CHF Lung cancerUncle Myocardial infarction Paternal from [place] age 38 Social History household members: spouse current occupational status: employed Smoking Status: Former smoker Smokeless tobacco user: chewing tobacco and other alcohol intake: current alcohol intake frequency: a few times a week Alcohol type: beer details: 12 pack or more in a week substance use type: does not use caffeine: No HPI HPI HPI: 63-year-old male presents for follow-up status post cholecystostomy tube placement/hospitalization for acute cholecystitis. Patient states close he was putting out about 360 cc/day yellowish in colorcurrently. Patient is tolerating diet and having bowel function. Patient did go to the ER due to Ischium shortness of breath at [facility] had a CTA of the chest which wasnegative for PE question possible pneumonia was started on antibiotics?doxycycline. ROS Gastro Gastrointestinal: No abdominal pain, No nausea or vomiting, No acid reflux and Yes gallbladder problem Exam Const General: cooperative, healthy appearing, comfortable and no acute distress HENKS Head: normocephalic and atraumatic Neck Neck: supple Resp Effort & Inspection: normal respiratory effort Cardio Rate: regular rate GI Inspection: non-distended Palpation: soft and nontender Other: Cholecystostomy tube in place?bilious drainage Skin General: no rashes or lesions noted Neuro General: CN's II-XI intact bilaterally Extrem General: normal to inspection Psych Mental Status: mental status grossly normal Attitude: cooperative Assessment and Plan Assessment and Plan (1) H/O insertion of cholecystostomy tube: Status: Acute (2) Acute cholecystitis: Status: Acute (3) Acute cholecystitis due to biliary calculus: Status: Acute Plan Will have patient hold his Xarelto for 3 days prior to surgery on 10/26/2024 Reviewed the anatomy with the patient and discussed the procedure: Robotic assisted laparoscopic cholecystectomy with possible cholangiograms, possible open. Review risks including but not limited tobleeding, infection, hernia, bile leak, retained gallstones requiring another procedure ERCP- Endoscopic Retrograde Cholangiopancreatography, injury to another organ (bile ducts, commonbile duct, small bowel, etc.) and conversion to an open procedure. All questionswere answered. Kitty Pruett M.D. Pager: [phone] [facility] [facility] [address] [place] [address], [address] [place] [address] Office: [phone] Coding Level of Care Code Off vis,est,level 3 Diagnoses H/O insertion of cholecystostomy tube Z98.890 Acute cholecystitis K81.0 Acute cholecystitis due to biliary calculus K80.00 10/22/24 0800 Date Kitty Pruett MD 10/26/24 1233 Cosigner Signature (if applicable): CC: Dr. Carlitos Brewer DO; Dr. Kitty Pruett MD~ Signed ADDENDUM by Dr. Kitty Pruett MD on 10/26/24 at 1234 Addendum I have examined the patient and the H&P has been reviewed. There are no clinicalchanges since date of exam. 10/26/24 1234 Cosigner Signature (if applicable): cc: Dr. Carlitos Brewer DO; Dr. 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 April 2020: Had an elevated screening PSA of 17, underwent TRUS guided prostate biopsy that showed an adenocarcinoma with the highest Rena Lara score being 10 (5+5). Staging showed no evidence for metastatic disease. June 2020: Patient underwent radical prostatectomy and lymph node dissection.? Pathology demonstrated Chuck 5+5 adenocarcinoma involving 85% of the gland, multifocal extraprostatic extension is identified involving the right, left posterior lateral and seminal vesicles.? Seminal vesicle invasion ispresent.? Perineural invasion is present.? Margin focally positive (2 mm right lateral margin), 2 lymph nodes were obtained and did not contain metastatic disease.? pT3b pN0 September 2020 due to persistently elevated residual PSA, patient completed PET scanwhich demonstrated increased radiopharmaceutical concentration noted in the lower pelvis in the region of the prostate bed, as well as the upper midline andright mid pelvic mesentery corresponding to soft tissue nodularity in his fulfills quantitative criteria for viable neoplasm. November - January 2021 underwent adjuvant radiation therapy consisting of 4500 cGy delivered in 25 fractions to the prostate bed and pelvis followed by boost consisting of 2520 cGy delivered in 14 fractions to the prostate bed.? This brought the total dose delivered to the prostate bed to 7020 cGy in 39 fractions. July 2021 PSMA PET demonstrated focal increased localized activity involving the retroperitoneum and presacral space.? Anterior to the sacrum there is an 8 mm nodule with abnormal activity with an SUV of 44.1.? There is a 9 mm lymph node between the lower IVC and aorta with an SUV of 43.6.? There is a lymph nodeinferior to the left renal vein with an SUV of 23.5.? No other evidence of disease appreciated. August?September 2021 received SBRT consisting of 3000 cGy in 5 fractions to the presacral adenopathy (4000cGy to GTV) And 4000 cGy delivered to the elective periaortic region with a simultaneous integrated boost of 5500 cGy delivered to the concerning lymph nodes. May 2022: Due to a rising PSMA PET CT: SKELETAL: Enhanced radiopharmaceutical is defined in the left proximal femur, the third and fifth lumbar vertebrae, the sacrum, the fourth thoracic vertebra, the left posterior second rib, the spinous process of the lower cervical spine, with a calculated maximal standard uptake value IMPRESSION: 1. ABNORMAL EXAMINATION INDICATIVE OF MALIGNANT VIABLE NEOPLASM. 2. Increased radiopharmaceutical concentration encountered in the lower midline pelvic mesentery fulfills quantitative criteria for viable neoplasm. (Eiber et al., Journal of Nuclear Medicine 59:469, 2018). 3. Enhanced tracer uptake noted in the osseous skeletal structures fulfills quantitative criteria for viable osseous neoplasia. 4. The increase in radiotracer uptake visualized the left anterior neck corresponding to soft tissue with fatty hilus is most consistent with reactive adenopathy. 5. Increased radiopharmaceutical distribution noted in the abdominal retroperitoneum in several locations does not fulfill quantitative criteria for malignant infiltration. July 2022 next generation sequence and genetic testing liquid at [facility]: No mutations identified. March 27, 2023 bone scan: IMPRESSION: 1. The increase in radiopharmaceutical defined in the fourth lumbar vertebra is most consistent with skeletal metastatic disease. Plain film radiography correlation is recommended. 2. Degenerative arthritis is defined in the bilateral shoulders, right and left knees, the midfoot bilaterally and the thoracic spine. March 28, 2023 chest abdomen and pelvis CT: IMPRESSION: Small hepatic cysts. Heterogeneous appearance of the lumbar vertebrae suggestive of possible metastasis. The patient is status post prostatectomy. June 24, 2023 bone scan: IMPRESSION: 1. The increase in tracer uptake redefined and newly apparent in the fourth lumbar vertebra and left acetabulum and left sacroiliac joint are consistent with isolated osteoblastic turnover attributed to the patient''s known diagnosis of primary prostate carcinoma. 2. Degenerative arthritis is defined in the bilateral shoulder and wrist articulations, the left hand, the ankles and midfoot bilaterally, both knees. July 04, 2023 lumbar spine MRI: IMPRESSION: Multiple osseous metastatic lesions of the lumbar spine and pelvis. Increased size of large right L3 transverse process metastasis with large extraosseous soft tissue component invading the right paraspinal soft tissues, right neuroforamina, and right spinal canal. Multilevel degenerative disc disease as above. July 04, 2023 pelvic MRI: IMPRESSION: Multiple metastatic lesions of the lower lumbar spine, left sacrum, right iliac, and left proximal femur mildly progressed from prior CT. January 19, 2024 bone scan: IMPRESSION: 1. The increase in tracer uptake defined in the third lumbar vertebra involving the right transverse process, the left acetabulum, the left posterior 10th and left anterior fourth ribs, the left proximal clavicle are commensurate with probable skeletal metastatic disease. 2. Degenerative changes are defined in the bilateral midfoot, both knee articulations, the shoulders bilaterally and upper cervical spine. 3. Overall compared to the previous whole body bone scintigraphy study dated 06/24/2023, there is apparent progression of skeletal metastatic disease. March 31, 2024 CT chest abdomen and pelvis: IMPRESSION: Multiple metastatic lesions in the thoracic, lumbar spine and pelvic bones not significantly changed since the previous study. No new metastatic lesions are seen. There is no evidence of pathologic fractures. May 25, 2024 lumbar spine MRI: IMPRESSION: 1. Diffuse osseous metastatic burden to the visualized thoracolumbar spine most conspicuous at the T12 vertebral body, posterior elements of L2 and L3 on the right, L4 vertebral body as well as the right iliacwing, progressive in the interval. 2. Heterogeneous mass arising from the transverse process arising from the L3 transverse process eccentric towards the right, as described 3. Multilevel spondylotic changes, without significant canal stenosis. There ismoderate neural foraminal stenosis at the L3-4 level on the right. May 25, 2024 pelvic MRI: IMPRESSION: Multifocal bony metastasis with corresponding enhancement, including however notlimited to, the transverse process of L3 on the right, L4 vertebral body, right iliac wing, bilateral sacral ala and left femoral head, with measurements provided above. May 28, 2024 bone scan: IMPRESSION: Interval worsening of osseous metastatic disease is seen within the left clavicle, ribs, and spine.Possible also worsening at the left acromion (versus asymmetric worsening degenerative changes). August 25, 2024 bone scan: IMPRESSION: Worsening metastatic disease. Radiation Treatment History: 1) 12/07/2020? 01/31/2021: Completed adjuvant radiation therapy consisting of 4500cGy delivered in 25fractions to the prostate bed and pelvis followed by boost consisting of 2520 cGy delivered in 14 fractions to the prostate bed.? This brought the total dose delivered to the prostate bed 2 7020 cGy in 39 fractions. 2) From 10/03/2021 ? 10/12/2021: Completed SBRT consisting of 3000 cGy in 5 fractions to the presacraladenopathy (4000 cGy to GTV) 3) From 09/25/2021 ? 10/22/2021: received 4000 cGy delivered to the elective periaortic region with asimultaneous integrated boost of 5500 cGy delivered to the concerning lymph nodes. 4) from 08/07/2023 - 08/14/2023: Received 2000 cGy delivered in 5 fractions to theL2-L3 disease including right paraspinal muscular mass and also 2000 cGy in 5 fractions delivered to the left proximal femur metastasis. 5) from 08/26/2024 - 09/01/2024: Received 2000 cGy delivered in 6 fractions to T12 and left shoulder. Systemic treatment summary: LHRH agonist started 2020?ongoing Xtandi added to LHRH agonist May 2022; partial remission then progression by May 2023 Taxotere August 31?December 14 (6 cycles) , 2023 Nubeqa (darolutamide) August -February, [place] then progression Zytiga prednisone February 2024-April 2024 progressive disease. Apalutamide May?July 2024 progressive disease. Interval History Hospitalized October 11-2024 with acute calculus cholecystitis, discharged on oral antibiotics andwith a cholecystostomy tube. Due to follow-up with surgeryJun to schedule elective cholecystectomy [facility] Medical History Cancer Ambulates with cane Former smoker Chronic cough History of Holter monitoring Anxiety Hoarseness of voice Bilateral lower extremity edema Encounter for chemotherapy management History of steroid therapy Arthritis Gastric reflux Patient uses snuff Shortness of breath on exertion History of pain when walking History of edema History of atrial fibrillation Encounter for education Metastasis to bone Regional lymph node metastasis present Rising PSA following treatment for malignant neoplasm of prostate Prostate cancer metastatic to intraabdominal lymph node Edema History of COVID-19 Wears hearing aid Wears contact lenses Alcohol use DVT (deep venous thrombosis) Back pain Injury of head and neck Migraine headache History of echocardiogram History of stress test Cardiology follow-up encounter Hypertension Prostate cancer Acute on chronic diastolic (congestive) heart failure Paroxysmal supraventricular tachycardia Asthma Paroxysmal atrial flutter (08/18/18) Intermittent palpitations Obesity Surgical History History of surgery History of cardiac catheterization Hx of cystoscopy History of prostatectomy (07/05/20) History of amputation of finger of right hand History of left inguinal hernia repair History of bilateral inguinal hernia repair History of arthroscopy of left knee Family History Mother CAD (coronary artery disease) Kidney disease Father Heart disease CHF Lung cancer Uncle Myocardial infarction Paternal from [place] age 38 Social History household members: spouse current occupational status: employed Smoking Status: Former smoker Smokeless tobacco user: chewing tobacco and other alcohol intake: current alcohol intake frequency: a few times a week Alcohol type: beer details: 12 pack or more in a week substance use type: does not use caffeine: No ROS Constitutional Constitutional: Reports systems reviewed and no addt'l complaints, except as documented, fatigue, weight loss and other Details: Active weight loss by changing diet to a plant-based diet ; Denies anorexia or fever(s) Eyes Eyes: Reports systems reviewed and no addt'l complaints, except as documented ENT HEENT: Reports systems reviewed and no addt'l complaints, except as documented; Denies mouth lesions Cardiovascular Cardiovascular: Reports systems reviewed and no addt'l complaints, except as documented; Denies chest pain with activity or edema Respiratory/Chest Respiratory/Chest: Reports systems reviewed and no addt'l complaints, except as documented; Denies cough or dyspnea Gastrointestinal Gastrointestinal: Reports systems reviewed and no addt'l complaints, except as documented and as per HPI; Denies abdominal pain, change in bowel habits, hematochezia or melena Genitourinary Genitourinary: Reports systems reviewed and no addt'l complaints, except as documented; Denies hematuria Musculoskeletal Musculoskeletal: Reports systems reviewed and no addt'l complaints, except as documented, back painand other Details: Pain has significantly improved following August 2024 radiation now down to Tylenolas needed ; Denies arthralgias, muscle spasms or muscle weakness Integumentary Integumentary: Reports systems reviewed and no addt'l complaints, except as documented; Denies new lesions Neurologic Neurologic: Reports systems reviewed and no addt'l complaints, except as documented; Denies focal weakness or paresthesias Psychiatric Psychiatric: Reports systems reviewed and no addt'l complaints, except as documented Endocrine Endocrinology: Reports systems reviewed and no addt'l complaints, except as documented Hematologic/Lymphatic Hematologic/Lymphatic: Reports systems reviewed and no addt'l complaints, exceptas documented Allergic/Immunologic Allergic/Immunologic: Reports systems reviewed and no addt'l complaints, except as documented Intake Vital Signs 10/11/24 07:05 10/19/24 16:18 10/19/24 16:25 Height 5 ft 10 in 5 ft 11 in 5 ft 11 in Weight: 101.718 kg BMI 31.2 BP 119/79 Blood Pressure Location Lt brachial Position Sitting Respiration 18 Pulse 69 Pulse Source Monitor Temp 97.3 F L Temperature Source Temporal Artery Pulse Oximetry (%) 93 Oxygen Delivery Method room air Intake Is patient in pain?: No Allergies ciprofloxacin (From Cipro) Allergy (Unknown, Verified 10/19/24 16:23) swelling Medications ?Medication ?Instructions ?Recorded ?Confirmed ?Type albuterol sulfate 90 mcg/actuation 2 puff inhalation Q 6H PRN Asthma 09/07/18 10/15/24 History aerosol inhaler (Ventolin HFA) albuterol sulfate 2.5 mg/3 mL 1.25 mg inhalation Q6H P RN PRN 06/28/20 10/15/24 History (0.083 %) solution for nebulization Asthma montelukast 10 mg tablet 10 mg PO QHS asthma 07/05/20 10/15/24 History calcium carbonate (Calcium 600) 600 mg PO DAILY supple ment 08/15/23 10/15/24 History fluticasone 100 mcg-salmeterol 50 1 inh inhalation Q12 H asthma 10/06/23 10/15/24 History mcg/dose blistr powdr for inhalation (Advair Diskus) omeprazole 20 mg tablet,delayed 20 mg PO QHS gerd 07/12/1910/15/24 History release flecainide 100 mg tablet 100 mg PO BID bp #180 TABLET S 08/03/24 10/15/24 Rx leuprolide (3 month) 22.5 mg (3 22.5 mg subcut .q 3 mo nth hormone 08/03/24 10/15/24 History month) subcutaneous syringe (Eligard) metoprolol succinate 100 mg 100 mg PO DAILY bp #90 tab s 08/03/24 10/15/24 Rx tablet,extended release 24 hr rivaroxaban 20 mg tablet 20 mg PO QHS BLOOD THINNER # 90 tabs 08/03/24 10/15/24 Rx albuterol sulfate 1.25 mg/3 mL 1.25 mg inhalation 4X/D AY PRN PRN 10/11/24 10/15/24 History solution for nebulization shortness of breath or wheez ing tizanidine 4 mg tablet 4 mg PO TID PRN muscle spast icity 10/11/24 10/15/24 History oxycodone 5 mg capsule 5 mg PO Q6H PRN pain 3 days #5 caps 10/12/24 10/15/24 Rx doxycycline hyclate 100 mg capsule 100 mg PO BID 10/1910/19/24 History Have you fallen in the past year?: No Central Venous Access Central Venous Access: Yes Port/PICC: Port Exam Physical Exam Narrative ECOG 1 Const alert, oriented x3 and no apparent distress General Appearance: cooperative and comfortable Coding Level of Care Code Off vis,est,level 3 Exam Problem Focused Diagnoses Prostate cancer C61 Regional lymph node metastasis present C77.9 Metastasis to bone C79.51 Assessment and Plan Assessment and Plan (1) Prostate cancer: Status: Chronic (2) Regional lymph node metastasis present: Status: Chronic (3) Metastasis to bone: Status: Chronic Plan 63-year-old male with castrate resistant metastatic prostate cancer; Chuck 10 status post radicalprostatectomy in June 2020, adjuvant pelvic radiation November - January 2021, additional radiation therapy to presacral and periaortic lymph nodes August - September 2021. He has received hormonal therapy with LHRH agonist (Eligard) since 2020, with Xtandi added in May 2022 after documentation of hormone refractoriness and metastasis to bone based on PSMA PET in May 2022. July 2022 next generation sequence and genetic testing liquid at [facility]: No mutations identified. He ha6 a rising PSA February 2023 which prompted medical oncology consultation at [facility]. Repeat imaging with bone scan and CT scans of the chest abdomen and pelvis, though comparison to PET/CT is somewhat limited, shows overall better metastaticdisease than when he started combined antiandrogen therapy in May 2022. The rising PSA signaling early relapse of the disease after the imp rovement and he remained symptom-free and no measurable disease on imaging. May 2023 reported new onset of low back pain and right-sided sciatica fora month or so, painimproved after medical treatment prescribed by pain management but only temporarily and therefore he received further palliative radiation to L2-L3 and left proximal fever in July 2023. Started systemic therapy with LHRH agonist plus Nubeqa (darolutamide) August 2023 in addition to docetaxel (6 cycles August - November 2023) based on the ARASENS trial . Main toxicities encountered where cytopenias requiring growth factor support during chemotherapy salt and water retention attributed to Taxotere that required use of diuretics. He had a favorable response with PSA level down under 1. Bone scan (between May then December 2023) shows persistent, some improvement in the lumbar and left pelvis and new uptake in the ribs and clavicle. With continued upward trend in PSA and development of new bone lesions on bone scan of December 2023 patient androgen blockade treatment was changed to Zytigawith prednisone and to continue with LHRH agonist. However by April 2024 he continued to have relentlessly rising PSA and furtherworsening of bone scan. Hormonal therapy was switched to apalutamide (Erleada) May 2024. However, by July 2024 he is having increasing back pain and his PSA has gone up. At this time he has a castrate refractory metastatic prostate cancer. Chronic comorbid conditions: Asthma, paroxysmal atrial flutter on chronic anticoagulation. Plan: Based on NCCN guidelines and up-to-date review of systemic therapy of treatment of metastatic(M1) prostate cancer; 1. For castrate resistant metastatic prostate cancer advise systemic treatment with options being: a) Chemotherapy with cabazitaxel since he has been exposed to Taxotere previously. b) Refered to [facility] to be considered for radioligand therapy (radium 223 or lutetium 177); appointment is scheduled in early October 2024. 2. Continue LHRH agonist therapy long-term. 3. Continue bone supportive therapy with zoledronic acid every 12 weeks. 4. Elective imaging with a bone scan to update before upcoming chemotherapy. 5. He is under care of pain management and was refered to palliative. Patient was seen , impression and plan discussed. Follow-up after upcoming elective cholecystectomyand visit at [facility]. October 19, 2024 visit was virtual Jignesh Purcell MD [employer], [facility] Divisions of Medical Oncology & Hematology Department of Internal Medicine [place] [address] This note was generated using a voice recognition system software. Although itwas reviewed by the author prior to finalization, it may still contain incorrectwords, spelling, and punctuation that were not noted when reviewing prior to saving. If a clinically significant typo or inaccurately typed phrase is noted, please notify the author. Clinical Quality Measures Falls Risk Screening/Assistive Devices Have you fallen in the past year?: No 10/19/24 1646 eze MD> Date _ Jignesh Purcell MD Cosigner Signature: Date (if applicable) CC: Dr. Carlitos Brewer, DO ~ [facility]06-24-2025 Progress note Author Jignesh Purcell [facility] Note Date/Time October 19, 2024 4:46 pm [facility] [address] [address] OFFICE VISIT Date of Service: 10/19/24 1616 MR#: [id number] Acct: [id number] Name: DELVISDANNIE FLO Rep #: [id number] : 1960 From: Jignesh haro MD Age/Sex: 63/M [facility] Status: Signed HPI Subjective Date of Service 10/19/24 Chief Complaint Metastatic prostate cancer History of Present Illness 63-year-old male with metastatic castrate resistant prostate cancer seen in consultation February 2023 for further management. April 2020: Had an elevated screening PSA of 17, underwent TRUS guided prostate biopsy that showed an adenocarcinoma with the highest Rena Lara score being 10 (5+5). Staging showed no evidence for metastatic disease. June 2020: Patient underwent radical prostatectomy and lymph node dissection.? Pathology demonstrated Chuck 5+5 adenocarcinoma involving 85% of the gland, multifocal extraprostatic extension is identified involving the right, left posterior lateral and seminal vesicles.? Seminal vesicle invasion ispresent.? Perineural invasion is present.? Margin focally positive (2 mm right lateral margin), 2 lymph nodes were obtained and did not contain metastatic disease.? pT3b pN0 September 2020 due to persistently elevated residual PSA, patient completed PET scanwhich demonstrated increased radiopharmaceutical concentration noted in the lower pelvis in the region of the prostate bed, as well as the upper midline andright mid pelvic mesentery corresponding to soft tissue nodularity in his fulfills quantitative criteria for viable neoplasm. November - January 2021 underwent adjuvant radiation therapy consisting of 4500 cGy delivered in 25 fractions to the prostate bed and pelvis followed by boost consisting of 2520 cGy delivered in 14 fractions to the prostate bed.? This brought the total dose delivered to the prostate bed to 7020 cGy in 39 fractions. July 2021 PSMA PET demonstrated focal increased localized activity involving the retroperitoneum and presacral space.? Anterior to the sacrum there is an 8 mm nodule with abnormal activity with an SUV of 44.1.? There is a 9 mm lymph node between the lower IVC and aorta with an SUV of 43.6.? There is a lymph nodeinferior to the left renal vein with an SUV of 23.5.? No other evidence of disease appreciated. August?September 2021 received SBRT consisting of 3000 cGy in 5 fractions to the presacral adenopathy (4000 cGy to GTV) And 4000 cGy delivered to the elective periaortic region with a simultaneous integrated boost of 5500 cGy delivered to the concerning lymph nodes. May 2022: Due to a rising PSMA PET CT: SKELETAL: Enhanced radiopharmaceutical is defined in the left proximal femur, the third and fifth lumbar vertebrae, the sacrum, the fourth thoracic vertebra, the left posterior second rib, the spinous process of the lower cervical spine, with a calculated maximal standard uptake value IMPRESSION: 1. ABNORMAL EXAMINATION INDICATIVE OF MALIGNANT VIABLE NEOPLASM. 2. Increased radiopharmaceutical concentration encountered in the lower midline pelvic mesentery fulfills quantitative criteria for viable neoplasm. (Eiber et al., Journal of Nuclear Medicine 59:469, 2018). 3. Enhanced tracer uptake noted in the osseous skeletal structures fulfills quantitative criteria for viable osseous neoplasia. 4. The increase in radiotracer uptake visualized the left anterior neck corresponding to soft tissue with fatty hilus is most consistent with reactive adenopathy. 5. Increased radiopharmaceutical distribution noted in the abdominal retroperitoneum in several locations does not fulfill quantitative criteria for malignant infiltration. July 2022 next generation sequence and genetic testing liquid at [facility]: No mutations identified. March 27, 2023 bone scan: IMPRESSION: 1. The increase in radiopharmaceutical defined in the fourth lumbar vertebra is most consistent with skeletal metastatic disease. Plain film radiography correlation is recommended. 2. Degenerative arthritis is defined in the bilateral shoulders, right and left knees, the midfoot bilaterally and the thoracic spine. March 28, 2023 chest abdomen and pelvis CT: IMPRESSION: Small hepatic cysts. Heterogeneous appearance of the lumbar vertebrae suggestive of possible metastasis. The patient is status post prostatectomy. June 24, 2023 bone scan: IMPRESSION: 1. The increase in tracer uptake redefined and newly apparent in the fourth lumbar vertebra and left acetabulum and left sacroiliac joint are consistent with isolated osteoblastic turnover attributed to the patient''s known diagnosis of primary prostate carcinoma. 2. Degenerative arthritis is defined in the bilateral shoulder and wrist articulations, the left hand, the ankles and midfoot bilaterally, both knees. July 04, 2023 lumbar spine MRI: IMPRESSION: Multiple osseous metastatic lesions of the lumbar spine and pelvis. Increased size of large right L3 transverse process metastasis with large extraosseous soft tissue component invading the right paraspinal soft tissues, right neuroforamina, and right spinal canal. Multilevel degenerative disc disease as above. July 04, 2023 pelvic MRI: IMPRESSION: Multiple metastatic lesions of the lower lumbar spine, left sacrum, right iliac, and left proximal femur mildly progressed from prior CT. January 19, 2024 bone scan: IMPRESSION: 1. The increase in tracer uptake defined in the third lumbar vertebra involving the right transverse process, the left acetabulum, the left posterior 10th and left anterior fourth ribs, the left proximal clavicle are commensurate with probable skeletal metastatic disease. 2. Degenerative changes are defined in the bilateral midfoot, both knee articulations, the shoulders bilaterally and upper cervical spine. 3. Overall compared to the previous whole body bone scintigraphy study dated 06/24/2023, there is apparent progression of skeletal metastatic disease. March 31, 2024 CT chest abdomen and pelvis: IMPRESSION: Multiple metastatic lesions in the thoracic, lumbar spine and pelvic bones not significantly changed since the previous study. No new metastatic lesions are seen. There is no evidence of pathologic fractures. May 25, 2024 lumbar spine MRI: IMPRESSION: 1. Diffuse osseous metastatic burden to the visualized thoracolumbar spine most conspicuous at the T12 vertebral body, posterior elements of L2 and L3 on the right, L4 vertebral body as well as the right iliacwing, progressive in the interval. 2. Heterogeneous mass arising from the transverse process arising from the L3 transverse process eccentric towards the right, as described 3. Multilevel spondylotic changes, without significant canal stenosis. There ismoderate neural foraminal stenosis at the L3-4 level on the right. May 25, 2024 pelvic MRI: IMPRESSION: Multifocal bony metastasis with corresponding enhancement, including however notlimited to, the transverse process of L3 on the right, L4 vertebral body, right iliac wing, bilateral sacral ala and left femoral head, with measurements provided above. May 28, 2024 bone scan: IMPRESSION: Interval worsening of osseous metastatic disease is seen within the left clavicle, ribs, and spine. Possible also worsening at the left acromion (versus asymmetric worsening degenerative changes). August 25, 2024 bone scan: IMPRESSION: Worsening metastatic disease. Radiation Treatment History: 1) 12/07/2020? 01/31/2021: Completed adjuvant radiation therapy consisting of 4500cGy delivered in 25 fractions to the prostate bed and pelvis followed by boost consisting of 2520 cGy delivered in 14 fractions to the prostate bed.? This brought the total dose delivered to the prostate bed 2 7020 cGy in 39 fractions. 2) From 10/03/2021 ? 10/12/2021: Completed SBRT consisting of 3000 cGy in 5 fractions to the presacral adenopathy (4000 cGy to GTV) 3) From 09/25/2021 ? 10/22/2021: received 4000 cGy delivered to the elective periaortic region with a simultaneous integrated boost of 5500 cGy delivered to the concerning lymph nodes. 4) from 08/07/2023 - 08/14/2023: Received 2000 cGy delivered in 5 fractions to theL2-L3 disease including right paraspinal muscular mass and also 2000 cGy in 5 fractions delivered to the left proximal femur metastasis. 5) from 08/26/2024 - 09/01/2024: Received 2000 cGy delivered in 6 fractions to T12 and left shoulder. Systemic treatment summary: LHRH agonist started 2020?ongoing Xtandi added to LHRH agonist May 2022; partial remission then progression by May 2023 Taxotere August 31?December 14 (6 cycles) , 2024 Nubeqa (darolutamide) August -February, [place] then progression Zytiga prednisone February 2024-April 2024 progressive disease. Apalutamide May?July 2024 progressive disease. Interval History Hospitalized October 11-2024 with acute calculus cholecystitis, discharged on oral antibiotics and with a cholecystostomy tube. Due to follow-up with surgeryJune 25 to schedule elective cholecystectomy [facility] Medical History Cancer Ambulates with cane Former smoker Chronic cough History of Holter monitoring Anxiety Hoarseness of voice Bilateral lower extremity edema Encounter for chemotherapy management History of steroid therapy Arthritis Gastric reflux Patient uses snuff Shortness of breath on exertion History of pain when walking History of edema History of atrial fibrillation Encounter for education Metastasis to bone Regional lymph node metastasis present Rising PSA following treatment for malignant neoplasm of prostate Prostate cancer metastatic to intraabdominal lymph node Edema History of COVID-19 Wears hearing aid Wears contact lenses Alcohol use DVT (deep venous thrombosis) Back pain Injury of head and neck Migraine headache History of echocardiogram History of stress test Cardiology follow-up encounter Hypertension Prostate cancer Acute on chronic diastolic (congestive) heart failure Paroxysmal supraventricular tachycardia Asthma Paroxysmal atrial flutter (08/18/18) Intermittent palpitations Obesity Surgical History History of surgery History of cardiac catheterization Hx of cystoscopy History of prostatectomy (07/05/20) History of amputation of finger of right hand History of left inguinal hernia repair History of bilateral inguinal hernia repair History of arthroscopy of left knee Family History Mother CAD (coronary artery disease) Kidney disease Father Heart disease CHF Lung cancer Uncle Myocardial infarction Paternal from [place] age 38 Social History household members: spouse current occupational status: employed Smoking Status: Former smoker Smokeless tobacco user: chewing tobacco and other alcohol intake: current alcohol intake frequency: a few times a week Alcohol type: beer details: 12 pack or more in a week substance use type: does not use caffeine: No ROS Constitutional Constitutional: Reports systems reviewed and no addt'l complaints, except as documented, fatigue, weight loss and other Details: Active weight loss by changing diet to a plant-based diet ; Denies anorexia or fever(s) Eyes Eyes: Reports systems reviewed and no addt'l complaints, except as documented ENT HEENT: Reports systems reviewed and no addt'l complaints, except as documented; Denies mouth lesions Cardiovascular Cardiovascular: Reports systems reviewed and no addt'l complaints, except as documented; Denies chest pain with activity or edema Respiratory/Chest Respiratory/Chest: Reports systems reviewed and no addt'l complaints, except as documented; Denies cough or dyspnea Gastrointestinal Gastrointestinal: Reports systems reviewed and no addt'l complaints, except as documented and as per HPI; Denies abdominal pain, change in bowel habits, hematochezia or melena Genitourinary Genitourinary: Reports systems reviewed and no addt'l complaints, except as documented; Denies hematuria Musculoskeletal Musculoskeletal: Reports systems reviewed and no addt'l complaints, except as documented, back pain and other Details: Pain has significantly improved following August 2024 radiation now down to Tylenol as needed ; Denies arthralgias, muscle spasms or muscle weakness Integumentary Integumentary: Reports systems reviewed and no addt'l complaints, except as documented; Denies new lesions Neurologic Neurologic: Reports systems reviewed and no addt'l complaints, except as documented; Denies focal weakness or paresthesias Psychiatric Psychiatric: Reports systems reviewed and no addt'l complaints, except as documented Endocrine Endocrinology: Reports systems reviewed and no addt'l complaints, except as documented Hematologic/Lymphatic Hematologic/Lymphatic: Reports systems reviewed and no addt'l complaints, exceptas documented Allergic/Immunologic Allergic/Immunologic: Reports systems reviewed and no addt'l complaints, except as documented Intake Vital Signs 10/11/24 07:05 10/19/24 16:18 10/19/24 16:25 Height 5 ft 10 in 5 ft 11 in 5 ft 11 in Weight: 101.718 kg BMI 31.2 BP 119/79 Blood Pressure Location Lt brachial Position Sitting Respiration 18 Pulse 69 Pulse Source Monitor Temp 97.3 F L Temperature Source Temporal Artery Pulse Oximetry (%) 93 Oxygen Delivery Method room air Intake Is patient in pain?: No Allergies ciprofloxacin (From Cipro) Allergy (Unknown, Verified 10/19/24 16:23) swelling Medications ?Medication ?Instructions ?Recorded ?Confirmed ?Type albuterol sulfate 90 mcg/actuation 2 puff inhalation Q 6H PRN Asthma 09/07/18 10/15/24 History aerosol inhaler (Ventolin HFA) albuterol sulfate 2.5 mg/3 mL 1.25 mg inhalation Q6H P RN PRN 06/28/20 10/15/24 History (0.083 %) solution for nebulization Asthma montelukast 10 mg tablet 10 mg PO QHS asthma 07/05/20 10/15/24 History calcium carbonate (Calcium 600) 600 mg PO DAILY supple ment 08/15/23 10/15/24 History fluticasone 100 mcg-salmeterol 50 1 inh inhalation Q12 H asthma 10/06/23 10/15/24 History mcg/dose blistr powdr for inhalation (Advair Diskus) omeprazole 20 mg tablet,delayed 20 mg PO QHS gerd 0712/1910/15/24 History release flecainide 100 mg tablet 100 mg PO BID bp #180 TABLET S 08/03/24 10/15/24 Rx leuprolide (3 month) 22.5 mg (3 22.5 mg subcut .q 3 mo nth hormone 08/03/24 10/15/24 History month) subcutaneous syringe (Sorbisensed) metoprolol succinate 100 mg 100 mg PO DAILY bp #90 tab s 08/03/24 10/15/24 Rx tablet,extended release 24 hr rivaroxaban 20 mg tablet 20 mg PO QHS BLOOD THINNER # 90 tabs 08/03/24 10/15/24 Rx albuterol sulfate 1.25 mg/3 mL 1.25 mg inhalation 4X/D AY PRN PRN 10/11/24 10/15/24 History solution for nebulization shortness of breath or wheez ing tizanidine 4 mg tablet 4 mg PO TID PRN muscle spast icity 10/11/24 10/15/24 History oxycodone 5 mg capsule 5 mg PO Q6H PRN pain 3 days #5 caps 10/12/24 10/15/24 Rx doxycycline hyclate 100 mg capsule 100 mg PO BID 10/1910/19/24 History Have you fallen in the past year?: No Central Venous Access Central Venous Access: Yes Port/PICC: Port Exam Physical Exam Narrative ECOG 1 Const alert, oriented x3 and no apparent distress General Appearance: cooperative and comfortable Coding Level of Care Code Off vis,est,level 3 Exam Problem Focused Diagnoses Prostate cancer C61 Regional lymph node metastasis present C77.9 Metastasis to bone C79.51 Assessment and Plan Assessment and Plan (1) Prostate cancer: Status: Chronic (2) Regional lymph node metastasis present: Status: Chronic (3) Metastasis to bone: Status: Chronic Plan 63-year-old male with castrate resistant metastatic prostate cancer; Rena Lara 10 status post radical prostatectomy in June 2020, adjuvant pelvic radiation November - January 2021, additional radiation therapy to presacral and periaortic lymph nodes August - September 2021. He has received hormonal therapy with LHRH agonist (Eligard) since 2020, with Xtandi added in May 2022 after documentation of hormone refractoriness and metastasis to bone based on PSMA PET in May 2022. July 2022 next generation sequence and genetic testing liquid at [facility]: No mutations identified. He ha6 a rising PSA February 2023 which prompted medical oncology consultation at [facility]. Repeat imaging with bone scan and CT scans of the chest abdomen and pelvis, though comparison to PET/CT is somewhat limited, shows overall better metastaticdisease than when he started combined antiandrogen therapy in May 2022. The rising PSA signaling early relapse of the disease after the improvement and he remained symptom-free and no measurable disease on imaging. May 2023 reported new onset of low back pain and right-sided sciatica fora month or so, pain improved after medical treatment prescribed by pain management but only temporarily and therefore he received further palliative radiation to L2-L3 and left proximal fever in July 2023. Started systemic therapy with LHRH agonist plus Nubeqa (darolutamide) August 2023 in addition to docetaxel (6 cycles August - November 2023) based on the ARASENS trial . Main toxicities encountered where cytopenias requiring growth factor support during chemotherapy salt and water retention attributed to Taxotere that required use of diuretics. He had a favorable response with PSA level down under 1. Bone scan (between May then December 2023) shows persistent, some improvement in the lumbar and left pelvis and new uptake in the ribs and clavicle. With continued upward trend in PSA and development of new bone lesions on bone scan of December 2023 patient androgen blockade treatment was changed to Zytigawith prednisone and to continue with LHRH agonist. However by April 2024 he continued to have relentlessly rising PSA and furtherworsening of bone scan. Hormonal therapy was switched to apalutamide (Erleada) May 2024. However, by July 2024 he is having increasing back pain and his PSA has gone up. At this time he has a castrate refractory metastatic prostate cancer. Chronic comorbid conditions: Asthma, paroxysmal atrial flutter on chronic anticoagulation. Plan: Based on NCCN guidelines and up-to-date review of systemic therapy of treatment of metastatic (M1) prostate cancer; 1. For castrate resistant metastatic prostate cancer advise systemic treatment with options being: a) Chemotherapy with cabazitaxel since he has been exposed to Taxotere previously. b) Refered to [facility] to be considered for radioligand therapy (radium 223 or lutetium 177); appointment is scheduled in early October 2024. 2. Continue LHRH agonist therapy long-term. 3. Continue bone supportive therapy with zoledronic acid every 12 weeks. 4. Elective imaging with a bone scan to update before upcoming chemotherapy. 5. He is under care of pain management and was refered to palliative. Patient was seen , impression and plan discussed. Follow-up after upcoming elective cholecystectomy and visit at [facility]. October 19, 2024 visit was virtual Jignesh Purcell MD [employer], [facility] Divisions of Medical Oncology & Hematology Department of Internal Medicine [place] [id number] This note was generated using a voice recognition system software. Although itwas reviewed by the author prior to finalization, it may still contain incorrectwords, spelling, and punctuation that were not noted when reviewing prior to saving. If a clinically significant typo or inaccurately typed phrase is noted, please notify the author. Clinical Quality Measures Falls Risk Screening/Assistive Devices Have you fallen in the past year?: No 10/19/24 0199 <Electronically signed by Jignesh loo MD> Date _ Jignesh Purcell MD Cosigner Signature: Date (if applicable) CC: Dr. Carlitos Brewer DO ~ [place] [employer] Work Phone: [phone] Hospital Discharge instructions Patient Education 10/18/2024 22:19:21 Pneumonia (Adult) Pneumonia (Adult) Pneumonia is an infection deep within the lungs. It is in the small air sacs (alveoli). Pneumonia may be caused by a virus or bacteria. Pneumonia caused by bacteria is usually treated with an antibiotic. Severe cases may need to be treated in the hospital. Milder cases can be treated at home. Symptoms usually start to get better during the first 2 days of treatment. Home care Follow these guidelines when caring for yourself at home: Rest at home for the first 2 to 3 days, or until you feel stronger. Don t let yourself get overly tired when you go back to your activities. Stay away from cigarette smoke yours or other people s. You may use acetaminophen or ibuprofen to control fever or pain, unless another medicine was prescribed. If you have chronic liver or kidney disease, talk with your healthcare provider before using these medicines. Also talk with your provider if you ve had a stomach ulcer or gastrointestinal bleeding. Don t give aspirin to anyone younger than 18 years of age who is ill with a fever. It may causesevere liver damage. Your appetite may be poor, so a light diet is fine. Drink 6 to 8 glasses of fluids every day to make sure you are getting enough fluids. Beverages can include water, sport drinks, sodas without caffeine, juices, tea, or soup. Fluids will help loosen secretions in the lung. This will make it easier for you to cough up the phlegm (sputum). If you alsohave heart or kidney disease, check with your healthcare provider before you drink extra fluids. Take antibiotic medicine prescribed until it is all gone, even if you are feeling better after a few days. Follow-up care Follow up with your healthcare provider in the next 2 to 3 days, or as advised. This is to be sure the medicine is helping you get better. If you are 65 or older, you should get a pneumococcal vaccine and a yearly flu (influenza) shot. You should also get these vaccines if you have chronic lung disease like asthma, emphysema, or COPD. Recently, a second type of pneumonia vaccine has become available for everyone over 65 years old. This is in addition to the previous vaccine. Ask your provider about this. When to seek medical advice Call your healthcare provider right away if any of these occur: You don t get better within the first 48 hours of treatment Shortness of breath gets worse Rapid breathing (more than 25 breaths per minute) Coughing up blood Chest pain gets worse with breathing Fever of 100.4 F (38 C) or higher that doesn t get better with fever medicine Weakness, dizziness, or fainting that gets worse Thirst or dry mouth that gets worse Sinus pain, headache, or a stiff neck Chest pain not caused by coughing [id number] [employer]. [address] [place] [address]. All rights reserved. This information is not intended as a substitute for professional medical care. Always follow yourhealthcare professional's instructions. Follow Up Care 10/18/2024 19:05:34 With:CARLITOS BREWER DO Address: [address] [place] [phone] When:2-4 days [facility] 06-23-2025 Emergency department Discharge summary Discharge Instructions Thank you for allowing [place] to assist you with your healthcare needs. The following is importantdischarge information regarding your hospital visit. What to Do Next Instructions from Your Care Team No qualifying data available. Post Acute Orders No qualifying data available. You Need to Schedule the Following Appointments Follow Up with CARLITOS BREWER DO When:Within 2-4 days Where:[address] [place] [phone] Allergies Cipro couldn't walk, hurt feet. Medications Please ask your primary doctor or pharmacist before taking any other medication not listed, including over the counter drugs, herbal medications, vitamins and or supplements as they may interact withyour home medications. What How Much When Why Instructions Last Dose New doxycycline (doxycycline hyclate 100 mg oral capsule) 1 cap by mouth Two (2) times a day Duration: 10 Days Printed Prescription Unchanged acetaminophen-caffeine (Excedrin Mild Headache 325 mg-65 mg oral tablet) 2 tab(s) by mouth Every 6 hours Unchanged albuterol (albuterol MDI (90 mcg/ inh) CFC free inhalation aerosol) 2 puff(s) by inhalation Four (4) times a day as needed for for wheezing Unchanged cefdinir (cefdinir 300 mg oral capsule) 1 cap by mouth Every 12 hours Shortness of breath Cold feeling Duration: 7 Days Unchanged docusate (docusate sodium 100 mg oral capsule) 1 cap by mouth Two (2) times a day Constipation Unchanged flecainide (flecainide 100 mg oral tablet) 1 tab(s) by mouth Every 12 hours Unchanged fluticasone-salmeterol (Advair Diskus 100 mcg-50 mcg inhalation powder) 1 puff(s) by inhalation Once a day Unchanged metoprolol (Metoprolol Succinate ER 50 mg oral TABLET extended release) 2 tab(s) Unchanged montelukast (montelukast 10 mg oral tablet) 1 tab(s) by mouth Once a day Unchanged omeprazole 20 Milligram by mouth Once a day Unchanged pegfilgrastim (Fulphila 6 mg/ 0.6 mL subcutaneous solution) 0.6 Milliliter Subcutaneous Once a day Duration: 1 Doses Unchanged rivaroxaban (Xarelto 20 mg oral tablet) 1 tab(s) by mouth With supper Unchanged tiZANidine (tiZANidine 4 mg oral tablet) 1 tab(s) Three (3) times a day Please take this list to your next doctor s visit. Bring all medications you take, including over the counter medications, herbals and other supplements with you to your doctor s visit. Patients and families are reminded to discard old lists and to update any records with all medication providers or retail pharmacies. Education Materials Pneumonia (Adult) Pneumonia is an infection deep within the lungs. It is in the small air sacs (alveoli). Pneumonia may be caused by a virus or bacteria. Pneumonia caused by bacteria is usually treated with an antibiotic. Severe cases may need to be treated in the hospital. Milder cases can be treated at home. Symptoms usually start to get better during the first 2 days of treatment. Home care Follow these guidelines when caring for yourself at home: Rest at home for the first 2 to 3 days, or until you feel stronger. Don t let yourself get overly tired when you go back to your activities. Stay away from cigarette smoke yours or other people s. You may use acetaminophen or ibuprofen to control fever or pain, unless another medicine was prescribed. If you have chronic liver or kidney disease, talk with your healthcare provider before using these medicines. Also talk with your provider if you ve had a stomach ulcer or gastrointestinal bleeding. Don t give aspirin to anyone younger than 18 years of age who is ill with a fever. It may causesevere liver damage. Your appetite may be poor, so a light diet is fine. Drink 6 to 8 glasses of fluids every day to make sure you are getting enough fluids. Beverages can include water, sport drinks, sodas without caffeine, juices, tea, or soup. Fluids will help loosen secretions in the lung. This will make it easier for you to cough up the phlegm (sputum). If you alsohave heart or kidney disease, check with your healthcare provider before you drink extra fluids. Take antibiotic medicine prescribed until it is all gone, even if you are feeling better after a few days. Follow-up care Follow up with your healthcare provider in the next 2 to 3 days, or as advised. This is to be sure the medicine is helping you get better. If you are 65 or older, you should get a pneumococcal vaccine and a yearly flu (influenza) shot. You should also get these vaccines if you have chronic lung disease like asthma, emphysema, or COPD. Recently, a second type of pneumonia vaccine has become available for everyone over 65 years old. This is in addition to the previous vaccine. Ask your provider about this. When to seek medical advice Call your healthcare provider right away if any of these occur: You don t get better within the first 48 hours of treatment Shortness of breath gets worse Rapid breathing (more than 25 breaths per minute) Coughing up blood Chest pain gets worse with breathing Fever of 100.4 F (38 C) or higher that doesn t get better with fever medicine Weakness, dizziness, or fainting that gets worse Thirst or dry mouth that gets worse Sinus pain, headache, or a stiff neck Chest pain not caused by coughing [id number] [employer]. [address] [place] [address], [place] [address]. All rights reserved. This information is not intended as a substitute for professional medical care. Always follow yourhealthcare professional's instructions. Additional Information VACCINATE! IT SAVES LIVES! Members of the community who have not yet received the COVID-19 vaccine and would like to receive it can visit one of [facility] vaccine clinics. There are many vaccine clinic locations within the [facility]. For locations and available times, please visit www.gettheshot.coronavirus.[place].gov/. It is important to note that some COVID mobile vaccine clinics are held outdoors and may be canceled in rainy or stormy conditions. To learn more about pediatric vaccinations (ages 5-11), we invite you to visit the [facility] [employer] webpage. https://www.[email or web address].org/pages/6392-Ydzxh-Byfxpanybtw-Cdhkrmvdxg-Xwfbl-Lyo stions.htmlTo learn more about the COVID-19 vaccine, we invite you to visit the CDC website for a list of frequently asked questions. https://www.cdc.gov/coronavirus/2019-ncov/vaccines/faq.html [employer] Patient Portal Access Instructions: Stay connected with your healthcare team and access your personal medical information anytime with the [employer] Patient Portal. If you would like a full copy of your medical records please contact the [facility] Medical Records Department Friday through Friday between 8a.m. and 4:30p.m. Please follow the directions below to access the portal: 1.Access the email account you provided upon registration to the hospital.2.Look for an invitation email from [facility].3.Open the email and access the invitation link: Accept Invitation to [employer]4.Fill in the required harvey to create your account. Sign into [email or web address].Hunite with your username and password that you created in the above steps to stay up to date. You can then view a summary of results, a summary of your visits, and the ability to download your summaries to your computer or send the information securely to a physician. Remember that your healthcare information is confidential, so carefully consider who you will allow to register on the [employer] Patient Portal for access to your information. You can also access the [employer] Patient Portal on the [employer]. Simply click on Health Records under HealthData and then click on the [employer] logo. HOW TO SAFELY DISPOSE OF PRESCRIPTION MEDICATIONS Please use one of the following methods to safely dispose of your unused medications. 1.Use a drug disposal kit: the drug disposal pouch allows you to safely discard your old and unuseddrugs. Ask your nurse to give you one when you are discharged.2.Visit a local take-back location: Many local pharmacies and police departments have programs that collect old and unwanted prescriptiondrugs. Call your local pharmacy or go to http://Versartis.Sport Ngin/2C8Of6b to find one close to you.3.Make use of household items: Use cat litter or old coffee grounds to dispose medications if other options arenot available. Mix your drugs with these household products, seal them in an airtight container andthrow it into the garbage. Call [facility]: [phone] to be sure your drugs can be disposed of in this way. Some medicines may require a different approach.4.Never flush your medications down the toilet. IF YOU HAVE BEEN PRESCRIBED AN OPIOIDS FOR PAIN If you have been prescribed an opioid (such as hydrocodone, oxycodone or morphine), it is critical to understand the possible side effects and risks of opioid pain medications. Even when taken as directed, opioids can have several side effects including: Tolerance, meaning you might need to take more of a medication for the same pain relief. Nausea, vomiting and/or constipation. Sleepiness, dizziness, dry mouth, confusion, depression or itching. Physical dependence, meaning you have withdrawal symptoms when a medication is stopped ? this can develop within a few days. KNOW YOUR RESPONSIBILITIES It is important to know exactly how much and how often to take the opioid pain medications you are prescribed. Never take opioids in higher amounts or more often than prescribed. Do not combine opioids with alcohol or other drugs that cause drowsiness, such as benzodiazepines, also known as benzos,including diazepam and alprazolam, muscle relaxants or sleep aids. Never sell or share prescriptionopioids. This is illegal. Store opioids in a secure place and out of reach of others (including children, family, friends and visitors). The last page(s) of this document has been signed and retained as a CHART COPY Signatures Patient Education Materials Pneumonia (Adult) Medication Leaflets My discharge plan and instructions have been reviewed and explained to me and I,DELVIS DANNIE Priscilla understand my current condition and have read and understand these discharge instructions. I have received a written copy of the plan/instructions. If I have questions, I am aware that I should contact my doctor. 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 Multiplanar reformatted images are provided for review. MIP images are provided for review. Automated exposure control, iterative reconstruction, and/or weight based adjustment of the mA/kV was utilized to reduce the radiation dose to as low as reasonably achievable. CTA of the thorax was acquired in the axial plane. Coronal and sagittal reformatted images were reviewed. Three dimensional reconstructions were created on a separate workstation. This exam was performed according to our departmental dose optimization program, and includes the following measures where applicable: automated exposure control, adjustment of the mAs and/or kVp according to patient size and/or exam, and an iterative reconstruction algorithm. COMPARISON: None HISTORY: ORDERING SYSTEM PROVIDED HISTORY: Reason for Exam: Pulmonary embolism (PE) suspected, high prob FINDINGS: Pulmonary Arteries:There is mild cardiac and respiratory motion artifact. Main pulmonary artery is nondilated. Contrast bolus is adequate to exclude pulmonary arterial embolus to the segmental level. No evidence of right heart strain. Mediastinum: There is a left chest Port-A-Cath with tip at the cavoatrial junction. Thoracic aorta does not appear dilated accounting for cardiac motion artifact. There are coronary artery calcifications. There is mild atherosclerosis of. Heart is normal in size. No pericardial effusion. No pathologically enlarged mediastinal or hilar lymph nodes by size criteria. Lungs: Central tracheobronchial tree is patent. Lung volumes are low. There is a small left pleural effusion. No pneumothorax. There are streaky bibasilar lower lobe consolidations. The right middle lobe is completely collapsed Upper Abdomen:Limited evaluation of the partially visualized upper abdomen demonstrates a percutaneous cholecystostomy tube within the gallbladder. No upper abdominal pneumoperitoneum. Finding on comparison radiograph is likely artifactual. There is a 2.3 cm right hepatic lobe fluid density lesion, likely a cyst. There are a few subcentimeter hypodensities in the liver, too small further characterize also represent cysts. Scattered colonic diverticulosis noted. Bones/Soft Tissues: There are multiple sclerotic lesions in the thoracic and partially visualized lumbar spine as well as the left clavicle and several ribs. Unremarkable soft tissues. IMPRESSION: 1. No evidence of pulmonary embolism. 2. Small left pleural effusion. 3. Streaky bibasilar lower lobe consolidations, suspicious for pneumonia or atelectasis. 4. Complete collapse of the right middle lobe. 5. Multiple sclerotic bone lesions, suspicious for metastatic disease. 6. Percutaneous cholecystostomy tube within the gallbladder. No upper abdominal pneumoperitoneum. Finding on comparison radiograph is likely artifactual. Interpreted by: Rogelio Monroy Preliminary Report By: Rogelio Monroy Electronically signed By Rogelio Monroy Dictated Date: 10/18/2024 9:45:25 PM Prelim Date: 10/18/2024 9:54:57 PM Sign Date: 10/18/2024 9:54:57 PM Ordering Provider: MAHENDRA ARRIAGA [facility]06-23-2025 Note* Exam Date Time Procedure Performing Provider Status 10/18/24 8:09 PM EKG [ED AOH] - CV ANGIE LECHUGA MD; Auth (Verified) ECG Final Report Sinus rhythm Nonspecific intraventricular conduction delay Probable lateral infarct, old Electronic Signature: ANGIE LECHUGA MD 10/18/2024 22:20:22 [facility]06-23-2025 Note* Exam Date Time Procedure Performing Provider Status 10/18/24 5:12 PM XR Chest 2 Views ROGELIO MONROY DO; Auth (Verified) [id number] ORIGINAL EXAMINATION: TWO XRAY VIEWS OF THE CHEST10/18/2024 5:13 pm CHEST AP/PA and LATERAL COMPARISON: Chest radiograph 07 31 2013 HISTORY: ORDERING SYSTEM PROVIDED HISTORY: Reason for Exam: short of breath, rales R posterior [id number]^ FINDINGS: Lines/Tubes: There is a left chest Port-A-Cath tip which projects over the right atrium. A pigtail catheter projects over the right upper quadrant. Lungs: Low lung volumes crowding bronchovascular markings. There are right greater than left bibasilar opacities. No evidence of pneumothorax. Blunting of both costophrenic angles suggestive of pleural effusions. Heart/Mediastinum: Within normal limits of size. Bones/Soft Tissues: There is pneumoperitoneum. No evidence of acute fracture. IMPRESSION: 1. Pneumoperitoneum with a right upper quadrant surgical drain. Recommend clinical correlation. 2. Right greater than left basilar opacities, concerning for pneumonia or aspiration given clinical history. Recommend follow-up to resolution. 3. Small bilateral pleural effusions. Interpreted by: Rogelio Monroy Preliminary Report By: Rogelio Monroy Electronically signed By Rogelio Monroy Dictated Date: 10/18/2024 6:27:42 PM Prelim Date: 10/18/2024 6:30:38 PM Sign Date: 10/18/2024 6:30:38 PM Ordering Provider: CARLITOS BREWER [facility]06-18-2025 [facility] 10-13-2024 Discharge summary Author Andrews Watkins [facility] Note Date/Time October 13, 2024 8:47 am [facility] Medical Records Department [address] [place] [address] Instructions for Home/Discharge Instructions 10/13/24 0842 MR#: [id number] Acct: [id number] Name: DANNIE EDMONDSON Rep #:[id number] : 1960 63 From: Andrews carrillo MD PCP: Dr. Carlitos Brewer, DO Status:ADM IN Discharge Instructions Diet Discharge Diet: Light diet - advance as tolerated DC O2, CPAP, BIPAP needs Home O2 Discharge instructions: No Dressing / Incision Discharge Activity: Return to Normal Activity Dressing / Incision Call your doctor if your incision/area has: Continuous Slow Oozing, Sudden Increased Bleeding, Increased Pain/ Swelling and Increased Redness Call your doctor if you observe: Fever of 101 or Higher, Shortness of breath, Dizziness, Fainting spells, Swelling in the ankles, Chest pain and Increased palpitations (irregular heartbeat) Cleanse incision/area with: Keep Dressing Clean & Dry (Tape off with a Ziploc bag if showering to keep dressing dry) Additional Dressing/Incision Instructions:: Keep SUKHDEV log of drainage and bring toappointment. Follow Up Care Please Follow Up With: Kitty Pruett MD Test Results: Test results from this visit will be discussed in further detail at your follow- up appointment, if applicable. Discharge Plan Admission Admit Date/Time: 10/11/24 12:15 Attending Provider: Andrews Watkins Primary Care Provider: Carlitos Brewer Consulting Providers: Kitty Pruett Instructions Patient Instructions: Luis Chopra Drain Tube Dc, Post Op Drain Emptying Steps, RAD RN Procedural Sedation Discharge Orders/Prescriptions Prescriptions: New amoxicillin-pot clavulanate 875-125 mg tablet 1 tab PO Q12H Qty: 10 0RF oxycodone 5 mg capsule 5 mg PO Q6H PRN (Reason: pain) 3 Days Qty: 5 0RF Continued albuterol sulfate [Ventolin HFA] 90 mcg/actuation HFA aerosol inhaler 2 puff INHALATION Q6H PRN (Reason: Asthma) Eligard (3 month) 22.5 mg syringe subcut .q 3 month flecainide 100 mg tablet 100 mg PO BID Qty: 180 3RF metoprolol succinate 100 mg tablet extended release 24 hr 100 mg PO DAILY Qty: 90 3RF rivaroxaban 20 mg tablet 20 mg PO QHS Qty: 90 3RF omeprazole 20 mg tablet,delayed release (DR/EC) 20 mg PO DAILY albuterol sulfate 2.5 MG/3 ML solution for nebulization 1.25 mg INHALATION Q6H PRN PRN (Reason: Asthma) montelukast 10 MG tablet 10 mg PO QHS fluticasone propion-salmeterol [Advair Diskus] 100-50 mcg/dose blister with device 1 inh INHALATION Q12H calcium carbonate [Calcium 600] 600 mg calcium (1,500 mg) tablet 600 mg PO DAILY cholecalciferol (vitamin D3) [Vitamin D3] 50 mcg (2,000 unit) capsule 50 mcg PO DAILY tizanidine 4 mg tablet 4 mg PO TID albuterol sulfate 1.25 mg/3 mL solution for nebulization 1 inhalation 4X/DAY PRN PRN (Reason: shortness of breath or wheezing) Referrals / Follow Up: Carlitos Brewer DO [Primary Care Provider] - Within 1 Week Kitty Pruett MD [Med Staff - Active Staff] - Within 2 Weeks Disposition Disposition (needs filled in before D/C Order can be placed): Home, Self Care 10/13/24 0847<Electronically signed by Andrews Watkins MD>Andrews Watkins MD CC: Dr. Carlitos Brewer DO; Dr. Kitty Pruett MD ~ Signed [facility] Work Phone: [phone]) 154-263706-18-2025 Discharge summary [facility] Medical Records Department [address] [place] [address] Instructions for Home/Discharge Instructions 10/12/24 1246 MR#: [id number] Acct: [id number] Name: DANNIE EDMONDSON Rep #:[id number] : 1960 63 From: Kitty Pruett MD PCP: Dr. Carlitos Brewer DO Status:ADM IN Discharge Instructions Diet Discharge Diet: Light diet - advance as tolerated Dressing / Incision Call your doctor if your incision/area has: Continuous Slow Oozing, Sudden Increased Bleeding, Increased Pain/ Swelling and Increased Redness Remove Dressing in: do not remove dressing (If starts to come loose let our office know so we can get another bandage to replace. Keep bandage clean and dry) Cleanse incision/area with: Keep Dressing Clean & Dry (Tape off with a Ziploc bag if showering to keep dressing dry) Additional Dressing/Incision Instructions:: Keep SUKHDEV log of drainage and bring toappointment. Extra dressing will be sent home with you if the other comes off?okay to come in to get it replaced but bring the dressing with you. Follow Up Care Please Follow Up With: Kitty Pruett MD When: Call the office for a follow-up appointment mid next week-week of October 18;tentative robotic cholecystectomy date October 26 hold Xarelto x 3 days (last dose 10/22/24) Test Results: Test results from this visit will be discussed in further detail at your follow- up appointment, if applicable. Discharge Plan Admission Admit Date/Time: 10/11/24 12:15 Attending Provider: Andrews Watkins Primary Care Provider: Carlitos Brewer Consulting Providers: Kitty Pruett Instructions Patient Instructions: Luis Chopra Drain Tube Dc, Post Op Drain Emptying Steps, ROSSY RN Procedural Sedation Discharge Orders/Prescriptions Prescriptions: New amoxicillin-pot clavulanate 875-125 mg tablet 1 tab PO Q12H Qty: 10 0RF oxycodone 5 mg capsule 5 mg PO Q6H PRN (Reason: pain) 3 Days Qty: 5 0RF Continued albuterol sulfate [Ventolin HFA] 90 mcg/actuation HFA aerosol inhaler 2 puff INHALATION Q6H PRN (Reason: Asthma) Eligard (3 month) 22.5 mg syringe subcut .q 3 month flecainide 100 mg tablet 100 mg PO BID Qty: 180 3RF metoprolol succinate 100 mg tablet extended release 24 hr 100 mg PO DAILY Qty: 90 3RF rivaroxaban 20 mg tablet 20 mg PO QHS Qty: 90 3RF omeprazole 20 mg tablet,delayed release (DR/EC) 20 mg PO DAILY albuterol sulfate 2.5 MG/3 ML solution for nebulization 1.25 mg INHALATION Q6H PRN PRN (Reason: Asthma) montelukast 10 MG tablet 10 mg PO QHS fluticasone propion-salmeterol [Advair Diskus] 100-50 mcg/dose blister with device 1 inh INHALATION Q12H calcium carbonate [Calcium 600] 600 mg calcium (1,500 mg) tablet 600 mg PO DAILY cholecalciferol (vitamin D3) [Vitamin D3] 50 mcg (2,000 unit) capsule 50 mcg PO DAILY tizanidine 4 mg tablet 4 mg PO TID albuterol sulfate 1.25 mg/3 mL solution for nebulization 1 inhalation 4X/DAY PRN PRN (Reason: shortness of breath or wheezing) Referrals / Follow Up: Carlitos Brewer DO [Primary Care Provider] - 10/25/24 1:00 pm Kitty Pruett MD [Med Staff - Active Staff] - 10/26/24 8:30 am Disposition Disposition (needs filled in before D/C Order can be placed): Home, Self Care 10/13/24 1026Kitty Pruett MD CC: Dr. Carlitos Brewer, DO; Dr. Kitty Pruett MD ~ Signed [facility]06-18-2025 Progress note [facility] Medical Records Department [address] [place] [address] Progress Note - Surgery 10/13/24815 MR#: [id number] Acct: [id number] Name: DANNIE EDMONDSON Rep #:[id number] : 1960 63 From: Kitty Pruett MD PCP: Dr. Carlitos Brewer DO Status:ADM IN [facility] Subjective Subjective Patient's SUKHDEV output bilious, right upper quadrant pain improved from last night,tolerating diet Objective Data Objective Data Vital Signs: Vital Signs Temp Pulse Resp BP Pulse Ox O2 Del Method O2 Flow Rate 97.8 F 66 18 122/74 H 96 Room Air 4 10/13/24 08:00 10/13/24 08:00 10/13/24 08:00 10/13/24 08:00 10/13/24 08:00 10/13/24 08:00 10/12/24 09:50 Oxygen Flow Rate (L/min) 4 Oxygen Delivery Method Room Air Weight: 219 lb 15.988 oz Body Mass Index (BMI) 30.7 Intake & Output: Intake and Output for Last 24 Hours 10/11/24 10/12/24 10/13/24 23:59 23:59 23:59 Intake Total 3330 / 3330 3305.00 / 3305.00 717 / 717 Output Total 740 / 740 50 / 50 Balance 3330 / 3330 2565.00 / 2565.00 667 / 667 Lab / Micro Data 10/13/24 04:33 10/13/24 04:33 Labs: Laboratory Results - last 24 hr 10/13/24 04:33: WBC 3.7 L, RBC 3.17 L, Hgb 8.8 L, Hct 27.0 L, MCV 85.2, MCH 27.8, MCHC 32.6, RDW Std Deviation 46.2 H, RDW Coeff of Emily 14.8 H, Plt Count 264, MPV 9.0, Immature Gran % (Auto) 0.500, Neut % (Auto) 78.8 H, Lymph % (Auto)10.6 L, Madison % (Auto) 7.1, Eos % (Auto) 2.5, Baso % (Auto) 0.5, Absolute Neuts (auto) 2.9, Absolute Lymphs (auto) 0.39 L, Nucleated RBC % 0, Sodium 135, Potassium 3.8, Chloride 104, Carbon Dioxide 22.2, Anion Gap 9, BUN 12, Creatinine 0.65 L, Estim Creat Clear Lshj882.64, Est GFR (MDRD) Non-Af 107, BUN/Creatinine Ratio 18.8, Glucose 90, Calcium 8.2 Micro: Microbiology 10/11/24 10:20 Urine, Clean Catch Legionella Antigen - Final 10/11/24 10:20 Urine, Clean Catch Streptococcus pneumoniae Antigen (M - Final Radiography Diagnostic Testing: Radiology Impression Biopsy CT 10/12/24 08:00 IMPRESSION: Successful CT-guided percutaneous cholecystostomy with placement of an 8 Estonian all-purpose drainage catheter. The patient tolerated the procedure well. No immediate complication was noted. Reading Location: [facility] Physical Exam Const oriented x3 GI soft to palpation GI Narrative: Mild tender in the right upper quadrant near tube insertion, cholecystostomy tube bilious Assessment & Plan Assessment/Plan (1) Acute cholecystitis due to biliary calculus: (2) Anticoagulant long-term use: PLAN: Plan Patient currently getting cholecystostomy tube in radiology. Will plan for an outpatient cholecystectomy. Will plan to send patient home on Augmentin for 5 more days. Okay to MT today per surgery. Will have patient follow-up in 1 week and plan for robotic cholecystectomy tentatively 10/26/2024. Kitty Pruett M.D. Pager: [phone] [facility] [address] [place] [address], [facility], [address] [place] [address] Office: [phone] Charges/Coding Visit Charges Inpatient E&M: 32822 Subs Hosp L2 10/13/24 1024 Cosigner Signature (if applicable): CC: ~ Signed [facility]06-18-2025 Progress note Author Kitty Pruett [facility] Note Date/Time October 13, 2024 10:2 4am [facility] Medical Records Department [address] [place] [address] Progress Note - Surgery 10/13/24815 MR#: [id number] Acct: [id number] Name: DANNIE EDMONDSON Rep #:[id number] : 1960 63 From: Kitty Pruett MD PCP: Dr. Carlitos Brewer, DO Status:ADM IN Location: [facility] [id number] Subjective Subjective Patient's SUKHDEV output bilious, right upper quadrant pain improved from last night,tolerating diet Objective Data Objective Data Vital Signs: Vital Signs Temp Pulse Resp BP Pulse Ox O2 Del Method O2 Flow Rate 97.8 F 66 18 122/74 H 96 Room Air 4 10/13/24 08:00 10/13/24 08:00 10/13/24 08:00 10/13/24 08:00 10/13/24 08:00 10/13/24 08:00 10/12/24 09:50 Oxygen Flow Rate (L/min) 4 Oxygen Delivery Method Room Air Weight: 219 lb 15.988 oz Body Mass Index (BMI) 30.7 Intake & Output: Intake and Output for Last 24 Hours 10/11/24 10/12/24 10/13/24 23:59 23:59 23:59 Intake Total 3330 / 3330 3305.00 / 3305.00 717 / 717 Output Total 740 / 740 50 / 50 Balance 3330 / 3330 2565.00 / 2565.00 667 / 667 Lab / Micro Data 10/13/24 04:33 10/13/24 04:33 Labs: Laboratory Results - last 24 hr 10/13/24 04:33: WBC 3.7 L, RBC 3.17 L, Hgb 8.8 L, Hct 27.0 L, MCV 85.2, MCH 27.8, MCHC 32.6, RDW Std Deviation 46.2 H, RDW Coeff of Emily 14.8 H, Plt Count 264, MPV 9.0, Immature Gran % (Auto) 0.500, Neut % (Auto) 78.8 H, Lymph % (Auto)10.6 L, Madison % (Auto) 7.1, Eos % (Auto) 2.5, Baso % (Auto) 0.5, Absolute Neuts (auto) 2.9, Absolute Lymphs (auto) 0.39 L, Nucleated RBC % 0, Sodium 135, Potassium 3.8, Chloride 104, Carbon Dioxide 22.2, Anion Gap 9, BUN 12, Creatinine 0.65 L, Estim Creat Clear Calc 143.64, Est GFR (MDRD) Non-Af 107, BUN/Creatinine Ratio 18.8, Glucose 90, Calcium 8.2 Micro: Microbiology 10/11/24 10:20 Urine, Clean Catch Legionella Antigen - Final 10/11/24 10:20 Urine, Clean Catch Streptococcus pneumoniae Antigen (M - Final Radiography Diagnostic Testing: Radiology Impression Biopsy CT 10/12/24 08:00 IMPRESSION: Successful CT-guided percutaneous cholecystostomy with placement of an 8 Estonian all-purpose drainage catheter. The patient tolerated the procedure well. No immediate complication was noted. Reading Location: [facility] Physical Exam Const oriented x3 GI soft to palpation GI Narrative: Mild tender in the right upper quadrant near tube insertion, cholecystostomy tube bilious Assessment & Plan Assessment/Plan (1) Acute cholecystitis due to biliary calculus: (2) Anticoagulant long-term use: PLAN: Plan Patient currently getting cholecystostomy tube in radiology. Will plan for an outpatient cholecystectomy. Will plan to send patient home on Augmentin for 5 more days. Okay to DC today per surgery. Will have patient follow-up in 1 week and plan for robotic cholecystectomy tentatively 10/26/2024. Kitty Pruett M.D. Pager: [phone] [facility] [address] [place] [address], [facility], [address] [place] [address] Office: [phone] Charges/Coding Visit Charges Inpatient E&M: 65752 Subs Hosp L2 10/13/24 1024 <Electronically signed by Kitty Pruett MD> Cosigner Signature (if applicable): CC: ~ Signed [facility] Work Phone: 1([phone]) 184-578006-18-2025 Discharge summary [facility] [facility] [address] [place] [address] Instructions for Home/Discharge Instructions 10/13/24 0842 MR#: [id number] Acct: [id number] Name: DANNIE EDMONDSON Rep #:[id number] : 1960 63 From: Andrews carrillo MD PCP: Dr. Carlitos Brewer, DO Status:ADM IN Discharge Instructions Diet Discharge Diet: Light diet - advance as tolerated DC O2, CPAP, BIPAP needs Home O2 Discharge instructions: No Dressing / Incision Discharge Activity: Return to Normal Activity Dressing / Incision Call your doctor if your incision/area has: Continuous Slow Oozing, Sudden Increased Bleeding, Increased Pain/ Swelling and Increased Redness Call your doctor if you observe: Fever of 101 or Higher, Shortness of breath, Dizziness, Fainting spells, Swelling in the ankles, Chest pain and Increased palpitations (irregular heartbeat) Cleanse incision/area with: Keep Dressing Clean & Dry (Tape off with a Ziploc bag if showering to keep dressing dry) Additional Dressing/Incision Instructions:: Keep SUKHDEV log of drainage and bring toappointment. Follow Up Care Please Follow Up With: Kitty Pruett MD Test Results: Test results from this visit will be discussed in further detail at your follow- up appointment, if applicable. Discharge Plan Admission Admit Date/Time: 10/11/24 12:15 Attending Provider: Andrews Watkins Primary Care Provider: Carlitos Brewer Consulting Providers: Kitty Pruett Instructions Patient Instructions: Luis Chopra Drain Tube Dc, Post Op Drain Emptying Steps, RAD RN Procedural Sedation Discharge Orders/Prescriptions Prescriptions: New amoxicillin-pot clavulanate 875-125 mg tablet 1 tab PO Q12H Qty: 10 0RF oxycodone 5 mg capsule 5 mg PO Q6H PRN (Reason: pain) 3 Days Qty: 5 0RF Continued albuterol sulfate [Ventolin HFA] 90 mcg/actuation HFA aerosol inhaler 2 puff INHALATION Q6H PRN (Reason: Asthma) Eligard (3 month) 22.5 mg syringe subcut .q 3 month flecainide 100 mg tablet 100 mg PO BID Qty: 180 3RF metoprolol succinate 100 mg tablet extended release 24 hr 100 mg PO DAILY Qty: 90 3RF rivaroxaban 20 mg tablet 20 mg PO QHS Qty: 90 3RF omeprazole 20 mg tablet,delayed release (DR/EC) 20 mg PO DAILY albuterol sulfate 2.5 MG/3 ML solution for nebulization 1.25 mg INHALATION Q6H PRN PRN (Reason: Asthma) montelukast 10 MG tablet 10 mg PO QHS fluticasone propion-salmeterol [Advair Diskus] 100-50 mcg/dose blister with device 1 inh INHALATION Q12H calcium carbonate [Calcium 600] 600 mg calcium (1,500 mg) tablet 600 mg PO DAILY cholecalciferol (vitamin D3) [Vitamin D3] 50 mcg (2,000 unit) capsule 50 mcg PO DAILY tizanidine 4 mg tablet 4 mg PO TID albuterol sulfate 1.25 mg/3 mL solution for nebulization 1 inhalation 4X/DAY PRN PRN (Reason: shortness of breath or wheezing) Referrals / Follow Up: Carlitos Brewer DO [Primary Care Provider] - Within 1 Week Kitty Pruett MD [Med Staff - Active Staff] - Within 2 Weeks Disposition Disposition (needs filled in before D/C Order can be placed): Home, Self Care 10/13/24 0847Andrews Watkins MD CC: Dr. Carlitos Brewer DO; Dr. Kitty Pruett MD ~ Signed [facility]06-17-2025 Progress note Author Andrews Watkins [facility] Note Date/Time October 12, 2024 1:20 pm [facility] Medical Records Department [facility] [place] [address] Progress Note - Hospitalist 10/12/24 1317 MR#: [id number] Acct: [id number] Name: DANNIE EDMONDSON FLO Rep #:[id number] : 1960 63 From: Andrews carrillo MD PCP: Dr. Carlitos Brewer DO Status:ADM IN Location: [place] [address] Subjective Subjective Doing well today, no issues overnight. Did get his cholecystostomy tube with 160 cc immediately drained Objective Data Objective Data Vital Signs: Vital Signs Temp Pulse Resp BP Pulse Ox O2 Del Method O2 Flow Rate 97.6 F L 59 L 16 99/68 93 Room Air 4 10/12/24 12:02 10/12/24 12:02 10/12/24 12:02 10/12/24 12:02 10/12/24 12:02 10/12/24 12:02 10/12/24 09:50 Oxygen Flow Rate (L/min) 4 Oxygen Delivery Method Room Air Weight: 219 lb 15.988 oz Body Mass Index (BMI) 30.7 Intake & Output: Intake and Output for Last 24 Hours 10/11/24 10/12/24 10/13/24 03:59 03:59 03:59 Intake Total 3380 / 3380 1741.0 / 1741.0 Output Total 490 / 490 Balance 3380 / 3380 1251.0 / 1251.0 Lab / Micro Data 10/12/24 04:05 10/12/24 04:05 Labs: Laboratory Results - last 24 hr 10/12/24 04:05: WBC 6.6, RBC 3.19 L, Hgb 9.1 L, Hct 27.3 L, MCV 85.6, MCH 28.5, MCHC 33.3, RDW Std Deviation 46.9 H, RDW Coeff of Emily 15.1 H, Plt Count 263, MPV9.0, Immature Gran % (Auto) 0.800, Neut % (Auto) 84.8 H, Lymph % (Auto) 6.5 L, Madison % (Auto) 6.2, Eos % (Auto) 1.4, Baso % (Auto) 0.3, Absolute Neuts (auto) 5.6, Absolute Lymphs (auto) 0.43 L, Nucleated RBC % 0, PT 19.0 H, INR 1.6, APTT 49.3 H, Sodium 134, Potassium 3.7, Chloride 102, Carbon Dioxide 22.5, Anion Gap 10, BUN 19, Creatinine 0.86, Estim Creat Clear Calc 108.57, Est GFR (MDRD) Non-Af 99, BUN/Creatinine Ratio 22.5 H, Glucose 108 H, Calcium 8.2, Total Bilirubin 0.52, Direct Bilirubin 0.31 H, AST 34, ALT 24, Alkaline Phosphatase 122, Total Protein 5.9, Albumin 2.8 L, Globulin 3.1 Micro: Microbiology 10/11/24 10:20 Urine, Clean Catch Legionella Antigen - Final 10/11/24 10:20 Urine, Clean Catch Streptococcus pneumoniae Antigen (M - Final Radiography Diagnostic Testing: Radiology Impression Biopsy CT 10/12/24 08:00 IMPRESSION: Successful CT-guided percutaneous cholecystostomy with placement of an 8 Estonian all-purpose drainage catheter. The patient tolerated the procedure well. No immediate complication was noted. Reading Location: [place] [address] Physical Exam Narrative General: Alert, Oriented x3, Cooperative, No apparent distress HEENT: Atraumatic, PERRLA, EOMI, Normocephalic Oral: Moist Mucosa Neck: Supple, No JVD Lungs: Diminished, Normal air movement, No rhonchi, No wheeze, No rales Cardiovascular: Regular rate, Regular Rhythm, Normal S1, Normal S2, No murmurs Abdomen: Soft, right upper quadrant TTP, Non-Distended, No Hepato-splenomegaly Extremities: Trace edema, Capillary Refill Less than 3 Seconds Skin: No rashes, No breakdown Musculoskeletal: No Tenderness to Palpation of Joints or Extremities Neurological: No focal neurological deficits, Motor Exam 5/5 strength throughout, Sensory exam intact to light touch and pain Psych/Mental Status: Normal Affect, Appropriate Assessment & Plan Assessment/Plan (1) Acute cholecystitis: PLAN: Plan 1. Acute cholecystitis ? Continue with Zosyn ? Continue with aggressive IV fluids ?Obtain his cholecystostomy tube today, restart Xarelto tomorrow ? Not septic, he had 1 transient blood pressure at 89 systolic but otherwise does not meet the other criteria ? Given the fact that he is immunocompromise will obtain blood cultures, it is not obtained in the ER prior to getting of Rocephin, azithromycin, and Zosyn therefore they will be low yield unless he has a significant bacterial burden ? Bile is also being cultured after his cholecystostomy placement 2. Metastatic prostate cancer ? This is obviously complicating his care with chemotherapy and hormonal therapythat he has been on ? Will hold his home medications for now he can restart them on discharge ? Unfortunately his cancer has progressed through his treatments and oncology isconsidering for him to go to the main [facility] in [place] to enter into drug trials versus radioligand therapy 3. Essential HTN/paroxysmal A-fib ? Given his softer blood pressures we will hold his metoprolol however he is also on flecainide therefore we will continue the flecainide given the risk of an arrhythmia ? Will hold his Xarelto ? Will monitor make adjustments as necessary 4. GERD ? Stable ? Continue with PPI 5. Asthma ? Continue with Singulair and his home inhaler as needed ? Stable 6. Ascending aortic aneurysm ? Measuring about 4.3 cm. He will need to follow-up with us as an outpatient DVT: Heparin Charges/Coding Visit Charges Inpatient E&M: 53922 Subs Hosp L2 10/12/24 1320 <Electronically signed by Andrews Watkins MD> Cosigner Signature (if applicable): CC: ~ Signed [facility] Work Phone: 1([phone] 187-450206-17-2025 Discharge summary Author Kitty Pruett [facility] Note Date/Time October 13, 2024 10:2 6am [facility] Medical Records Department [address] [place] [address] Instructions for Home/Discharge Instructions 10/12/24 1246 MR#: [id number] Acct: [id number] Name: DANNIE EDMONDSON Rep #:[id number] : 1960 63 From: Kitty Pruett MD PCP: Dr. Carlitos Brewer, DO Status:ADM IN Discharge Instructions Diet Discharge Diet: Light diet - advance as tolerated Dressing / Incision Call your doctor if your incision/area has: Continuous Slow Oozing, Sudden Increased Bleeding, Increased Pain/ Swelling and Increased Redness Remove Dressing in: do not remove dressing (If starts to come loose let our office know so we can get another bandage to replace. Keep bandage clean and dry) Cleanse incision/area with: Keep Dressing Clean & Dry (Tape off with a Ziploc bag if showering to keep dressing dry) Additional Dressing/Incision Instructions:: Keep SUKHDEV log of drainage and bring toappointment. Extra dressing will be sent home with you if the other comes off?okay to come in to get it replaced but bring the dressing with you. Follow Up Care Please Follow Up With: Kitty Pruett MD When: Call the office for a follow-up appointment mid next week-week of October 18;tentative robotic cholecystectomy date October 26 hold Xarelto x 3 days (last dose 6/27/25) Test Results: Test results from this visit will be discussed in further detail at your follow- up appointment, if applicable. Discharge Plan Admission Admit Date/Time: 10/11/24 12:15 Attending Provider: Andrews Watkins Primary Care Provider: Carlitos Brewer Consulting Providers: Kitty Pruett Instructions Patient Instructions: Luis Chopra Drain Tube Dc, Post Op Drain Emptying Steps, ROSSY RN Procedural Sedation Discharge Orders/Prescriptions Prescriptions: New amoxicillin-pot clavulanate 875-125 mg tablet 1 tab PO Q12H Qty: 10 0RF oxycodone 5 mg capsule 5 mg PO Q6H PRN (Reason: pain) 3 Days Qty: 5 0RF Continued albuterol sulfate [Ventolin HFA] 90 mcg/actuation HFA aerosol inhaler 2 puff INHALATION Q6H PRN (Reason: Asthma) Eligard (3 month) 22.5 mg syringe subcut .q 3 month flecainide 100 mg tablet 100 mg PO BID Qty: 180 3RF metoprolol succinate 100 mg tablet extended release 24 hr 100 mg PO DAILY Qty: 90 3RF rivaroxaban 20 mg tablet 20 mg PO QHS Qty: 90 3RF omeprazole 20 mg tablet,delayed release (DR/EC) 20 mg PO DAILY albuterol sulfate 2.5 MG/3 ML solution for nebulization 1.25 mg INHALATION Q6H PRN PRN (Reason: Asthma) montelukast 10 MG tablet 10 mg PO QHS fluticasone propion-salmeterol [Advair Diskus] 100-50 mcg/dose blister with device 1 inh INHALATION Q12H calcium carbonate [Calcium 600] 600 mg calcium (1,500 mg) tablet 600 mg PO DAILY cholecalciferol (vitamin D3) [Vitamin D3] 50 mcg (2,000 unit) capsule 50 mcg PO DAILY tizanidine 4 mg tablet 4 mg PO TID albuterol sulfate 1.25 mg/3 mL solution for nebulization 1 inhalation 4X/DAY PRN PRN (Reason: shortness of breath or wheezing) Referrals / Follow Up: Carlitos Brewer DO [Primary Care Provider] - 10/25/24 1:00 pm Kitty Pruett MD [Med Staff - Active Staff] - 10/26/24 8:30 am Disposition Disposition (needs filled in before D/C Order can be placed): Home, Self Care 10/13/24 1026<Electronically signed by Kitty Pruett MD>Kitty Pruett MD CC: Dr. Carlitos Brewer, DO; Dr. Kitty Pruett MD ~ Signed [facility] Work Phone: 1(201) 141-684706-17-2025 Progress note Author Kitty Pruett [facility] Note Date/Time October 12, 2024 12:4 6pm [facility] Medical Records Department [address] [place] [address] Progress Note - Surgery 10/12/24 0935 MR#: [id number] Acct: [id number] Name: DANNIE EDMONDSON Rep #:[id number] : 1960 63 From: Kitty Pruett MD PCP: Dr. Carlitos Brewer DO Status:ADM IN Location: [place] [address] Subjective Subjective Cholecystostomy tube was placed this morning 460 cc. Objective Data Objective Data Vital Signs: Vital Signs Temp Pulse Resp BP Pulse Ox O2 Del Method 97.5 F L 51 L 14 81/52 L 95 Room Air 10/12/24 08:28 10/12/24 08:28 10/12/24 08:28 10/12/24 08:28 10/12/24 08:28 10/12/24 08:28 Oxygen Delivery Method Room Air Weight: 219 lb 15.988 oz Body Mass Index (BMI) 30.7 Intake & Output: Intake and Output for Last 24 Hours 10/10/24 10/11/24 10/12/24 23:59 23:59 23:59 Intake Total 3330 / 3330 1118.5 / 1118.5 Output Total 300 / 300 Balance 3330 / 3330 818.5 / 818.5 Lab / Micro Data 10/12/24 04:05 10/12/24 04:05 Labs: Laboratory Results - last 24 hr 10/11/24 09:45: Troponin T Hi Sens 2 Hr 27 H 10/11/24 11:44: Troponin T Hi Sens 4Hr 24 H 10/12/24 04:05: WBC 6.6, RBC 3.19 L, Hgb 9.1 L, Hct 27.3 L, MCV 85.6, MCH 28.5, MCHC 33.3, RDW Std Deviation 46.9 H, RDW Coeff of Emily 15.1 H, Plt Count 263, MPV9.0, Immature Gran % (Auto) 0.800, Neut % (Auto) 84.8 H, Lymph % (Auto) 6.5 L, Madison % (Auto) 6.2, Eos % (Auto) 1.4, Baso % (Auto) 0.3, Absolute Neuts (auto) 5.6, Absolute Lymphs (auto) 0.43 L, Nucleated RBC % 0, PT 19.0 H, INR 1.6, APTT 49.3 H, Sodium 134, Potassium 3.7, Chloride 102, Carbon Dioxide 22.5, Anion Gap 10, BUN 19, Creatinine 0.86, Estim Creat Clear Calc 108.57, Est GFR (MDRD) Non-Af 99, BUN/Creatinine Ratio 22.5 H, Glucose 108 H, Calcium 8.2, Total Bilirubin 0.52, Direct Bilirubin 0.31 H, AST 34, ALT 24, Alkaline Phosphatase 122, Total Protein 5.9, Albumin 2.8 L, Globulin 3.1 Micro: Microbiology 10/11/24 10:20 Urine, Clean Catch Legionella Antigen - Final 10/11/24 10:20 Urine, Clean Catch Streptococcus pneumoniae Antigen (M - Final Physical Exam Const oriented x3 GI soft to palpation GI Narrative: Tender in the right upper quadrant near tube insertion, cholecystostomy tube reddish with some thicker saez material Assessment & Plan Assessment/Plan (1) Acute cholecystitis due to biliary calculus: (2) Anticoagulant long-term use: PLAN: Plan Patient currently getting cholecystostomy tube in radiology. Will plan for an outpatient cholecystectomy. Will plan to send patient home on Augmentin for 5 more days. If patient is ableto tolerate diet we will plan for discharge tomorrow morning. Will have patientfollow-up in 1 week and plan for robotic cholecystectomy tentatively 10/26/2024. Kitty Pruett M.D. Pager: [phone] [facility] [address] [place] [address], [facility], [address] [place] [address] Office: [phone] Charges/Coding Visit Charges Inpatient E&M: 31360 Subs Hosp L2 10/12/24 1246 <Electronically signed by Kitty Pruett MD> Cosigner Signature (if applicable): CC: ~ Signed [facility] Work Phone: 1([phone]) 305-413206-17-2025 Progress note [facility] Medical Records Department [address] [place] [address] Progress Note - Hospitalist 10/12/24 1317 MR#: [id number] Acct: [id number] Name: DANNIE EDMONDSON Rep #:[id number] : 1960 63 From: Andrews carrillo MD PCP: Dr. Carlitos Brewer, DO Status:ADM IN Location: [place] [address]1 Subjective Subjective Doing well today, no issues overnight. Did get his cholecystostomy tube with 160 cc immediately drained Objective Data Objective Data Vital Signs: Vital Signs Temp Pulse Resp BP Pulse Ox O2 Del Method O2 Flow Rate 97.6 F L 59 L 16 99/68 93 Room Air 4 10/12/24 12:02 10/12/24 12:02 10/12/24 12:02 10/12/24 12:02 10/12/24 12:02 10/12/24 12:02 10/12/24 09:50 Oxygen Flow Rate (L/min) 4 Oxygen Delivery Method Room Air Weight: 219 lb 15.988 oz Body Mass Index (BMI) 30.7 Intake & Output: Intake and Output for Last 24 Hours 10/11/24 10/12/24 10/13/24 03:59 03:59 03:59 Intake Total 3380 / 3380 1741.0 / 1741.0 Output Total 490 / 490 Balance 3380 / 3380 1251.0 / 1251.0 Lab / Micro Data 10/12/24 04:05 10/12/24 04:05 Labs: Laboratory Results - last 24 hr 10/12/24 04:05: WBC 6.6, RBC 3.19 L, Hgb 9.1 L, Hct 27.3 L, MCV 85.6, MCH 28.5, MCHC 33.3, RDW Std Deviation 46.9 H, RDW Coeff of Emily 15.1 H, Plt Count 263, MPV9.0, Immature Gran % (Auto) 0.800, Neut% (Auto) 84.8 H, Lymph % (Auto) 6.5 L, Madison % (Auto) 6.2, Eos % (Auto) 1.4, Baso % (Auto) 0.3, Absolute Neuts (auto) 5.6, Absolute Lymphs (auto) 0.43 L, Nucleated RBC % 0, PT 19.0 H, INR 1.6, APTT 49.3 H, Sodium 134, Potassium 3.7, Chloride 102, Carbon Dioxide 22.5, Anion Gap 10, BUN 19, Creatinine0.86, Estim Creat Clear Calc 108.57, Est GFR (MDRD) Non-Af 99, BUN/Creatinine Ratio 22.5 H, [id number] H, Calcium 8.2, Total Bilirubin 0.52, Direct Bilirubin 0.31 H, AST 34, ALT 24, Alkaline Phosphatase 122, Total Protein 5.9, Albumin 2.8 L, Globulin 3.1 Micro: Microbiology 10/11/24 10:20 Urine, Clean Catch Legionella Antigen - Final 10/11/24 10:20 Urine, Clean Catch Streptococcus pneumoniae Antigen (M - Final Radiography Diagnostic Testing: Radiology Impression Biopsy CT 10/12/24 08:00 IMPRESSION: Successful CT-guided percutaneous cholecystostomy with placement of an 8 Estonian all-purpose drainage catheter. The patient tolerated the procedure well. No immediate complication was noted. Reading Location: [place] [address] Physical Exam Narrative General: Alert, Oriented x3, Cooperative, No apparent distress HEENT: Atraumatic, PERRLA, EOMI, Normocephalic Oral: Moist Mucosa Neck: Supple, No JVD Lungs: Diminished, Normal air movement, No rhonchi, No wheeze, No rales Cardiovascular: Regular rate, Regular Rhythm, Normal S1, Normal S2, No murmurs Abdomen: Soft, right upper quadrant TTP, Non-Distended, No Hepato-splenomegaly Extremities: Trace edema, Capillary Refill Less than 3 Seconds Skin: No rashes, No breakdown Musculoskeletal: No Tenderness to Palpation of Joints or Extremities Neurological: No focal neurological deficits, Motor Exam 5/5 strength throughout, Sensory exam intact to light touch and pain Psych/Mental Status: Normal Affect, Appropriate Assessment & Plan Assessment/Plan (1) Acute cholecystitis: PLAN: Plan 1. Acute cholecystitis ? Continue with Zosyn ? Continue with aggressive IV fluids ?Obtain his cholecystostomy tube today, restart Xarelto tomorrow ? Not septic, he had 1 transient blood pressure at 89 systolic but otherwise does not meet the other criteria ? Given the fact that he is immunocompromise will obtain blood cultures, it is not obtained in the ER prior to getting of Rocephin, azithromycin, and Zosyn therefore they will be low yield unless he has a significant bacterial burden ? Bile is also being cultured after his cholecystostomy placement 2. Metastatic prostate cancer ? This is obviously complicating his care with chemotherapy and hormonal therapythat he has been on ? Will hold his home medications for now he can restart them on discharge ? Unfortunately his cancer has progressed through his treatments and oncology isconsidering for himto go to the [facility] in [place] to enter into drug trials versus radioligand therapy 3. Essential HTN/paroxysmal A-fib ? Given his softer blood pressures we will hold his metoprolol however he is also on flecainide therefore we will continue the flecainide given the risk of an arrhythmia ? Will hold his Xarelto ? Will monitor make adjustments as necessary 4. GERD ? Stable ? Continue with PPI 5. Asthma ? Continue with Singulair and his home inhaler as needed ? Stable 6. Ascending aortic aneurysm ? Measuring about 4.3 cm. He will need to follow-up with us as an outpatient DVT: Heparin Charges/Coding Visit Charges Inpatient E&M: 74965 Subs Hosp L2 10/12/24 1320 Cosigner Signature (if applicable): CC: ~ Signed [facility]06-17-2025 Progress note [facility] Medical Records Department [address] [place] [address] Progress Note - Surgery 10/12/24 0935 MR#: [id number] Acct: [id number] Name: DANNIE EDMONDSON Rep #:[id number] : 1960 63 From: Kitty Pruett MD PCP: Dr. Carlitos Brewer, DO Status:ADM IN Location: [place] [address] Subjective Subjective Cholecystostomy tube was placed this morning 460 cc. Objective Data Objective Data Vital Signs: Vital Signs Temp Pulse Resp BP Pulse Ox O2 Del Method 97.5 F L 51 L 14 81/52 L 95 Room Air 10/12/24 08:28 10/12/24 08:28 10/12/24 08:28 10/12/24 08:28 10/12/24 08:28 10/12/24 08:28 Oxygen Delivery Method Room Air Weight: 219 lb 15.988 oz Body Mass Index (BMI) 30.7 Intake & Output: Intake and Output for Last 24 Hours 10/10/24 10/11/24 10/12/24 23:59 23:59 23:59 Intake Total 3330 / 3330 1118.5 / 1118.5 Output Total 300 / 300 Balance 3330 / 3330 818.5 / 818.5 Lab / Micro Data 10/12/24 04:05 10/12/24 04:05 Labs: Laboratory Results - last 24 hr 10/11/24 09:45: Troponin T Hi Sens 2 Hr 27 H 10/11/24 11:44: Troponin T Hi Sens 4Hr 24 H 10/12/24 04:05: WBC 6.6, RBC 3.19 L, Hgb 9.1 L, Hct 27.3 L, MCV 85.6, MCH 28.5, MCHC 33.3, RDW Std Deviation 46.9 H, RDW Coeff of Emily 15.1 H, Plt Count 263, MPV9.0, Immature Gran % (Auto) 0.800, Neut% (Auto) 84.8 H, Lymph % (Auto) 6.5 L, Madison % (Auto) 6.2, Eos % (Auto) 1.4, Baso % (Auto) 0.3, Absolute Neuts (auto) 5.6, Absolute Lymphs (auto) 0.43 L, Nucleated RBC % 0, PT 19.0 H, INR 1.6, APTT 49.3 H, Sodium 134, Potassium 3.7, Chloride 102, Carbon Dioxide 22.5, Anion Gap 10, BUN 19, Creatinine0.86, Estim Creat Clear Calc 108.57, Est GFR (MDRD) Non-Af 99, BUN/Creatinine Ratio 22.5 H, [id number] H, Calcium 8.2, Total Bilirubin 0.52, Direct Bilirubin 0.31 H, AST 34, ALT 24, Alkaline Phosphatase 122, Total Protein 5.9, Albumin 2.8 L, Globulin 3.1 Micro: Microbiology 10/11/24 10:20 Urine, Clean Catch Legionella Antigen - Final 10/11/24 10:20 Urine, Clean Catch Streptococcus pneumoniae Antigen (M - Final Physical Exam Const oriented x3 GI soft to palpation GI Narrative: Tender in the right upper quadrant near tube insertion, cholecystostomy tube reddish with some thicker saez material Assessment & Plan Assessment/Plan (1) Acute cholecystitis due to biliary calculus: (2) Anticoagulant long-term use: PLAN: Plan Patient currently getting cholecystostomy tube in radiology. Will plan for an outpatient cholecystectomy. Will plan to send patient home on Augmentin for 5 more days. If patient is ableto tolerate diet we will plan for discharge tomorrow morning. Will have patientfollow-up in 1 week and plan for robotic cholecystectomy tentatively 10/26/2024. Kitty Pruett M.D. Pager: [phone] [facility] [address] [place] [address], [facility] [place], [address] [place] [address] Office: [phone] Charges/Coding Visit Charges Inpatient E&M: 33801 Subs Hosp L2 10/12/24 1249 Cosigner Signature (if applicable): CC: ~ Signed [facility]06-17-2025 Radiology Diagnostic study note [facility] [address] [place] [id number] Biopsy/Inj or Needle Placement MR#: [id number] Acct: [id number] Name: DANNIE EDMONDSON Rep #: [id number] : 1960 M 63 From: Erik Velasco MD PCP: Dr. Carlitos Brewer, DO Status: ADM IN Study:Biopsy/Inj or Needle Placement Date of Exam: 10/12/24 Exam# [id number] Ordering Dr: Kitty Pruett MD EXAM: CT-guided percutaneous cholecystostomy. CLINICAL HISTORY: Hydrops of the gallbladder with a stone in the neck of the gallbladder. Sepsis. COMPARISON: Prior study dated October 11, 2024. TECHNIQUE: CT-guided percutaneous cholecystostomy. The procedure as well as the benefits and possible complications including infection and bleeding were explained to the patient and the patient's daughter. Informed consent was obtained. The patient was in the supine position. Conscious sedation was performed. The patient received 2 mgof Versed and 25 mcg of fentanyl intravenously. Conscious sedation was started at 9:21 a.m. and terminated at 9:47 a.m.. The patient was independently monitored by the department nurse. The overlying skin in the right upper quadrant was prepped and draped in the usual sterile fashion.Following local anesthetic application, a direct puncture into the gallbladder with an 8 Estonian all- purposedrainage catheter was performed. 160 mL of purulent material was aspirated. The patient tolerated the procedure well. Dose report: CTDI L volume: 26 mGy. DLP: 1290.92 FINDINGS: Successful CT-guided percutaneous cholecystostomy with placement of an [address]/Biopsy/Inj or Needle Placement IMPRESSION: Successful CT-guided percutaneous cholecystostomy with placement of an 8 Estonian all-purpose drainage catheter. The patient tolerated the procedure well. No immediate complication was noted. Reading Location: [place] [address] CC: Dr. Carlitos Berwer DO; Dr. Kitty Pruett MD ~ Plastics Nurse: Signed [facility]06-16-2025 History and physical note Author Andrews Watkins [facility] Note Date/Time October 11, 2024 6:52 pm [facility] Medical Records Department [address] [place] [address] H&P Exam - Hospitalist 10/11/24 1832 MR#: [id number] Acct: [id number] Name: DANNIE EDMONDSON Rep #:[id number] : 1960 63 From: Andrews carrillo MD PCP: Dr. Carlitos Brewer DO Status:ADM IN Location: MS3 [id number] HPI - General General Date of Admission: 10/11/24 HPI Narrative DANNIE EDMONDSON, is a 63 M who presents to the hospital with abdominal pain that was occasionally going up into the right side of his chest, he is also having some left-sided upper back pain that his thinks might be related to new metastatic disease. He has a history of metastatic prostate cancer to his bonesand he is very tender on his left upper back so is likely musculoskeletal in origin. In the ER he was found to have a slight leukocytosis to [address] scan of his abdomen pelvis demonstrated acute cholecystitis with pericholecystic fluid and inflammation. General surgery was consulted in the ER and they felt that given the severity of inflammation and the duration of symptoms that he would be better served with a cholecystostomy tube especially since he has also been on Xarelto for A-fib. [facility] Medical History (Updated 10/11/24 @ 12:58 by Rosario Betts) Anxiety Atrial fibrillation Hoarseness of voice Bilateral lower extremity edema Encounter for chemotherapy management History of steroid therapy Arthritis Dietary restriction Gastric reflux Patient uses snuff Shortness of breath on exertion History of pain when walking History of edema History of atrial fibrillation Encounter for education Metastasis to bone Regional lymph node metastasis present Rising PSA following treatment for malignant neoplasm of prostate Prostate cancer metastatic to intraabdominal lymph node Edema History of COVID-19 Wears hearing aid Wears contact lenses Alcohol use DVT (deep venous thrombosis) Back pain Injury of head and neck Migraine headache History of echocardiogram History of stress test Cardiology follow-up encounter Hypertension Prostate cancer Acute on chronic diastolic (congestive) heart failure Paroxysmal supraventricular tachycardia Asthma Paroxysmal atrial flutter (08/18/18) Intermittent palpitations Obesity Home Medications ?Medication ?Instructions ?Recorded ?Last Taken ?Type albuterol sulfate 90 mcg/actuation 2 puff inhalation Q 6H PRN Asthma 09/07/18 11/15/20 06:00 History aerosol inhaler (Ventolin HFA) albuterol sulfate 2.5 mg/3 mL 1.25 mg inhalation Q6H P RN PRN 06/28/20 08/25/23 History (0.083 %) solution for nebulization Asthma montelukast 10 mg tablet 10 mg PO QHS asthma 07/05/20 09/09/23 History calcium carbonate (Calcium 600) 600 mg PO DAILY supple ment 08/15/23 09/09/23 History cholecalciferol (vitamin D3) 50 50 mcg PO DAILY supple ment 08/15/23 09/09/23 History mcg (2,000 unit) capsule (Vitamin D3) fluticasone 100 mcg-salmeterol 50 1 inh inhalation Q12 H asthma 10/06/23 Unknown History mcg/dose blistr powdr for inhalation (Advair Diskus) omeprazole 20 mg tablet,delayed 20 mg PO DAILY gerd Unknown History release flecainide 100 mg tablet 100 mg PO BID bp #180 TABLET S 08/03/24 Unknown Rx leuprolide (3 month) 22.5 mg (3 mg subcut .q 3 month h ormone 08/03/24 Unknown History month) subcutaneous syringe (Mompery) metoprolol succinate 100 mg 100 mg PO DAILY bp #90 tab s 08/03/24 Unknown Rx tablet,extended release 24 hr rivaroxaban 20 mg tablet 20 mg PO QHS BLOOD THINNER # 90 tabs 08/03/24 Unknown Rx albuterol sulfate 1.25 mg/3 mL 1 inhalation 4X/DAY PRN PRN 10/11/24 Unknown History solution for nebulization shortness of breath or wheez ing tizanidine 4 mg tablet 4 mg PO TID 10/11/24 Unknown History Allergy/AdvReac Type Severity Reaction Status Date / Time ciprofloxacin (From Cipro) Allergy Unknown swelling Verified 10/11/24 07:05 Family History Mother CAD (coronary artery disease) Kidney disease Father Heart disease CHF Lung cancer Uncle Myocardial infarction Paternal from [place] age 38 Surgical History Hx of cystoscopy History of prostatectomy (07/05/20) History of amputation of finger of right hand History of left inguinal hernia repair History of bilateral inguinal hernia repair History of arthroscopy of left knee Social History household members: spouse current occupational status: employed Smoking Status: Never smoker Smokeless tobacco user: chewing tobacco and other alcohol intake: current alcohol intake frequency: a few times a week Alcohol type: beer details: 12 pack or more in a week substance use type: does not use caffeine: No ROS Constitutional Constitutional: Reports malaise; Denies chills, fatigue or fever(s) Eyes Eyes: Denies blurry vision ENT HEENT: Denies headache(s) or nasal discharge Cardiovascular Cardiovascular: Denies chest pain, dyspnea on exertion or syncope Respiratory/Chest Respiratory/Chest: Denies cough, shortness of breath at rest or shortness of breath with exertion Gastrointestinal Gastrointestinal: Reports abdominal pain; Denies constipation, diarrhea, nausea or vomiting Genitourinary Genitourinary: Denies dysuria Neurologic Neurologic: Denies focal weakness, numbness or tremor(s) Psychiatric Psychiatric: Denies anxiety or depression Vital Signs Vital Signs Vital Signs: 10/11/24 07:05 10/11/24 07:36 10/11/24 09:04 Temperature 98.2 F 98.2 F Temperature Source Oral Oral Pulse Rate 82 80 Respiratory Rate 20 H 13 Respiratory Effort Short of Breath Respiratory Depth Respiratory Pattern Tachypnea Blood Pressure 101/72 102/68 Blood Pressure Mean 81 79 Blood Pressure Source Blood Pressure Position Blood Pressure Location Pulse Ox 98 93 Oxygen Delivery Method Room Air Room Air 10/11/24 11:00 10/11/24 12:26 10/11/24 12:58 Temperature 98.3 F 98.2 F Temperature Source Oral Pulse Rate 88 88 75 Respiratory Rate 16 16 18 Respiratory Effort Respiratory Depth Respiratory Pattern Blood Pressure 96/64 96/64 97/56 L Blood Pressure Mean 74 74 69 Blood Pressure Source Manual Blood Pressure Position Semi-Fowlers Blood Pressure Location Right Arm Pulse Ox 98 98 91 Oxygen Delivery Method Room Air 10/11/24 13:00 10/11/24 15:18 10/11/24 17:06 Temperature 98.2 F 98.0 F Temperature Source Oral Oral Pulse Rate 68 73 Respiratory Rate 18 18 Respiratory Effort Normal Respiratory Depth Normal Respiratory Pattern Normal Blood Pressure 89/43 L 90/52 L Blood Pressure Mean 58 64 Blood Pressure Source Monitor Monitor Blood Pressure Position Semi-Fowlers Semi-Fowlers Blood Pressure Location Right Arm Right Arm Pulse Ox 93 94 Oxygen Delivery Method Room Air Room Air Room Air Weight Weight: 219 lb 15.988 oz Body Mass Index (BMI) 30.7 Physical Exam Narrative General: Alert, Oriented x3, Cooperative, No apparent distress HEENT: Atraumatic, PERRLA, EOMI, Normocephalic Oral: Moist Mucosa Neck: Supple, No JVD Lungs: Diminished, Normal air movement, No rhonchi, No wheeze, No rales Cardiovascular: Regular rate, Regular Rhythm, Normal S1, Normal S2, No murmurs Abdomen: Soft, right upper quadrant TTP, Non-Distended, No Hepato-splenomegaly Extremities: Trace edema, Capillary Refill Less than 3 Seconds Skin: No rashes, No breakdown Musculoskeletal: No Tenderness to Palpation of Joints or Extremities Neurological: No focal neurological deficits, Motor Exam 5/5 strength throughout, Sensory exam intact to light touch and pain Psych/Mental Status: Normal Affect, Appropriate Results Lab / Micro Data 10/11/24 07:45 10/11/24 07:45 Labs: Laboratory Results - last 24 hr 10/11/24 07:45: WBC 11.7 H, RBC 4.07 L, Hgb 11.4 L, Hct 34.4 L, MCV 84.5, MCH 28.0, MCHC 33.1, RDW Std Deviation 45.7 H, RDW Coeff of Emily 14.8 H, Plt Count 358, MPV 9.2, Immature Gran % (Auto) 1.400 H, Neut % (Auto) 84.8 H, Lymph % (Auto) 5.4 L, Madison % (Auto) 8.0, Eos % (Auto) 0.1, Baso % (Auto) 0.3, Absolute Neuts (auto) 10.0 H, Absolute Lymphs (auto) 0.63 L, Nucleated RBC % 0, Sodium 133, Potassium 3.6, Chloride 99, Carbon Dioxide 20.6 L, Anion Gap 14, BUN 24 H, Creatinine 1.44 H, Estim Creat Clear Calc 63.94, Est GFR (MDRD) Non-Af 55 L, BUN/Creatinine Ratio 16.6, Glucose 149 H, Calcium 9.0, Total Bilirubin 0.99, AST22, ALT 16, Alkaline Phosphatase 152 H, Troponin T High Sens 30 H, NT pro BNP II896, Total Protein 7.0, Albumin 3.4, Globulin 3.6, Albumin/Globulin Ratio 0.9, Lipase 15 10/11/24 09:45: Troponin T Hi Sens 2 Hr 27 H 10/11/24 11:44: Troponin T Hi Sens 4Hr 24 H Micro: Microbiology 10/11/24 10:20 Urine, Clean Catch Legionella Antigen - Final 10/11/24 10:20 Urine, Clean Catch Streptococcus pneumoniae Antigen (M - Final Imaging Radiology Impression Chest CTA 10/11/24 07:46 IMPRESSION: 1. No evidence of pulmonary emboli. 2. Aneurysmal dilatation of the ascending thoracic aorta. 3. Atelectasis or pneumonia in the middle lobe of the right lung in the lower lobe of both lungs as described. 4. Other findings as noted. Reading Location: [id number] Abdomen/Pelvis CT 10/11/24 08:00 IMPRESSION: Acute cholecystitis with inflammatory process affecting the right upper quadrantand transiting hepatic flexure of the colon. Reading [facility] Assessment & Plan Assessment/Plan (1) Acute cholecystitis: PLAN: Plan 1. Acute cholecystitis ? Continue with Zosyn ? Continue with aggressive IV fluids ? He can have clear liquids until midnight when he will be n.p.o. ? Will continue to hold Xarelto-after plan for cholecystostomy tube tomorrow morning ? Not septic, he had 1 transient blood pressure at 89 systolic but otherwise does not meet the other criteria ? Given the fact that he is immunocompromise will obtain blood cultures, it is not obtained in the ER prior to getting of Rocephin, azithromycin, and Zosyn therefore they will be low yield unless he has a significant bacterial burden 2. Metastatic prostate cancer ? This is obviously complicating his care with chemotherapy and hormonal therapythat he has been on ? Will hold his home medications for now he can restart them on discharge ? Unfortunately his cancer has progressed through his treatments and oncology isconsidering for him to go to the main [facility] in [place] to enter into drug trials versus radioligand therapy 3. Essential HTN/paroxysmal A-fib ? Given his softer blood pressures we will hold his metoprolol however he is also on flecainide therefore we will continue the flecainide given the risk of an arrhythmia ? Will hold his Xarelto ? Will monitor make adjustments as necessary 4. GERD ? Stable ? Continue with PPI 5. Asthma ? Continue with Singulair and his home inhaler as needed ? Stable 6. Ascending aortic aneurysm ? Measuring about 4.3 cm. He will need to follow-up with us as an outpatient DVT: Heparin 75 minutes was spent on direct patient care, including documentation as well as chart review and collaboration with colleagues Charges/Coding Visit Charges Inpatient E&M: 70953 Init Hosp L3 10/11/24 3246 <Electronically signed by Andrews Watkins MD> Cosigner Signature (if applicable): CC: Dr. Andrews Watkins MD; Dr. Carlitos Brewer DO~ Signed [facility] Work Phone: [phone] History and physical note [facility] Medical Records Department [address] [place] [address] H&P Exam - Hospitalist 10/11/24 1832 MR#: [id number] Acct: [id number] Name: DANNIE EDMONDSON Rep #:[id number] : 1960 63 From: Andrews carrillo MD PCP: Dr. Carlitos Brewer, DO Status:ADM IN Location: MS3 [id number] HPI - General General Date of Admission: 10/11/24 HPI Narrative DANNIE EDMONDSON, is a 63 M who presents to the hospital with abdominal pain that was occasionally going up into the right side of his chest, he is also having some left-sided upper back pain that his thinks might be related to new metastatic disease. He has a history of metastatic prostate cancerto his bonesand he is very tender on his left upper back so is likely musculoskeletal in origin. Inthe ER he was found to have a slight leukocytosis to [address] scan of his abdomen pelvis demonstrated acute cholecystitis with pericholecystic fluid and inflammation. General surgery was consulted in the ER and they felt that given the severity of inflammation and the duration of symptoms that he w ould be better served with a cholecystostomy tube especially since he has also been on Xarelto for A-fib. [facility] Medical History (Updated 10/11/24 @ 12:58 by Rosario Betts) Anxiety Atrial fibrillation Hoarseness of voice Bilateral lower extremity edema Encounter for chemotherapy management History of steroid therapy Arthritis Dietary restriction Gastric reflux Patient uses snuff Shortness of breath on exertion History of pain when walking History of edema History of atrial fibrillation Encounter for education Metastasis to bone Regional lymph node metastasis present Rising PSA following treatment for malignant neoplasm of prostate Prostate cancer metastatic to intraabdominal lymph node Edema History of COVID-19 Wears hearing aid Wears contact lenses Alcohol use DVT (deep venous thrombosis) Back pain Injury of head and neck Migraine headache History of echocardiogram History of stress test Cardiology follow-up encounter Hypertension Prostate cancer Acute on chronic diastolic (congestive) heart failure Paroxysmal supraventricular tachycardia Asthma Paroxysmal atrial flutter (08/18/18) Intermittent palpitations Obesity Home Medications ?Medication ?Instructions ?Recorded ?Last Taken ?Type albuterol sulfate 90 mcg/actuation 2 puff inhalation Q 6H PRN Asthma 09/07/18 11/15/20 06:00 History aerosol inhaler (Ventolin HFA) albuterol sulfate 2.5 mg/3 mL 1.25 mg inhalation Q6H P RN PRN 06/28/20 08/25/23 History (0.083 %) solution for nebulization Asthma montelukast 10 mg tablet 10 mg PO QHS asthma 07/05/20 09/09/23 History calcium carbonate (Calcium 600) 600 mg PO DAILY supple ment 08/15/23 09/09/23 History cholecalciferol (vitamin D3) 50 50 mcg PO DAILY supple ment 08/15/23 09/09/23 History mcg (2,000 unit) capsule (Vitamin D3) fluticasone 100 mcg-salmeterol 50 1 inh inhalation Q12 H asthma 10/06/23 Unknown History mcg/dose blistr powdr for inhalation (Advair Diskus) omeprazole 20 mg tablet,delayed 20 mg PO DAILY gerd Unknown History release flecainide 100 mg tablet 100 mg PO BID bp #180 TABLET S 08/03/24 Unknown Rx leuprolide (3 month) 22.5 mg (3 mg subcut .q 3 month h ormone 08/03/24 Unknown History month) subcutaneous syringe (Eligard) metoprolol succinate 100 mg 100 mg PO DAILY bp #90 tab s 08/03/24 Unknown Rx tablet,extended release 24 hr rivaroxaban 20 mg tablet 20 mg PO QHS BLOOD THINNER # 90 tabs 08/03/24 Unknown Rx albuterol sulfate 1.25 mg/3 mL 1 inhalation 4X/DAY PRN PRN 10/11/24 Unknown History solution for nebulization shortness of breath or wheez ing tizanidine 4 mg tablet 4 mg PO TID 10/11/24 Unknown History Allergy/AdvReac Type Severity Reaction Status Date / Time ciprofloxacin (From Cipro) Allergy Unknown swelling Verified 10/11/24 07:05 Family History Mother CAD (coronary artery disease) Kidney disease Father Heart disease CHF Lung cancer Uncle Myocardial infarction Paternal from [place] age 38 Surgical History Hx of cystoscopy History of prostatectomy (07/05/20) History of amputation of finger of right hand History of left inguinal hernia repair History of bilateral inguinal hernia repair History of arthroscopy of left knee Social History household members: spouse current occupational status: employed Smoking Status: Never smoker Smokeless tobacco user: chewing tobacco and other alcohol intake: current alcohol intake frequency: a few times a week Alcohol type: beer details: 12 pack or more in a week substance use type: does not use caffeine: No ROS Constitutional Constitutional: Reports malaise; Denies chills, fatigue or fever(s) Eyes Eyes: Denies blurry vision ENT HEENT: Denies headache(s) or nasal discharge Cardiovascular Cardiovascular: Denies chest pain, dyspnea on exertion or syncope Respiratory/Chest Respiratory/Chest: Denies cough, shortness of breath at rest or shortness of breath with exertion Gastrointestinal Gastrointestinal: Reports abdominal pain; Denies constipation, diarrhea, nausea or vomiting Genitourinary Genitourinary: Denies dysuria Neurologic Neurologic: Denies focal weakness, numbness or tremor(s) Psychiatric Psychiatric: Denies anxiety or depression Vital Signs Vital Signs Vital Signs: 10/11/24 07:05 10/11/24 07:36 10/11/24 09:04 Temperature 98.2 F 98.2 F Temperature Source Oral Oral Pulse Rate 82 80 Respiratory Rate 20 H 13 Respiratory Effort Short of Breath Respiratory Depth Respiratory Pattern Tachypnea Blood Pressure 101/72 102/68 Blood Pressure Mean 81 79 Blood Pressure Source Blood Pressure Position Blood Pressure Location Pulse Ox 98 93 Oxygen Delivery Method Room Air Room Air 10/11/24 11:00 10/11/24 12:26 10/11/24 12:58 Temperature 98.3 F 98.2 F Temperature Source Oral Pulse Rate 88 88 75 Respiratory Rate 16 16 18 Respiratory Effort Respiratory Depth Respiratory Pattern Blood Pressure 96/64 96/64 97/56 L Blood Pressure Mean 74 74 69 Blood Pressure Source Manual Blood Pressure Position Semi-Fowlers Blood Pressure Location Right Arm Pulse Ox 98 98 91 Oxygen Delivery Method Room Air 10/11/24 13:00 10/11/24 15:18 10/11/24 17:06 Temperature 98.2 F 98.0 F Temperature Source Oral Oral Pulse Rate 68 73 Respiratory Rate 18 18 Respiratory Effort Normal Respiratory Depth Normal Respiratory Pattern Normal Blood Pressure 89/43 L 90/52 L Blood Pressure Mean 58 64 Blood Pressure Source Monitor Monitor Blood Pressure Position Semi-Fowlers Semi-Fowlers Blood Pressure Location Right Arm Right Arm Pulse Ox 93 94 Oxygen Delivery Method Room Air Room Air Room Air Weight Weight: 219 lb 15.988 oz Body Mass Index (BMI) 30.7 Physical Exam Narrative General: Alert, Oriented x3, Cooperative, No apparent distress HEENT: Atraumatic, PERRLA, EOMI, Normocephalic Oral: Moist Mucosa Neck: Supple, No JVD Lungs: Diminished, Normal air movement, No rhonchi, No wheeze, No rales Cardiovascular: Regular rate, Regular Rhythm, Normal S1, Normal S2, No murmurs Abdomen: Soft, right upper quadrant TTP, Non-Distended, No Hepato-splenomegaly Extremities: Trace edema, Capillary Refill Less than 3 Seconds Skin: No rashes, No breakdown Musculoskeletal: No Tenderness to Palpation of Joints or Extremities Neurological: No focal neurological deficits, Motor Exam 5/5 strength throughout, Sensory exam intact to light touch and pain Psych/Mental Status: Normal Affect, Appropriate Results Lab / Micro Data 10/11/24 07:45 10/11/24 07:45 Labs: Laboratory Results - last 24 hr 10/11/24 07:45: WBC 11.7 H, RBC 4.07 L, Hgb 11.4 L, Hct 34.4 L, MCV 84.5, MCH 28.0, MCHC 33.1, RDW Std Deviation 45.7 H, RDW Coeff of Emily 14.8 H, Plt Count 358, MPV 9.2, Immature Gran % (Auto) 1.400 H, Neut % (Auto) 84.8 H, Lymph % (Auto) 5.4 L, Madison % (Auto) 8.0, Eos % (Auto) 0.1, Baso % (Auto) 0.3, Absolute Neuts (auto) 10.0 H, Absolute Lymphs (auto) 0.63 L, Nucleated RBC % 0, Sodium 133, Potassium 3.6, Chloride 99, Carbon Dioxide 20.6 L, Anion Gap 14, BUN 24 H, Creatinine 1.44 H, Estim CreatClear Calc 63.94, Est GFR (MDRD) Non-Af 55 L, BUN/Creatinine Ratio 16.6, Glucose 149 H, Calcium 9.0, Total Bilirubin 0.99, AST22, ALT 16, Alkaline Phosphatase 152 H, Troponin T High Sens 30 H, NT proBNP II896, Total Protein 7.0, Albumin 3.4, Globulin 3.6, Albumin/Globulin Ratio 0.9, Lipase 15 10/11/24 09:45: Troponin T Hi Sens 2 Hr 27 H 10/11/24 11:44: Troponin T Hi Sens 4Hr 24 H Micro: Microbiology 10/11/24 10:20 Urine, Clean Catch Legionella Antigen - Final 10/11/24 10:20 Urine, Clean Catch Streptococcus pneumoniae Antigen (M - Final Imaging Radiology Impression Chest CTA 10/11/24 07:46 IMPRESSION: 1. No evidence of pulmonary emboli. 2. Aneurysmal dilatation of the ascending thoracic aorta. 3. Atelectasis or pneumonia in the middle lobe of the right lung in the lower lobe of both lungs asdescribed. 4. Other findings as noted. Reading Location: [id number] Abdomen/Pelvis CT 10/11/24 08:00 IMPRESSION: Acute cholecystitis with inflammatory process affecting the right upper quadrantand transiting hepatic flexure of the colon. Reading Location[facility] Assessment & Plan Assessment/Plan (1) Acute cholecystitis: PLAN: Plan 1. Acute cholecystitis ? Continue with Zosyn ? Continue with aggressive IV fluids ? He can have clear liquids until midnight when he will be n.p.o. ? Will continue to hold Xarelto-after plan for cholecystostomy tube tomorrow morning ? Not septic, he had 1 transient blood pressure at 89 systolic but otherwise does not meet the other criteria ? Given the fact that he is immunocompromise will obtain blood cultures, it is not obtained in the ER prior to getting of Rocephin, azithromycin, and Zosyn therefore they will be low yield unless he has a significant bacterial burden 2. Metastatic prostate cancer ? This is obviously complicating his care with chemotherapy and hormonal therapythat he has been on ? Will hold his home medications for now he can restart them on discharge ? Unfortunately his cancer has progressed through his treatments and oncology isconsidering for himto go to the main [place] to enter into drug trials versus radioligand therapy 3. Essential HTN/paroxysmal A-fib ? Given his softer blood pressures we will hold his metoprolol however he is also on flecainide therefore we will continue the flecainide given the risk of an arrhythmia ? Will hold his Xarelto ? Will monitor make adjustments as necessary 4. GERD ? Stable ? Continue with PPI 5. Asthma ? Continue with Singulair and his home inhaler as needed ? Stable 6. Ascending aortic aneurysm ? Measuring about 4.3 cm. He will need to follow-up with us as an outpatient DVT: Heparin 75 minutes was spent on direct patient care, including documentation as well as chart review and collaboration with colleagues Charges/Coding Visit Charges Inpatient E&M: 01543 Init Hosp L3 10/11/24 0136 Cosigner Signature (if applicable): CC: Dr. Andrews Watkins MD; Dr. Carlitos Brewer, ~ Signed [facility]06-16-2025 Consult note Author Kitty Pruett [facility] Note Date/Time October 11, 2024 12:5 0pm [facility] Medical Records Department [address] [place] [address] Consultation - Surgical 10/11/24 1033 MR#: [id number] Acct: [id number] Name: DANNIE EDMONDSON Rep #:[id number] : 1960 63 From: Kitty Pruett MD PCP: Dr. Carlitos Brewer, Status:ADM IN Location: [place] [id number] Assessment & Plan Assessment/Plan (1) Acute cholecystitis due to biliary calculus: (2) Anticoagulant long-term use: PLAN: Plan Patient has had pain since Friday. And took his Xarelto at 9 PM last night. Would recommend cholecystostomy tube with cholecystectomy as an outpatient in 3 to 4 weeks. Discussed with patient and his son. Plan for admission for hospitalist. Due to taking the Xarelto at 9 PM last night we will plan for cholecystostomy tube to be placed tomorrow morning to talk with Dr. Velasco our radiologist. Hold Xarelto Pain control IV Vanesa Pruett M.D. Pager: [phone] [facility] [address] [place] [address], Outpatient [facility], [address] [place] [id number] Office: [phone] HPI Consult Data Date of Consult: 10/11/24 HPI Narrative HPI Narrative: DANNIE EDMONDSON, is a 63 M who presents to the ER due to right upper quadrant pain. Patient states started about Friday has had decreased appetite since then. Patient did take his Xarelto for A-fib last night at [address] abdomen pelvis consistent with acute cholecystitis with inflammation in the right upper quadrant. Patient was given Zosyn in the ER. White blood cell count was 11.7 with a shift. [facility] Medical History Hoarseness of voice Bilateral lower extremity edema Encounter for chemotherapy management History of steroid therapy Arthritis Dietary restriction Gastric reflux Patient uses snuff Shortness of breath on exertion History of pain when walking History of edema History of atrial fibrillation Encounter for education Metastasis to bone Regional lymph node metastasis present Rising PSA following treatment for malignant neoplasm of prostate Prostate cancer metastatic to intraabdominal lymph node Edema History of COVID-19 Wears hearing aid Wears contact lenses Alcohol use DVT (deep venous thrombosis) Back pain Injury of head and neck Migraine headache History of echocardiogram History of stress test Cardiology follow-up encounter Hypertension Prostate cancer Acute on chronic diastolic (congestive) heart failure Paroxysmal supraventricular tachycardia Asthma Paroxysmal atrial flutter (08/18/18) Intermittent palpitations Obesity Home Medications ?Medication ?Instructions ?Recorded ?Last Taken ?Type albuterol sulfate 90 mcg/actuation 2 puff inhalation Q 6H PRN Asthma 09/07/18 11/15/20 06:00 History aerosol inhaler (Ventolin HFA) albuterol sulfate 2.5 mg/3 mL 2.5 mg inhalation Q6H UT N PRN 06/28/20 08/25/23 History (0.083 %) solution for nebulization Asthma montelukast 10 mg tablet 10 mg PO QHS asthma 07/05/20 09/09/23 History lidocaine-prilocaine 2.5 %-2.5 % 1 applic topical ONCE PRN port 07/07/23 Unknown Rx topical cream access 30 days #30 grams oxycodone 10 mg tablet 10 mg PO Q8H PRN pain 08/17/23 History calcium carbonate (Calcium 600) 600 mg PO DAILY 09/09/23 History cholecalciferol (vitamin D3) 50 50 mcg PO DAILY 09/09/23 History mcg (2,000 unit) capsule (Vitamin D3) yqqcrrw-pslwmrzazgghu-rkvxjdom 250 1 tab PO Q4-6H PRN pain 10/06/23 Unknown History mg-250 mg-65 mg tablet (Excedrin Migraine) fluticasone 100 mcg-salmeterol 50 1 inh inhalation YOVANY LY asthma 10/06/23 Unknown History mcg/dose blistr powdr for inhalation (Advair Diskus) omeprazole 20 mg tablet,delayed 20 mg PO DAILY 4 Unknown History release flecainide 100 mg tablet 100 mg PO BID #180 TABLETS 0 08/03/24 Unknown Rx leuprolide (3 month) 22.5 mg (3 mg subcut 08/03/24 Unk nown History month) subcutaneous syringe (Mompery) metoprolol succinate 100 mg 100 mg PO DAILY bp #90 tab s 08/03/24 Unknown Rx tablet,extended release 24 hr polyethylene glycol 3350 17 g PO QDAY PRN 08/03/24 Unk nown History gram/dose oral powder (Miralax) rivaroxaban 20 mg tablet 20 mg PO QHS BLOOD THINNER # 90 tabs 08/03/24 Unknown Rx albuterol sulfate 1.25 mg/3 mL 1 inhalation 4X/DAY PRN PRN 10/11/24 Unknown History solution for nebulization shortness of breath or wheez ing tizanidine 4 mg tablet 4 mg PO TID 10/11/24 Unknown History Allergy/AdvReac Type Severity Reaction Status Date / Time ciprofloxacin (From Cipro) Allergy Unknown swelling Verified 10/11/24 07:05 Family History Mother CAD (coronary artery disease) Kidney disease Father Heart disease CHF Lung cancer Uncle Myocardial infarction Paternal from [place] age 38 Surgical History Hx of cystoscopy History of prostatectomy (07/05/20) History of amputation of finger of right hand History of left inguinal hernia repair History of bilateral inguinal hernia repair History of arthroscopy of left knee Social History household members: spouse current occupational status: employed Smoking Status: Never smoker Smokeless tobacco user: chewing tobacco and other alcohol intake: current alcohol intake frequency: a few times a week Alcohol type: beer details: 12 pack or more in a week substance use type: does not use caffeine: No ROS Constitutional Constitutional: Reports anorexia; Denies fever(s) Eyes Eyes: Denies blurry vision ENT HEENT: Denies dysphagia Cardiovascular Cardiovascular: Reports chest pain Respiratory/Chest Respiratory/Chest: Denies cough Gastrointestinal Gastrointestinal: Reports abdominal pain and nausea Genitourinary Genitourinary: Denies dysuria Musculoskeletal Musculoskeletal: Denies joint swelling Integumentary Integumentary: Denies jaundice Neurologic Neurologic: Denies focal weakness Psychiatric Psychiatric: Denies depression Endocrine Endocrinology: Denies palpitations Hematologic/Lymphatic Hematologic/Lymphatic: Denies easy bleeding Physical Exam Const alert, oriented x3 and no apparent distress HEENT normocephalic and head/scalp atraumatic Chest Chest Narrative: Left chest port in place clean dry and intact Resp normal respiratory effort Cardio regular rate GI soft to palpation; Negative for non-distended Palpation: tender epigastric, RUQ and Isbell's sign; Negative for guarding Extremity no clubbing, cyanosis or edema Neuro CN's II-XII intact bilaterally Psych mental status grossly normal Lab / Micro Data 10/11/24 07:45 10/11/24 07:45 Labs: Laboratory Results - last 24 hr 10/11/24 07:45: WBC 11.7 H, RBC 4.07 L, Hgb 11.4 L, Hct 34.4 L, MCV 84.5, MCH 28.0, MCHC 33.1, RDW Std Deviation 45.7 H, RDW Coeff of Emily 14.8 H, Plt Count 358, MPV 9.2, Immature Gran % (Auto) 1.400 H, Neut % (Auto) 84.8 H, Lymph % (Auto) 5.4 L, Madison % (Auto) 8.0, Eos % (Auto) 0.1, Baso % (Auto) 0.3, Absolute Neuts (auto) 10.0 H, Absolute Lymphs (auto) 0.63 L, Nucleated RBC % 0, Sodium 133, Potassium 3.6, Chloride 99, Carbon Dioxide 20.6 L, Anion Gap 14, BUN 24 H, Creatinine 1.44 H, Estim Creat Clear Calc 63.94, Est GFR (MDRD) Non-Af 55 L, BUN/Creatinine Ratio 16.6, Glucose 149 H, Calcium 9.0, Total Bilirubin 0.99, AST22, ALT 16, Alkaline Phosphatase 152 H, Troponin T High Sens 30 H, NT pro BNP II896, Total Protein 7.0, Albumin 3.4, Globulin 3.6, Albumin/Globulin Ratio 0.9, Lipase 15 Imaging Radiology Impression Chest CTA 10/11/24 07:46 IMPRESSION: 1. No evidence of pulmonary emboli. 2. Aneurysmal dilatation of the ascending thoracic aorta. 3. Atelectasis or pneumonia in the middle lobe of the right lung in the lower lobe of both lungs as described. 4. Other findings as noted. Reading Location: [id number] Abdomen/Pelvis CT 10/11/24 08:00 IMPRESSION: Acute cholecystitis with inflammatory process affecting the right upper quadrantand transiting hepatic flexure of the colon. Reading [facility] Charges/Coding Visit Charges Inpatient E&M: 39124 Init Hosp L3 10/11/24 1250 <Electronically signed by Kitty Pruett MD> Cosigner Signature (if applicable): CC: Dr. Carlitos Brewer DO~ Signed [facility] Work Phone: [phone] Discharge summary Author Darron Washington [facility] Note Date/Time October 11, 2024 12:2 2pm [facility] Medical Records Department [address] [place] [address] Emergency Department Summary 10/11/24 MR#: [id number] Acct: [id number] Name: DANNIE EDMONDSON Rep #:[id number] : 1960 63 From: Darron Washington DO PCP: Dr. Carlitos Brewer DO Status:REG ER Location: ED HPI History of Present Illness Chief Complaint: General Illness Narrative Narrative: Patient is a 63-year-old male with a past medical history of prostate cancer with metastases, paroxysmal atrial flutter on Xarelto, congestive heart failure,GERD, DVT, hypertension who presents to the emergency department with a chief complaint of shortness of breath, right-sided chest pain, constipation and abdominal pain. Patient states that he just went to [place] for bone scan and CT scans and just returned. He states that he has worsening shortness of breathwith exertion and states that he feels like his lungs are filled with fluid he states that he has never had to have this drained off his lungs before. Patientdenies any sick contacts. [facility] Medical History Hoarseness of voice Bilateral lower extremity edema Encounter for chemotherapy management History of steroid therapy Arthritis Dietary restriction Gastric reflux Patient uses snuff Shortness of breath on exertion History of pain when walking History of edema History of atrial fibrillation Encounter for education Metastasis to bone Regional lymph node metastasis present Rising PSA following treatment for malignant neoplasm of prostate Prostate cancer metastatic to intraabdominal lymph node Edema History of COVID-19 Wears hearing aid Wears contact lenses Alcohol use DVT (deep venous thrombosis) Back pain Injury of head and neck Migraine headache History of echocardiogram History of stress test Cardiology follow-up encounter Hypertension Prostate cancer Acute on chronic diastolic (congestive) heart failure Paroxysmal supraventricular tachycardia Asthma Paroxysmal atrial flutter (08/18/18) Intermittent palpitations Obesity Home Medications ?Medication ?Instructions ?Recorded ?Last Taken ?Type albuterol sulfate 90 mcg/actuation 2 puff inhalation Q 6H PRN Asthma 09/07/18 11/15/20 06:00 History aerosol inhaler (Ventolin HFA) albuterol sulfate 2.5 mg/3 mL 2.5 mg inhalation Q6H UT N PRN 06/28/20 08/25/23 History (0.083 %) solution for nebulization Asthma montelukast 10 mg tablet 10 mg PO QHS asthma 07/05/20 09/09/23 History lidocaine-prilocaine 2.5 %-2.5 % 1 applic topical ONCE PRN port 07/07/23 Unknown Rx topical cream access 30 days #30 grams oxycodone 10 mg tablet 10 mg PO Q8H PRN pain 08/17/23 History calcium carbonate (Calcium 600) 600 mg PO DAILY 09/09/23 History cholecalciferol (vitamin D3) 50 50 mcg PO DAILY 09/09/23 History mcg (2,000 unit) capsule (Vitamin D3) txeeubg-alqubouwleffe-rnbgkicr 250 1 tab PO Q4-6H PRN pain 10/06/23 Unknown History mg-250 mg-65 mg tablet (Excedrin Migraine) fluticasone 100 mcg-salmeterol 50 1 inh inhalation YOVANY LY asthma 10/06/23 Unknown History mcg/dose blistr powdr for inhalation (Advair Diskus) omeprazole 20 mg tablet,delayed 20 mg PO DAILY 4 Unknown History release flecainide 100 mg tablet 100 mg PO BID #180 TABLETS 0 08/03/24 Unknown Rx leuprolide (3 month) 22.5 mg (3 mg subcut 08/03/24 Unk nown History month) subcutaneous syringe (EliZetticsd) metoprolol succinate 100 mg 100 mg PO DAILY bp #90 tab s 08/03/24 Unknown Rx tablet,extended release 24 hr polyethylene glycol 3350 17 g PO QDAY PRN 08/03/24 Unk nown History gram/dose oral powder (Miralax) rivaroxaban 20 mg tablet 20 mg PO QHS BLOOD THINNER # 90 tabs 08/03/24 Unknown Rx albuterol sulfate 1.25 mg/3 mL 1 inhalation 4X/DAY PRN PRN 10/11/24 Unknown History solution for nebulization shortness of breath or wheez ing tizanidine 4 mg tablet 4 mg PO TID 10/11/24 Unknown History Allergy/AdvReac Type Severity Reaction Status Date / Time ciprofloxacin (From Cipro) Allergy Unknown swelling Verified 10/11/24 07:05 Family History Mother CAD (coronary artery disease) Kidney disease Father Heart disease CHF Lung cancer Uncle Myocardial infarction Paternal from [place] age 38 Surgical History Hx of cystoscopy History of prostatectomy (07/05/20) History of amputation of finger of right hand History of left inguinal hernia repair History of bilateral inguinal hernia repair History of arthroscopy of left knee Social History household members: spouse current occupational status: employed Smoking Status: Never smoker Smokeless tobacco user: chewing tobacco and other alcohol intake: current alcohol intake frequency: a few times a week Alcohol type: beer details: 12 pack or more in a week substance use type: does not use caffeine: No ROS ROS ED ROS Narrative Constitutional: Denies fevers, chills, headaches Cardiovascular: Complains of right sided rib/chest pain Respiratory: Complains shortness of breath denies coughing wheezing Abdomen: Complains of constipation and abdominal pain as noted above denies vomiting or diarrhea denies dark tarry stools or blood in his stool : Denies urinary symptoms Neurological: Denies numbness, weakness, tingling Musculoskeletal: Complains of left-sided back pain Skin: Denies any rashes or lesions EXAM Physical Exam Narrative Exam Narrative: General: Patient lying in bed resting comfortably did not appear to be acute distress Head: Atraumatic, normocephalic Eyes: PERRL bilaterally, EOMI bilateral, no conjunctival injection noted Neck: Soft, supple, trachea midline Cardiovascular: Regular in rhythm no murmurs gallops rubs noted Respiratory: Clear to auscultation bilaterally Abdomen: Soft, nondistended, diffuse tenderness to palpation no rebound or guarding on exam Extremities: +4/5 strength noted in the bilateral upper and lower extremities, radial pulses +2/4 in the bilateral extremities, no pedal edema on exam Neurological: Patient follow commands knew that he was at [facility] Skin: Warm, dry, intact no rashes or lesions noted Const Vital Signs: 10/11/24 07:05 10/11/24 07:36 10/11/24 09:04 Temperature 98.2 F 98.2 F Temperature Source Oral Oral Pulse Rate 82 80 Respiratory Rate 20 H 13 Respiratory Effort Short of Breath Respiratory Pattern Tachypnea Blood Pressure 101/72 102/68 Blood Pressure Mean 81 79 Pulse Ox 98 93 Oxygen Delivery Method Room Air Room Air 10/11/24 11:00 Temperature Temperature Source Pulse Rate 88 Respiratory Rate 16 Respiratory Effort Respiratory Pattern Blood Pressure 96/64 Blood Pressure Mean 74 Pulse Ox 98 Oxygen Delivery Method MDM MDM MDM Narrative Medical decision making narrative: Patient is a 63-year-old male who presented to the emergency department with a chief complaint of dyspnea on exertion, right sided chest wall pain and left back pain. On the differential diagnosis includes but not limited to CHF exacerbation, ACS, pneumothorax, pneumonia, worsening metastases, malignant pleural effusion, PE. Once workup is obtained reviewed he will be reevaluated. Patient's CBC was reviewed and showed a leukocytosis of 11,000, hemoglobin 11.4,platelet count of 358. Patient sodium was 133, potassium 3.6, creatinine was 1.44. Patient's AST and ALT are 22 and 16 respectively, troponin was 30 with a delta troponin pending. Patient's EKG was reviewed as well which showed sinus rhythm with a rate of 78 bpm. Patient's proBNP normal at 896, lipase normal at 15. Patient's total bilirubin normal at 0.99. Patient's CTA of the chest was reviewed and showed no evidence of pulmonary emboli. Aneurysmal dilation of theascending thoracic aorta which measures 4.3 in the mid ascending and 2.5 in the proximal descending. Atelectasis or pneumonia in the middle lobe of the right lung in the lower lobe of both lungs as described. After this was reviewed patient was ordered Rocephin and azithromycin at 9:[address] ab and pelvis with IV contrast was pending. Patient CT abdomen pelvis IV contrast reviewed and showed acute cholecystitis with inflammatory process affecting the right upper quadrant and transhepatic flexure of the colon. Repeat abdominal exam patient has significant tenderness palpation of the right upper quadrant. Reach out to on-call general surgeon Dr. Pruett who states that she will talk with interventional radiology to see if they can place a drain since he is on Xarelto. Patient was given Zosyn at 9:[address] Pruett states that admit the patient to the hospitalist team hold Xarelto and drain will be placed in the morning. Will discuss case with hospitalist for admission. Discussed case with hospitalist Dr. Watkins who accept patient for admission. Lab Data Labs: Laboratory Results - last 24 hr 10/11/24 10/11/24 10/11/24 07:45 09:45 11:44 WBC 11.7 H RBC 4.07 L Hgb 11.4 L Hct 34.4 L MCV 84.5 MCH 28.0 MCHC 33.1 RDW Std Deviation 45.7 H RDW Coeff of Emily 14.8 H Plt Count 358 MPV 9.2 Immature Gran % (Auto) 1.400 H Neut % (Auto) 84.8 H Lymph % (Auto) 5.4 L Madison % (Auto) 8.0 Eos % (Auto) 0.1 Baso % (Auto) 0.3 Absolute Neuts (auto) 10.0 H Absolute Lymphs (auto) 0.63 L Nucleated RBC % 0 Sodium 133 Potassium 3.6 Chloride 99 Carbon Dioxide 20.6 L Anion Gap 14 BUN 24 H Creatinine 1.44 H Estim Creat Clear Calc 63.94 Est GFR (MDRD) Non-Af 55 L BUN/Creatinine Ratio 16.6 Glucose 149 H Calcium 9.0 Total Bilirubin 0.99 AST 22 ALT 16 Alkaline Phosphatase 152 H Troponin T High Sens 30 H Troponin T Hi Sens 2 Hr 27 H Troponin T Hi Sens 4Hr 24 H NT pro BNP II 896 Total Protein 7.0 Albumin 3.4 Globulin 3.6 Albumin/Globulin Ratio 0.9 Lipase 15 Radiography Diagnostic Testing: Clinical Impression(s) from Imaging Studies Chest CTA 10/11/24 07:46 IMPRESSION: 1. No evidence of pulmonary emboli. 2. Aneurysmal dilatation of the ascending thoracic aorta. 3. Atelectasis or pneumonia in the middle lobe of the right lung in the lower lobe of both lungs as described. 4. Other findings as noted. Reading Location: [facility] Abdomen/Pelvis CT 10/11/24 08:00 IMPRESSION: Acute cholecystitis with inflammatory process affecting the right upper quadrantand transiting hepatic flexure of the colon. Reading Location[facility] Discharge Plan Triage Chief Complaint: General Illness ED Provider: Darron Washington Dx/Rx/DC Orders Clinical Impression: Abdominal pain, Prostate cancer, Metastasis to bone, Paroxysmal atrial flutter,Acute cholecystitis Prescriptions: No Action albuterol sulfate [Ventolin HFA] 90 mcg/actuation HFA aerosol inhaler 2 puff INHALATION Q6H PRN (Reason: Asthma) Eligard (3 month) 22.5 mg syringe subcut polyethylene glycol 3350 [Miralax] 17 gram/dose powder PO QDAY PRN flecainide 100 mg tablet 100 mg PO BID Qty: 180 3RF metoprolol succinate 100 mg tablet extended release 24 hr 100 mg PO DAILY Qty: 90 3RF rivaroxaban 20 mg tablet 20 mg PO QHS Qty: 90 3RF lidocaine-prilocaine 2.5-2.5 % cream 1 applic topical ONCE PRN (Reason: port access) 30 Days Qty: 30 2RF oxycodone 10 mg tablet 10 mg PO Q8H PRN (Reason: pain) Excedrin Migraine 250-250-65 mg tablet 1 tab PO Q4-6H PRN (Reason: pain) omeprazole 20 mg tablet,delayed release (DR/EC) 20 mg PO DAILY albuterol sulfate 2.5 MG/3 ML solution for nebulization 2.5 mg INHALATION Q6H PRN PRN (Reason: Asthma) montelukast 10 MG tablet 10 mg PO QHS fluticasone propion-salmeterol [Advair Diskus] 100-50 mcg/dose blister with device 1 inh INHALATION DAILY calcium carbonate [Calcium 600] 600 mg calcium (1,500 mg) tablet 600 mg PO DAILY cholecalciferol (vitamin D3) [Vitamin D3] 50 mcg (2,000 unit) capsule 50 mcg PO DAILY tizanidine 4 mg tablet 4 mg PO TID albuterol sulfate 1.25 mg/3 mL solution for nebulization 1 inhalation 4X/DAY PRN PRN (Reason: shortness of breath or wheezing) Primary Care Provider: Carlitos Brewer Referrals: Carlitos Brewer DO [Primary Care Provider] - Print Language: Brazilian Disposition Disposition: Acute Care Hospital [facility] What to do if you have Problems For any increased pain, shortness of breath, bleeding, nausea or vomiting, chestpain, or any unexpected problems, contact your Primary Care Provider. Call [facility] ([phone]) or report to the closest Emergency Room. Call 911 if necessary. 10/11/24 1222 <Electronically signed by Darron Washington DO> Cosigner Signature (if applicable): CC: Dr. Carlitos Brewer DO ~ Signed [facility] Work Phone: [phone] Consult note [facility] Medical Records Department [address] [place] [address] Consultation - Surgical 10/11/24 1033 MR#: [id number] Acct: [id number] Name: DANNIE EDMONDSON Rep #:[id number] : 1960 63 From: Kitty Pruett MD PCP: Dr. Carlitos Brewer DO Status:ADM IN Location: DC3 [id number] Assessment & Plan Assessment/Plan (1) Acute cholecystitis due to biliary calculus: (2) Anticoagulant long-term use: PLAN: Plan Patient has had pain since Friday. And took his Xarelto at 9 PM last night. Would recommend cholecystostomy tube with cholecystectomy as an outpatient in 3 to 4 weeks. Discussed with patient and his son. Plan for admission for hospitalist. Due to taking the Xarelto at 9 PM last night we will plan for cholecystostomy tube to be placed tomorrow morning to talk with Dr. Velasco our radiologist. Hold Xarelto Pain control IV Zosyn Kitty Pruett M.D. Pager: [phone] [facility] [address] [place] [address], [facility], [address] [place] [address] Office: [phone] HPI Consult Data Date of Consult: 10/11/24 HPI Narrative HPI Narrative: DANNIE EDMONDSON, is a 63 M who presents to the ER due to right upper quadrant pain. Patient states started about Friday has had decreased appetite since then. Patient did take his Xarelto for A-fib last night at [address] abdomen pelvis consistent with acute cholecystitis with inflammation inthe right upper quadrant. Patient was given Zosyn in the ER. White blood cell count was 11.7 with ashift. [facility] Medical History Hoarseness of voice Bilateral lower extremity edema Encounter for chemotherapy management History of steroid therapy Arthritis Dietary restriction Gastric reflux Patient uses snuff Shortness of breath on exertion History of pain when walking History of edema History of atrial fibrillation Encounter for education Metastasis to bone Regional lymph node metastasis present Rising PSA following treatment for malignant neoplasm of prostate Prostate cancer metastatic to intraabdominal lymph node Edema History of COVID-19 Wears hearing aid Wears contact lenses Alcohol use DVT (deep venous thrombosis) Back pain Injury of head and neck Migraine headache History of echocardiogram History of stress test Cardiology follow-up encounter Hypertension Prostate cancer Acute on chronic diastolic (congestive) heart failure Paroxysmal supraventricular tachycardia Asthma Paroxysmal atrial flutter (08/18/18) Intermittent palpitations Obesity Home Medications ?Medication ?Instructions ?Recorded ?Last Taken ?Type albuterol sulfate 90 mcg/actuation 2 puff inhalation Q 6H PRN Asthma 09/07/18 11/15/20 06:00 History aerosol inhaler (Ventolin HFA) albuterol sulfate 2.5 mg/3 mL 2.5 mg inhalation Q6H UT N PRN 06/28/20 08/25/23 History (0.083 %) solution for nebulization Asthma montelukast 10 mg tablet 10 mg PO QHS asthma 07/05/20 09/09/23 History lidocaine-prilocaine 2.5 %-2.5 % 1 applic topical ONCE PRN port 07/07/23 Unknown Rx topical cream access 30 days #30 grams oxycodone 10 mg tablet 10 mg PO Q8H PRN pain 08/17/23 History calcium carbonate (Calcium 600) 600 mg PO DAILY 09/09/23 History cholecalciferol (vitamin D3) 50 50 mcg PO DAILY 09/09/23 History mcg (2,000 unit) capsule (Vitamin D3) qcfimgr-gkheurorpkbez-dhditlvn 250 1 tab PO Q4-6H PRN pain 10/06/23 Unknown History mg-250 mg-65 mg tablet (Excedrin Migraine) fluticasone 100 mcg-salmeterol 50 1 inh inhalation YOVANY LY asthma 10/06/23 Unknown History mcg/dose blistr powdr for inhalation (Advair Diskus) omeprazole 20 mg tablet,delayed 20 mg PO DAILY 4 Unknown History release flecainide 100 mg tablet 100 mg PO BID #180 TABLETS 0 08/03/24 Unknown Rx leuprolide (3 month) 22.5 mg (3 mg subcut 08/03/24 Unk nown History month) subcutaneous syringe (Eligard) metoprolol succinate 100 mg 100 mg PO DAILY bp #90 tab s 08/03/24 Unknown Rx tablet,extended release 24 hr polyethylene glycol 3350 17 g PO QDAY PRN 08/03/24 Unk nown History gram/dose oral powder (Miralax) rivaroxaban 20 mg tablet 20 mg PO QHS BLOOD THINNER # 90 tabs 08/03/24 Unknown Rx albuterol sulfate 1.25 mg/3 mL 1 inhalation 4X/DAY PRN PRN 10/11/24 Unknown History solution for nebulization shortness of breath or wheez ing tizanidine 4 mg tablet 4 mg PO TID 10/11/24 Unknown History Allergy/AdvReac Type Severity Reaction Status Date / Time ciprofloxacin (From Cipro) Allergy Unknown swelling Verified 10/11/24 07:05 Family History Mother CAD (coronary artery disease) Kidney disease Father Heart disease CHF Lung cancer Uncle Myocardial infarction Paternal from [place] age 38 Surgical History Hx of cystoscopy History of prostatectomy (07/05/20) History of amputation of finger of right hand History of left inguinal hernia repair History of bilateral inguinal hernia repair History of arthroscopy of left knee Social History household members: spouse current occupational status: employed Smoking Status: Never smoker Smokeless tobacco user: chewing tobacco and other alcohol intake: current alcohol intake frequency: a few times a week Alcohol type: beer details: 12 pack or more in a week substance use type: does not use caffeine: No ROS Constitutional Constitutional: Reports anorexia; Denies fever(s) Eyes Eyes: Denies blurry vision ENT HEENT: Denies dysphagia Cardiovascular Cardiovascular: Reports chest pain Respiratory/Chest Respiratory/Chest: Denies cough Gastrointestinal Gastrointestinal: Reports abdominal pain and nausea Genitourinary Genitourinary: Denies dysuria Musculoskeletal Musculoskeletal: Denies joint swelling Integumentary Integumentary: Denies jaundice Neurologic Neurologic: Denies focal weakness Psychiatric Psychiatric: Denies depression Endocrine Endocrinology: Denies palpitations Hematologic/Lymphatic Hematologic/Lymphatic: Denies easy bleeding Physical Exam Const alert, oriented x3 and no apparent distress HEENT normocephalic and head/scalp atraumatic Chest Chest Narrative: Left chest port in place clean dry and intact Resp normal respiratory effort Cardio regular rate GI soft to palpation; Negative for non-distended Palpation: tender epigastric, RUQ and Isbell's sign; Negative for guarding Extremity no clubbing, cyanosis or edema Neuro CN's II-XII intact bilaterally Psych mental status grossly normal Lab / Micro Data 10/11/24 07:45 10/11/24 07:45 Labs: Laboratory Results - last 24 hr 10/11/24 07:45: WBC 11.7 H, RBC 4.07 L, Hgb 11.4 L, Hct 34.4 L, MCV 84.5, MCH 28.0, MCHC 33.1, RDW Std Deviation 45.7 H, RDW Coeff of Emily 14.8 H, Plt Count 358, MPV 9.2, Immature Gran % (Auto) 1.400 H, Neut % (Auto) 84.8 H, Lymph % (Auto) 5.4 L, Madison % (Auto) 8.0, Eos % (Auto) 0.1, Baso % (Auto) 0.3, Absolute Neuts (auto) 10.0 H, Absolute Lymphs (auto) 0.63 L, Nucleated RBC % 0, Sodium 133, Potassium 3.6, Chloride 99, Carbon Dioxide 20.6 L, Anion Gap 14, BUN 24 H, Creatinine 1.44 H, Estim CreatClear Calc 63.94, Est GFR (MDRD) Non-Af 55 L, BUN/Creatinine Ratio 16.6, Glucose 149 H, Calcium 9.0, Total Bilirubin 0.99, AST22, ALT 16, Alkaline Phosphatase 152 H, Troponin T High Sens 30 H, NT proBNP II896, Total Protein 7.0, Albumin 3.4, Globulin 3.6, Albumin/Globulin Ratio 0.9, Lipase 15 Imaging Radiology Impression Chest CTA 10/11/24 07:46 IMPRESSION: 1. No evidence of pulmonary emboli. 2. Aneurysmal dilatation of the ascending thoracic aorta. 3. Atelectasis or pneumonia in the middle lobe of the right lung in the lower lobe of both lungs asdescribed. 4. Other findings as noted. Reading Location: [id number] Abdomen/Pelvis CT 10/11/24 08:00 IMPRESSION: Acute cholecystitis with inflammatory process affecting the right upper quadrantand transiting hepatic flexure of the colon. Reading Location: [facility] Charges/Coding Visit Charges Inpatient E&M: 52889 Init Hosp L3 10/11/24 1250 Cosigner Signature (if applicable): CC: Dr. Carlitos Brewer DO~ Signed [facility]06-16-2025 Discharge summary [facility] Medical Records Department [address] [place] [address] Emergency Department Summary 10/11/24 MR#: [id number] Acct: [id number] Name: DANNIE EDMONDSON Rep #:[id number] : 1960 63 From: Darron Washington DO PCP: Dr. Carlitos Brewer DO Status:REG ER Location: ED HPI History of Present Illness Chief Complaint: General Illness Narrative Narrative: Patient is a 63-year-old male with a past medical history of prostate cancer with metastases, paroxysmal atrial flutter on Xarelto, congestive heart failure,GERD, DVT, hypertension who presents to the emergency department with a chief complaint of shortness of breath, right-sided chest pain, constipation and abdominal pain. Patient states that he just went to [place] for bone scan and CT scans and just returned. He states that he has worsening shortness of breathwith exertion and states that hefeels like his lungs are filled with fluid he states that he has never had to have this drained offhis lungs before. Patientdenies any sick contacts. [facility] Medical History Hoarseness of voice Bilateral lower extremity edema Encounter for chemotherapy management History of steroid therapy Arthritis Dietary restriction Gastric reflux Patient uses snuff Shortness of breath on exertion History of pain when walking History of edema History of atrial fibrillation Encounter for education Metastasis to bone Regional lymph node metastasis present Rising PSA following treatment for malignant neoplasm of prostate Prostate cancer metastatic to intraabdominal lymph node Edema History of COVID-19 Wears hearing aid Wears contact lenses Alcohol use DVT (deep venous thrombosis) Back pain Injury of head and neck Migraine headache History of echocardiogram History of stress test Cardiology follow-up encounter Hypertension Prostate cancer Acute on chronic diastolic (congestive) heart failure Paroxysmal supraventricular tachycardia Asthma Paroxysmal atrial flutter (08/18/18) Intermittent palpitations Obesity Home Medications ?Medication ?Instructions ?Recorded ?Last Taken ?Type albuterol sulfate 90 mcg/actuation 2 puff inhalation Q 6H PRN Asthma 09/07/18 11/15/20 06:00 History aerosol inhaler (Ventolin HFA) albuterol sulfate 2.5 mg/3 mL 2.5 mg inhalation Q6H UT N PRN 06/28/20 08/25/23 History (0.083 %) solution for nebulization Asthma montelukast 10 mg tablet 10 mg PO QHS asthma 07/05/20 09/09/23 History lidocaine-prilocaine 2.5 %-2.5 % 1 applic topical ONCE PRN port 07/07/23 Unknown Rx topical cream access 30 days #30 grams oxycodone 10 mg tablet 10 mg PO Q8H PRN pain 08/17/23 History calcium carbonate (Calcium 600) 600 mg PO DAILY 09/09/23 History cholecalciferol (vitamin D3) 50 50 mcg PO DAILY 09/09/23 History mcg (2,000 unit) capsule (Vitamin D3) wfatgwn-ranayxgtbnomq-nhidnmve 250 1 tab PO Q4-6H PRN pain 10/06/23 Unknown History mg-250 mg-65 mg tablet (Excedrin Migraine) fluticasone 100 mcg-salmeterol 50 1 inh inhalation YOVANY LY asthma 10/06/23 Unknown History mcg/dose blistr powdr for inhalation (Advair Diskus) omeprazole 20 mg tablet,delayed 20 mg PO DAILY 4 Unknown History release flecainide 100 mg tablet 100 mg PO BID #180 TABLETS 0 08/03/24 Unknown Rx leuprolide (3 month) 22.5 mg (3 mg subcut 08/03/24 Unk nown History month) subcutaneous syringe (Eligard) metoprolol succinate 100 mg 100 mg PO DAILY bp #90 tab s 08/03/24 Unknown Rx tablet,extended release 24 hr polyethylene glycol 3350 17 g PO QDAY PRN 08/03/24 Unk nown History gram/dose oral powder (Miralax) rivaroxaban 20 mg tablet 20 mg PO QHS BLOOD THINNER # 90 tabs 08/03/24 Unknown Rx albuterol sulfate 1.25 mg/3 mL 1 inhalation 4X/DAY PRN PRN 10/11/24 Unknown History solution for nebulization shortness of breath or wheez ing tizanidine 4 mg tablet 4 mg PO TID 10/11/24 Unknown History Allergy/AdvReac Type Severity Reaction Status Date / Time ciprofloxacin (From Cipro) Allergy Unknown swelling Verified 10/11/24 07:05 Family History Mother CAD (coronary artery disease) Kidney disease Father Heart disease CHF Lung cancer Uncle Myocardial infarction Paternal from [place] age 38 Surgical History Hx of cystoscopy History of prostatectomy (07/05/20) History of amputation of finger of right hand History of left inguinal hernia repair History of bilateral inguinal hernia repair History of arthroscopy of left knee Social History household members: spouse current occupational status: employed Smoking Status: Never smoker Smokeless tobacco user: chewing tobacco and other alcohol intake: current alcohol intake frequency: a few times a week Alcohol type: beer details: 12 pack or more in a week substance use type: does not use caffeine: No ROS ROS ED ROS Narrative Constitutional: Denies fevers, chills, headaches Cardiovascular: Complains of right sided rib/chest pain Respiratory: Complains shortness of breath denies coughing wheezing Abdomen: Complains of constipation and abdominal pain as noted above denies vomiting or diarrhea denies dark tarry stools or blood in his stool : Denies urinary symptoms Neurological: Denies numbness, weakness, tingling Musculoskeletal: Complains of left-sided back pain Skin: Denies any rashes or lesions EXAM Physical Exam Narrative Exam Narrative: General: Patient lying in bed resting comfortably did not appear to be acute distress Head: Atraumatic, normocephalic Eyes: PERRL bilaterally, EOMI bilateral, no conjunctival injection noted Neck: Soft, supple, trachea midline Cardiovascular: Regular in rhythm no murmurs gallops rubs noted Respiratory: Clear to auscultation bilaterally Abdomen: Soft, nondistended, diffuse tenderness to palpation no rebound or guarding on exam Extremities: +4/5 strength noted in the bilateral upper and lower extremities, radial pulses +2/4 in the bilateral extremities, no pedal edema on exam Neurological: Patient follow commands knew that he was at [facility] Skin: Warm, dry, intact no rashes or lesions noted Const Vital Signs: 10/11/24 07:05 10/11/24 07:36 10/11/24 09:04 Temperature 98.2 F 98.2 F Temperature Source Oral Oral Pulse Rate 82 80 Respiratory Rate 20 H 13 Respiratory Effort Short of Breath Respiratory Pattern Tachypnea Blood Pressure 101/72 102/68 Blood Pressure Mean 81 79 Pulse Ox 98 93 Oxygen Delivery Method Room Air Room Air 10/11/24 11:00 Temperature Temperature Source Pulse Rate 88 Respiratory Rate 16 Respiratory Effort Respiratory Pattern Blood Pressure 96/64 Blood Pressure Mean 74 Pulse Ox 98 Oxygen Delivery Method MDM MDM MDM Narrative Medical decision making narrative: Patient is a 63-year-old male who presented to the emergency department with a chief complaint of dyspnea on exertion, right sided chest wall pain and left back pain. On the differential diagnosis includes but not limited to CHF exacerbation, ACS, pneumothorax, pneumonia, worsening metastases, malignant pleural effusion, PE. Once workup is obtained reviewed he will be reevaluated. Patient's CBC was reviewed and showed a leukocytosis of 11,000, hemoglobin 11.4,platelet count of 358. Patient sodium was 133, potassium 3.6, creatinine was 1.44. Patient's AST and ALT are 22 and 16 respectively, troponin was 30 with a delta troponin pending. Patient's EKG was reviewed as well which showed sinus rhythm with a rate of 78 bpm. Patient's proBNP normal at 896, lipase normal at 15. Patient's total bilirubin normal at 0.99. Patient's CTA of the chest was reviewed and showed no evidence of pulmonary emboli. Aneurysmal dilation of theascending thoracic aorta which measures 4.3 in themid ascending and 2.5 in the proximal descending. Atelectasis or pneumonia in the middle lobe of the right lung in the lower lobe of both lungs as described. After this was reviewed patient was ordered Rocephin and azithromycin at 9:[address] ab and pelvis with IV contrast was pending. Patient CT abdomen pelvis IV contrast reviewed and showed acute cholecystitis with inflammatory process affecting the right upper quadrant and transhepatic flexure of the colon. Repeat abdominal exam patient has significant tenderness palpation of the right upper quadrant. Reach out to on-call general surgeon Dr. Pruett who states that she will talk with interventionalradiology to see if they can place a drain since he is on Xarelto. Patient was given Zosyn at 9:[address] Pruett states that admit the patient to the hospitalist team hold Xarelto and drain will be placed in the morning. Will discuss case with hospitalist for admission. Discussed case with hospitalist Dr. Watkins who accept patient for admission. Lab Data Labs: Laboratory Results - last 24 hr 10/11/24 10/11/24 10/11/24 07:45 09:45 11:44 WBC 11.7 H RBC 4.07 L Hgb 11.4 L Hct 34.4 L MCV 84.5 MCH 28.0 MCHC 33.1 RDW Std Deviation 45.7 H RDW Coeff of Emily 14.8 H Plt Count 358 MPV 9.2 Immature Gran % (Auto) 1.400 H Neut % (Auto) 84.8 H Lymph % (Auto) 5.4 L Madison % (Auto) 8.0 Eos % (Auto) 0.1 Baso % (Auto) 0.3 Absolute Neuts (auto) 10.0 H Absolute Lymphs (auto) 0.63 L Nucleated RBC % 0 Sodium 133 Potassium 3.6 Chloride 99 Carbon Dioxide 20.6 L Anion Gap 14 BUN 24 H Creatinine 1.44 H Estim Creat Clear Calc 63.94 Est GFR (MDRD) Non-Af 55 L BUN/Creatinine Ratio 16.6 Glucose 149 H Calcium 9.0 Total Bilirubin 0.99 AST 22 ALT 16 Alkaline Phosphatase 152 H Troponin T High Sens 30 H Troponin T Hi Sens 2 Hr 27 H Troponin T Hi Sens 4Hr 24 H NT pro BNP II 896 Total Protein 7.0 Albumin 3.4 Globulin 3.6 Albumin/Globulin Ratio 0.9 Lipase 15 Radiography Diagnostic Testing: Clinical Impression(s) from Imaging Studies Chest CTA 10/11/24 07:46 IMPRESSION: 1. No evidence of pulmonary emboli. 2. Aneurysmal dilatation of the ascending thoracic aorta. 3. Atelectasis or pneumonia in the middle lobe of the right lung in the lower lobe of both lungs asdescribed. 4. Other findings as noted. Reading Location: [id number] Abdomen/Pelvis CT 10/11/24 08:00 IMPRESSION: Acute cholecystitis with inflammatory process affecting the right upper quadrantand transiting hepatic flexure of the colon. Reading Location: [facility] Discharge Plan Triage Chief Complaint: General Illness ED Provider: Darron Washington Dx/Rx/DC Orders Clinical Impression: Abdominal pain, Prostate cancer, Metastasis to bone, Paroxysmal atrial flutter,Acute cholecystitis Prescriptions: No Action albuterol sulfate [Ventolin HFA] 90 mcg/actuation HFA aerosol inhaler 2 puff INHALATION Q6H PRN (Reason: Asthma) Eligard (3 month) 22.5 mg syringe subcut polyethylene glycol 3350 [Miralax] 17 gram/dose powder PO QDAY PRN flecainide 100 mg tablet 100 mg PO BID Qty: 180 3RF metoprolol succinate 100 mg tablet extended release 24 hr 100 mg PO DAILY Qty: 90 3RF rivaroxaban 20 mg tablet 20 mg PO QHS Qty: 90 3RF lidocaine-prilocaine 2.5-2.5 % cream 1 applic topical ONCE PRN (Reason: port access) 30 Days Qty: 30 2RF oxycodone 10 mg tablet 10 mg PO Q8H PRN (Reason: pain) Excedrin Migraine 250-250-65 mg tablet 1 tab PO Q4-6H PRN (Reason: pain) omeprazole 20 mg tablet,delayed release (DR/EC) 20 mg PO DAILY albuterol sulfate 2.5 MG/3 ML solution for nebulization 2.5 mg INHALATION Q6H PRN PRN (Reason: Asthma) montelukast 10 MG tablet 10 mg PO QHS fluticasone propion-salmeterol [Advair Diskus] 100-50 mcg/dose blister with device 1 inh INHALATION DAILY calcium carbonate [Calcium 600] 600 mg calcium (1,500 mg) tablet 600 mg PO DAILY cholecalciferol (vitamin D3) [Vitamin D3] 50 mcg (2,000 unit) capsule 50 mcg PO DAILY tizanidine 4 mg tablet 4 mg PO TID albuterol sulfate 1.25 mg/3 mL solution for nebulization 1 inhalation 4X/DAY PRN PRN (Reason: shortness of breath or wheezing) Primary Care Provider: Carlitos Brewer Referrals: Carlitos Brewer DO [Primary Care Provider] - Print Language: Brazilian Disposition Disposition: Acute Care Hospital [facility] What to do if you have Problems For any increased pain, shortness of breath, bleeding, nausea or vomiting, chestpain, or any unexpected problems, contact your Primary Care Provider. Call [facility] ([phone]) or report tothe closest Emergency Room. Call 911 if necessary. 10/11/24 1222 Cosigner Signature (if applicable): CC: Dr. Carlitos Brewer, ~ Signed [facility]06-16-2025 Radiology Diagnostic study note [facility] Services [address] [place] [address] Abdomen/Pelvis W IV Cont ONLY MR#: [id number] Acct: [id number] Name: DANNIE EDMONDSON Rep #: [id number] : 1960 M 63 From: Pet er Peer DO PCP: Dr. Carlitos Brewer DO Status: REG ER Study:Abdomen/Pelvis W IV Cont ONLY Date of E xam: 10/11/24 Exam# [id number] Ordering Dr: Lane Washington DO PROCEDURE: ABDOMEN/PELVIS W IV CONT ONLY 10/11/2024 REASON FOR EXAM: ABD PAIN, CONSTIPATION. Right-sided chest pain, shortness of breath and fever. Other history includes asthma, hypertension and prostate carcinoma with bone metastases. TECHNIQUE: ABDOMEN/PELVIS W IV CONT ONLY. Coronal and Sagittal reconstruction series were provided. ORAL CONTRAST TYPE: None. AMOUNT: mL CONTRAST: Isovue 370 VOLUME: 100 mL One or more dose reduction techniques were used (e.g., Automated exposure control, adjustment of the mA and/or kV according to patient size, use of iterative reconstruction technique. RADIATION DOSE SUMMARY: CTDlvol: 54.19 1740 mGy DLP: 1740 mGycm COMPARISON: CT exam of March 31, 2024 FINDINGS: Lung bases: Platelike atelectasis in both lung bases. Liver: Several tiny liver cysts. Gallbladder: Fat stranding around the gallbladder with marked gallbladder distension. Edema of the gallbladder wall. Suspect stone in the neck of the gallbladder. Spleen: Unremarkable Pancreas: Small but otherwise normal. Adrenals: Normal Kidneys: Unremarkable Bladder: Identified. Not identified Reproductive Organs: Identified Bowel: At the hepatic flexure there is thickening of the colon wall and pericolic fat stranding at the: Immediately adjacent to the gallbladder the gallbladder inflammatory process is most likely related to the: Findings Appendix: Not identified Lymph nodes: Not identified. Vasculature: Appreciated. Peritoneum / Retroperitoneum: No free air. Traces of free fluid in the right upper quadrant Bones: Osteoblastic processes involving the T12 through L4 vertebral bodies CT/Abdomen/Pelvis W IV Cont ONLY IMPRESSION: Acute cholecystitis with inflammatory process affecting the right upper quadrantand transiting hepatic flexure of the colon. Reading Location[facility] CC: Dr. Carlitos Brewer DO; Dr. Darron Washington DO ~ Plastics Nurse: Signed [facility]06-16-2025 Radiology Diagnostic study note [facility] Services [address] [place] [address] CTA Chest W/WO Contrast MR#: [id number] Acct: [id number] Name: DANNIE EDMONDSON Rep #: [id number] : 1960 M 63 From: Jimmy Cam MD PCP: Dr. Carlitos Brewer DO Status: REG ER Study:CTA Chest W/WO Contrast Date of Exam: 10/11/24 Exam# [id number] Ordering Dr: Lane Washington DO PROCEDURE: CTA CHEST W/WO CONTRAST 10/11/2024 REASON FOR EXAM: SOB, HX OF CANCER TECHNIQUE: CTA CHEST W/WO CONTRAST Multiplanar and multisequence images were obtained. CONTRAST: Information not provided. One or more dose reduction techniques were used (e.g., Automated exposure control, adjustment of the mA and/or kV according to patient size, use of iterative reconstruction technique). RADIATION DOSE SUMMARY: CTDlvol: 71.5 mGy DLP: 2049.85 mGycm COMPARISON: CT chest abdomen and pelvis, 03/31/2024. # of known CTs in the past 12 months: 1 # of known Cardiac Nuclear Medicine Studies in the past 12 months: None FINDINGS: Thoracic Aorta: There is aneurysmal dilatation of the ascending thoracic aorta. There is no evidence of aortic dissection. There is calcific vascular disease of the aortic arch. Measurements (cm): Mid ascendin.3 cm Proximal descendin.5 cm Heart: The heart size is normal. There is a minimal pericardial effusion. There is no calcific vascular disease of the coronary arteries evident. Pulmonary Vessels: There is no evidence of pulmonary emboli. The main pulmonaryartery is normal in diameter. Hardware: There is a chemotherapy port in the left upper chest wall with the tipin the superior vena cava via the left internal jugular vein. Lymph nodes: There is no significant mediastinal or hilar lymphadenopathy. Lungs and Airways: There is peribronchial consolidation again seen in the middlelobe of the right lung consistent with atelectasis or pneumonia. There is peribronchial consolidation in the posteriorbasilar segments of the lower lobes of both lungs, not present previously, consistent with atelectasis or pneumonia. Pleura: There are no pleural effusions. Upper Abdomen: Unremarkable. Chest wall: There is no axillary lymphadenopathy. There is bilateral gynecomastia. There are sclerotic foci in multiple thoracic vertebral bodies consistent with the patient's known metastatic prostate cancer. CT/CTA Chest W/WO Contrast IMPRESSION: 1. No evidence of pulmonary emboli. 2. Aneurysmal dilatation of the ascending thoracic aorta. 3. Atelectasis or pneumonia in the middle lobe of the right lung in the lower lobe of both lungs asdescribed. 4. Other findings as noted. Reading Location: [id number] CC: Dr. Carlitos Brewer DO; Dr. 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 8:57am 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 August 12, 2024 1:07pm Prostate cancer chronic July 1:07pm Regional lymph node metastasis present chronic August 12, 025 1:07pm 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 August 12, 2024 1:07pm 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 August 19, 2024 2:57pm Prostate cancer chronic July 2:57pm Regional lymph node metastasis present chronic August 19, 2 025 2:57pm 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 August 11:31am 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 September 082024 12:38pm Prostate cancer chronic September 08, 2024 12:38pm Regional lymph node metastasis present chronic September 08 12:38pm Acute cholecystitis due to biliary calculus acute October 11, 2024 12:15pm Anticoagulant long-term use acute October 11, 2024 12:15pm Acute cholecystitis resolved October 11, 2024 12:15pm 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 September 272024 3:12pm Prostate cancer chronic September 3:12pm Regional lymph node metastasis present chronic October 19 3:12pm Acute cholecystitis due to biliary calculus acute October 20, 2024 1:24pm Acute cholecystitis resolved October 20, 2024 1:24pm H/O insertion of cholecystostomy tube resolved October 20, 2024 1:24pm 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 October 262024 9:21am Prostate cancer chronic October 9:21am Regional lymph node metastasis present chronic November 04 9:21am [facility] Work Phone: [phone]) 844-646904-08-2025 Evaluation note* Diagnosis Onset Date Resolution Status Admit Date Dyspnea on exertion acute August 03, 2024 8:57am Paroxysmal atrial 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, 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, 2024 8:57am 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 August 12, 2024 1:07pm Prostate cancer chronic July 1:07pm Regional lymph node metastasis present chronic August 12, 2 025 1:07pm 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 August 12, 2024 1:07pm 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 August 19, 2024 2:57pm Prostate cancer chronic July 2:57pm Regional lymph node metastasis present chronic August 19, 2 025 2:57pm 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 August 11:31am 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 September 082024 12:38pm Prostate cancer chronic September 08, 2024 12:38pm Regional lymph node metastasis present chronic September 08 12:38pm Acute cholecystitis due to biliary calculus acute October 11, 2024 12:15pm Anticoagulant long-term use acute October 11, 2024 12:15pm Acute cholecystitis resolved October 11, 2024 12:15pm 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 September 272024 3:12pm Prostate cancer chronic September 3:12pm Regional lymph node metastasis present chronic October 19 3:12pm Acute cholecystitis due to biliary calculus acute October 20, 2024 1:24pm Acute cholecystitis resolved October 20, 2024 1:24pm H/O insertion of cholecystostomy tube resolved October 20, 2024 1:24pm 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 October 262024 9:21am Prostate cancer chronic October 9:21am Regional lymph node metastasis present chronic November 04 9:21am S/P laparoscopic cholecystectomy acute November 10, 2024 9:31am 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, 2024 8:57am 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 August 12, 2024 1:07pm Prostate cancer chronic July 1:07pm Regional lymph node metastasis present chronic August 12, 2 025 1:07pm 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 August 12, 2024 1:07pm 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 August 19, 2024 2:57pm Prostate cancer chronic July 2:57pm Regional lymph node metastasis present chronic August 19, 2 025 2:57pm 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 August 11:31am 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 September 082024 12:38pm Prostate cancer chronic September 08, 2024 12:38pm Regional lymph node metastasis present chronic September 08 12:38pm Acute cholecystitis due to biliary calculus acute October 11, 2024 12:15pm Anticoagulant long-term use acute October 11, 2024 12:15pm [facility] Work Phone: 1(263) 555-595103-06-2025 Evaluation note* Diagnosis Onset Date Resolution Status Admit Date 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 July 01, 2024 2:16pm Prostate cancer chronic June 2:16pm Regional lymph node metastasis present chronic July 01 2:16pm Dyspnea on exertion acute August 03, 2024 8:57am Paroxysmal atrial 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, 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, 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 8:57am 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 August 12, 2024 1:07pm Prostate cancer chronic July 1:07pm Regional lymph node metastasis present chronic August 12, 2 025 1:07pm 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 August 12, 2024 1:07pm 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 August 19, 2024 2:57pm Prostate cancer chronic July 2:57pm Regional lymph node metastasis present chronic August 19, 2 025 2:57pm 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 August 11:31am 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 September 082024 12:38pm Prostate cancer chronic September 08, 2024 12:38pm Regional lymph node metastasis present chronic September 08 12:38pm Acute cholecystitis acute October 11, 2024 12:15pm Acute cholecystitis due to biliary calculus acute October 11, 2024 12:15pm Anticoagulant long-term use acute October 11, 2024 12:15pm [facility] Work Phone: 1(542) 375-194503-06-2025 Evaluation note* Diagnosis Onset Date Resolution Status Admit Date 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 July 01, 2024 2:16pm Prostate cancer chronic June 2:16pm Regional lymph node metastasis present chronic July 01 2:16pm Dyspnea on exertion acute August 03, 2024 8:57am Paroxysmal atrial 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, 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, 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 8:57am 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 August 12, 2024 1:07pm Prostate cancer chronic July 1:07pm Regional lymph node metastasis present chronic August 12, 2 025 1:07pm 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 August 12, 2024 1:07pm 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 August 19, 2024 2:57pm Prostate cancer chronic July 2:57pm Regional lymph node metastasis present chronic August 19, 2 025 2:57pm 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 August 11:31am 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 September 082024 12:38pm Prostate cancer chronic September 08, 2024 12:38pm Regional lymph node metastasis present chronic September 08 12:38pm Acute cholecystitis acute October 11, 2024 12:15pm Acute cholecystitis due to biliary calculus acute October 11, 2024 12:15pm Anticoagulant long-term use acute October 11, 2024 12:15pm 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 September 272024 3:12pm Prostate cancer chronic September 3:12pm Regional lymph node metastasis present chronic October 19 3:12pm [employer] Work Phone: 1(167) 168-136303-06-2025 Evaluation note* Diagnosis Onset Date Resolution Status Admit Date 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 July 01, 2024 2:16pm Prostate cancer chronic June 2:16pm Regional lymph node metastasis present chronic July 01 2:16pm Dyspnea on exertion acute August 03, 2024 8:57am Paroxysmal atrial 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, 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, 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 8:57am 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 August 12, 2024 1:07pm Prostate cancer chronic July 1:07pm Regional lymph node metastasis present chronic August 12, 2 025 1:07pm 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 August 12, 2024 1:07pm 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 August 19, 2024 2:57pm Prostate cancer chronic July 2:57pm Regional lymph node metastasis present chronic August 19, 2 025 2:57pm 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 August 11:31am 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 September 082024 12:38pm Prostate cancer chronic September 08, 2024 12:38pm Regional lymph node metastasis present chronic September 08 12:38pm Acute cholecystitis due to biliary calculus acute October 11, 2024 12:15pm Anticoagulant long-term use acute October 11, 2024 12:15pm Acute cholecystitis resolved October 11, 2024 12:15pm 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 September 272024 3:12pm Prostate cancer chronic September 3:12pm Regional lymph node metastasis present chronic October 19 3:12pm Acute cholecystitis due to biliary calculus acute October 20, 2024 1:24pm Acute cholecystitis resolved October 20, 2024 1:24pm H/O insertion of cholecystostomy tube resolved October 20, 2024 1:24pm [facility] Work Phone: 1(680) 515-136901-27-2025 Evaluation note* Diagnosis Onset Date Resolution Status Admit Date Back pain acute May 24, 2024 9:27am 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 2024 9:27am Prostate cancer chronic April 292024 9:27am Regional lymph node metastasis present chronic May 24, 2024 9:27am 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 2024 12:23pm 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 2024 12:24pm Prostate cancer chronic May 31, 2024 12:24pm Regional lymph node metastasis present chronic May 31, 2024 12:24pm 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 July 01, 2024 2:16pm Prostate cancer chronic June 2:16pm Regional lymph node metastasis present chronic July 01 2:16pm Dyspnea on exertion acute August 03, 2024 8:57am 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 atrial 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, 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, 2024 8:57am 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 August 12, 2024 1:07pm Prostate cancer chronic July 1:07pm Regional lymph node metastasis present chronic August 12, 2 025 1:07pm 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 August 12, 2024 1:07pm 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 August 19, 2024 2:57pm Prostate cancer chronic July 2:57pm Regional lymph node metastasis present chronic August 19, 2 025 2:57pm 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 August 11:31am 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 September 082024 12:38pm Prostate cancer chronic September 08, 2024 12:38pm Regional lymph node metastasis present chronic September 08 12:38pm [employer] Work Phone: 1(588) 964-728204-30-2024 History and physical note Author Matthew Medellin [facility] August 26, 2023 7:05am Note Date/Time August 26, 2023 7:[address] [place] [address] Medical Records Department [address] [place] [address] History & Physical Exam 08/26/23 0702 MR#: [id number] Acct: [id number] Name: DANNIE EDMONDSON Rep #:[id number] : 1960 62 From: Matthew Jordan PCP: Dr. Carlitos Brewer, Status:[facility] Location: [place] [address] History and Physical Date of Admission: 08/26/23 Date of Service: 07/10/23 MR#: [id number] Acct: [id number] Name: DANNIE EDMONDSON Rep #: [id number] : 1960 Provider: Dr. Matthew Medellin MD Age/Sex: 62/M Location: [facility] Status: Signed Intake Vital Signs 07/06/2406:59 07/09/2412:30 Height 5 ft 10 in 5 ft 10 in Weight: 255 lb 5 oz 256 lb BMI 36.6 36.7 BP 147/87 H 128/87 H Blood Pressure Location Lt brachial Rt brachial Position Sitting Sitting Respiration 18 17 Pulse 70 115 H Pulse Source Monitor Monitor Temp 97.0 F L 97.2 F L Temp Source Temporal Pulse Oximetry (%) 98 95 Oxygen Delivery Method room air room air Intake Visit Reasons: PORT PLACEMENT Chief Complaint: port placement Is patient in pain?: No Allergies ciprofloxacin [From Cipro] Allergy (Unknown, Verified 07/10/23 13:34) swelling Medications albuterol sulfate 90 mcg/actuation aerosol inhaler (Ventolin HFA) 2 puff inhalation Q6H PRN Asthma 09/07/18 [History Confirmed 07/10/23] albuterol sulfate 2.5 mg/3 mL (0.083 %) solution for nebulization 2.5 mg inhalation Q6H PRN PRN Asthma 06/28/20 [History Confirmed 07/10/23] montelukast 10 mg tablet 10 mg PO QHS asthma 07/05/20 [History Confirmed 07/10/23] fluticasone 100 mcg-salmeterol 50 mcg/dose blistr powdr for inhalation (Advair Diskus) 1 inh inhalation DAILY asthma 11/08/20 [History Confirmed 07/10/23] enzalutamide 40 mg capsule (Xtandi) 160 mg PO DAILY 06/07/22 [History Confirmed 07/10/23] flecainide 100 mg tablet See Rx Instructions .Route .COMPLEX #180 tabs 01/22/23 [Rx Confirmed 07/10/23] rivaroxaban 20 mg tablet 20 mg PO QHS BLOOD THINNER #90 tabs 05/29/23 [Rx Confirmed 07/10/23] metoprolol succinate 50 mg tablet,extended release 24 hr 50 mg PO DAILY bp #90 tabs 06/16/23 [Rx Confirmed 07/10/23] hydrocodone-acetaminophen 5-325mg 5mg-325mg 1 tab PO BID PRN 07/01/23 [History Confirmed 07/10/23] dexamethasone 4 mg tablet 8 mg (2 x 4 mg) PO .COMPLEX #12 tabs 07/07/23 [Rx Confirmed 07/10/23] duloxetine 30 mg capsule,delayed release 60 mg PO DAILY 07/07/23 [History Confirmed 07/10/23] lidocaine-prilocaine 2.5 %-2.5 % topical cream 1 applic topical ONCE PRN port access 30 days #30 grams 07/07/23 [Rx Confirmed 07/10/23] ondansetron 4 mg disintegrating tablet 4 mg PO Q8H PRN nausea and vomiting #30 tabs 07/07/23 [Rx Confirmed 07/10/23] [facility] Medical History (Updated 07/10/23 @ 15:[address] Matthew Medellin MD) Acute on chronic diastolic (congestive) heart failure Alcohol use Asthma Back pain Cardiology follow-up encounter DVT (deep venous thrombosis) Easy bruising Edema Encounter for education GERD (gastroesophageal reflux disease) History of COVID-19 History of echocardiogram History of kidney stones History of stress test Hypertension Injury of head and neck Intermittent palpitations Metastasis to bone Migraine headache Obesity Paroxysmal atrial flutter (08/18/18) Paroxysmal supraventricular tachycardia Prostate cancer Prostate cancer metastatic to intraabdominal lymph node Regional lymph node metastasis present Rising PSA following treatment for malignant neoplasm of prostate Wears contact lenses Wears hearing aid Surgical History History of amputation of finger of right hand History of arthroscopy of left knee History of bilateral inguinal hernia repair History of left inguinal hernia repair History of prostatectomy (03/10/21) Family History Mother CAD (coronary artery disease) Kidney diseaseFather Heart disease CHF Lung cancerUncle Myocardial infarction Paternal from [place] age 38 Social History household members: spouse current occupational status: employed Smoking Status: Never smoker Smokeless tobacco user: chewing tobacco and other alcohol intake: current alcohol intake frequency: a few times a week Alcohol type: beer details: 12 pack or more in a week substance use type: does not use caffeine: No HPI HPI HPI: Patient is a 62-year-old male who presents for consideration of port placement. Patient was diagnosed with prostate cancer in 2020 and underwent radical prostatectomy followed by radiation. He notes that following surgery his PSA started climbing. He then had metastatic prostate cancer confirmed in 2021 followed by serial radiation treatments both here in [place] as well as in [place] as part of the [facility] cancer network. Recent bone scan suggests vertebralmetastasis and he has met with Dr. Granger who has recommended proceeding for hormonal chemotherapy, however, Mr. Edmondson states that he is still undecided and due to follow-up with oncology today regarding a decision. In the meantime he shares that he and his plan to travel to [place] for a vacation the first week of July. He makes it clear that he would not want to go through with any intervention until after this trip. Patient has no prior history of central line placement. Patient has no pacemaker or intracardiac defibrillator but he is diagnosed with atrial flutter and is experiencing increasing frequency of this arrhythmia. He is pending follow-up stress testing and echocardiogram with cardiology on 07/23/2023. Patient has no renal dysfunction. Mr. Edmondson does have a history of MRSA infection along his left flank some 6 to 7 years ago. He has also been treated for presumptive staph infections 1-2 times since because of a similar presentation. Mr. Edmondson is currently prescribed Xarelto for his history of atrial flutter. ROS General General: Yes weight change and fatigue; No appetite, colon cancer, breast cancer or weakness HEENT HEENT: No difficulty swallowing, eye injury, eye surgery, swollen glands or hoarseness Endo Endocrine: No thyroid disease, diabetes mellitus, thyroid cancer, Hair loss, heat intolerance or cold intolerance Skin Skin: No rash or changing moles Musc Musculoskeletal: Yes back problems; No arthritis, rheumatoid arthritis, gout or joint pain Cardio Cardiovascular: Yes atrial fibrillation; No murmur, pacemaker, heart disease, high blood pressure, heart attack, heart stent, palpitations, shortness of breat with exertion or chest pain Psych Psychiatric: No depression, anxiety or hearing voices Resp Respiratory: Yes shortness of breath, No sleep apnea, No cough, No COPD, Yes asthma, No emphysema and No wheezing Gastro Gastrointestinal: No abdominal pain, No nausea or vomiting, No diarrhea, No constipation, No blood in stool, Yes acid reflux, No hemorrhoids, No ulcers, No gallbladder problem and No black,tarry stools Leroy Hematologic: Yes blood thinners, No blood disorders, No bleeding, No anemia and No blood clots Neuro Neurologic: No system reviewed and no additional complaints, except as documented, No as per HPI, No abnormal gait, No abnormal hearing, No abnormal movements, No abnormal speech, No behavioral changes, No burning sensations, No confusion, No convulsions, No disequilibrium, No dizziness, No localized weakness, No frequent falls, No headache(s), No lack of coordination, No loss ofvision, No memory loss, No numbness, No other visual disturbances, No radicular pain, No restless legs, No sensory deficit, No syncope, No tingling, No tremor(s), No weakness and No other Exam Const General: cooperative and anxious Orientation: alert, awake and oriented x3 Neck Other: No scars or rashes Chest Other: No scars or rashes Assessment and Plan Assessment and Plan (1) Encounter for insertion of venous access port: Status: Acute Comment: Patient is a 62-year-old male with evidence of bony mets from prostate cancer first diagnosed in 2020. He is currently on the fence as to whether or not he wants to proceed with chemotherapy as recommended by oncology following serial rounds of adjuvant radiation therapy. I held a lengthy conversation with patient and his suggesting that I would not want to proceed with port placement if he is disinclined to proceed with chemotherapy. This is largely due to wanting to justify the inherent risks of the procedure with the expected benefit of having durable venous access for the use during chemotherapy. . and Mrs. Edmondson expressed understanding of this rationale. In the event that patient decides to proceed with chemotherapy I did hold a discussion regarding the advantages of ports, their infection risk, and the expected procedure/recovery involved with a port placement. Mr. 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 Given the seriousness of this past time I suggest that we could simply plan for a left-sided port placement to try to circumvent any issues. Lastly, given patient's history of MRSA infection I would like to screen him today for MRSA colonization of the nares and complete treatment if found to be positive. He agrees with this course of action and we will obtain this testing today. Plan: ? Follow-up MRSA swab results ? Follow-up patient's final decision regarding possible port placement and if patient decides in favor of proceeding with port will plan for left, possible right internal jugular Port-A-Cath placement in the OR (2) Metastasis to bone: Status: Chronic I have examined the patient the following changes are noted: Patient has agreed to go forward with chemotherapy as recommended by oncology and thus presents today for left possible right Port-A-Cath placement. He denies any interval health updates, but after nursing raises the issue does confess to a musculoskeletal injury of his left shoulder. On exam there are no new rashes orlesions of the upper chest bilaterally. Procedure and post procedure expectations were reviewed?including a overview of what to expect with accessingthe port and chemotherapy as well as postoperative care instructions. All questions were answered from patient and spouse will now proceed to the OR for port placement using ultrasound and fluoroscopic guidance. 08/26/23 0705 <Electronically signed by Matthew Medellin MD> Cosigner Signature (if applicable): CC: Dr. Matthew Medellin MD; Dr. Carlitos Brewer, DO~ Signed [facility] Work Phone: 1(397) 332-659404-24-2024 Note ORIGINAL EXAMINATION: XR left shoulder three views 08/20/2023 10:51 am COMPARISON: None HISTORY: ORDERING SYSTEM PROVIDED HISTORY: Reason for Exam: L shoulder pain with decreased ROM 2/2 fall, FINDINGS: No acute fracture, dislocation, lytic process or periosteal reaction is seen in the visualized bones and joints. No erosive type of arthritis. No periarticular soft tissue calcification. Glenohumeral joint is unremarkable. 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 Normal subacromial space. Included left upper ribs show no obvious displaced fracture. IMPRESSION: No acute skeletal abnormality is seen. . Mild AC joint arthrosis. Interpreted by: Mahendra Coronel MD Preliminary Report By: Mahendra Coronel MD Electronically signed By Mahendra Coronel MD Dictated Date: 08/20/2023 11:34:15 PM Prelim Date: 08/20/2023 11:35:09 PM Sign Date: 08/20/2023 11:35:09 PM Ordering Provider: [facility]06-17-2022 Procedure note* Sukumar Whitfield MD, PhD - 10/12/2021 9:00 AM EDTAssociated Order(s): GENERAL PROCEDURE PROCEDURE NOTE FRACTIONATED STEREOTACTIC RADIOTHERAPY [...] as a presacral LN that was in theprior salvage radiation field. He will be undergoing RP dustin irradiation with Dr. Borrero at [place], with plan to receive 20 fractions delivering 40 Gy to the elective dutsin region with 55 Gy boostto the gross nodes. He is receiving SBRT to the persistent presacral LN disease that is located within the prior salvage radiation field. PROCEDURE DETAILS: CT for treatment planning was previously obtained. The images were transferred to the treatment planning computer. The target and adjacent normal structures were outlined. A radiation treatment plan was developed to maximize coverage and minimize dose to adjacent tissues. Qualityassurance checks were performed on the plan. The patient was immobilized utilizing the [employer] stereotactic body frame. Cone beam CT centered [...] approximately 4-8 weeks. Sukumar Whitfield MD, PhD [employer] Department of Radiation Oncology [facility] Work Phone: 1(874) 318-652106-17-2022 Procedure note* Sukumar Whitfield MD, PhD - 10/12/2021 9:00 AM EDTAssociated Order(s): GENERAL PROCEDURE PROCEDURE NOTE FRACTIONATED STEREOTACTIC RADIOTHERAPY [...] as a presacral LN that was in theprior salvage radiation field. He will be undergoing RP dustin irradiation with Dr. Borrero at [place], with plan to receive 20 fractions delivering 40 Gy to the elective dustin region with 55 Gy boostto the gross nodes. He is receiving SBRT to the persistent presacral LN disease that is located within the prior salvage radiation field. PROCEDURE DETAILS: CT for treatment planning was previously obtained. The images were transferred to the treatment planning computer. The target and adjacent normal structures were outlined. A radiation treatment plan was developed to maximize coverage and minimize dose to adjacent tissues. Qualityassurance checks were performed on the plan. The patient was immobilized utilizing the [employer] stereotactic body frame. Cone beam CT centered [...] approximately 4-8 weeks. Sukumar Whitfield MD, PhD [employer] Department of Radiation Oncology [facility] documented [facility] Instructions* Patient Instructions* Maryjane Steiner RN - 09/20/2021 1:31 PM [...] after which you will start treatment. You maystart treatment earlier than this in some cases. You will leave today with a full schedule of all of your radiation appointments. If there is a timeof day that works best for you for [...] treatment machine is running on time or ifthere is a delay. Allow for about 45-60 [...] for a ticket each day. This includes dye worker parking. You will be given information on reserved parking in the [place] garages. You will be given a special wrist band today that you can use to check in for your treatments. You do not need to go to registration before each radiation treatment. If you have appointments with anyother department at [facility], you must go to registration prior to those appointments. Please call the radiation clinic at [phone] with any questions or concerns. You can also contact your physician via My Chart with any non-urgent issues. My Chart messages are only reviewed during regular business hours. documented in this [facility]05-26-2022 History of Present illness Narrative* Maryjane Steiner RN - 09/20/2021 1:00 PM EDT Dannie Flo [place] was seen 09/20/2021 in Radiation Oncology for a CT Simulation. Dannie Edmondson will start radiation on 10/03/21 and receive 5 treatments. Final treatment will be on 10/12/21. Assessed pt for any further needs with regard to childcare, spiritual, financial, transportation, or psychosocial issues. Further education was provided to Dannieromelia Edmondson regarding side effectsof radiation, the OTV process, and Time Out procedures prior to daily treatments. No further bethanie tance needed at this time. Maryjane Steiner RN documented in this [facility]05-25-2022 History of Present illness Narrative* Asya Lemus RN - 09/19/2021 1:00 PM EDT Patient presents to consult with his . They live in [place], [place] and receive ADT and RT at [facility]. Past medical history, past surgical history, medications, and allergies reviewed with patient and updated in chart. He is here for consult regarding SBRT. Previous RT: + lower abdomen/prostate: Nov 2020- January [address] [facility] Previous/Current Chemotherapy/Immunotherapy: denies Pacemaker: denies ASSESSMENT [...] Dysfunction: Grade 2 notified Asya Lemus RN * Sukumar Whitfield MD, PhD - 09/19/2021 1:00 PM EDT Images from the original note were not included. RADIATION ONCOLOGY CONSULTATION NOTE Referring physician: Self, Self Thank you for requesting a Radiation Oncology consultation for Dannie Edmondson in evaluation of the following: DIAGNOSIS: ICD-10-CM 1. Prostate cancer C61 RAD ONC SIMULATION HISTORY OF PRESENT ILLNESS: Dannie Edmondson is a 60 y.o. gentleman with [...] RP dustin irradiation with Dr. Borrero at [place], with plan to receive 20 fractions delivering 40 Gy to the elective dustin region with 55 Gy boost to the gross nodes. He presents to the [facility] today for consultation regarding [...] pain, or constitutional symptoms. I have reviewed Dannie Edmondson medical, surgical and other pertinent history [...] Radiographic Findings: See HPI ASSESSMENT & PLAN: Dannie Edmondson is a 60 y.o. gentleman with [...] RP dustin irradiation with Dr. Borrero at [place], with plan to receive 20 fractions delivering 40 Gy to the elective dustin region with 55 Gy boost to the gross nodes. He presents to the [facility] today for consultation regarding [...] between the presacral node to the adjacent sigmoidcolon, which should allow safe delivery of SBRT treatment with relatively low exposure of sigmoid co natividad to additional radiation dose. We discussed either concurrent or sequential treatment of his SBRT here at the [facility] with his fractionated EBRT at [place], and patient would prefer concurrent, which is [...] for stereotactic radiation therapy planning followed by every-other- day treatment for 5 fractions over 1.5 weeks. [...] coordination of care. Sukumar Whitfield MD, PhD [employer] Radiation Oncology [facility] * Diagnosis Onset Date Resolution Status Edema acute Intermittent palpitations ch ronic Paroxysmal atrial 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, 2018 [facility] Work Phone: [phone] Evaluation note* Diagnosis Onset Date Resolution Status Paroxysmal atrial 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, 2018 [facility] Work Phone: [phone] 533-924704-23-2019 Evaluation note* Diagnosis Onset Date Resolution Status 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 chronic Regional lymph node metastasis present chronic Dyspnea on exertion acute Paroxysmal atrial 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, 2018 chronic 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 Encounter for education acut e 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 chronic Regional lymph node metastasis present chronic Encounter for insertion of venous access port acute 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 Metastasis to bone [facility] Work Phone: [phone] Evaluation note* Diagnosis Onset Date Resolution Status 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 chronic Regional lymph node metastasis present chronic Dyspnea on exertion acute Paroxysmal atrial 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, 2018 chronic 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 Encounter for education acut e 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 chronic Regional lymph node metastasis present chronic Encounter for insertion of venous access port acute 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 Dyspnea on exertion acute Paroxysmal atrial 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, 2018 chronic 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 chronic 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 [facility] Work Phone: Consult note Author Erasto Torres [facility] Note Date/Time October 26, 2024 7:02p [facility] Medical Records Department [address] [place] [address] Anesthesia Postop Eval II 10/26/241818 MR#: [id number] Acct: [id number] Name: DANNIE EDMONDSON Rep #:[id number] : 1960 63 From: Erasto Torres MD PCP: Dr. 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 Spontaneous unlabored Yes 10/26/24 17:04 WINDOWS PHONE [email or web address] respirations Mental status Awake 10/26/24 17:04 WINDOWS PHONE [email or web address] nausea No 10/26/24 17:04 WINDOWS PHONE [email or web address] Vomiting No 10/26/24 17:04 WINDOWS [email or web address] Anesthesia Postop Eval I: Fluid Summary Crystalloid volume administer 1,000 10/26/24 17:04 WINDOWS [email or web address] (ml) Colloids volume administered ( ml) Blood Product volume administered (ml) Total IV fluid infused 1,000 10/26/24 17:04 WINDOWS [email or web address] [email or web address] Anesthesia Postop Eval I: Summary Notes Anesthesia Complication No 10/26/24 17:04 WINDOWS [email or web address] [email or web address] Anesthesia Complication Comment: Post-operative progress note Anesthesia: Postop Eval II Evaluation Mental status: Awake and Calm Pain Level: 2 nausea: No Vomiting: No Complications Anesthesia Complication: No 10/26/241818 <Electronically signed by Erasto Jordan> Date _ Erasto Meade Signature: Date CC: ~ Signed [facility] Work Phone: Discharge summary Author Darron Washington [facility] Note Date/Time October 11, 2024 12:2 2pm [facility] Medical Records Department [address] [place] [address] Emergency Department Summary 10/11/24 MR#: [id number] Acct: [id number] Name: DANNIE EDMONDSON Rep #:[id number] : 1960 63 From: Darron Washington DO PCP: Dr. Carlitos Brewer DO Status:REG ER Location: ED HPI History of Present Illness Chief Complaint: General Illness Narrative Narrative: Patient is a 63-year-old male with a past medical history of prostate cancer with metastases, paroxysmal atrial flutter on Xarelto, congestive heart failure,GERD, DVT, hypertension who presents to the emergency department with a chief complaint of shortness of breath, right-sided chest pain, constipation and abdominal pain. Patient states that he just went to [place] for bone scan and CT scans and just returned. He states that he has worsening shortness of breathwith exertion and states that he feels like his lungs are filled with fluid he states that he has never had to have this drained off his lungs before. Patientdenies any sick contacts. [facility] Medical History Hoarseness of voice Bilateral lower extremity edema Encounter for chemotherapy management History of steroid therapy Arthritis Dietary restriction Gastric reflux Patient uses snuff Shortness of breath on exertion History of pain when walking History of edema History of atrial fibrillation Encounter for education Metastasis to bone Regional lymph node metastasis present Rising PSA following treatment for malignant neoplasm of prostate Prostate cancer metastatic to intraabdominal lymph node Edema History of COVID-19 Wears hearing aid Wears contact lenses Alcohol use DVT (deep venous thrombosis) Back pain Injury of head and neck Migraine headache History of echocardiogram History of stress test Cardiology follow-up encounter Hypertension Prostate cancer Acute on chronic diastolic (congestive) heart failure Paroxysmal supraventricular tachycardia Asthma Paroxysmal atrial flutter (08/18/18) Intermittent palpitations Obesity Home Medications ?Medication ?Instructions ?Recorded ?Last Taken ?Type albuterol sulfate 90 mcg/actuation 2 puff inhalation Q 6H PRN Asthma 09/07/18 11/15/20 06:00 History aerosol inhaler (Ventolin HFA) albuterol sulfate 2.5 mg/3 mL 2.5 mg inhalation Q6H UT N PRN 06/28/20 08/25/23 History (0.083 %) solution for nebulization Asthma montelukast 10 mg tablet 10 mg PO QHS asthma 07/05/20 09/09/23 History lidocaine-prilocaine 2.5 %-2.5 % 1 applic topical ONCE PRN port 07/07/23 Unknown Rx topical cream access 30 days #30 grams oxycodone 10 mg tablet 10 mg PO Q8H PRN pain 08/17/23 History calcium carbonate (Calcium 600) 600 mg PO DAILY 09/09/23 History cholecalciferol (vitamin D3) 50 50 mcg PO DAILY 09/09/23 History mcg (2,000 unit) capsule (Vitamin D3) aotteue-lndbnfwzfsvqj-onegyknk 250 1 tab PO Q4-6H PRN pain 10/06/23 Unknown History mg-250 mg-65 mg tablet (Excedrin Migraine) fluticasone 100 mcg-salmeterol 50 1 inh inhalation YOVANY LY asthma 10/06/23 Unknown History mcg/dose blistr powdr for inhalation (Advair Diskus) omeprazole 20 mg tablet,delayed 20 mg PO DAILY 4 Unknown History release flecainide 100 mg tablet 100 mg PO BID #180 TABLETS 0 08/03/24 Unknown Rx leuprolide (3 month) 22.5 mg (3 mg subcut 08/03/24 Unk nown History month) subcutaneous syringe (Sorbisensenikki) metoprolol succinate 100 mg 100 mg PO DAILY bp #90 tab s 08/03/24 Unknown Rx tablet,extended release 24 hr polyethylene glycol 3350 17 g PO QDAY PRN 04/08/25 Unk nown History gram/dose oral powder (Miralax) rivaroxaban 20 mg tablet 20 mg PO QHS BLOOD THINNER # 90 tabs 08/03/24 Unknown Rx albuterol sulfate 1.25 mg/3 mL 1 inhalation 4X/DAY PRN PRN 10/11/24 Unknown History solution for nebulization shortness of breath or wheez ing tizanidine 4 mg tablet 4 mg PO TID 10/11/24 Unknown History Allergy/AdvReac Type Severity Reaction Status Date / Time ciprofloxacin (From Cipro) Allergy Unknown swelling Verified 10/11/24 07:05 Family History Mother CAD (coronary artery disease) Kidney disease Father Heart disease CHF Lung cancer Uncle Myocardial infarction Paternal from [place] age 38 Surgical History Hx of cystoscopy History of prostatectomy (07/05/20) History of amputation of finger of right hand History of left inguinal hernia repair History of bilateral inguinal hernia repair History of arthroscopy of left knee Social History household members: spouse current occupational status: employed Smoking Status: Never smoker Smokeless tobacco user: chewing tobacco and other alcohol intake: current alcohol intake frequency: a few times a week Alcohol type: beer details: 12 pack or more in a week substance use type: does not use caffeine: No ROS ROS ED ROS Narrative Constitutional: Denies fevers, chills, headaches Cardiovascular: Complains of right sided rib/chest pain Respiratory: Complains shortness of breath denies coughing wheezing Abdomen: Complains of constipation and abdominal pain as noted above denies vomiting or diarrhea denies dark tarry stools or blood in his stool : Denies urinary symptoms Neurological: Denies numbness, weakness, tingling Musculoskeletal: Complains of left-sided back pain Skin: Denies any rashes or lesions EXAM Physical Exam Narrative Exam Narrative: General: Patient lying in bed resting comfortably did not appear to be acute distress Head: Atraumatic, normocephalic Eyes: PERRL bilaterally, EOMI bilateral, no conjunctival injection noted Neck: Soft, supple, trachea midline Cardiovascular: Regular in rhythm no murmurs gallops rubs noted Respiratory: Clear to auscultation bilaterally Abdomen: Soft, nondistended, diffuse tenderness to palpation no rebound or guarding on exam Extremities: +4/5 strength noted in the bilateral upper and lower extremities, radial pulses +2/4 in the bilateral extremities, no pedal edema on exam Neurological: Patient follow commands knew that he was at [facility] [id number] Skin: Warm, dry, intact no rashes or lesions noted Const Vital Signs: 10/11/24 07:05 10/11/24 07:36 10/11/24 09:04 Temperature 98.2 F 98.2 F Temperature Source Oral Oral Pulse Rate 82 80 Respiratory Rate 20 H 13 Respiratory Effort Short of Breath Respiratory Pattern Tachypnea Blood Pressure 101/72 102/68 Blood Pressure Mean 81 79 Pulse Ox 98 93 Oxygen Delivery Method Room Air Room Air 10/11/24 11:00 Temperature Temperature Source Pulse Rate 88 Respiratory Rate 16 Respiratory Effort Respiratory Pattern Blood Pressure 96/64 Blood Pressure Mean 74 Pulse Ox 98 Oxygen Delivery Method MDM MDM MDM Narrative Medical decision making narrative: Patient is a 63-year-old male who presented to the emergency department with a chief complaint of dyspnea on exertion, right sided chest wall pain and left back pain. On the differential diagnosis includes but not limited to CHF exacerbation, ACS, pneumothorax, pneumonia, worsening metastases, malignant pleural effusion, PE. Once workup is obtained reviewed he will be reevaluated. Patient's CBC was reviewed and showed a leukocytosis of 11,000, hemoglobin 11.4,platelet count of 358. Patient sodium was 133, potassium 3.6, creatinine was 1.44. Patient's AST and ALT are 22 and 16 respectively, troponin was 30 with a delta troponin pending. Patient's EKG was reviewed as well which showed sinus rhythm with a rate of 78 bpm. Patient's proBNP normal at 896, lipase normal at 15. Patient's total bilirubin normal at 0.99. Patient's CTA of the chest was reviewed and showed no evidence of pulmonary emboli. Aneurysmal dilation of theascending thoracic aorta which measures 4.3 in the mid ascending and 2.5 in the proximal descending. Atelectasis or pneumonia in the middle lobe of the right lung in the lower lobe of both lungs as described. After this was reviewed patient was ordered Rocephin and azithromycin at 9:[address] ab and pelvis with IV contrast was pending. Patient CT abdomen pelvis IV contrast reviewed and showed acute cholecystitis with inflammatory process affecting the right upper quadrant and transhepatic flexure of the colon. Repeat abdominal exam patient has significant tenderness palpation of the right upper quadrant. Reach out to on-call general surgeon Dr. Pruett who states that she will talk with interventional radiology to see if they can place a drain since he is on Xarelto. Patient was given Zosyn at 9:[address] Pruett states that admit the patient to the hospitalist team hold Xarelto and drain will be placed in the morning. Will discuss case with hospitalist for admission. Discussed case with hospitalist Dr. Watkins who accept patient for admission. Lab Data Labs: Laboratory Results - last 24 hr 10/11/24 10/11/24 10/11/24 07:45 09:45 11:44 WBC 11.7 H RBC 4.07 L Hgb 11.4 L Hct 34.4 L MCV 84.5 MCH 28.0 MCHC 33.1 RDW Std Deviation 45.7 H RDW Coeff of Emily 14.8 H Plt Count 358 MPV 9.2 Immature Gran % (Auto) 1.400 H Neut % (Auto) 84.8 H Lymph % (Auto) 5.4 L Madison % (Auto) 8.0 Eos % (Auto) 0.1 Baso % (Auto) 0.3 Absolute Neuts (auto) 10.0 H Absolute Lymphs (auto) 0.63 L Nucleated RBC % 0 Sodium 133 Potassium 3.6 Chloride 99 Carbon Dioxide 20.6 L Anion Gap 14 BUN 24 H Creatinine 1.44 H Estim Creat Clear Calc 63.94 Est GFR (MDRD) Non-Af 55 L BUN/Creatinine Ratio 16.6 Glucose 149 H Calcium 9.0 Total Bilirubin 0.99 AST 22 ALT 16 Alkaline Phosphatase 152 H Troponin T High Sens 30 H Troponin T Hi Sens 2 Hr 27 H Troponin T Hi Sens 4Hr 24 H NT pro BNP II 896 Total Protein 7.0 Albumin 3.4 Globulin 3.6 Albumin/Globulin Ratio 0.9 Lipase 15 Radiography Diagnostic Testing: Clinical Impression(s) from Imaging Studies Chest CTA 10/11/24 07:46 IMPRESSION: 1. No evidence of pulmonary emboli. 2. Aneurysmal dilatation of the ascending thoracic aorta. 3. Atelectasis or pneumonia in the middle lobe of the right lung in the lower lobe of both lungs as described. 4. Other findings as noted. Reading Location: [id number] Abdomen/Pelvis CT 10/11/24 08:00 IMPRESSION: Acute cholecystitis with inflammatory process affecting the right upper quadrantand transiting hepatic flexure of the colon. Reading [facility] Discharge Plan Triage Chief Complaint: General Illness ED Provider: Darron Washington Dx/Rx/DC Orders Clinical Impression: Abdominal pain, Prostate cancer, Metastasis to bone, Paroxysmal atrial flutter,Acute cholecystitis Prescriptions: No Action albuterol sulfate [Ventolin HFA] 90 mcg/actuation HFA aerosol inhaler 2 puff INHALATION Q6H PRN (Reason: Asthma) Eligard (3 month) 22.5 mg syringe subcut polyethylene glycol 3350 [Miralax] 17 gram/dose powder PO QDAY PRN flecainide 100 mg tablet 100 mg PO BID Qty: 180 3RF metoprolol succinate 100 mg tablet extended release 24 hr 100 mg PO DAILY Qty: 90 3RF rivaroxaban 20 mg tablet 20 mg PO QHS Qty: 90 3RF lidocaine-prilocaine 2.5-2.5 % cream 1 applic topical ONCE PRN (Reason: port access) 30 Days Qty: 30 2RF oxycodone 10 mg tablet 10 mg PO Q8H PRN (Reason: pain) Excedrin Migraine 250-250-65 mg tablet 1 tab PO Q4-6H PRN (Reason: pain) omeprazole 20 mg tablet,delayed release (DR/EC) 20 mg PO DAILY albuterol sulfate 2.5 MG/3 ML solution for nebulization 2.5 mg INHALATION Q6H PRN PRN (Reason: Asthma) montelukast 10 MG tablet 10 mg PO QHS fluticasone propion-salmeterol [Advair Diskus] 100-50 mcg/dose blister with device 1 inh INHALATION DAILY calcium carbonate [Calcium 600] 600 mg calcium (1,500 mg) tablet 600 mg PO DAILY cholecalciferol (vitamin D3) [Vitamin D3] 50 mcg (2,000 unit) capsule 50 mcg PO DAILY tizanidine 4 mg tablet 4 mg PO TID albuterol sulfate 1.25 mg/3 mL solution for nebulization 1 inhalation 4X/DAY PRN PRN (Reason: shortness of breath or wheezing) Primary Care Provider: Carlitos Brewer Referrals: Carlitos Brewer DO [Primary Care Provider] - Print Language: Brazilian Disposition Disposition: Acute Care [facility] What to do if you have Problems For any increased pain, shortness of breath, bleeding, nausea or vomiting, chestpain, or any unexpected problems, contact your Primary Care Provider. Call [facility] ([phone]) or report to the closest Emergency Room. Call 911 if necessary. 10/11/24 1222 <Electronically signed by Darron Washington DO> Cosigner Signature (if applicable): CC: Dr. Carlitos Brewer DO ~ Signed [facility] Work Phone: Evaluation + Plan note Future Appointments Appointment Date:03/08/2021 08:30:00 AM Scheduled Provider:MANGO CUBA MD Location:[facility] Appointment Type:[facility] Evaluation + Plan note Future Appointments Appointment Date:01/27/2024 08:30:00 AM Scheduled Provider:CARLITOS BREWER DO Location:[facility] Appointment Type:[facility] Evaluation + Plan note Future Appointments Appointment Date:01/27/2024 08:30:00 AM Scheduled Provider:CARLITOS BREWER DO Location:[facility] Appointment Type:[facility] Annual Future Scheduled Tests Laboratory* LDL-Cholesterol, Direct 01/29/24 * Prostate Specific Antigen 01/29/24 * Thyroid Stimulating Hormone 01/29/24 * A1C Hemoglobin 01/29/24 * Complete Blood Count 01/28/23 * Complete Blood Count 01/29/24 * Lipid Profile 01/29/24 * Albumin/Creatinine Ratio, Random Urine 01/29/24 * Complete Metabolic Panel 01/29/24 [facility] Evaluation + Plan note Future Appointments Appointment Date:01/27/2024 08:30:00 AM Scheduled Provider:CARLITOS BREWER DO Location:[facility] Appointment Type: Wellness Annual Future Scheduled Tests Laboratory* Albumin/Creatinine Ratio, Random Urine 12/02/23 [facility] Evaluation + Plan note Future Appointments Appointment Date:07/20/2024 11:00:00 AM Scheduled Provider:CARLITOS BREWER DO Location:[facility] Appointment Type: OV Future Scheduled Tests Laboratory* Albumin/Creatinine Ratio, Random Urine 12/02/23 [facility] Evaluation + Plan note Future Appointments Appointment Date:10/25/2024 01:00:00 PM Scheduled Provider:CARLITOS BREWER DO Location:[facility] Appointment Type:[facility] Follow-Up Appointment Date:02/01/2025 02:30:00 PM Scheduled Provider:CARLITOS BREWER DO Location:[facility] Appointment Type: Wellness Annual Future Scheduled Tests Laboratory* Lipoprotein (a) 08/17/24 * Apolipoprotein B 08/17/24 * TSH with Reflex to FT4 08/17/24 * Prostate Specific Antigen 08/17/24 * A1C Hemoglobin 08/17/24 * Complete Blood Count 08/17/24 * Lipid Profile 08/17/24 * Complete Metabolic Panel 08/17/24 [facility] Evaluation + Plan note Future Appointments Appointment Date:10/25/2024 01:00:00 PM Scheduled Provider:CARLITOS BREWER DO Location:[facility] Appointment Type:[facility] Follow-Up Appointment Date:02/01/2025 02:30:00 PM Scheduled Provider:CARLITOS BREWER DO Location:[facility] Appointment Type: Wellness Annual Diagnostic Tests Pending * Procalcitonin 10/18/24 Future Scheduled Tests Laboratory* Lipoprotein (a) 08/17/24 * Apolipoprotein B 08/17/24 * TSH with Reflex to FT4 08/17/24 * Prostate Specific Antigen 08/17/24 * A1C Hemoglobin 08/17/24 * Complete Blood Count 08/17/24 * Lipid Profile 08/17/24 * Complete Metabolic Panel 08/17/24 [facility] Evaluation note* Diagnosis Prostate cancer- Primary Malignant neoplasm of prostate [facility]- Primary Malignant neoplasm of prostate [facility] Diagnosis Onset Date Resolution Status Prostate cancer metastatic to intraabdominal lymph nod e acute Prostate cancer metastatic to intraabdominal lymph nod e acute Prostate cancer metastatic to intraabdominal lymph nod e acute Prostate cancer metastatic to intraabdominal lymph nod e acute Prostate cancer metastatic to intraabdominal lymph nod e acute Prostate cancer metastatic to intraabdominal lymph nod e acute [facility] Work Phone: Evaluation note* Diagnosis Onset Date Resolution Status Prostate cancer metastatic to intraabdominal lymph nod e acute Prostate cancer metastatic to intraabdominal lymph nod e acute [facility] Work Phone: Evaluation noteNo assessment information available [facility] Work Phone: Evaluation note* Diagnosis Onset Date Resolution Status 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 [facility] Work Phone: Evaluation note* Diagnosis Onset Date Resolution Status 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 Dyspnea on exertion acute Paroxysmal atrial 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, 2018 chronic 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 chronic Regional lymph node metastasis present chronic [facility] Work Phone: Evaluation note* Diagnosis Onset Date Resolution Status 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 Dyspnea on exertion acute Paroxysmal atrial 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, 2018 chronic 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 [facility] Work Phone: Evaluation note* Diagnosis Onset Date Resolution Status 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 Dyspnea on exertion acute Paroxysmal atrial 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, 2018 chronic 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 Encounter for education acut e 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 chronic Regional lymph node metastasis present chronic Encounter for insertion of venous access port acute 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 [facility] Work Phone: Evaluation note* Diagnosis Onset Date Resolution Status 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 Dyspnea on exertion acute Paroxysmal atrial 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, 2018 chronic 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 Encounter for education acut e 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 chronic Regional lymph node metastasis present chronic Encounter for insertion of venous access port acute Metastasis to bone [facility] Work Phone: Evaluation note* Diagnosis Prostate cancer- Primary Malignant neoplasm of prostate Rising PSA following treatment for malignant neoplasm of prostate Metastasis to bone Secondary malignant neoplasm of bone and bone marrow [facility] N[facility] No data available for this section [facility] Discharge instructions No data available for this section [facility] Discharge instructionsWMercer County Community Hospital Work Phone: Instructions* Attachments The following attachments cannot be sent through Care Everywhere. * Lutetium Mary 177 Vipivotide Tetraxetan Injection (Brazilian) documented in this encounterOSU [facility] HospitalProgress note No data available for this section [facility] Reason for referral (narrative)* (Routine) - Open Specialty Diagnoses / Procedures Referred By Contac t Referred To Contact Diagnoses Prostate cancer Procedures [facility] Sukumar Whitfield MD, PhD [address] [place] [address] Referral ID Status Reason Start Date Expiration Date Visits Re quested Visits Authorized [id number] Open 09/19/2021 10/14/2022 [facility]No reason for referral information availableSaltillo Medical Services Work Phone: Reason for visit Narrative* (Routine) - Open Specialty Diagnoses / Procedures Referred By Contac t Referred To Contact Diagnoses Prostate cancer Procedures [facility] Sukumar Whitfield MD, PhD [address] [place] [address] Referral ID Status Reason Start Date Expiration Date Visits Re quested Visits Authorized [id number] Open 09/19/2021 10/14/2022 1 1 [facility] Chief Complaint and Reason for Visit Chief Complaint 9 M FU Reason for Visit Edema Intermittent palpitations Paroxysmal atrial flutter Chief Complaint 9 M FU Malignant neoplasm of prostate Reason for Visit Edema Intermittent palpitations Paroxysmal atrial flutter Chief Complaint Malignant neoplasm o f prostate new pt consult OTV OTV OTV OTV OTV titus Reason for Visit Prostate cancer meta static to intraabdominal lymph node Prostate cancer metastatic to intraabdominal lymph node Prostate cancer metastatic to intraabdominal lymph node Prostate cancer metastatic to intraabdominal lymph node Prostate cancer metastatic to intraabdominal lymph node Prostate cancer metastatic to intraabdominal lymph node Chief Complaint OTV titus 1 MONTH F/U Reason for Visit Prostate cancer meta static to intraabdominal lymph node Prostate cancer metastatic to intraabdominal lymph node Chief Complaint 3 month f/u prostate PSA 4 month f/u Reason for Visit Prostate cancer meta static to intraabdominal lymph node Prostate cancer metastatic to intraabdominal lymph node Chief Complaint 3 month f/u prostate PSA 4 month f/u 1 Y FU titus AFIB Amb Documentation Reason for Visit Paroxysmal atrial fl utter Chief Complaint PSA 4 month f/u 1 Y FU titus AFIB Amb Documentation Reason for Visit Paroxysmal atrial fl utter Chief Complaint Amb Documentation NEW PT - PROSTATE CANCER PROSTATE CANCER PROSTATE CANCER REVIEW CT/BONE SCAN titus Reason for Visit Metastasis to bone Prostate cancer Regional lymph node metastasis present Metastasis to bone Prostate cancer Regional lymph node metastasis present Chief Complaint Amb Documentation NEW PT - PROSTATE CANCER PROSTATE CANCER PROSTATE CANCER REVIEW CT/BONE SCAN 1 MONTH, LABS 1 Y FU 1 MO LABS(DONE) -LUPRON/ZOMETA (IF PA IS APPROVED) titus Reason for Visit Metastasis to bone Prostate cancer Regional lymph node metastasis present Metastasis to bone Prostate cancer Regional lymph node metastasis present Metastasis to bone Prostate cancer Regional lymph node metastasis present Dyspnea on exertion Paroxysmal atrial flutter Metastasis to bone Prostate cancer Regional lymph node metastasis present Chief Complaint Amb Documentation NEW PT - PROSTATE CANCER PROSTATE CANCER PROSTATE CANCER REVIEW CT/BONE SCAN 1 MONTH, LABS 1 Y FU 1 MO LABS(DONE) -LUPRON/ZOMETA (IF PA IS APPROVED) titus PROSTATE CANCER Reason for Visit Metastasis to bone Prostate cancer Regional lymph node metastasis present Metastasis to bone Prostate cancer Regional lymph node metastasis present Metastasis to bone Prostate cancer Regional lymph node metastasis present Dyspnea on exertion Paroxysmal atrial flutter Metastasis to bone Prostate cancer Regional lymph node metastasis present Chief Complaint Amb Documentation NEW PT - PROSTATE CANCER PROSTATE CANCER PROSTATE CANCER REVIEW CT/BONE SCAN 1 MONTH, LABS 1 Y FU 1 MO LABS(DONE) -LUPRON/ZOMETA (IF PA IS APPROVED) PROSTATE CANCER ZOMETA REVIEW SCAN - LABS Reason for Visit Metastasis to bone Prostate cancer Regional lymph node metastasis present Metastasis to bone Prostate cancer Regional lymph node metastasis present Metastasis to bone Prostate cancer Regional lymph node metastasis present Dyspnea on exertion Paroxysmal atrial flutter Metastasis to bone Prostate cancer Regional lymph node metastasis present Metastasis to bone Prostate cancer Regional lymph node metastasis present Chief Complaint Amb Documentation NEW PT - PROSTATE CANCER PROSTATE CANCER PROSTATE CANCER REVIEW CT/BONE SCAN 1 MONTH, LABS 1 Y FU 1 MO LABS(DONE) -LUPRON/ZOMETA (IF PA IS APPROVED) PROSTATE CANCER ZOMETA REVIEW SCAN - LABS BONE CA CHEMO ED PORT PLACEMENT Reason for Visit Metastasis to bone Prostate cancer Regional lymph node metastasis present Metastasis to bone Prostate cancer Regional lymph node metastasis present Metastasis to bone Prostate cancer Regional lymph node metastasis present Dyspnea on exertion Paroxysmal atrial flutter Metastasis to bone Prostate cancer Regional lymph node metastasis present Metastasis to bone Prostate cancer Regional lymph node metastasis present Encounter for education Metastasis to bone Prostate cancer Regional lymph node metastasis present Encounter for insertion of venous access port Metastasis to bone Chief Complaint PROSTATE CANCER PROSTATE CANCER REVIEW CT/BONE SCAN 1 MONTH, LABS 1 Y FU 1 MO LABS(DONE) -LUPRON/ZOMETA (IF PA IS APPROVED) PROSTATE CANCER ZOMETA REVIEW SCAN - LABS BONE CA CHEMO ED PORT PLACEMENT Reason for Visit Metastasis to bone Prostate cancer Regional lymph node metastasis present Metastasis to bone Prostate cancer Regional lymph node metastasis present Dyspnea on exertion Paroxysmal atrial flutter Metastasis to bone Prostate cancer Regional lymph node metastasis present Metastasis to bone Prostate cancer Regional lymph node metastasis present Encounter for education Metastasis to bone Prostate cancer Regional lymph node metastasis present Encounter for insertion of venous access port Metastasis to bone Chief Complaint 1 MONTH, LABS 1 Y FU 1 MO LABS(DONE) -LUPRON/ZOMETA (IF PA IS APPROVED) PROSTATE CANCER REVIEW SCAN - LABS BONE CA CHEMO ED PORT PLACEMENT CONSULT - BONE METS ZOMETA DYSPNEA DYSPNEA Reason for Visit Metastasis to bone Prostate cancer Regional lymph node metastasis present Dyspnea on exertion Paroxysmal atrial flutter Metastasis to bone Prostate cancer Regional lymph node metastasis present Metastasis to bone Prostate cancer Regional lymph node metastasis present Encounter for education Metastasis to bone Prostate cancer Regional lymph node metastasis present Encounter for insertion of venous access port Metastasis to bone Metastasis to bone Chief Complaint 1 MONTH, LABS 1 Y FU 1 MO LABS(DONE) -LUPRON/ZOMETA (IF PA IS APPROVED) PROSTATE CANCER REVIEW SCAN - LABS BONE CA CHEMO ED PORT PLACEMENT CONSULT - BONE METS DYSPNEA DYSPNEA 8 W FU 6 WKS - LABS OTV ZOMETA Amb Documentation Insertion, Left possible right Vasc Insertion, Left possible right Vasc Reason for Visit Metastasis to bone Prostate cancer Regional lymph node metastasis present Dyspnea on exertion Paroxysmal atrial flutter Metastasis to bone Prostate cancer Regional lymph node metastasis present Metastasis to bone Prostate cancer Regional lymph node metastasis present Encounter for education Metastasis to bone Prostate cancer Regional lymph node metastasis present Encounter for insertion of venous access port Metastasis to bone Metastasis to bone Dyspnea on exertion Paroxysmal atrial flutter Metastasis to bone Prostate cancer Regional lymph node metastasis present Metastasis to bone Chief Complaint Admit Date 6 WEEK LABS TX May 24, 2024 9 :27am METS PROSTATE CANCER, NEW LOW BACK PAIN May 25, 2024 3:36pm Amb Documentation May 27, 2024 1 :24pm PROSTATE CA May 28, 2024 9 :02am BONE METS May 31, 2024 1 2:23pm REVIEW SCANS May 31, 2024 1 2:24pm 4 WKS AFTER STARTING APA - LABS June 2:16pm 1 Y FU August 03, 2024 8:57 am DISCUSS PALLIATIVE XRT August 12, 2024 1:07pm CHEMO ED August 19, 2024 2:5 7pm PROSTATE CANCER August 25, 2024 10: 15am Amb Documentation September 01, 2024 9:08am OTV September 01, 2024 11:31a m F/U AFTER RADIATION - LABS September 08 12:38pm . September 08, 2024 12:45 pm Reason for Visit Admit Date Back pain May 24, 2024 9 :27am Metastasis to bone May 24, 2024 9 :27am Prostate cancer May 24, 2024 9 :27am Regional lymph node metastasis present J anuary 2024 9:27am Metastasis to bone May 31, 2024 1 2:23pm Metastasis to bone May 31, 2024 1 2:24pm Prostate cancer May 31, 2024 1 2:24pm Regional lymph node metastasis present F ebruary 2024 12:24pm Metastasis to bone July 01, 2024 2:16 pm Prostate cancer July 01, 2024 2:16 pm Regional lymph node metastasis present M arch 2024 2:16pm Dyspnea on exertion August 03, 2024 8:57 am Paroxysmal atrial flutter August 03 8:57am Metastasis to bone August 12, 2024 1:0 7pm Prostate cancer August 12, 2024 1:0 7pm Regional lymph node metastasis present A pril 2024 1:07pm Metastasis to bone August 19, 2024 2:5 7pm Prostate cancer August 19, 2024 2:5 7pm Regional lymph node metastasis present A pril 2024 2:57pm Metastasis to bone September 01, 2024 11:31a m Metastasis to bone September 08, 2024 12:38 pm Prostate cancer September 08, 2024 12:38 pm Regional lymph node metastasis present M 2024 12:38pm Chief Complaint Admit Date 4 WKS AFTER STARTING APA - LABS June 2:16pm 1 Y FU August 03, 2024 8:57 am DISCUSS PALLIATIVE XRT August 12, 2024 1:07pm CHEMO ED August 19, 2024 2:5 7pm PROSTATE CANCER August 25, 2024 10: 15am Amb Documentation September 01, 2024 9:08am OTV September 01, 2024 11:31a m F/U AFTER RADIATION - LABS September 08 12:38pm . September 08, 2024 12:45 pm CHOLECYSTITIS October 11, 2024 12:1 5pm Reason for Visit Admit Date Metastasis to bone July 01, 2024 2:16 pm Prostate cancer July 01, 2024 2:16 pm Regional lymph node metastasis present M arch 2024 2:16pm Dyspnea on exertion August 03, 2024 8:57 am Paroxysmal atrial flutter August 03 8:57am Metastasis to bone August 12, 2024 1:0 7pm Prostate cancer August 12, 2024 1:0 7pm Regional lymph node metastasis present A pril 2024 1:07pm Metastasis to bone August 19, 2024 2:5 7pm Prostate cancer August 19, 2024 2:5 7pm Regional lymph node metastasis present A pril 2024 2:57pm Metastasis to bone September 01, 2024 11:31a m Metastasis to bone September 08, 2024 12:38 pm Prostate cancer September 08, 2024 12:38 pm Regional lymph node metastasis present M ay 2024 12:38pm Acute cholecystitis due to biliary calcu edie October 11, 2024 12:15pm Anticoagulant long-term use October 11 12:15pm Chief Complaint Admit Date 4 WKS AFTER STARTING APA - LABS June 2:16pm 1 Y FU August 03, 2024 8:57 am DISCUSS PALLIATIVE XRT August 12, 2024 1:07pm CHEMO ED August 19, 2024 2:5 7pm PROSTATE CANCER August 25, 2024 10: 15am Amb Documentation September 01, 2024 9:08am OTV September 01, 2024 11:31a m F/U AFTER RADIATION - LABS September 08 12:38pm . September 08, 2024 12:45 pm CHOLECYSTITIS October 11, 2024 12:1 5pm CHOLECYSTITIS October 11, 2024 6:32 pm CHOLECYSTITIS October 12, 2024 9:35 am CHOLECYSTITIS October 12, 2024 1:17 pm CHOLECYSTITIS October 13, 2024 8:16 am Reason for Visit Admit Date Metastasis to bone July 01, 2024 2:16 pm Prostate cancer July 01, 2024 2:16 pm Regional lymph node metastasis present M arch 2024 2:16pm Dyspnea on exertion August 03, 2024 8:57 am Paroxysmal atrial flutter August 03 8:57am Metastasis to bone August 12, 2024 1:0 7pm Prostate cancer August 12, 2024 1:0 7pm Regional lymph node metastasis present A pril 2024 1:07pm Metastasis to bone August 19, 2024 2:5 7pm Prostate cancer August 19, 2024 2:5 7pm Regional lymph node metastasis present A pril 2024 2:57pm Metastasis to bone September 01, 2024 11:31a m Metastasis to bone September 08, 2024 12:38 pm Prostate cancer September 08, 2024 12:38 pm Regional lymph node metastasis present M ay 2024 12:38pm Acute cholecystitis October 11, 2024 12:1 5pm Acute cholecystitis due to biliary calcu edie October 11, 2024 12:15pm Anticoagulant long-term use October 11, 12:15pm Chief Complaint Admit Date 4 WKS AFTER STARTING APA - LABS June 2:16pm 1 Y FU August 03, 2024 8:57 am DISCUSS PALLIATIVE XRT August 12, 2024 1:07pm CHEMO ED August 19, 2024 2:5 7pm PROSTATE CANCER August 25, 2024 10: 15am Amb Documentation September 01, 2024 9:08am OTV September 01, 2024 11:31a m F/U AFTER RADIATION - LABS September 08 12:38pm CHOLECYSTITIS October 11, 2024 12:1 5pm CHOLECYSTITIS October 11, 2024 6:32 pm CHOLECYSTITIS October 12, 2024 9:35 am CHOLECYSTITIS October 12, 2024 1:17 pm CHOLECYSTITIS October 13, 2024 8:16 am CHOLECYSTITIS October 13, 2024 3:38 pm F/U - LABS - S/P WCH October 19, 2024 3:1 2pm . October 19, 2024 3:15 pm Reason for Visit Admit Date Metastasis to bone July 01, 2024 2:16 pm Prostate cancer July 01, 2024 2:16 pm Regional lymph node metastasis present M arch 2024 2:16pm Dyspnea on exertion August 03, 2024 8:57 am Paroxysmal atrial flutter August 03 8:57am Metastasis to bone August 12, 2024 1:0 7pm Prostate cancer August 12, 2024 1:0 7pm Regional lymph node metastasis present A pril 2024 1:07pm Metastasis to bone August 19, 2024 2:5 7pm Prostate cancer August 19, 2024 2:5 7pm Regional lymph node metastasis present A pril 2024 2:57pm Metastasis to bone September 01, 2024 11:31a m Metastasis to bone September 08, 2024 12:38 pm Prostate cancer September 08, 2024 12:38 pm Regional lymph node metastasis present M ay 2024 12:38pm Acute cholecystitis October 11, 2024 12:1 5pm Acute cholecystitis due to biliary calcu edie October 11, 2024 12:15pm Anticoagulant long-term use October 11, 12:15pm Metastasis to bone October 19, 2024 3:12 pm Prostate cancer October 19, 2024 3:12 pm Regional lymph node metastasis present J [facility] 2024 3:12pm Chief Complaint Admit Date 4 WKS AFTER STARTING APA - LABS June 2:16pm 1 Y FU August 03, 2024 8:57 am DISCUSS PALLIATIVE XRT August 12, 2024 1:07pm CHEMO ED August 19, 2024 2:5 7pm PROSTATE CANCER August 25, 2024 10: 15am Amb Documentation September 01, 2024 9:08am OTV September 01, 2024 11:31a m F/U AFTER RADIATION - LABS September 08 12:38pm CHOLECYSTITIS October 11, 2024 12:1 5pm CHOLECYSTITIS October 11, 2024 6:32 pm CHOLECYSTITIS October 12, 2024 9:35 am CHOLECYSTITIS October 12, 2024 1:17 pm CHOLECYSTITIS October 13, 2024 8:16 am CHOLECYSTITIS October 13, 2024 3:38 pm F/U - LABS - S/P WCH October 19, 2024 3:1 2pm . October 19, 2024 3:15 pm CHECK SUKHDEV DRAIN October 20, 2024 1:24 pm Chief Complaint Admit Date 4 WKS AFTER STARTING APA - LABS June 2:16pm 1 Y FU August 03, 2024 8:57 am DISCUSS PALLIATIVE XRT August 12, 2024 1:07pm CHEMO ED August 19, 2024 2:5 7pm PROSTATE CANCER August 25, 2024 10: 15am Amb Documentation September 01, 2024 9:08am OTV September 01, 2024 11:31a m F/U AFTER RADIATION - LABS September 08 12:38pm CHOLECYSTITIS October 11, 2024 12:1 5pm CHOLECYSTITIS October 11, 2024 6:32 pm CHOLECYSTITIS October 12, 2024 9:35 am CHOLECYSTITIS October 12, 2024 1:17 pm CHOLECYSTITIS October 13, 2024 8:16 am CHOLECYSTITIS October 13, 2024 3:38 pm F/U - LABS - S/P WCH October 19, 2024 3:1 2pm . October 19, 2024 3:15 pm CHECK SUKHDEV DRAIN October 20, 2024 1:24 pm Robotic Cholecystectomy w/grams October 11:23am Robotic Cholecystectomy w/grams October 12:33pm Reason for Visit Admit Date Metastasis to bone July 01, 2024 2:16 pm Prostate cancer July 01, 2024 2:16 pm Regional lymph node metastasis present M arch 2024 2:16pm Dyspnea on exertion August 03, 2024 8:57 am Paroxysmal atrial flutter August 03 8:57am Metastasis to bone August 12, 2024 1:0 7pm Prostate cancer August 12, 2024 1:0 7pm Regional lymph node metastasis present A pril 2024 1:07pm Metastasis to bone August 19, 2024 2:5 7pm Prostate cancer August 19, 2024 2:5 7pm Regional lymph node metastasis present A pril 2024 2:57pm Metastasis to bone September 01, 2024 11:31a m Metastasis to bone September 08, 2024 12:38 pm Prostate cancer September 08, 2024 12:38 pm Regional lymph node metastasis present M ay 2024 12:38pm Acute cholecystitis due to biliary calcu edie October 11, 2024 12:15pm Anticoagulant long-term use October 11, 2 025 12:15pm Acute cholecystitis October 11, 2024 12:1 5pm Metastasis to bone October 19, 2024 3:12 pm Prostate cancer October 19, 2024 3:12 pm Regional lymph node metastasis present J une 2024 3:12pm Acute cholecystitis due to biliary calcu edie October 20, 2024 1:24pm Acute cholecystitis October 20, 2024 1:24 pm H/O insertion of cholecystostomy tube Ju 2024 1:24pm Chief Complaint Admit Date 1 Y FU August 03, 2024 8:57 am DISCUSS PALLIATIVE XRT August 12, 2024 1:07pm CHEMO ED August 19, 2024 2:5 7pm PROSTATE CANCER August 25, 2024 10: 15am Amb Documentation September 01, 2024 9:08am OTV September 01, 2024 11:31a m F/U AFTER RADIATION - LABS September 08 12:38pm CHOLECYSTITIS October 11, 2024 12:1 5pm CHOLECYSTITIS October 11, 2024 6:32 pm CHOLECYSTITIS October 12, 2024 9:35 am CHOLECYSTITIS October 12, 2024 1:17 pm CHOLECYSTITIS October 13, 2024 8:16 am CHOLECYSTITIS October 13, 2024 3:38 pm F/U - LABS - S/P WCH October 19, 2024 3:1 2pm CHECK SUKHDEV DRAIN October 20, 2024 1:24 pm Robotic Cholecystectomy w/grams October 11:23am PREOP October 26, 2024 11:45 am Robotic Cholecystectomy w/grams October 12:33pm 2 [id number] November 04 9:21am eligard November 04, 2024 9:30 am Reason for Visit Admit Date Dyspnea on exertion August 03, 2024 8:57 am Paroxysmal atrial flutter August 03 8:57am Metastasis to bone August 12, 2024 1:0 7pm Prostate cancer August 12, 2024 1:0 7pm Regional lymph node metastasis present A pril 2024 1:07pm Metastasis to bone August 19, 2024 2:5 7pm Prostate cancer August 19, 2024 2:5 7pm Regional lymph node metastasis present A pril 2024 2:57pm Metastasis to bone September 01, 2024 11:31a m Metastasis to bone September 08, 2024 12:38 pm Prostate cancer September 08, 2024 12:38 pm Regional lymph node metastasis present M ay 2024 12:38pm Acute cholecystitis due to biliary calcu edie October 11, 2024 12:15pm Anticoagulant long-term use October 11, 025 12:15pm Acute cholecystitis October 11, 2024 12:1 5pm Metastasis to bone October 19, 2024 3:12 pm Prostate cancer October 19, 2024 3:12 pm Regional lymph node metastasis present J une 2024 3:12pm Acute cholecystitis due to biliary calcu edie October 20, 2024 1:24pm Acute cholecystitis October 20, 2024 1:24 pm H/O insertion of cholecystostomy tube Ju ne 2024 1:24pm Metastasis to bone November 04, 2024 9:21 am Prostate cancer November 04, 2024 9:21 am Regional lymph node metastasis present J ainsley 2024 9:21am Chief Complaint Admit Date 1 Y FU August 03, 2024 8:57 am DISCUSS PALLIATIVE XRT August 12, 2024 1:07pm CHEMO ED August 19, 2024 2:5 7pm PROSTATE CANCER August 25, 2024 10: 15am Amb Documentation September 01, 2024 9:08am OTV September 01, 2024 11:31a m F/U AFTER RADIATION - LABS September 08 12:38pm CHOLECYSTITIS October 11, 2024 12:1 5pm CHOLECYSTITIS October 11, 2024 6:32 pm CHOLECYSTITIS October 12, 2024 9:35 am CHOLECYSTITIS October 12, 2024 1:17 pm CHOLECYSTITIS October 13, 2024 8:16 am CHOLECYSTITIS October 13, 2024 3:38 pm F/U - LABS - S/P WCH October 19, 2024 3:1 2pm CHECK SUKHDEV DRAIN October 20, 2024 1:24 pm Robotic Cholecystectomy w/grams October 11:23am PREOP October 26, 2024 11:45 am Robotic Cholecystectomy w/grams October 12:33pm 2 [id number] November 04 9:21am eligard November 04, 2024 9:30 am GALLBLADDER 7-1 November 10, 2024 9:31 am Chief Complaint Admit Date 1 Y FU August 03, 2024 8:57 am DISCUSS PALLIATIVE XRT August 12, 2024 1:07pm CHEMO ED August 19, 2024 2:5 7pm PROSTATE CANCER August 25, 2024 10: 15am Amb Documentation September 01, 2024 9:08am OTV September 01, 2024 11:31a m F/U AFTER RADIATION - LABS September 08 12:38pm CHOLECYSTITIS October 11, 2024 12:1 5pm CHOLECYSTITIS October 11, 2024 6:32 pm CHOLECYSTITIS October 12, 2024 9:35 am CHOLECYSTITIS October 12, 2024 1:17 pm CHOLECYSTITIS October 13, 2024 8:16 am CHOLECYSTITIS October 13, 2024 3:38 pm F/U - LABS - S/P WCH October 19, 2024 3:1 2pm CHECK SUKHDEV DRAIN October 20, 2024 1:24 pm Robotic Cholecystectomy w/grams October 11:23am PREOP October 26, 2024 11:45 am Robotic Cholecystectomy w/grams October 12:33pm 2 [id number] November 04 9:21am eligard November 04, 2024 9:30 am GALLBLADDER 7-1 November 10, 2024 9:31 am DISCUSS [place] 2024 2:3 4pm Reason for Visit Admit Date Dyspnea on exertion August 03, 2024 8:57 am Paroxysmal atrial flutter August 03 8:57am Metastasis to bone August 12, 2024 1:0 7pm Prostate cancer August 12, 2024 1:0 7pm Regional lymph node metastasis present A pril 2024 1:07pm Metastasis to bone August 19, 2024 2:5 7pm Prostate cancer August 19, 2024 2:5 7pm Regional lymph node metastasis present A pril 2024 2:57pm Metastasis to bone September 01, 2024 11:31a m Metastasis to bone September 08, 2024 12:38 pm Prostate cancer September 08, 2024 12:38 pm Regional lymph node metastasis present M ay 2024 12:38pm Acute cholecystitis due to biliary calcu edie October 11, 2024 12:15pm Anticoagulant long-term use October 11, 2 025 12:15pm Acute cholecystitis October 11, 2024 12:1 5pm Metastasis to bone October 19, 2024 3:12 pm Prostate cancer October 19, 2024 3:12 pm Regional lymph node metastasis present J une 2024 3:12pm Acute cholecystitis due to biliary calcu edie October 20, 2024 1:24pm Acute cholecystitis October 20, 2024 1:24 pm H/O insertion of cholecystostomy tube Ju ne 2024 1:24pm Metastasis to bone November 04, 2024 9:21 am Prostate cancer November 04, 2024 9:21 am Regional lymph node metastasis present J ainsley 2024 9:21am S/P laparoscopic cholecystectomy November 102024 9:31am Chief Complaint Admit Date Robotic Cholecystectomy w/grams October 11:23am PREOP October 26, 2024 11:45 am Robotic Cholecystectomy w/grams October 12:33pm 2 [id number] November 04 9:21am eligard November 04, 2024 9:30 am GALLBLADDER 7-1 November 10, 2024 9:31 am DISCUSS [place] 2024 2:3 4pm 6 M FU February 03, 2025 2: 26pm Reason for Visit Admit Date Metastasis to bone November 04, 2024 9:21 am Prostate cancer November 04, 2024 9:21 am Regional lymph node metastasis present J ainsley 2024 9:21am S/P laparoscopic cholecystectomy November 102024 9:31am Metastasis to bone 2024 2:3 4pm Prostate cancer 2024 2:3 4pm Regional lymph node metastasis present A ugust 2024 2:34pm Dyspnea on exertion February 03, 2025 2: 26pm Paroxysmal atrial flutter February 03, 2 025 2:26pm Family History Relationship Condition Age at Onset Recorded Date/T omar mother Coronary artery disease Unknown Kidney disorder Unknown father Malignant neoplasm Unknown Cardiac disease Unknown uncle Myocardial infarction Unknown Relationship Condition Age at Onset Recorded Date/T omar mother Coronary artery disease Unknown Kidney disorder Unknown father Cardiac disease Unknown Malignant neoplasm of lung Unknown uncle Myocardial infarction Unknown Advance Directives Advance Directive Response Recorded Date/ Time Living Will Yes November 08, 2020 11:18am Power of Nuclear Physician November 08 11:18am Advance Directive Response Recorded Date/ Time Living Will Yes November 08, 2020 10:18am Power of Nuclear Physician November 08 10:18am Advance Directive Response Recorded Date/ Time Living Will Yes March 31 4:19pm Power of Nuclear Physician March 31, 2023 4:19pm Advance Directive Response Recorded Date/ Time Living Will Yes June 16 024 2:59pm Power of Nuclear Physician June 16, 2023 2:59pm Advance Directive Response Recorded Date/ Time Living Will Yes June 16 024 3:59pm Power of Nuclear Physician June 16, 2023 3:59pm Advance Directive Response Recorded Date/ Time Name of Medical Power of Nuclear Physician August 15, 2023 2:51pm Living Will Yes August 15, 2023 2:51pm Power of Nuclear Physician Yes August 14 2:51pm Advance Directive Response Recorded Date/ Time Living Will Yes March 31 5:19pm Do you have a Healthcare Power of Nuclear Physician? March 31, 2023 5:19pm Advance Directives on File No Elvin ry 2024 12:09pm Living Will Yes May 24 12:09pm Do you have a Healthcare Power of Nuclear Physician? Yes May 24, 2024 12:09pm Advance Directives Yes May 24, 2024 12:09pm Advance Directive Response Recorded Date/ Time Living Will Yes March 31 5:19pm Do you have a Healthcare Power of Nuclear Physician? March 31, 2023 5:19pm Advance Directives on File No Elvin ry 2024 12:09pm Living Will Yes May 24 12:09pm Do you have a Healthcare Power of Nuclear Physician? Yes May 24, 2024 12:09pm Advance Directives Yes May 24, 2024 12:09pm Do you have a Healthcare Power of Nuclear Physician? Yes October 11, 2024 7:31am Name of Medical Power of Nuclear Physician Sandhya Edmondson October 11, 2024 7:31am Advance Directive Response Recorded Date/ Time Living Will Yes March 31 5:19pm Do you have a Healthcare Power of Nuclear Physician? March 31, 2023 5:19pm Advance Directives on File No Elvin buamann 2024 12:09pm Living Will Yes May 24 12:09pm Do you have a Healthcare Power of Nuclear Physician? Yes May 24, 2024 12:09pm Advance Directives Yes May 24, 2024 12:09pm Do you have a Healthcare Power of Nuclear Physician? Yes October 11, 2024 12:53pm Name of Medical Power of Nuclear Physician Sandhya Edmondson October 11, 2024 7:31am Advance Directive Response Recorded Date/ Time Living Will Yes March 31 5:19pm Do you have a Healthcare Power of Nuclear Physician? March 31, 2023 5:19pm Advance Directives on File No Elvin baumann 2024 12:09pm Living Will Yes May 24 12:09pm Do you have a Healthcare Power of Nuclear Physician? Yes May 24, 2024 12:09pm Advance Directives Yes May 24, 2024 12:09pm Do you have a Healthcare Power of Nuclear Physician? Yes October 11, 2024 12:53pm Name of Medical Power of Nuclear Physician Sandhya Edmondson October 11, 2024 7:31am Do you have a Healthcare Power of Nuclear Physician? Yes October 15, 2024 9:17am Advance Directive Response Recorded Date/ Time Living Will Yes March 31 5:19pm Do you have a Healthcare Power of Nuclear Physician? March 31, 2023 5:19pm Advance Directives on File No November 04, 2024 10:44am Living Will Yes November 04, 2024 10:44am Do you have a Healthcare Power of Nuclear Physician? Yes November 04, 2024 10:44am Advance Directives Yes November 04 10:44am Do you have a Healthcare Power of Nuclear Physician? Yes October 11, 2024 12:53pm Name of Medical Power of Nuclear Physician Sandhya Edmondson October 11, 2024 7:31am Do you have a Healthcare Power of Nuclear Physician? Yes October 15, 2024 9:17am Advance Directive Response Recorded Date/ Time Advance Directives on File No November 04, 2024 10:44am Living Will Yes November 04, 2024 10:44am Do you have a Healthcare Power of Nuclear Physician? Yes November 04, 2024 10:44am Advance Directives Yes November 04 10:44am Do you have a Healthcare Power of Nuclear Physician? Yes October 15, 2024 9:17am Summary Purpose Additional Source Comments Goals (unrecognized section and content) Goals may be documented in a n alternate section Reason for Visit (unrecogniz ed section and content) Reason Comments Continuity Of Care Reason Comments Consult Reason Comments New Patient Specialty Diagnoses / Procedures Referred By Contac t Referred To Contact Oncology Diagnoses Malignant neoplasm of prostate Secondary malignant neoplasm of bone Jignesh Purcell MB [facility] [address] [facility] [place] [address] Phone: tel: fax: [facility] [address] [place] [id number] Referral ID Status Reason Start Date Expiration Date Visits Requested Visits Authorized [id number] Pending Review Evaluate & Treat 10/07/2024 11/01/2025 1 1 Care Teams (unrecognized sec tion and content) Economics Professor Relationship Specialty Start Date End Date Mango Cuba MD [address] [place] [address] PCP - General Family Medicine 09/19/21 Tristan Borrero DO [address] [facility] [address] [place] [address] Radiation Oncologist Radiation Oncology 09/19/21 Sukumar Whitfield MD, PhD [address] [place] [address] [address] [place] [address] Radiation Oncologist Radiation Oncology 09/19/21 Sanna Buenrostro, RUBA Registered Nurse 09/19/21 Economics Professor Relationship Specialty Start Date End Date Mango Cuba MD [address] [place] [address] PCP - General Family Medicine 09/19/21 Tristan Borrero DO [address] [facility] [address] [place] [address] Radiation Oncologist Radiation Oncology 09/19/21 Sukumar Whitfield MD, PhD [address] [place] [phone] Radiation Oncologist Radiation Oncology 09/19/21 Sanna Buenrostro, RN Registered Nurse 09/19/21 Economics Professor Relationship Specialty Start Date End Date Mango Cuba MD [address] [place] [address] PCP - General Family Medicine 09/19/21 Tristan Borrero, DO [address] [facility] [address] [place] [address] Radiation Oncologist Radiation Oncology 09/19/21 Sukumar Whitfield MD, PhD [address] [place] [phone] Radiation Oncologist Radiation Oncology 09/19/21 Sanna Buenrostro, RN Registered Nurse 09/19/21 Economics Professor Relationship Specialty Start Date End Date Mango Cuba MD [address] [place] [address] PCP - General Family Medicine 09/19/21 Tristan Borrero, DO [address] [facility] [address] [place] [address] Radiation Oncologist Radiation Oncology 09/19/21 Sukumar Whitfield MD, PhD [address] [place] [phone] Radiation Oncologist Radiation Oncology 09/19/21 Sanna Buenrostro, RN Registered Nurse 5/25/22 Team Status: Active Member Role Status Dates Dr. Mango Cuba MD Family Provider Active No Primary Care Physician Primary Care Provider Active Team Status: Inactive Member Role Status Dates No Primary Care Physician Primary Care Provider, Refer ring Provider Active Dr. Tristan Borrero DO Attending Provider Active Team Status: Inactive Member Role Status Dates No Primary Care Physician Primary Care Provider Active Dr. Tristan Borrero DO Attending Provider Active Team Status: Inactive Member Role Status Dates No Primary Care Physician Primary Care Provider Active Dr. Seth Santamaria MD Attending Provider Active Team Status: Inactive Member Role Status Dates No Primary Care Physician Primary Care Provider Active Dr. Steh Santamaria MD Attending Provider, Referr ing Provider Active Team Status: Inactive Member Role Status Dates No Primary Care Physician Primary Care Provider, Refer ring Provider Active Dr. Juan M Diaz MD Attending Provider Active Team Status: Active Member Role Status Dates No Primary Care Physician Primary Care Provider Active Dr. Juan M Diaz MD Attending Provider Active Team Status: Active Member Role Status Dates No Primary Care Physician Primary Care Provider Active Catalino Williamson HEATING AND BLENDING SUPERVISOR, HEATING AND BLENDING SUPERVISOR-C Attending Provider Active Team Status: Active Member Role Status Dates Dr. Mango Cuba MD Primary Care Provider Active Dr. Tristan Borrero DO Attending Provider, Referring P carissa Active Team Status: Inactive Member Role Status Dates No Primary Care Physician Primary Care Provider Active Dr. Juan M Diaz MD Attending Provider Active Team Status: Active Member Role Status Dates Dr. Mango Cuba MD Family Provider Active Dr. Carlitos Brewer DO Primary Care Provider Active Team Status: Inactive Member Role Status Dates No Primary Care Physician Primary Care Provider Active Dr. Jignesh Purcell MD Attending Provider Active Dr. Seth Santamaria MD Referring Provider Active Team Status: Active Member Role Status Dates No Primary Care Physician Primary Care Provider Active Irma Jansen Attending Provider Active Team Status: Inactive Member Role Status Dates Dr. Jignesh Purcell MD Attending Provider Active Dr. Carlitos Brewer DO Primary Care Provider, Referrin g Provider Active Team Status: Active Member Role Status Dates Dr. Jignesh Purcell MD Attending Provider, Referrin g Provider Active Dr. Carlitos Brewer DO Primary Care Provider Active Team Status: Inactive Member Role Status Dates Dr. Jignesh Purcell MD Attending Provider, Referrin g Provider Active Dr. Carlitos Brewer , DO Primary Care Provider Active Team Status: Inactive Member Role Status Dates No Primary Care Physician Referring Provider Active Catalino Williamson HEATING AND BLENDING SUPERVISOR, HEATING AND BLENDING SUPERVISOR-C Attending Provider Active Dr. Carlitos Brewer , DO Primary Care Provider Active Team Status: Inactive Member Role Status Dates Dr. Carlitos Brewer DO Primary Care Provider, Referrin g Provider Active Dr. Jignesh Purcell MD Attending Provider Active Team Status: Active Member Role Status Dates Dr. Tristan Borrero DO Attending Provider, Referring P rovider Active Dr. Carlitos Brewer DO Primary Care Provider Active Team Status: Inactive Member Role Status Dates Dr. Carlitos Brewer DO Primary Care Provider Active Catalino Williamson HEATING AND BLENDING SUPERVISOR, HEATING AND BLENDING SUPERVISOR-C Attending Provider, Referring Pro vider Active Team Status: Inactive Member Role Status Dates Dr. Carlitos Brewer DO Primary Care Provider Active Dr. Jignesh Purcell MD Attending Provider, Referrin g Provider Active Team Status: Active Member Role Status Dates Dr. Carlitos Brewer DO Primary Care Provider Active Dr. Andrews Morales MD Attending Provider, Referrin g Provider Active Team Status: Inactive Member Role Status Dates Dr. Carlitos Brewer DO Primary Care Provider Active Dr. Andrews Morales MD Attending Provider, Referrin g Provider Active Team Status: Inactive Member Role Status Dates Dr. Carlitos Brewer DO Primary Care Provider, Referrin g Provider Active Florencia Sampson HEATING AND BLENDING SUPERVISOR, HEATING AND BLENDING SUPERVISOR-C Attending Provider Active Team Status: Inactive Member Role Status Dates Dr. Carlitos Brewer DO Primary Care Provider, Referrin g Provider Active Dr. Matthew Medellin MD Attending Provider Active Team Status: Active Member Role Status Dates Dr. Carlitos Brewer DO Primary Care Provider Active Dr. Matthew Medellin MD Attending Provider, Referring P rovider Active Team Status: Inactive Member Role Status Dates Dr. Carlitos Brewer DO Primary Care Provider Active Dr. Matthew Medellin MD Attending Provider, Referring P rovider Active Team Status: Inactive Member Role Status Dates Dr. Carlitos Brewer DO Primary Care Provider Active Dr. Tristan Borrero , DO Attending Provider Active Team Status: Active Member Role Status Dates Dr. Carlitos Brewer DO Primary Care Provider Active Dr. Tristan Borrero DO Attending Provider, Referring P rovider Active Team Status: Active Member Role Status Dates Dr. Carlitos Brewer DO Primary Care Provider Active Catalino Williamson HEATING AND BLENDING SUPERVISOR, HEATING AND BLENDING SUPERVISOR-C Referring Provider, Other Provide r Active Dr. Juan M Diaz MD Attending Provider Active Team Status: Active Member Role Status Dates Dr. Carlitos Brewer DO Primary Care Provider Active Dr. Tristan Borrero DO Attending Provider Active Team Status: Inactive Member Role Status Dates Dr. Carlitos Brewer DO Primary Care Provider, Referrin g Provider Active Catalino Williamson HEATING AND BLENDING SUPERVISOR, HEATING AND BLENDING SUPERVISOR-C Attending Provider Active Team Status: Active Member Role Status Dates Dr. Carlitos Brewer DO Primary Care Provider Active Dr. Tristan Borrero DO Attending Provider, Referring P rovider Active Dr. Efrain Prado MD Active Team Status: Inactive Member Role Status Dates Dr. Carlitos Brewer DO Primary Care Provider Active Dr. Tristan Borrero DO Attending Provider, Referring P rovider Active Team Status: Active Member Role Status Dates Dr. Carlitos Brewer DO Primary Care Provider, Referrin g Provider Active Dr. Matthew Medellin MD Attending Provider, Other Provi ann Active Team Status: Active Member Role Status Dates Dr. Carlitos Brewer DO Primary Care Provider Active Team Status: Inactive Member Role Status Dates Dr. Carlitos Brewer DO Primary Care Provider Active Start: May 24, 2024 End: May 24, 2024 Dr. Carlitos Brewer DO Referring Provider Active Start: May 24, 2024 End: May 24, 2024 Florencia Adrián HEATING AND BLENDING SUPERVISOR, HEATING AND BLENDING SUPERVISOR-C Attending Provider Active Start: May 24, 2024 End: May 24, 2024 Team Status: Inactive Member Role Status Dates Dr. Carlitos Brewer DO Primary Care Provider Active Start: May 24, 2024 End: May 24, 2024 Florencia Adrián HEATING AND BLENDING SUPERVISOR, HEATING AND BLENDING SUPERVISOR-C Attending Provider Active Start: May 24, 2024 End: May 24, 2024 Florencia Adrián HEATING AND BLENDING SUPERVISOR, HEATING AND BLENDING SUPERVISOR-C Referring Provider Active Start: May 24, 2024 End: May 24, 2024 Team Status: Inactive Member Role Status Dates Dr. Carlitos Brewer DO Primary Care Provider Active Start: May 25, 2024 End: May 25, 2024 Florencia Adrián HEATING AND BLENDING SUPERVISOR, HEATING AND BLENDING SUPERVISOR-C Attending Provider Active Start: May 25, 2024 End: May 25, 2024 Florencia Adrián HEATING AND BLENDING SUPERVISOR, HEATING AND BLENDING SUPERVISOR-C Referring Provider Active Start: May 25, 2024 End: May 25, 2024 Team Status: Active Member Role Status Dates Dr. Carlitos Brewer DO Primary Care Provider Active Start: May 27, 2024 Irma Jansen Attending Provider Active Start: May 27, 2024 Team Status: Inactive Member Role Status Dates Dr. Carlitos Brewer DO Primary Care Provider Active Start: May 28, 2024 End: May 28, 2024 Florencia Sampson HEATING AND BLENDING SUPERVISOR, HEATING AND BLENDING SUPERVISOR-C Attending Provider Active Start: May 28, 2024 End: May 28, 2024 Florencia Sampson HEATING AND BLENDING SUPERVISOR, HEATING AND BLENDING SUPERVISOR-C Referring Provider Active Start: May 28, 2024 End: May 28, 2024 Team Status: Inactive Member Role Status Dates Dr. Carlitos Brewer DO Primary Care Provider Active Start: May 31, 2024 End: May 31, 2024 Dr. Carlitos Brewer DO Referring Provider Active Start: May 31, 2024 End: May 31, 2024 Dr. Tristan Borrero DO Attending Provider Active Start: May 31, 2024 End: May 31, 2024 Team Status: Inactive Member Role Status Dates Dr. Carlitos Brewer DO Primary Care Provider Active Start: May 31, 2024 End: May 31, 2024 Dr. Carlitos Brewer DO Referring Provider Active Start: May 31, 2024 End: May 31, 2024 Dr. Jignesh Purcell MD Attending Provider Active Start: May 31, 2024 End: May 31, 2024 Team Status: Inactive Member Role Status Dates Dr. Carlitos Brewer DO Primary Care Provider Active Start: July 01, 2024 End: July 01, 2024 Dr. Carlitos Brewer DO Referring Provider Active Start: July 01, 2024 End: July 01, 2024 Dr. Jignesh Purcell MD Attending Provider Active Start: July 01, 2024 End: July 01, 2024 Team Status: Inactive Member Role Status Dates Dr. Carlitos Brewer DO Primary Care Provider Active Start: August 03, 2024 End: August 03, 2024 Dr. Carlitos Brewer DO Referring Provider Active Start: August 03, 2024 End: August 03, 2024 Dr. Juan M Diaz MD Attending Provider Active S tart: August 03, 2024 End: August 03, 2024 Team Status: Inactive Member Role Status Dates Dr. Carlitos Brewer DO Primary Care Provider Active Start: August 12, 2024 End: August 12, 2024 Dr. Carlitos Brewer DO Referring Provider Active Start: August 12, 2024 End: August 12, 2024 Dr. Tristan Borrero DO Attending Provider Active Start: August 12, 2024 End: August 12, 2024 Team Status: Active Member Role Status Dates Dr. Carlitos Brewer DO Primary Care Provider Active Start: August 17, 2024 Dr. Tristan Borrero DO Attending Provider Active Start: August 17, 2024 Team Status: Inactive Member Role Status Dates Dr. Carlitos Brewer DO Primary Care Provider Active Start: August 19, 2024 End: August 19, 2024 Dr. Carlitos Brewer DO Referring Provider Active Start: August 19, 2024 End: August 19, 2024 Florencia Sampson HEATING AND BLENDING SUPERVISOR, HEATING AND BLENDING SUPERVISOR-C Attending Provider Active Start: August 19, 2024 End: August 19, 2024 Team Status: Active Member Role Status Dates Dr. Carlitos Brewer DO Primary Care Provider Active Start: August 20, 2024 Dr. Tristan Borrero DO Attending Provider Active Start: August 20, 2024 Team Status: Active Member Role Status Dates Dr. Carlitos Brewer DO Primary Care Provider Active Start: August 25, 2024 Dr. Tristan Borrero DO Attending Provider Active Start: August 25, 2024 Team Status: Inactive Member Role Status Dates Dr. Carlitos Brewer DO Primary Care Provider Active Start: August 25, 2024 End: August 25, 2024 Dr. Jignesh Purcell MD Attending Provider Active Start: August 25, 2024 End: August 25, 2024 Dr. Jignesh Purcell MD Referring Provider Active Start: August 25, 2024 End: August 25, 2024 Team Status: Active Member Role Status Dates Dr. Carlitos Brewer DO Primary Care Provider Active Start: September 01, 2024 Dr. Tristan Borrero DO Attending Provider Active Start: September 01, 2024 Team Status: Inactive Member Role Status Dates Dr. Carlitos Brewer DO Primary Care Provider Active Start: September 01, 2024 End: September 01, 2024 Dr. Carlitos Brewer DO Referring Provider Active Start: September 01, 2024 End: September 01, 2024 Dr. Tristan Borrero DO Attending Provider Active Start: September 01, 2024 End: September 01, 2024 Team Status: Inactive Member Role Status Dates Dr. Carlitos Brewer DO Primary Care Provider Active Start: September 08, 2024 End: September 08, 2024 Dr. Carlitos Brewer DO Referring Provider Active Start: September 08, 2024 End: September 08, 2024 Dr. Jignesh Purcell MD Attending Provider Active Start: September 08, 2024 End: September 08, 2024 Team Status: Active Member Role Status Dates Dr. Tristan Borrero DO Attending Provider Active Start: September 08, 2024 Dr. Tristan Borrero DO Referring Provider Active Start: September 08, 2024 Dr. Carlitos Brewer DO Primary Care Provider Active Start: September 08, 2024 Team Status: Active Member Role Status Dates Dr. Carlitos Brewer DO Primary Care Provider Active Start: August 17, 2024 Dr. Tristan Borrero DO Attending Provider Active Start: August 17, 2024 Dr. Tristan Borrero DO Referring Provider Active Start: August 17, 2024 Team Status: Active Member Role Status Dates Dr. Carlitos Brewer DO Primary Care Provider Active Start: August 20, 2024 Dr. Tristan Borrero DO Attending Provider Active Start: August 20, 2024 Dr. Tristan Borrero DO Referring Provider Active Start: August 20, 2024 Team Status: Active Member Role Status Dates Dr. Carlitos Brewer DO Primary Care Provider Active Start: August 25, 2024 Dr. Tristan Borrero DO Attending Provider Active Start: August 25, 2024 Dr. Tristan Borrero DO Referring Provider Active Start: August 25, 2024 Team Status: Inactive Member Role Status Dates Dr. Carlitos Brewer DO Primary Care Provider Active Start: September 01, 2024 End: September 01, 2024 Dr. Tristan Borrero DO Attending Provider Active Start: September 01, 2024 End: September 01, 2024 Dr. Tristan Borrero DO Referring Provider Active Start: September 01, 2024 End: September 01, 2024 Team Status: Active Member Role Status Dates Dr. Carlitos Brewer DO Primary Care Provider Active Start: October 11, 2024 Dr. Darron Washington DO Emergency Provider Active Start: October 11, 2024 Dr. Andrews Watkins MD Admit Provider Active Start: October 11, 2024 Dr. Andrews Watkins MD Attending Provider Active Start: October 11, 2024 Team Status: Inactive Member Role Status Dates Dr. Carlitos Brewer DO Primary Care Provider Active Start: October 11, 2024 End: October 13, 2024 Dr. Darron Washington DO Emergency Provider Active Start: October 11, 2024 End: October 13, 2024 Dr. Andrews Watkins MD Admit Provider Active Start: October 11, 2024 End: October 13, 2024 Dr. Andrews Watkins MD Attending Provider Active Start: October 11, 2024 End: October 13, 2024 Dr. Kitty Pruett MD Other Provider Active S tart: October 11, 2024 End: October 13, 2024 Dr. Kitty Pruett MD Other Provider Active S tart: October 11, 2024 Team Status: Active Member Role Status Dates Dr. Carlitos Brewer DO Primary Care Provider Active Start: October 11, 2024 Dr. Darron Washington DO Emergency Provider Active Start: October 11, 2024 Dr. Andrews Watkins MD Admit Provider Active Start: October 11, 2024 Dr. Andrews Watkins MD Attending Provider Active Start: October 11, 2024 Dr. Andrews Watkins MD Other Provider Active Start: October 11, 2024 Dr. Kitty Pruett MD Other Provider Active S tart: October 11, 2024 Team Status: Active Member Role Status Dates Dr. Carlitos Brewer DO Primary Care Provider Active Start: October 12, 2024 Dr. Darron Washington DO Emergency Provider Active Start: October 12, 2024 Dr. Andrews Watkins MD Admit Provider Active Start: October 12, 2024 Dr. Andrews Watkins MD Other Provider Active Start: October 12, 2024 Dr. Kitty Pruett MD Attending Provider Active Start: October 12, 2024 Dr. Kitty Pruett MD Other Provider Active S tart: October 12, 2024 Team Status: Active Member Role Status Dates Dr. Carlitos Brewer DO Primary Care Provider Active Start: October 12, 2024 Dr. Darron Washington DO Emergency Provider Active Start: October 12, 2024 Dr. Andrews Watkins MD Admit Provider Active Start: October 12, 2024 Dr. Andrews Watkins MD Attending Provider Active Start: October 12, 2024 Dr. Andrews Watkins MD Other Provider Active Start: October 12, 2024 Dr. Kitty Pruett MD Other Provider Active S tart: October 12, 2024 Team Status: Active Member Role Status Dates Dr. Carlitos Brewer DO Primary Care Provider Active Start: October 13, 2024 Dr. Darron Washington DO Emergency Provider Active Start: October 13, 2024 Dr. Andrews Watkins MD Admit Provider Active Start: October 13, 2024 Dr. Andrews Watkins MD Other Provider Active Start: October 13, 2024 Dr. Kitty Pruett MD Attending Provider Active Start: October 13, 2024 Dr. Kitty Pruett MD Other Provider Active S tart: October 13, 2024 Team Status: Active Member Role Status Dates Dr. Carlitos Brewer DO Primary Care Provider Active Start: October 13, 2024 Dr. Darron Washington DO Emergency Provider Active Start: October 13, 2024 Dr. Andrews Watkins MD Admit Provider Active Start: October 13, 2024 Dr. Andrews Watkins MD Attending Provider Active Start: October 13, 2024 Dr. Andrews Watkins MD Other Provider Active Start: October 13, 2024 Dr. Kitty Pruett MD Other Provider Active S tart: October 13, 2024 Team Status: Inactive Member Role Status Dates Dr. Carlitos Brewer DO Primary Care Provider Active Start: October 19, 2024 End: October 19, 2024 Dr. Carlitos Brewer DO Referring Provider Active Start: October 19, 2024 End: October 19, 2024 Dr. Jignesh Purcell MD Attending Provider Active Start: October 19, 2024 End: October 19, 2024 Team Status: Active Member Role Status Dates Dr. Tristan Borrero DO Attending Provider Active Start: October 19, 2024 Dr. Tristan Borrero DO Referring Provider Active Start: October 19, 2024 Dr. Carlitos Brewer DO Primary Care Provider Active Start: October 19, 2024 Team Status: Inactive Member Role Status Dates Dr. Carlitos Brewer DO Primary Care Provider Active Start: October 20, 2024 End: October 20, 2024 Dr. Carlitos Brewer DO Referring Provider Active Start: October 20, 2024 End: October 20, 2024 Dr. Kitty Pruett MD Attending Provider Active Start: October 20, 2024 End: October 20, 2024 Team Status: Active Member Role/Relationship Status Dates Dr. Carlitos Brewer DO Primary Care Provider Active Team Status: Inactive Member Role/Relationship Status Dates Dr. Carlitos Brewer DO Primary Care Provider Active Start: July 01, 2024 End: July 01, 2024 Dr. Carlitos Brewer DO Referring Provider Active Start: July 01, 2024 End: July 01, 2024 Dr. Jignesh Purcell MD Attending Provider Active Start: July 01, 2024 End: July 01, 2024 Team Status: Inactive Member Role/Relationship Status Dates Dr. Carlitos Brewer DO Primary Care Provider Active Start: August 03, 2024 End: August 03, 2024 Dr. Carlitos Brewer DO Referring Provider Active Start: August 03, 2024 End: August 03, 2024 Dr. Juan M Diaz MD Attending Provider Active S tart: August 03, 2024 End: August 03, 2024 Team Status: Inactive Member Role/Relationship Status Dates Dr. Carlitos Brewer DO Primary Care Provider Active Start: August 12, 2024 End: August 12, 2024 Dr. Carlitos Brewer DO Referring Provider Active Start: August 12, 2024 End: August 12, 2024 Dr. Tristan Borrero DO Attending Provider Active Start: August 12, 2024 End: August 12, 2024 Team Status: Active Member Role/Relationship Status Dates Dr. Carlitos Brewer DO Primary Care Provider Active Start: August 17, 2024 Dr. Tristan Borrero DO Attending Provider Active Start: August 17, 2024 Dr. Tristan Borrero DO Referring Provider Active Start: August 17, 2024 Team Status: Inactive Member Role/Relationship Status Dates Dr. Carlitos Brewer DO Primary Care Provider Active Start: August 19, 2024 End: August 19, 2024 Dr. Carlitos Brewer DO Referring Provider Active Start: August 19, 2024 End: August 19, 2024 Florencia Sampson HEATING AND BLENDING SUPERVISOR, HEATING AND BLENDING SUPERVISOR-C Attending Provider Active Start: August 19, 2024 End: August 19, 2024 Team Status: Active Member Role/Relationship Status Dates Dr. Carlitos Brewer DO Primary Care Provider Active Start: August 20, 2024 Dr. Tristan Borrero DO Attending Provider Active Start: August 20, 2024 Dr. Tristan Borrero DO Referring Provider Active Start: August 20, 2024 Team Status: Active Member Role/Relationship Status Dates Dr. Carlitos Brewer DO Primary Care Provider Active Start: August 25, 2024 Dr. Tristan Borrero DO Attending Provider Active Start: August 25, 2024 Dr. Tristan Borrero DO Referring Provider Active Start: August 25, 2024 Team Status: Inactive Member Role/Relationship Status Dates Dr. Carlitos Brewer DO Primary Care Provider Active Start: August 25, 2024 End: August 25, 2024 Dr. Jignesh Purcell MD Attending Provider Active Start: August 25, 2024 End: August 25, 2024 Dr. Jignesh Purcell MD Referring Provider Active Start: August 25, 2024 End: August 25, 2024 Team Status: Active Member Role/Relationship Status Dates Dr. Carlitos Brewer DO Primary Care Provider Active Start: September 01, 2024 Dr. Tristan Borrero DO Attending Provider Active Start: September 01, 2024 Team Status: Inactive Member Role/Relationship Status Dates Dr. Carlitos Brewer DO Primary Care Provider Active Start: September 01, 2024 End: September 01, 2024 Dr. Tristan Borrero DO Attending Provider Active Start: September 01, 2024 End: September 01, 2024 Dr. Tristan Borrero DO Referring Provider Active Start: September 01, 2024 End: September 01, 2024 Team Status: Inactive Member Role/Relationship Status Dates Dr. Carlitos Brewer DO Primary Care Provider Active Start: September 08, 2024 End: September 08, 2024 Dr. Carlitos Brewer DO Referring Provider Active Start: September 08, 2024 End: September 08, 2024 Dr. Jignesh Purcell MD Attending Provider Active Start: September 08, 2024 End: September 08, 2024 Team Status: Inactive Member Role/Relationship Status Dates Dr. Carlitos Brewer DO Primary Care Provider Active Start: October 11, 2024 End: October 13, 2024 Dr. Darron Washington DO Emergency Provider Active Start: October 11, 2024 End: October 13, 2024 Dr. Andrews Watkins MD Admit Provider Active Start: October 11, 2024 End: October 13, 2024 Dr. Andrews Watkins MD Attending Provider Active Start: October 11, 2024 End: October 13, 2024 Dr. Kitty Pruett MD Other Provider Active S tart: October 11, 2024 End: October 13, 2024 Dr. Kitty Pruett MD Attending Provider Active Start: October 11, 2024 Dr. Kitty Pruett MD Other Provider Active S tart: October 11, 2024 Team Status: Active Member Role/Relationship Status Dates Dr. Carlitos Brewer DO Primary Care Provider Active Start: October 11, 2024 Dr. Darron Washington DO Emergency Provider Active Start: October 11, 2024 Dr. Andrews Watkins MD Admit Provider Active Start: October 11, 2024 Dr. Andrews Watkins MD Attending Provider Active Start: October 11, 2024 Dr. Andrews Watkins MD Other Provider Active Start: October 11, 2024 Dr. Kitty Pruett MD Other Provider Active S tart: October 11, 2024 Team Status: Active Member Role/Relationship Status Dates Dr. Carlitos Brewer DO Primary Care Provider Active Start: October 12, 2024 Dr. Darron Washington DO Emergency Provider Active Start: October 12, 2024 Dr. Andrews Watkins MD Admit Provider Active Start: October 12, 2024 Dr. Andrews Watkins MD Other Provider Active Start: October 12, 2024 Dr. Kitty Pruett MD Attending Provider Active Start: October 12, 2024 Dr. Kitty Pruett MD Other Provider Active S tart: October 12, 2024 Team Status: Active Member Role/Relationship Status Dates Dr. Carlitos Brewer DO Primary Care Provider Active Start: October 12, 2024 Dr. Darron Washington DO Emergency Provider Active Start: October 12, 2024 Dr. Andrews Watkins MD Admit Provider Active Start: October 12, 2024 Dr. Andrews Watkins MD Attending Provider Active Start: October 12, 2024 Dr. Andrews Watkins MD Other Provider Active Start: October 12, 2024 Dr. Kitty Pruett MD Other Provider Active S tart: October 12, 2024 Team Status: Active Member Role/Relationship Status Dates Dr. Carlitos Brewer DO Primary Care Provider Active Start: October 13, 2024 Dr. Darron Washington DO Emergency Provider Active Start: October 13, 2024 Dr. Andrews Watkins MD Admit Provider Active Start: October 13, 2024 Dr. Andrews Watkins MD Other Provider Active Start: October 13, 2024 Dr. Kitty Pruett MD Attending Provider Active Start: October 13, 2024 Dr. Kitty Pruett MD Other Provider Active S tart: October 13, 2024 Team Status: Active Member Role/Relationship Status Dates Dr. Carlitos Brewer DO Primary Care Provider Active Start: October 13, 2024 Dr. Darron Washington DO Emergency Provider Active Start: October 13, 2024 Dr. Andrews Watkins MD Admit Provider Active Start: October 13, 2024 Dr. Andrews Watkins MD Attending Provider Active Start: October 13, 2024 Dr. Andrews Watkins MD Other Provider Active Start: October 13, 2024 Dr. Kitty Pruett MD Other Provider Active S tart: October 13, 2024 Team Status: Inactive Member Role/Relationship Status Dates Dr. Carlitos Brewer DO Primary Care Provider Active Start: October 19, 2024 End: October 19, 2024 Dr. Carlitos Brewer DO Referring Provider Active Start: October 19, 2024 End: October 19, 2024 Dr. Jignesh Purcell MD Attending Provider Active Start: October 19, 2024 End: October 19, 2024 Team Status: Active Member Role/Relationship Status Dates Dr. Tristan Borrero DO Attending Provider Active Start: October 19, 2024 Dr. Tristan Borrero DO Referring Provider Active Start: October 19, 2024 Dr. Carlitos Brewer DO Primary Care Provider Active Start: October 19, 2024 Team Status: Inactive Member Role/Relationship Status Dates Dr. Carlitos Brewer DO Primary Care Provider Active Start: October 20, 2024 End: October 20, 2024 Dr. Carlitos Brewer DO Referring Provider Active Start: October 20, 2024 End: October 20, 2024 Dr. Kitty Pruett MD Attending Provider Active Start: October 20, 2024 End: October 20, 2024 Team Status: Inactive Member Role/Relationship Status Dates Dr. Carlitos Brewer DO Primary Care Provider Active Start: October 26, 2024 End: October 26, 2024 Dr. Kitty Pruett MD Attending Provider Active Start: October 26, 2024 End: October 26, 2024 Dr. Kitty Pruett MD Referring Provider Active Start: October 26, 2024 End: October 26, 2024 Team Status: Active Member Role/Relationship Status Dates Dr. Carlitos Brewer DO Primary Care Provider Active Start: October 26, 2024 Dr. Kitty Pruett MD Attending Provider Active Start: October 26, 2024 Dr. Kitty Pruett MD Referring Provider Active Start: October 26, 2024 Dr. Kitty Pruett MD Other Provider Active S tart: October 26, 2024 Economics Professor Relationship Specialty Start Date End Date Mango Cuba MD [address] [place] [id number] PCP - General Family Medicine 09/19/21 Tristan Borrero DO [address] [facility] [address] [id number] Radiation Oncologist Radiation Oncology 09/19/21 Sukumar Whitfield MD [address] [place] [id number] Radiation Oncologist Radiation Oncology 09/19/21 Jignesh Purcell MB [facility] [address] [place] [address] Referring Provider Medical Oncology 10/09/24 Sanna Buenrostro, RUBA Registered Nurse 10/09/24 Team Status: Inactive Member Role/Relationship Status Dates Dr. Carlitos Brewer DO Primary Care Provider Active Start: August 03, 2024 End: August 03, 2024 Dr. Carlitos Brewer DO Referring Provider Active Start: August 03, 2024 End: August 03, 2024 Dr. Juan M Diaz MD Attending Provider Active S tart: August 03, 2024 End: August 03, 2024 Team Status: Inactive Member Role/Relationship Status Dates Dr. Carlitos Brewer DO Primary Care Provider Active Start: August 12, 2024 End: August 12, 2024 Dr. Carlitos Brewer DO Referring Provider Active Start: August 12, 2024 End: August 12, 2024 Dr. Tristan Borrero DO Attending Provider Active Start: August 12, 2024 End: August 12, 2024 Team Status: Active Member Role/Relationship Status Dates Dr. Carlitos Brewer DO Primary Care Provider Active Start: August 17, 2024 Dr. Tristan Borrero DO Attending Provider Active Start: August 17, 2024 Dr. Tristan Borrero DO Referring Provider Active Start: August 17, 2024 Team Status: Inactive Member Role/Relationship Status Dates Dr. Carlitos Brewer DO Primary Care Provider Active Start: August 19, 2024 End: August 19, 2024 Dr. Carlitos Brewer DO Referring Provider Active Start: August 19, 2024 End: August 19, 2024 Florencia Sampson HEATING AND BLENDING SUPERVISOR, HEATING AND BLENDING SUPERVISOR-C Attending Provider Active Start: August 19, 2024 End: August 19, 2024 Team Status: Active Member Role/Relationship Status Dates Dr. Carlitos Brewer DO Primary Care Provider Active Start: August 20, 2024 Dr. Tristan Borrero DO Attending Provider Active Start: August 20, 2024 Dr. Tristan Borrero DO Referring Provider Active Start: August 20, 2024 Team Status: Active Member Role/Relationship Status Dates Dr. Carlitos Brewer DO Primary Care Provider Active Start: August 25, 2024 Dr. Tristan Borrero DO Attending Provider Active Start: August 25, 2024 Dr. Tristan Borrero DO Referring Provider Active Start: August 25, 2024 Team Status: Inactive Member Role/Relationship Status Dates Dr. Carlitos Brewer DO Primary Care Provider Active Start: August 25, 2024 End: August 25, 2024 Dr. Jignesh Purcell MD Attending Provider Active Start: August 25, 2024 End: August 25, 2024 Dr. Jignesh Purcell MD Referring Provider Active Start: August 25, 2024 End: August 25, 2024 Team Status: Active Member Role/Relationship Status Dates Dr. Carlitos Brewer DO Primary Care Provider Active Start: September 01, 2024 Dr. Tristan Borrero DO Attending Provider Active Start: September 01, 2024 Team Status: Inactive Member Role/Relationship Status Dates Dr. Carlitos Brewer DO Primary Care Provider Active Start: September 01, 2024 End: September 01, 2024 Dr. Tristan Borrero DO Attending Provider Active Start: September 01, 2024 End: September 01, 2024 Dr. Tristan Borrero DO Referring Provider Active Start: September 01, 2024 End: September 01, 2024 Team Status: Inactive Member Role/Relationship Status Dates Dr. Carlitos Brewer DO Primary Care Provider Active Start: September 08, 2024 End: September 08, 2024 Dr. Carlitos Brewer DO Referring Provider Active Start: September 08, 2024 End: September 08, 2024 Dr. Jignesh Purcell MD Attending Provider Active Start: September 08, 2024 End: September 08, 2024 Team Status: Inactive Member Role/Relationship Status Dates Dr. Carlitos Brewer DO Primary Care Provider Active Start: October 11, 2024 End: October 13, 2024 Dr. Darron Washington DO Emergency Provider Active Start: October 11, 2024 End: October 13, 2024 Dr. Andrews Watkins MD Admit Provider Active Start: October 11, 2024 End: October 13, 2024 Dr. Andrews Watkins MD Attending Provider Active Start: October 11, 2024 End: October 13, 2024 Dr. Kitty Pruett MD Other Provider Active S tart: October 11, 2024 End: October 13, 2024 Dr. Kitty Pruett MD Attending Provider Active Start: October 11, 2024 Dr. Kitty Pruett MD Other Provider Active S tart: October 11, 2024 Team Status: Active Member Role/Relationship Status Dates Dr. Carlitos Brewer DO Primary Care Provider Active Start: October 11, 2024 Dr. Darron Washington DO Emergency Provider Active Start: October 11, 2024 Dr. Andrews Watkins MD Admit Provider Active Start: October 11, 2024 Dr. Andrews Watkins MD Attending Provider Active Start: October 11, 2024 Dr. Andrews Watkins MD Other Provider Active Start: October 11, 2024 Dr. Kitty Pruett MD Other Provider Active S tart: October 11, 2024 Team Status: Active Member Role/Relationship Status Dates Dr. Carlitos Brewer DO Primary Care Provider Active Start: October 12, 2024 Dr. Darron Washington DO Emergency Provider Active Start: October 12, 2024 Dr. Andrews Watkins MD Admit Provider Active Start: October 12, 2024 Dr. Andrews Watkins MD Other Provider Active Start: October 12, 2024 Dr. Kitty Pruett MD Attending Provider Active Start: October 12, 2024 Dr. Kitty Pruett MD Other Provider Active S tart: October 12, 2024 Team Status: Active Member Role/Relationship Status Dates Dr. Carlitos Brewer DO Primary Care Provider Active Start: October 12, 2024 Dr. Darron Washington DO Emergency Provider Active Start: October 12, 2024 Dr. Andrews Watkins MD Admit Provider Active Start: October 12, 2024 Dr. Andrews Watkins MD Attending Provider Active Start: October 12, 2024 Dr. Andrews Watkins MD Other Provider Active Start: October 12, 2024 Dr. Kitty Pruett MD Other Provider Active S tart: October 12, 2024 Team Status: Active Member Role/Relationship Status Dates Dr. Carlitos Brewer DO Primary Care Provider Active Start: October 13, 2024 Dr. Darron Washington DO Emergency Provider Active Start: October 13, 2024 Dr. Andrews Watkins MD Admit Provider Active Start: October 13, 2024 Dr. Andrews Watkins MD Other Provider Active Start: October 13, 2024 Dr. Kitty Pruett MD Attending Provider Active Start: October 13, 2024 Dr. Kitty Pruett MD Other Provider Active S tart: October 13, 2024 Team Status: Active Member Role/Relationship Status Dates Dr. Carlitos Brewer DO Primary Care Provider Active Start: October 13, 2024 Dr. Darron Washington DO Emergency Provider Active Start: October 13, 2024 Dr. Andrews Watkins MD Admit Provider Active Start: October 13, 2024 Dr. Andrews Watkins MD Attending Provider Active Start: October 13, 2024 Dr. Andrews Watkins MD Other Provider Active Start: October 13, 2024 Dr. Kitty Pruett MD Other Provider Active S tart: October 13, 2024 Team Status: Inactive Member Role/Relationship Status Dates Dr. Carlitos Brewer DO Primary Care Provider Active Start: October 19, 2024 End: October 19, 2024 Dr. Carlitos Brewer DO Referring Provider Active Start: October 19, 2024 End: October 19, 2024 Dr. Jignesh Purcell MD Attending Provider Active Start: October 19, 2024 End: October 19, 2024 Team Status: Inactive Member Role/Relationship Status Dates Dr. Carlitos Brewer DO Primary Care Provider Active Start: October 20, 2024 End: October 20, 2024 Dr. Carlitos Brewer DO Referring Provider Active Start: October 20, 2024 End: October 20, 2024 Dr. Kitty Pruett MD Attending Provider Active Start: October 20, 2024 End: October 20, 2024 Team Status: Inactive Member Role/Relationship Status Dates Dr. Carlitos Brewer DO Primary Care Provider Active Start: October 26, 2024 End: October 26, 2024 Dr. Kitty Pruett MD Attending Provider Active Start: October 26, 2024 End: October 26, 2024 Dr. Kitty Pruett MD Referring Provider Active Start: October 26, 2024 End: October 26, 2024 Team Status: Active Member Role/Relationship Status Dates Dr. Carlitos Brewer DO Primary Care Provider Active Start: October 26, 2024 End: October 26, 2024 Dr. Juan M Diaz MD Attending Provider Active S tart: October 26, 2024 End: October 26, 2024 Dr. Kitty Pruett MD Referring Provider Active Start: October 26, 2024 End: October 26, 2024 Team Status: Active Member Role/Relationship Status Dates Dr. Carlitos Brewer DO Primary Care Provider Active Start: October 26, 2024 Dr. Kitty Pruett MD Attending Provider Active Start: October 26, 2024 Dr. Kitty Pruett MD Referring Provider Active Start: October 26, 2024 Dr. Kitty Pruett MD Other Provider Active S tart: October 26, 2024 Team Status: Inactive Member Role/Relationship Status Dates Dr. Carlitos Brewer DO Primary Care Provider Active Start: November 04, 2024 End: November 04, 2024 Dr. Carlitos Brewer DO Referring Provider Active Start: November 04, 2024 End: November 04, 2024 Dr. Jignesh Purcell MD Attending Provider Active Start: November 04, 2024 End: November 04, 2024 Team Status: Active Member Role/Relationship Status Dates Dr. Tristan Borrero DO Attending Provider Active Start: November 04, 2024 Dr. Tristan Borrero DO Referring Provider Active Start: November 04, 2024 Dr. Carlitos Brewer DO Primary Care Provider Active Start: November 04, 2024 Team Status: Inactive Member Role/Relationship Status Dates Dr. Carlitos Brewer DO Primary Care Provider Active Start: November 10, 2024 End: November 10, 2024 Dr. Carlitos Brewer DO Referring Provider Active Start: November 10, 2024 End: November 10, 2024 Alejandra FORBES PA-C Attending Provider Active Start: November 10, 2024 End: November 10, 2024 Team Status: Inactive Member Role/Relationship Status Dates Dr. Carlitos Brewer DO Primary Care Provider Active Start: 2024 End: 2024 Dr. Carlitos Brewer DO Referring Provider Active Start: 2024 End: 2024 Dr. Jignesh Purcell MD Attending Provider Active Start: 2024 End: 2024 Team Status: Active Member Role/Relationship Status Dates Dr. Carlitos Brewer DO Primary care physician Active Team Status: Inactive Member Role/Relationship Status Dates Dr. Carlitos Brewer DO Primary care physician Active Start: October 26, 2024 End: October 26, 2024 Dr. Kitty Pruett MD Attending physician Active Start: October 26, 2024 End: October 26, 2024 Dr. Kitty Pruett MD Referring Provider Active Start: October 26, 2024 End: October 26, 2024 Team Status: Active Member Role/Relationship Status Dates Dr. Carlitos Brewer DO Primary care physician Active Start: October 26, 2024 End: October 26, 2024 Dr. Juan M Diaz MD Attending physician Active Start: October 26, 2024 End: October 26, 2024 Dr. Kitty Pruett MD Referring Provider Active Start: October 26, 2024 End: October 26, 2024 Team Status: Active Member Role/Relationship Status Dates Dr. Carlitos Brewer DO Primary care physician Active Start: October 26, 2024 Dr. Kitty Pruett MD Attending physician Active Start: October 26, 2024 Dr. Kitty Pruett MD Referring Provider Active Start: October 26, 2024 Dr. Kitty Pruett MD Nurse Practitioner Active Start: October 26, 2024 Team Status: Inactive Member Role/Relationship Status Dates Dr. Carlitos Brewer DO Primary care physician Active Start: November 04, 2024 End: November 04, 2024 Dr. Carlitos Brewer DO Referring Provider Active Start: November 04, 2024 End: November 04, 2024 Dr. Jignesh Purcell MD Attending physician Active Start: November 04, 2024 End: November 04, 2024 Team Status: Active Member Role/Relationship Status Dates Dr. Tristan Borrero DO Attending physician Active Start: November 04, 2024 Dr. Tristan Borrero DO Referring Provider Active Start: November 04, 2024 Dr. Carlitos Brewer DO Primary care physician Active Start: November 04, 2024 Team Status: Inactive Member Role/Relationship Status Dates Dr. Carlitos Brewer DO Primary care physician Active Start: November 10, 2024 End: November 10, 2024 Dr. Carlitos Brewer DO Referring Provider Active Start: November 10, 2024 End: November 10, 2024 Alejandra FORBES PA-C Attending physician Active Start: November 10, 2024 End: November 10, 2024 Team Status: Inactive Member Role/Relationship Status Dates Dr. Carlitos Brewer DO Primary care physician Active Start: 2024 End: 2024 Dr. Carlitos Brewer DO Referring Provider Active Start: 2024 End: 2024 Dr. Jignesh Purcell MD Attending physician Active Start: 2024 End: 2024 Team Status: Inactive Member Role/Relationship Status Dates Dr. Carlitos Brewer DO Primary care physician Active Start: February 03, 2025 End: February 03, 2025 Dr. Carlitos Brewer DO Referring Provider Active Start: February 03, 2025 End: February 03, 2025 Catalino Williamson HEATING AND BLENDING SUPERVISOR, HEATING AND BLENDING SUPERVISOR-C Attending physician Active Start: February 03, 2025 End: February 03, 2025 Care Team (unrecognized sect ion and content) Care Team Personnel Name: MANGO CUBA MD Position: P4 Physician - Primary Care Member Role: Primary Care Physician Address: Address: [address] [place] [id number] Care Team Related Persons Name: SANDHYA EDMONDSON Address: [address] [phone] (unrecognized sect ion and content) No Status Records FoundNo Status Records FoundNo Status Records FoundNo Status Records Found INFORMATION SOURCE (unrecogn ized section and content) DATE CREATED AUTHOR 12/14/2023 [facility] ([place]) DATE CREATED AUTHOR AUTHOR'S ORGANIZ ATION 10/22/2024 [facility] DATE CREATED AUTHOR AUTHOR'S ORGANIZ ATION 01/01/2025 [facility] DATE CREATED AUTHOR AUTHOR'S ORGANIZ ATION 02/05/2025 [facility] FOR RECORDS PERTAINING TO PATIENTS WHO ARE [...] BE BASED ON THE PRIMARY CLINICAL RECORDS. [employer] provides no warranty or guarantee of the accuracy or completeness of information in this document.
[2025-03-03] MEDS: Oxymetazoline 0.05% 1 SPRAY SPRAY.BTL 2 SPRAY NASAL (21:07)
[2025-03-03] MEDS: Lidocaine 4% 50 ML Bottle TOPICAL (21:08)
--- NOTE | 2025-03-03 21:44 | EX.ED.DYSGE1 ---
HPI History of Present Illness Chief Complaint: Nosebleed Narrative Narrative: 64-year-old male, according to his family is on 5 days of respite from hospice, presents with epistaxis mainly out of his right nares. He has past medical history of atrial fibrillation and is on Xarelto. He has been using his nasal cannula oxygen more frequently for comfort measures. He presents because at the facility where he is staying, they were unable to stop his nosebleeding. He states its mainly out of the right side. He denies any other bleeding diathesis. Family states that they sent him in because of the continued bleeding from his right naris. [facility] Medical History Cancer Ambulates with cane Former smoker Chronic cough History of Holter monitoring Anxiety Hoarseness of voice Bilateral lower extremity edema Encounter for chemotherapy management History of steroid therapy Arthritis Gastric reflux Patient uses snuff Shortness of breath on exertion History of pain when walking History of edema History of atrial fibrillation Encounter for education Metastasis to bone Regional lymph node metastasis present Rising PSA following treatment for malignant neoplasm of prostate Prostate cancer metastatic to intraabdominal lymph node Edema History of COVID-19 Wears hearing aid Wears contact lenses Alcohol use DVT (deep venous thrombosis) Back pain Injury of head and neck Migraine headache History of echocardiogram History of stress test Cardiology follow-up encounter Hypertension Prostate cancer Acute on chronic diastolic (congestive) heart failure Paroxysmal supraventricular tachycardia Asthma Paroxysmal atrial flutter (08/18/18) Intermittent palpitations Obesity Home Medications ?Medication ?Instructions ?Recorded ?Last Taken ?Type albuterol sulfate 90 mcg/actuation 2 puff inhalation Q6H PRN Asthma 09/07/18 11/15/20 06:00 History aerosol inhaler (Ventolin HFA) albuterol sulfate 2.5 mg/3 mL 1.25 mg inhalation Q6H PRN PRN 06/28/20 08/25/23 History (0.083 %) solution for nebulization Asthma montelukast 10 mg tablet 10 mg PO QHS asthma 07/05/20 10/25/24 History calcium carbonate (Calcium 600) 600 mg PO DAILY supplement 08/15/23 10/25/24 History fluticasone 100 mcg-salmeterol 50 1 inh inhalation Q12H asthma 10/06/23 10/26/24 History mcg/dose blistr powdr for inhalation (Advair Diskus) omeprazole 20 mg tablet,delayed 20 mg PO QHS gerd 11/03/23 10/25/24 History release flecainide 100 mg tablet 100 mg PO BID bp #180 TABLETS 08/03/24 10/25/24 Rx metoprolol succinate 100 mg 100 mg PO DAILY bp #90 tabs 08/03/24 10/25/24 Rx tablet,extended release 24 hr rivaroxaban 20 mg tablet 20 mg PO QHS BLOOD THINNER #90 tabs 08/03/24 10/22/24 Rx polyethylene glycol 3350 17 4 g PO ONCE PRN constipation 12/01/24 Unknown History gram/dose oral powder (Miralax) oxycodone 10 mg tablet 10 mg PO Q4H PRN pain 02/03/25 Unknown History cyclobenzaprine 5 mg tablet 5 mg PO TID PRN PRN muscle spasm 03/03/25 Unknown History dexamethasone 4 mg tablet 8 mg PO DAILY 03/03/25 Unknown History lorazepam 0.5 mg tablet (Ativan) 0.5 mg PO Q4H PRN anxiety 03/03/25 Unknown History oxycodone 20 mg tablet 20 mg PO Q4H PRN pain 03/03/25 Unknown History oxycodone 30 mg tablet 30 mg PO QHS 03/03/25 Unknown History Allergy/AdvReac Type Severity Reaction Status Date / Time ciprofloxacin (From Cipro) Allergy Unknown swelling Verified 03/03/25 20:39 Family History Mother CAD (coronary artery disease) Kidney disease Father Heart disease CHF Lung cancer Uncle Myocardial infarction Paternal from [place] age 38 Surgical History S/P laparoscopic cholecystectomy History of surgery History of cardiac catheterization Hx of cystoscopy History of prostatectomy (07/05/20) History of amputation of finger of right hand History of left inguinal hernia repair History of bilateral inguinal hernia repair History of arthroscopy of left knee Social History housing: other Smoking Status: Unknown if ever smoked Smokeless tobacco user: chewing tobacco and other alcohol intake: current alcohol intake frequency: a few times a week Alcohol type: beer details: 12 pack or more in a week substance use type: does not use caffeine: No ROS ROS ED ROS Narrative Review of systems positive for bleeding from right nostril. Denies other bleeding diathesis. Increased oxygen per nasal cannula use. EXAM Physical Exam Narrative Exam Narrative: Afebrile. Vital signs noted. Nontoxic-appearing. Cardiovascular examination reveals regular rate and rhythm. Decreased breath sounds anteriorly, mild tachypnea. Abdomen soft and nontender. HEENT examination does show dried blood at the right nares. Positive clot in posterior pharynx but no brisk, active bleeding. Airway patent. Const Vital Signs: 03/03/25 20:36 Temperature 98.1 F Temperature Source Oral Pulse Rate 96 Respiratory Rate 20 H Blood Pressure 113/81 H Blood Pressure Mean 91 Pulse Ox 99 Oxygen Delivery Method Nasal Cannula Oxygen Flow Rate (L/min) 3 MDM MDM MDM Narrative Medical decision making narrative: I do not feel differential diagnosis is applicable. I discussed with the patient and his family treatment for his epistaxis should it continue profusely. Afrin and lidocaine 4% were ordered as well as epistaxis tray. Patient cleared large clot by blowing his nose, and clearing his throat. There was a large clot that was extricated from his mouth. Upon reinspection, there is no clot in the right nares and no active bleeding, no posterior pharynx bleeding. I offered to insert a lidocaine 4% and Afrin soaked cottonball in the patient's nares to see if there was an area that could be cauterized, but the patient declined. As he is not having active bleeding, he would like to be discharged. He was discharged with a nasal clamp and told to apply pressure for 10 to 15 minutes should nosebleeding returns. He is comfortable with discharge. Return instructions reviewed. Disposition is discharged home in stable condition. History & Record Review Discussion w/independent historian: Patient and Family Discharge Plan Triage Chief Complaint: Nosebleed ED Provider: Eleazar Churchill Dx/Rx/DC Orders Clinical Impression: Epistaxis, Anticoagulant long-term use, Hospice care patient Instructions: ED Epistaxis (Adult) Prescriptions: No Action albuterol sulfate [Ventolin HFA] 90 mcg/actuation HFA aerosol inhaler 2 puff INHALATION Q6H PRN (Reason: Asthma) flecainide 100 mg tablet 100 mg PO BID Qty: 180 3RF metoprolol succinate 100 mg tablet extended release 24 hr 100 mg PO DAILY Qty: 90 3RF rivaroxaban 20 mg tablet 20 mg PO QHS Qty: 90 3RF omeprazole 20 mg tablet,delayed release (DR/EC) 20 mg PO QHS polyethylene glycol 3350 [Miralax] 17 gram/dose powder 4 g PO ONCE PRN (Reason: constipation) oxycodone 10 mg tablet 10 mg PO Q4H PRN (Reason: pain) Patient Comments: take 1-2 tablets every 4-6 hours as needed Rx Instructions: alternating with 20mg albuterol sulfate 2.5 MG/3 ML solution for nebulization 1.25 mg INHALATION Q6H PRN PRN (Reason: Asthma) montelukast 10 MG tablet 10 mg PO QHS fluticasone propion-salmeterol [Advair Diskus] 100-50 mcg/dose blister with device 1 inh INHALATION Q12H calcium carbonate [Calcium 600] 600 mg calcium (1,500 mg) tablet 600 mg PO DAILY lorazepam [Ativan] 0.5 mg tablet 0.5 mg PO Q4H PRN (Reason: anxiety) cyclobenzaprine 5 mg tablet 5 mg PO TID PRN PRN (Reason: muscle spasm) dexamethasone 4 mg tablet 8 mg PO DAILY oxycodone 20 mg tablet 20 mg PO Q4H PRN (Reason: pain) oxycodone 30 mg tablet 30 mg PO QHS Primary Care Provider: Carlitos Brewer Referrals: Lucas Wilkes MD [Med Staff - Active Staff, Ear Nose Throat (ENT)] - 1-2 Days if not improving Carlitos Brewer DO [Primary Care Provider, Medical] Activity Restrictions/Additional Instructions: Use saline nasal spray to moisten tissues of your nose as you are wearing more nasal cannula oxygen. It can dry out the tissues and cause nosebleeds. You may want to consider holding your Xarelto for the next 1 to 2 days. Use nasal clamp should epistaxis/nosebleed to return. Return with increased bleeding, new or worsening symptoms. Print Language: Swazi Disposition Disposition: Home, Self Care
[2025-03-03 22:26] VITALS: BP 117/78; PULSE 83; RESP 18; TEMP 36.4; O2SAT 99
[2025-03-03] MEDS: oxyCODONE HCl Cr 10 MG Tablet 20 MG PO (22:50)
--- NOTE | 2025-03-03 23:40 | ED.RN ---
Daughter requesting to take Pt back to hospice. Per Dr Manisha anne for daughter to transport Pt. Daughter obtained O2 tank from hospice and returned to transport Pt back to hospice. Report given to Candida at hospice and hospice aware that Pt is currently returning to inpatient hospice unit.
== END 2025-03-03 23:43 | disposition home or self-care (01) ==
PROVIDERS: Emergency Provider Emergency Medicine; Visit Provider Emergency Medicine
DX: R04.0 Epistaxis (principal); I11.0 Hypertensive heart disease with heart failure; I50.23 Acute on chronic systolic (congestive) heart failure; I48.91 Unspecified atrial fibrillation; F17.220 Nicotine dependence, chewing tobacco, uncomplicated; Z79.01 Long term (current) use of anticoagulants; Z79.899 Other long term (current) drug therapy; Z86.16 Personal history of COVID-19
CPT/HCPCS: 99284